=== PATIENT | male | born 1995 | race Caucasian/White ===

== ENCOUNTER → 2016-03-21 | Outpatient (REF) | payer OTHER ==
[2016-03-21 17:09] LABS: ALBUMIN 3.9 GM/DL (3.2-5.2); ALBUMIN/GLOBULIN RATIO 1.22 (1.00-1.93); ALKALINE PHOSPHATASE 91 U/L (45-117); ALT/SGPT 60 U/L (12-78); ANION GAP 11 MEQ/L (8-16); AST/SGOT 24 U/L (15-37); BILIRUBIN,TOTAL 0.6 MG/DL (0.2-1.0); BLOOD UREA NITROGEN 10 MG/DL (7-18); CARBON DIOXIDE LEVEL 24 MEQ/L (21-32); CHLORIDE LEVEL 106 MEQ/L (98-107); CHOLESTEROL LEVEL 140 MG/DL (<200); CREATININE FOR GFR 1.09 MG/DL (0.70-1.30); GLOMERULAR FILTRATION RATE > 60.0 (>60); GLUCOSE, FASTING 107 MG/DL (70-105); MAGNESIUM LEVEL 2.1 MG/DL (1.8-2.4); POTASSIUM SERUM 4.1 MEQ/L (3.5-5.1); SODIUM LEVEL 141 MEQ/L (136-145); TOTAL PROTEIN 7.1 GM/DL (6.4-8.2); TRIGLYCERIDES LEVEL 108 MG/DL (<150)
== END ==
LOC: M SFHCSACK 08:42
PROVIDERS: ATTEND Physician Assistant
DX: E66.01 Morbid (severe) obesity due to excess calories (principal); Z00.00 Encounter for general adult medical examination without abnormal findings; F41.1 Generalized anxiety disorder

== ENCOUNTER 2018-05-30 04:26 | Emergency (ER) | payer MEDICAID, OTHER, SELFPAY ==
[~2018-05-30] VITALS: Ht 182.9 cm; Wt 171.7 kg
[2018-05-30 04:31] VITALS: BP 155/82
== END 2018-05-30 04:45 | disposition left against medical advice (07) ==
LOC: M ED 04:26
DX: F14.280 Cocaine dependence with cocaine-induced anxiety disorder (principal); T40.5X4A Poisoning by cocaine, undetermined, initial encounter; Y92.9 Unspecified place or not applicable; Y99.8 Other external cause status

== ENCOUNTER 2018-05-30 05:31 | Emergency (ER) | payer MEDICAID, OTHER, SELFPAY ==
[~2018-05-30] VITALS: Ht 188 cm; Wt 172.3 kg
[2018-05-30] MEDS ORDERED: LORazepam 2 MG/ML VIAL (J2060) IV STA (06:12)
[2018-05-30] MEDS ORDERED: NS 1,000 ML IV ONE ×2 (06:15)
[2018-05-30 06:17] LABS: HEMATOCRIT 45.4 % (42.0-52.0); MEAN CORPUSCULAR HEMOGLOBIN 29.5 pg (27.0-33.0); MEAN CORPUSCULAR VOLUME 89.4 fl (80.0-96.0); PLATELET COUNT, AUTOMATED 418 10^3/uL (150-450); RED BLOOD COUNT 5.08 10^6/uL (4.30-6.10); WHITE BLOOD COUNT 22.1 10^3/uL (4.0-10.0)
[2018-05-30 06:31] LABS: MB/CK RELATIVE INDEX 0.8 (< OR =4); TROPONIN I 0.03 NG/ML (< 0.10)
[2018-05-30 06:38] LABS: ALBUMIN 4.6 GM/DL (3.2-5.2); ALT/SGPT 36 U/L (12-78); BILIRUBIN,DIRECT 0.1 MG/DL (0.0-0.2); BILIRUBIN,TOTAL 0.4 MG/DL (0.2-1.0); BLOOD UREA NITROGEN 15 MG/DL (7-18); CALCIUM LEVEL 8.8 MG/DL (8.5-10.1); CARBON DIOXIDE LEVEL 19 MEQ/L (21-32); CHLORIDE LEVEL 105 MEQ/L (98-107); CREATININE FOR GFR 2.01 MG/DL (0.70-1.30); ETHYL ALCOHOL (ETHANOL) 0.003 % (0.000-0.010); GLOMERULAR FILTRATION RATE 43.3 (>60); GLUCOSE, FASTING 247 MG/DL (70-100); POTASSIUM SERUM 3.2 MEQ/L (3.5-5.1); SALICYLATE LEVEL < 1.7 MG/DL (5.0-30.0); SODIUM LEVEL 138 MEQ/L (136-145); TOTAL PROTEIN 7.8 GM/DL (6.4-8.2)
[2018-05-30 06:39] LABS: ACETAMINOPHEN LEVEL < 2.0 UG/ML (10.0-30.0)
[2018-05-30 07:05] LABS: AMPHETAMINES LEVEL URINE NEGATIVE (NEGATIVE); BARBITURATES URINE NEGATIVE (NEGATIVE); BENZODIAZEPINES URINE NEGATIVE (NEGATIVE); CANNABINOIDS URINE POSITIVE (NEGATIVE); COCAINE METABOLITE URINE POSITIVE (NEGATIVE); METHADONE URINE NEGATIVE (NEGATIVE); OPIATES URINE NEGATIVE (NEGATIVE); PHENCYCLIDINE URINE NEGATIVE (NEGATIVE)
[2018-05-30 07:16] VITALS: BP 175/81
--- NOTE | 2018-05-30 07:45 | REP ---
Portable chest, 06:23 a.m., single AP semi upright view: Comparison is 01/19/2016. The lung piedra are clear. The cardiac size is normal. The miladys, mediastinum, and skeletal structures are unremarkable. Impression: Negative portable chest. There is no interval change. Electronically Signed by Deon Cherry MD 05/30/2018 07:37 A
--- NOTE | 2018-05-30 21:53 | ECGEPIP ---
Stationary ECG Study 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
== END 2018-05-30 08:13 | disposition left against medical advice (07) ==
LOC: M ED 05:31
DX: F14.10 Cocaine abuse, uncomplicated (principal)
CPT/HCPCS: 36415; 71045; 80048; 80076; 80307; 82550; 82553; 84443; 85027; 93005; 96361; 96374; 99285; G0480; J2060

== ENCOUNTER 2018-05-31 03:42 | Emergency (ER) | payer OTHER, SELFPAY ==
[~2018-05-31] VITALS: Ht 188 cm; Wt 173.0 kg
[2018-05-31 03:42] VITALS: BP 161/83
== END 2018-05-31 04:16 | disposition left against medical advice (07) ==
LOC: M ED 03:42
DX: Z53.21 Procedure and treatment not carried out due to patient leaving prior to being seen by health care provider (principal)

== ENCOUNTER 2018-05-31 08:57 | Inpatient (IN) | payer MEDICAID, OTHER, SELFPAY ==
[~2018-05-31] VITALS: Ht 190.5 cm; Wt 165.2 kg
[2018-05-31] VITALS (12 sets, daily range): BP systolic 142–162; BP diastolic 75–98
--- NOTE | 2018-05-31 09:53 | REP ---
Chest x-ray: Two views. History: Altered mental status. . Comparison study: May 30, 2018. . Findings: The lungs are well inflated and free of infiltrate. The pleural angles are sharp. The heart size is normal. Pulmonary vasculature is not increased. No significant bony abnormality is seen. Impression: Negative chest x-ray. Electronically Signed by Antione Pollock MD 05/31/2018 09:45 A
[2018-05-31 10:05] LABS: HEMATOCRIT 43.2 % (42.0-52.0); HEMOGLOBIN 14.2 g/dl (13.5-17.5); MEAN CORPUSCULAR HGB CONC 32.9 g/dl (32.0-36.5); MEAN CORPUSCULAR VOLUME 88.3 fl (80.0-96.0); PLATELET COUNT, AUTOMATED 305 10^3/uL (150-450); RED BLOOD COUNT 4.89 10^6/uL (4.30-6.10); WHITE BLOOD COUNT 12.7 10^3/uL (4.0-10.0)
[2018-05-31 10:26] LABS: INFLUENZA A AMPLIFICATION NEGATIVE (NEGATIVE); INFLUENZA B AMPLIFICATION NEGATIVE (NEGATIVE)
[2018-05-31 10:48] LABS: ACETAMINOPHEN LEVEL < 2.0 UG/ML (10.0-30.0); ALBUMIN 4.8 GM/DL (3.2-5.2); ALT/SGPT 45 U/L (12-78); BILIRUBIN,DIRECT 0.2 MG/DL (0.0-0.2); BILIRUBIN,TOTAL 0.8 MG/DL (0.2-1.0); BLOOD UREA NITROGEN 14 MG/DL (7-18); CARBON DIOXIDE LEVEL 23 MEQ/L (21-32); CHLORIDE LEVEL 106 MEQ/L (98-107); CREATININE FOR GFR 1.37 MG/DL (0.70-1.30); ETHYL ALCOHOL (ETHANOL) < 0.003 % (0.000-0.010); GLOMERULAR FILTRATION RATE > 60.0 (>60); GLUCOSE, FASTING 100 MG/DL (70-100); POTASSIUM SERUM 3.7 MEQ/L (3.5-5.1); SALICYLATE LEVEL < 1.7 MG/DL (5.0-30.0); SODIUM LEVEL 142 MEQ/L (136-145)
[2018-05-31 11:21] LABS: AMPHETAMINES LEVEL URINE NEGATIVE (NEGATIVE); BARBITURATES URINE NEGATIVE (NEGATIVE); BENZODIAZEPINES URINE POSITIVE (NEGATIVE); CANNABINOIDS URINE POSITIVE (NEGATIVE); COCAINE METABOLITE URINE POSITIVE (NEGATIVE); METHADONE URINE NEGATIVE (NEGATIVE); OPIATES URINE NEGATIVE (NEGATIVE); PHENCYCLIDINE URINE NEGATIVE (NEGATIVE)
[2018-05-31] MEDS ORDERED: MOM 30ML SUSPENSION UDC PO PRN (13:30)
[2018-05-31] MEDS ORDERED: MAALOX 30 ML SUSP *UDC PO PRN (13:30)
[2018-05-31] MEDS ORDERED: ACETAMINOPHEN TAB 650MG DOSE (2X325MG) PO PRN (13:30)
[2018-05-31] MEDS ORDERED: traZODone 50 MG TAB PO PRN (13:30)
[2018-05-31] MEDS ORDERED: LORazepam 2 MG/ML VIAL (J2060) IM STA (16:46)
[2018-05-31] MEDS ORDERED: chlorproMAZINE INJ 50MG/2ML AMP (J3230) IM STA (16:46)
[2018-05-31] MEDS ORDERED: diphenhydrAMINE INJ 50MG/ML VIAL (J1200) IM STA (16:46)
--- NOTE | 2018-05-31 17:12 | MHIR ---
General Date: May 31, 2018 Time Initiated: 17:07 Restraint Documentation Order/Evaluation FACE TO FACE:yes PHYSICIAN ASSESSMENT: pulled fired alarm, psychotic, paranoid, agitated, aggressive, refusing to move passed pt unit barrier door, refusing medications REASON FOR RESTRAINT: Patient poses imminent danger of harming self or others: pulled fired alarm, psychotic, paranoid, agitated, aggressive, refusing to move passed pt unit barrier door, refusing medications DE-ESCALATION INTERVENTIONS ATTEMPTED BEFORE USE OF RESTRAINTS: redirection, staff support, prn meds offered [MECHANICAL AND/OR CHEMICAL] RESTRAINTS USED: mechanical (fought staff during restraints being applied) and chemical (thorazine 100mg im, ativan 2mg im, benadryl 100mg im) LENGTH OF TIME ORDERED IN RESTRAINTS: until pt no longer a danger to himself or others WHEN TO DISCONTINUE RESTRAINTS: When the patient is no longer a threat to themselves or others. Post evaluation of restraint due in 24 hours. ANAIS SALMERON DO May 31, 2018 5:12 pm
[2018-05-31] MEDS: THIAMINE 100 MG TAB PO SCH (21:00)
[2018-06-01 06:37] VITALS: BP 158/88
[2018-06-01] MEDS: OLANZapine ORAL DISINTEGRATING TAB 5MG PO PRN (06:40)
[2018-06-01 06:48] VITALS: BP 158/88
[2018-06-01] MEDS: LORazepam 2 MG TAB PO PRN ×2 (06:55→14:20)
--- NOTE | 2018-06-01 09:10 | HPE ---
DATE OF ADMISSION: 05/31/2018 Please refer to the psychiatric history and evaluation for further details on this admission. This examination and history is intended for medical issues which may need treatment, followup or consultation on this 23-year-old male. ALLERGIES: No known drug allergies. He has environmental allergies. PRIMARY CARE PROVIDER: He states currently none. SOCIAL HISTORY: He is single. ETOH - he states he drinks daily, though his urine toxicology was negative for alcohol. He says he smokes occasionally. Recreational drug use - his urine was positive for benzodiazepines, cocaine and marijuana. PAST MEDICAL HISTORY: He is unsure, answers are mixed at times. He states he has asthma, but he does not take anything for it, but sometimes he does if it is the season. Currently he says he is taking nothing. PAST SURGICAL HISTORY: He states negative. HOME MEDICATIONS: He states none. FAMILY HISTORY: He is unsure of. LABORATORY STUDIES: White count up slightly at 2.7. Hemoglobin 14.2. Hematocrit 43.2. Platelets 305. BUN 14 and creatinine 1.37. AST 57. ALT 45. TSH 2.33 . Urine was positive for benzodiazepines, cocaine, cannabis. Influenza A negative. Chest x-ray negative. REVIEW OF SYSTEMS: No complaint of headache. No blurred or double vision. No fever. No chills. No tinnitus. No hoarseness. No difficulty swallowing. No lightheadedness. No vertigo. Cardiovascular: No complaints of chest pain, shortness of breath, palpitations, or edema. Respiratory: No cough. No sputum production. No hemoptysis. No orthopnea. No wheeze. GI: No complaints of nausea, vomiting or diarrhea. No hematochezia. No melena. No complaints of abdominal pain. : No hematuria, dysuria or frequency. Musculoskeletal: He is favoring his right arm. He has to use his left hand to move his right arm. He cannot spontaneously move the arm above the shoulder. He says he has just noted this the last couple of days. No joint redness or swelling. Endocrine: No polyuria, polydipsia or polyphagia. Hematologic: No history of anemia. Neurologic: No history of seizures that he knows of. Psychologic: See psychiatric history and physical exam. PHYSICAL EXAMINATION: 23-year-old cooperative male in no acute distress. Height 75 inches. Blood pressure since arrival to the floor and in the ER has been elevated anywhere from 136/97 to 150/98. Pulse 100. Respirations 18. Temperature 98.1. Oxygen saturation 99% on room air. The patient is alert and oriented to person and place. Pupils equal and reactive to light. Extraocular movements intact. Cornea and sclera clear. Conjunctivae normal. No facial asymmetry. Pharynx, tongue and gums pink and moist. Tongue is midline. Neck is supple, without lymphadenopathy. No thyromegaly. No goiter. Carotids 2+, without bruit. Chest clear to auscultation, without wheeze or retraction. Heart is regular. Without murmur or gallop. Abdomen benign. Bowel sounds positive. Genitourinary ()/Rectal: Not done. Extremities show no cyanosis, clubbing or edema. Unable to lift right arm above. He has to use his left hand to grab his right arm and raise the right arm. Hand grasps are equal. Peripheral pulses equal and palpable bilaterally. Skin is warm and dry. IMPRESSION AND PLAN: 1. Psychiatric. Plan per psychiatry. 2. Occasional smoking. nicotine patch is available 3. Inability to move right arm. Sensation is equal. Right shoulder x-ray has been ordered. Will recommend orthopedic consult. 4. Leukocytosis. Will repeat CBC in a.m. MTDD
[2018-06-01] MEDS: THIAMINE 100 MG TAB PO SCH ×2 (09:19→21:17)
[2018-06-01] MEDS: MULTIVITAMINS/MINERALS THERAP 1 TAB PO SCH (09:19)
[2018-06-01] MEDS: FOLIC ACID 1 MG TAB PO SCH (09:19)
--- NOTE | 2018-06-01 10:53 | MHPR ---
General Date: May 31, 2018 Time: 21:00 Post-Restraint Evaluation THE OUTCOME OF THE RESTRAINT: good EFFECTIVENESS OF THE RESTRAINT: Mechanical and/or chemical: positive, pt called down and no longer agitated/aggressive. ANY EVIDENCE THAT THE PATIENT WAS AFFECTED EMOTIONALLY: no ANY NEED FOR COUNSELING/ASSISTANCE: no CHANGES IN TREATMENT PLAN: continue current plan RECOMMENDATIONS FOR FUTURE INCIDENTS: continue current plan ANAIS SALMERON DO Jun 01, 2018 10:53 am
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
[2018-06-01] MEDS ORDERED: PALIPERIDONE 3 MG ER TAB (INVEGA) PO ONE (12:00)
[2018-06-01] MEDS ORDERED: BACITRACIN OINT 30GM TOP SCH (12:30)
[2018-06-01 14:14] VITALS: BP 141/91
[2018-06-01 18:28] VITALS: BP 140/82
[2018-06-01] MEDS: BACITRACIN OINT 30GM TOP SCH (18:49)
[2018-06-01] MEDS ORDERED: PALIPERIDONE 3 MG ER TAB (INVEGA) PO SCH (21:00)
[2018-06-02] MEDS: BACITRACIN OINT 30GM TOP SCH ×2 (00:20→09:42)
[2018-06-02 07:10] VITALS: BP 152/80
[2018-06-02] MEDS: MULTIVITAMINS/MINERALS THERAP 1 TAB PO SCH (09:41)
[2018-06-02] MEDS: THIAMINE 100 MG TAB PO SCH ×2 (09:41→20:24)
[2018-06-02] MEDS: PALIPERIDONE 3 MG ER TAB (INVEGA) PO SCH ×2 (09:41→20:24)
[2018-06-02] MEDS: FOLIC ACID 1 MG TAB PO SCH (09:41)
[2018-06-02] MEDS ORDERED: BENZTROPINE 1 MG TAB PO PRN (12:00)
[2018-06-02] MEDS: BENZTROPINE 1 MG TAB PO SCH ×2 (13:45→20:23)
--- NOTE | 2018-06-02 13:48 | MHIPNPDOC ---
[facility] Progress Note Progress Note DATE OF SERVICE: 06/02/18 HISTORY: See HPI. Interval history: Patient continues to be mildly disorganized, but is less paranoid than previous days. Understand he is safe on the unit and denies others want to harm him or are against him. He continues to have delusions and displays magical thinking discussing how he can influence the world through using "metaphysical spheres of influence". States he has no HI or thoughts of harming others. He also denies SI. He remains somewhat concrete and has trouble with abstract reasoning and associations. He endorses poor recollection of what was happening before he came into the hospital, but states with living with mother in town until this February then reports living with a close friend who he uses drugs with "only once in a while". States he was admitted to [place] in [phone] for being "crazy". VITAL SIGNS: See below. NEW TEST RESULTS: see below, ordered hba1c, lipid panel for tomorrow AM, repeat CMP, CBC pending CURRENT MEDICATIONS: See below. MENTAL STATUS EXAMINATION: Patient is a 23-year old male, who is in no acute distress, alert, oriented, poor hygiene, normal eye-contact, cooperative in hospital clothing. Speech: Is normal rate, rhythm, volume. Language skills are poor. Thought processes including: tangential, mildly disorganized, improved from prior days. Thought content: delusions related to metaphysical universe, magical thinking. Abstract reasoning, and computation: concrete. Description of associations: poor. Description of abnormal or psychotic thoughts: see above, feels safer than previous days and agreeable to treatment. Denies AVH, SI, HI. Judgment: poor. Insight: poor. Orientation: x4. Recent and remote memory: poor. Attention span and concentration: poor, says he is not thinking straight. Language: urdu. Fund of knowledge: Unable to assess. Mood: "alright". Affect: mildly disorganized, less paranoid, does not appear to be responding to internal stimuli. DIAGNOSES: 1.Schizophrenia, paranoid subtype 2. Cocaine/cannabis/benzodiazepines use disorder ASSESSMENT: Was removed from 1: as he consents to safety and has not displayed aggressive behavior while on the unit. Less paranoid compared to Saturday when he was coded for pulling fire alarm. Was counselled regarding cannabis use in context of psychotic disorder, but remains mildly disorganized and tangential with poor insight. For tomorrow AM: Ordered repeat CMP since AST elevated in 50's, Cr was elevated at 1.37, encouraged PO intake. Ordered repeat CBC since mild leukocytosis on admission, denies F. Increased paliperidone from 3 mg PO BID to 3 mg QAM and 6 mg QPM. Reported "nerve pain in L arm" so was started on cogentin 1 mg PO BID for possible EPS, will monitor if symptoms improve. MANAGEMENT PLAN: See above. TIME SPENT: 20 minutes. Vital Signs Vital Signs Date Time Temp Pulse Resp B/P (MAP) Pulse Ox O2 Delivery O2 Flow Rate FiO2 06/02/18 07:10 97.8 70 18 152/80 (104) 05/31/18 14:04 99 Room Air Current Medications Current Medications Acetaminophen (Tylenol Tab) 650 mg Q6HP PRN PO HEADACHE or DISCOMFORT; Start 05/31/18 at 13:30 Al Hydrox/Mg Hydrox/Simethicone (Mylanta) 30 ml Q4HP PRN PO HEARTBURN/INDIGESTION; Start 05/31/18 at 13:30 Bacitracin (Bacitracin Oint) Apply to sores on feet DAILY TOP Last administered on 06/02/18at 09:42; Start 06/01/18 at 09:00 Bacitracin (Bacitracin Oint) Apply to sores on feet DAILYPRN TOP ; Start 06/01/18 at 12:30; Stop 06/01/18 at 12:30; Status DC Chlorpromazine HCl (Thorazine) 100 mg STAT STAT IM Last administered on 05/31/18at 17:06; Start 05/31/18 at 16:46; Stop 05/31/18 at 16:50; Status DC Diphenhydramine HCl (Benadryl) 50 mg STAT STAT IM Last administered on 05/31/18at 17:00; Start 05/31/18 at 16:46; Stop 05/31/18 at 16:50; Status DC Folic Acid (Folic Acid) 1 mg DAILY PO Last administered on 06/02/18at 09:41; Start 06/01/18 at 09:00 Home Med (Med Rec Complete!) ASDIRECTED XX ; Start 05/31/18 at 13:45; Stop 05/31/18 at 13:52; Status DC Lorazepam (Ativan) 2 mg ASDIRECTED PRN PO SEE PROTOCOL Last administered on 06/01/18 14:20; Start 05/31/18 at 20:15 Lorazepam (Ativan) 2 mg STAT STAT IM Last administered on 05/31/18 17:00; Start 05/31/18 at 16:46; Stop 05/31/18 at 16:50; Status DC Magnesium Hydroxide (Milk Of Magnesia) 30 ml DAILYPRN PRN PO CONSTIPATION; Start 05/31/18 at 13:30 Multivitamins (Theragram-M) 1 tab DAILY PO Last administered on 06/02/18 09:41; Start 06/01/18 at 09:00 Olanzapine (ZyPREXA ZYDIS) 10 mg Q6HP PRN PO ANXIETY/AGITATION Last administered on 06/01/18 06:40; Start 05/31/18 at 13:45 Paliperidone (Invega) 3 mg QAM PO Last administered on 06/02/18 09:41; Start 06/02/18 at 09:00 Paliperidone (Invega) 3 mg QHS PO Last administered on 06/01/18 21:17; Start 06/01/18 at 21:00 Thiamine HCl (Thiamine HCl) 100 mg BID PO Last administered on 06/02/18 09:41; Start 05/31/18 at 21:00; Stop 06/03/18 at 09:01 Trazodone HCl (Desyrel) 50 mg QHSP PRN PO INSOMNIA Last administered on 06/01/18 21:17; Start 05/31/18 at 13:30 Allergies Coded Allergies: No Known Allergies (Verified , 05/31/18) KATELYN MATTA PGY-1 Jun 02, 2018 11:55
[2018-06-02 18:00] VITALS: BP 134/92
[2018-06-02 22:21] VITALS: BP 134/92
[2018-06-03 06:50] VITALS: BP 127/69
[2018-06-03 06:56] VITALS: BP 127/69
[2018-06-03 07:24] LABS: HEMATOCRIT 43.5 % (42.0-52.0); HEMOGLOBIN 14.3 g/dl (13.5-17.5); MEAN CORPUSCULAR HEMOGLOBIN 29.1 pg (27.0-33.0); MEAN CORPUSCULAR HGB CONC 32.9 g/dl (32.0-36.5); MEAN CORPUSCULAR VOLUME 88.4 fl (80.0-96.0); PLATELET COUNT, AUTOMATED 286 10^3/uL (150-450); RED BLOOD COUNT 4.92 10^6/uL (4.30-6.10); WHITE BLOOD COUNT 8.4 10^3/uL (4.0-10.0)
[2018-06-03 07:52] LABS: HEMOGLOBIN A1c 5.2 %
[2018-06-03 08:03] LABS: ALBUMIN 3.8 GM/DL (3.2-5.2); ALT/SGPT 37 U/L (12-78); BILIRUBIN,TOTAL 0.8 MG/DL (0.2-1.0); BLOOD UREA NITROGEN 9 MG/DL (7-18); CALCIUM LEVEL 8.9 MG/DL (8.5-10.1); CARBON DIOXIDE LEVEL 28 MEQ/L (21-32); CHLORIDE LEVEL 109 MEQ/L (98-107); CHOLESTEROL LEVEL 128 MG/DL (<200); CHOLESTEROL RISK RATIO 3.282 (<5); CREATININE FOR GFR 1.14 MG/DL (0.70-1.30); GLOMERULAR FILTRATION RATE > 60.0 (>60); GLUCOSE, FASTING 92 MG/DL (70-100); HDL CHOLESTEROL 39 MG/DL (>40); LDL CHOLESTEROL 74 MG/DL (<100); NON-HDL-C 89 MG/DL; POTASSIUM SERUM 3.9 MEQ/L (3.5-5.1); SODIUM LEVEL 142 MEQ/L (136-145); TOTAL PROTEIN 6.7 GM/DL (6.4-8.2); TRIGLYCERIDES LEVEL 74 MG/DL (<150)
[2018-06-03] MEDS: BENZTROPINE 1 MG TAB PO SCH ×2 (09:46→21:23)
[2018-06-03] MEDS: FOLIC ACID 1 MG TAB PO SCH (09:46)
[2018-06-03] MEDS: MULTIVITAMINS/MINERALS THERAP 1 TAB PO SCH (09:46)
[2018-06-03] MEDS: THIAMINE 100 MG TAB PO SCH (09:46)
[2018-06-03] MEDS: PALIPERIDONE 3 MG ER TAB (INVEGA) PO SCH ×2 (09:46→21:24)
[2018-06-03] MEDS: BACITRACIN OINT 30GM TOP SCH (09:46)
--- NOTE | 2018-06-03 12:04 | MHIPNPDOC ---
[facility] Progress Note Progress Note DATE OF SERVICE: 06/03/18 HISTORY: See HPI. Interval history: Patient says he is feeling better today. He is no longer standing outside his room paranoid. He appeared more comfortable and organized during interview. States he is not currently having AVH/SI/HI. Says his mood is improving and he is less anxious. No longer interested in metaphysical purposes of being. Agreeable to receiving paliperidone injection tomorrow possibly, but does endorse being unable to raise his R arm, still has sensation in hand, no coldness and little to no pain. He agrees to get xray re-ordered since he was disorganized when last ordered. Says he will try to start attending groups. VITAL SIGNS: See below. NEW TEST RESULTS: see below, hba1c 5.2%, lipid panel WNL apart from low HDL at 39 mg/dl. CURRENT MEDICATIONS: See below. MENTAL STATUS EXAMINATION: Patient is a 23-year old male, who is in no acute distress, alert, oriented, poor hygiene, normal eye-contact, cooperative in hospital clothing. Speech: Is normal rate, rhythm, volume. Language skills are poor. Thought processes including: tangential, mildly disorganized, improved from prior days. Thought content: delusions related to metaphysical universe, magical thinking. Abstract reasoning, and computation: improving Description of associations: imp roving Description of abnormal or psychotic thoughts: see above, feels safer than previous days and agreeable to treatment. Denies AVH, SI, HI. Judgment: poor. Insight: poor. Orientation: x4. Recent and remote memory: poor. Attention span and concentration: poor, says he is not thinking straight. Language: yemeni. Fund of knowledge: Unable to assess. Mood: "good". Affect: less disorganized, mild anxiety. DIAGNOSES: 1. Schizophrenia, paranoid subtype 2. Cocaine/cannabis/benzodiazepines use disorder ASSESSMENT: Today he no longer displays magical thinking and is more organized, denies AVH, cosme. Agrees to re-ordered R shoulder xray for weakness R arm. Will consider orthopedics consult. Agrees to continue medications including paliperid one 3 mg QAM, 6 mg QHS, with plan for Im injection. Labs are unremarkable and apart from his R arm, he is relatively calm and comfortable. Denies SI/HI/AVH/cosme, agreeable to continued to stay for stabilization and safety. Counselled regarding substance use, including cocaine and particularly cannabis which can worsen psychosis and pose serious health risk, as well as risks from benzodiazepine withdrawal, including psychosis and possible risk of /withdrawal seizures. MANAGEMENT PLAN: See above. TIME SPENT: 25 minutes. Vital Signs Vital Signs Date Time Temp Pulse Resp B/P (MAP) Pulse Ox O2 Delivery O2 Flow Rate FiO2 06/03/18 06:56 101 127/69 06/03/18 06:50 97.6 14 06/02/18 18:00 99 05/31/18 14:04 Room Air Laboratory Data 24H Labs Laboratory Tests 2 06/03/18 07:00: Nucleated Red Blood Cells % (auto) 0.0, Anion Gap 5L, Glomerular Filtration Rate > 60.0, Estimated Mean Plasma Glucose 103, Hemoglobin A1c 5.2, Blood Urea Nitrogen 9, Creatinine 1.14, Sodium Level 142, Potassium Level 3.9, Chloride Level 109H, Carbon Dioxide Level 28, Calcium Level 8.9, Aspartate Amino Transf (AST/SGOT) 28, Alanine Aminotransferase (ALT/SGPT) 37, Alkaline Phosphatase 64, Total Bilirubin 0.8, Triglycerides Level 74, LDL Cholesterol 74, Total Protein 6.7, Albumin 3.8#, Albumin/Globulin Ratio 1.31, Total Cholesterol 128, Non-HDL Cholesterol (LDL + VLDL) 89, Total HDL Cholesterol 39L, Cholesterol/HDL Ratio 3.282 CBC/BMP Laboratory Tests 06/03/18 07:00 Red Blood Count 4.92, Mean Corpuscular Volume 88.4, Mean Corpuscular Hemoglobin 29.1, Mean Corpuscular Hemoglobin Concent 32.9, Red Cell Distribution Width 12.9, Calcium Level 8.9, Aspartate Amino Transf (AST/SGOT) 28, Alanine Aminotransferase (ALT/SGPT) 37, Alkaline Phosphatase 64, Total Bilirubin 0.8, Triglycerides Level 74, LDL Cholesterol 74, Total Protein 6.7, Albumin 3.8 # Current Medications Current Medications Acetaminophen (Tylenol Tab) 650 mg Q6HP PRN PO HEADACHE or DISCOMFORT; Start 05/31/18 at 13:30 Al Hydrox/Mg Hydrox/Simethicone (Mylanta) 30 ml Q4HP PRN PO HEARTBURN/INDIGESTION; Start 05/31/18 at 13:30 Bacitracin (Bacitracin Oint) Apply to sores on feet DAILY TOP Last administered on 06/03/18at 09:46; Start 06/01/18 at 09:00 Bacitracin (Bacitracin Oint) Apply to sores on feet DAILYPRN TOP ; Start 06/01/18 at 12:30; Stop 06/01/18 at 12:30; Status DC Benztropine Mesylate (Cogentin) 1 mg BID PO Last administered on 06/03/18at 09:46; Start 06/02/18 at 13:45 Benztropine Mesylate (Cogentin) 1 mg Q2HP PRN PO INCREASED AGITATION; Start 06/02/18 at 12:00; Status Cancel Chlorpromazine HCl (Thorazine) 100 mg STAT STAT IM Last administered on 05/31/18at 17:06; Start 05/31/18 at 16:46; Stop 05/31/18 at 16:50; Status DC Diphenhydramine HCl (Benadryl) 50 mg STAT STAT IM Last administered on 05/31/18at 17:00; Start 05/31/18 at 16:46; Stop 05/31/18 at 16:50; Status DC Folic Acid (Folic Acid) 1 mg DAILY PO Last administered on 06/03/18at 09:46; Start 06/01/18 at 09:00 Home Med (Med Rec Complete!) ASDIRECTED XX ; Start 05/31/18 at 13:45; Stop 05/31/18 at 13:52; Status DC Lorazepam (Ativan) 2 mg ASDIRECTED PRN PO SEE PROTOCOL Last administered on 06/01/18at 14:20; Start 05/31/18 at 20:15 Lorazepam (Ativan) 2 mg STAT STAT IM Last administered on 05/31/18at 17:00; Start 05/31/18 at 16:46; Stop 05/31/18 at 16:50; Status DC Magnesium Hydroxide (Milk Of Magnesia) 30 ml DAILYPRN PRN PO CONSTIPATION; Start 05/31/18 at 13:30 Multivitamins (Theragram-M) 1 tab DAILY PO Last administered on 06/03/18at 09:46; Start 06/01/18 at 09:00 Olanzapine (ZyPREXA ZYDIS) 10 mg Q6HP PRN PO ANXIETY/AGITATION Last admini stered on 06/01/18 06:40; Start 05/31/18 at 13:45 Paliperidone (Invega) 3 mg QAM PO Last administered on 06/03/18 09:46; Start 06/02/18 at 09:00 Paliperidone (Invega) 3 mg QHS PO Last administered on 06/01/18 21:17; Start 06/01/18 at 21:00; Stop 06/02/18 at 12:03; Status DC Paliperidone (Invega) 6 mg QHS PO Last administered on 06/02/18at 20:24; Start 06/02/18 at 21:00 Thiamine HCl (Thiamine HCl) 100 mg BID PO Last administered on 06/03/18 09:46; Start 05/31/18 at 21:00; Stop 06/03/18 at 09:01; Status DC Trazodone HCl (Desyrel) 50 mg QHSP PRN PO INSOMNIA Last administered on 06/01/18 21:17; Start 05/31/18 at 13:30 Allergies Coded Allergies: No Known Allergies (Verified , 05/31/18) KATELYN MATTA PGY-1 Jun 03, 2018 12:04
--- NOTE | 2018-06-03 14:39 | REP ---
REASON: Shoulder weakness. PRIORS: None. SHOULDER: COMPARISON: No priors. FINDINGS: Three views of the right shoulder were performed. The acromioclavicular and glenohumeral relationships are within normal limits. There is no acute fracture or destructive osseous lesions. Electronically Signed by Duncan Spencer DO 06/03/2018 03:53 P
[2018-06-03 18:32] VITALS: BP 140/81
[2018-06-04 06:59] VITALS: BP 133/65
[2018-06-04 07:00] VITALS: BP 133/65
[2018-06-04] MEDS: FOLIC ACID 1 MG TAB PO SCH (08:26)
[2018-06-04] MEDS: MULTIVITAMINS/MINERALS THERAP 1 TAB PO SCH (08:26)
[2018-06-04] MEDS: PALIPERIDONE 3 MG ER TAB (INVEGA) PO SCH ×2 (08:26→20:18)
[2018-06-04] MEDS: BENZTROPINE 1 MG TAB PO SCH ×2 (08:26→20:18)
[2018-06-04] MEDS: BACITRACIN OINT 30GM TOP SCH (08:27)
[2018-06-04] MEDS ORDERED: PALIPERIDONE PALMITATE 234 MG/1.5 ML INJ (INVEGA SUSTENNA)(J2426) IM ONE (11:00)
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
[2018-06-04 18:00] VITALS: BP 128/78
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
[2018-06-05 07:09] VITALS: BP 146/68
[2018-06-05] MEDS: BENZTROPINE 1 MG TAB PO SCH ×2 (08:13→21:15)
[2018-06-05] MEDS: FOLIC ACID 1 MG TAB PO SCH (08:13)
[2018-06-05] MEDS: MULTIVITAMINS/MINERALS THERAP 1 TAB PO SCH (08:13)
[2018-06-05] MEDS: BACITRACIN OINT 30GM TOP SCH ×2 (08:14→21:16)
--- NOTE | 2018-06-05 08:16 | REP ---
CT Head without contrast HISTORY: Brachial plexus injury COMPARISON: None There is no intraparenchymal hemorrhage, acute infarct, mass or midline shift. The ventricular system is normal in appearance. There is no extra cerebral collection. There is no fracture. The visualized sinuses are clear. IMPRESSION: There is no intracranial lesion. Electronically Signed by Mario Evans MD 06/05/2018 08:07 A
--- NOTE | 2018-06-05 08:27 | REP ---
CT cervical spine without contrast HISTORY: Possible brachial plexus injury COMPARISON: None There is no acute fracture or subluxation. There is no disc bulge or herniation. The spinal canal and neural foramina are patent. The intervertebral discs and vertebral bodies are normal in height. IMPRESSION: There is no acute fracture or subluxation. Electronically Signed by Mario Evans MD 06/05/2018 08:18 A
--- NOTE | 2018-06-05 15:46 | ECGEPIP ---
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 Electronically Signed On 06-05-2018 15:46:40 EDT by Gato Head
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
[2018-06-05 18:09] VITALS: BP 120/80
[2018-06-05] MEDS ORDERED: ALPRAZolam 0.5 MG TAB PO ONE (19:30)
[2018-06-05] MEDS: PALIPERIDONE 3 MG ER TAB (INVEGA) PO SCH (21:15)
[2018-06-06 07:00] VITALS: BP 141/75
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
--- NOTE | 2018-06-06 09:06 | REP ---
MR CERVICAL SPINE WITHOUT CONTRAST: HISTORY: Right arm weakness. There is no disc bulge or herniation. The spinal canal and neural foramina are patent. The spinal cord is normal in signal intensity. Addie signal intensity is present in the cervical vertebral bodies. There is slight loss of the normal lordotic curve. IMPRESSION: There is no disc bulge or herniation. Electronically Signed by Mario Evans MD 06/06/2018 09:09 A
[2018-06-06] MEDS: BENZTROPINE 1 MG TAB PO SCH ×2 (09:34→20:49)
[2018-06-06] MEDS: FOLIC ACID 1 MG TAB PO SCH (09:34)
[2018-06-06] MEDS: MULTIVITAMINS/MINERALS THERAP 1 TAB PO SCH (09:34)
[2018-06-06] MEDS: BACITRACIN OINT 30GM TOP SCH ×2 (09:35→20:50)
--- NOTE | 2018-06-06 12:52 | MHIPNPDOC ---
[facility] Progress Note Progress Note DATE OF SERVICE: 06/06/18 MENTAL STATUS EXAMINATION: Patient is a 23-year old male, who is in no acute distress, alert, oriented, good hygiene, normal eye-contact, cooperative in hospital clothing. Speech: Is normal rate, rhythm, volume. Language skills are fair Thought processes including: linear, logical Thought content: I didn't elicit today any metaphysical/magical delusions Abstract reasoning, and computation: fair. He is able to subtract 7's from a hundred Description of associations: normal Description of abnormal or psychotic thoughts: Denies AVH, SI, HI. Judgment: improving Insight: fair Orientation: x4. Recent and remote memory: improving but he has memory gaps of events that happe chuy during his childhood Attention span and concentration: improved Language: Upper Sorbian. Fund of knowledge: borderline Mood: "I can think clearly now, it wa never like this before". Affect: euthymic, less anxious, full range, smiles/laughs. DIAGNOSES: 1. Schizophrenia, paranoid subtype 2. Cocaine/cannabis/benzodiazepines use disorder ASSESSMENT: Patient couldn't have his MRI performed last night because he felt extremely uncomfortable with his arm and shoulder squeezed and he experienced numbness in his arm and his hand, therefore the test was cancelled but apparently the Cervical spine MRI could be performed and it is normal. He say he is beginning to have some sensation on his right hand but there's no major change. Dr. Lopez saw him yesterday and he recommended the MRI because previous records were retrieved and it was noticed that the patient has no metal implants in his body. He also recommended an EMG that would have to b performed as outpatient. Patient's mental status has greatly improved. I couldn't elicit any paranoia or bizarre delusions. His mood and affect have improved. Possible discharge on Saturday. [facility] referral has been done. MANAGEMENT PLAN: See above. TIME SPENT: 20 minutes. Vital Signs Vital Signs Date Time Temp Pulse Resp B/P (MAP) Pulse Ox O2 Delivery O2 Flow Rate FiO2 06/06/18 07:00 98.1 62 16 141/75 (97) 06/05/18 08:21 Room Air 06/04/18 18:00 99 Current Medications Current Medications Acetaminophen (Tylenol Tab) 650 mg Q6HP PRN PO HEADACHE or DISCOMFORT; Start 05/31/18 at 13:30 Al Hydrox/Mg Hydrox/Simethicone (Mylanta) 30 ml Q4HP PRN PO HEARTBURN/INDIGESTION; Start 05/31/18 at 13:30 Bacitracin (Bacitracin Oint) Apply to sores on feet BID TOP Last administered on 06/06/18at 09:35; Start 06/05/18 at 21:00 Bacitracin (Bacitracin Oint) Apply to sores on feet DAILY TOP Last administered on 06/05/18at 08:14; Start 06/01/18 at 09:00; Stop 06/05/18 at 09:48; Status DC Bacitracin (Bacitracin Oint) Apply to sores on feet DAILYPRN TOP ; Start 06/01/18 at 12:30; Stop 06/01/18 at 12:30; Status DC Benztropine Mesylate (Cogentin) 1 mg BID PO Last administered on 06/06/18at 09:34; Start 06/02/18 at 13:45 Benztropine Mesylate (Cogentin) 1 mg Q2HP PRN PO INCREASED AGITATION; Start 06/02/18 at 12:00; Status Cancel Chlorpromazine HCl (Thorazine) 100 mg STAT STAT IM Last administered on 05/31/18at 17:06; Start 05/31/18 at 16:46; Stop 05/31/18 at 16:50; Status DC Diphenhydramine HCl (Benadryl) 50 mg STAT STAT IM Last administered on 05/31/18at 17:00; Start 05/31/18 at 16:46; Stop 05/31/18 at 16:50; Status DC Folic Acid (Folic Acid) 1 mg DAILY PO Last administered on 06/06/18at 09:34; Start 06/01/18 at 09:00 Home Med (Med Rec Complete!) ASDIRECTED XX ; Start 05/31/18 at 13:45; Stop 05/31/18 at 13:52; Status DC Lorazepam (Ativan) 2 mg ASDIRECTED PRN PO SEE PROTOCOL Last administered on 06/01/18at 14:20; Start 05/31/18 at 20:15 Lorazepam (Ativan) 2 mg STAT STAT IM Last administered on 05/31/18at 17:00; Start 05/31/18 at 16:46; Stop 05/31/18 at 16:50; Status DC Magnesium Hydroxide (Milk Of Magnesia) 30 ml DAILYPRN PRN PO CONSTIPATION; Start 05/31/18 at 13:30 Multivitamins (Theragram-M) 1 tab DAILY PO Last administered on 06/06/18 09:34; Start 06/01/18 at 09:00 Olanzapine (ZyPREXA ZYDIS) 10 mg Q6HP PRN PO ANXIETY/AGITATION Last administered on 06/01/18at 06:40; Start 05/31/18 at 13:45 Paliperidone (Invega) 3 mg QAM PO Last administered on 06/04/18at 08:26; Start 06/02/18 at 09:00; Stop 06/04/18 at 09:56; Status DC Paliperidone (Invega) 3 mg QHS PO Last administered on 06/01/18at 21:17; Start 06/01/18 at 21:00; Stop 06/02/18 at 12:03; Status DC Paliperidone (Invega) 6 mg QHS PO Last administered on 06/05/18at 21:15; Start 06/02/18 at 21:00 Thiamine HCl (Thiamine HCl) 100 mg BID PO Last administered on 06/03/18at 09:46; Start 05/31/18 at 21:00; Stop 06/03/18 at 09:01; Status DC Trazodone HCl (Desyrel) 50 mg QHSP PRN PO INSOMNIA Last administered on 06/01/18 21:17; Start 05/31/18 at 13:30 Allergies Coded Allergies: No Known Allergies (Verified , 05/31/18) LAY JEROME MD Jun 06, 2018 12:47
[2018-06-06 17:24] VITALS: BP 146/74
[2018-06-06 18:08] VITALS: BP 133/77
[2018-06-06] MEDS: PALIPERIDONE 3 MG ER TAB (INVEGA) PO SCH (20:49)
[2018-06-07 07:13] VITALS: BP 105/65
[2018-06-07] MEDS: MULTIVITAMINS/MINERALS THERAP 1 TAB PO SCH (08:13)
[2018-06-07] MEDS: BENZTROPINE 1 MG TAB PO SCH ×2 (08:13→20:19)
[2018-06-07] MEDS: BACITRACIN OINT 30GM TOP SCH ×2 (08:13→20:19)
[2018-06-07] MEDS: FOLIC ACID 1 MG TAB PO SCH (08:13)
[2018-06-07 18:00] VITALS: BP 123/69
[2018-06-07] MEDS: PALIPERIDONE 3 MG ER TAB (INVEGA) PO SCH (20:19)
[2018-06-08 06:36] VITALS: BP 132/63
[2018-06-08] MEDS: MULTIVITAMINS/MINERALS THERAP 1 TAB PO SCH (09:10)
[2018-06-08] MEDS: FOLIC ACID 1 MG TAB PO SCH (09:10)
[2018-06-08] MEDS: BENZTROPINE 1 MG TAB PO SCH ×2 (09:10→20:33)
[2018-06-08] MEDS: BACITRACIN OINT 30GM TOP SCH ×2 (09:10→20:33)
[2018-06-08 18:00] VITALS: BP 135/79
[2018-06-08] MEDS: OLANZapine ORAL DISINTEGRATING TAB 5MG PO PRN (19:36)
[2018-06-08] MEDS: PALIPERIDONE 3 MG ER TAB (INVEGA) PO SCH (20:33)
[2018-06-09 06:38] VITALS: BP 138/73
[2018-06-09] MEDS: FOLIC ACID 1 MG TAB PO SCH (08:09)
[2018-06-09] MEDS: BENZTROPINE 1 MG TAB PO SCH (08:09)
[2018-06-09] MEDS: MULTIVITAMINS/MINERALS THERAP 1 TAB PO SCH (08:09)
[2018-06-09] MEDS: BACITRACIN OINT 30GM TOP SCH (08:10)
[2018-06-09] MEDS ORDERED: OLANZapine ORAL DISINTEGRATING TAB 5MG PO SCH (09:00)
[2018-06-09] MEDS ORDERED: PALIPERIDONE PALMITATE 156 MG/1ML INJ(INVEGA SUSTENNA)(J2426) IM ONE (10:15)
[2018-06-09] MEDS ORDERED: TRAZO50TA PO (11:10)
[2018-06-09] MEDS ORDERED: ZYPR5TAB2 PO (11:10)
[2018-06-09] MEDS ORDERED: BENZ-52 PO (11:10)
[2018-06-09] MEDS ORDERED: BACI50OI TOP (11:10)
[2018-06-09] MEDS ORDERED: VITMTA PO (11:10)
[2018-06-09] MEDS ORDERED: FOLI1TAB11 PO (11:10)
[2018-06-09] MEDS ORDERED: INVE234I IM ×2 (11:12→11:16)
[2018-06-09] MEDS ORDERED: LORazepam 2 MG TAB PO PRN (11:15)
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
== END 2018-06-09 11:45 | disposition home or self-care (01) | DRG 750 ==
LOC: M ED 08:57 → M ED INP 13:25 → M PSY 14:20
PROVIDERS: ADMIT Psychiatry & Neurology Psychiatry; ATTEND Psychiatry & Neurology Psychiatry
DX: F20.0 Paranoid schizophrenia (principal); F14.90 Cocaine use, unspecified, uncomplicated; F12.90 Cannabis use, unspecified, uncomplicated; F15.90 Other stimulant use, unspecified, uncomplicated; Z91.19 Patient's noncompliance with other medical treatment and regimen; Z79.899 Other long term (current) drug therapy; R20.0 Anesthesia of skin; G54.0 Brachial plexus disorders

== ENCOUNTER → 2018-06-27 | Outpatient (CLI) | payer OTHER, MEDICAID ==
[~2018-06-27] MED LIST: BACI50OI TOP; BENZ-52 PO; FOLI1TAB11 PO; INVE234I IM; TRAZO50TA PO; VITMTA PO; ZYPR5TAB2 PO
== END ==
LOC: M OUTALCOH 07:53
PROVIDERS: ATTEND Psychiatry & Neurology Psychiatry
DX: F12.20 Cannabis dependence, uncomplicated (principal)

== ENCOUNTER → 2018-08-15 | Outpatient (CLI) | payer MEDICAID ==
[~2018-08-15] MED LIST changes: +TRAZ1TAB10 PO; -TRAZO50TA PO
--- NOTE | 2018-08-15 14:56 | REP ---
MRI BRACHIAL PLEXUS WITHOUT AND WITH IV CONTRAST: HISTORY: Right brachial plexus symptoms. Weakness. Anesthesia of the skin. COMPARISON: MRI cervical spine June 05, 2018. CONTRAST ENHANCEMENT DOSE: 20 mL of intravenous ProHance. TECHNIQUE: Axial coronal and sagittal imaging planes are utilized. T1- and T2-weighted sequences are included with and without fat saturation. MRI FINDINGS: There is no evidence of brachial plexus mass or impingement. Subclavian artery and vein are uncompressed and brachial plexus elements course adjacent to the vessels without deviation or displacement. T2-weighted scans show no evidence to suggest perineural edema or nerve root avulsion. The visualized cervicothoracic spinal cord is unremarkable. The right thyroid lobe is unremarkable. No cervical mass or adenopathy is seen. No supraclavicular mass or adenopathy is observed. There is however a soft tissue structure in the middle mediastinum on the right posterior and lateral to the trachea and esophagus just below the thoracic inlet. This is incompletely included in the imaging field of view but could be a mediastinal adenopathy or a prevertebral soft tissue lesion. The area in question measures 1.8 cm in AP dimension x 2.0 cm right to left x 3.9 cm craniocaudal although it is incompletely included in the imaging field of view. Consider contrast enhanced chest CT for more complete visualization of the mediastinum. No abnormal contrast enhancement is appreciated. IMPRESSION: No evidence of brachial plexus lesion. Question middle mediastinal mass or adenopathy just below the thoracic inlet on the right lateral to the upper esophagus. Consider CT study of the chest with IV contrast for further evaluation. Electronically Signed by Antione Pollock MD 08/15/2018 04:24 P
== END ==
LOC: M PLARAD 11:04
PROVIDERS: ATTEND Psychiatry & Neurology Neurology
DX: G54.0 Brachial plexus disorders (principal)

== ENCOUNTER → 2018-09-26 | Outpatient (CLI) | payer MEDICAID, SELFPAY | LOC: M OUTALCOH 07:42 | PROVIDERS: ATTEND Psychiatry & Neurology Psychiatry | DX: F12.20 Cannabis dependence, uncomplicated (principal) ==

== ENCOUNTER 2018-10-15 15:58 | Outpatient (RCR) | payer SELFPAY | END 2018-10-18 | LOC: M OUTALCOH 15:58 | PROVIDERS: ATTEND Psychiatry & Neurology Psychiatry | DX: F12.20 Cannabis dependence, uncomplicated (principal); Z72.0 Tobacco use ==

== ENCOUNTER 2018-11-13 10:00 | Outpatient (RCR) | payer MEDICAID, SELFPAY | END 2018-11-17 | LOC: M OUTALCOH 10:00 | PROVIDERS: ATTEND Psychiatry & Neurology Psychiatry | DX: F12.20 Cannabis dependence, uncomplicated (principal); Z72.0 Tobacco use ==

== ENCOUNTER 2019-05-02 21:02 | Emergency (ER) | payer MEDICAID ==
[~2019-05-02] VITALS: Ht 198.1 cm; Wt 179.6 kg
[2019-05-02 22:02] LABS: INFLUENZA A AMPLIFICATION NEGATIVE (NEGATIVE); INFLUENZA B AMPLIFICATION NEGATIVE (NEGATIVE)
[2019-05-02] MEDS ORDERED: BENZ200C70 PO (23:45)
[2019-05-02] MEDS ORDERED: VENTAER INH (23:45)
[2019-05-03 00:07] VITALS: BP 138/88
--- NOTE | 2019-05-03 14:25 | REP ---
REASON: Cough, dyspnea, fever. TWO-VIEW CHEST: COMPARISON: No priors. FINDINGS: The superior mediastinal structures are midline. The cardiac silhouette is unremarkable in size, shape, and position. The diaphragmatic surfaces of the lungs are regular, and the costophrenic angles are clear. The pulmonary piedra are clear. The imaged osseous structures are intact. IMPRESSION: There is no acute cardiopulmonary disease. Unreviewed
== END 2019-05-03 00:09 | disposition home or self-care (01) ==
LOC: M ED 21:02
DX: J06.9 Acute upper respiratory infection, unspecified (principal); R05 Cough; F17.290 Nicotine dependence, other tobacco product, uncomplicated; F12.20 Cannabis dependence, uncomplicated

== ENCOUNTER 2019-06-24 08:02 | Emergency (ER) | payer OTHER, MEDICAID ==
[~2019-06-24] VITALS: Ht 198.1 cm; Wt 179.4 kg
[~2019-06-24 08:02] MED LIST changes: +BENZ200C70 PO; +VENTAER INH
[2019-06-24 08:03] VITALS: BP 163/94
[2019-06-24] MEDS ORDERED: LIDOCAINE W/EPINEPHRINE 1% 20ML VIAL SC ONE (08:45)
== END 2019-06-24 08:55 | disposition left against medical advice (07) ==
LOC: M ED 08:02
DX: L02.415 Cutaneous abscess of right lower limb (principal); Z53.21 Procedure and treatment not carried out due to patient leaving prior to being seen by health care provider

== ENCOUNTER 2019-08-24 10:45 | Inpatient (IN) | payer MEDICAID, OTHER ==
[~2019-08-24] VITALS: Ht 195.6 cm; Wt 172.6 kg
[2019-08-24 11:42] LABS: HEMATOCRIT 40.4 % (42.0-52.0); MEAN CORPUSCULAR HEMOGLOBIN 29.3 pg (27.0-33.0); MEAN CORPUSCULAR HGB CONC 32.2 g/dl (32.0-36.5); MEAN CORPUSCULAR VOLUME 91.2 fl (80.0-96.0); PLATELET COUNT, AUTOMATED 293 10^3/uL (150-450); RED BLOOD COUNT 4.43 10^6/uL (4.30-6.10)
[2019-08-24 12:39] LABS: ALT/SGPT 35 U/L (12-78); BILIRUBIN,DIRECT 0.2 MG/DL (0.0-0.2); BILIRUBIN,TOTAL 0.6 MG/DL (0.2-1.0); BLOOD UREA NITROGEN 14 MG/DL (7-18); CARBON DIOXIDE LEVEL 28 MEQ/L (21-32); CHLORIDE LEVEL 106 MEQ/L (98-107); CREATININE FOR GFR 1.08 MG/DL (0.70-1.30); ETHYL ALCOHOL (ETHANOL) < 0.003 % (0.000-0.010); GLOMERULAR FILTRATION RATE > 60.0 (>60); GLUCOSE, FASTING 86 MG/DL (70-100); POTASSIUM SERUM 3.6 MEQ/L (3.5-5.1); SALICYLATE LEVEL < 1.7 MG/DL (5.0-30.0); SODIUM LEVEL 138 MEQ/L (136-145); TOTAL PROTEIN 7.6 GM/DL (6.4-8.2)
[2019-08-24 12:41] LABS: ACETAMINOPHEN LEVEL < 2.0 UG/ML (10.0-30.0)
[2019-08-24 13:47] LABS: AMPHETAMINES LEVEL URINE POSITIVE (NEGATIVE); BARBITURATES URINE NEGATIVE (NEGATIVE); BENZODIAZEPINES URINE NEGATIVE (NEGATIVE); CANNABINOIDS URINE POSITIVE (NEGATIVE); COCAINE METABOLITE URINE NEGATIVE (NEGATIVE); METHADONE URINE NEGATIVE (NEGATIVE); OPIATES URINE NEGATIVE (NEGATIVE); PHENCYCLIDINE URINE NEGATIVE (NEGATIVE)
[2019-08-24] MEDS ORDERED: VITACAP8 PO (14:27)
[2019-08-24] MEDS ORDERED: VITAD1000T PO (14:30)
[2019-08-24] MEDS ORDERED: MOM 30ML SUSPENSION UDC PO PRN (16:45)
[2019-08-24] MEDS ORDERED: ACETAMINOPHEN TAB 650MG DOSE (2X325MG) PO PRN (16:45)
[2019-08-24] MEDS ORDERED: MAALOX 30 ML SUSP *UDC PO PRN (16:45)
[2019-08-24] MEDS ORDERED: OLANZapine 5 MG TAB PO SCH (21:00)
[2019-08-25] MEDS: traZODone 50 MG TAB PO PRN (00:06)
[2019-08-25 00:36] VITALS: BP 137/90
[2019-08-25 07:06] VITALS: BP 122/86
[2019-08-25] MEDS: OLANZapine 5 MG TAB PO SCH ×2 (11:02→20:50)
[2019-08-25] MEDS: NEOSPORIN TOP OINT 15GM TOP SCH ×2 (13:35→20:50)
[2019-08-25 17:33] VITALS: BP 133/89
--- NOTE | 2019-08-25 18:47 | HPEPDOC ---
General Date of Admission Aug 24, 2019 at 16:35 Date of Service: Aug 25, 2019 Attending Physician: NYDIA PORTILLO MD Chief Complaint The patient is a 24-year-old male admitted with a reason for visit of Unspecified Psychotic Disorder. Source: Patient, RN/MD Exam Limitations: No limitations History of Present Illness 24 yo M with a history of schizophrenia, PSUD who presented in eric psychosis and is admitted to the [facility], with medicine consulted for H&P. On my evaluation, he has no physical complaints and is in florrid psychosis. Home Medications Scheduled Cholecalciferol (Vitamin D3) (Vitamin D3) 1,000 Unit Tablet, 1,000 UNITS PO DAILY, (Reported) TAKES IN WINTER FOR VITAMIN D DEFICIENCY. Vitamin B Complex (Vitamin B Complex) 1 Each Capsule, 1 CAP PO DAILY, (Reported) Allergies Coded Allergies: [place] (Verified Allergy, Intermediate, 05/02/19) Mouth gets itchy Past Medical History Medical History Schizophrenia depression anxiety Surgical History none Family History Significant Family History: No pertinent family hx Social History Alcohol: occationally Drugs: marijuana, other (amphetamines) Recent Travel/Sick Contacts: Denies: Recent travel, Recent sick contacts Psychosocial History: Anxiety, Decreased mood, Schizophrenia A-FIB/CHADSVASC A-FIB History Current/History of A-Fib/PAF?: No Current PO Anticoag Therapy: No Age/Risk Factor Scoring CHADSVASC: CHADSVASC Response (Comments) Value Age Risk Factor Age < 65 years old 0 Gender Risk Factor Male 0 Hx of CHF No 0 Hx of HTN No 0 Hx of Stroke/TIA/or VTE No 0 Hx of Diabetes No 0 Hx of Vascular Disease No 0 Total 0 Treatment Treatment ordered: NONE Reason Anticoagulant not given: Not indicated/[id number] Review of Systems Constitutional: Denies: Chills, Fever, Night Sweats Eyes: Denies: Pain, Vision change ENT: Denies: Head Aches, Ear Pain, Dysphagia, Sinus Congestion, Post Nasal Drip, Sore Throat, Epistaxis, Other Symptoms Skin: Denies: Rash, Lesions, Breakdown Pulmonary: Denies: Dyspnea, Cough Cardiovascular: Denies: Chest Pain, Palpitations, Orthopnea, Paroxysmal Noc. Dyspnea, Lt Headedness Gastrointestinal: Denies: Nausea, Vomiting, Abdominal Pain, Diarrhea Genitourinary: Denies: Dysuria, Frequency, Incontinence, Retention Hematologic: Denies: Bruising, Bleeding Excessively, Petecchia, Purpura, E nlarged Lymph Nodes, Other Hematologic Endocrine: Denies: Polydipsia, Polyphagia, Polyuria, Heat Intolerance, Cold Intolerance, Other Endocrine Sx Musculoskeletal: Denies: Neck Pain, Back Pain, Joint Pain, Muscle Pain, Spasms Neurological: Denies: Weakness, Numbness, Change in speech, Confusion Psych: Reports: Anxiety, Depression Physical Examination General Exam: Positive: Alert, Cooperative, No Acute Distress Eye Exam: Positive: PERRLA, Conjunctiva & lids normal, EOMI; Negative: Sclera icteric ENT Exam: Positive: Atraumatic, Mucous membr. moist/pink, Pharynx Normal Neck Exam: Positive: Supple, Other (thick); Negative: JVD, thyromegaly Chest Exam: Positive: Clear to auscultation, Normal air movement Heart Exam: Positive: Rate Normal, Regular Rhythm, Normal S1, Normal S2; Negative: Murmurs, Rubs Abdomen Exam: Positive: Normal bowel sounds, Soft, Other (obese); Negative: Tenderness, Hepatospenomegaly Extremity Exam: Positive: Normal pulses; Negative: Clubbing, Cyanosis, Edema Skin Exam: Positive: Nl turgor and temperature; Negative: Breakdown, Lesion Neuro Exam: Positive: Normal Gait, Normal Speech, Cranial Nerves 3-12 NL, Reflexes 2+ Psych Exam: Negative: Oriented x 3 (oriented to self ) Vital Signs Vital Signs Date Time Temp Pulse Resp B/P (MAP) Pulse Ox O2 Delivery O2 Flow Rate FiO2 08/25/19 17:33 98.3 90 16 133/89 (104) 08/25/19 07:06 95 Room Air Assessment/Plan 24 yo man with an extensive psychiatric history and PSUD who is admitted to the [facility] with eric psychosis in the setting of recent amphetamine and marijuana use. IMPRESSION AND PLAN: 1. Psychiatric symptoms. Plan per psychiatry. 2. Morbid obesity: complicates care. Will need to discuss treatment strategies and interventions with PCP as an outpatient. Internal medicine will sign off at this time. Plan / VTE VTE Prophylaxis Ordered?: No VTE Exclusion Mechanical Proph: Low Risk for VTE VTE Exclusion Pharmacological: At Low Risk for VTE NYDIA PORTILLO MD Aug 25, 2019 18:47
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
[2019-08-25] MEDS: OLANZapine ORAL DISINTEGRATING TAB 5MG PO PRN (20:50)
[2019-08-26 07:03] VITALS: BP 129/74
[2019-08-26] MEDS: MULTIVITAMINS/MINERALS THERAP 1 TAB PO SCH (08:28)
[2019-08-26] MEDS: OLANZapine 5 MG TAB PO SCH ×2 (08:28→21:20)
[2019-08-26] MEDS: NEOSPORIN TOP OINT 15GM TOP SCH ×2 (08:28→21:19)
--- NOTE | 2019-08-26 09:39 | MHIPNPDOC ---
[facility] Progress Note Progress Note DATE OF SERVICE: 08/26/19 HPI: Harpal is seen today for concerns regarding his bipolar disorder. He denies any auditory hallucinations. He visual hallucinations, even though he might not be able to see things all the time. He reports he feels or senses some things that are there. MEDICATIONS: He reports that the medications are doing well. MEDICAL HISTORY: He has a history of having waking dreams. Objective Behavior: Pleasant. Engaged. Patient is somewhat distorted and mildly grandiose. Mood: Euthymic. Elated. Appropriately reactive. Thought Form: Thought process is somewhat tangential. Assessment F31.62 Bipolar disorder, current episode manic, moderate Plan Continue current medications and observe as patient improves (zyprexa 5mg bid). Estimated length of stay will be another several days. Metabolic labs to be drawn tomorrow Vital Signs Vital Signs Date Time Temp Pulse Resp B/P (MAP) Pulse Ox O2 Delivery O2 Flow Rate FiO2 08/26/19 07:03 98.8 87 12 129/74 (92) Room Air 08/25/19 07:06 95 Current Medications Current Medications Medications (Trade) Dose Ordered Sig/Elinor Route PRN Reason Start Time Stop Time Status Last Admin Dose Admin Acetaminophen (Tylenol Tab) 650 mg Q6HP PRN PO HEADACHE or DISCOMFORT 08/24/19 16:45 Al Hydrox/Mg Hydrox/Simethicone (Mylanta) 30 ml Q4HP PRN PO HEARTBURN/INDIGESTION 08/24/19 16:45 Home Med (Med Rec Complete!) ASDIRECTED XX 08/24/19 14:30 08/24/19 14:31 DC Magnesium Hydroxide (Milk Of Magnesia) 30 ml DAILYPRN PRN PO CONSTIPATION 08/24/19 16:45 Multivitamins (Theragram-M) 1 tab DAILY PO 08/26/19 09:00 08/26/19 08:28 Neomycin/ Polymyxin/ Bacitracin (Neosporin) APPLY TO AFFECTED AREA... BID TOP 08/25/19 09:00 08/26/19 08:28 Olanzapine (ZyPREXA ZYDIS) 5 mg Q4HP PRN PO ANXIETY/AGITATION 08/24/19 16:45 08/25/19 20:50 Olanzapine (ZyPREXA) 5 mg BID PO 08/25/19 11:00 08/26/19 08:28 Olanzapine (ZyPREXA) 5 mg QHS PO 08/24/19 21:00 08/25/19 10:47 DC 08/25/19 01:27 Trazodone HCl (Desyrel) 50 mg QHSP PRN PO INSOMNIA 08/24/19 16:45 08/25/19 00:06 Allergies Coded Allergies: [place] (Verified Allergy, Intermediate, 05/02/19) Mouth gets itchy SHAYNA DE JESUS DO Aug 26, 2019 09:39
[2019-08-26 16:20] VITALS: BP 125/72
[2019-08-26] MEDS: OLANZapine ORAL DISINTEGRATING TAB 5MG PO PRN (16:58)
[2019-08-27 06:45] VITALS: BP 132/80
[2019-08-27 07:25] LABS: HEMOGLOBIN A1c 5.5 %
[2019-08-27 07:32] LABS: CHOLESTEROL RISK RATIO 4.032 (<5)
[2019-08-27] MEDS: MULTIVITAMINS/MINERALS THERAP 1 TAB PO SCH (08:28)
[2019-08-27] MEDS: NEOSPORIN TOP OINT 15GM TOP SCH ×2 (08:28→20:01)
[2019-08-27] MEDS: OLANZapine 5 MG TAB PO SCH ×2 (08:28→20:00)
--- NOTE | 2019-08-27 09:53 | MHIPNPDOC ---
[facility] Progress Note Progress Note DATE OF SERVICE: 08/27/19 HPI: Tre is today for for follow up and only talks about his cyst. Harpal denies having fever, and he notes that the cyst is not painful. He finds that he can get up during the day. He denies having any suicidal or homicidal thoughts. MEDICATIONS: He notes that hes doing well on the Zyprexa, that hes sleeping and having dreams. Objective Cognition: Pleasantly psychotic. Tangential poor judgement and insight. Hygiene fair. Speech pressured. Assessment F31.9 Bipolar disorder, unspecified Plan Talk about un-group restricting Kelley as he improves to determine if he has improved, however, the milieu is very acute Continue Zyprexa 5 mg with potential increase tomorrow if patient doesnt make significant improvements. Vital Signs Vital Signs Date Time Temp Pulse Resp B/P (MAP) Pulse Ox O2 Delivery O2 Flow Rate FiO2 08/27/19 06:45 98.0 79 18 132/80 (97) 08/26/19 07:03 Room Air 08/25/19 07:06 95 Laboratory Data 24H Labs Laboratory Tests 2 08/27/19 06:31: Estimated Mean Plasma Glucose 111H, Hemoglobin A1c 5.5, Triglycerides Level 85, Total Cholesterol 125, LDL Cholesterol 77, Non-HDL Cholesterol (LDL + VLDL) 94, Total HDL Cholesterol 31L, Cholesterol/HDL Ratio 4.032 Current Medications Current Medications Medications (Trade) Dose Ordered Sig/Elinor Route PRN Reason Start Time Stop Time Status Last Admin Dose Admin Acetaminophen (Tylenol Tab) 650 mg Q6HP PRN PO HEADACHE or DISCOMFORT 08/24/19 16:45 Al Hydrox/Mg Hydrox/Simethicone (Mylanta) 30 ml Q4HP PRN PO HEARTBURN/INDIGESTION 08/24/19 16:45 Home Med (Med Rec Complete!) ASDIRECTED XX 08/24/19 14:30 08/24/19 14:31 DC Magnesium Hydroxide (Milk Of Magnesia) 30 ml DAILYPRN PRN PO CONSTIPATION 08/24/19 16:45 Multivitamins (Theragram-M) 1 tab DAILY PO 08/26/19 09:00 08/27/19 08:28 Neomycin/ Polymyxin/ Bacitracin (Neosporin) APPLY TO AFFECTED AREA... BID TOP 08/25/19 09:00 08/27/19 08:28 Olanzapine (ZyPREXA ZYDIS) 5 mg Q4HP PRN PO ANXIETY/AGITATION 08/24/19 16:45 08/26/19 16:58 Olanzapine (ZyPREXA) 5 mg BID PO 08/25/19 11:00 08/27/19 08:28 Olanzapine (ZyPREXA) 5 mg QHS PO 08/24/19 21:00 08/25/19 10:47 DC 08/25/19 01:27 Trazodone HCl (Desyrel) 50 mg QHSP PRN PO INSOMNIA 08/24/19 16:45 08/25/19 00:06 Allergies Coded Allergies: [place] (Verified Allergy, Intermediate, 05/02/19) Mouth gets itchy SHAYNA DE JESUS DO Aug 27, 2019 09:53
[2019-08-27] MEDS: NICOTINE 21MG/24HR 1 EA TRANSDERMAL TD SCH (11:07)
--- NOTE | 2019-08-27 14:16 | IPNPDOC ---
Text Note Date of Service The patient was seen on 08/27/19. NOTE Subjective: Patient seen and examined in examination room. Complains of cyst on left lower buttock area. States he frequently gets these and they spontaneously resolve. Denies any other medical complaints. Objective: General: NAD HEENT: NC/AT, EOMI Lungs: CTA B/L Heart: +S1S2, RRR Abd: soft, NT, obese, +BS Ext: 1cm x 1cm lesion on lower right buttock area A/P: 24 yo male with small lesion on right lower buttock area #lesion - continue to monitor - check labs in am - will consider imaging if worsens - possible excision #psych - as per primary team Dispo: Will continue to follow patient and clinical progress. VS,Fishbone, I+O VS, Fishbone, I+O Vital Signs Date Time Temp Pulse Resp B/P (MAP) Pulse Ox O2 Delivery O2 Flow Rate FiO2 08/27/19 06:45 98.0 79 18 132/80 (97) 08/26/19 07:03 Room Air 08/25/19 07:06 95 BRIAN BRADSHAW MD Aug 27, 2019 14:16
[2019-08-27] MEDS: OLANZapine ORAL DISINTEGRATING TAB 5MG PO PRN (15:19)
[2019-08-27 16:16] VITALS: BP 116/56
[2019-08-28 07:23] VITALS: BP 130/60
[2019-08-28] MEDS: OLANZapine 5 MG TAB PO SCH ×2 (08:23→20:09)
[2019-08-28] MEDS: MULTIVITAMINS/MINERALS THERAP 1 TAB PO SCH (08:23)
[2019-08-28] MEDS: NEOSPORIN TOP OINT 15GM TOP SCH ×2 (08:23→20:13)
[2019-08-28] MEDS: NICOTINE 21MG/24HR 1 EA TRANSDERMAL TD SCH (08:24)
[2019-08-28 10:06] LABS: HEMATOCRIT 43.1 % (42.0-52.0); MEAN CORPUSCULAR HEMOGLOBIN 29.4 pg (27.0-33.0); MEAN CORPUSCULAR HGB CONC 32.5 g/dl (32.0-36.5); MEAN CORPUSCULAR VOLUME 90.4 fl (80.0-96.0); PLATELET COUNT, AUTOMATED 283 10^3/uL (150-450); RED BLOOD COUNT 4.77 10^6/uL (4.30-6.10); WHITE BLOOD COUNT 5.9 10^3/uL (4.0-10.0)
[2019-08-28] MEDS: OLANZapine ORAL DISINTEGRATING TAB 5MG PO PRN (13:16)
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
--- NOTE | 2019-08-28 13:56 | IPNPDOC ---
Text Note Date of Service The patient was seen on 08/28/19. NOTE Subjective: Patient seen and examined in examination room. States his cyst is feeling better. Feels it may have burst. Objective: General: NAD HEENT: NC/AT, EOMI Lungs: CTA B/L Heart: +S1S2, RRR Abd: soft, NT, obese, +BS Ext: 1cm x 1cm lesion on lower right buttock area, some clear liquid drainage A/P: 24 yo male with small lesion on right lower buttock area #lesion - continue to monitor - check labs in am - will consider imaging if worsens - possible excision #psych - as per primary team Dispo: Will continue to follow patient. VS,Fishbone, I+O VS, Fishbone, I+O Laboratory Tests 08/28/19 09:42 Vital Signs Date Time Temp Pulse Resp B/P (MAP) Pulse Ox O2 Delivery O2 Flow Rate FiO2 08/28/19 07:23 96.8 71 16 130/60 (83) 98 Room Air BRIAN BRADSHAW MD Aug 28, 2019 13:56
[2019-08-28 16:46] VITALS: BP 140/72
[2019-08-29 06:19] VITALS: BP 126/61
[2019-08-29] MEDS: MULTIVITAMINS/MINERALS THERAP 1 TAB PO SCH (09:23)
[2019-08-29] MEDS: NICOTINE 21MG/24HR 1 EA TRANSDERMAL TD SCH (09:23)
[2019-08-29] MEDS: OLANZapine 5 MG TAB PO SCH (09:23)
[2019-08-29] MEDS: NEOSPORIN TOP OINT 15GM TOP SCH ×2 (09:23→20:25)
--- NOTE | 2019-08-29 11:16 | MHIPNPDOC ---
[facility] Progress Note Progress Note DATE OF SERVICE: 08/29/19 HPI: Harpal presents today for a follow-up visit. Harpal mentions having vivid lucid dreams and has been sleeping more often, but denies suicidal thoughts and hallucinations. MEDICATIONS: He reports Zyprexa is treating him well. Objective Appearance: Well groomed. Well nourished. Behavior: Pleasant. Engaged. Cooperative with good eye contact. Affect: Full range. Appropriate to context. Mood: Euthymic. Appropriately reactive. Generally good. Speech: Normal volume. Normal rate. Motor: No gross motor abnormalities. Cognition: Alert, Attentive, and Oriented to person, place, time. Memory: No formal testing. No gross abnormalities of short or terminal gauger memory noted during interview. Thought Form: Linear and goal directed. Thought Content: No thoughts of self harm. No evidence of aggressive or homicidal ideation. No evidence of suicidal ideation. No evidence of delusions. Perception: No perceptual abnormalities noted. Judgement: intact as evidenced by decision making in the recent past. Insight: good insight into symptoms and treatment options. Assessment F31.74 Bipolar disorder, in full remission, most recent episode manic Plan Increase Zyprexa to 10 mg BID to ensure psychotic symptoms have been completely treated. Plan for discharge on Saturday if continues to improve. Vital Signs Vital Signs Date Time Temp Pulse Resp B/P (MAP) Pulse Ox O2 Delivery O2 Flow Rate FiO2 08/29/19 06:19 98.2 68 12 126/61 (82) 08/28/19 07:23 98 Room Air Current Medications Current Medications Medications (Trade) Dose Ordered Sig/Elinor Route PRN Reason Start Time Stop Time Status Last Admin Dose Admin Acetaminophen (Tylenol Tab) 650 mg Q6HP PRN PO HEADACHE or DISCOMFORT 08/24/19 16:45 Al Hydrox/Mg Hydrox/Simethicone (Mylanta) 30 ml Q4HP PRN PO HEARTBURN/INDIGESTION 08/24/19 16:45 Home Med (Med Rec Complete!) ASDIRECTED XX 08/24/19 14:30 08/24/19 14:31 DC Magnesium Hydroxide (Milk Of Magnesia) 30 ml DAILYPRN PRN PO CONSTIPATION 08/24/19 16:45 Multivitamins (Theragram-M) 1 tab DAILY PO 08/26/19 09:00 08/29/19 09:23 Neomycin/ Polymyxin/ Bacitracin (Neosporin) APPLY TO AFFECTED AREA... BID TOP 08/25/19 09:00 08/29/19 09:23 Nicotine (Nicoderm Cq 21mg) 1 patch DAILY TD 08/27/19 09:00 08/29/19 09:23 Olanzapine (ZyPREXA ZYDIS) 5 mg Q4HP PRN PO ANXIETY/AGITATION 08/24/19 16:45 08/28/19 13:16 Olanzapine (ZyPREXA) 5 mg BID PO 08/25/19 11:00 08/29/19 09:23 Olanzapine (ZyPREXA) 5 mg QHS PO 08/24/19 21:00 08/25/19 10:47 DC 08/25/19 01:27 Trazodone HCl (Desyrel) 50 mg QHSP PRN PO INSOMNIA 08/24/19 16:45 08/25/19 00:06 Allergies Coded Allergies: [place] (Verified Allergy, Intermediate, 05/02/19) Mouth gets itchy SHAYNA DE JESUS DO Aug 29, 2019 11:16
[2019-08-29] MEDS: OLANZapine ORAL DISINTEGRATING TAB 5MG PO PRN (14:14)
[2019-08-29 16:36] VITALS: BP 145/81
[2019-08-29] MEDS: OLANZapine 10 MG TAB PO SCH (20:24)
[2019-08-30 06:31] VITALS: BP 132/78
[2019-08-30] MEDS: NICOTINE 21MG/24HR 1 EA TRANSDERMAL TD SCH (08:06)
[2019-08-30] MEDS: NEOSPORIN TOP OINT 15GM TOP SCH ×2 (08:07→20:09)
[2019-08-30] MEDS: MULTIVITAMINS/MINERALS THERAP 1 TAB PO SCH (08:07)
[2019-08-30] MEDS: OLANZapine 10 MG TAB PO SCH (08:07)
[2019-08-30 16:39] VITALS: BP 135/68
[2019-08-30] MEDS: OLANZapine 5 MG TAB PO SCH (20:09)
[2019-08-30] MEDS: traZODone 50 MG TAB PO PRN (20:09)
[2019-08-30] MEDS: OLANZapine ORAL DISINTEGRATING TAB 5MG PO PRN (21:52)
[2019-08-31 06:58] VITALS: BP 130/73
[2019-08-31] MEDS: NICOTINE 21MG/24HR 1 EA TRANSDERMAL TD SCH (08:08)
[2019-08-31] MEDS: MULTIVITAMINS/MINERALS THERAP 1 TAB PO SCH (08:08)
[2019-08-31] MEDS: OLANZapine 5 MG TAB PO SCH (08:08)
[2019-08-31] MEDS: NEOSPORIN TOP OINT 15GM TOP SCH (08:10)
--- NOTE | 2019-08-31 09:29 | MHDSPDOC ---
[facility] Discharge Summary Discharge Summary DATE OF ADMISSION: Aug 24, 2019 at 16:35 DATE OF DISCHARGE:Aug 31, 2019 at 11:00 DISCHARGE DIAGNOSES: Bipolar disorder, most recent episode manic REASON FOR ADMISSION: 24-year-old man presents for psychosis related to bipolar disorder CONSULTANTS INVOLVED:[ None (basic hospitalist screening)] TREATMENT AND PROGRESS ON THE UNIT : Medication changes: initially start on Zyprexa 5 mg increase to 5 mg BID with positive effects, Zyprexa was used however, it was not able to be prescribed as dissolvable tablets as an outpatient his insurance would cover it. Attempted a higher dose of Zyprexa 10 mg but left patient over sedated thus reduce back to 5 mg, with positive effects and his mood becoming more level and stable. His psychosis resolved well Behavior on unit: became more amenable in more engaged on the unit as his Zyprexa to cold Treatment attendance: attended more as she improved Notable issues on presentation: none State on discharge: [improved] DISCHARGE ASSESSMENT: The patient a 24 year old man, with likely bipolar disorder, presented to [facility], where they treated with appropriate antipsychotic mood stabilizing agents and resolve well. Legal status considerations: The patient at the time of discharge did not meet criteria for involuntary admission/extension due to having a [normal] mental status exam, [fair] insight into the situation, They are engaged in the discharge process, as well as being friendly and amenable in behavioral control and havent been engaging in any observed concerning behavior or ideation recently. They decline voluntary extension/admission at this time and must be discharged in good bia, as Im unable to make a case for holding the patient against their will. They may have historical risk factors of admissions and other interactions with psychiatry however, those are not modifiable from a clinical perspective. The patient will need to be discharged in good bia. MENTAL STATUS EXAMINATION ON DISCHARGE: [General: Well dressed with good hygiene Speech: Spontaneous and fluid Thought processes: Linear and logical Thought content: Future orientated Abstract reasoning, and computation: Intact Description of associations: Intact Description of abnormal or psychotic thoughts:Denies any suicidal or homicidal ideation. Denies any auditory or visual hallucinations. Does not appear to be responding to internal stimuli. Does not appear to be endorsing any bizarre or paranoid ideation. Judgment: fair Insight: fair Orientation: Alert and orientated 3 Recent and remote memory: Intact Attention span and concentration: Intact Fund of knowledge: Adequate Mood: "okay" Affect: Euthymic with a full range] PLAN/FOLLOWUP ARRANGEMENTS: Follow up appointments made (PCP and MH in 5 days of D/C date) and safety plan completed. Safety Planning aspects completed prior to discharge [Medication supplies limited to 7 days with 4 refills to prevent accumulation to OD] [RN reviewed crisis hotline information and other aspects to empower patient to access care in interim before next appointment.] The amount of time spent in the coordination of care for this patient was approximately 30 minutes. Vital Signs/I&Os Vital Signs Date Time Temp Pulse Resp B/P (MAP) Pulse Ox O2 Delivery O2 Flow Rate FiO2 08/31/19 06:58 98.7 84 14 130/73 (92) Room Air 08/28/19 07:23 98 Medications Scheduled Cholecalciferol (Vitamin D3) (Vitamin D3) 1,000 Unit Tablet, 1,000 UNITS PO DAILY, (Reported) TAKES IN WINTER FOR VITAMIN D DEFICIENCY. Nicotine (Nicotine Patch) 21 Mg Patch.td24, 1 PATCH TD DAILY for tobacco for 30 Days, #30 Olanzapine (Olanzapine) 5 Mg Tablet, 5 MG PO BID for mood for 7 Days, #14 Vitamin B Complex (Vitamin B Complex) 1 Each Capsule, 1 CAP PO DAILY, (Reported) Allergies Coded Allergies: [place] (Verified Allergy, Intermediate, 05/02/19) Mouth gets itchy SHAYNA DE JESUS DO Aug 31, 2019 09:29
[2019-08-31] MEDS ORDERED: OLAN5TAB PO (09:31)
[2019-08-31] MEDS ORDERED: NICO21PAT TD (09:31)
== END 2019-08-31 11:00 | disposition home or self-care (01) | DRG 753 ==
LOC: M ED 10:45 → M ED INP 16:35 → M PSY 22:45
PROVIDERS: ADMIT Psychiatry & Neurology Addiction Medicine; ATTEND Psychiatry & Neurology Addiction Medicine
DX: F31.2 Bipolar disorder, current episode manic severe with psychotic features (principal); E66.01 Morbid (severe) obesity due to excess calories; Z91.010 Allergy to peanuts; Z79.899 Other long term (current) drug therapy; L98.9 Disorder of the skin and subcutaneous tissue, unspecified

== ENCOUNTER → 2019-09-29 | Emergency (ER) | payer MEDICAID ==
[~2019-09-29] MED LIST changes: +BENZ0.5T23; +D31000TA2; +D31000TA2 PO; +NICO21PAT TD; +NICO2GUM PO; +NICO2GUM47 PO; +NICOINH; +OLAN10TA2 PO; +OLAN5TAB PO; +OLAN5ZYD; +OMEP-218 PO; +TRAZ-252 PO; +VITACAP8 PO
== END | disposition left against medical advice (07) ==
LOC: M ED 13:11
DX: Z53.21 Procedure and treatment not carried out due to patient leaving prior to being seen by health care provider (principal)

== ENCOUNTER 2019-10-28 16:35 | Inpatient (IN) | payer MEDICAID ==
[~2019-10-28] VITALS: Ht 195.6 cm; Wt 164.2 kg
[~2019-10-28 16:35] MED LIST changes: -BENZ0.5T23; -D31000TA2; -NICO2GUM PO; -NICO2GUM47 PO; -NICOINH; -OLAN10TA2 PO; -OLAN5ZYD; -OMEP-218 PO; -TRAZ-252 PO
[2019-10-28 17:43] LABS: HEMATOCRIT 44.1 % (42.0-52.0); HEMOGLOBIN 14.1 g/dl (13.5-17.5); MEAN CORPUSCULAR VOLUME 90.6 fl (80.0-96.0); PLATELET COUNT, AUTOMATED 283 10^3/uL (150-450); RED BLOOD COUNT 4.87 10^6/uL (4.30-6.10)
[2019-10-28 18:04] LABS: AMPHETAMINES LEVEL URINE NEGATIVE (NEGATIVE); BARBITURATES URINE NEGATIVE (NEGATIVE); BENZODIAZEPINES URINE NEGATIVE (NEGATIVE); CANNABINOIDS URINE POSITIVE (NEGATIVE); COCAINE METABOLITE URINE NEGATIVE (NEGATIVE); METHADONE URINE NEGATIVE (NEGATIVE); OPIATES URINE NEGATIVE (NEGATIVE); PHENCYCLIDINE URINE NEGATIVE (NEGATIVE)
[2019-10-28 18:33] LABS: ACETAMINOPHEN LEVEL < 2.0 UG/ML (10.0-30.0); ALBUMIN 3.2 GM/DL (3.2-5.2); ALT/SGPT 353 U/L (12-78); BILIRUBIN,DIRECT 0.3 MG/DL (0.0-0.2); BILIRUBIN,TOTAL 0.5 MG/DL (0.2-1.0); BLOOD UREA NITROGEN 7 MG/DL (7-18); CALCIUM LEVEL 8.2 MG/DL (8.5-10.1); CARBON DIOXIDE LEVEL 27 MEQ/L (21-32); CHLORIDE LEVEL 110 MEQ/L (98-107); CREATININE FOR GFR 1.03 MG/DL (0.70-1.30); ETHYL ALCOHOL (ETHANOL) < 0.003 % (0.000-0.010); GLOMERULAR FILTRATION RATE > 60.0 (>60); GLUCOSE, FASTING 85 MG/DL (70-100); POTASSIUM SERUM 3.6 MEQ/L (3.5-5.1); SALICYLATE LEVEL < 1.7 MG/DL (5.0-30.0); SODIUM LEVEL 142 MEQ/L (136-145); THYROID STIMULATING HORMONE 0.962 uIU/ML (0.358-3.740); TOTAL PROTEIN 6.3 GM/DL (6.4-8.2)
[2019-10-28] MEDS ORDERED: OLAN10TA2 PO (21:36)
[2019-10-28] MEDS: OLANZapine ORAL DISINTEGRATING TAB 5MG PO ONE ×2 (22:30→22:53)
[2019-10-28] MEDS ORDERED: MAALOX 30 ML SUSP *UDC PO PRN (22:30)
[2019-10-28] MEDS ORDERED: ACETAMINOPHEN TAB 650MG DOSE (2X325MG) PO PRN (22:30)
[2019-10-28] MEDS ORDERED: MOM 30ML SUSPENSION UDC PO PRN (22:30)
[2019-10-29 03:03] VITALS: BP 150/70
[2019-10-29] MEDS ORDERED: INFLUENZA QUADRIVALENT PF VACCINE 0.5ML SYRINGE IM ONE (06:00)
[2019-10-29 06:35] VITALS: BP 120/57
[2019-10-29] MEDS: OMEPRAZOLE 20 MG CAP PO SCH (08:39)
[2019-10-29] MEDS ORDERED: OLANZapine ORAL DISINTEGRATING TAB 5MG PO ONE (10:15)
[2019-10-29] MEDS: NICOTINE POLACRILEX 2 MG GUM PO PRN ×3 (10:23→20:26)
--- NOTE | 2019-10-29 13:52 | HPEPDOC ---
General Date of Admission Oct 28, 2019 at 22:12 Date of Service: Oct 29, 2019 Chief Complaint The patient is a 24-year-old male admitted with a reason for visit of Unspecified Psychotic Disorder. Source: Patient History of Present Illness 24 year old male with PMH of schizophrenia, anxiety, depression was admitted to [facility] for unspecified psychosis. He was behaving bizziarely for a month, wandering about harassing people . He has expressed Suicidal and Homicidal ideas to mom , grand mom and uncle. Yesterday he was behaving very abnormally threatening family members so police was called and he was brought to the hospital. I am seeing the patient for medical History and physical. At present he denied any complaints. Home Medications Scheduled PRN Olanzapine (Olanzapine) 10 Mg Tablet, 5 MG PO BID PRN for ANXIETY/AGITATION, (Reported) Allergies Coded Allergies: Catherine (Verified Allergy, Intermediate, 05/02/19) Mouth gets itchy Past Medical History Medical History Schizophrenia depression anxiety HX VITAMIN B12 DEFICIENCY (POOR DIETARY INTAKE) ALLERGIC RHINITIS In CHILDHOOD CHILDHOOD ASTHMA MORBID OBESITY GERD Surgical History ADNOIDS REMOVAL TUBES IN EARS BILATERAL TRANS-SCROTAL ORCHIDOPEXY X2 A 2010 Family History FATHER: ALIVE, GENETIC DISORDER (ALSTROM SYNDROME), KIDNEY STONES MOTHER: ALIVE, FIBROMYALGIA DIABETES PATERNAL AND MATERNAL GRANDMOTHER. Social History * Smoker: non-smoker Alcohol: occationally Drugs: marijuana, other (amphetamines) A-FIB/CHADSVASC A-FIB History Current/History of A-Fib/PAF?: No Review of Systems Constitutional: Denies: Chills, Fever, Night Sweats Eyes: Denies: Pain, Vision change ENT: Denies: Head Aches, Ear Pain, Dysphagia Skin: Denies: Rash, Lesions, Breakdown Pulmonary: Denies: Dyspnea, Cough Cardiovascular: Denies: Chest Pain, Palpitations, Orthopnea, Paroxysmal Noc. Dyspnea, Lt Headedness Gastrointestinal: Denies: Nausea, Vomiting, Abdominal Pain, Diarrhea Genitourinary: Denies: Dysuria, Frequency, Incontinence, Retention Musculoskeletal: Denies: Neck Pain, Back Pain, Joint Pain, Muscle Pain, Spasms Neurological: Denies: Weakness, Numbness, Change in speech, Confusion Physical Examination General Exam: Positive: Alert, Cooperative, No Acute Distress Eye Exam: Positive: PERRLA, Conjunctiva & lids normal, EOMI; Negative: Sclera icteric ENT Exam: Positive: Atraumatic, Mucous membr. moist/pink, Pharynx Normal Neck Exam: Positive: Supple; Negative: JVD, thyromegaly Chest Exam: Positive: Clear to auscultation, Normal air movement Heart Exam: Positive: Rate Normal, Regular Rhythm, Normal S1, Normal S2; Negative: Murmurs, Rubs Abdomen Exam: Positive: Normal bowel sounds, Soft; Negative: Tenderness, Hepatospenomegaly Extremity Exam: Positive: Normal pulses; Negative: Clubbing, Cyanosis, Edema Vital Signs Vital Signs Date Time Temp Pulse Resp B/P (MAP) Pulse Ox O2 Delivery O2 Flow Rate FiO2 10/29/19 06:35 98.1 75 14 120/57 (78) 96 Room Air Laboratory Data Labs 24H Laboratory Tests 2 10/28/19 17:27: Nucleated Red Blood Cells % (auto) 0.0, Anion Gap 5L, Glomerular Filtration Rate > 60.0, Calcium Level 8.2L, Total Bilirubin 0.5, Direct Bilirubin 0.3H, A spartate Amino Transf (AST/SGOT) 315H, Alanine Aminotransferase (ALT/SGPT) 353H, Alkaline Phosphatase 72, Total Protein 6.3L, Albumin 3.2, Albumin/Globulin Ratio 1.0, Thyroid Stimulating Hormone (TSH) 0.962, Salicylates Level < 1.7L, Urine Opiates Screen NEGATIVE, Urine Methadone Screen NEGATIVE, Acetaminophen Level < 2.0L, Urine Barbiturates Screen NEGATIVE, Urine Phencyclidine Screen NEGATIVE, U rine Amphetamines Screen NEGATIVE, Urine Benzodiazepines Screen NEGATIVE, Urine Cocaine Metabolite Screen NEGATIVE, Urine Cannabinoids Screen POSITIVEH, Ethyl Alcohol Level < 0.003 CBC/BMP Laboratory Tests 10/28/19 17:27 Assessment/Plan 24 year old male with PMH of schizophrenia, anxiety, depression was admitted to [facility] for unspecified psychosis. He was behaving bizziarely for a month, wandering about harassing people . He has expressed Suicidal and Homicidal ideas to mom , grand mom and uncle. Yesterday he was behaving very abnormally threatening family members so police was called and he was brought to the hospital. I am seeing the patient for medical History and physical. At present he denied any complaints. Psychosis As per psychiatry No active medical problems will sign off. Plan / VTE VTE Prophylaxis Ordered?: No KIRA PAUL MD Oct 29, 2019 13:00
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
[2019-10-29 16:19] VITALS: BP 146/88
[2019-10-29] MEDS: OLANZapine 5 MG TAB PO SCH (20:26)
[2019-10-30 06:49] VITALS: BP 102/72
--- NOTE | 2019-10-30 08:28 | MHIPNPDOC ---
[facility] Progress Note Progress Note DATE OF SERVICE: 10/30/19 HISTORY:Day 2 of admission, patient was a 9.41 to [facility] Patient is a Obese 24 -year-old Single, Unemployed, Undomiciled , male, who was brought in on a .41 after his mother initiated a transport to the Emergency Department due to his threats of suicidality and homicidality. Patient reports that this is his 4th admission to psychiatry with PMH of schizophrenia, bipolar, anxiety, depress ion, on this occasion he was admitted to [facility] for unspecified psychosis. He has been behaving bizarrely harassing people for approximately one month, HIs mother reports that he had Suicidal and Homicidal threats to mother , his grandmother and uncle. VITAL SIGNS: See below. NEW TEST RESULTS: . CURRENT MEDICATIONS: See below. MENTAL STATUS EXAMINATION: Patient is a -year old male, who is . Speech: Is . Language skills are . Thought processes including: . Thought content: . Abstract reasoning, and computation: . Description of associations: . Description of abnormal or psychotic thoughts: . Judgment: . Insight: [very limited, good, fair. poor]. Orientation: . Recent and remote memory: . Attention span and concentration: . Language: . Fund of knowledge: . Mood: . Affect: . DIAGNOSES: 1. Bipolar I Disorder per history 2. Stimulant Use Disorder 3. Stimulant Induced Psychosis ASSESSMENT: MANAGEMENT PLAN: Continue patient on medications, restrict to unit, TIME SPENT: minutes. Vital Signs Vital Signs Date Time Temp Pulse Resp B/P (MAP) Pulse Ox O2 Delivery O2 Flow Rate FiO2 10/30/19 06:49 97.2 72 14 102/72 (82) 99 Room Air Current Medications Current Medications Medications (Trade) Dose Ordered Sig/Elinor Route PRN Reason Start Time Stop Time Status Last Admin Dose Admin Acetaminophen (Tylenol Tab) 650 mg Q6HP PRN PO HEADACHE or DISCOMFORT 10/28/19 22:30 Al Hydrox/Mg Hydrox/Simethicone (Mylanta) 30 ml Q4HP PRN PO HEARTBURN/INDIGESTION 10/28/19 22:30 Home Med (Med Rec Complete!) ASDIRECTED XX 10/28/19 21:45 10/28/19 21:38 DC Magnesium Hydroxide (Milk Of Magnesia) 30 ml DAILYPRN PRN PO CONSTIPATION 10/28/19 22:30 Nicotine (Nicorette) 2 mg Q4HP PRN PO NICOTINE WITHDRAWAL 10/29/19 10:30 10/29/19 20:26 Olanzapine (ZyPREXA) 5 mg BID PO 10/29/19 21:00 10/29/19 20:26 Omeprazole (PriLOSEC) 40 mg DAILY PO 10/29/19 09:00 Trazodone HCl (Desyrel) 50 mg QHSP PRN PO INSOMNIA 10/28/19 22:30 Allergies Coded Allergies: [place] (Verified Allergy, Intermediate, 05/02/19) Mouth gets itchy DOMENICA MUÑOZ NP Oct 30, 2019 08:28 LAY JEROME MD Oct 31, 2019 13:31
[2019-10-30] MEDS: OMEPRAZOLE 20 MG CAP PO SCH (08:55)
[2019-10-30] MEDS: OLANZapine 5 MG TAB PO SCH ×3 (08:55→20:44)
[2019-10-30] MEDS: NICOTINE POLACRILEX 2 MG GUM PO PRN ×3 (08:56→19:23)
--- NOTE | 2019-10-30 14:04 | MHIPNPDOC ---
[facility] Progress Note Progress Note DATE OF SERVICE: 10/30/19 HISTORY: This is day of patient's admission. Patient is a Obese 24 -year-old Single, Unemployed, Undomiciled , male, who was brought in on a 9.41 after his mother initiated a transport to the Emergency Department due to his threats of suicidality and homicidality. Patient reports that this is his 4th admission to psychiatry with PMH of schizophrenia, bipolar, anxiety, depression, on this occasion he was admitted to [facility] for unspecified psychosis. He has been behaving bizarrely harassing people for approximately one month, His mother reports that he had Suicidal and Homicidal threats to mother , his grandmother and uncle. VITAL SIGNS: See below. NEW TEST RESULTS: . CURRENT MEDICATIONS: See below. MENTAL STATUS EXAMINATION: Patient is a 24-year old Single, Unemployed, Domiciled male, who is observed with no suicidal or homicidal ideation, planning or intent. He denies depression and anxiety and not observed with any symptoms of such. Calm and cooperative in the interview, he is dressed appropriately (hospital scrubs) hygiene and grooming is good, eye contact is good. No psychomotor agitation or retardation noted. Speech: Is normal rate, tone and volume Language skills are good Thought processes including: linear and goal oriented Thought content: denies depression, anxiety, agitation, hallucinations, paranoid, cosme auditory/visual hallucinations. Abstract reasoning, and computation: fair. Description of associations: none noted/patient denies. Description of abnormal or psychotic thoughts: none noted/patient denies. Judgment: fair Insight: fair Orientation: alert and oriented Recent and remote memory: intact Attention span and concentration: good Language: good Fund of knowledge: average Mood: reports euthymic "good" Affect: reactive DIAGNOSES: 1. Bipolar I Disorder per history 2. Stimulant Use Disorder 3. Stimulant Induced Psychosis ASSESSMENT: Patient is calm and cooperative in the interview. Mildly grandiose, mildly religiously preoccupied but no symptoms that are strongly relating to Bipolar exacerbation. MANAGEMENT PLAN: Continue medications as ordered, continue all therapeutic modalities. TIME SPENT: 20 minutes. Vital Signs Vital Signs Date Time Temp Pulse Resp B/P (MAP) Pulse Ox O2 Delivery O2 Flow Rate FiO2 10/30/19 06:49 97.2 72 14 102/72 (82) 99 Room Air Current Medications Current Medications Medications (Trade) Dose Ordered Sig/Elinor Route PRN Reason Start Time Stop Time Status Last Admin Dose Admin Acetaminophen (Tylenol Tab) 650 mg Q6HP PRN PO HEADACHE or DISCOMFORT 10/28/19 22:30 Al Hydrox/Mg Hydrox/Simethicone (Mylanta) 30 ml Q4HP PRN PO HEARTBURN/INDIGESTION 10/28/19 22:30 Home Med (Med Rec Complete!) ASDIRECTED XX 10/28/19 21:45 10/28/19 21:38 DC Magnesium Hydroxide (Milk Of Magnesia) 30 ml DAILYPRN PRN PO CONSTIPATION 10/28/19 22:30 Nicotine (Nicorette) 2 mg Q4HP PRN PO NICOTINE WITHDRAWAL 10/29/19 10:30 10/30/19 13:07 Olanzapine (ZyPREXA) 5 mg BID PO 10/29/19 21:00 10/29/19 20:26 Omeprazole (PriLOSEC) 40 mg DAILY PO 10/29/19 09:00 Trazodone HCl (Desyrel) 50 mg QHSP PRN PO INSOMNIA 10/28/19 22:30 Allergies Coded Allergies: [place] (Verified Allergy, Intermediate, 05/02/19) Mouth gets itchy DOMENICA MUÑOZ [employer] Oct 30, 2019 14:04
[2019-10-30 18:04] VITALS: BP 138/78
[2019-10-30] MEDS: traZODone 50 MG TAB PO PRN (20:44)
[2019-10-31 06:43] VITALS: BP 107/52
[2019-10-31] MEDS: OMEPRAZOLE 20 MG CAP PO SCH (08:51)
[2019-10-31] MEDS: OLANZapine 5 MG TAB PO SCH (08:51)
[2019-10-31] MEDS: NICOTINE POLACRILEX 2 MG GUM PO PRN ×3 (08:53→20:22)
--- NOTE | 2019-10-31 15:50 | MHIPNPDOC ---
[facility] Progress Note Progress Note DATE OF SERVICE: 10/31/19 HISTORY: This is day of patient's admission. Patient is a Obese 24 -year-old Single, Unemployed, Undomiciled , male, who was brought in on a 9.41 after his mother initiated a transport to the Emergency Department due to his threats of suicidality and homicidality. Patient reports that this is his 4th admission to psychiatry with PMH of schizophrenia, bipolar, anxiety, depression, on this occasion he was admitted to [facility] for unspecified psychosis. He has been behaving bizarrely harassing people for approximately one month, His mother reports that he had Suicidal and Homicidal threats to mother , his grandmother and uncle. VITAL SIGNS: See below. NEW TEST RESULTS: See below CURRENT MEDICATIONS: See below. MENTAL STATUS EXAMINATION: 24 year old male with h/o Bipolar disorder. He is dressed in hospital clthes, he is pleasant and cooperative, has good eye contact but has bizarre delusions and labile mood and affect Speech: Is normal rate, tone and volume Language skills are good Thought processes including: circumstantial Thought content: denies depression, anxiety, agitation, hallucinations, paranoid, cosme auditory/visual hallucinations. Abstract reasoning, and computation: fair. Description of associations: none noted/patient denies. Description of abnormal or psychotic thoughts: Patient denies paranoid thoughts, denies bizarre thoughts, denies SI/HI but he says recently he was playing connect 4 and all of a sudden the "cross became a real cross and it was not only me in the room, there was someone else and we both saw it." "I feel that a lot of people are against me" Judgment: poor Insight: poor Orientation: alert and oriented Recent and remote memory: intact Attention span and concentration: good Language: good Fund of knowledge: average Mood: reports euthymic "good" Affect: reactive DIAGNOSES: 1. Bipolar I Disorder per history 2. Stimulant Use Disorder 3. Stimulant Induced Psychosis ASSESSMENT: He feels that Zyprexa gives "electricity to the air, is almost like the name that starts with a Zzzzzz, like bzzzz". he is psychotic, he is tearful at time,s he is pleasant and cooperative. I have encouraged him to take his medications, I told hi Zyprexa is good for him. He continues to talk about Cosmic energy. MANAGEMENT PLAN: Continue medications as ordered, continue all therapeutic modalities. Vital Signs Vital Signs Date Time Temp Pulse Resp B/P (MAP) Pulse Ox O2 Delivery O2 Flow Rate FiO2 10/31/19 06:43 98.1 64 18 107/52 (70) 100 Room Air Current Medications Current Medications Medications (Trade) Dose Ordered Sig/Elinor Route PRN Reason Start Time Stop Time Status Last Admin Dose Admin Acetaminophen (Tylenol Tab) 650 mg Q6HP PRN PO HEADACHE or DISCOMFORT 10/28/19 22:30 Al Hydrox/Mg Hydrox/Simethicone (Mylanta) 30 ml Q4HP PRN PO HEARTBURN/INDIGESTION 10/28/19 22:30 Home Med (Med Rec Complete!) ASDIRECTED XX 10/28/19 21:45 10/28/19 21:38 DC Magnesium Hydroxide (Milk Of Magnesia) 30 ml DAILYPRN PRN PO CONSTIPATION 10/28/19 22:30 Nicotine (Nicorette) 2 mg Q4HP PRN PO NICOTINE WITHDRAWAL 10/29/19 10:30 10/31/19 13:26 Olanzapine (ZyPREXA) 5 mg BID PO 10/29/19 21:00 10/30/19 20:44 Omeprazole (PriLOSEC) 40 mg DAILY PO 10/29/19 09:00 Trazodone HCl (Desyrel) 50 mg QHSP PRN PO INSOMNIA 10/28/19 22:30 10/30/19 20:44 Allergies Coded Allergies: [place] (Verified Allergy, Intermediate, 05/02/19) Mouth gets itchy LAY JEROME MD Oct 31, 2019 13:42
[2019-10-31 18:00] VITALS: BP 157/75
[2019-10-31] MEDS: traZODone 50 MG TAB PO PRN (20:21)
[2019-10-31] MEDS: OLANZapine 10 MG TAB PO SCH (20:21)
[2019-11-01 06:23] VITALS: BP 161/79
[2019-11-01] MEDS: OMEPRAZOLE 20 MG CAP PO SCH (09:00)
[2019-11-01] MEDS: NICOTINE POLACRILEX 2 MG GUM PO PRN ×3 (09:05→18:13)
--- NOTE | 2019-11-01 15:15 | MHIPNPDOC ---
[facility] Progress Note Progress Note DATE OF SERVICE: 11/01/19 HISTORY: This is day of patient's admission. Patient is a Obese 24 -year-old Single, Unemployed, Undomiciled , male, who was brought in on a 9.41 after his mother initiated a transport to the Emergency Department due to his threats of suicidality and homicidality. Patient reports that this is his 4th admission to psychiatry with PMH of schizophrenia, bipolar, anxiety, depression, on this occasion he was admitted to [facility] for unspecified psychosis. He has been behaving bizarrely harassing people for approximately one month, His mother reports that he had Suicidal and Homicidal threats to mother , his grandmother and uncle. VITAL SIGNS: See below. NEW TEST RESULTS: See below CURRENT MEDICATIONS: See below. MENTAL STATUS EXAMINATION: 24 year old male with h/o Bipolar disorder. He is dressed in hospital clothes, he is pleasant and cooperative, has good eye contact but has bizarre delusions and labile mood and affect Speech: Is normal rate, tone and volume Language skills are good Thought processes including: circumstantial Thought content: He denies being depressed or anxious, he says he is not hyper sensitive ( but he cries very easily), he denies SI/HI but he has bizarre and grandiose delusions Description of abnormal or psychotic thoughts: bizarre thoughts, grandiose thoughts "I can fix the world from my room, just using my mind because I have a very powerful mind". Denies TAV hallucinations Judgment: poor Insight: poor Orientation: alert and oriented Recent and remote memory: intact Attention span and concentration: good Language: good Fund of knowledge: average Mood: labile Affect: congruent with mood, labile DIAGNOSES: 1. Bipolar I Disorder per history 2. Stimulant Use Disorder 3. Stimulant Induced Psychosis ASSESSMENT: The patient took his Zyprexa 10 mgs PO last night. He is still delusional and he is very sensitive, he becomes tearful very easily. He is pleasant and cooperative, very polite, not aggressive. MANAGEMENT PLAN: Continue medications as ordered, continue all therapeutic modalities. Vital Signs Vital Signs Date Time Temp Pulse Resp B/P (MAP) Pulse Ox O2 Delivery O2 Flow Rate FiO2 11/01/19 06:23 98.7 75 16 161/79 (106) 95 Room Air Current Medications Current Medications Medications (Trade) Dose Ordered Sig/Elinor Route PRN Reason Start Time Stop Time Status Last Admin Dose Admin Acetaminophen (Tylenol Tab) 650 mg Q6HP PRN PO HEADACHE or DISCOMFORT 10/28/19 22:30 Al Hydrox/Mg Hydrox/Simethicone (Mylanta) 30 ml Q4HP PRN PO HEARTBURN/INDIGESTION 10/28/19 22:30 Home Med (Med Rec Complete!) ASDIRECTED XX 10/28/19 21:45 10/28/19 21:38 DC Magnesium Hydroxide (Milk Of Magnesia) 30 ml DAILYPRN PRN PO CONSTIPATION 10/28/19 22:30 Nicotine (Nicorette) 2 mg Q4HP PRN PO NICOTINE WITHDRAWAL 10/29/19 10:30 11/01/19 14:39 Olanzapine (ZyPREXA) 5 mg BID PO 10/29/19 21:00 10/31/19 13:41 DC 10/30/19 20:44 Olanzapine (ZyPREXA) 10 mg QHS PO 10/31/19 21:00 10/31/19 20:21 Omeprazole (PriLOSEC) 40 mg DAILY PO 10/29/19 09:00 Trazodone HCl (Desyrel) 50 mg QHSP PRN PO INSOMNIA 10/28/19 22:30 10/31/19 20:21 Allergies Coded Allergies: [place] (Verified Allergy, Intermediate, 05/02/19) Mouth gets itchy LAY JEROME MD Nov 01, 2019 15:15
[2019-11-01 18:00] VITALS: BP 135/66
[2019-11-01] MEDS: traZODone 50 MG TAB PO PRN (20:33)
[2019-11-01] MEDS: OLANZapine 10 MG TAB PO SCH (20:33)
[2019-11-02 06:01] VITALS: BP 126/58
[2019-11-02] MEDS: OMEPRAZOLE 20 MG CAP PO SCH (08:39)
[2019-11-02] MEDS: NICOTINE POLACRILEX 2 MG GUM PO PRN ×2 (08:40→18:53)
--- NOTE | 2019-11-02 11:21 | MHIPNPDOC ---
[facility] Progress Note Progress Note DATE OF SERVICE: 11/02/19 HISTORY: This is day 5 of patient's admission. Patient is a Obese 24 -year-old Single, Unemployed, Domiciled , male, (lives with his mother) who was brought in on a 9.41 after his mother initiated a transport to the Emergency Department due to his threats of suicidality and homicidality. Patient reports that this is his 4th admission to psychiatry with PMH of schizophrenia, bipolar, anxiety, depression, on this occasion he was admitted to [facility] for unspecified psychosis. He has been behaving bizarrely harassing people for approximately one month. His mother reports that he had Suicidal and Homicidal threats to mother , his grandmother and uncle. VITAL SIGNS: See below. NEW TEST RESULTS: . CURRENT MEDICATIONS: See below. MENTAL STATUS EXAMINATION: Patient is a 24-year old Single, Unemployed, Domiciled male, who is observed with no suicidal or homicidal ideation, planning or intent. He denies depression and anxiety a Calm and cooperative in the interview, he is dressed appropriately (hospital scrubs) hygiene and grooming is good, eye contact is good. No psychomotor agitation or retardation noted. Speech: Is mildly slow rate, tone and volume is mildly low Language skills are good Thought processes including: linear and goal oriented Thought content: denies depression, anxiety, agitation, hallucinations, paranoid, cosme auditory/visual hallucinations. Abstract reasoning, and computation: fair. Description of associations: Mildly delusional Description of abnormal or psychotic thoughts: none noted/patient denies. Judgment: fair Insight: fair Orientation: alert and oriented Recent and remote memory: intact Attention span and concentration: good Language: good Fund of knowledge: average Mood: reports euthymic "good" Affect: constricted DIAGNOSES: 1. Bipolar I Disorder per history 2. Stimulant Use Disorder 3. Stimulant Induced Psychosis ASSESSMENT: Patient reports that Zyprexa makes him feel "nothing." Patient is subdued, he appears to be mildly persecutory stating that people want him to be different. I encouraged the patient to take his medications while he is at home, he states "I have the right to choose whether I take medications or not, I am not depressed, I am not suicidal and I am not crazy." Patient is alert and oriented in the interview, he is calm and cooperative and does appear to be sincere about his mood and does appear to be very mildly delusional but not a harm to himself or others. MANAGEMENT PLAN: Continue medications as prescribed. He will be discharged tomorrow, pending his mother is agreeable to his return and that she feels he is safe. TIME SPENT: 20 minutes. Vital Signs Vital Signs Date Time Temp Pulse Resp B/P (MAP) Pulse Ox O2 Delivery O2 Flow Rate FiO2 11/02/19 06:01 96.7 58 14 126/58 (80) 98 Room Air Current Medications Current Medications Medications (Trade) Dose Ordered Sig/Elinor Route PRN Reason Start Time Stop Time Status Last Admin Dose Admin Acetaminophen (Tylenol Tab) 650 mg Q6HP PRN PO HEADACHE or DISCOMFORT 10/28/19 22:30 Al Hydrox/Mg Hydrox/Simethicone (Mylanta) 30 ml Q4HP PRN PO HEARTBURN/INDIGESTION 10/28/19 22:30 Home Med (Med Rec Complete!) ASDIRECTED XX 10/28/19 21:45 10/28/19 21:38 DC Magnesium Hydroxide (Milk Of Magnesia) 30 ml DAILYPRN PRN PO CONSTIPATION 10/28/19 22:30 Nicotine (Nicorette) 2 mg Q4HP PRN PO NICOTINE WITHDRAWAL 10/29/19 10:30 11/02/19 11:06 DC 11/02/19 08:40 Nicotine (Nicorette) 4 mg Q2HP PRN PO NICOTINE WITHDRAWAL 11/02/19 11:15 Olanzapine (ZyPREXA) 5 mg BID PO 10/29/19 21:00 10/31/19 13:41 DC 10/30/19 20:44 Olanzapine (ZyPREXA) 10 mg QHS PO 10/31/19 21:00 11/01/19 20:33 Omeprazole (PriLOSEC) 40 mg DAILY PO 10/29/19 09:00 Trazodone HCl (Desyrel) 50 mg QHSP PRN PO INSOMNIA 10/28/19 22:30 11/01/19 20:33 Allergies Coded Allergies: [place] (Verified Allergy, Intermediate, 05/02/19) Mouth gets itchy DOMENICA MUÑOZ INTERACTIVE MEDIA DESIGNER Nov 02, 2019 11:21
[2019-11-02] MEDS: OLANZapine 10 MG TAB PO SCH (20:40)
[2019-11-02] MEDS: traZODone 50 MG TAB PO PRN (20:40)
[2019-11-03 06:28] VITALS: BP 98/68
[2019-11-03] MEDS: OMEPRAZOLE 20 MG CAP PO SCH (09:00)
[2019-11-03] MEDS: NICOTINE POLACRILEX 2 MG GUM PO PRN (10:01)
[2019-11-03] MEDS ORDERED: OLAN10TA2 PO (12:39)
[2019-11-03] MEDS ORDERED: OMEP-218 PO (12:39)
[2019-11-03] MEDS ORDERED: TRAZ-252 PO (12:39)
[2019-11-03] MEDS ORDERED: NICO2GUM PO (12:39)
--- NOTE | 2019-11-03 12:56 | MHDSPDOC ---
[facility] Discharge Summary Discharge Summary DATE OF ADMISSION: Oct 28, 2019 at 22:12 DATE OF DISCHARGE: November 03, 2019 at 1244 DISCHARGE DIAGNOSES: 1. Bipolar I Disorder per history 2. Stimulant Use Disorder 3. Stimulant Induced Psychosis REASON FOR ADMISSION: This is day 6 of patient's admission. Patient is a Obese 24 -year-old Single, Unemployed, Domiciled , male, (lives with his mother) who was brought in on a 9.41 after his mother initiated a transport to the Emergency Department due to his threats of suicidality and homicidality. Patient reports that this is his 4th admission to psychiatry with PMH of schizophrenia, bipolar, anxiety, depression, on this occasion he was admitted to [facility] for unspecified psychosis. He has been behaving bizarrely harassing people for approximately one month. His mother reports that he had Suicidal and Homicidal threats to mother , his grandmother and uncle. CONSULTANTS INVOLVED: see medical H + P by Dr. Hanny Pearl TREATMENT AND PROGRESS ON THE UNIT : Patient was afforded the following treatment modalities 1) Individual therapy, 2) Group therapy, 3) Medication Management 4) Milieu Therapy 5) Safe Environment HOSPITAL COURSE: Patient was restarted on his medications. He was compliant in the milieu, he was social with peers and deported on initial psychiatric admission that he had no depression, anxiety, suicidal/homicidal ideation. Patient was cooperative and was reporting that his mother lied about his needing to be here. Much of his hospitalization pointed to mild paranoia towards his mother. He appeared to be minimizing his need for hospitalization. He stated that he was not suicidal or homicidal to himself or his mother. DISCHARGE ASSESSMENT: Patient reports that Zyprexa makes him feel "manic." I encouraged the patient to take his medications when he returns to home, he states "I have the right to choose whether I take medications or not, I am not depressed, I am not suicidal and I am not crazy." We discussed the insurance company wanting him to consider a long-acting injectable. He states that he has no desire to take an IM injection. He reports that when he was on Invega Sustenna that he was very sedated and drowsy,. "I was a Zombie and I don't want to feel like that again." He was very irritable and stated "I am going to cancel my insurance, they can't dictate how I live my life." Patient is alert and oriented in the interview, he reports that he is not a harm to himself or others. He is not observed with acute paranoia, cosme, depression, anxiety, agitation or delusions. MENTAL STATUS EXAMINATION: Patient is a 24-year old Single, Unemployed, Domiciled male, who is observed with no suicidal or homicidal ideation, planning or intent. He denies depression and anxiety a Calm and cooperative in the interview, he is dressed appropriately (hospital scrubs) hygiene and grooming is good, eye contact is good. No psychomotor agitation or retardation noted. Speech: Is mildly slow rate, tone and volume is mildly low Language skills are good Thought processes including: linear and goal oriented Thought content: denies depression, anxiety, agitation, hallucinations, paranoid, cosme auditory/visual hallucinations. Abstract reasoning, and computation: fair. Description of associations: none noted/patient denies Description of abnormal or psychotic thoughts: none noted/patient denies. Judgment: fair Insight: fair Orientation: alert and oriented Recent and remote memory: intact Attention span and concentration: good Language: good Fund of knowledge: average Mood: reports euthymic "good" Affect: constricted MEDICATIONS ON DISCHARGE: See Medication Reconciliation PLAN/FOLLOWUP ARRANGEMENTS: Follow up with [facility], please see discharge planners notes. Mother was called, she is not agreeable to allowing him to return. Patient is agreeable to going to [facility] for emergency housing. The amount of time spent in the coordination of care for this patient was approximately 35 minutes. Vital Signs/I&Os Vital Signs Date Time Temp Pulse Resp B/P (MAP) Pulse Ox O2 Delivery O2 Flow Rate FiO2 11/03/19 06:28 98.5 71 18 98/68 (78) 11/02/19 06:01 98 Room Air Medications Scheduled Olanzapine (Olanzapine) 10 Mg Tablet, 10 MG PO DAILY for antipsychotic, #7 Omeprazole (Omeprazole) 20 Mg Capsule.dr, 40 MG PO DAILY for acid reflux, #7 Scheduled PRN Nicotine Polacrilex (Nicotine Gum) 2 Mg Gum, 4 MG PO Q2HP PRN for NICOTINE WITHDRAWAL, #84 Trazodone HCl (Trazodone HCl) 50 Mg Tablet, 50 MG PO QHSP PRN for INSOMNIA, #7 Allergies Coded Allergies: [place] (Verified Allergy, Intermediate, 05/02/19) Mouth gets itchy DOMENICA MUÑOZ NP Nov 03, 2019 12:56
== END 2019-11-03 14:30 | disposition home or self-care (01) | DRG 753 ==
LOC: M ED 16:35 → M ED INP 22:12 → M PSY 10-29 03:07
PROVIDERS: ADMIT Psychiatry & Neurology Psychiatry; ATTEND Psychiatry & Neurology Psychiatry
DX: F31.9 Bipolar disorder, unspecified (principal); E66.01 Morbid (severe) obesity due to excess calories; E53.8 Deficiency of other specified B group vitamins; K21.9 Gastro-esophageal reflux disease without esophagitis; F15.159 Other stimulant abuse with stimulant-induced psychotic disorder, unspecified; Z91.018 Allergy to other foods

== ENCOUNTER 2019-11-25 15:15 | Emergency (ER) | payer MEDICAID, OTHER ==
[~2019-11-25 15:15] MED LIST changes: +NICO2GUM PO; +OLAN10TA2 PO; +OMEP-218 PO; +TRAZ-252 PO
[2019-11-25 16:13] LABS: HEMATOCRIT 45.5 % (42.0-52.0); HEMOGLOBIN 14.7 g/dl (13.5-17.5); MEAN CORPUSCULAR HEMOGLOBIN 28.4 pg (27.0-33.0); MEAN CORPUSCULAR HGB CONC 32.3 g/dl (32.0-36.5); PLATELET COUNT, AUTOMATED 271 10^3/uL (150-450); RED BLOOD COUNT 5.17 10^6/uL (4.30-6.10); WHITE BLOOD COUNT 8.5 10^3/uL (4.0-10.0)
[2019-11-25 16:51] LABS: ACETAMINOPHEN LEVEL < 2.0 UG/ML (10.0-30.0); ALBUMIN 4.1 GM/DL (3.2-5.2); ALT/SGPT 179 U/L (12-78); BILIRUBIN,DIRECT 0.3 MG/DL (0.0-0.2); BILIRUBIN,TOTAL 0.6 MG/DL (0.2-1.0); BLOOD UREA NITROGEN 12 MG/DL (7-18); CALCIUM LEVEL 9.4 MG/DL (8.5-10.1); CARBON DIOXIDE LEVEL 28 MEQ/L (21-32); CHLORIDE LEVEL 104 MEQ/L (98-107); CREATININE FOR GFR 1.08 MG/DL (0.70-1.30); ETHYL ALCOHOL (ETHANOL) < 0.003 % (0.000-0.010); GLOMERULAR FILTRATION RATE > 60.0 (>60); GLUCOSE, FASTING 88 MG/DL (70-100); POTASSIUM SERUM 3.4 MEQ/L (3.5-5.1); SALICYLATE LEVEL < 1.7 MG/DL (5.0-30.0); SODIUM LEVEL 139 MEQ/L (136-145)
[2019-11-25 18:08] LABS: AMPHETAMINES LEVEL URINE POSITIVE (NEGATIVE); BARBITURATES URINE NEGATIVE (NEGATIVE); BENZODIAZEPINES URINE NEGATIVE (NEGATIVE); CANNABINOIDS URINE POSITIVE (NEGATIVE); COCAINE METABOLITE URINE NEGATIVE (NEGATIVE); METHADONE URINE NEGATIVE (NEGATIVE); OPIATES URINE NEGATIVE (NEGATIVE); PHENCYCLIDINE URINE NEGATIVE (NEGATIVE)
[2019-11-25] MEDS ORDERED: NICO2GUM47 PO (21:04)
[2019-11-25] MEDS ORDERED: OLANZapine ORAL DISINTEGRATING TAB 5MG PO ONE (22:00)
--- NOTE | 2019-11-26 00:11 | ECGEPIP ---
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
[2019-11-26 00:47] VITALS: BP 138/79
== END 2019-11-26 00:58 ==
LOC: M ED 15:15
DX: F20.9 Schizophrenia, unspecified (principal); F15.159 Other stimulant abuse with stimulant-induced psychotic disorder, unspecified; F31.9 Bipolar disorder, unspecified; F41.9 Anxiety disorder, unspecified; Z20.828 Contact with and (suspected) exposure to other viral communicable diseases; Z79.899 Other long term (current) drug therapy
CPT/HCPCS: 36415; 80048; 80076; 80307; 84443; 85027; 93005; 99285; G0480; U0002

== ENCOUNTER 2019-12-09 20:22 | Emergency (ER) | payer OTHER ==
[~2019-12-09] VITALS: Ht 188 cm; Wt 159.8 kg
[~2019-12-09 20:22] MED LIST changes: +NICO2GUM47 PO
[2019-12-09] MEDS ORDERED: OLAN5ZYD (20:41)
[2019-12-09] MEDS ORDERED: D31000TA2 (20:41)
[2019-12-09] MEDS ORDERED: NICOINH (20:41)
[2019-12-09] MEDS ORDERED: BENZ0.5T23 (20:41)
[2019-12-09 21:48] VITALS: BP 149/72
== END 2019-12-09 23:01 | disposition left against medical advice (07) ==
LOC: M ED 20:22
DX: S90.821A Blister (nonthermal), right foot, initial encounter (principal); S90.822A Blister (nonthermal), left foot, initial encounter; X50.1XXA Overexertion from prolonged static or awkward postures, initial encounter; Y92.9 Unspecified place or not applicable; Y93.01 Activity, walking, marching and hiking; Y99.9 Unspecified external cause status; Z53.9 Procedure and treatment not carried out, unspecified reason

== ENCOUNTER 2019-12-12 18:48 | Emergency (ER) | payer OTHER ==
[~2019-12-12 18:48] MED LIST changes: +BENZ0.5T23; +D31000TA2; +NICOINH; +OLAN5ZYD
[2019-12-12 19:51] LABS: HEMATOCRIT 44.6 % (42.0-52.0); HEMOGLOBIN 14.6 g/dl (13.5-17.5); MEAN CORPUSCULAR HEMOGLOBIN 28.6 pg (27.0-33.0); MEAN CORPUSCULAR HGB CONC 32.7 g/dl (32.0-36.5); MEAN CORPUSCULAR VOLUME 87.3 fl (80.0-96.0); PLATELET COUNT, AUTOMATED 241 10^3/uL (150-450); RED BLOOD COUNT 5.11 10^6/uL (4.30-6.10); WHITE BLOOD COUNT 5.2 10^3/uL (4.0-10.0)
[2019-12-12 20:11] LABS: AMPHETAMINES LEVEL URINE NEGATIVE (NEGATIVE); BARBITURATES URINE NEGATIVE (NEGATIVE); BENZODIAZEPINES URINE NEGATIVE (NEGATIVE); CANNABINOIDS URINE POSITIVE (NEGATIVE); COCAINE METABOLITE URINE NEGATIVE (NEGATIVE); METHADONE URINE NEGATIVE (NEGATIVE); OPIATES URINE NEGATIVE (NEGATIVE); PHENCYCLIDINE URINE NEGATIVE (NEGATIVE)
[2019-12-12 20:23] LABS: ACETAMINOPHEN LEVEL < 2.0 UG/ML (10.0-30.0); ALBUMIN 3.2 GM/DL (3.2-5.2); ALT/SGPT 69 U/L (12-78); BILIRUBIN,DIRECT 0.2 MG/DL (0.0-0.2); BILIRUBIN,TOTAL 0.5 MG/DL (0.2-1.0); BLOOD UREA NITROGEN 10 MG/DL (7-18); CALCIUM LEVEL 8.3 MG/DL (8.5-10.1); CARBON DIOXIDE LEVEL 29 MEQ/L (21-32); CHLORIDE LEVEL 107 MEQ/L (98-107); CREATININE FOR GFR 0.91 MG/DL (0.70-1.30); ETHYL ALCOHOL (ETHANOL) < 0.003 % (0.000-0.010); GLOMERULAR FILTRATION RATE > 60.0 (>60); GLUCOSE, FASTING 83 MG/DL (70-100); POTASSIUM SERUM 3.6 MEQ/L (3.5-5.1); SALICYLATE LEVEL < 1.7 MG/DL (5.0-30.0); SODIUM LEVEL 141 MEQ/L (136-145); TOTAL PROTEIN 6.6 GM/DL (6.4-8.2)
[2019-12-12 21:39] VITALS: BP 136/75
== END 2019-12-12 21:42 | disposition home or self-care (01) ==
LOC: M ED 18:48
DX: F43.0 Acute stress reaction (principal); R45.851 Suicidal ideations; F20.9 Schizophrenia, unspecified; F31.9 Bipolar disorder, unspecified; F41.9 Anxiety disorder, unspecified; M54.5 Low back pain; K21.9 Gastro-esophageal reflux disease without esophagitis; Z91.010 Allergy to peanuts; Z79.899 Other long term (current) drug therapy
CPT/HCPCS: 36415; 80048; 80076; 80307; 84443; 85027; 99284; G0480

== ENCOUNTER → 2019-12-18 | Outpatient (CLI) | payer MEDICAID | LOC: M OUTALCOH 07:57 | PROVIDERS: ATTEND Psychiatry & Neurology Addiction Medicine | DX: F12.10 Cannabis abuse, uncomplicated (principal); F15.10 Other stimulant abuse, uncomplicated ==

== ENCOUNTER 2019-12-31 00:54 | Emergency (ER) | payer MEDICAID ==
[~2019-12-31] VITALS: Ht 193 cm; Wt 151.8 kg
[2019-12-31 00:59] VITALS: BP 169/89
== END 2019-12-31 01:58 | disposition left against medical advice (07) ==
LOC: M ED 00:54
DX: Z53.21 Procedure and treatment not carried out due to patient leaving prior to being seen by health care provider (principal)

== ENCOUNTER 2020-01-15 03:43 | Emergency (ER) | payer MEDICAID, OTHER ==
[~2020-01-15] VITALS: Ht 193 cm; Wt 154.6 kg
[~2020-01-15 03:43] MED LIST changes: -BENZ0.5T23; +BENZ0.5T23 PO; -D31000TA2; -NICOINH; +NICOINH INH; -OLAN5ZYD; +OLAN5ZYD PO
[2020-01-15] MEDS ORDERED: OLANZapine ORAL DISINTEGRATING TAB 5MG PO ONE (05:00)
[2020-01-15 05:28] LABS: HEMATOCRIT 41.8 % (42.0-52.0); HEMOGLOBIN 13.3 g/dl (13.5-17.5); MEAN CORPUSCULAR HEMOGLOBIN 27.9 pg (27.0-33.0); MEAN CORPUSCULAR HGB CONC 31.8 g/dl (32.0-36.5); MEAN CORPUSCULAR VOLUME 87.6 fl (80.0-96.0); PLATELET COUNT, AUTOMATED 274 10^3/uL (150-450); RED BLOOD COUNT 4.77 10^6/uL (4.30-6.10); WHITE BLOOD COUNT 6.2 10^3/uL (4.0-10.0)
--- NOTE | 2020-01-15 06:47 | ECGEPIP ---
[facility] - ED Test Date: 2020-01-15 Pat Name: ANKUSH MCGEE Department: Room: - Gender: Male Manager Call: aria : 1995 Requested By: Adrian Van Order Number: [id number] Reading MD: Ld Malone Measurements Intervals [place] Rate: 73 P: 42 VA: 154 QRS: 40 QRSD: 90 T: 51 QT: 384 QTc: 426 Interpretive Statements SINUS RHYTHM NONSPECIFIC ST T WAVE CHANGES CW 11/25/[address] T WAVE CHANGES Electronically Signed on 01-15-2020 6:46:57 EST by Ld Malone
[2020-01-15 06:54] LABS: ACETAMINOPHEN LEVEL < 2.0 UG/ML (10.0-30.0); ALBUMIN 3.8 GM/DL (3.2-5.2); ALT/SGPT 32 U/L (12-78); BILIRUBIN,DIRECT 0.2 MG/DL (0.0-0.2); BILIRUBIN,TOTAL 0.5 MG/DL (0.2-1.0); BLOOD UREA NITROGEN 13 MG/DL (7-18); CALCIUM LEVEL 8.9 MG/DL (8.5-10.1); CARBON DIOXIDE LEVEL 28 MEQ/L (21-32); CHLORIDE LEVEL 106 MEQ/L (98-107); CREATININE FOR GFR 1.06 MG/DL (0.70-1.30); ETHYL ALCOHOL (ETHANOL) < 0.003 % (0.000-0.010); GLOMERULAR FILTRATION RATE > 60.0 (>60); GLUCOSE, FASTING 84 MG/DL (70-100); POTASSIUM SERUM 4.2 MEQ/L (3.5-5.1); SALICYLATE LEVEL < 1.7 MG/DL (5.0-30.0); SODIUM LEVEL 139 MEQ/L (136-145); TOTAL PROTEIN 7.1 GM/DL (6.4-8.2)
[2020-01-15 06:55] LABS: AMPHETAMINES LEVEL URINE POSITIVE (NEGATIVE); BARBITURATES URINE NEGATIVE (NEGATIVE); BENZODIAZEPINES URINE NEGATIVE (NEGATIVE); CANNABINOIDS URINE POSITIVE (NEGATIVE); COCAINE METABOLITE URINE NEGATIVE (NEGATIVE); METHADONE URINE NEGATIVE (NEGATIVE); OPIATES URINE NEGATIVE (NEGATIVE); PHENCYCLIDINE URINE NEGATIVE (NEGATIVE)
[2020-01-15] MEDS ORDERED: BENZTROPINE 0.5 MG TAB PO SCH (09:00)
[2020-01-15] MEDS ORDERED: VITAMIN D 1,000 INTERNATIONAL UNITS TABLET PO SCH (09:00)
[2020-01-15] MEDS ORDERED: OLANZapine ORAL DISINTEGRATING TAB 5MG PO SCH (21:00)
[2020-01-15 23:46] VITALS: BP 138/60
== END 2020-01-15 23:54 ==
LOC: M ED 03:43
DX: F29 Unspecified psychosis not due to a substance or known physiological condition (principal); F15.10 Other stimulant abuse, uncomplicated; F31.9 Bipolar disorder, unspecified; F20.9 Schizophrenia, unspecified; F41.9 Anxiety disorder, unspecified; Z20.828 Contact with and (suspected) exposure to other viral communicable diseases; Z79.899 Other long term (current) drug therapy
CPT/HCPCS: 36415; 80048; 80076; 80307; 84443; 85027; 93005; 99284; G0480; U0002

== ENCOUNTER 2020-02-09 14:17 | Emergency (ER) | payer OTHER ==
[~2020-02-09] VITALS: Ht 195.6 cm; Wt 151.8 kg
[~2020-02-09 14:17] MED LIST changes: +QUET5TAB PO
--- NOTE | 2020-02-09 15:39 | REP ---
INDICATION: SOB COMPARISON: 05/02/2019 TECHNIQUE: Portable AP view of the chest FINDINGS: The mediastinum and cardiac silhouette are stable and within normal limits for portable technique. The lung piedra are clear without acute consolidation, effusion, or pneumothorax. Skeletal structures are intact. IMPRESSION: No acute cardiopulmonary process appreciated. <Electronically signed by Gama Glover > 02/09/20 1534
[2020-02-09 16:03] LABS: INFLUENZA A AMPLIFICATION NEGATIVE (NEGATIVE); INFLUENZA B AMPLIFICATION NEGATIVE (NEGATIVE)
[2020-02-09 16:18] VITALS: BP 113/77
== END 2020-02-09 16:22 | disposition home or self-care (01) ==
LOC: M ED 14:17
DX: J06.9 Acute upper respiratory infection, unspecified (principal); B34.9 Viral infection, unspecified; K21.9 Gastro-esophageal reflux disease without esophagitis; F31.9 Bipolar disorder, unspecified; F17.200 Nicotine dependence, unspecified, uncomplicated
CPT/HCPCS: 71045; 87631; 99283; U0003

== ENCOUNTER 2020-02-13 15:11 | Emergency (ER) | payer OTHER ==
[~2020-02-13] VITALS: Ht 195.6 cm; Wt 151.2 kg
[2020-02-13] MEDS ORDERED: ceFAZolin SOD 1 GM in D5W MINI-BAG PLUS 50 ML IV ONE (15:45)
--- NOTE | 2020-02-13 16:06 | REP ---
INDICATION: trauma COMPARISON: None. TECHNIQUE: AP, lateral, bilateral oblique views left hand. FINDINGS: Soft tissue injury/laceration along the dorsal aspect of the hand overlying the metacarpal bones. The osseous structures appear grossly intact and without evidence for acute fracture or dislocation. IMPRESSION: Soft tissue injury and laceration. No evidence of acute fracture or dislocation. <Electronically signed by Gama Glover > 02/13/20 [id number]
[2020-02-13] MEDS ORDERED: LIDOCAINE W/EPINEPHRINE 1% 20ML VIAL SC ONE (17:30)
[2020-02-13] MEDS ORDERED: AUGM875T28 PO (18:35)
[2020-02-13 19:02] VITALS: BP 146/80
--- NOTE | 2020-02-14 11:03 | CR ---
CONSULTATION DATE: 02/13/2020 CONSULTING SERVICE: Orthopedic surgery. CONSULTING PHYSICIAN: Severiano Watson M.D. HISTORY OF PRESENT ILLNESS: This is a 24-year-old male who sustained a left dorsal hand laceration after dropping glass onto his left hand. The patient presented to the [facility] Emergency Department for further evaluation and treatment regarding his left hand dorsal laceration. This appeared to involve the small finger, ring finger, and middle finger overlying the metacarpals, consistent with a zone 6 dorsal extensor tendon injury. The patient was evaluated by the orthopedic surgeon drafter (cad) electronic. PAST MEDICAL HISTORY: 1. Bipolar manic personality disorder. 2. Stimulant drug use history. PAST SURGICAL HISTORY: The patient denies. MEDICATION ALLERGIES: The patient denies. CURRENT MEDICATIONS: Psychiatric medications; please see ER medication reconciliation report. REVIEW OF SYSTEMS: A 14-point review of systems is negative unless is otherwise described in the HPI above. PHYSICAL EXAMINATION: The patient had an approximately 3 inch laceration on the dorsal aspect of his left hand overlying the fifth, fourth, and third metacarpals consistent with a zone 6 dorsal extensor tendon injury. The patient did have intact capillary profusion to the small, ring, and middle fingers. The patient had intact flexion of the small, ring, middle, index, and thumb about the distal, middle, and proximal interphalangeal joints. He was not able to extend his small, ring, and index finger at the metacarpal phalangeal joint, the proximal interphalangeal joint, or the distal interphalangeal joint secondary to extensor tendon involvement in zone 6. He had intact radial and ulnar pulse of the left upper extremity. IMAGING: The patient's left hand radiographs demonstrate no osseous abnormalities. IMPRESSION: This is a 24-year-old male with a zone 6 extensor tendon injury involving the small finger, ring finger, and index finger. PLAN: Orthopedic surgery recommended that the ER physician copiously irrigate the aforementioned injury with 6 liters of normal saline and reapproximate the skin edges loosely using nylon suture, splint the patient in a comfortable position, and transfer to a hand specialist in the regional vicinity. This could occur either acutely, but would also be appropriate for follow-up in the next two to three days, for further evaluation and treatment per the hand specialist recommendations. Given the patient's intact neurovascular status and complicated extensor tendon injury, it would be appropriate for a hand surgical garment fitter.
== END 2020-02-13 19:06 | disposition home or self-care (01) ==
LOC: EDBD 15:11 → M ED 15:11
DX: S61.412A Laceration without foreign body of left hand, initial encounter (principal); S66.222A Laceration of extensor muscle, fascia and tendon of left thumb at wrist and hand level, initial encounter; W25.XXXA Contact with sharp glass, initial encounter; F31.9 Bipolar disorder, unspecified; F15.10 Other stimulant abuse, uncomplicated; Y92.9 Unspecified place or not applicable; Y93.9 Activity, unspecified; Y99.9 Unspecified external cause status
CPT/HCPCS: 12005; 73130; 96365; 99284; J0690

== ENCOUNTER 2020-02-16 07:34 | Inpatient (IN) | payer OTHER ==
[~2020-02-16] VITALS: Ht 182.9 cm; Wt 104.5 kg
[~2020-02-16 07:34] MED LIST changes: +AUGM875T28 PO
[2020-02-16] MEDS ORDERED: VANCOMYCIN HCL 2,000 MG in D5W 500 ML IV ONE (08:15)
[2020-02-16 08:23] LABS: BASO % 0.3 % (0.0-1.0); EOS # 0.2 10^3/uL (0.0-0.5); EOS % 3.7 % (0.0-3.0); HEMATOCRIT 43.4 % (42.0-52.0); HEMOGLOBIN 13.8 g/dl (13.5-17.5); LYMPH # 2.7 10^3/uL (1.5-5.0); LYMPH % 42.1 % (24.0-44.0); MEAN CORPUSCULAR HEMOGLOBIN 27.8 pg (27.0-33.0); MEAN CORPUSCULAR HGB CONC 31.8 g/dl (32.0-36.5); MEAN CORPUSCULAR VOLUME 87.3 fl (80.0-96.0); MONO # 0.5 10^3/uL (0.0-0.8); NEUTROPHILS % 45.7 % (36.0-66.0); PLATELET COUNT, AUTOMATED 249 10^3/uL (150-450); RED BLOOD COUNT 4.97 10^6/uL (4.30-6.10); WHITE BLOOD COUNT 6.5 10^3/uL (4.0-10.0)
[2020-02-16] MEDS ORDERED: VANCOMYCIN HCL 1,000 MG, VIAL MATE ADAPTER 1 EACH in D5W 250 ML IV ONE ×6 (08:30)
[2020-02-16 08:56] LABS: BLOOD UREA NITROGEN 16 MG/DL (7-18); CALCIUM LEVEL 8.5 MG/DL (8.5-10.1); CARBON DIOXIDE LEVEL 25 MEQ/L (21-32); CHLORIDE LEVEL 107 MEQ/L (98-107); CREATININE FOR GFR 0.96 MG/DL (0.70-1.30); ETHYL ALCOHOL (ETHANOL) < 0.003 % (0.000-0.010); GLOMERULAR FILTRATION RATE > 60.0 (>60); GLUCOSE, FASTING 92 MG/DL (70-100); POTASSIUM SERUM 3.8 MEQ/L (3.5-5.1); SODIUM LEVEL 141 MEQ/L (136-145)
--- NOTE | 2020-02-16 09:55 | REP ---
INDICATION: Left hand laceration, redness/swelling COMPARISON: None. TECHNIQUE: AP, lateral, bilateral oblique views left hand. FINDINGS: Lateral view best demonstrates area of soft tissue swelling and induration dorsally overlying the metacarpal region. No underlying subcutaneous emphysema or foreign body. The osseous structures appear intact and without evidence for acute fracture. No dislocation. IMPRESSION: Soft tissue injury noted dorsally over the metacarpal region. No acute fracture or dislocation. <Electronically signed by Gama Glover > 02/16/20 0958
[2020-02-16] MEDS ORDERED: AMOX875T2 PO (10:35)
[2020-02-16 12:38] LABS: AMPHETAMINES LEVEL URINE POSITIVE (NEGATIVE); BARBITURATES URINE NEGATIVE (NEGATIVE); BENZODIAZEPINES URINE NEGATIVE (NEGATIVE); CANNABINOIDS URINE POSITIVE (NEGATIVE); COCAINE METABOLITE URINE NEGATIVE (NEGATIVE); METHADONE URINE NEGATIVE (NEGATIVE); OPIATES URINE NEGATIVE (NEGATIVE); PHENCYCLIDINE URINE NEGATIVE (NEGATIVE)
--- NOTE | 2020-02-16 14:56 | HPEPDOC ---
[facility] Medical History & Physical Date of Admission Feb 16, 2020 Date of Service: Feb 16, 2020 History and Physical CHIEF COMPLAINT: Hand laceration HISTORY OF PRESENT ILLNESS: This is a 24-year-old male who sustained a left dorsal hand laceration after dropping glass onto his left hand. The patient presented to the [facility] Emergency Department on 02/13/20 for further evaluation and treatment regarding his left hand dorsal laceration. This appeared to involve the small finger, ring finger, and middle finger overlying the metacarpals, consistent with a zone 6 dorsal extensor tendon injury. The patient was evaluated by the orthopedic surgeon field operations manager. He was treated in the ED, with recommendations for outpatient follow up with hand surgery. He returns today with worsening hand pain and difficulty with extension. He denies any other medical complaints. Orthopedics was consulted while the patient was in the ED and have agreed to manage his hand injury. As such, patient is being admitted for further treatment by orthopedics. ALLERGIES: Please see below. REVIEW OF SYSTEMS: Negative except as per HPI HOME MEDICATIONS: Please see below. PHYSICAL EXAMINATION: VITAL SIGNS: See below General; NAD, lying comfortably in bed HEENT: NC/AT, EOMI Lungs: CTA B/L Heart: +S1S2, RRR Abd: soft, NT, ND, +BS Ext: no edema LABORATORY DATA: See below. MICROBIOLOGY: Please see below. ASSESSMENT/PLAN: 24 yo male for worsening hand pain and difficulty with range of motion secondary to hand injury. #hand injury - discussed with ortho - have agreed for admission and further treatment - consultation pending - IV abx - cultures pending - MRSA screen #DVT prophylaxis - not indicated Vital Signs Vital Signs Date Time Temp Pulse Resp B/P (MAP) Pulse Ox O2 Delivery O2 Flow Rate FiO2 02/16/20 12:20 98.2 95 18 124/72 (89) 99 Room Air Laboratory Data Labs 24H Laboratory Tests 2 02/16/20 08:15: Immature Granulocyte % (Auto) 0.2, Neutrophils (%) (Auto) 45.7, Lymphocytes (%) (Auto) 42.1, Monocytes (%) (Auto) 8.0H, Eosinophils (%) (Auto) 3.7H, Basophils (%) (Auto) 0.3, Neutrophils # (Auto) 3.0, Lymphocytes # (Auto) 2.7, Monocytes # (Auto) 0.5, Eosinophils # (Auto) 0.2, Basophils # (Auto) 0.0, Nucleated Red Blood Cells % (auto) 0.0, Anion Gap 9, Glomerular Filtration Rate > 60.0, Calcium Level 8.5, Ethyl Alcohol Level < 0.003, Coronavirus (COVID-19)(PCR) NEGATIVE 02/16/20 12:03: Urine Opiates Screen NEGATIVE, Urine Methadone Screen NEGATIVE, Urine Barbiturates Screen NEGATIVE, Urine Phencyclidine Screen NEGATIVE, Urine Amphetamines Screen POSITIVEH, Urine Benzodiazepines Screen NEGATIVE, Urine Cocaine Metabolite Screen NEGATIVE, Urine Cannabinoids Screen POSITIVEH CBC/BMP Laboratory Tests 02/16/20 08:15 Microbiology Microbiology 02/16/20 Blood Culture, Received Pending 02/16/20 Blood Culture, Received Pending Home Medications Scheduled Amoxicillin/Potassium Clav (Amox-Clav 875-125 mg Tablet) 1 Each Tablet, 1 TAB PO BID FILLED 02/14/20 FOR 7 DAYS Scheduled PRN Quetiapine Fumarate (Quetiapine Fumarate) 50 Mg Tablet, 50 MG PO DAILY PRN for ANXIETY Allergies Coded Allergies: No Known Allergies (Verified Allergy, Unknown, 02/09/20) A-FIB/CHADSVASC A-FIB History Current/History of A-Fib/PAF?: No BRIAN BRADSHAW MD Feb 16, 2020 14:56
--- NOTE | 2020-02-16 16:23 | CR ---
CONSULTATION DATE: 02/16/2020 REASON FOR CONSULTATION: Left hand injury. CHIEF COMPLAINT: This is a left hand injury that reportedly occurred on February 12. HISTORY OF PRESENT ILLNESS: This is a 24-year-old gentleman who is a very poor historian due to psychiatric issues who presented to the Emergency Room on the and apparently Dr. Watson had been consulted and evaluated the patient and recommended washing out the hand and loosely approximating it and then prompt evaluation with a hand surgeon. The patient was given a prescription for Augmentin but he is unable to tell me whether he has been taking it. He presented today due to some increased redness. He still cannot extend his fingers. We attempted to transfer him to see a hand surgeon, but there were no facilities available today. He will be admitted to the Hospitalist for IV antibiotics and eventual evaluation, possibly by Dr. Grant at [facility]. PAST MEDICAL HISTORY: His past medical history is unknown other than psychiatric history. FAMILY HISTORY: Otherwise unknown. ALLERGIES: He reports no known allergies and there are none listed. MEDICATIONS: 1. Augmentin. 2. Quetiapine Fumarate. PHYSICAL EXAMINATION: GENERAL APPEARANCE: He is alert but disoriented. He is uncooperative with the physical exam. EXTREMITIES: His left hand has a transverse laceration over the metacarpals that is over the third, fourth and fifth metacarpals. He currently is unable to actively extend his fingers. He does report grossly intact sensation throughout his fingers, but again, a very limited exam. There is no obvious ischemia noted. No significant red streaking up the arm. There is localized redness around the wound. IMAGING DATA: Previous x-rays were reportedly negative. IMPRESSION: Several day old dorsal hand laceration with likely extensor tendon lacerations involving third, fourth and fifth fingers. RECOMMENDATIONS: 1. Again we recommended that he be transferred to a facility where there would be a hand surgeon available to manage this but there are none available. Apparently the E.R. provider spoke with Dr. Grant, who suggested that the patient be admitted for IV antibiotics and then transferred to hand surgeons when this cleared up. 2. At this point the patient had taken the splint off a couple of days ago. I do not think he is going to be cooperative with leaving a splint on and I think we are going to need to assess his skin and redness in response to antibiotics, so I do not think re-splinting him is worthwhile. PLAN: 1. IV antibiotics that will cover MRSA and this can be determined by the Hospitalists. 2. He can then be transferred to [facility], possibly Dr. Grant, hopefully within a couple of days for further management. The patient seemed to have limited comprehension when I tried to explain this to him.
[2020-02-16 17:00] VITALS: BP 108/74
[2020-02-16] MEDS: VANCOMYCIN HCL 1,000 MG, VIAL MATE ADAPTER 1 EACH in D5W 250 ML IV SCH ×2 (17:11→23:55)
[2020-02-16 22:00] VITALS: BP 105/69
[2020-02-17 02:00] VITALS: BP 110/72
[2020-02-17 06:00] VITALS: BP 115/72
[2020-02-17 06:15] LABS: HEMATOCRIT 42.1 % (42.0-52.0); HEMOGLOBIN 13.6 g/dl (13.5-17.5); MEAN CORPUSCULAR HEMOGLOBIN 28.7 pg (27.0-33.0); MEAN CORPUSCULAR HGB CONC 32.3 g/dl (32.0-36.5); MEAN CORPUSCULAR VOLUME 88.8 fl (80.0-96.0); PLATELET COUNT, AUTOMATED 232 10^3/uL (150-450); RED BLOOD COUNT 4.74 10^6/uL (4.30-6.10); WHITE BLOOD COUNT 6.1 10^3/uL (4.0-10.0)
[2020-02-17 06:40] LABS: BLOOD UREA NITROGEN 11 MG/DL (7-18); CALCIUM LEVEL 8.3 MG/DL (8.5-10.1); CARBON DIOXIDE LEVEL 30 MEQ/L (21-32); CHLORIDE LEVEL 107 MEQ/L (98-107); CREATININE FOR GFR 1.03 MG/DL (0.70-1.30); GLOMERULAR FILTRATION RATE > 60.0 (>60); GLUCOSE, FASTING 88 MG/DL (70-100); POTASSIUM SERUM 4.6 MEQ/L (3.5-5.1); SODIUM LEVEL 142 MEQ/L (136-145)
[2020-02-17] MEDS ORDERED: QUEtiapine FUMARATE 50 MG TAB PO PRN (07:00)
[2020-02-17] MEDS: VANCOMYCIN HCL 1,000 MG, VIAL MATE ADAPTER 1 EACH in D5W 250 ML IV SCH ×3 (08:02→23:28)
--- NOTE | 2020-02-17 11:21 | IPNPDOC ---
Text Note Date of Service The patient was seen on 02/17/20. NOTE Subjective: Patient seen and examined at bedside. No acute overnight events reported. Patient has no new medical complaints this morning. Objective: VITAL SIGNS: See below General; NAD, lying comfortably in bed HEENT: NC/AT, EOMI Lungs: CTA B/L Heart: +S1S2, RRR Abd: soft, NT, ND, +BS Ext: no edema, laceration on dorsal aspect of left hand, sutures in place; patient not co-operative with further examination ASSESSMENT/PLAN: 24 yo male for worsening hand pain and difficulty with range of motion secondary to hand injury from window falling on hand as per patient. #hand injury - management as per orthopedics - IV abx - vancomycin - cultures pending - MRSA screen positive #DVT prophylaxis - not indicated VS,Fishbone, I+O VS, Fishbone, I+O Laboratory Tests 02/17/20 05:43 Vital Signs Date Time Temp Pulse Resp B/P (MAP) Pulse Ox O2 Delivery O2 Flow Rate FiO2 02/17/20 06:00 98.1 72 18 115/72 (86) 99 Room Air I&O- Last 24 Hours up to 6 AM 02/17/20 06:00 Intake Total 2020 ml Balance 2020 ml BRIAN BRADSHAW MD Feb 17, 2020 11:21
[2020-02-17 14:00] VITALS: BP 115/70
[2020-02-17 22:00] VITALS: BP 116/70
[2020-02-18 06:00] VITALS: BP 107/65
--- NOTE | 2020-02-18 08:07 | IPN ---
PROGRESS NOTE DATE: 02/18/2020 SUBJECTIVE: Harpal was admitted for observed management of a left hand laceration after failing outpatient therapy. He is on IV vancomycin. Apparently MRSA positive. Cultures are pending. He says he is moving the hand better than yesterday. He has been afebrile. OBJECTIVE: Afebrile 97.2. Vital signs stable. Left hand is dressed. Lungs clear. Heart regular rhythm. Abdomen soft and nontender. LABORATORY DATA: None ordered for today. ASSESSMENT: Infected left hand laceration. PLAN: Continue antibiotics pending cultures. Ordered labs for tomorrow.
[2020-02-18] MEDS: VANCOMYCIN HCL 1,000 MG, VIAL MATE ADAPTER 1 EACH in D5W 250 ML IV SCH ×2 (08:16→16:51)
[2020-02-18] MEDS: PERCOCET 5MG/325MG TAB PO PRN ×2 (11:48→17:53)
[2020-02-18 14:00] VITALS: BP 125/66
[2020-02-18 22:00] VITALS: BP 124/66
[2020-02-19] MEDS: VANCOMYCIN HCL 1,000 MG, VIAL MATE ADAPTER 1 EACH in D5W 250 ML IV SCH ×2 (00:39→09:21)
[2020-02-19] MEDS: PERCOCET 5MG/325MG TAB PO PRN ×3 (01:35→13:44)
[2020-02-19] MEDS ORDERED: PERC5TAB12 PO ×2 (05:43→05:47)
[2020-02-19 06:00] VITALS: BP 126/67
--- NOTE | 2020-02-19 08:33 | DSES ---
DISCHARGE SUMMARY DATE OF ADMISSION: 02/16/2020 DATE OF DISCHARGE: / / BRIEF HISTORY: Harpal was admitted with a left hand laceration. It grew out Methicillin-resistant staph aureus (MRSA) from wound culture. I spoke to Danuta Araiza from orthopedic service today. She indicates that the wound looks like it is healing well and he will see PCP as an outpatient. Patient has an appointment with a hand surgeon in [place] on February 21 that was set up previously. PHYSICAL EXAMINATION: Afebrile, vital signs stable. Left hand is dressed. Lungs clear. Abdomen soft, nontender. No labs back yet. DISPOSITION: The patient is discharged home improved in stable condition. Follow up with PCP in a week. Orthopedics has discharged the patient on Augmentin 875 twice a day and Seroquel 50 mg daily p.r.n. for anxiety as well as Percocet as needed for pain. They have already made arrangements for the hand surgeon.
[2020-02-19 08:51] LABS: HEMATOCRIT 42.5 % (42.0-52.0); HEMOGLOBIN 13.4 g/dl (13.5-17.5); MEAN CORPUSCULAR HEMOGLOBIN 28.6 pg (27.0-33.0); MEAN CORPUSCULAR HGB CONC 31.5 g/dl (32.0-36.5); MEAN CORPUSCULAR VOLUME 90.6 fl (80.0-96.0); PLATELET COUNT, AUTOMATED 256 10^3/uL (150-450); RED BLOOD COUNT 4.69 10^6/uL (4.30-6.10); WHITE BLOOD COUNT 5.8 10^3/uL (4.0-10.0)
[2020-02-19 09:04] LABS: BLOOD UREA NITROGEN 10 MG/DL (7-18); CALCIUM LEVEL 8.2 MG/DL (8.5-10.1); CARBON DIOXIDE LEVEL 30 MEQ/L (21-32); CHLORIDE LEVEL 108 MEQ/L (98-107); CREATININE FOR GFR 1.01 MG/DL (0.70-1.30); GLOMERULAR FILTRATION RATE > 60.0 (>60); GLUCOSE, FASTING 94 MG/DL (70-100); POTASSIUM SERUM 4.2 MEQ/L (3.5-5.1); SODIUM LEVEL 140 MEQ/L (136-145); VANCOMYCIN LEVEL TROUGH 11.6 UG/ML (10.0-20.0)
== END 2020-02-19 14:00 | disposition home or self-care (01) | DRG 351 ==
LOC: M ED 07:34 → EDBD 07:34 → EEVIPCON 13:55 → M ED INP 13:55 → M MS5PR 16:55
PROVIDERS: ADMIT Internal Medicine; ATTEND Family Medicine
DX: S66.822A Laceration of other specified muscles, fascia and tendons at wrist and hand level, left hand, initial encounter (principal); B95.62 Methicillin resistant Staphylococcus aureus infection as the cause of diseases classified elsewhere; X58.XXXA Exposure to other specified factors, initial encounter; Y92.009 Unspecified place in unspecified non-institutional (private) residence as the place of occurrence of the external cause

== ENCOUNTER 2020-02-22 15:50 | Emergency (ER) | payer OTHER ==
[~2020-02-22] VITALS: Ht 195.6 cm; Wt 154.1 kg
[~2020-02-22 15:50] MED LIST changes: +AMOX875T2 PO; +PERC5TAB12 PO
--- NOTE | 2020-02-22 16:47 | REP ---
INDICATION: recent inj with glass, increased pain COMPARISON: 02/16/2020 TECHNIQUE: AP, lateral, bilateral oblique views left hand. FINDINGS: Evaluation is limited by overlying bandage material. No obvious acute fracture or dislocation. IMPRESSION: Limited examination. No obvious fracture or dislocation. <Electronically signed by Gama Glover > 02/22/20 [id number]
[2020-02-22] MEDS ORDERED: PERCOCET 5MG/325MG TAB PO ONE (19:00)
[2020-02-22 19:35] VITALS: BP 129/67
== END 2020-02-22 19:36 | disposition home or self-care (01) ==
LOC: M ED 15:50
DX: M79.642 Pain in left hand (principal); S66.822D Laceration of other specified muscles, fascia and tendons at wrist and hand level, left hand, subsequent encounter; X58.XXXD Exposure to other specified factors, subsequent encounter; Y92.009 Unspecified place in unspecified non-institutional (private) residence as the place of occurrence of the external cause; Y93.9 Activity, unspecified; Y99.9 Unspecified external cause status

== ENCOUNTER 2020-02-25 07:53 | Emergency (ER) | payer OTHER ==
[~2020-02-25] VITALS: Ht 195.6 cm; Wt 153.0 kg
[2020-02-25 07:53] VITALS: BP 136/80
== END 2020-02-25 10:05 | disposition left against medical advice (07) ==
LOC: M ED 07:53
DX: M79.642 Pain in left hand (principal); Z53.20 Procedure and treatment not carried out because of patient's decision for unspecified reasons; F41.9 Anxiety disorder, unspecified; F32.9 Major depressive disorder, single episode, unspecified; F20.9 Schizophrenia, unspecified; F17.200 Nicotine dependence, unspecified, uncomplicated; Z79.2 Long term (current) use of antibiotics; Z79.899 Other long term (current) drug therapy

== ENCOUNTER 2020-02-26 12:51 | Inpatient (IN) | payer MEDICAID, OTHER ==
[~2020-02-26] VITALS: Ht 195.6 cm; Wt 153.2 kg
[2020-02-26 13:39] LABS: HEMATOCRIT 44.3 % (42.0-52.0); MEAN CORPUSCULAR HEMOGLOBIN 28.3 pg (27.0-33.0); MEAN CORPUSCULAR HGB CONC 31.6 g/dl (32.0-36.5); MEAN CORPUSCULAR VOLUME 89.7 fl (80.0-96.0); PLATELET COUNT, AUTOMATED 274 10^3/uL (150-450); RED BLOOD COUNT 4.94 10^6/uL (4.30-6.10)
[2020-02-26 14:15] LABS: ACETAMINOPHEN LEVEL < 2.0 UG/ML (10.0-30.0); ALT/SGPT 36 U/L (12-78); BILIRUBIN,DIRECT 0.1 MG/DL (0.0-0.2); BILIRUBIN,TOTAL 0.3 MG/DL (0.2-1.0); BLOOD UREA NITROGEN 9 MG/DL (7-18); CALCIUM LEVEL 9.1 MG/DL (8.5-10.1); CARBON DIOXIDE LEVEL 30 MEQ/L (21-32); CHLORIDE LEVEL 109 MEQ/L (98-107); CREATININE FOR GFR 1.12 MG/DL (0.70-1.30); ETHYL ALCOHOL (ETHANOL) < 0.003 % (0.000-0.010); GLOMERULAR FILTRATION RATE > 60.0 (>60); GLUCOSE, FASTING 102 MG/DL (70-100); POTASSIUM SERUM 4.3 MEQ/L (3.5-5.1); SALICYLATE LEVEL < 1.7 MG/DL (5.0-30.0); SODIUM LEVEL 142 MEQ/L (136-145); THYROID STIMULATING HORMONE 0.809 uIU/ML (0.358-3.740); TOTAL PROTEIN 7.3 GM/DL (6.4-8.2)
[2020-02-26 15:10] LABS: AMPHETAMINES LEVEL URINE NEGATIVE (NEGATIVE); BARBITURATES URINE NEGATIVE (NEGATIVE); BENZODIAZEPINES URINE NEGATIVE (NEGATIVE); CANNABINOIDS URINE POSITIVE (NEGATIVE); COCAINE METABOLITE URINE NEGATIVE (NEGATIVE); METHADONE URINE NEGATIVE (NEGATIVE); OPIATES URINE NEGATIVE (NEGATIVE); PHENCYCLIDINE URINE NEGATIVE (NEGATIVE)
[2020-02-26] MEDS ORDERED: ACETAMINOPHEN 325 MG TAB PO ONE (21:15)
[2020-02-27] MEDS ORDERED: MOM 30ML SUSPENSION UDC PO PRN (01:30)
[2020-02-27] MEDS ORDERED: MAALOX 30 ML SUSP *UDC PO PRN (01:30)
[2020-02-27 05:56] VITALS: BP 145/90
[2020-02-27] MEDS: ACETAMINOPHEN TAB 650MG DOSE (2X325MG) PO PRN ×3 (07:36→21:18)
[2020-02-27] MEDS: NICOTINE 21MG/24HR 1 EA TRANSDERMAL TD PRN (12:37)
[2020-02-27] MEDS: OLANZapine ORAL DISINTEGRATING TAB 5MG PO PRN (13:27)
--- NOTE | 2020-02-27 15:08 | HPEPDOC ---
[facility] Medical History & Physical Date of Admission Feb 27, 2020 Date of Service: Feb 27, 2020 History and Physical CHIEF COMPLAINT: Routine medical exam HISTORY OF PRESENT ILLNESS: 24-year-old male with history of anxiety, depression, schizophrenia, recent intentional laceration on the left dorsal hand treated for cellulitis with him and as needed admitted to the inpatient mental health due to unspecified psychosis complains of discomfort in the tongue after attempted battery acid ingestion. He says, "I didn't swallow and spat it out because it burnt my t ongue." Patient denies any odynophagia, chest pain, left hand has stitches but without any purulent drainage, fever or chills. . No other complaints PAST MEDICAL HISTORY: Anxiety, depression, schizophrenia, psychosis, left hand cellulitis secondary to intentional laceration , attempted ingestion of battery acid, B12 deficiency, allergic rhinitis, childhood asthma, morbid PAST SURGICAL HISTORY: Sutures to the left hand, adenoidectomy as his ears as a child, bilateral scrotal orchidopexy 2010 SOCIAL HISTORY: Nonsmoker, Occasional alcohol use Occasional marijuana FAMILY HISTORY: Father with kidney stone alstrom's syndrome mother fibromyalgia, diabetes, paternal and maternal grandmother ALLERGIES: Please see below. REVIEW OF SYSTEMS: 12 point review of system negative aside from positive findings in HPI HOME MEDICATIONS: Please see below. PHYSICAL EXAMINATION: VITAL SIGNS: see below GENERAL APPEARANCE: No distress, disheveled, obese HEENT: Neck no vesicular or bullous lesions on the tongue CARDIOVASCULAR: Regular rate and rhythm, S1, S2 LUNGS: Clear to auscultation wheezing or rales ABDOMEN: Obese, soft, nontender, nondistended EXTREMITIES: Left hand laceration with stitches. No induration, or purulent drainage LABORATORY DATA: See below. ASSESSMENT: 24-year-old male with history of anxiety, depression, schizophrenia, recent intentional laceration on the left dorsal hand treated for cellulitis with him and as needed admitted to the inpatient mental health due to unspecified psychosis complains of discomfort in the tongue after attempted battery acid ingestion. He says, "I didn't swallow and spat it out because it burnt my tongue." Patient denies any odynophagia, chest pain, left hand has stitches but without any purulent drainage, fever or chills. . No other complaints Left hand laceration -status post stitches - treatment for cellulitis -completed antibiotics -Stitches may be removed Tongue pain -secondary to attempted battery acid ingestion. -cold water mouth rinses. psychosis/anxiety/depression/schizophrenia -per psychiatry. Hospitalist will sign off. Please reconsult for acute medical issues Vital Signs Vital Signs Date Time Temp Pulse Resp B/P (MAP) Pulse Ox O2 Delivery O2 Flow Rate FiO2 02/27/20 05:56 97.0 74 18 145/90 (108) 99 Room Air Laboratory Data Microbiology Microbiology 02/27/20 Respiratory Virus Panel (PCR) (LIZZETTE) - Final, Complete Home Medications No Active Prescriptions or Reported Meds Allergies Coded Allergies: No Known Allergies (Verified Allergy, Unknown, 02/09/20) A-FIB/CHADSVASC A-FIB History Current/History of A-Fib/PAF?: No Current PO Anticoag Therapy: No Age/Risk Factor Scoring CHADSVASC: CHADSVASC Response (Comments) Value Age Risk Factor Age < 65 years old 0 Gender Risk Factor Male 0 Hx of CHF No 0 Hx of HTN No 0 Hx of Stroke/TIA/or VTE No 0 Hx of Diabetes No 0 Hx of Vascular Disease No 0 Total 0 ETHAN ROWE MD Feb 27, 2020 15:08
[2020-02-27 16:26] VITALS: BP 134/76
[2020-02-27 19:11] LABS: BASO % 0.3 % (0.0-1.0); EOS # 0.2 10^3/uL (0.0-0.5); EOS % 3.3 % (0.0-3.0); HEMATOCRIT 39.8 % (42.0-52.0); HEMOGLOBIN 12.5 g/dl (13.5-17.5); LYMPH # 2.8 10^3/uL (1.5-5.0); LYMPH % 41.7 % (24.0-44.0); MEAN CORPUSCULAR HGB CONC 31.4 g/dl (32.0-36.5); MEAN CORPUSCULAR VOLUME 89.2 fl (80.0-96.0); MONO # 0.5 10^3/uL (0.0-0.8); MONO % 7.4 % (0.0-5.0); NEUTROPHILS # 3.2 10^3/uL (1.5-8.5); NEUTROPHILS % 47.2 % (36.0-66.0); PLATELET COUNT, AUTOMATED 251 10^3/uL (150-450); RED BLOOD COUNT 4.46 10^6/uL (4.30-6.10); WHITE BLOOD COUNT 6.7 10^3/uL (4.0-10.0)
[2020-02-27 19:39] LABS: ERYTHROCYTE SEDIMENTATION RATE 7 mm/hr (0-15)
[2020-02-27] MEDS: CEPHALEXIN 500 MG CAP PO SCH (20:46)
[2020-02-28] MEDS: CEPHALEXIN 500 MG CAP PO SCH ×5 (00:19→23:08)
[2020-02-28] MEDS: ACETAMINOPHEN TAB 650MG DOSE (2X325MG) PO PRN ×2 (04:59→11:42)
[2020-02-28 06:25] VITALS: BP 133/93
--- NOTE | 2020-02-28 10:54 | MHHPE ---
[facility] HISTORY AND PHYSICAL DATE OF ADMISSION: 02/26/2020 DATE OF EVALUATION: 02/27/2020 HISTORY OF PRESENT ILLNESS: This is one of multiple hospitalizations for this 24-year-old man who was brought to the hospital by the police. He had called 911 and complained that he had consumed battery acid from a glass and that his face was burning. When the police arrived there they could not verify this information and the Emergency Room could not find any evidence that the patient had drank any battery acid. Of note is that the patient was seen on 02/26/2020. Initially he had come to the Emergency Room complaining of pain in his hand. He had been seen twice before in the Emergency Room after he presented with a significant laceration on his hand. It was not clear if he had punched a window or accidentally cut him self, and then he had presented on 02/22/2020 after he had tried to remove some sutures and he had an infection in his hand so when he first presented on 02/26/2020 he was already exhibiting bizarre behavior but he had an appointment with the hand specialist the day after so they did not want to admit him and he left AMA. He then presented again later on 02/26/2020 after he called the police after he had consumed battery acid. The patient's mother called the Emergency Room stating that the patient had been increasingly psychotic and had been threatening to kill her and the family and that he has been using crack recently. When I saw the patient today he was a bit agitated and basically insisting that someone had put battery acid in his sanju and that that was the only reason that he was here. He was denying that he had been using any drugs. PAST PSYCHIATRIC HISTORY: This patient has a history of multiple psychiatric admissions for schizo-affective disorder versus bipolar disorder. He has had multiple admissions and he is chronically noncompliant with treatment. In addition to that, he has significant substance abuse history. The rest of his history is obtained from the records as the patient is not really cooperative. It looks like his last hospitalization was 10/28/2019 and he actually was admitted with bizarre behavior where he was harassing people and he suicidal or homicidal thoughts towards family members. He was discharged on 11/03/2019 with a diagnosis of bipolar disorder type 1, stimulant use disorder and stimulant-induced psychosis. He was discharged on Zyprexa 10 mg daily and trazodone 50 mg. The patient was treated at [facility] and I did see Dr. Garcia's note from 07/10/2018. He gave the patient a diagnosis of schizo-affective disorder bipolar type, rule out schizophrenia and cocaine use disorder and cannabis use disorder. At that time he was on Invega Sustenna 234 mg IM. He was on Cogentin 1 mg daily and trazodone 50 mg once daily at bedtime as needed insomnia. Dr. Garcia felt his symptoms are an underlying psychiatric condition and not just due to the substance abuse. According to Dr. Garcia's records he has had problems since he was [age] years old with at least one psychiatric admission at [facility] when he was 14. He has no history of actual suicidal attempts. FAMILY HISTORY: According to Dr. Garcia's note, the mother indicated the patient had a history of bipolar disorder with psychosis on the father's side of the family and that her mother has trouble with depression. SUBSTANCE ABUSE HISTORY: He has a history of using cannabis on and off and mom says more recently he has been using cocaine again. MEDICAL HISTORY: He denies having any medical problems. REVIEW OF SYSTEMS: Vital signs: Blood pressure 100/60, Pulse 80, Respirations 18 Appearance: There appears to be no apparent distress in this patient right now. Neuromuscular system: There are no involuntary movements noted and his gait is normal. All other systems are reviewed and found to be negative. MENTAL STATUS EXAM: This patient is alert and oriented times three. He is guarded. He is agitated. There is no formal thought disorder noted. He responds sometimes with questions. He has an angry mood. Affect is labile. He has paranoid delusions. He denies suicidal or homicidal ideation but the patient's mother reported the patient had been making threats towards herself and other family members. Concentration is poor. Memory is grossly intact. Insight and judgment is poor. PHYSICAL EXAMINATION: She is alert and oriented times three. Pleasant and cooperative, verbally spontaneous. Eye contact is good. Mood is good. Affect full range and appropriate. She is not psychotic, suicidal, or homicidal. Concentration and memory are good. Insight and judgment good. DIAGNOSES: 1. Schizo-affective disorder, bipolar type. 2. Stimulant use disorder (cocaine). 3. Cannabis use disorder. TREATMENT PLAN: At this point the patient is acutely psychotic, has no insight and his judgment is poor. I will restart the Zyprexa 10 mg daily but I do not know how cooperative he is going to be with that. We will continue to monitor him for psychotic symptoms and homicidal thoughts towards others and for what appears to be mood instability. MTDD
[2020-02-28 16:05] VITALS: BP 142/74
[2020-02-28 16:06] VITALS: BP 143/83
[2020-02-28] MEDS: OLANZapine ORAL DISINTEGRATING TAB 5MG PO PRN (16:38)
[2020-02-28] MEDS: traZODone 50 MG TAB PO PRN (23:08)
[2020-02-29 06:52] VITALS: BP 130/73
[2020-02-29] MEDS: CEPHALEXIN 500 MG CAP PO SCH ×3 (07:27→18:22)
[2020-02-29] MEDS: ACETAMINOPHEN TAB 650MG DOSE (2X325MG) PO PRN ×2 (08:35→18:22)
[2020-02-29] MEDS: NICOTINE 21MG/24HR 1 EA TRANSDERMAL TD PRN (12:07)
[2020-02-29 17:47] VITALS: BP 138/90
--- NOTE | 2020-02-29 19:33 | MHIPNPDOC ---
[facility] Progress Note Progress Note DATE OF SERVICE: 02/29/20 HISTORY: As per ED reports: "Patient arrived via [facility], accompanied by [employer] (which also arrested patient under 9.41). Patient reportedly dialed 911 and expressed belief that he had ingested "battery acid". Per [employer] (Officer Chad), patient alleged that he'd drank what he believed to be a glass of battery acid. He changed his account of the events leading up to the 911 call a number of times, eventually claiming to have [place] the glass [place] the [place] the apartment building where he resides). Patient's mother was advised by police of his transport here. She phoned this junior underwriter, reporting the following: Patient has been in steady decline over the last few weeks. He has become increasingly psychotic, with bizarre delusional thoughts, paranoia & even threats to kill her & other family members. Further intensifying these sx. Last evening he spent approximately 4 hours standing outdoors in front of his aunt's home, in the cold & without proper attire. Mother expressed grievous safety concerns for both the patient, and those around him". VITAL SIGNS: See below. NEW TEST RESULTS: See below CURRENT MEDICATIONS: See below. MENTAL STATUS EXAMINATION: Patient is a 24 year old male, who is alert, cooperative, disheveled. Speech: Spontaneous and fluent. Normal in r/t/v. Language skills are intact. Thought processes including: linear and coherent Thought content: positive for paranoid thoughts, he says that people have been giving him harmful things ( food or drinks). Abstract reasoning, and computation: fair. Description of associations: intact. Description of abnormal or psychotic thoughts: he denies thought delusions, but he appears paranoid. He denies SI/HI. He denies TAV hallucinations, he is not responding to internal stimuli Judgment: poor. Insight: poor. Orientation: x 3 Recent and remote memory: good. Attention span and concentration: fair. Language: adequate. Fund of knowledge: average. Mood: labile. Affect: congruent with mood. DIAGNOSES: 1. Schizo-affective disorder, bipolar type. 2. Stimulant use disorder (cocaine). 3. Cannabis use disorder. ASSESSMENT: The patient tells me that several people are trying to hurt him. He says that he is a poor young man so, he ets and drinks what other people offer him and recently he picked up a drink from the curb and he thought it was sanju but it was battery acid. He says he just tasted it, he didn't swallow it and it burnt his tongue. He tells me people hate him because he is a good [place]. MANAGEMENT PLAN: Will continue with current treatment plan TIME SPENT: 20 minutes. Vital Signs Vital Signs Date Time Temp Pulse Resp B/P (MAP) Pulse Ox O2 Delivery O2 Flow Rate FiO2 02/29/20 17:47 98.6 91 14 138/90 (106) 100 Room Air Current Medications Current Medications Medications (Trade) Dose Ordered Sig/Elinor Route PRN Reason Start Time Stop Time Status Last Admin Dose Admin Acetaminophen (Tylenol Tab) 650 mg Q6HP PRN PO HEADACHE or DISCOMFORT 02/27/20 01:30 02/29/20 08:35 Al Hydrox/Mg Hydrox/Simethicone (Mylanta) 30 ml Q4HP PRN PO HEARTBURN/INDIGESTION 02/27/20 01:30 Cephalexin Monohydrate (Keflex) 500 mg Q6H PO 02/27/20 18:00 03/05/20 12:01 02/29/20 12:07 Home Med (Med Rec Complete!) ASDIRECTED XX 02/26/20 17:30 02/26/20 17:27 DC Magnesium Hydroxide (Milk Of Magnesia) 30 ml DAILYPRN PRN PO CONSTIPATION 02/27/20 01:30 Nicotine (Nicoderm Cq 21mg) 1 patch DAILY PRN TD Nicotine Withdrawl 02/27/20 01:30 02/29/20 12:07 Olanzapine (ZyPREXA ZYDIS) 10 mg Q4HP PRN PO AGITATION/ANXIETY 02/27/20 01:30 02/28/20 16:38 Trazodone HCl (Desyrel) 50 mg QHSP PRN PO INSOMNIA 02/27/20 01:30 02/28/20 23:08 Allergies Coded Allergies: No Known Allergies (Verified Allergy, Unknown, 02/09/20) LAY JEROME MD Feb 29, 2020 18:10
[2020-02-29] MEDS: OLANZapine ORAL DISINTEGRATING TAB 5MG PO PRN (20:32)
[2020-03-01] MEDS: CEPHALEXIN 500 MG CAP PO SCH ×4 (00:04→17:19)
[2020-03-01 06:26] VITALS: BP 119/69
[2020-03-01] MEDS: ACETAMINOPHEN TAB 650MG DOSE (2X325MG) PO PRN ×2 (08:15→20:10)
[2020-03-01] MEDS: NICOTINE 21MG/24HR 1 EA TRANSDERMAL TD PRN (08:16)
[2020-03-01] MEDS: OLANZapine ORAL DISINTEGRATING TAB 5MG PO PRN ×2 (12:00→20:09)
[2020-03-01 17:00] VITALS: BP 139/79
--- NOTE | 2020-03-01 19:00 | MHIPNPDOC ---
[facility] Progress Note Progress Note DATE OF SERVICE: 03/01/20 HISTORY: As per ED reports: "Patient arrived via [facility], accompanied by [employer] (which also arrested patient under 9.41). Patient reportedly dialed 911 and expressed belief that he had ingested "battery acid". Per [employer] (Officer Chad), patient alleged that he'd drank what he believed to be a glass of battery acid. He changed his account of the events leading up to the 911 call a number of times, eventually claiming to have thrown the glass [place] the [place] the apartment building where he resides). Patient's mother was advised by police of his transport here. She phoned this field underwriter, reporting the following: Patient has been in steady decline over the last few weeks. He has become increasingly psychotic, with bizarre delusional thoughts, paranoia & even threats to kill her & other family members. Further intensifying these sx. Last evening he spent approximately 4 hours standing outdoors in front of his aunt's home, in the cold & without proper attire. Mother expressed grievous safety concerns for both the patient, and those around him". VITAL SIGNS: See below. NEW TEST RESULTS: See below CURRENT MEDICATIONS: See below. MENTAL STATUS EXAMINATION: Patient is a 24 year old male, who is alert, cooperative, disheveled. Speech: Spontaneous, fluent, loud. Fowl language Language skills are intact Thought processes including: circumstantial, disorganized Thought content: positive for paranoid delusions, he thinks people are trying to harm him, trying to kill him. Denies SI/HI. Description of associations: fair Description of abnormal or psychotic thoughts: He denies TAV hallucinations, he was not responding to internal stimuli. Judgment: poor. Insight: poor. Orientation: x 3 Recent and remote memory: good. Attention span and concentration: fair. Language: adequate. Fund of knowledge: average. Mood: labile, irritable. Affect: congruent with mood. DIAGNOSES: 1. Schizo-affective disorder, bipolar type. 2. Stimulant use disorder (cocaine). 3. Cannabis use disorder. ASSESSMENT: The patient is very angry today. He is very paranoid, he says he called his mother and she didn't respond. He says he will apoorva the hospital, he says people want to poison him, he says that he only wants to leave the Unit. Will start him on Invega 3 mgs PO QHS MANAGEMENT PLAN: Will continue with current treatment plan TIME SPENT: 20 minutes. Vital Signs Vital Signs Date Time Temp Pulse Resp B/P (MAP) Pulse Ox O2 Delivery O2 Flow Rate FiO2 03/01/20 06:26 97.4 69 14 119/69 (86) 99 Room Air Current Medications Current Medications Medications (Trade) Dose Ordered Sig/Elinor Route PRN Reason Start Time Stop Time Status Last Admin Dose Admin Acetaminophen (Tylenol Tab) 650 mg Q6HP PRN PO HEADACHE or DISCOMFORT 02/27/20 01:30 03/01/20 08:15 Al Hydrox/Mg Hydrox/Simethicone (Mylanta) 30 ml Q4HP PRN PO HEARTBURN/INDIGESTION 02/27/20 01:30 Cephalexin Monohydrate (Keflex) 500 mg Q6H PO 02/27/20 18:00 03/05/20 12:01 03/01/20 17:19 Home Med (Med Rec Complete!) ASDIRECTED XX 02/26/20 17:30 02/26/20 17:27 DC Magnesium Hydroxide (Milk Of Magnesia) 30 ml DAILYPRN PRN PO CONSTIPATION 02/27/20 01:30 Nicotine (Nicoderm Cq 21mg) 1 patch DAILY PRN TD Nicotine Withdrawl 02/27/20 01:30 03/01/20 08:16 Olanzapine (ZyPREXA ZYDIS) 10 mg Q4HP PRN PO AGITATION/ANXIETY 02/27/20 01:30 03/01/20 12:00 Trazodone HCl (Desyrel) 50 mg QHSP PRN PO INSOMNIA 02/27/20 01:30 02/28/20 23:08 Allergies Coded Allergies: No Known Allergies (Verified Allergy, Unknown, 02/09/20) LAY JEROME MD Mar 01, 2020 17:53
[2020-03-01] MEDS: PALIPERIDONE 3 MG ER TAB (INVEGA) PO SCH (21:00)
[2020-03-02] MEDS: CEPHALEXIN 500 MG CAP PO SCH ×5 (01:09→23:00)
[2020-03-02 06:28] VITALS: BP 135/86
[2020-03-02] MEDS: ACETAMINOPHEN TAB 650MG DOSE (2X325MG) PO PRN ×3 (08:04→23:00)
[2020-03-02] MEDS: NICOTINE 21MG/24HR 1 EA TRANSDERMAL TD PRN (12:28)
--- NOTE | 2020-03-02 13:14 | MHIPN ---
[facility] PROGRESS NOTE DATE: 02/28/2020 HISTORY OF PRESENT ILLNESS: The patient today tells me that he is feeling "better." He tells me that he is feeling more "clear headed" and he tells me that he slept good. I think that he is still being pretty guarded and does not seem to have much insight about what happened prior to his admission and he does still think that he consumed battery acid. MENTAL STATUS EXAM: This patient was alert and oriented times 3, pleasant and cooperative. He is more verbally spontaneous today, but again he is guarded. There is no formal thought disorder noted. He says he is feeling better. His affect is constricted, but appropriate. He remains psychotic. He is not suicidal or homicidal. Concentration is fair. Memory intact. Insight and judgment is poor. DIAGNOSES: 1. Schizoaffective disorder bipolar type. 2. Stimulant use disorder (cocaine). 3. Cannabis use disorder. TREATMENT PLAN: At this point we will continue to titrate his medications as indicated.
--- NOTE | 2020-03-02 16:28 | MHIPNPDOC ---
[facility] Progress Note Progress Note DATE OF SERVICE: 03/02/20 HISTORY: As per ED reports: "Patient arrived via [facility], accompanied by [employer] (which also arrested patient under 9.41). Patient reportedly dialed 911 and expressed belief that he had ingested "battery acid". Per [employer] (Officer Chad), patient alleged that he'd drank what he believed to be a glass of battery acid. He changed his account of the events leading up to the 911 call a number of times, eventually claiming to have [place] the glass [place] the [place] the apartment building where he resides). Patient's mother was advised by police of his transport here. She phoned this card writer hand, reporting the following: Patient has been in steady decline over the last few weeks. He has become increasingly psychotic, with bizarre delusional thoughts, paranoia & even threats to kill her & other family members. Further intensifying these sx. Last evening he spent approximately 4 hours standing outdoors in front of his aunt's home, in the cold & without proper attire. Mother expressed grievous safety concerns for both the patient, and those around him". VITAL SIGNS: See below. NEW TEST RESULTS: See below CURRENT MEDICATIONS: See below. MENTAL STATUS EXAMINATION: Patient is a 24 year old male, who is alert, cooperative, disheveled, he has a laceration next to his mouth Speech: Spontaneous, fluent, normal in r/t/v. Language skills are intact Thought processes including: more organized. Thought content: Denies SI/HI. He seems a little bit less paranoid today. Description of associations: fair Description of abnormal or psychotic thoughts: He denies TAV hallucinations, he was not responding to internal stimuli. Judgment: improving Insight: improving Orientation: x 3 Recent and remote memory: good. Attention span and concentration: fair. Language: adequate. Fund of knowledge: average. Mood: euthymic . Affect: congruent with mood. DIAGNOSES: 1. Schizo-affective disorder, bipolar type. 2. Stimulant use disorder (cocaine). 3. Cannabis use disorder. ASSESSMENT: will continue on the same medications. He seems to be responding to it. MANAGEMENT PLAN: Will continue with current treatment plan TIME SPENT: 20 minutes. Vital Signs Vital Signs Date Time Temp Pulse Resp B/P (MAP) Pulse Ox O2 Delivery O2 Flow Rate FiO2 03/02/20 06:28 98.6 78 16 135/86 (102) 98 Room Air Current Medications Current Medications Medications (Trade) Dose Ordered Sig/Elinor Route PRN Reason Start Time Stop Time Status Last Admin Dose Admin Acetaminophen (Tylenol Tab) 650 mg Q6HP PRN PO HEADACHE or DISCOMFORT 02/27/20 01:30 03/02/20 08:04 Al Hydrox/Mg Hydrox/Simethicone (Mylanta) 30 ml Q4HP PRN PO HEARTBURN/INDIGESTION 02/27/20 01:30 Cephalexin Monohydrate (Keflex) 500 mg Q6H PO 02/27/20 18:00 03/05/20 12:01 03/02/20 12:28 Home Med (Med Rec Complete!) ASDIRECTED XX 02/26/20 17:30 02/26/20 17:27 DC Magnesium Hydroxide (Milk Of Magnesia) 30 ml DAILYPRN PRN PO CONSTIPATION 02/27/20 01:30 Nicotine (Nicoderm Cq 21mg) 1 patch DAILY PRN TD Nicotine Withdrawl 02/27/20 01:30 03/02/20 12:28 Olanzapine (ZyPREXA ZYDIS) 10 mg Q4HP PRN PO AGITATION/ANXIETY 02/27/20 01:30 03/01/20 20:09 Paliperidone (Invega) 3 mg QHS PO 03/01/20 21:00 Trazodone HCl (Desyrel) 50 mg QHSP PRN PO INSOMNIA 02/27/20 01:30 02/28/20 23:08 Allergies Coded Allergies: No Known Allergies (Verified Allergy, Unknown, 02/09/20) LAY JEROME MD Mar 02, 2020 16:28
[2020-03-02 17:55] VITALS: BP 128/86
[2020-03-02] MEDS: traZODone 50 MG TAB PO PRN (20:45)
[2020-03-02] MEDS: PALIPERIDONE 3 MG ER TAB (INVEGA) PO SCH (20:46)
[2020-03-03] MEDS: CEPHALEXIN 500 MG CAP PO SCH ×3 (05:48→17:06)
[2020-03-03] MEDS: ACETAMINOPHEN TAB 650MG DOSE (2X325MG) PO PRN ×3 (08:22→20:29)
[2020-03-03] MEDS: NICOTINE 21MG/24HR 1 EA TRANSDERMAL TD PRN (13:02)
--- NOTE | 2020-03-03 16:13 | IPNPDOC ---
Text Note Date of Service The patient was seen on 03/03/20. NOTE Subjective: Patient is 24-year-old male with PMHx of Anxiety / Depression, Schizophrenia and a recent laceration (that he reports is from an accidental window break). Patient was admitted to the inpatient mental health unit for unspecified psychos is under the care of psychiatry. Hospitalist service was called initially for medical screening evaluation on 02/26. I was called to evaluate the patient again for left hand pain. Patient was seen and examined at the bedside. Patient denies any significant drainage, redness or warmth around his left hand incision site. His sutures have been removed. Patient did report some drainage yesterday, however, does not appear to have any evidence of changes morning. Patient appears to have sensation intact of his left hand with capillary refill noted. Objective: Vitals (See below) General: Lying in bed, appears comfortable, AAOx3 HEENT: NC, AT CVS: RRR, +S1S2 Lungs: Fair air entry b/l, no appreciable wheezing, rhonchi or rales Abdomen: Soft, nondistended and nontender Extremities: - Edema, - Calf tenderness; left hand with healed incision on the dorsal surface status post sutures; no significant induration, warmth or redness noted. No drainage was elicited Assessment and plan: Left hand pain - likely 2/2 inflammation; less likely 2/2 infectious etiology - Patient reports that he's been expressing hand pain since he has arrived - Physical does not reveal any significant evidence of cellulitis; no appreciable fluid collection - Wound culture 02/26: MRSA - Patient is currently on Cephalexin - Will check CBC, CMP, CRP - Will adjust antibiotics to Bactrim for MRSA coverage (once BMP results) - Will place nursing order for warm / cold compresses - c/w Tylenol PRN Female regulatory scientist was present throughout the duration of this history and physical examination Thank you for this consultation. Hospital service will now sign off. Please reconsult as needed VS,Fishbone, I+O VS, Fishbone, I+O Vital Signs Date Time Temp Pulse Resp B/P (MAP) Pulse Ox O2 Delivery O2 Flow Rate FiO2 03/02/20 17:55 97.9 110 18 128/86 (100) 100 03/02/20 06:28 Room Air SAMI HERCULES MD Mar 03, 2020 16:12
[2020-03-03] MEDS: OLANZapine ORAL DISINTEGRATING TAB 5MG PO PRN (17:06)
--- NOTE | 2020-03-03 17:39 | MHIPNPDOC ---
[facility] Progress Note Progress Note DATE OF SERVICE: 03/03/20 HISTORY: As per ED reports: "Patient arrived via [facility], accompanied by [employer] (which also arrested patient under 9.41). Patient reportedly dialed 911 and expressed belief that he had ingested "battery acid". Per [employer] (Officer Chad), patient alleged that he'd drank what he believed to be a glass of battery acid. He changed his account of the events leading up to the 911 call a number of times, eventually claiming to have [place] the glass [place] the [place] the apartment building where he resides). Patient's mother was advised by police of his transport here. She phoned this bond underwriter, reporting the following: Patient has been in steady decline over the last few weeks. He has become increasingly psychotic, with bizarre delusional thoughts, paranoia & even threats to kill her & other family members. Further intensifying these sx. Last evening he spent approximately 4 hours standing outdoors in front of his aunt's home, in the cold & without proper attire. Mother expressed grievous safety concerns for both the patient, and those around him". Interval Story: He says that h feels better. he says he has been taking zyprexa and when he takes it, he feels better. he admits that he has been using way too many drugs during the last year and he says that his psychosis was secondary to this problem although he doesn't deny having a mental illness. He says he has not wanted to take medications because he took psychiatric medications, he says, SSRI's, since he was a young boy and they made him gain weight. He says he has been anxious or irritable at times because other patients are getting on his nerves but he has been able to keep in control of his emtions except for yesterday when he yelled at a patient because she kept talking very loud when he was trying to talk to his mother over the phone. He says that if he gets discharged he will go to his apartment. he lives by himself but his moher comes visit him during the week. He says he wants to leave that building because there's a lot of people who use drugs in there. VITAL SIGNS: See below. NEW TEST RESULTS: See below CURRENT MEDICATIONS: See below. MENTAL STATUS EXAMINATION: Patient is a 24 year old male, who is alert, cooperative, disheveled, he has a laceration next to his mouth Speech: Spontaneous, fluent, normal in r/t/v. Language skills are intact Thought processes including: organized, coherent Thought content: Denies SI/HI. Denies thought delusions Description of associations: intact Description of abnormal or psychotic thoughts: He denies TAV hallucinations, he was not responding to internal stimuli. Judgment: improving Insight: improving Orientation: x 3 Recent and remote memory: good. Attention span and concentration: fair. Language: adequate. Fund of knowledge: average. Mood: euthymic . Affect: congruent with mood. DIAGNOSES: 1. Schizo-affective disorder, bipolar type. 2. Stimulant use disorder (cocaine). 3. Cannabis use disorder. ASSESSMENT: he could be discharged home tomorrow if he continues to be stable. I will discharge him home with a script for Zyprexa, not PRN but scheduled, because he says he likes it and it makes him feel good. MANAGEMENT PLAN: Will continue with current treatment plan TIME SPENT: 20 minutes. Vital Signs Vital Signs Date Time Temp Pulse Resp B/P (MAP) Pulse Ox O2 Delivery O2 Flow Rate FiO2 03/02/20 17:55 97.9 110 18 128/86 (100) 100 03/02/20 06:28 Room Air Current Medications Current Medications Medications (Trade) Dose Ordered Sig/Elinor Route PRN Reason Start Time Stop Time Status Last Admin Dose Admin Acetaminophen (Tylenol Tab) 650 mg Q6HP PRN PO HEADACHE or DISCOMFORT 02/27/20 01:30 03/03/20 14:29 Al Hydrox/Mg Hydrox/Simethicone (Mylanta) 30 ml Q4HP PRN PO HEARTBURN/INDIGESTION 02/27/20 01:30 Cephalexin Monohydrate (Keflex) 500 mg Q6H PO 02/27/20 18:00 03/05/20 12:01 03/03/20 12:03 Home Med (Med Rec Complete!) ASDIRECTED XX 02/26/20 17:30 02/26/20 17:27 DC Magnesium Hydroxide (Milk Of Magnesia) 30 ml DAILYPRN PRN PO CONSTIPATION 02/27/20 01:30 Nicotine (Nicoderm Cq 21mg) 1 patch DAILY PRN TD Nicotine Withdrawl 02/27/20 01:30 03/03/20 13:02 Olanzapine (ZyPREXA ZYDIS) 10 mg Q4HP PRN PO AGITATION/ANXIETY 02/27/20 01:30 03/01/20 20:09 Paliperidone (Invega) 3 mg QHS PO 03/01/20 21:00 Trazodone HCl (Desyrel) 50 mg QHSP PRN PO INSOMNIA 02/27/20 01:30 03/02/20 20:45 Allergies Coded Allergies: No Known Allergies (Verified Allergy, Unknown, 02/09/20) LAY JEROME MD Mar 03, 2020 16:07
[2020-03-03 18:00] VITALS: BP 140/96
[2020-03-03 19:27] LABS: BASO % 0.4 % (0.0-1.0); EOS # 0.3 10^3/uL (0.0-0.5); EOS % 5.2 % (0.0-3.0); HEMOGLOBIN 13.7 g/dl (13.5-17.5); LYMPH # 1.9 10^3/uL (1.5-5.0); MEAN CORPUSCULAR HGB CONC 31.9 g/dl (32.0-36.5); MEAN CORPUSCULAR VOLUME 91.1 fl (80.0-96.0); MONO # 0.4 10^3/uL (0.0-0.8); MONO % 7.1 % (0.0-5.0); NEUTROPHILS % 53.3 % (36.0-66.0); PLATELET COUNT, AUTOMATED 241 10^3/uL (150-450); RED BLOOD COUNT 4.72 10^6/uL (4.30-6.10); WHITE BLOOD COUNT 5.5 10^3/uL (4.0-10.0)
[2020-03-03 19:57] LABS: BLOOD UREA NITROGEN 15 MG/DL (7-18); C REACTIVE PROTEIN QUANTITATIV 0.51 MG/DL (0.00-0.30); CALCIUM LEVEL 8.7 MG/DL (8.5-10.1); CARBON DIOXIDE LEVEL 32 MEQ/L (21-32); CHLORIDE LEVEL 106 MEQ/L (98-107); CREATININE FOR GFR 1.16 MG/DL (0.70-1.30); GLOMERULAR FILTRATION RATE > 60.0 (>60); GLUCOSE, FASTING 93 MG/DL (70-100); POTASSIUM SERUM 4.2 MEQ/L (3.5-5.1); SODIUM LEVEL 141 MEQ/L (136-145)
[2020-03-03] MEDS: PALIPERIDONE 3 MG ER TAB (INVEGA) PO SCH (20:30)
[2020-03-03] MEDS: traZODone 50 MG TAB PO PRN (21:25)
[2020-03-03] MEDS: BACTRIM 160MG/800MG DS TAB PO SCH (23:06)
[2020-03-04 06:14] VITALS: BP 134/88
[2020-03-04] MEDS: BACTRIM 160MG/800MG DS TAB PO SCH (08:09)
[2020-03-04] MEDS: ACETAMINOPHEN TAB 650MG DOSE (2X325MG) PO PRN ×2 (08:10→14:15)
[2020-03-04] MEDS: NICOTINE 21MG/24HR 1 EA TRANSDERMAL TD PRN (08:10)
[2020-03-04] MEDS: OLANZapine ORAL DISINTEGRATING TAB 5MG PO PRN (11:40)
[2020-03-04] MEDS ORDERED: ZYPR10TA PO (15:45)
[2020-03-04] MEDS ORDERED: NICO21PAT TD (15:45)
[2020-03-04] MEDS ORDERED: TRAZ-252 PO (15:45)
[2020-03-04] MEDS ORDERED: SULF1TAB93 PO (15:47)
--- NOTE | 2020-03-04 19:57 | MHDSPDOC ---
[facility] Discharge Summary Discharge Summary DATE OF ADMISSION: Feb 26, 2020 at 12:52 DATE OF DISCHARGE: 03/04/2020 DISCHARGE DIAGNOSES: 1. Schizo-affective disorder, bipolar type. 2. Stimulant use disorder (cocaine). 3. Cannabis use disorder. REASON FOR ADMISSION: As per ED report: "Patient arrived via [facility], accompanied by [employer] (which also arrested patient under 9.41). Patient reportedly dialed 911 and expressed belief that he had ingested "battery acid". Per [employer] (Officer Chad), patient alleged that he'd drank what he believed to be a glass of battery acid. He changed his account of the events leading up to the 911 call a number of times, eventually claiming to have thrown the glass [place] the [place] the apartment building where he resides). Patient's mother was advised by police of his transport here. She phoned this mortgage underwriter, reporting the following: Patient has been in steady decline over the last few weeks. He has become increasingly psychotic, with bizarre delusional thoughts, paranoia & even threats to kill her & other family members. Further intensifying these sx. Last evening he spent approximately 4 hours standing outdoors in front of his aunt's home, in the cold & without proper attire.Mother expressed grievous safety concerns for both the patient, and those around him." CONSULTANTS INVOLVED: Dr. Gilmer Torres TREATMENT AND PROGRESS ON THE UNIT : the patient presented with bizarre delusions where he was saying that in his neighborhood someone left a drink for him on the curb and he thought it was sanju. He said that instead he had drank battery acid ( when he was evaluated at the ED they couldn't find any evidence that he would have drank battery acid). As this mortgage underwriter asked him if he had felt any pain as he ingested it, he said that he never drank it, he just tried it and it had burnt his tongue. Then he said that some of that acid had caused a lac eration on the right side of his face, next to his mouth and chin. He said he wanted to leave that neighborhood because "there were mean people in my neighborhood that want to kill me.... I don't know why..." As he started feeling better he said that he also had responsibility in all what had happened because he had been abusing substances that he gets from some of his neighbors and friends. He thought he had not been suing drugs and or liquor for one year but then he realized he was positive for marijuana by the time of his admission. He was reluctant to take medications because, he said that since a very young age he had taken SSRI's and that these medication had cause him gain weight. Finally he accepted taking Zyprexa that had been prescribed to him since his admission but he took it only when he wanted it, usually once a day. He says he had liked the way this medication was making him feel and that he would be taking it upon discharge. He was not suicidal and not homicidal but his mood was labile at the beginning with periods of expansive mood followed by irritable mood. Since y , his mood showed improvement, he has been stable and his thoughts have been negative for SI/HI/thought delusions. He has been coherent, goal directed, optimistic. HOSPITAL COURSE: As above DISCHARGE ASSESSMENT: The patient was not in danger to self or others at the time of his discharge, he was future orientated, he had plans for the future, was motivated to go to [facility] for his substance abuse problem and for his psychiatric problem too. MENTAL STATUS EXAMINATION ON DISCHARGE: Patient is a 24 year old male, who is alert, cooperative, disheveled, he has a laceration next to his mouth Speech: Spontaneous, fluent, normal in r/t/v. Language skills are intact Thought processes including: organized, coherent Thought content: Denies SI/HI. Denies thought delusions Description of associations: intact Description of abnormal or psychotic thoughts: He denies TAV hallucinations, he was not responding to internal stimuli. Judgment: improving Insight: improving Orientation: x 3 Recent and remote memory: good. Attention span and concentration: fair. Language: adequate. Fund of knowledge: average. Mood: euthymic . Affect: congruent with mood. DIAGNOSES: 1. Schizo-affective disorder, bipolar type. 2. Stimulant use disorder (cocaine). 3. Cannabis use disorder. MEDICATIONS ON DISCHARGE: Scheduled Olanzapine (Zyprexa) 10 Mg Tablet, 10 MG PO DAILY for psychosis for 7 Days, #7 Sulfamethoxazole/Trimethoprim (Sulfamethoxazole-Tmp Ds Tablet) 1 Each Tablet, 1 TAB PO BID for soft tissue infection, #14 Scheduled PRN Nicotine (Nicotine Patch) 21 Mg Patch.td24, 1 PATCH TD DAILY PRN for Nicotine Withdrawl , #7 Trazodone HCl (Trazodone HCl) 50 Mg Tablet, 50 MG PO QHSP PRN for INSOMNIA, #7 PLAN/FOLLOWUP ARRANGEMENTS: Follow Up Care Education Label * Mental Health Appt 1 * [facility] * Established With This Provider Yes * Therapist GERBER * Date Mar 09, 2020 * Time 10:30 * Address of Clinic or Practice [address] [facility] * Follow Up Care Education Label * Mental Health Appt 2 * [facility] * Established With This Provider Yes * Therapist TAD * Date Mar 30, 2020 * Time 11:00 * Address of Clinic or Practice [address] [facility] * Follow Up Care Education Label * Medical * Medical Follow Up [facility] * Established With This Provider No NEW PATIENT * Therapist KALEIGH * Date Mar 18, 2020 * Time 15:40 * Address of Clinic or Practice [address] [facility] * * Additional information WILL CONTACT PATIENT IF THEY CAN ARRANGE A SOONER APPOINTMENT. The amount of time spent in the coordination of care for this patient was approximately minutes. Vital Signs/I&Os Vital Signs Date Time Temp Pulse Resp B/P (MAP) Pulse Ox O2 Delivery O2 Flow Rate FiO2 03/04/20 06:14 97.5 69 18 134/88 (103) 99 03/02/20 06:28 Room Air Laboratory Data Labs 24H Laboratory Tests 2 03/03/20 18:50: Immature Granulocyte % (Auto) 0.0, Neutrophils (%) (Auto) 53.3, Lymphocytes (%) (Auto) 34.0, Monocytes (%) (Auto) 7.1H, Eosinophils (%) (Auto) 5.2H, Basophils (%) (Auto) 0.4, Neutrophils # (Auto) 3.0, Lymphocytes # (Auto) 1.9, Monocytes # (Auto) 0.4, Eosinophils # (Auto) 0.3, Basophils # (Auto) 0.0, Nucleated Red Blood Cells % (auto) 0.0, Anion Gap 3L, Glomerular Filtration Rate > 60.0, Calcium Level 8.7, C-Reactive Protein, Quantitative 0.51H CBC/BMP Laboratory Tests 03/03/20 18:50 Microbiology Microbiology 02/27/20 Gram Stain - Final, Complete 02/27/20 Wound Culture - Final, Complete Staph.aureus Methicillin Resis 02/27/20 Respiratory Virus Panel (PCR) (LIZZETTE) - Final, Complete Medications Scheduled Olanzapine (Zyprexa) 10 Mg Tablet, 10 MG PO DAILY for psychosis for 7 Days, #7 Sulfamethoxazole/Trimethoprim (Sulfamethoxazole-Tmp Ds Tablet) 1 Each Tablet, 1 TAB PO BID for soft tissue infection, #14 Scheduled PRN Nicotine (Nicotine Patch) 21 Mg Patch.td24, 1 PATCH TD DAILY PRN for Nicotine Withdrawl , #7 Trazodone HCl (Trazodone HCl) 50 Mg Tablet, 50 MG PO QHSP PRN for INSOMNIA, #7 Allergies Coded Allergies: No Known Allergies (Verified Allergy, Unknown, 02/09/20) LAY JEROME MD Mar 04, 2020 15:36
== END 2020-03-04 17:00 | disposition home or self-care (01) | DRG 750 ==
LOC: EDBD 12:51 → EDSEX 12:51 → M ED 12:51 → M ED INP 12:52 → M PSY 02-27 05:53
PROVIDERS: ADMIT Psychiatry & Neurology Psychiatry; ATTEND Psychiatry & Neurology Psychiatry
DX: F25.0 Schizoaffective disorder, bipolar type (principal); F12.90 Cannabis use, unspecified, uncomplicated; F15.90 Other stimulant use, unspecified, uncomplicated; F14.90 Cocaine use, unspecified, uncomplicated

== ENCOUNTER 2020-03-11 15:17 | Emergency (ER) | payer MEDICAID, OTHER ==
[~2020-03-11] VITALS: Ht 195.6 cm; Wt 153.5 kg
[~2020-03-11 15:17] MED LIST changes: +QUET50TA3 PO; -QUET5TAB PO; +SULF1TAB93 PO; +ZYPR10TA PO
[2020-03-11] MEDS ORDERED: OLAN10TA2 (15:27)
[2020-03-11] MEDS ORDERED: TRAM50TA2 PO (16:44)
[2020-03-11] MEDS ORDERED: traMADol 50 MG TAB PO ONE (16:45)
[2020-03-11 16:58] VITALS: BP 132/95
== END 2020-03-11 16:58 | disposition home or self-care (01) ==
LOC: M ED 15:17
DX: M79.602 Pain in left arm (principal)

== ENCOUNTER 2020-03-17 16:19 | Emergency (ER) | payer OTHER ==
[~2020-03-17] VITALS: Ht 195.6 cm; Wt 155.0 kg
[~2020-03-17 16:19] MED LIST changes: +OLAN10TA2; -QUET50TA3 PO; +QUET5TAB PO; +TRAM50TA2 PO
[2020-03-17 16:21] VITALS: BP 137/82
--- OUTSIDE RECORDS SUMMARY | 2020-03-17 16:35 | CCD ---
Author Organization Unknown Address [address] [place] [address] Phone [phone] Care Team Providers Care Social Problems Specialist Name Role Phone Stefanie Wilson Unavailable Unavailable Allergies None recorded. Medications Name Status Start Date Stop Date albuterol sulfate HFA 90 mcg/actuation a erosol inhaler INHALE TWO PUFFS BY MOUTH EVERY 4 6 HOURS FOR WHEEZING Active Not available amoxicillin 875 mg-potassium clavulanate 125 mg tablet TAKE ONE TABLET BY MOUTH TWICE A DAY Active No t available benzonatate 200 mg capsule TAKE ONE TABLET BY MOUTH THREE TIMES A DAY NEEDED FOR COUGH MAXIMUM DAILY DOSE 3 Active Not available benztropine 0.5 mg tablet TAKE ONE TABLET BY MOUTH EVERY DAY Active Not available cephalexin 500 mg capsule TAKE ONE CAPSULE BY MOUTH THREE TIMES A DAY FOR 10 DAYS Active Not available cholecalciferol (vitamin D3) 25 mcg (1,0 00 unit) tablet TAKE ONE TABLET BY MOUTH EVERY DAY Active Not available doxycycline monohydrate 100 mg capsule TAKE ONE CAPSULE BY MOUTH TWICE A DAY FOR 10 DAYS Active Not available mupirocin 2 % topical ointment APPLY THREE TIMES A DAY FOR 7 DAYS Active Not available nicotine (polacrilex) 2 mg gum CHEW 1 PIECE EVERY 2 HOURS NEEDED FOR NICOTINE WITHDRAWAL Active Not available nicotine 21 mg/24 hr daily transdermal patch Active Not available Nicotrol 10 mg inhalation cartridge INHALE 1 PUFF EVERY HOUR NEEDED FOR SMOKING CESSATION MAXIMUM DAILY DOSE 12 Active Not available olanzapine 10 mg tablet TAKE ONE TABLET BY MOUTH EVERY DAY Active Not available olanzapine 5 mg disintegrating tablet DISSOLVE ONE TABLET UNDER THE TONGUE EVERY EVENING Active Not available omeprazole 40 mg capsule,delayed release TAKE ONE CAPSULE BY MOUTH EVERY DAY Active Not available oxycodone-acetaminophen 5 mg-325 mg tabl et TAKE ONE TO TWO TABLETS BY MOUTH EVERY 4 HOURS NEEDED FOR PAIN MAXIMUM DAILY DOSE 8 Active Not available quetiapine 50 mg tablet TAKE ONE TABLET BY MOUTH EVERY DAY NEEDED FOR ANXIETY FOR UP TO 30 DOSES Active Not available sulfamethoxazole 800 mg-trimethoprim 160 mg tablet TAKE ONE TABLET BY MOUTH TWICE A DAY Active No t available trazodone 50 mg tablet TAKE ONE TABLET BY MOUTH AT BEDTIME NEEDED FOR INSOMNIA Active Not available vitamin d3 25 mcg (1000 ut) tabs Active Not available Problems None recorded. Procedures None recorded. Results Lab Results Date Name Specimen Result Interpretation Description Value Range Status Address 02/09/2020 SARS CoV 2 RNA, QL, Nasopharynx NASOPHARYNX No observation recorded. [facility]: [address] [facility] Past Encounters 03/10/2020 Severe Recurrent Major Depression with Psychotic Features Cheyenne Yang, [facility]: [address] [place] [id number], Ph. Social History None recorded. Vaccine List None recorded. Plan of Care Reminders Provider Appointments None recorded. Lab None recorded. Referral None recorded. Procedures None recorded. Surgeries None recorded. Imaging None recorded. Vitals None recorded.
--- OUTSIDE RECORDS SUMMARY | 2020-03-17 16:35 | CCD ---
Author Author [facility] Organization [facility] Address Unknown Phone Unavailable Care Team Providers Care Portfolio Specialist Name Role Phone KULWINDER PRAJAPATI Unavailable Unavailable LAROCK, Rebecca DOUGLAS COMPLIANCE AND CONTROL ANALYST Unavailable Unavailable LAROCK, Rebecca DOUGLAS COMPLIANCE AND CONTROL ANALYST Unavailable Unavailable LAROCK, Rebecca DOUGLAS COMPLIANCE AND CONTROL ANALYST Unavailable Unavailable LAROCK, Rebecca DOUGLAS COMPLIANCE AND CONTROL ANALYST Unavailable Unavailable LAROCK, Rebecca DOUGLAS COMPLIANCE AND CONTROL ANALYST Unavailable Unavailable LAROCK, Rebecca DOUGLAS COMPLIANCE AND CONTROL ANALYST Unavailable Unavailable LAROCK, Rebecca DOUGLAS COMPLIANCE AND CONTROL ANALYST Unavailable Unavailable LAROCK, Rebecca DOUGLAS COMPLIANCE AND CONTROL ANALYST Unavailable Unavailable LAROCK, Rebecca DOUGLAS COMPLIANCE AND CONTROL ANALYST Unavailable Unavailable LAROCK, Rebecca DOUGLAS COMPLIANCE AND CONTROL ANALYST Unavailable Unavailable LAROCK, Rebecca DOUGLAS COMPLIANCE AND CONTROL ANALYST Unavailable Unavailable LAROCK, Rebecca DOUGLAS COMPLIANCE AND CONTROL ANALYST Unavailable Unavailable LAROCK, Rebecca DOUGLAS COMPLIANCE AND CONTROL ANALYST Unavailable Unavailable LAROCK, Rebecca DOUGLAS COMPLIANCE AND CONTROL ANALYST Unavailable Unavailable LAROCK, Rebecca DOUGLAS COMPLIANCE AND CONTROL ANALYST Unavailable Unavailable LAROCK, Rebecca DOUGLAS COMPLIANCE AND CONTROL ANALYST Unavailable Unavailable LAROCK, Rebecca DOUGLAS COMPLIANCE AND CONTROL ANALYST Unavailable Unavailable LAROCK, Rebecca DOUGLAS COMPLIANCE AND CONTROL ANALYST Unavailable Unavailable LAROCK, Rebecca DOUGLAS COMPLIANCE AND CONTROL ANALYST Unavailable Unavailable LAROCK, Rebecca DOUGLAS COMPLIANCE AND CONTROL ANALYST Unavailable Unavailable LAROCK, Rebecca DOUGLAS COMPLIANCE AND CONTROL ANALYST Unavailable Unavailable TREJO, R ADRIANE COMPLIANCE AND CONTROL ANALYST Unavailable Unavailable TREJO, R ADRIANE COMPLIANCE AND CONTROL ANALYST Unavailable Unavailable TREJO, R ADRIANE COMPLIANCE AND CONTROL ANALYST Unavailable Unavailable TREJO, R ADRIANE COMPLIANCE AND CONTROL ANALYST Unavailable Unavailable TREJO, R ADRIANE COMPLIANCE AND CONTROL ANALYST Unavailable Unavailable TREJO, R ADRIANE COMPLIANCE AND CONTROL ANALYST Unavailable Unavailable TREJO, R ADRIANE COMPLIANCE AND CONTROL ANALYST Unavailable Unavailable TREJO, R ADRIANE COMPLIANCE AND CONTROL ANALYST Unavailable Unavailable TREJO, R ADRIANE COMPLIANCE AND CONTROL ANALYST Unavailable Unavailable TREJO, R ADRIANE COMPLIANCE AND CONTROL ANALYST Unavailable Unavailable TREJO, R ADRIANE COMPLIANCE AND CONTROL ANALYST Unavailable Unavailable TREJO, R ADRIANE COMPLIANCE AND CONTROL ANALYST Unavailable Unavailable TREJO, R ADRIANE COMPLIANCE AND CONTROL ANALYST Unavailable Unavailable TREJO, R ADRIANE COMPLIANCE AND CONTROL ANALYST Unavailable Unavailable TREJO, R ADRIANE COMPLIANCE AND CONTROL ANALYST Unavailable Unavailable TREJO, R ADRIANE COMPLIANCE AND CONTROL ANALYST Unavailable Unavailable TREJO, R ADRIANE COMPLIANCE AND CONTROL ANALYST Unavailable Unavailable TREJO, R ADRIANE COMPLIANCE AND CONTROL ANALYST Unavailable Unavailable TREJO, R ADRIANE COMPLIANCE AND CONTROL ANALYST Unavailable Unavailable TREJO, R ADRIANE COMPLIANCE AND CONTROL ANALYST Unavailable Unavailable TREJO, R ADRIANE COMPLIANCE AND CONTROL ANALYST Unavailable Unavailable TREJO, R ADRIANE COMPLIANCE AND CONTROL ANALYST Unavailable Unavailable TREJO, R ADRIANE COMPLIANCE AND CONTROL ANALYST Unavailable Unavailable TREJO, R ADRIANE COMPLIANCE AND CONTROL ANALYST Unavailable Unavailable TREJO, R ADRIANE COMPLIANCE AND CONTROL ANALYST Unavailable Unavailable TREJO, R ADRIANE COMPLIANCE AND CONTROL ANALYST Unavailable Unavailable TREJO, R ADRIANE COMPLIANCE AND CONTROL ANALYST Unavailable Unavailable TREJO, R ADRIANE COMPLIANCE AND CONTROL ANALYST Unavailable Unavailable TREJO, R ADRIANE COMPLIANCE AND CONTROL ANALYST Unavailable Unavailable TREJO, R ADRIANE COMPLIANCE AND CONTROL ANALYST Unavailable Unavailable TREJO, R ADRIANE COMPLIANCE AND CONTROL ANALYST Unavailable Unavailable TREJO, R ADRIANE COMPLIANCE AND CONTROL ANALYST Unavailable Unavailable TREJO, R ADRIANE COMPLIANCE AND CONTROL ANALYST Unavailable Unavailable TREJO, R ADRIANE COMPLIANCE AND CONTROL ANALYST Unavailable Unavailable TREJO, R ADRIANE COMPLIANCE AND CONTROL ANALYST Unavailable Unavailable TREJO, R ADRIANE COMPLIANCE AND CONTROL ANALYST Unavailable Unavailable TREJO, R ADRIANE COMPLIANCE AND CONTROL ANALYST Unavailable Unavailable TREJO, R ADRIANE COMPLIANCE AND CONTROL ANALYST Unavailable Unavailable TREJO, R ADRIANE COMPLIANCE AND CONTROL ANALYST Unavailable Unavailable TREJO, R ADRIANE COMPLIANCE AND CONTROL ANALYST Unavailable Unavailable TREJO, R ADRIANE COMPLIANCE AND CONTROL ANALYST Unavailable Unavailable Cierra Pagan Unavailable Cheyenne Yang Unavailable [phone] SYSTEM, NOT IN PROVIDER Unavailable Unavailable SYSTEM IN, NOT IN PROVIDER Unavailable Unavailable ELIZABETH WRIGHT MD Unavailable Unavailable ELIZABETH WRIGHT MD Unavailable Unavailable ELIZABETH WRIGHT MD Unavailable Unavailable ELIZABETH WRIGHT MD Unavailable Unavailable ELIZABETH WRIGHT MD Unavailable Unavailable ELIZABETH WRIGHT MD Unavailable Unavailable ELIZABETH WRIGHT MD Unavailable Unavailable ELIZABTEH WRIGHT MD Unavailable Unavailable NITACora MD Unavailable Unavailable NITACora MD Unavailable Unavailable NITACora MD Unavailable Unavailable NITACora MD Unavailable Unavailable NITACora MD Unavailable Unavailable NITACora MD Unavailable Unavailable NITACora MD Unavailable Unavailable NITACora MD Unavailable Unavailable NITACora MD Unavailable Unavailable NITACora FARFAN MD Unavailable Unavailable NITACora MD Unavailable Unavailable NITACora MD Unavailable Unavailable NITACora MD Unavailable Unavailable NITACora MD Unavailable Unavailable NITACora MD Unavailable Unavailable NITA S JUAN MIGUEL FERNANDEZ Unavailable Unavailable NITACora MD Unavailable Unavailable NITACora MD Unavailable Unavailable NITA S JUAN MIGUEL FERNANDEZ Unavailable Unavailable Shen Osullivan COMPLIANCE AND CONTROL ANALYST Unavailable Unavailable Rebecca TREVIZO MD Unavailable Unavailable Rebecca TREVIZO MD Unavailable Unavailable Rebecca TREVIZO MD Unavailable Unavailable Rebecca TREVIZO MD Unavailable Unavailable Rebecca TREVIZO MD Unavailable Unavailable Rebecca TREVIZO MD Unavailable Unavailable Rebecca TREVIZO MD Unavailable Unavailable Rebecca TREVIZO MD Unavailable Unavailable Rebecca TREVIZO MD Unavailable Unavailable Rebecca TREVIZO MD Unavailable Unavailable Rebecca TREVIZO MD Unavailable Unavailable Rebecca TREVIZO MD Unavailable Unavailable Rebecca TREVIZO MD Unavailable Unavailable Rebecca TREVIZO MD Unavailable Unavailable Rebecca TREVIZO MD Unavailable Unavailable Rebecca TREVIZO MD Unavailable Unavailable Rebecca TREVIZO MD Unavailable Unavailable Rebecca TREVIZO MD Unavailable Unavailable Rebecca TREVIZO MD Unavailable Unavailable Rebecca TREVIZO MD Unavailable Unavailable Rebecca TREVIZO MD Unavailable Unavailable Rebecca TREVIZO MD Unavailable Unavailable Rebecca TREVIZO MD Unavailable Unavailable Rebecca TREVIZO MD Unavailable Unavailable Rebecca TREVIZO MD Unavailable Unavailable Rebecca TREVIZO MD Unavailable Unavailable Rebecca TREVIZO MD Unavailable Unavailable Rebecca TREVIZO MD Unavailable Unavailable Rebecca TREVIZO MD Unavailable Unavailable Rebecca TREVIZO MD Unavailable Unavailable Rebecca TREVIZO MD Unavailable Unavailable Rebecca TREVIZO MD Unavailable Unavailable Rebecca TREVIZO MD Unavailable Unavailable Rebecca TREVIZO MD Unavailable Unavailable Rebecca TREVIZO MD Unavailable Unavailable Rebecca TREVIZO MD Unavailable Unavailable Rebecca TREVIZO MD Unavailable Unavailable Rebecca TREVIZO MD Unavailable Unavailable Rbeecca TREVIZO MD Unavailable Unavailable Rebecca TREVIZO MD Unavailable Unavailable Rebecca TREVIZO MD Unavailable Unavailable Rebecca TREVIZO MD Unavailable Unavailable Rebecca TREVIZO MD Unavailable Unavailable Rebecca TREVIZO MD Unavailable Unavailable Rebecca TREVIZO MD Unavailable Unavailable Rebecca TREVIZO MD Unavailable Unavailable Rebecca TREVIZO MD Unavailable Unavailable Rebecca TREVIZO MD Unavailable Unavailable Rebecca TREVIZO MD Unavailable Unavailable Rebecca TREVIZO MD Unavailable Unavailable Rebecca TREVIZO MD Unavailable Unavailable Rebecca TREVIZO MD Unavailable Unavailable Rebecca TREVIZO MD Unavailable Unavailable Rebecca TREVIZO MD Unavailable Unavailable Rebecca TREVIZO MD Unavailable Unavailable Rebecca TREVIZO MD Unavailable Unavailable Rebecca TREVIZO MD Unavailable Unavailable Rebecca TERVIZO MD Unavailable Unavailable Rebecca TREVIZO MD Unavailable Unavailable Rebecca TREVIZO MD Unavailable Unavailable Rebecca TREVIZO MD Unavailable Unavailable Rebecca TREVIZO MD Unavailable Unavailable Rebecca TREVIZO MD Unavailable Unavailable Rebecca TREVIZO MD Unavailable Unavailable Rebecca TREVIZO MD Unavailable Unavailable Rebecca TREVIZO MD Unavailable Unavailable Rebecca TREVIZO MD Unavailable Unavailable Rebecca TREVIZO MD Unavailable Unavailable Rebecca TREVIZO MD Unavailable Unavailable Rebecca TREVIZO MD Unavailable Unavailable Rebecca TREVIZO MD Unavailable Unavailable Rebecca TREVIZO MD Unavailable Unavailable Re-disclosure Warning The records that you are about to access may contain information from federally-assisted alcohol or drug abuse programs. If such information is present, then the following federally mandated warning applies: This information has been disclosed to you from records protected by federal confidentiality rules (42 CFR part 2). The federal rules prohibit you from making any further disclosure of this information unless further disclosure is expressly permitted by the written consent of the person to whom it pertains or as otherwise permitted by 42 CFR part 2. A general authorization for the release of medical or other information is NOT sufficient for this purpose. The Federal rules restrict any use of the information to criminally investigate or prosecute any alcohol or drug abuse patient.The records that you are about to access may contain highly sensitive health information, the redisclosure of which is protected by Article 27-F of the [facility] Public Health law. If you continue you may have access to information: Regarding HIV / AIDS; Provided by facilities licensed or operated by the [facility] Office of Mental Health; or Provided by the [facility] Office for People With Developmental Disabilities. If such information is present, then the following [facility] mandated warning applies: This information has been disclosed to you from confidential records which are protected by state law. State law prohibits you from making any further disclosure of this information without the specific written consent of the person to whom it pertains, or as otherwise permitted by law. Any unauthorized further disclosure in violation of state law may result in a fine or prison sentence or both. A general authorization for the release of medical or other information is NOT sufficient authorization for further disc losure. Allergies and Adverse Reactions Type Description Substance Reaction Status Data Source(s ) Drug Class NO KNOWN ALLERGIES NO KNOWN ALLERGIES [facility] enviromental enviromental enviromental sneezing , itchy watety eyes Active eCW1 ([facility]) lactose lactose lactose stomach aches Active eCW1 ([facility]) Allergy to substance Allergy to substance Allergy to substance [place]IL[place] ([facility]) Family History Family Member Name Family Member Gender Family Member Status Date o f Status Description Data Source(s) Unknown Unknown Problem MEDENT ([facility]) Encounters Encounter Providers Location Date Indications Data Source(s ) Extended Individual Psychotherapy - 45 min Attender: Vicki Pagan [facility] 03/14/2020 12:00:00 PM EST - 03/14/2020 12:00:00 PM EST [facility] ([facility]) Attender: Cierra Pagan 03/14/2020 12:00:00 AM EST [facility] ([facility]) Cheyenne Yang, [facility]: [address] [place] [phone], Ph. Attender: Cheyenne Yang [place] - [facility] Medical 03/10/2020 12:00:00 AM EST [place] ([facility]) Extended Individual Psychotherapy - 45 min Attender: Vicki Pagan [facility] 03/09/2020 10:30:00 AM EST - 03/09/2020 10:30:00 AM EST [facility] ([facility]) Attender: Cierra Pagan 03/09/2020 12:00:00 AM EST [facility] ([facility]) Outpatient Attender: ADRIANE TREJO NP 02/26/2020 12:00:0 0 AM [facility] [id number]"Psychotherapy Attender: Cierra Pagan [facility] 02/22/2020 03:00:00 AM EST - 02/22/2020 03:00:00 AM EST [facility] ([facility]) Attender: Cierra Pagan 02/22/2020 12:00:00 AM EST [facility] ([facility]) Outpatient Attender: SAMIR TREVIZO MD 02/22/2020 12:00:00 A M [facility] Outpatient Referrer: PROVIDER SYSTEM IN [address] [place] [address] 02/16/2020 1 1:53:00 AM EST left hand lac with cellulitis and lymphangitis with extensor tendon injury [facility] left hand lac with cellulitis and lympha ngitis with extensor tendon injury Psychiatric Diagnostic Evaluation with Medical Service s Attender: Ed Osullivan NP [facility] 02/16/2020 02:00:00 AM EST - 02/16/2020 02:00:00 AM EST [facility] ([facility]) Attender: Ed Osullivan NP 02/16/2020 12:00:00 AM EST [facility] ([facility]) [id number]"Psychotherapy Attender: Cierra Pagan [facility] 02/08/2020 02:00:00 AM EST - 02/08/2020 02:00:00 AM EST [facility] ([facility]) Attender: Cierra Pagan 02/08/2020 12:00:00 AM EST [facility] ([facility]) Psychiatric Diagnostic Evaluation (Non-Medical) Attender: Afia Pagan [facility] 02/05/2020 09:00:00 AM EST - 02/05/2020 09:00:00 AM EST [facility] ([facility]) Attender: Cierra Pagan 02/05/2020 12:00:00 AM EST [facility] ([facility]) Psychiatric Diagnostic Evaluation (Non-Medical) Attender: Afia Pagan [facility] 02/01/2020 01:00:00 AM EST - 02/01/2020 01:00:00 AM EST [facility] ([facility]) Attender: Cierra Pagan 02/01/2020 12:00:00 AM EST [facility] ([facility]) Psychiatric Diagnostic Evaluation (Non-Medical) Attender: Afia Pagan [facility] 01/25/2020 01:00:00 AM EST - 01/25/2020 01:00:00 AM EST [facility] ([facility]) Attender: Cierra Pagan 01/25/2020 12:00:00 AM EST [facility] ([facility]) Outpatient Referrer: [id number] 01/15/2020 08:3 0:00 AM EST unspecified psychosis [facility] unspecified psychosis Inpatient Attender: ELIZABETH Mata nder: JUAN MIGUEL MOYA MDAdmitter: JUAN MIGUEL MOYA MDReferrer: JUAN MIGUEL MOYA MD [id number] 11/26/2019 12:00:00 AM EDT - 12/02/2019 10:14:00 AM EDT psychosis [facility] psychosis Patient discharged. Outpatient Attender: KULWINDER [facility] 07/28/2019 07:58:12 PM EDT [facility] [place] [address] [facility] [place] [address] 06/01/2019 12:00:00 AM EDT eCW1 ([facility]) Outpatient Referrer: STELLA GREEN NP 05/27/2019 06:25:00 AM EDT [facility] [address] [facility] [place] [address] 05/04/2019 12:00:00 AM EDT eCW1 ([facility]) Medications Medication Brand Name Start Date Product Form Dose Route Admi nistrative Instructions Pharmacy Instructions Status Indications Reaction Description Data Source(s) 10 mg 03/05/2020 12:00:00 AM EST tablet 7 TAKE ONE TABLET BY MOUTH EVERY DAY TAKE ONE TABLET BY MOUTH EVERY DAY SOLD: 03/05/2020 [facility] Nicotine 4 MG/ACTUAT Inhalant Solution N icotine 10 MG Inhalation Inhaler (NICOTROL) Nicotine 10 MG Inhalation Inhaler (NICOTROL) 0 12:00:00 AM EDT 1 {puff} Inhalation active Inha le 1 puff into the lungs every hour as needed for Smoking cessation (Craving; MDD 12) [facility] benztropine mesylate 0.5 MG Oral Tablet Benztropine Mesylate 0.5 MG Oral Tablet (COGENTIN) Benztropine Mesylate 0.5 MG Oral Tablet (COGENTIN) 12:00:00 AM EDT 0.5 mg Oral active Take 1 t ablet by mouth daily [facility] Melatonin 5 MG Oral Tablet Melatonin 5 MG Oral Tablet 2019 12:00:00 AM EDT 5 mg Oral active Take 1 tablet by mouth nightly [facility] Cholecalciferol 1000 UNT Oral Tablet Vit forbes D3 25 MCG (1000 UT) Oral Tablet (CHOLECALCIFEROL) Vitamin D3 25 MCG (1000 UT) Oral Tablet (CHOLECALCIFER OL) 12/02/2019 12:00:00 AM EDT 1000 U Oral active Take 1 tablet by mouth daily [facility] olanzapine 5 MG Disintegrating Oral Tabl et OLANZapine 5 MG Oral Tablet Disintegrating (ZYPREXA) OLANZapine 5 MG Oral Tablet Disintegrating (ZYPREXA) 12/02/2019 12:00:00 AM EDT 5 mg Oral active Take 1 tablet by mouth nightly [facility] Cholecalciferol 1000 UNT Oral Tablet vit forbes D3 (CHOLECALCIFEROL) tablet 1,000 Units vitamin D3 (CHOLECALCIFEROL) tablet 1,000 Units 2019 12:15:00 PM EDT 1000 U Oral active 1,000 Un its, Oral, Daily Standard, First dose on Sat12/01/19 at 1215, For 30 days
25 mcg vitamin D3 = 1,000 international units vitamin D3.
[facility] Medication administered onsite Melatonin 5 MG Oral Tablet melatonin tablet 5 mg melatonin t ablet 5 mg 11/30/2019 10:00:00 PM EDT 5 mg Oral active 5 mg, Oral, Nightly, First dose on 11/30/19 at 2200, For 30 days [facility] Medication administered onsite benztropine mesylate 1 MG Oral Tablet benztropine (COG ENTIN) tablet 0.5 mg benztropine (COGENTIN) tablet 0.5 mg 11/29/2019 08:00:00 PM EDT 0.5 m g Oral active 0.5 mg, Oral, Da jenni Standard, First dose on 11/29/19 at 2000, For 30 days [facility] Medication administered onsite olanzapine 5 MG Disintegrating Oral Tabl et OLANZapine zydis (ZYPREXA) disintegrating tablet 5 mg OLANZapine zydis (ZYPREXA) disintegratin g tablet 5 mg 11/26/2019 10:00:00 PM EDT 5 mg Oral active 5 mg, Oral, Nightly, First dose on Jeannie 11/26/19 at 2200, For 30 days [facility] Medication administered onsite olanzapine 5 MG Disintegrating Oral Tabl et OLANZapine zydis (ZYPREXA) disintegrating tablet 5 mg OLANZapine zydis (ZYPREXA) disintegratin g tablet 5 mg 11/26/2019 02:45:37 PM EDT 5 mg Oral active 5 mg, Oral, Every 6 hours PRN, agitation, psychosis, Starting Jeannie 11/26/19 at 1445, For 30 days [facility] Medication administered onsite Acetaminophen 325 MG Oral Tablet acetaminophen (TYLENO L) tablet 650 mg acetaminophen (TYLENOL) tablet 650 mg 11/26/2019 02:45:21 AM EDT 65 0 mg Oral active 650 mg, Oral, E very 4 hours PRN, Mild Pain (Pain Scale Score 1- 3), Headaches, Moderate Pain (Pain Scale Score 4-6), Severe Pain (Pain Scale Score 7-10), MDD 4, Starting Jeannie 11/26/19 at 0245, For 30 days
Max [id number] per 24-hour period
[facility] Medication administered onsite Ondansetron 4 MG Disintegrating Oral Tab let ondansetron (ZOFRAN-ODT) disintegrating tablet 4 mg ondansetron (ZOFRAN-ODT) disintegrating tablet 4 mg 11/26/2019 02:45:21 AM EDT 4 mg Oral active 4 mg, Oral, Every 6 hours PRN, Nausea, Starting [facility] 11/26/19 at 0245, For 30 days
Dissolve on tongue.
[facility] Medication administered onsite Hydroxyzine Hydrochloride 50 MG Oral Tablet hydrOXYzin e (ATARAX) tablet 50 mg hydrOXYzine (ATARAX) tablet 50 mg 11/26/2019 02:45:21 AM EDT 50 mg Oral active 50 mg, Oral, Every 6 hours PRN, Anxiety, Sleep, Starting [facility] 11/26/19 at 0245, For 30 days [facility] Medication administered onsite Nicotine 4 MG/ACTUAT Inhalant Solution nicotine (NICOT ROL) inhaler 1 puff nicotine (NICOTROL) inhaler 1 puff 11/26/2019 02:45:21 AM EDT 1 {puff} Inhalation active 1 puff, Inhala tion, Every 1 hour PRN, Smoking cessation, Craving; MDD 12, Starting [facility] 11/26/19 at 0245, For 30 days
Max [id number] per 24-hour period
[facility] Medication administered onsite Magnesium Hydroxide 80 MG/ML Oral Suspen brian magnesium hydroxide (MILK OF MAGNESIA) 400 MG/5ML suspension 30 mL magnesium hydroxide (MILK OF MAGNESIA) 4 00 MG/5ML suspension 30 mL 11/26/2019 02:45:21 AM EDT 30 mL Oral active 30 mL, Oral, Daily PRN, Constipation, Starting [facility] 11/26/19 at 0245, For 30 days
Shake well before usingIf serum creatinine > 2 notify provider before administering
[facility] Medication administered onsite Trazodone Hydrochloride 100 MG Oral Tablet trazodone ( DESYREL) tablet 100 mg trazodone (DESYREL) tablet 100 mg 11/26/2019 02:45:21 AM EDT 100 mg Oral active 100 mg, Oral, Nightl y PRN, Sleep, Starting [facility] 11/26/19 at 0245, For 30 days [facility] Medication administered onsite Aluminum Hydroxide 40 MG/ML / Magnesium Hydroxide 40 MG/ML / Simethicone 4 MG/ML Oral Suspension Alum & Mag Hydroxide-Simeth (MAALOX PLUS) 200-200-20 MG/5ML suspension 30 mL Alum & Mag Hydroxide-Simeth (MAALOX PLUS ) 200-200-20 MG/5ML suspension 30 mL 11/26/2019 02:45:21 AM EDT 30 mL Oral a ctive 30 mL, Oral, Every 4 hours PRN, Heartburn, Indigestion, MDD 4, Starting [facility] 11/26/19 at 0245, For 30 days
Max [id number] per 24-hour period
[facility] Medication administered onsite Sulfamethoxazole 800 MG / Trimethoprim 1 60 MG Oral Tablet [Bactrim] Bactrim DS 800-160 MG Bactrim DS 800-160 MG 06/01/2019 12:00:00 AM EDT active 1 tablet eCW1 ([facility]) Insurance Providers Payer name Policy type / Coverage type Policy ID Covered democrat ID Covered democrat's relationship to santoyo Policy [place] Plan Information HC COMMUNITY PLAN MCDO [id number] SP [id number] [facility] [id number] SP [id number] [facility](MCAID) O [id number] S [id number] [facility] I [id number] Self [id number] [facility] I [id number] Self [id number] [facility] [id number] SP [id number] [place] [id number] SP [id number] Medicaid Dental P UNAVAILABLE S UN AVAILABLE MEDICAID [id number] SP [id number] UNHC COMMUNITY PLAN MCDO [id number] SP [id number] MEDICAID M [id number] MEDICAID [id number] SP [id number] SELF PAY ONLY [id number] SP [id number] MEDICAID [id number] SP [id number] [employer] [facility] [id number] SP [id number] MEDICAID [id number] SP [id number] ANSI-Medicaid [id number] ANSI-Not a Secondary Insurance [id number] [employer] [id number] MD2 [id number] SELF PAY ONLY [id number] SP [id number] MEDICAID [id number] SP [id number] [employer] INSURANCE [id number] SP [id number] [employer] [id number] [id number] [place] PPO 302/307 [id number] [employer] [id number] [place] 302/307 [id number] [facility] [id number] SP [id number] [place] PPO 302/307 [id number] SF2 [id number] [place] 302/307 [id number] SF2 [id number] [employer] [id number] SELF PAY [id number] [employer] [id number] [place] [id number] FA [id number] [employer] PPO O [id number] P [id number] BCBS/[place] Medigap Part B Family Dependent [place] Commercial Family Dependent BCBS [place] PPO 302/307 [id number] MO2 [id number] Problems, Conditions, and Diagnoses Code Display Name Description Problem Type Effective Dates Data Source(s) Z72.0 Tobacco use Tobacco Use Disorder, Mild Condition 0 03/14/2020 12:00:00 AM EST [facility] ([facility]) 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) F29 Unspecified psychosis not du e to a substance or known physiological condition Unspecified Schizophrenia Spectrum and Other Psychotic Disorder Condition 03/09/2020 12:00:00 AM EST [facility] (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 stimulant dependence, uncomplicate d Stimulant Use Disorder, Moderate: Other or unspecified stimulant Condition 03/09/2020 12:00:00 AM EST [facility] ([facility]) F43.9 Reaction to severe stress, unspecified U nspecified Trauma- and Stressor- Related Disorder Condition 03/09/2020 12:00:00 AM EST [facility] ([facility]) left hand lac with cellulitis and lympha ngitis with extensor tendon injury left hand lac with cellulitis and lymphangitis with extensor tendon injury Diagnosis 02/16/2020 11:53:00 AM [facility] unspecified psychosis unspecified psychosis Diagnosis 01/15/2020 08:30:00 AM [facility] depression depression Diagnosis 01/15/2020 08:30:00 AM ES [facility] psychosis psychosis Diagnosis 11/26/2019 02:30:00 AM ED [facility] Surgeries/Procedures Procedure Description Date Indications Data Source(s) Extended Individual Psychotherapy - 45 min 03/14/2020 12:00:00 AM EST - 03/14/2020 12:00:00 AM EST [facility] ([facility]) Extended Individual Psychotherapy - 45 min 12:00:00 AM EST [facility] ([facility]) Extended Individual Psychotherapy - 45 min 03/09/2020 12:00:00 AM EST - 03/09/2020 12:00:00 AM EST [facility] ([facility]) Extended Individual Psychotherapy - 45 min 12:00:00 AM EST [facility] ([facility]) [id number]"Psychotherapy 1 12:00:00 AM EST - 02/22/2020 12:00:00 AM EST [facility] ([facility]) [id number]"Psychotherapy 02/22/2020 12:00:00 AM EST [facility] ([facility]) Psychiatric Diagnostic Evaluation with Medical Services 02/16/2020 12:00:00 AM EST - 02/16/2020 12:00:00 AM EST [facility] ([facility]) Psychiatric Diagnostic Evaluation with Medical Services 02/16/2020 12:00:00 AM EST [facility] ([facility]) [id number]"Psychotherapy 0 12:00:00 AM EST - 02/08/2020 12:00:00 AM EST [facility] ([facility]) [id number]"Psychotherapy 02/08/2020 12:00:00 AM EST [facility] ([facility]) Psychiatric Diagnostic Evaluation (Non-Medical) 02/05/2020 12:00:00 AM EST - 02/05/2020 12:00:00 AM EST [facility] ([facility]) Psychiatric Diagnostic Evaluation (Non-Medical) 2019 12:00:00 AM EST [facility] ([facility]) Psychiatric Diagnostic Evaluation (Non-Medical) 02/01/2020 12:00:00 AM EST - 02/01/2020 12:00:00 AM EST [facility] ([facility]) Psychiatric Diagnostic Evaluation (Non-Medical) 2019 12:00:00 AM EST [facility] ([facility]) Psychiatric Diagnostic Evaluation (Non-Medical) 01/25/2020 12:00:00 AM EST - 01/25/2020 12:00:00 AM EST [facility] ([facility]) Psychiatric Diagnostic Evaluation (Non-Medical) 2019 12:00:00 AM EST [facility] ([facility]) 25 HYDROXY INCLUDES FRACTIONS IF PERFORMED VITAMIN D 25 HYDROXY , TOTAL Routine 12/01/2019 12:15 PM EDT 12/01/2019 12:15:00 PM EDT [facility] COMPREHENSIVE METABOLIC PANEL COMPREHENSIVE METABOLIC PANEL Rou nestor 12/01/2019 12:15 PM EDT 12/01/2019 12:15:00 PM EDT [facility] Results ID Date Data Source [id number] 02/27/2020 01:26:00 AM EST [facility] Name Value Range Interpretation Code Description Data Anahi rce(s) Supporting Document(s) SARS-CoV-2 (COVID 19) NEGATIVE - SARS-CoV-2 (COVID19) [facility] This lab was ordered by [facility] a nd reported by [facility]. ID Date Data Source [id number] 02/17/2020 08:34:37 AM EST [facility] Name Value Range Interpretation Code Description Data Anahi rce(s) Supporting Document(s) Progress Note [facility] RABIDk7wVbWACvLy04/GCEweWKQul3SsGPhjNWt4BXmxQQEyT1OlOPZ4jK8hBAX2XBsQDdJcCbUfImZv m [file] v3MIJdZHilTXO4SmYbDQPzLTKqEQ0fNQIYFj2+YBrnaRQbzUyjVGUHEagvBeSBMxTvTI1OKBp= ID Date Data Source [id number] 02/16/2020 05:12:55 PM EST [facility] Name Value Range Interpretation Code Description Data Anahi rce(s) Supporting Document(s) Progress Note [facility] LOHAIf4xLzUBKqYo97/OSKnjPAQfi7MgKNnvZVw2GIraCAIfZ9XpHJL9eX0sZFG8MDuFTgHtDwHkPuH5 lbm [file] AgICAgICAgICAgICAgICAgICAgICAgICAgICAgICAgICAgICAgICAgICAgICAgICAgICAgICAgICAgIC VqALFpILWaYJDmJWTxFH6RCOEnGXHsUZZcBJEwOCVw ICAgICAgICAgICAgICAgICAgICAgICAgICAgICAgICAgICAgICAgICAgICAgICAgICAgICAgICAgICAg KNEbOIHrJGAlAKEeOWTzUJMyXZMgNXWtXI0TDEIiOONvLHWlSQMuIETyMNGaZQKcGJEdQPFqMMSkIORj ICAgICAgICAgICAgICAgICAgICAgICAgICAgICAgIC YnAYDsKSCrKCEeJYIlUPOxPLEnFSOcBDNcAVOmDVBvQDVfGX0DJBIgVXKuGIRhCIAkDVKkSPOpOZUjGK AgICAgICAgICAgICAgICAgICAgICAgICAgICAgICAgICAgICAgICAgICAgICAgICAgICAgICAgICAgIC HxXNWsLBLoWLIfUFOtQOFfCG4EAJSvAAXiZBRhWCEt ICAgICAgICAgICAgICAgICAgICAgICAgICAgICAgICAgICAgICAgICAgICAgICAgICAgICAgICAgICAg FCFnOJHqUEBqXFXcVUHfOZXsWXHmUANdLOEhSV0IAWOpEOIiSCKkEGLqLLZlSUKzYEEpWKAaIRHyMVMg ICAgICAgICAgICAgICAgICAgICAgICAgICAgICAgIC SoIXGqUVCaEPVsGGBcXROmFKBcFXQfSYFxKIPlANPlQVKoQADzRN9YIVAhBPQqEJWzIIElKXDlYGBzOQ AgICAgICAgICAgICAgICAgICAgICAgICAgICAgICAgICAgICAgICAgICAgICAgICAgICAgICAgICAgIC EuHUIiEZMkTMBxJKBiFFEdPOAqOO9XEINqSPUxVXEw ICAgICAgICAgICAgICAgICAgICAgICAgICAgICAgICAgICAgICAgICAgICAgICAgICAgICAgICAgICAg ZFYaCCRsFSLkOEDhIBFaRFUdVXWvDEZjMMMwWAQxFA9OFMWiVSBeZIGyKIChWYWgMCMaSYLmTMVhYIKs ICAgICAgICAgICAgICAgICAgICAgICAgICAgICAgIC EtNTRwIQNhQUAkCAUuKULnVHUsGMPxQZOiWFZsHHPtLEBnEXGkCCQaDQ3YUUTxGBZhIZCwBVXiEHBpRX AgICAgICAgICAgICAgICAgICAgICAgICAgICAgICAgICAgICAgICAgICAgICAgICAgICAgICAgICAgIC LvHBTfANZiWZOoSRQvQYNeOVKtWMOcGT8GOQ16jOUl t7D6TZVdTH0liow/Pn9TGUupcwIhaDAqCH7BIrNdEE5yrk7DRyXeTL1zxh4QHCoRWvHmP2A5ySBvFGAl CNQXTcGbX25rATgkKm37GFerETDwOgVjEUd4Xl7TDlSsI6ruKWAkPbP1LGBvRlNlWFqfYX9Me6HitGLi DQo+Ze0SOD5tr0PuVLovFAZqIF1zav0YYBnFKvNfA5 TdfaV5RSB6KVYyHc5EOIVfBXNynYVoUJVuCQVXOtUeY9LatG67WTYGHm0+BKbaffKcCqoJMrF0NOJmu1 AfOUr4NI0TRRJaKMv2cUMpFZQzJ4Nhz3TgIw88GPNfSgnvOmPuQAGDDPZuvtXsO3XrNLLFMmZwpFQtGa 0pIJ8vRJDzEDM7YpDgGNAFED6YXUErDBYblYQxPLLd LTAHJC0UDOaaTOS3VYTsosAjnOOqIWrpCW4QPRBokaOmOELdYGZSRNr+Pc0SAE3ep9KsJTyjZtTeYC2d dz2BSNnEReNaR1K9kPZsM9O1BXpiRm0SWAFrMPRvGFQuXARYZJooLZ3SMC5xkzG1MU4AbVBlCULdXNLi tLTtFVj5W61iuSDsRSktXW7FDHB+Daniel+Yo4JNMZsAC LeUAVrNvCkPTWQOjSmS5EzN9XKw4QlB9IsQP66xTsrdsTyUAysRM0WWB6aRVFnXVYGOH4ZbBEaeB1lcc QgPRXmDSOIJtTkK38zlQWsDWUuXBMeBOFhSl4FMFFjD7IerpVqlWwaogExUZHaDGBDKC7AXBdgwlNhfI LwbOmoTY29vFpwSL7JNc7UNkWfVS5hfq4LiIHfWy2I ZOXyOd3LGRYtMYJwWYVwPQF0WTRoXiNdXOfrJMXuLFAkABM3YIKyLJAmRN4DLlJqRZEbQDS7EpfwKHOk AZEgxt2VDRFyNNGeBnD8KCZeNJWhRUPwFLuzHNKqPOOuGKW4FDFtUKFgHY6XZyOdQIJpJZQ7PmveINSd ZVWezt3HRVDgPTYnFGc2YrOeUPDbUBPrESmwBERsNR HnSMMwKHViRAYoRN9QCiAcBIJxGTSiDnneKPDvONUvsc9KRJIeEQPsYsMlZFOzURPlVHWrEOrfEAGxHK K3CqN8URTfDBXwSW6UClGeEOIhIRV4LzlhFLDiJIHrfy2PZRXlMIWbAWN8SNToUYUnPTEyVGhgBTYcGF T7IZU1QAGbFLMrTS0JWhTnPLEgFXI9CCxqNTZnOJBa aw1NAEGuAJLaChJ4QPAuVMKmKHQeUImlRJDgDNV4TnQ2YMZtKOKdGX7ZSgKnNOlqBHDXPyp1ADgmD6m3 MUIaGo5HW9Tkt1VdWVFzPTPSGEpxDM1hpfChZUZcPt4RA3aYMsxaPnG6EpYvHwRkUSd7WRY7RmBdPtYj FXNcDnEzSZMuSV7uTSNuOJdmKUPsFVG7IMOvZkTtNx ZsDsB2SJYlNeE0ZhM2TuXlKA7BSj4KJhM5PZJ8pYPmOg0NUje9Wi2FYMWKJ4QTMd== ID Date Data Source [id number] 02/16/2020 08:15:00 AM EST [facility] Name Value Range Interpretation Code Description Data Anahi rce(s) Supporting Document(s) SARS coronavirus 2 RNA [Presence] in Res piratory specimen by TAISHA with probe detection [facility] This lab was ordered by [facility] a nd reported by [facility]. ID Date Data Source [id number] 02/09/2020 02:50:00 PM EST [facility] ([facility]) Name Value Range Interpretation Code Description Data Anahi rce(s) Supporting Document(s) ID Date Data Source [id number] 02/09/2020 02:50:00 PM EST [facility] Name Value Range Interpretation Code Description Data Anahi rce(s) Supporting Document(s) SARS coronavirus 2 RNA [facility] This lab was ordered by [facility] and reported by [facility]. ID Date Data Source [id number] 01/15/2020 08:46:00 AM EST [facility] Name Value Range Interpretation Code Description Data Anahi rce(s) Supporting Document(s) Progress Note [facility] QJIWPa9mEsVFXmXb23/LXNjpTRPcm7HaMWwjKTs4ITddZBFrT8WqKDH7gD2gBAK0CXoBOaJaLgRcIAY7 [facility] [file] [id number] ID Date Data Source [id number] 12/02/2019 04:44:07 PM EDT [facility] Name Value Range Interpretation Code Description Data Anahi rce(s) Supporting Document(s) Discharge Summary [facility] FWUMZq1wCaAUIxMx20/YOJixZXUmz7FpEKlmEMr1RYvdQTXmB6VcWFB7rP8jNIR5PMqRBoHvJtAkXXP3 lbm [file] ev[employer] sales+ISDlcJFeSLPdVzqPpgFx3hJ1rjALioL78RI3rJ8UydTSQ7+qD4on3HwCS+03cb0l8lGnJ6gVFAxN [file] AgICAgICAgICAgICAgICAgICAgICAgICAgICAgICAgICAgICAgICAgICAgICAgICAgICAgICAgICAgIC AgICAgICAgICANCiAgICAgICAgICAgICAgICAgICAg ICAgICAgICAgICAgICAgICAgICAgICAgICAgICAgICAgICAgICAgICAgICAgICAgICAgICAgICAgICAg ICAgICAgICAgICAgICAgICAgICANCiAgICAgICAgICAgICAgICAgICAgICAgICAgICAgICAgICAgICAg ICAgICAgICAgICAgICAgICAgICAgICAgICAgICAgIC AgICAgICAgICAgICAgICAgICAgICAgICAgICAgICANCiAgICAgICAgICAgICAgICAgICAgICAgICAgIC AgICAgICAgICAgICAgICAgICAgICAgICAgICAgICAgICAgICAgICAgICAgICAgICAgICAgICAgICAgIC AgICAgICAgICAgICANCiAgICAgICAgICAgICAgICAg ICAgICAgICAgICAgICAgICAgICAgICAgICAgICAgICAgICAgICAgICAgICAgICAgICAgICAgICAgICAg ICAgICAgICAgICAgICAgICAgICAgICANCiAgICAgICAgICAgICAgICAgICAgICAgICAgICAgICAgICAg ICAgICAgICAgICAgICAgICAgICAgICAgICAgICAgIC AgICAgICAgICAgICAgICAgICAgICAgICAgICAgICAgICANCiAgICAgICAgICAgICAgICAgICAgICAgIC AgICAgICAgICAgICAgICAgICAgICAgICAgICAgICAgICAgICAgICAgICAgICAgICAgICAgICAgICAgIC AgICAgICAgICAgICAgICANCiAgICAgICAgICAgICAg ICAgICAgICAgICAgICAgICAgICAgICAgICAgICAgICAgICAgICAgICAgICAgICAgICAgICAgICAgICAg ICAgICAgICAgICAgICAgICAgICAgICAgICANCiAgICAgICAgICAgICAgICAgICAgICAgICAgICAgICAg ICAgICAgICAgICAgICAgICAgICAgICAgICAgICAgIC AgICAgICAgICAgICAgICAgICAgICAgICAgICAgICAgICAgICANCiAgICAgICAgICAgICAgICAgICAgIC AgICAgICAgICAgICAgICAgICAgICAgICAgICAgICAgICAgICAgICAgICAgICAgICAgICAgICAgICAgIC AgICAgICAgICAgICAgICAgICANCjw/lFSnL8nrwKHf gtY8X3vmHw1RGy7OBD8rv0XjMHMiIWyozpVbOohMBzQqJVYhAxiHImf0ZLstJK5SmQIlU9TnM2ZhVJsu NN1BKWCcRENqfRNgXVHsLPEsFhN6CMXhUAzdVN1IlFSlURzeQFQmYXGzAnSuQBOhHUZqDVLrHCGqRMVC JSStJNYgQvBcYELhMKMzDHpuOQRTBUZ6RNHmCmNyJD XuFVVnNfYzRJOVUE3WKfCjZ4KioP69NCJgSLu+Pc0THA6rp9HjHMk1DTJmLF2qio0RUZdSHhVfS9Ylug F1EQM5JAZbZt7XHJBhRJCsaGK1JHWjXDMORqIiQ7AtpR00XXOZDx3+ZJrykxUlWdeRDgX3ADWqs2CaHC w6PC3XBKWsIWi0hLIwFLjeV0vmvpfiIPK1xS9uohfl YsxbACTqhEwbHIehGA5sOQ5HDRH6KKQtLoU9GlOhRwMaULz9DgMkSE4rVZscJV5UAFW6EUqoPNCyGXEj Q3yOAmCcGHSpAtAseNwrFB8XOuUjS1PxsjXcwHG7KPTrWHGPEj7+STjczfEhYfwBPaD8HFPda0NkMYs2 OM4FRPCwHJplQA8LXIRsxY8cVYbwWK1IDoN2ChIgKB OLWoIbK42koGDgCSu5O6YsXvLeUEDoOtaqRLCpGYinBzGgFOHqWbJtPKddIN7+ID4+OMdoAO3WMBsqch UqVBVzCs0VSXCeMFHdLB9xMFPaWBWuD2M4lCesWKMWQgJdY4rzyiuvRJ4kHGKkT785zYbwboEaUSJ3OB NsGj0PXTTqGKY9VDOgnKHiBXDsEDQPDUugNP4JfYJh FCR2dL6xRBzfSUJiUVWrM2iZUxCarBetFI88pUbmetKtpBGpORb+Ml1KSR7wc8BbRHi4anIxVGemTYM4 BEmwBROzBGTkOSDkHFG2KHM4QFRGNuAwTVWpDMMjDVjeDVWeNRQubn7QIJVdTTK9XwO9VOFpURYpIONz BJfaWHGgFQV1ChR5DHLvUXCcBJ0LLsOvGVArKJJpOA gqOWTvTTIhar1ZYUVdWHVnXDmhYKYgTRMvYUKgXZxiNNGzMNO6VGR9KYAhCHTjOB3NWpSfAOQvJVhdSx VcGMQeNQQdfa0QDJJiJNRqKTB2RMXrJQRlOVLiRQhbCQUfWQZcCoYiPJSdYJQmPS4ZKoNdUHEaPIB7JU MtZKIbODDegv4HVUQfYBTlFLq4WdPdSJZvEDCxXLld IPMdTZF8GELoATTgTQIqHN4ZVwFrTYWqQPg6GIHtWCQpVISvie3FBDBjWWKnQLF0BzUpMCTeRYCpSDbs VGTxDRFaVHQeDDEtEGZwZP2QTfAoRYYkYaNrZXFzAQUgRQKrox8GUYJsMNGjAlj6HXBiTJJtDDCcBFga BZJtHDY1FMp1AWZcRIQrGP6UEtRoDXVjVyD6USotYZ FcKHEvku5CZHJsIKEvVMh0BYNdJSUnFWNsWFtjEYFwSNZ2QEA4UBVkFPAlRY4QKoQeLLHiTjArTdVbJU LkPZLhkv9LFXVjJNTkNjmtNCQfETXyACSkNHmyNZSgDRR7OFCvANExTIMkOV5ZApGyWLBkDosoYALzNE AvWDPltt0UCOZsPXUbZPR0NOFhTXPzBSJdAIngJMPx KNQ4VPkrFKHcDEIeFJ4KQkQfLSAxVxx3LyLnPAPyZUJcst7SOLMoJAEcXBDfIjDfWYOfNKWnGKmsPKXc LCP8RCJsPXMyORMyYQ0KDiBwWKHnFDJlBIPpSYCuUMGnea2VFAEhOKY4JCFbFmDcBUJfDUYyIOwaGYQr QOAxRuFqFYZiLRQqYN9NQbMnRRIkBDH0CgOrANCxPR Npsn6XCVHfHRF7NtUnDmAkMJOfOYEaZOsiHOSpJAKpTCDqEGTfSJAyBX2LXlJiYUAzVOGyWJxkLPEuNP Pata7CEXZmKNL3JlIuGjGvWMQnQONpTRauJAMvYDC9EukhHIUqTNBvOT4CJrNwXHSrQTL0XdZyUGWgMG Bfiv2GPASbFYC9XBi4YmBlEJVeNANbZXdwLYBpYKH7 RqTvBTGaIHPgIS0PSnJtBNJySXi5RpTkVALqEYTbrb7YTXUySQM8VHS0FJDoLOObEPKfOXtoHGEsSTZa Ijm6VELfMXAbDT3YSrSrJNZgDaL4PhppFUIgBXVodn8NGJVfXQM1TMi4HLVeZXSpODEvITgyOSTfAHMu LRzaFFMaYJVzXC1AQkHxPYXwOlPvRxnxPTKiSKZbej 9UMXEsSNX9TfK0UUOwURSxHAFfBTntTBEaOFNtZwA5OBPnLIMwDU5SQxVhNCHyYbF7KJJsCMVdKLEbkf 7SLZHnBBV1QnynJmStXWHmGOWnHZccXPPeONA4AVG7PFXaIXYoAY6MZsVjFPBdYmY8NKilRXZoVQImmw 3JUDKpBAO3FBC5VQWlEAZnBDLxBYq9qaMvoWBcIAu3 GW7AU7HahvNhRSaFGe4Kd719XQS6VLZeKs2OI7odGp6kQMFjNSWJWy4LRVo0FNdbIrfnGGK4BbVoTME5 JUPtFGpyJFM0KlI4YeHaYAO+OWdjG7WfKiTzFWirTKDxZXtnAmK1O4RpNZriAONfPfW5VB3iWVMMLo5+ RIisxHUikCfpASJOPqG0BOauKJnyODKXJu8Z ID Date Data Source [id number] 12/01/2019 03:38:28 PM EDT [facility] Name Value Range Interpretation Code Description Data Anahi rce(s) Supporting Document(s) Calcidiol [Mass/volume] in Serum or Plasma 29 ng/mL >30 L [facility] ID Date Data Source [id number] 12/01/2019 01:12:54 PM [facility] Name Value Range Interpretation Code Description Data Anahi rce(s) Supporting Document(s) Albumin [Mass/volume] in Serum or Plasma by Bromocresol green (BCG) dye binding method 4.0 g/dL 3.5-5.2 [facility] Bil[facility].total [Mass/volume] in Serum or Plasma 0.3 mg/dL <1.2 [facility] Calcium [Mass/volume] in Serum or Plasma 9.2 mg/dL 8.6-10.0 [facility] Chloride [Moles/volume] in Serum or Plasma 103 mmol/L 98-107 [facility] Creatinine [Mass/volume] in Serum or Plasma 0.82 mg/dL 0.70-1.20 [facility] Glucose [Mass/volume] in Serum or Plasma 97 mg/dL 70-140 [facility] Alkaline phosphatase [Enzymatic activity/volume] in Serum or Plasma 81 U/L 40-129 [facility] Potassium [Moles/volume] in Serum or Plasma 4.1 mmol/L 3.4-5.1 [facility] Protein [Mass/volume] in Serum or Plasma 6.9 g/dL 6.4-8.3 [facility] Sodium [Moles/volume] in Serum or Plasma 139 mmol/L 136-145 [facility] Aspartate aminotransferase [Enzymatic activity/volume] in Serum or Plasma 37 U/L <40 [facility] Urea nitrogen [Mass/volume] in Serum or Plasma 9 mg/dL 6-20 [facility] Osmolality of Serum or Plasma by calculation 287 mosm/kg 275-300 [facility] Creatinine/Urea nitrogen [Mass Ratio] in Serum or Plasma 11 [facility] Bicarbonate [Moles/volume] in Serum 25 mmol/L 22-29 [facility] Alanine aminotransferase [Enzymatic activity/volume] in Seru m or Plasma 55 U/L <41 H [facility] Anion gap 3 in Serum or Plasma 11 mmol/L 8-15 [facility] Glomerular filtration rate/1.73 sq M pre dicted among non-blacks [Volume Rate/Area] in Serum or Plasma by Creatinine-based formula (MDRD) >6 0 [facility] Glomerular filtration rate/1.73 sq M pre dicted among blacks [Volume Rate/Area] in Serum or Plasma by Creatinine-based formula (MDRD) >60 [facility] ID Date Data Source [id number] 11/27/2019 02:51:57 PM EDT [facility] Name Value Range Interpretation Code Description Data Anahi rce(s) Supporting Document(s) History and Physical [facility] RQCQCl2tFbFCBjOp60/TDOxhANFvh0RvDUopDIk6OIiwKPZnW2AfCXG7yN7qTUU1JHxSHzJoYyBkWOS7 lbm [file] +QFyukWiEjkifwhXai0TfmvKv1AcluYNsEi/OM/+COMPLIANCE AND CONTROL ANALYST [file] ICAgICAgICAgICAgICAgICAgICAgICAgICAgICAgIC AgICAgICAgICAgICAgICAgICAgICAgICAgICAgICAgICAgICAgICAgICAgICAgICAgICAgICAgICAgIC NvNCEtNS6RFOMhVXZfXQSpHMUzWAWpQLYbDZVmSBUvPSIsYNNhHNMeYUDfNHAiHXCqFLOfKIRkZMTfPP AgICAgICAgICAgICAgICAgICAgICAgICAgICAgICAg MZIeLHUrSWLsJFBpBBIrEF1FKJHbDGBdNMMjEBOcGCRrNLYgJLIuTYGyKTAqSSLcACLcRQObXCOiPYWw JUKhMVFwPQNbUNEjSAIaHYCdHGKtYCQrFNKoBTOdPKQwJFYeBAUpTOYxGXHaXHYcWVJtPRLwMWPgGP6M ICAgICAgICAgICAgICAgICAgICAgICAgICAgICAgIC AgICAgICAgICAgICAgICAgICAgICAgICAgICAgICAgICAgICAgICAgICAgICAgICAgICAgICAgICAgIC JmXGEuMRIkCO7LKHJdLGZxNXTfQFXbAYVtFTTsQAJxLKCgVRJnFJRgDCPmOQWtONCwXPCpAOGiAEKjCW AgICAgICAgICAgICAgICAgICAgICAgICAgICAgICAg QEKuKOAhVDPwLYXvXJByWEOcCR4ZMCJtADUnNCOlVHBeAORqKSXuEAEvHKMpCJUaTMSkUMPbGRKlSHCo ICAgICAgICAgICAgICAgICAgICAgICAgICAgICAgICAgICAgICAgICAgICAgICAgICAgICAgICAgICAg RY6REOOaUHKzGPKvUDErASMeCYWdIPGrRVTdJJQcHP AgICAgICAgICAgICAgICAgICAgICAgICAgICAgICAgICAgICAgICAgICAgICAgICAgICAgICAgICAgIC NhBFJgTETkPBMdAN8HUZZtLTMwMFGqDVQcKDFzBROcTNJeCYSdWYItUVRyKZWpKHNaBRBfDXEcQKPtSN AgICAgICAgICAgICAgICAgICAgICAgICAgICAgICAg AWZqQIDmFWJtSTPoHBSgEQDaOCLhEX9KQIOyQOAcXXAzKDXoWSLrCFLqQWOaMYPdCPSvPMChGQUiZZDn ICAgICAgICAgICAgICAgICAgICAgICAgICAgICAgICAgICAgICAgICAgICAgICAgICAgICAgICAgICAg AVAmRT1YBJ50sBJkx4I5QMQxGI5bovu/Aq0VJKwdik RttESuFC4DYaZoCC6usd9DVcQdHC7uml3OXLeHBzEuR0E2hJMfEZQtDEDELmGjQ24lRBimQv85XKejBW IxVxSaLNi2Iv1DFbZfO3emEPXxDwZ9DSPjEeO8SDUzOaO0COHsOyCfAMGvQZKjZWFbDFTNLYA4YDPnEc NoXnFcRBSvYIvqDKNEJDUgTMJcPeSaNJluSS5Lj1Ui fLA4GMt+Nu4PWF0qd8HsBWz7EdVvVN9iuv1SGVtWOpTwR2GzasV2HBCzDJJxBv9ZZMOxDETxxMP1LlHt ORSZOgQzB6VkdF52ETTDRx7+MBdfwdSmLelVHbCxMAAkw7CoUJw4NQ6YXSEgIAz9xUFcLWGVEAJ3DU82 e4bneZNZpPXnBYNOHTEmeZOqTK11LqMkEuPlZBJ8Cj YsTE3sIMolOC5OSUT5EPlcARGgNREcC5uMToOrDXXyIuNcxWboXV1CPzFmH5MutrNgoTG0RsUqFXPSUl 4+ONcyhhFmVoqSUcL3QMOlb3AaAFg9YW1UEDTuQEzyMR1WXMXhiG2tECftVR8KNpC9IBKfYJGYRvWsR3 8bjLKdYKi6C0BtOgWxIPSeJnxxDJFcCYqhBvLjEAMw WyBdDQogID4+ID4+NOmmPK1PMWurlfKxCZPwLy8RHMYoHGZyEI2wUXAtRWXsW5R5rNluINDFGdAeR3sn sktmSG9hQKOgL794xHgqifHyOJOfUVRnBa3UVJIsECG9OBHkuWKlVYLoZOHAURguIA4IiZZuGYZ6kQ5o TPbqJDYbZMQwO9aXOfCqpEtyIW49gTjbvmDajLAcAN o+Zk2PNY7cq6UaXEd3qsPfTKawPDY8MZqqHJPgKFAeZLUuTEJ7HIL4SYRBTiOqFTDlTOOaZPmpSCPmVB Eiqr3OZWDnVPD9Okh4EpGjJEKqQGBfYVfoDOMhGUF7ZLZ4GPLgAVJmXR9MFsSoDCUjLJRuZRnoBXXbIH Nydj1MUXTjMXIxZZM4BFPvXPVrCTCiVMtbZRTgKTY2 STqtOEJvVBXzKJ5RTyPfJFSnIPiyJaOaFQFvMPLywz5DEKKnQGVyFcUmBHHpZIMmILXjPCecHLGwEMUq LxA7MMPuBULwOM9XCjCxKVGkVLP5PIoiIOHgZXPjva9POAViSYDxFkMqCWKgOUAzJGNsYEmlNABwZIVl EXP9QADtMPDgKS0ENnJuSDGmSRu6XGIfJPBqLWFumn 0NQEUnSURtOkq2DNCfQENiBUOpTTymLUEhODGxBCU4EHDiESEjYQ0QKcNuABGaDgI4EKYtWPCpNXJlrf 3SKGEzOUReFADlLyBoCJJhRMLvUMsaZDCjGUT1TdEtCDMsQODfDM8QIpAgDKDeSnzcBOIeKEPfGLIdyk 3TFJVpYPWqYAWfVvNvFMCeWPNsKCajALSlRWOcDgV6 NOZpFBYtTX6GVpFsJHLoLrN3VeHyAKBlIPMboe3KHKYvTPAwOsN2PODsCJXsHFOzKJpjHDEkRMDhGGd5 HPRcSFHaNW4UDqOyXONcGvV8CrPxVUJeAXTogg1ISNGtJMUoPRihXREzTTUxIGRqVAcpVBBySEL2DGBi CYXdBWOiAA9MHpGsSZYsHkSqORjzTGLfRBGurq7SID KxRZK3SlC0LAEuZZDzUTLwPZfyHNZxGMI6PCRhVUIkQALfNC0YCqYkQXIaOPvoGbBaTOKbVMCamz1QEZ ErSUO3QgV9MDEvIDWsOOHhBGgoBQDbZCC8BMK8QFCbUFNoON2FSfOtMVRrNRgzCRTzXVGkXBCkox9PSC CtJTK9NVJzBQXrVVMgVFSmEMxuGFSlIQT6JdQ2PAVt KTSbPF4JIlOgTFIpRWr7GLylSETjXWChwv0CFSDnORW0GYd7OrMgTAVxQOEeFUutYDTaIUPvGQS5VKSv DRPxYS1CSnAqYPEkHDE7KCTgTCTvFEIfok5AYIPzAXG9ZMVjKlEzZRPsDJQmEVziNUPvMZO3AVZwQFCe BAViNS1EWoDtALRrNEJ6CqSjKRMvAJRpsp5VMDGjKO P3BTomEvMpGXIkQLExWJjoOWUiOVM2AZA6ISMnZOCxJH2IDpCeBRXqIINeQbolJSBcKGJzsl3GVTDyZE C0AjSbYuTrHEPfRSXkIUnmWPMeEKU4FuT8ZSJcIMSfCN0KEqWrOBGnGZb1CPReDVUfXFDkyv4YKPOqQL G7CcxdDVIkQGFgPPTbSUufLJKbDXT9GvC7NRJpYNAu XX2TBhHtZWCmPYp7XGccNAFbICCqkq4LXHLdZKQ3IRa3KUMiXTBaBAHdUSleUUBxMMK5NKX8YUXsROPf ZS7PEnOaVRruNUIECea4FNplV0z0OFV9TW7AR1Joo9MjEROeKUTYOEeySX0ugwRsZLAyHf2KT4gLVvou ErH1FlZ1PUWlKPkpPFNsYlkjMUFlUXDbWSV0IgGoEj 9aAQOeBRY8JTj2NtYhUZGaLKV1ZBZrH3TlEEDeAsjbPVS7FgRjSL4LNf6PIkW3HWA7gZLlPd8EXxKgWF kFZsSyZV8FPCn= ID Date Data Source [id number] 11/26/2019 04:32:50 PM EDT [facility] Name Value Range Interpretation Code Description Data Anahi rce(s) Supporting Document(s) History and Physical [facility] WYXEIb8gTpXXYaNw41/GFSihZBKkz2GsZTqfDPh7MGmeWZErZ2EpYXB6fM2oQFZ6IXxTPyAbVaJsLSM0 lbm CsWwzATpMiBGMaWzxRIySlUShvYfbhjPDpUK2BgWY1OGByW71aRMRoRSLlA1XoCILwZpY+Pn3HWMAohK AbWZ8JDceA9Lufd8o40OzD/UkOH3rOcZepLZpXrmDplpeRtnYY5HWEfo+zorHqLhfc9Rg296RXki17+R bZlPtsPyQHknfHe/YtVAzk3f/woQG4twYz/P/iVz8Q bHTLvv+OLadJsZi2/BVNAguEox2/ZDU1Qeh/PyuSpLSrRemyzzDUWggMfFhOxqT0yKSeh/0jG/zFuA6y zPoGHrPpFpeaXPfoDIDcoSIeN0SpWnJuyTP6Hzb2XS5unSkJywms4RCqysNQtLNQqAmvlFSz9RjL0K0X Sy9wKTXCARdOyMDnXPgtZN06xIIESbrp6kjobvr7fj J6w+eFCXEIgHaFlNnGyNEn1x8Kh8qf2eaKvkTivZyF7ZHZgyqhxajcDPZ4N4rzXa5cUQh65Rk6FRTPyB yqOqBjcNFrcuHH5xCaD8x+TVR4vTL8LsyzzDdaq4L5d1oF4RELIWx5SazOyzx39Sq1D7lsoQfNx5fya4 dNogZ6hFmeML0lr3Mx03hgpI9FnLUDK/zAtg4RwoAc 8+EXKt7j64pnxW0l7fcEN3tlBdaIMoBNINh9bW8rbUJ1YDYi+TA5ua6/3xpz1KhDNzdlqSVcJTA0pZ0V a1s3T6lh6BJwn8IkEkq++N0ipuqe9hSsEpjxPJLbno4Xu6x2lQgIOVRvGtxx8Cqgy4yf8qe90/g23DJ/ vtwQXIIcug4yAORRcqEVRVSlsOGAQuJfLMJr4NeROp [file] AgICAgICAgICAgICAgICAgICAgICAgICAgICAgICAg ICAgICAgICAgICAgICAgICAgICAgICAgICAgICANCiAgICAgICAgICAgICAgICAgICAgICAgICAgICAg ICAgICAgICAgICAgICAgICAgICAgICAgICAgICAgICAgICAgICAgICAgICAgICAgICAgICAgICAgICAg ICAgICAgICAgICANCiAgICAgICAgICAgICAgICAgIC AgICAgICAgICAgICAgICAgICAgICAgICAgICAgICAgICAgICAgICAgICAgICAgICAgICAgICAgICAgIC AgICAgICAgICAgICAgICAgICAgICANCiAgICAgICAgICAgICAgICAgICAgICAgICAgICAgICAgICAgIC AgICAgICAgICAgICAgICAgICAgICAgICAgICAgICAg ICAgICAgICAgICAgICAgICAgICAgICAgICAgICAgICANCiAgICAgICAgICAgICAgICAgICAgICAgICAg ICAgICAgICAgICAgICAgICAgICAgICAgICAgICAgICAgICAgICAgICAgICAgICAgICAgICAgICAgICAg ICAgICAgICAgICAgICANCiAgICAgICAgICAgICAgIC AgICAgICAgICAgICAgICAgICAgICAgICAgICAgICAgICAgICAgICAgICAgICAgICAgICAgICAgICAgIC AgICAgICAgICAgICAgICAgICAgICAgICANCiAgICAgICAgICAgICAgICAgICAgICAgICAgICAgICAgIC AgICAgICAgICAgICAgICAgICAgICAgICAgICAgICAg ICAgICAgICAgICAgICAgICAgICAgICAgICAgICAgICAgICANCiAgICAgICAgICAgICAgICAgICAgICAg ICAgICAgICAgICAgICAgICAgICAgICAgICAgICAgICAgICAgICAgICAgICAgICAgICAgICAgICAgICAg ICAgICAgICAgICAgICAgICANCiAgICAgICAgICAgIC AgICAgICAgICAgICAgICAgICAgICAgICAgICAgICAgICAgICAgICAgICAgICAgICAgICAgICAgICAgIC AgICAgICAgICAgICAgICAgICAgICAgICAgICANCiAgICAgICAgICAgICAgICAgICAgICAgICAgICAgIC AgICAgICAgICAgICAgICAgICAgICAgICAgICAgICAg ICAgICAgICAgICAgICAgICAgICAgICAgICAgICAgICAgICAgICANCjw/uJImE8oycTKituI9H2gqBa2O Ef1CMU6of3ZoWYNeCActmtTcJuyVLoBpCGIhNksEQme8YXyvOC4LlCAhM4LtY6UrOQuqGE6BRYFbTRJh mWOsFTPnBIKfNqU7NHLzMPklCI8WfSRqLFlyIETiFM KcGhGhUSQjYCUlYOBnVCGtHFEXSS8POiHiK5DawQ77HPCUBb6+IWqjagSxWweYTbFkBLRgb7OhQPw0VR 7RZJUtRqgox6EwHvNyWXFWFDcmHM3HXKS0UVQkWLFjRw5UPUJxY176jaRnGY9ZCn8WMxVbGV1dxk3BEh NqVVMnHunFFee3QIvpNH4QgLAvNSqXYaHbKfduPLNh fSZKPLDfTMCnyKinQMNvFSJcLFBuNJ8jZEKfQNNxAqF0ODNFUD1RXCYsDUVmwVFeFIYhOZPGPE7SOKtw WSM1AWGtmkYwhRSvCKciZW4TKKTalgLgIlNeJHWJORp+Mn8PSZ4gc8OpLVgvDwMoCT2vgt4OAVfOMdPj B7E3hNRsM5S0TAnjFz3JCJAhGWCoKmoiRHMYZJhaXH 5MJV7yfbP1VT8XiXPcYLUuOCIudSPrNYc7T17ctEAdOXriJU1YITF+Daniel+Av4PHABhXMOiYRCoNvGcCR IUHkChE1HrM0BGi8TtP1FuMC35qDgtvmUsSWqgPB5XJN8cIPZfEEDTIM0SfLMnwP6rooFcFVDbWVMBRj BgJ53udAZlINPbGPThWSAkEd0JVNFjA8FtmgCoyYrj nnIdNHXkFIKOWH6JTDtoazAtqTHziImuPC18dSysAZ2HHi8TUmXfJN6ugn6SqOUgSb5LTDQuYL0YRDBh TDWjVVNcHYG8WDZiLeNiOOquVTVjWKDeMJR9MNMuIXExQY8HFhQrQZVdFvdkPrGwWWIsNBNnrh2SWEAa PPAqULc2OfFzVUPuREMqPFatSKAhTTFbANA2NESjWO AfLH2FJhVdJEYuHBJ4SGvwFTUlQKUlvw4JEBZmLGOrWqysRnJsHKFkPIDtLPylUIZhMKC1HbX0LQPbUS CoWG8ONoJqJFHtQUL9SAJdGEBnRGXjxh0LEERxGVUlSKnxXDFuINXmIGXeEZtlBLGuHAX3SHP5UPKiMQ GpQG8VGlPgMMEyFOLcFGXrOCFtGYEtbo9BBMKvITUt KGM9SHOeLAVySVIqFYifNORsRRTtBfL6YGUhMNYnVL1GNfQsZHYsEOZ3IAObMQGwRFQrxw3KBGToIDZt MJP2NUTnVQArIZChZBlnJHFkUCXfObD4MINoRPNrPW1VXyFiOJKzOOM1GVnoGOVqNIHwwa6EHOUiMAMi TlT4ViKgQEBeYFNgLIzwOBZrGXM6BKI2XSEzCYZyEY 6LEkDdPQIbVDNoFTOsVSGgTSIhtm6DUOJpYCSfHKQ8FpQaENFbIBLxRBgfJQEjQSY0JoczXWMvUOPhSU 4XHsErCDBtAwNoKPAhGEElWVZscz0FLZUaIFRsEmN0CGDeWOFwPXQeOUuwZCTySUQ0CIR5SENuVPRiJZ 8LHmRpYJEdRqS0WWErCHXlPUEech5MNAPfILFcPmCc PgOmQJNaIHJdUZujZRUaKBS7JMAsLTJvNDTtPB5HIuHqDJUlMelhFWPyRLMbRFUumg3SYJRdWHQtRHNu GsSsAOJsJFIzXIypRYJcOCO9JIhyJYXxSKTbQO9EDmKzSGNxHae7UeTqPSWmCGPtxq0BHNMdVLMeDZFm EWIlNUCnVMRcSCq5poHdoWUhKGi8XD2UV1AqhhYhIu RJTp7Wi617HQZyUZRzQx3TX0orAg3iRSEjZZQLHs2ZNPd0AWjnNlTfRiY4NWU9YWBpKNApWWJ3FKLiLX E2TMR7VVE+QXzlBcI2Q3W5NlCbWDZ7TzRnNDYdNtU5HqItKMCxJGPzXq4hJNMSJg0+DQpzdGFydHhyZW MAIoDbVqG2NLnsWOOZWb6N Procedure Social History Code Duration Value Status Description Data Source(s ) Smoking 03/14/2020 12:00:00 AM EST Unknown if ever smoked comp leted Unknown if ever smoked [facility] Smoking 03/09/2020 12:00:00 AM EST Unknown if ever smoked comp leted Unknown if ever smoked [facility]) Smoking 02/22/2020 12:00:00 AM EST Unknown if ever smoked comp leted Unknown if ever smoked [facility] ([facility]) Smoking 02/16/2020 12:00:00 AM EST Unknown if ever smoked comp leted Unknown if ever smoked [facility] ([facility]) Smoking 02/08/2020 12:00:00 AM EST Unknown if ever smoked comp leted Unknown if ever smoked [facility] ([facility]) Smoking 02/05/2020 12:00:00 AM EST Unknown if ever smoked comp leted Unknown if ever smoked [facility] ([facility]) Smoking 02/01/2020 12:00:00 AM EST Unknown if ever smoked comp leted Unknown if ever smoked [facility] ([facility]) Smoking 01/25/2020 12:00:00 AM EST Unknown if ever smoked comp leted Unknown if ever smoked [facility] ([facility]) Alcohol intake 11/26/2019 12:00:00 AM EDT Ex-drinker (finding) comp leted Ex- drinker (finding) [facility] Smoking 11/26/2019 12:00:00 AM EDT Current every day smoker co mpleted Current every day smoker [facility] Vital Signs ID Date Data Source UNK Name Value Range Interpretation Code Description Data Source(s) Diastolic blood pressure 84 mm[Hg] 84 mm[Hg] eCW1 ([facility]) Systolic blood pressure 140 mm[Hg] 140 mm[Hg] e CW1 ([facility]) Body temperature 98.2 [degF] 98.2 [degF] eCW1 ( [facility]) Respiratory rate 18 /min 18 /min eCW1 ([facility]) Heart rate 92 /min 92 /min eCW[facility] Body mass index (BMI) [Ratio] 48.80 kg/m2 48.80 kg/m2 eCW1 ([facility]) Body height 73.5 [in_us] 73.5 [in_us] eCW1 ([facility]) Body weight Measured 375 [lb_av] 375 [lb_av] eC W1 ([facility]) ID Date Data Source [id number] 02/23/2020 01:40:46 PM [facility] Name Value Range Interpretation Code Description Data Source(s) TRANSFER FROM [facility] ID Date Data Source [id number] 01/15/2020 08:46:00 AM [facility] Name Value Range Interpretation Code Description Data Source(s) TRANSFER FROM [facility] ID Date Data Source [id number] 12/02/2019 04:44:07 PM [facility] Name Value Range Interpretation Code Description Data Source(s) TRANSFER FROM [facility] Patient Treatment Plan of Care Planned Activity Planned Date Details Description Data Source (s) Cholecalciferol 1000 UNT Oral Tablet 12/02/2019 12:00:00 AM [facility] Melatonin 5 MG Oral Tablet 12/02/2019 12:00:00 AM [facility] benztropine mesylate 0.5 MG Oral Tablet 12/02/2019 12:00:00 AM [facility] olanzapine 5 MG Disintegrating Oral Tablet 12/02/2019 12:00:00 AM [facility] Nicotine 4 MG/ACTUAT Inhalant Solution 12/02/2019 12:00:00 AM [facility] olanzapine 5 MG Disintegrating Oral Tablet 11/26/2019 02:45:37 PM [facility] Magnesium Hydroxide 80 MG/ML Oral Suspension 11/26/2019 02:45:21 AM [facility] Aluminum Hydroxide 40 MG/ML / Magnesium Hydroxide 40 MG/ML / Simethicone 4 MG/ML Oral Suspension 11/26/2019 02:45:21 AM [facility] Hydroxyzine Hydrochloride 50 MG Oral Tablet 11/26/2019 02:45:21 AM [facility] Ondansetron 4 MG Disintegrating Oral Tablet 11/26/2019 02:45:21 AM [facility] Acetaminophen 325 MG Oral Tablet 11/26/2019 02:45:21 AM [facility] Sulfamethoxazole 800 MG / Trimethoprim 160 MG Oral Tab let [Bactrim] 06/01/2019 12:00:00 AM EDT eCW1 ([facility])
--- OUTSIDE RECORDS SUMMARY | 2020-03-17 16:35 | CCD ---
Author Author Harpal Pagan Organization Unknown Address [address] [address] Phone Care Team Providers Care Meter/Relay Craftsman Name Role Phone Cierra Pagan PCP Allergies, Adverse Reactions, Alerts No Data in Section Problem List Concept Problem Description Status Start Date Created Date Resolv ed Date Snomed Code F29 Unspecified Schizophrenia Spectrum and Other Psychotic Disorder Active 03/15/2020 F43.9 Unspecified Trauma- and Stressor-Related Disorder Active 03/15/2020 F15.20 Stimulant Use Disorder, Moderate: Other or unspe cified stimulant Active 03/15/2020 Z72.0 Tobacco Use Disorder, Mild Active 03/15/2020 Medications No Data in Section Social History Social History Element Description Concept Effective Date Smoking Status Unknown if ever smoked [id number] Immunizations No Data in Section Vital Signs No Data in Section Procedures Date Concept Id Description Targeted Site Concept Targeted Site Concept Type 03/14/2020 40164 Extended Individual Psychotherapy - 45 min CPT Patient has no history of implantable de vices Encounters Encounter Start Date End Date Encounter Type Description Diagnosis Di agnosis Desc Location Author First Name Author Last Name Npid Taxonomy Cod e Taxonomy Desc Phone Number Location Addr1 Location Addr2 Location [facility] Location [facility] [id number] 03/14/2020 03/14/2020 40173 Extended Individual Psych otherapy - 45 min F29 Unspecified Schizophrenia Spectrum and Other Psychotic Disorder [facility] Cierra [id number] Social Wo rker [phone] [address] [phone] Plan of Treatment No Data in Section Lab Results No Data in Section Instructions No Data in Section Insurance Providers Insurance Id Policy Effective Date Policy Thru Date Company N sienna [id number] 2020 [employer] M[facility] [employer]
--- OUTSIDE RECORDS SUMMARY | 2020-03-17 16:35 | CCD ---
Author Author Harpal Pagan Organization Unknown Address [address] [address] Phone Care Team Providers Care Tiller Man Name Role Phone Cierra Pagan PCP Allergies, Adverse Reactions, Alerts No Data in Section Problem List Concept Problem Description Status Start Date Created Date Resolv ed Date Snomed Code F43.9 Unspecified Trauma- and Stressor-Related Disorder Active 03/09/2020 F15.20 Stimulant Use Disorder, Moderate: Other or unspe cified stimulant Active 03/09/2020 Z72.0 Tobacco Use Disorder, Mild Active 03/09/2020 F29 Unspecified Schizophrenia Spectrum and Other Psychotic Disorder Active 03/09/2020 Medications No Data in Section Social History Social History Element Description Concept Effective Date Smoking Status Unknown if ever smoked [id number] Immunizations No Data in Section Vital Signs No Data in Section Procedures Date Concept Id Description Targeted Site Concept Targeted Site Concept Type 03/09/2020 45022 Extended Individual Psychotherapy - 45 min CPT Patient has no history of implantable de vices Encounters Encounter Start Date End Date Encounter Type Description Diagnosis Di agnosis Desc Location Author First Name Author Last Name Npid Taxonomy Cod e Taxonomy Desc Phone Number Location Addr1 Location Addr2 Location [facility] Location [facility] [id number] 03/09/2020 03/09/2020 82156 Extended Individual Psych otherapy - 45 min F43.9 Reaction to severe stress, unspecified [facility] Ej Moony [id number] [employer] 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
--- OUTSIDE RECORDS SUMMARY | 2020-03-17 16:35 | CCD | Summary of Care ---
Author Author [facility] Organization [facility] Address Unknown Phone Unavailable Care Team Providers Care Supervisor Cytology Name Role Phone Pcp, No PCP Unavailable Encounter Details Care Team Description Date Type Department 02/16/2020 [facility] TRANSFER CE NTER Encounter [address] [place] [address] Allergies No Known Allergiesdocumented as of this encounter (statuses as of 03/02/2020) Medications End Date Status Medication Sig Dispensed Refills Start Date 11/30/2020 Active Benztropine Mesylate 0.5 Take 1 tablet 30 tablet 0 MG Oral Tablet (COGENTIN) by mouth 0 daily Active Melatonin 5 MG Oral Take 1 tablet 30 tablet 0 11/18 Tablet by mouth 0 nightly 11/30/2020 Active Vitamin D3 25 MCG (1000 Take 1 tablet 30 tablet 0 UT) Oral Tablet by mouth 0 (CHOLECALCIFEROL) daily documented as of this encounter (statuses as of 03/02/2020) Active Problems Problem Noted Date Depression with suicidal ideation 11/25/2019 documented as of this encounter (statuses as of 03/02/2020) Social History Date Tobacco Use Types Packs/Day Years Used Current Every Day Smoker Drinks/Week oz/Week Comments Alcohol Use Not Currently Social Isolation Answer Date Recorded In a typical week, how many times do you talk on More than three times a week 11/26/2019 the phone with family, friends, or neig hbors? How often do you get together with friends or More than th ree times a week 11/26/2019 relatives? How often do you attend religious or sikhism Never 11/26/2019 services? Do you belong to any clubs or organizations such No 11/26/2019 as religious groups, unions, fraternal or athletic groups, or school groups? How often do you attend meetings of the clubs or Never 11/26/2019 organizations you belong to? Are you now , , , , Never m arried 11/26/2019 never or living with a partner? Physical Activity Answer Date Recorded On average, how many days per week do you engage 7 days 11/26/2019 in moderate to strenuous exercise (like walking fast, running, jogging, dancing, swimmi ng, biking, or other activities that cause a light or heavy sweat)? On average, how many minutes do you engage in Not as ked exercise at this level? Stress Answer Date Recorded Do you feel stress - tense, restless, nervous, or Not at a ll 11/26/2019 anxious, or unable to sleep at night be cause your mind is troubled all the time - these d ays? Education Answer Date Recorded What is the highest level of school you have Some college, no degree 11/26/2019 completed or the highest degree you hav e received? Financial Resource Strain Answer Date Recorde d How hard is it for you to pay for the very basics Somewhat hard 11/26/2019 like food, housing, medical care, and h eating? Food Insecurity Answer Date Recorded Within the past 12 months, you worried that your Sometimes true 11/26/2019 food would run out before you got money to buy more. Within the past 12 months, the food you bought Sometimes t rue 11/26/2019 just didn't last and you didn't have mo bud to get more. Transportation Needs Answer Date Recorded In the past 12 months, has lack of transportation No 11/26/2019 kept you from medical appointments or f rom getting medications? In the past 12 months, has lack of transportation No 11/26/2019 kept you from meetings, work, or gettin g things needed for daily living? Sex Assigned at Date Recorded Not on file Date Recorded COVID-19 Exposure Response 02/16/2020 11:07 AM EST In the last month, have you been in contact with No / Unsure someone who was confirmed or suspected to have Coronavirus / COVID-19? documented as of this encounter Last Filed Vital Signs Not on filedocumented in this encounter Progress Notes * Kellie Mauricio RN - 02/17/2020 8:34 AM EST I was asked to ascertain bed availability for this patient and have determined t hat no appropriate bed for this individual patient is available at either campus . This includes hallway beds or other accommodations that we would customarily m [place] for this individual patient's needs. * Timoteo Holden, RN - 02/16/2020 5:12 PM EST I was asked to ascertain bed availability for this patient and have determined t hat no appropriate bed for this individual patient is available at either campus . This includes hallway beds or other accommodations that we would customarily m [place] for this individual patient's needs. documented in this encounter Plan of Treatment Health Maintenance Due Date Last Done Comments MMR Vaccines (1 of - 1994 Standard series) Varicella Vaccines (1 of 1994 2 - 2-dose childhood series) Pneumococcal Vaccine: 1999 Pediatrics (0 to 5 Years) and At-Risk Patients (6 to 64 Years) (1 of 1 - PPSV23) DTaP,Tdap,and Td Vaccines 2000 (1 - Tdap) HIV Screening 2006 Influenza Vaccine 11/19/2019 Pneumococcal Vaccine: 65+ 2058 Years (1 of 1 - PPSV23) HIB Vaccines Aged Out No longer eligible based on patient's age to complete this topic Hepatitis A Vaccines Aged Out No longer eligibl e based on patient's age to complete this topic Hepatitis B Vaccines Aged Out No longer eligibl e based on patient's age to complete this topic IPV Vaccines Aged Out No longer eligible based on patient's age to complete this topic documented as of this encounter Results Not on filedocumented in this encounter
--- OUTSIDE RECORDS SUMMARY | 2020-03-17 17:31 | CCD ---
Author Author [facility] Organization [facility] Address Unknown Phone Unavailable Care Team Providers Care Per Diem Rn Name Role Phone KULWINDER PRAJAPATI Unavailable Unavailable LAROCK, Rebecca DOUGLAS MENU PLANNER Unavailable Unavailable LAROCK, Rebecca DOUGLAS MENU PLANNER Unavailable Unavailable LAROCK, Rebecca DOUGLAS MENU PLANNER Unavailable Unavailable LAROCK, Rebecca DOUGLAS MENU PLANNER Unavailable Unavailable LAROCK, Rebecca DOUGLAS MENU PLANNER Unavailable Unavailable LAROCK, Rebecca DOUGLAS MENU PLANNER Unavailable Unavailable LAROCK, Rebecca DOUGLAS MENU PLANNER Unavailable Unavailable LAROCK, Rebecca DOUGLAS MENU PLANNER Unavailable Unavailable LAROCK, Rebecca DOUGLAS MENU PLANNER Unavailable Unavailable LAROCK, Rebecca DOUGLAS MENU PLANNER Unavailable Unavailable LAROCK, Rebecca DOUGLAS MENU PLANNER Unavailable Unavailable LAROCK, Rebecca DOUGLAS MENU PLANNER Unavailable Unavailable LAROCK, Rebecca DOUGLAS MENU PLANNER Unavailable Unavailable LAROCK, Rebecca DOUGLAS MENU PLANNER Unavailable Unavailable LAROCK, Rebecca DOUGLAS MENU PLANNER Unavailable Unavailable LAROCK, Rebecca DOUGLAS MENU PLANNER Unavailable Unavailable LAROCK, Rebecca DOUGLAS MENU PLANNER Unavailable Unavailable LAROCK, Rebecca DOUGLAS MENU PLANNER Unavailable Unavailable LAROCK, Rebecca DOUGLAS MENU PLANNER Unavailable Unavailable LAROCK, Rebecca DOUGLAS MENU PLANNER Unavailable Unavailable LAROCK, Rebecca DOUGLAS MENU PLANNER Unavailable Unavailable TREJO, R ADRIANE MENU PLANNER Unavailable Unavailable TREJO, R ADRIANE MENU PLANNER Unavailable Unavailable TREJO, R ADRIANE MENU PLANNER Unavailable Unavailable TREJO, R ADRIANE MENU PLANNER Unavailable Unavailable TREJO, R ADRIANE MENU PLANNER Unavailable Unavailable TREJO, R ADRIANE MENU PLANNER Unavailable Unavailable TREJO, R ADRIANE MENU PLANNER Unavailable Unavailable TREJO, R ADRIANE MENU PLANNER Unavailable Unavailable TREJO, R ADRIANE MENU PLANNER Unavailable Unavailable TREJO, R ADRIANE MENU PLANNER Unavailable Unavailable TREJO, R ADRIANE MENU PLANNER Unavailable Unavailable TREJO, R ADRIANE MENU PLANNER Unavailable Unavailable TREJO, R ADRIANE MENU PLANNER Unavailable Unavailable TREJO, R ADRIANE MENU PLANNER Unavailable Unavailable TREJO, R ADRIANE MENU PLANNER Unavailable Unavailable TREJO, R ADRIANE MENU PLANNER Unavailable Unavailable TREJO, R ADRIANE MENU PLANNER Unavailable Unavailable TREJO, R ADRIANE MENU PLANNER Unavailable Unavailable TREJO, R ADRIANE MENU PLANNER Unavailable Unavailable TREJO, R ADRIANE MENU PLANNER Unavailable Unavailable TREJO, R ADRIANE MENU PLANNER Unavailable Unavailable TREJO, R ADRIANE MENU PLANNER Unavailable Unavailable TREJO, R ADRIANE MENU PLANNER Unavailable Unavailable TREJO, R ADRIANE MENU PLANNER Unavailable Unavailable TREJO, R ADRIANE MENU PLANNER Unavailable Unavailable TREJO, R ADRIANE MENU PLANNER Unavailable Unavailable TREJO, R ADRIANE MENU PLANNER Unavailable Unavailable TREJO, R ADRIANE MENU PLANNER Unavailable Unavailable TREJO, R ADRIANE MENU PLANNER Unavailable Unavailable TREJO, R ADRIANE MENU PLANNER Unavailable Unavailable TREJO, R ADRIANE MENU PLANNER Unavailable Unavailable TREJO, R ADRIANE MENU PLANNER Unavailable Unavailable TREJO, R ADRIANE MENU PLANNER Unavailable Unavailable TREJO, R ADRIANE MENU PLANNER Unavailable Unavailable TREJO, R ADRIANE MENU PLANNER Unavailable Unavailable TREJO, R ADRIANE MENU PLANNER Unavailable Unavailable TREJO, R ADRIANE MENU PLANNER Unavailable Unavailable TREJO, R ADRIANE MENU PLANNER Unavailable Unavailable TREJO, R ADRIANE MENU PLANNER Unavailable Unavailable TREJO, R ADRIANE MENU PLANNER Unavailable Unavailable TREJO, R ADRIANE MENU PLANNER Unavailable Unavailable Cierra Pagan Unavailable Cheyenne Yang Unavailable [phone] SYSTEM, NOT IN PROVIDER Unavailable Unavailable SYSTEM IN, NOT IN PROVIDER Unavailable Unavailable ELIZABETH WRIGHT MD Unavailable Unavailable ELIZABETH WRIGHT MD Unavailable Unavailable ELIZABETH WRIGHT MD Unavailable Unavailable ELIZABETH WRIGHT MD Unavailable Unavailable ELIZABETH WRIGHT MD Unavailable Unavailable ELIZABETH WRIGHT MD Unavailable Unavailable ELIZABETH WRIGHT MD Unavailable Unavailable ELIZABETH WRIGHT MD Unavailable Unavailable NITACora MD Unavailable [...] NITA S JUAN MIGUEL FERNANDEZ Unavailable Unavailable NTIACora MD Unavailable Unavailable NITACora MD Unavailable Unavailable NITA S JUAN MIGUEL FERNANDEZ Unavailable Unavailable Shen Osullivan MENU PLANNER Unavailable Unavailable Rebecca TREVIZO MD Unavailable Unavailable [...] Unavailable Unavailable Rebecca TREVIZO MD Unavailable Unavailable Rebecac TREVIZO MD Unavailable Unavailable Rebecca TREVIZO MD [...] is protected by Article 27-F of the [facility] Public Health law. If you continue you may have access to information: Regarding HIV / AIDS; Provided by facilities licensed or operated by the [facility] Office of Mental Health; or Provided by the [facility] Office for People With Developmental Disabilities. If such information is present, then the following [facility] mandated warning applies: This information has [...] law may result in a fine or detention sentence or both. A general authorization for the release of medical or other information is NOT sufficient authorization for further disc losure. Allergies and Adverse Reactions Type Description Substance Reaction Status Data Source(s ) Drug Class NO KNOWN ALLERGIES NO KNOWN ALLERGIES [facility] enviromental enviromental enviromental sneezing , itchy watety eyes Active eCW1 ([facility]) lactose lactose lactose stomach aches [facility] Allergy to substance Allergy to substance Allergy to substance [place] ([facility]) Family History Family Member Name Family Member Gender Family Member Status Date o f Status Description Data Source(s) Unknown Unknown Problem [facility] ([facility], [facility]) Encounters Encounter Providers Location Date Indications Data Source(s ) Extended Individual Psychotherapy - 45 min Attender: Vicki Pagan [facility] 03/14/2020 12:00:00 PM EST - 03/14/2020 12:00:00 PM EST [facility] ([facility]) Attender: Cierra Pagan 03/14/2020 12:00:00 AM EST [facility] ([facility]) Cheyenne Yang, [facility]-R: [address] [place] [id number], Ph. Attender: Cheyenne Yang [place] - [facility] Medical 03/10/2020 12:00:00 AM EST [place] ([facility]) Extended Individual Psychotherapy - 45 min Attender: Vicki Pagan [facility] 03/09/2020 10:30:00 AM EST - 03/09/2020 10:30:00 AM EST [facility] ([facility]) Attender: Cierra Pagan 03/09/2020 12:00:00 AM EST [facility] ([facility]) Outpatient Attender: ADRIANE TREJO NP 02/26/2020 12:00:0 0 AM [facility] [id number]"Psychotherapy Attender: Cierra Pagan [facility] 02/22/2020 03:00:00 AM EST - 02/22/2020 03:00:00 AM EST [facility] ([facility]) Attender: Cierra Pagan 02/22/2020 12:00:00 AM EST [facility] ([facility]) Outpatient Attender: SAMIR TREVIZO MD 02/22/2020 12:00:00 A M [facility] Outpatient Referrer: PROVIDER SYSTEM IN [address] [place] [address] 02/16/2020 1 1:53:00 AM EST left hand lac with cellulitis and lymphangitis with extensor tendon injury [facility] left hand lac with cellulitis and lympha ngitis with extensor tendon injury Psychiatric Diagnostic Evaluation with Medical Service s Attender: Ed Osullivan NP [facility] 02/16/2020 02:00:00 AM EST - 02/16/2020 02:00:00 AM EST [facility] ([facility]) Attender: Ed Osullivan NP 02/16/2020 12:00:00 AM EST [facility] ([facility]) [id number]"Psychotherapy Attender: Cierra Pagan [facility] 02/08/2020 02:00:00 AM EST - 02/08/2020 02:00:00 AM EST [facility] ([facility]) Attender: Cierra Pagan 02/08/2020 12:00:00 AM EST [facility] ([facility]) Psychiatric Diagnostic Evaluation (Non-Medical) Attender: Afia Pagan [facility] 02/05/2020 09:00:00 AM EST - 02/05/2020 09:00:00 AM EST [facility] ([facility]) Attender: Cierra Pagan 02/05/2020 12:00:00 AM EST [facility] ([facility]) Psychiatric Diagnostic Evaluation (Non-Medical) Attender: Afia Pagan [facility] 02/01/2020 01:00:00 AM EST - 02/01/2020 01:00:00 AM EST [facility] ([facility]) Attender: Cierra Pagan 02/01/2020 12:00:00 AM EST [facility] ([facility]) Psychiatric Diagnostic Evaluation (Non-Medical) Attender: Afia Pagan [facility] 01/25/2020 01:00:00 AM EST - 01/25/2020 01:00:00 AM EST [facility] ([facility]) Attender: Cierra Pagan 01/25/2020 12:00:00 AM EST [facility] ([facility]) Outpatient Referrer: [id number] 01/15/2020 08:3 0:00 AM EST unspecified psychosis [facility] unspecified psychosis Inpatient Attender: ELIZABETH Mata nder: JUAN MIGUEL MOYA MDAdmitter: JUAN MIGUEL MOYA MDReferrer: JUAN MIGUEL MOYA MD [id number] 11/26/2019 12:00:00 AM EDT - 12/02/2019 10:14:00 AM EDT psychosis [facility] psychosis Patient discharged. Outpatient Attender: KULWINDER [facility] 07/28/2019 07:58:[address] [facility] [place] [address] [facility] [address] 06/01/2019 12:00:00 AM EDT eCW1 ([facility]) Outpatient Referrer: STELLA GREEN NP 05/27/2019 06:25:00 AM EDT [facility] [place] [address] [facility] [address] 05/04/2019 12:00:00 AM EDT eCW1 ([facility]) Medications Medication Brand Name Start Date Product [...] 11/26/19 at 0245, For 30 days
Max [id number] per 24-hour period
[facility] Medication administered onsite Ondansetron 4 MG Disintegrating Oral Tab let ondansetron (ZOFRAN-ODT) disintegrating tablet 4 mg ondansetron (ZOFRAN-ODT) disintegrating tablet 4 mg 11/26/2019 02:45:21 AM EDT 4 mg Oral active 4 mg, Oral, Every 6 hours PRN, Nausea, Starting [facility] 11/26/19 at 0245, For 30 days
Dissolve on tongue.
[facility] Medication administered onsite Hydroxyzine Hydrochloride 50 MG Oral Tablet hydrOXYzin e (ATARAX) tablet 50 mg hydrOXYzine (ATARAX) tablet 50 mg 11/26/2019 02:45:21 AM EDT 50 mg Oral active 50 mg, Oral, Every 6 hours PRN, Anxiety, Sleep, Starting [facility] 11/26/19 at 0245, For 30 days [facility] Medication administered onsite Nicotine 4 MG/ACTUAT Inhalant Solution nicotine (NICOT ROL) inhaler 1 puff nicotine (NICOTROL) inhaler 1 puff 11/26/2019 02:45:21 AM EDT 1 {puff} Inhalation active 1 puff, Inhala tion, Every 1 hour PRN, Smoking cessation, Craving; MDD 12, Starting [facility] 11/26/19 at 0245, For 30 days
Max [id number] per 24-hour period
[facility] Medication administered onsite Magnesium Hydroxide 80 MG/ML Oral Suspen brian magnesium hydroxide (MILK OF MAGNESIA) 400 MG/5ML suspension 30 mL magnesium hydroxide (MILK OF MAGNESIA) 4 00 MG/5ML suspension 30 mL 11/26/2019 02:45:21 AM EDT 30 mL Oral active 30 mL, Oral, Daily PRN, Constipation, Starting [facility] 11/26/19 at 0245, For 30 days
Shake well before usingIf serum creatinine > 2 notify provider before administering
[facility] Medication administered onsite Trazodone Hydrochloride 100 MG Oral Tablet trazodone ( DESYREL) tablet 100 mg trazodone (DESYREL) tablet 100 mg 11/26/2019 02:45:21 AM EDT 100 mg Oral active 100 mg, Oral, Nightl y PRN, Sleep, Starting [facility] 11/26/19 at 0245, For 30 [...] hours PRN, Heartburn, Indigestion, MDD 4, Starting [facility] 11/26/19 at 0245, For 30 days
Max [id number] per 24-hour period
[facility] Medication administered onsite Sulfamethoxazole 800 MG / Trimethoprim 1 60 MG Oral Tablet [Bactrim] Bactrim DS 800-160 MG Bactrim DS 800-160 MG 06/01/2019 12:00:00 AM EDT active 1 tablet eCW1 ([facility]) Insurance Providers Payer name Policy type / Coverage type Policy ID Covered democrat ID Covered democrat's relationship to santoyo Policy Santoyo Plan Information HC COMMUNITY PLAN MCDO [id number] SP [id number] [facility] SIMON [id number] SP [id number] [facility](MCAID) O [id number] S [id number] [facility] I [id number] Self [id number] [facility] I [id number] Self [id number] [facility] [id number] SP [id number] [place] [id number] SP [id number] Medicaid Dental P UNAVAILABLE S UN AVAILABLE MEDICAID [id number] SP [id number] UNHC COMMUNITY PLAN MCDO [id number] SP [id number] MEDICAID M [id number] S [id number] MEDICAID [id number] SP [id number] SELF PAY ONLY [id number] SP [id number] MEDICAID [id number] SP [id number] [employer] [id number] SP [id number] MEDICAID [id number] SP [id number] ANSI-Medicaid [id number] ANSI-Not a Secondary Insurance [id number] [id number] MD2 [id number] SELF PAY ONLY [id number] SP [id number] MEDICAID [id number] SP [id number] PENDING GOVT INSURANCE [id number] SP [id number] [employer] [id number] MD2 [id number] [place] PPO 302/307 [id number] [employer] [id number] 2 [id number] [place]/307 [id number] [facility] [id number] SP [id number] [place] PPO 302/307 [id number] SF2 [id number] [place] P[place] 302/307 [id number] [id number] [employer] [id number] 2 [id number] SELF PAY [id number] [employer] [id number] [place] [id number] FA [id number] [employer] PPO O [id number] P [id number] BCBS/[employer] Medigap Part B Family Dependent [place] Commercial Family Dependent BCBS [place] PPO 302/307 [id number] Problems, Conditions, and Diagnoses Code Display Name Description Problem Type Effective Dates Data Source(s) Z72.0 Tobacco use Tobacco Use Disorder, Mild Condition 0 03/14/2020 12:00:00 AM EST [facility] ([facility]) 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 stimulant dependence, uncomplicate d Stimulant Use Disorder, Moderate: Other or unspecified stimulant Condition 03/14/2020 12:00:00 AM EST [facility] ([facility]) F43.9 Reaction to severe stress, unspecified U nspecified Trauma- and Stressor- Related Disorder Condition 03/14/2020 12:00:00 AM EST [facility] ([facility]) F29 Unspecified psychosis not du e to a substance or known physiological condition Unspecified Schizophrenia Spectrum and Other Psychotic Disorder Condition 03/14/2020 12:00:00 AM EST [facility] ([facility]) F29 Unspecified psychosis not du e to a substance or known physiological condition Unspecified Schizophrenia Spectrum and Other Psychotic Disorder Condition 03/09/2020 12:00:00 AM EST [facility] ([facility]) Z72.0 Tobacco use Tobacco Use Disorder, Mild Condition 0 03/09/2020 12:00:00 AM EST [facility] ([facility]) 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 stimulant dependence, uncomplicate d Stimulant Use Disorder, Moderate: Other or unspecified stimulant Condition 03/09/2020 12:00:00 AM EST [facility] ([facility]) F43.9 Reaction to severe stress, unspecified U nspecified Trauma- and Stressor- Related Disorder Condition 03/09/2020 12:00:00 AM EST [facility] ([facility]) left hand lac with cellulitis and lympha ngitis with extensor tendon injury left hand lac with cellulitis and lymphangitis with extensor tendon injury Diagnosis 02/16/2020 11:53:00 AM [facility] unspecified psychosis unspecified psychosis Diagnosis 01/15/2020 08:30:00 AM [facility] depression depression Diagnosis 01/15/2020 08:30:00 AM ES [facility] psychosis psychosis Diagnosis 11/26/2019 02:30:00 AM ED [facility] Surgeries/Procedures Procedure Description Date Indications Data Source(s) Extended Individual Psychotherapy - 45 min 03/14/2020 12:00:00 AM EST - 03/14/2020 12:00:00 AM EST [facility] ([facility]) Extended Individual Psychotherapy - 45 min 12:00:00 AM EST [facility] ([facility]) Extended Individual Psychotherapy - 45 min 03/09/2020 12:00:00 AM EST - 03/09/2020 12:00:00 AM EST [facility] ([facility]) Extended Individual Psychotherapy - 45 min 12:00:00 AM EST [facility] ([facility]) [id number]"Psychotherapy 1 12:00:00 AM EST - 02/22/2020 12:00:00 AM EST [facility] ([facility]) [id number]"Psychotherapy 02/22/2020 12:00:00 AM EST [facility] ([facility]) Psychiatric Diagnostic Evaluation with Medical Services 02/16/2020 12:00:00 AM EST - 02/16/2020 12:00:00 AM EST [facility] ([facility]) Psychiatric Diagnostic Evaluation with Medical Services 02/16/2020 12:00:00 AM EST [facility] ([facility]) [id number]"Psychotherapy 0 12:00:00 AM EST - 02/08/2020 12:00:00 AM EST [facility] ([facility]) [id number]"Psychotherapy 02/08/2020 12:00:00 AM EST [facility] ([facility]) Psychiatric Diagnostic Evaluation (Non-Medical) 02/05/2020 12:00:00 AM EST - 02/05/2020 12:00:00 AM EST [facility] ([facility]) Psychiatric Diagnostic Evaluation (Non-Medical) 2019 12:00:00 AM EST [facility] ([facility]) Psychiatric Diagnostic Evaluation (Non-Medical) 02/01/2020 12:00:00 AM EST - 02/01/2020 12:00:00 AM EST [facility] ([facility]) Psychiatric Diagnostic Evaluation (Non-Medical) 2019 12:00:00 AM EST [facility] ([facility]) Psychiatric Diagnostic Evaluation (Non-Medical) 01/25/2020 12:00:00 AM EST - 01/25/2020 12:00:00 AM EST [facility] ([facility]) Psychiatric Diagnostic Evaluation (Non-Medical) 2019 12:00:00 AM EST [facility] ([facility]) 25 HYDROXY INCLUDES FRACTIONS IF PERFORMED VITAMIN D 25 HYDROXY , TOTAL Routine 12/01/2019 12:15 PM EDT 12/01/2019 12:15:00 PM EDT [facility] COMPREHENSIVE METABOLIC PANEL COMPREHENSIVE METABOLIC PANEL Rou nestor 12/01/2019 12:15 PM EDT 12/01/2019 12:15:00 PM EDT [facility] Results ID Date Data Source [id number] 02/27/2020 01:26:00 AM EST [facility] Name Value Range Interpretation Code Description Data Anahi rce(s) Supporting Document(s) SARS-CoV-2 (COVID 19) NEGATIVE - SARS-CoV-2 (COVID19) [facility] This lab was ordered by [facility] a nd reported by [facility]. ID Date Data Source [id number] 02/17/2020 08:34:37 AM EST [facility] Name Value Range Interpretation Code Description Data Anahi rce(s) Supporting Document(s) Progress Note [facility] BDGYHh2hFyYTEqVd16/RYCylPVQxy4RzRZabMEf9WAjuXANrG8ScFKL6kI1hSYD5KSwYDgXlUuFsRqEv m [file] u6OJKtWPrlFHS1ExQrMOJxLDMwLB0nIDVIDf2+SSuufPOpnLtiSYNSQhknXaTFNwIhPM3SNMr= ID Date Data Source [id number] 02/16/2020 05:12:55 PM EST [facility] Name Value Range Interpretation Code Description Data Anahi rce(s) Supporting Document(s) Progress Note [facility] LGABCc0wZdZWAeKa71/BJKkvLJPwz5DuZQciZDo1WOohIXUuG3KgSMC1kN1iUGZ7ESmEQnPtLcUcMoM5 lbm [file] AgICAgICAgICAgICAgICAgICAgICAgICAgICAgICAgICAgICAgICAgICAgICAgICAgICAgICAgICAgIC GnRQQqZEIoALLhYSAgLU0ZCGQsEQWdWDAzEJXdGYIp ICAgICAgICAgICAgICAgICAgICAgICAgICAgICAgICAgICAgICAgICAgICAgICAgICAgICAgICAgICAg LNGiXBHdOZBpHQLhLDSePXJbABOmJOCzZQ7MQSRjNRMuQBYwQMGyGWPoMQQlDYYpYIVbEJFnUNAaSSUj ICAgICAgICAgICAgICAgICAgICAgICAgICAgICAgIC YeKYYyIMRhVJSfYBVpXBYgRUKwEESoLFWrCZAkOVPkGMVuOC1OIPUkUPSqGBCcDMSrXZXiQZMcAJYsRP AgICAgICAgICAgICAgICAgICAgICAgICAgICAgICAgICAgICAgICAgICAgICAgICAgICAgICAgICAgIC CcRHFqSKZvLIHwALHkZDDhSM0SJIEzURMbLFGsWPPm ICAgICAgICAgICAgICAgICAgICAgICAgICAgICAgICAgICAgICAgICAgICAgICAgICAgICAgICAgICAg OXKpYCTfJKHrGCXvKUOsNUHjUKEuBJXoOLCkYF1NHKCwYNPpPWXzYXKlZIToGFQpBRIsRGQkLNHuCDWr ICAgICAgICAgICAgICAgICAgICAgICAgICAgICAgIC NeIDIgLCTjKEPhINMuFBMwDWZmJFDuMZEdFLOhKCBuLMIjIBCvUW6XCCZhLCGqPQLjQZVzRJPhFQIoIY AgICAgICAgICAgICAgICAgICAgICAgICAgICAgICAgICAgICAgICAgICAgICAgICAgICAgICAgICAgIC GaCCBqKILyESEvAJMfNVUuNROiMU5ASNBbWVXxRPJl ICAgICAgICAgICAgICAgICAgICAgICAgICAgICAgICAgICAgICAgICAgICAgICAgICAgICAgICAgICAg CJLpYJLjVHKpAOHqUXItHVBsANBsSQGtEBAoVQCbKZ7VYCMzQTSoUBTwYTZwXKKjSQUeQGIuFQMmTJEy ICAgICAgICAgICAgICAgICAgICAgICAgICAgICAgIC PsZKOlEBHjFWGqLALwVMIuPVBlACEaKXPvHHZzELAmUEUoKNXhPTOhYB1TCAJoUPEcZKBpNGZjZNBrIA AgICAgICAgICAgICAgICAgICAgICAgICAgICAgICAgICAgICAgICAgICAgICAgICAgICAgICAgICAgIC YjXZUkYWDwEPVwHBSlMVSsUGRyANQsVQ2OMW09nOHq b5M3SUJtRY5tskm/Ao8YLFvtdxOkhNFjBJ8LXiFkBX8bqm2UOwYgCM4pka5JMIkCLmUwZ8A3mLDiHYFo SNQAWbGcN31kNQqmBm80DAtuFUCoUpIxXUn1Bk1RMaNuC7ntLBGlTfE7SGStFhKlDAiiNA1Ws2LxpFIk DQo+Kc7IGI6kd0OvMMpvVGKwBA8qdw6CBMnIYoZrM3 BfsfF9WMR7AUHdCh6PYPLvWRLhjVBaFIJhYQDFReEpE3AkmN05EDVWWa9+FFhdloJpIzcFTyX4FQNxo0 IgSPi2OM4EFYXxBDg4vVNjWHXgU7Woe0IzZh38PAWmWzyvNvSuQIIGGGXjhtPkW0MhYFXSPvKkhTQnZg 4dNN1aEHGfGMS4OgXrHACWFG3ZJOUnJOBvyGPdWCUc IIPBNV8FDEsoRBH3HSAxpwOylSZqRBoiXC9KNCIsgxQaKGTxGCXKJQt+Jc7RQI3tl8KqJCtlOtJzXU8e rg2RNEzYLcFqA0U8xPHoV0X5ZTavIw7CWSPiMDRvBNWgGSIXTWgmNR6PSI1xjwA2SE6QaOBcZDMuWUWd xRMgOCd1O98rdRYvJOuiVX6IBGW+Daniel+Xo2UUXPqYU AiLDVmYwYwUEADHwPdX1RgP0TXb6MzN9XfSC49wNevghJqTOzbVH2LXR1lUINgKZNHOU9WzKNvuR2vjw BpGQKvMCLCZbTpQ52pnEFcGUSxOQZaXNRdBf6FQPLgF6GfvcHsdYkzjcRcKWHwHGQAQJ9GJYvpfwFvyY UllDtbBQ08kLlxZO6ITe7RDoWkGU1edg2WhOQgDv1G GINnVs9KBFWeJEPmVZBiAMO3VBHbWmScFJsrGWWeLUDpVPH4BOJsRCOuKG2NJhYlDMLzYZZ6FdzbSXZy MPKnsn1JEHOnPGQcQzD9NTYpRXFhSSFsKJzyBCYuYCJpJMJ6AEEfHOEoAJ0KVtGmTVJmNOM6FpsrXUWh IYTmeh9MLUYuRXXkLNj0OmNdIWZqJIIhVUdeXWXaIA NzSJVtSUWbHIWoGB4KEtDtCHQmXEXoEwvoOWUcFXLbys1HPSJrSKCaKwZrTOGkSCLxXABgJDqlFHHqIA K7RvD3FDPwVACuAF6LCxStBMRaNLM1HlmqZEYiCKIgys4BVIZdPMJgMFP3DKXfTJKoTFEoUIfqMNBqKH Z0BUF4ERQwRFDkXO5LLlEpAQBrAQV1DPmaPUAzURLx bc6VAFMzXOVfElG0JHBfNQAsGDUwSEtaYDBzKXS4RgR0PGVwJMPhNF0UIyPxSKutWQSFWwx9UCfnZ2r2 KRMbHh2BP3Try6McSDWuJRYLKBivBU5gqfRxODReQp5BF4tBEderKqH3OvEuZwOdIRv9HFM2QnCuVwOn NUUtEjLiYPYtSX6rZJCmCEflSFWgUNX9DLCeLbRpUk WkJtW2ULDqKyB5QeS7LrHaFW4OQz9FLzL0DBA7sSAlBs6VXpk5Bt3AITDGM8ECRw== ID Date Data Source [id number] 02/16/2020 08:15:00 AM EST [facility] Name Value Range Interpretation Code Description Data Anahi rce(s) Supporting Document(s) SARS coronavirus 2 RNA [Presence] in Res piratory specimen by TAISHA with probe detection [facility] This lab was ordered by [facility] a nd reported by [facility]. ID Date Data Source [id number] 02/09/2020 02:50:00 PM EST [place] ([facility]) Name Value Range Interpretation Code Description Data Anahi rce(s) Supporting Document(s) ID Date Data Source [id number] 02/09/2020 02:50:00 PM EST [facility] Name Value Range Interpretation Code Description Data Anahi rce(s) Supporting Document(s) SARS coronavirus 2 RNA [facility] This lab was ordered by [facility] and reported by [facility]. ID Date Data Source [id number] 01/15/2020 08:46:00 AM EST [facility] Name Value Range Interpretation Code Description Data Anahi rce(s) Supporting Document(s) Progress Note [facility] [id number] [facility] [file] [id number] ID Date Data Source [id number] 12/02/2019 04:44:07 PM EDT [facility] Name Value Range Interpretation Code Description Data Anahi rce(s) Supporting Document(s) Discharge Summary [facility] BGWCGd0rUrIZXpTq00/NSRkwEAIxu7HxKPjdGNx8RLufTMMtC4RmPVI9iW8iPNZ4BXkYOmAdGwLvWPB3 lbm [file] 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 culture teacher+QZAryUXqCXPsIvaXzcBd4oW0cuVHxdL84FN6oP2UfsZUE0+aH6pv3WyAE+47tx7y2vTpB2mXZMzX [file] AgICAgICAgICAgICAgICAgICAgICAgICAgICAgICAgICAgICAgICAgICAgICAgICAgICAgICAgICAgIC AgICAgICAgICANCiAgICAgICAgICAgICAgICAgICAg ICAgICAgICAgICAgICAgICAgICAgICAgICAgICAgICAgICAgICAgICAgICAgICAgICAgICAgICAgICAg ICAgICAgICAgICAgICAgICAgICANCiAgICAgICAgICAgICAgICAgICAgICAgICAgICAgICAgICAgICAg ICAgICAgICAgICAgICAgICAgICAgICAgICAgICAgIC AgICAgICAgICAgICAgICAgICAgICAgICAgICAgICANCiAgICAgICAgICAgICAgICAgICAgICAgICAgIC AgICAgICAgICAgICAgICAgICAgICAgICAgICAgICAgICAgICAgICAgICAgICAgICAgICAgICAgICAgIC AgICAgICAgICAgICANCiAgICAgICAgICAgICAgICAg ICAgICAgICAgICAgICAgICAgICAgICAgICAgICAgICAgICAgICAgICAgICAgICAgICAgICAgICAgICAg ICAgICAgICAgICAgICAgICAgICAgICANCiAgICAgICAgICAgICAgICAgICAgICAgICAgICAgICAgICAg ICAgICAgICAgICAgICAgICAgICAgICAgICAgICAgIC AgICAgICAgICAgICAgICAgICAgICAgICAgICAgICAgICANCiAgICAgICAgICAgICAgICAgICAgICAgIC AgICAgICAgICAgICAgICAgICAgICAgICAgICAgICAgICAgICAgICAgICAgICAgICAgICAgICAgICAgIC AgICAgICAgICAgICAgICANCiAgICAgICAgICAgICAg ICAgICAgICAgICAgICAgICAgICAgICAgICAgICAgICAgICAgICAgICAgICAgICAgICAgICAgICAgICAg ICAgICAgICAgICAgICAgICAgICAgICAgICANCiAgICAgICAgICAgICAgICAgICAgICAgICAgICAgICAg ICAgICAgICAgICAgICAgICAgICAgICAgICAgICAgIC AgICAgICAgICAgICAgICAgICAgICAgICAgICAgICAgICAgICANCiAgICAgICAgICAgICAgICAgICAgIC AgICAgICAgICAgICAgICAgICAgICAgICAgICAgICAgICAgICAgICAgICAgICAgICAgICAgICAgICAgIC AgICAgICAgICAgICAgICAgICANCjw/aQIuO5exsJHv nkS7D4cbBg6AQb6YBH3ia6KlOWPpNAtczvWvWrsNDiPiMIKxYrwXAbt2GNhzHU0UpAZeX2KmI3TnSJss BG3EIASoHJSjpYQrOZZcBCRoNbN2FLEnEVkpPU8CkQSbZWmvNCInCAShHeFrVKPrBEYmKSFtYOVhIVZC CKWxQHPrXnSyIQPfHNRlWIrqKBLMPGK6BYUtFsQiBU HxDBMmLyEyNFBFMC3EIcBzH8JjwK99ODGcTCe+Sf7NYU8cg7NmLTu1KAWbAL8gpo9RVRwNWiOpR4Npev P4CUE0SZRzLg8JFAHbFCLxnCI3YSYyKQCAZdStN0HgdJ09YPQQAw1+BMuqrdOjEjyJNvH4DFAxp5LpXW j2BH3UVYTqCQd0tKKaWKqqY9clondaEVQ6pO2pcrxi OebxJRPhdXzxFOiwAX2oMG0EPWB6CFTbCxJ4SdOrPsGoFRg2KkBuAZ2nSZgmBW5KUGL3IAplQDAgSOKw R2iVTjQsXUBtQdZfaHowAO3IFkVnU5DikhDmkZQ5HCJtDIKTEh8+CQqcehUwMzsKOvQ3SCUak3VdVUl3 HW5ARMWeMGbrSS9DXFUwsM5wZLhlLQ1VUkU2EyBpBF ALQoKvH73mwAFyBBc9H4HuHwNgHKEcMfpiHLPhGCizFxQmNJTtNcPcEQhaKB5+ID4+WIsyMX9ECZvmxl IzIMDhBh2AJVEsOBNwGE1gTPDwQYEyN2B8xVzpFJNYJqBpX1eqxagsZT0eCEKuL515pArivxJfVJB4TI QtSi6FTUFaIIR8JAKxpPFeOHRvYXWHQRdsRV9IcMJy MSC6bX9cDZmeRUDcXDEaG1mYLrPurBamRR45zXvusuIpjSNbTJv+Av0MJU5ms8ZtJCl7uxYrKGgtSOY3 SDerMOAtHSMzPHDnVIJ2DGO3ETYFDtEiWKXdEPRvTHkoGKCiPNOexf3EIJQrOEO2NwN3EKHhTOOsKQMu JXysQKOzZHS8WtY8DZQkUPZtWU5LFiNxKPMkCFQrET jcFVLjUJDzrd5WLRGuHBVaBXyzYBDkBTBnALDgHEuyWOFqYJE5KDF5IYUvTIKcDC0HJdKrJZAuDOzeMp PrFOSzXTRatf5TLNRlGFOnUSG5JUUjCEWpXTQuHMwvCNPzBXWtJuZfKQVrETWdNU2CIaSgLCEdBTR7PQ FzUZMuKLHxda2EZSBrPDWdZYr1TkYeLIRuEHTaPZfz MCSmXHN5IBYpIFDhXOZqYZ9ZCfBdYEYbBBx5JIPqHRWvJRYqao7OJAHmLYDqQQF5TwAqEFSeMWDgHHiz RWSuLHBcQFOmDPLtWLEaDJ7FUfTkMCUrTuJcOCLsGJYbGZNtpq0YUWOhYSIiKxf0VBWuZHBfEUDuHZww GQQnFSV3DJb5NHLxWVCpWW7WKgDxBAYrMuB4GKxvRV CiYIQofn2WWTFdUABwWCg8FKQfCPSjHMQdFMirGSLvIJO3ZOB0LQMvVPLfRM3CToIeIYYnOqFpIjLvPL XjYCLnit8ODODzCFUuShltJMXoSHBmRNJlXPfrFEGaYVF9OVEePPOhBQAmPH0SQbWrAAJmTdapCKCrDH EjTRNsms1PQXKiOOXlNEX4GYJbUTOsLRDrSBmbFCPv RYG4HGrwALZcKWXdJR3PTpFeNZLbUcw7DjJnPXMoEVTxax5OSNRyZRQsTYQmQyJlGHBdLADmJRtpMPQh ZXV9VYNiDQGoWXBxUJ5FZoKnSNXzPRIbQOEdPSWxVQLkox7MVGUyUCP1MTHwAmOcRZRtNYGcFNggEQEa GUQzFtDcWPLsUEAeVM0LUwLfKWFeVHJ3UtWiPXLuLJ Gcmu1WZDZqNYG6MyHnXjTfAACrVLWqRFqyAVBtVVMrUACmHASgGSNkQJ0FWnQnZUBtFYWvEKvwTQJnYK Tzlp9OZCLhSFX4ZwBoAuDyMNVnYGXhNLapHVUtLME1BagfEYYxYNTcSH3BFoLqDRUdGUE2YiUfJESeRR Tpnk1MPXOiJWR6DAo2LqAuMPDqQYFbCKhuAJXyQEF7 UeLcYMHlRTCvXP3KUxCjZRXeUEm7QgZePUIlJVNvxm7DFWCoLDZ0WJQ3DYRyPAMrCHArTVwnPINjGEXe Tfh6KYBqOQAtLG8NEgVbTGTnYrS4RkabDECrQRUjpu9RXJSzJME6KJu7AUHzYJScQDJjEIwtOFHeZKYg TXawKLMdVNZeEM0YWuQiCIQuNpYcHoycOGVcUJTmao 9SCJPgBKZ6LjO5LIAeYYZmMVVmQBwpXKXaFKGmNsZ9TGAkWVNuCR4XXoZfJRUlYeN1OIOtRBVrVXZlpk 5NRLRuSXE9XntbKoMwWFJySNSlBEsbFOEvLOR9IXF8HICiOUYqUQ0XQgQiWMYoHwV3EOssTGEdNPQfrv 3XELLhSZK3EMV2DYShUBFbJEGsCYf3gxTesMIqJYm4 LM3XE5CpyuSlRJcTMh6Ij108PTZ4VIHvYv5YP4lbBb0fKFTaDUUPRo4WRYd9WCmfGrffIFF4WeMwXSC7 LWHmJRucLSG4EfZ6CvSvAJP+OLclK5UiTmRlBYokOMScSMahHvE3B8UiUDbwNFXwDkC1UU1lJAXAOi6+ GSkcsMBwmTdpFRAOGnH2LXuyNOwxSCPDZs0X ID Date Data Source [id number] 12/01/2019 03:38:28 PM EDT [facility] Name Value Range Interpretation Code Description Data Anahi rce(s) Supporting Document(s) Calcidiol [Mass/volume] in Serum or Plasma 29 ng/mL >30 L [facility] ID Date Data Source [id number] 12/01/2019 01:12:54 PM [facility] Name Value Range Interpretation Code Description Data Anahi rce(s) Supporting Document(s) Albumin [Mass/volume] in Serum or Plasma by Bromocresol green (BCG) dye binding method 4.0 g/[facility] Bil[facility].total [Mass/volume] in Serum or Plasma [...] >60 [facility] ID Date Data Source [id number] 11/27/2019 02:51:57 PM EDT [facility] Name Value Range Interpretation Code Description Data Anahi rce(s) Supporting Document(s) History and Physical [facility] QJUMUy0nHmQAUvUf06/LULxuFOCaz3OjVMwlXYp7QKbhPTGwW1ItPSN1dC0rMQA5WFeWYrYdArBqQWY3 lbm [file] +TGdwsPiIeudyziHyd4QfsxKl1SuuhYXkWo/OM/+MENU PLANNER [file] ICAgICAgICAgICAgICAgICAgICAgICAgICAgICAgIC AgICAgICAgICAgICAgICAgICAgICAgICAgICAgICAgICAgICAgICAgICAgICAgICAgICAgICAgICAgIC TbMEXwRD8IMEJlLURcIJOpNNYmKZEzMSApTZWdLKKlYHYwOTPhDZMbZHPsTMInYHIrIUUaXKUgNRFaQU AgICAgICAgICAgICAgICAgICAgICAgICAgICAgICAg GNKfASZwGDUcGSMxCCCjUF6FXQDgOUVvMZRxJBGaCVOmRBVuZIPkWASdUJLxSTNyPIBrJLOhRTNdBAHt EGKiGLQeYDMwOVXdTQWoGSUxIHImZYOeGTBdOZRpWHSiGTFrYMZcLQObHGIhDVCcLWCsEPNiAQBhAH8V ICAgICAgICAgICAgICAgICAgICAgICAgICAgICAgIC AgICAgICAgICAgICAgICAgICAgICAgICAgICAgICAgICAgICAgICAgICAgICAgICAgICAgICAgICAgIC QfLLCeFYFyMK3LTYZzXNHgAANfVZJxJUXfYLYrZYBkBFHdVJEnNFWiHFNoBGMmNYRuZSNpXIHmFXOoXN AgICAgICAgICAgICAgICAgICAgICAgICAgICAgICAg IKQlSNLeCENkLVXxAAZnWZVbJK7ENXNgZPWdEIVaYESsNBCcSKGuCSOnCYRxFCBsNFTeGXBnSLPxBPTa ICAgICAgICAgICAgICAgICAgICAgICAgICAgICAgICAgICAgICAgICAgICAgICAgICAgICAgICAgICAg KU0WNIFeSCKmXAMaORWrVNOtCXErLTMmTZXrHMTvOT AgICAgICAgICAgICAgICAgICAgICAgICAgICAgICAgICAgICAgICAgICAgICAgICAgICAgICAgICAgIC GyRPAcKTVbIDSoAC2RKPXuDPOqZHCiVUUxQZIzHJDmMMLwJPRvJSPzWZSmMMBxIRNnMSUuMGToAYYzPJ AgICAgICAgICAgICAgICAgICAgICAgICAgICAgICAg XGZsRNVsWCMsPBPfJRMmUWQkQYHhQW1EVYVeCOGdRPPjTDNrGBNfXUGqXGMfKJTkPWFmEETxLAUhCMCc ICAgICAgICAgICAgICAgICAgICAgICAgICAgICAgICAgICAgICAgICAgICAgICAgICAgICAgICAgICAg FWXqJH2SGU67hJEwk5F0IYGoMM6rhgp/Mr0LVTtwmf SclXZhKA3SGsPwKI5gyg0AReEtVX0twy6YKJiVMgRnR9A3uXZjENMfTXQLGaTjY01dWPskIw25SVydFE FbClWjJEk4Kn9DHdCyO9ttRJWvIgQ3WFHvZmX8YZBrXbX9LUGjBpIkXLCwBQYgPPFqCFKATJI7MUDgLr WbTfQrFJChCHrjNJZLTXDhOANxUfJaPNaqMK5Of4Pw kYJ9KLk+Ex1IOB7lz4YzREh7BfGnBM9uxf9DCEuYHiQjQ1NcpuV9JLThCIVqAu4QKWAnYFAhdJK4AgIe FZPOFqIuP4AiyZ58PNEHVo7+GVgfkvFnTrdBBwFaGLVzy0ZiKMt4LT0VIYAxLRo8wCBoZUHKXXN7YF56 z8sbyPBZoWVsHLLCKFFzbEAlOJ85NaPpDdPkJCV2Ow TyUU4cSHrhUB2QWNE5QAsoAEKeGDUwF6nNTqHoNKYmJwOaoYffLO3ZMwXtJ3BftxQqjLD6DbTnVXHFMf 4+BYfgdtAqNwdXKvV3ZZBob0EzEYe6LD4HWFMbSZbpQN9MABRsxV4iLYeeRC8FBmJ6DLDkXFTSQtTtC4 8jaKAnDVx4K4PcDvDxBBZmLqgvGGFtLUvbSyCtETFc WyBdDQogID4+ID4+RZheAM9MKCcoqvNzGAAbQc4RBNZiHBHsYQ7zMHLfJBUsK3R4rZblYOOKNiSpC0fj uknkSX3eZINlX468dTbzatIkTZHvVLQjMj3SKCGqYSH7PKRxrMIeUXOyASVTYWiqWL4UjZJdRCL5eP1j VUdgKEBdEKDmA0pCZsPlwUydJJ15pWqlneObyXNrII o+Hk0QPK4tj5KzXKu8tzTyYIwkRCT0LVsdIZSkVOXlVIPgFWV3TSQ7OOIQSkGwAOKgFTYnEHipEDJmTV Ihsq1LGLOrARM5Dxc5BqPpKTFsDBVzZJrwCGTwWOV6DWC9JVVhSWSuZS5AWaXxGOIgTSYaPIjzXWKfIP Ikna5BCQDlYGOeQYK4YTZuVJIiWIElVNxrPPGaBHZ9 PNkoWNQbXKPkSW2AZwDnQMPrPPwrSvXuAQAeNZOncw3MCGQfEHIsOjNvSDBsUGEqYAViGRvpDFWxPAQu UhO9TPYtXFMmJB8OGpZrEEEwBCQ4LWozOMRrSNOodr4MSATyECUgQtAtWISoSZOkZNZmNUdbWEGbFMKk GKL8HVDfIBOwRU9KJvDbWICrDFt6MTYkRLLmNVQkaj 3JUURfQBEoWyu7BBNuVDVyQIObWYtzJJQjUWLwJOI9KLBwVCJmKF4DCgFkDGJvIiE9EGTjHLGpAQYizo 5MXYGxAEMgKKOuCjCvQAOxPCGwURhqWOTsCZD3KwVlEWJkYKVuTG4AGbXdIWQcMwewYAKiBTIjAEEehy 1SLJYqEDXyDOSxBvGjVXWdAHVwKKiaNYJmBOIrMaK1 RGVfBCYnAW5CMpKfFVFaOwD1QhHeANWcTWVown3LGQIeHIChOfH3ZDPbMBDeZEZvYPanVBXgPLUdOUs6 TBKbLBTtCH0JNlZmRRRoCpY8JaJpXCUzOMZegr8LVCEpMQTvTVhaSNBfBXMyPFHjAFurSXAmIDY2VHWm LIGdFSMsGK0QCiShMUThKdBbOWuvUUSlZNSdmy5KYR YrBTO5MnG1TSSnFLWyGRXgLSyfNBOxIHW3ANFoLJJiGFOaUR0PDrPcKXHlGMslDqLtKQBpNRTqqg9VCA WvNNQ3SbS9IMWbTITuUNTtXGhqHNLkNVA4RPV7DWMwBHJuSM2IAnBxCNVuURiiLPBdGRCpOJNbjf7NWY LwAXX3SXWyBNSgGJVrSXEjHElaUEWpBBN2LqG0IFEk IQRcDW5GWdBsMQRcNUh9OXjxWCSxCRWgjj1ICVUaPIU5JIa1OsXnDHXrWHUkFNivJFXdAWGlDCM2ZAMl FZPvVP9ZRhDiXBCwNWT1UETvWUIlGWXdij9ZEMSoUNO6HJZcXeVrJRTzMTKmOIcjXYBvWCQ6DTUlYRZz DMZvEP3GKxHsTMJpNUJ0AdMeWNXdAJMwcu8NSAQqYO L9VVzqUhSbFHJyHSDrQFffKSAbMOS6NTR7YPCpHHQmNF7MJyMjSHTjVACzTbfiJJHwSLExwe3GWKSrGO D2ViLrGpXnNVXuDSYsJFghRYMkPUP9ClO1AFOfDFNxWJ0VZdYnOAAqGVu9IZGhWFKpAGEuqz0GNJZjTT E1EkodOUWwBDCtTBEiZVrsVBTtRUO8JoI8GMNfNDHs JR0VYtGsQRIrGJu6NTetIQIoLRIhnk4QAZZkSNU7WSk0OLRdJYKjRXRlPUvzDQOtSQY2NQF1CPTgTDPp WC9REeVvXPgvDBIPRlc5KFkyB4c3HTC1NR8YN0Nrg4EbTHCcSDXZYEhmUD3lkoOfJTTxTi5DP6hCLncf UwB5JvR2EWCxMVwqVJBsJznbDUYlISCdLEI7XtQdNn 7aBPYqXYF7DKb2AkNsAEVxPRI5YKTjD5VdEYXvJlwvCJJ9YqKvBJ0JRl3KCpH9SFE0lFZsWu5CSeQwRZ aFMaHrGT7ZHHb= ID Date Data Source [id number] 11/26/2019 04:32:50 PM EDT [facility] Name Value Range Interpretation Code Description Data Anahi rce(s) Supporting Document(s) History and Physical [facility] HCELLy8pUgVSPpGc00/ZLXlqRPWvz1JkSPqoOTi8IQfpYEDyN7HgGJG1nA6mKOC7RTmRUbUlAyLpIKS8 lbm FdWtwOMlGiAXTiDrkMBfJaFGhsRjxlqUNoUJ6TzYV6TGQtI32vTGOdGCMwA1DtOZAnZgD+Rk8RHJOlzH OjWO7FMvwP4Dkif4k69FsK/YwIU7yDrBkzOMnUhaDstwrGgrIE8JGLhe+fpkHnVmnq0Mp513EJtf38+R bZlPtsPyQHknfHe/TnTZio7q/clYZ7fwFr/P/iVz8Q bHTLvv+OLadJsZi2/BVNAguEox2/WHF8Zcs/TxpUfIQoPofvdlTAAktNfBwCvpM7vIQif/0jG/zFuA6y lYzHKpMyAaleWZvlGZVunPQzB5QvAuBepKV4Lfa7VC0onTcFkbaj0AUoqoMVnYQXnCuqrOUh9OyK6J3N Bf3cWOIPGGfRgDVhJNzkFE74fUFTHzxa1xwdmlo5ob J6w+xRLOHRyDoHeGxAiRHa4u2Qn6hz9qvEkhYklXwN7MPLddlmczqmDZV5X5rzDv4dWRh15Ah0TDNGbK stVwMwxHYntpWY0dTeJ4t+IMA0uQO8MdxajIkom0J9n8kC9VRSNKs5XpbRvyi18Ni3J7wtwAzGx6fzr7 hOlsO2fCdqFD5er9Cg16lvfH8PeTCKR/zAxa8OzzYa 8+MSVt1u84wsrK9u8awHZ9olAjvUEaQVYOa7sE0qsOZ1BBOl+TA5ua6/2boq1OpJBpdqpPDkVSD0rS2D c7v1Q0op7GZvu8GwFme++X1lempp5yHuJuwiCHUawe8Jo7c1nZjQASWvIdwy3Jlxs8wc9xg55/g23DJ/ mpqTSDLgwo4rLKCGvsDHSORdbSRJCxAeBBRp3EhTUp [file] AgICAgICAgICAgICAgICAgICAgICAgICAgICAgICAg ICAgICAgICAgICAgICAgICAgICAgICAgICAgICANCiAgICAgICAgICAgICAgICAgICAgICAgICAgICAg ICAgICAgICAgICAgICAgICAgICAgICAgICAgICAgICAgICAgICAgICAgICAgICAgICAgICAgICAgICAg ICAgICAgICAgICANCiAgICAgICAgICAgICAgICAgIC AgICAgICAgICAgICAgICAgICAgICAgICAgICAgICAgICAgICAgICAgICAgICAgICAgICAgICAgICAgIC AgICAgICAgICAgICAgICAgICAgICANCiAgICAgICAgICAgICAgICAgICAgICAgICAgICAgICAgICAgIC AgICAgICAgICAgICAgICAgICAgICAgICAgICAgICAg ICAgICAgICAgICAgICAgICAgICAgICAgICAgICAgICANCiAgICAgICAgICAgICAgICAgICAgICAgICAg ICAgICAgICAgICAgICAgICAgICAgICAgICAgICAgICAgICAgICAgICAgICAgICAgICAgICAgICAgICAg ICAgICAgICAgICAgICANCiAgICAgICAgICAgICAgIC AgICAgICAgICAgICAgICAgICAgICAgICAgICAgICAgICAgICAgICAgICAgICAgICAgICAgICAgICAgIC AgICAgICAgICAgICAgICAgICAgICAgICANCiAgICAgICAgICAgICAgICAgICAgICAgICAgICAgICAgIC AgICAgICAgICAgICAgICAgICAgICAgICAgICAgICAg ICAgICAgICAgICAgICAgICAgICAgICAgICAgICAgICAgICANCiAgICAgICAgICAgICAgICAgICAgICAg ICAgICAgICAgICAgICAgICAgICAgICAgICAgICAgICAgICAgICAgICAgICAgICAgICAgICAgICAgICAg ICAgICAgICAgICAgICAgICANCiAgICAgICAgICAgIC AgICAgICAgICAgICAgICAgICAgICAgICAgICAgICAgICAgICAgICAgICAgICAgICAgICAgICAgICAgIC AgICAgICAgICAgICAgICAgICAgICAgICAgICANCiAgICAgICAgICAgICAgICAgICAgICAgICAgICAgIC AgICAgICAgICAgICAgICAgICAgICAgICAgICAgICAg ICAgICAgICAgICAgICAgICAgICAgICAgICAgICAgICAgICAgICANCjw/uRGqJ3ntkLFindG1P4ohUs2B Su2HIF0ht1CjKUBvDXvwkrTlUfhPMfFeVJBsKngTCem2PKpvMF2QzLXzP6MtP6ImUGrwNF4VXBJeRYRq wLDvJGPiZCMsMrH5ZHUwRCmpTI4LaUZpXAxjJLUoMH AlDcAkFJFtXEMlUOSuNRBaOFAFFY6NZcUpA1XvjB37MQKGYa3+UMbirhBcUqcUZnRmJRNpj9CvJNm0VA 4HZPVnUlitz4VxJrAuWCVVTYfhUF3CTXC7XGTxQQBcXg8AOQUqM831eeMtSI4DOd4OIdKyDY0zvc7IMs RgWUBjYfnKQty7KLljPX8CqLFmUHwNNyGrRyojJSBy eUMMEYSbZQVdhZfbSQIaJFXxJGKuKP7mAVTjISRyUfX6ORVPJU1WCHUmADJeaHLhZFHzNGTCLF5TBTru OLQ1MOJojwSqdEBqUUjiDI6FOSVbzyIyVoHpPJRBLQv+Sh4VJQ7to7NePZvsYcThGI9vbh8PSLnNQjEm R8L4tOXqG5I1GJxlHc2JBLFiKSKzHnrmYLICXUkoCP 2STL0pegV4OH1JwWHsJOJrJNLzuGWcXHu5F35kjIGcZSsyEV3YKIW+Daniel+Kx7IUCTxHFJfRHKmUbHtXY NXEcOeB3WhR0WIg8DyG1VaUG58aIlebyMrRQsyIM5LUM1jRFKpRBRWUW9FwBCfqK1bmiVsUFQmZPLWIn MwI63vmQFjGSBoJESmMZViYs7OOCXjI3DahrFccGht pzAjPUAhKAYGQT9ZBAbsyvTlvZBrfMxoBT95cHksYG5PJk0DDkYlSE6zvu7FzMWbUm3DEYExFX9AHYHw QUJmAJYwBPS8UESdAnAyIXvsZOHkXJGgLZD8NNHmJSFjGB1MMsWdYTWrKwhqIkQhVGOkCMFooa1AMXEs GZFnCTs1UmPvIBHoKBViDYdgCNPwJAXjDXF7FFHpZE YtPT9XZaGbOTEiQCP6PJznYNCxCDFgqd7NJHQgPKRqAvhzElAyGKCbZQXvHGwtDHYsNWA3BeL6WTYhJZ GcKW3LXuXgXQUtAOG2FUPlVEItJAFrjh9EQUUcQDMsLNjvJYVjHZVqFSIuZJpxCWHlJZT3FSV2ZRLlAX RpLA7BYjHmUURaXFXiHGDrWPAjKNSlft1JMYGlUWKl ZOB9NYXeKFZkOWSrTEjwZKKdKBVkUvR8CHVsAADyVF3ZRdKaWGRzYEN9OKLvDYZuJFDdik7AXGSlYQYq UYF5IFLkYARpHLSqJVhuOMVbUFKiKvU2QUEqYJYoMZ0TVlQbBXJlTLI8HSkuAAGcMBIpay7KYXEmVYTq XvE1JzXuZDDbXBNpKLhwEPGfWUU7QLN7FCAzZLMnTC 4HJeBpPJOsHOItWUDpXMYwVYBsck5QLXEzMEMpVGW6PuIpYUWrTFIzQXxlDLYyGIT4HeerPSAeEGNoIV 7XDdSzGMTtQoVoTNMqXTQdRBRste5EDVXsFDYzByC4YQOhEEVfOWGzXLaeZRTgIYP2DJJ9CGHoDEVjZK 2XYzEyNSBsNmU5CRMxVZFuSFOfsm9CVEJxFNZiRoPu NwKxTQSaZTFcFQyoUHPtQOQ7YOBrVXQqEATnDD8ONdUeREHvHdhrZYXiBROnHVDbge8YIZJePFKtZAVp OnHxHKPsKYGwPWhpAGRgFZT3GWxfCUJcEXDxEJ2LOoGgCWCfSri8FaFkXONjGJVlos9JFAMqPAXfJYQl AFGtPHFlHEZyPKk8coGdaMJmOQa5DR8TB6CratYlPs WKEt5Lg097HLOtOGSsSl0WZ6grGm4xFQBdBMIEVk9CSAc0TNhoDaMlCbH7KRC8DWZpRHKfUJE8RCZgDI S4ASA4UPH+ADorCiQ0S5N5IsLhILO6GzUdOKXnSvT6JaSwBPJyUMPkHo5eEWBMFe4+DQpzdGFydHhyZW SCTvKmAcM3AOnrXRPZEx9A Procedure Social History Code Duration Value Status Description Data Source(s ) Smoking 03/14/2020 12:00:00 AM EST Unknown if ever smoked comp leted Unknown if ever smoked [facility] Smoking 03/09/2020 12:00:00 AM EST Unknown if ever smoked comp leted Unknown if ever smoked [facility] Smoking 02/22/2020 12:00:00 AM EST Unknown if ever smoked comp leted Unknown if ever smoked [facility] ([facility]) Smoking 02/16/2020 12:00:00 AM EST Unknown if ever smoked comp leted Unknown if ever smoked [facility] ([facility]) Smoking 02/08/2020 12:00:00 AM EST Unknown if ever smoked comp leted Unknown if ever smoked [facility] ([facility]) Smoking 02/05/2020 12:00:00 AM EST Unknown if ever smoked comp leted Unknown if ever smoked [facility] ([facility]) Smoking 02/01/2020 12:00:00 AM EST Unknown if ever smoked comp leted Unknown if ever smoked [facility] ([facility]) Smoking 01/25/2020 12:00:00 AM EST Unknown if ever smoked comp leted Unknown if ever smoked [facility] ([facility]) Alcohol intake 11/26/2019 12:00:00 AM EDT Ex-drinker (finding) comp leted Ex- drinker (finding) [facility] Smoking 11/26/2019 12:00:00 AM EDT Current every day smoker co mpleted Current every day smoker [facility] Vital Signs ID Date Data Source UNK Name Value Range Interpretation Code Description Data Source(s) Diastolic blood pressure 84 mm[Hg] 84 mm[Hg] eCW1 ([facility]) Systolic blood pressure 140 mm[Hg] 140 mm[Hg] e CW1 ([facility]) Body temperature 98.2 [degF] 98.2 [degF] eCW1 ( [facility]) Respiratory rate 18 /min 18 /min eCW1 ([facility]) Heart rate 92 /min 92 /min eCW1 ([facility]) Body mass index (BMI) [Ratio] 48.80 kg/m2 48.80 kg/m2 eCW1 ([facility]) Body height 73.5 [in_us] 73.5 [in_us] eCW1 ([facility]) Body weight Measured 375 [lb_av] 375 [lb_av] eC W1 ([facility]) ID Date Data Source [id number] 02/23/2020 01:40:46 PM [facility] Name Value Range Interpretation Code Description Data Source(s) TRANSFER FROM [facility] ID Date Data Source [id number] 01/15/2020 08:46:00 AM [facility] Name Value Range Interpretation Code Description Data Source(s) TRANSFER FROM [facility] ID Date Data Source [id number] 12/02/2019 04:44:07 PM [facility] Name Value Range Interpretation Code Description Data Source(s) TRANSFER FROM [facility] Patient Treatment Plan of Care Planned Activity Planned Date Details Description Data Source (s) Cholecalciferol 1000 UNT Oral Tablet 12/02/2019 12:00:00 AM [facility] Melatonin 5 MG Oral Tablet 12/02/2019 12:00:00 AM [facility] benztropine mesylate 0.5 MG Oral Tablet 12/02/2019 12:00:00 AM [facility] olanzapine 5 MG Disintegrating Oral Tablet 12/02/2019 12:00:00 AM [facility] Nicotine 4 MG/ACTUAT Inhalant Solution 12/02/2019 12:00:00 AM [facility] olanzapine 5 MG Disintegrating Oral Tablet 11/26/2019 02:45:37 PM [facility] Magnesium Hydroxide 80 MG/ML Oral Suspension 11/26/2019 02:45:21 AM [facility] Aluminum Hydroxide 40 MG/ML / Magnesium Hydroxide 40 MG/ML / Simethicone 4 MG/ML Oral Suspension 11/26/2019 02:45:21 AM [facility] Hydroxyzine Hydrochloride 50 MG Oral Tablet 11/26/2019 02:45:21 AM [facility] Ondansetron 4 MG Disintegrating Oral Tablet 11/26/2019 02:45:21 AM [facility] Acetaminophen 325 MG Oral Tablet 11/26/2019 02:45:21 AM [facility] Sulfamethoxazole 800 MG / Trimethoprim 160 MG Oral Tab let [Bactrim] 06/01/2019 12:00:00 AM EDT eCW1 ([facility])
== END 2020-03-17 17:24 | disposition left against medical advice (07) ==
LOC: M ED 16:19
DX: Z53.21 Procedure and treatment not carried out due to patient leaving prior to being seen by health care provider (principal)

== ENCOUNTER 2020-03-19 09:23 | Emergency (ER) | payer OTHER ==
[~2020-03-19] VITALS: Ht 198.1 cm; Wt 154.8 kg
[2020-03-19 09:24] VITALS: BP 135/85
--- OUTSIDE RECORDS SUMMARY | 2020-03-19 09:31 | CCD ---
Author Author [facility] Organization [facility] Address Unknown Phone Unavailable Care Team Providers Care Greens Picker Name Role Phone KULWINDER PRAJAPATI Unavailable Unavailable LAROCK, Rebecca DOUGLAS STUDENT FINAN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 Unavailable Unavailable LAROCK, Rebecca DOUGLAS STUDENT FINAN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 Unavailable Unavailable LAROCK, Rebecca DOUGLAS STUDENT FINAN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 Unavailable Unavailable LAROCK, Rebecca DOUGLAS STUDENT FINAN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 Unavailable Unavailable LAROCK, Rebecca DOUGLAS STUDENT FINAN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 Unavailable Unavailable LAROCK, Rebecca DOUGLAS STUDENT FINAN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 Unavailable Unavailable LAROCK, Rebecca DOUGLAS STUDENT FINAN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 Unavailable Unavailable LAROCK, Rebecca DOUGLAS STUDENT FINAN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 Unavailable Unavailable LAROCK, Rebecca DOUGLAS STUDENT FINAN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 Unavailable Unavailable LAROCK, Rebecca DOUGLAS STUDENT FINAN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 Unavailable Unavailable LAROCK, Rebecca DOUGLAS STUDENT FINAN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 Unavailable Unavailable LAROCK, Rebecca DOUGLAS STUDENT FINAN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 Unavailable Unavailable LAROCK, Rebecca DOUGLAS STUDENT FINAN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 Unavailable Unavailable LAROCK, Rebecca DOUGLAS STUDENT FINAN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 Unavailable Unavailable LAROCK, Rebecca DOUGLAS STUDENT FINAN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 Unavailable Unavailable LAROCK, Rebecca DOUGLAS STUDENT FINAN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 Unavailable Unavailable LAROCK, Rebecca DOUGLAS STUDENT FINAN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 Unavailable Unavailable LAROCK, Rebecca DOUGLAS STUDENT FINAN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 Unavailable Unavailable LAROCK, Rebecca DOUGLAS STUDENT FINAN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 Unavailable Unavailable LAROCK, Rebecca DOUGLAS STUDENT FINAN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 Unavailable Unavailable LAROCK, Rebecca DOUGLAS STUDENT FINAN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 Unavailable Unavailable TREJO, R ADRIANE STUDENT FINAN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 Unavailable Unavailable TREJO, R ADRIANE STUDENT FINAN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 Unavailable Unavailable TREJO, R ADRIANE STUDENT FINAN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 Unavailable Unavailable TREJO, R ADRIANE STUDENT FINAN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 Unavailable Unavailable TREJO, R ADRIANE STUDENT FINAN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 Unavailable Unavailable TREJO, R ADRIANE STUDENT FINAN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 Unavailable Unavailable TREJO, R ADRIANE STUDENT FINAN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 Unavailable Unavailable TREJO, R ADRIANE STUDENT FINAN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 Unavailable Unavailable TREJO, R ADRIANE STUDENT FINAN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 Unavailable Unavailable TREJO, R ADRIANE STUDENT FINAN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 Unavailable Unavailable TREJO, R ADRIANE STUDENT FINAN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 Unavailable Unavailable TREJO, R ADRIANE STUDENT FINAN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 Unavailable Unavailable TREJO, R ADRIANE STUDENT FINAN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 Unavailable Unavailable TREJO, R ADRIANE STUDENT FINAN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 Unavailable Unavailable TREJO, R ADRIANE STUDENT FINAN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 Unavailable Unavailable TREJO, R ADRIANE STUDENT FINAN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 Unavailable Unavailable TREJO, R ADRIANE STUDENT FINAN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 Unavailable Unavailable TREJO, R ADRIANE STUDENT FINAN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 Unavailable Unavailable TREJO, R ADRIANE STUDENT FINAN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 Unavailable Unavailable TREJO, R ADRIANE STUDENT FINAN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 Unavailable Unavailable TREJO, R ADRIANE STUDENT FINAN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 Unavailable Unavailable TREJO, R ADRIANE STUDENT FINAN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 Unavailable Unavailable TREJO, R ADRIANE STUDENT FINAN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 Unavailable Unavailable TREJO, R ADRIANE STUDENT FINAN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 Unavailable Unavailable TREJO, R ADRIANE STUDENT FINAN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 Unavailable Unavailable TREJO, R ADRIANE STUDENT FINAN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 Unavailable Unavailable TREJO, R ADRIANE STUDENT FINAN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 Unavailable Unavailable TREJO, R ADRIANE STUDENT FINAN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 Unavailable Unavailable TREJO, R ADRIANE STUDENT FINAN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 Unavailable Unavailable TREJO, R ADRIANE STUDENT FINAN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 Unavailable Unavailable TREJO, R ADRIANE STUDENT FINAN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 Unavailable Unavailable TREJO, R ADRIANE STUDENT FINAN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 Unavailable Unavailable TREJO, R ADRIANE STUDENT FINAN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 Unavailable Unavailable TREJO, R ADRIANE STUDENT FINAN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 Unavailable Unavailable TREJO, R ADRIANE STUDENT FINAN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 Unavailable Unavailable TREJO, R ADRIANE STUDENT FINAN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 Unavailable Unavailable TREJO, R ADRIANE STUDENT FINAN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 Unavailable Unavailable TREJO, R ADRIANE STUDENT FINAN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 Unavailable Unavailable TREJO, R ADRIANE STUDENT FINAN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 Unavailable Unavailable TREJO, R ADRIANE STUDENT FINAN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 Unavailable Unavailable TREJO, R ADRIANE STUDENT FINAN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 Unavailable Unavailable Cierra Pagan Unavailable Cheyenne Yang Unavailable [phone] SYSTEM, NOT IN PROVIDER Unavailable Unavailable SYSTEM [...] JUAN MIGUEL FERNANDEZ Unavailable Unavailable Shen Osullivan STUDENT FINAN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 Unavailable Unavailable Rebecca TREVIZO MD Unavailable Unavailable [...] is protected by Article 27-F of the [facility] Public Health law. If you continue you may have access to information: Regarding HIV / AIDS; Provided by facilities licensed or operated by the [facility] Office of Mental Health; or Provided by the [facility] Office for People With Developmental Disabilities. If such information is present, then the following [facility] mandated warning applies: This information has been [...] law may result in a fine or penitentiary sentence or both. A general authorization for the release of medical or other information is NOT sufficient authorization for further disc losure. Allergies and Adverse Reactions Type Description Substance Reaction Status Data Source(s ) Drug Class NO KNOWN ALLERGIES NO KNOWN ALLERGIES [facility] enviromental enviromental enviromental sneezing , itchy watety eyes Active eCW1 ([facility]) lactose lactose lactose stomach aches Active eCW1 ([facility]) Allergy to substance Allergy to substance Allergy to substance [place] ([facility]) Family History Family Member Name Family Member Gender Family Member Status Date o f Status Description Data Source(s) Unknown Unknown Problem MEDENT ([facility], [facility]) Encounters Encounter Providers Location Date Indications Data Source(s ) Extended Individual Psychotherapy - 45 min Attender: Vicki Pagan [facility] 03/14/2020 12:00:00 PM EST - 03/14/2020 12:00:00 PM EST [facility] ([facility]) Attender: Cierra Pagan 03/14/2020 12:00:00 AM EST [facility] ([facility]) Cheyenne Yang, [facility]: [address] [place] [phone], Ph. Attender: Cheyenne Yang DC - [facility] 03/10/2020 12:00:00 AM EST [place]IL[place] ([facility]) Extended Individual Psychotherapy - 45 min Attender: Vicki Pagan [facility] 03/09/2020 10:30:00 AM EST - 03/09/2020 10:30:00 AM EST [facility] ([facility]) Attender: Cierra Pagan 03/09/2020 12:00:00 AM EST [facility] ([facility]) Outpatient Attender: ADRIANE TREJO NP 02/26/2020 12:00:0 0 AM [facility] [id number]"Psychotherapy Attender: Cierra Pagan [facility] 02/22/2020 03:00:00 AM EST - 02/22/2020 03:00:00 AM EST [facility] ([facility]) Attender: Cierra Pagan 02/22/2020 12:00:00 AM EST [facility] ([facility]) Outpatient Attender: SAMIR TREVIZO MD 02/22/2020 12:00:00 A M [facility] Outpatient Referrer: PROVIDER SYSTEM IN [address] [place] [address] 02/16/2020 1 1:53:00 AM EST left hand lac with cellulitis and lymphangitis with extensor tendon injury [facility] left hand lac with cellulitis and lympha ngitis with extensor tendon injury Psychiatric Diagnostic Evaluation with Medical Service s Attender: Ed Osullivan NP [facility] 02/16/2020 02:00:00 AM EST - 02/16/2020 02:00:00 AM EST [facility] ([facility]) Attender: Ed Osullivan NP 02/16/2020 12:00:00 AM EST [facility] ([facility]) [id number]"Psychotherapy Attender: iCerra Pagan [facility] 02/08/2020 02:00:00 AM EST - 02/08/2020 02:00:00 AM EST [facility] ([facility]) Attender: Cierra Pagan 02/08/2020 12:00:00 AM EST [facility] ([facility]) Psychiatric Diagnostic Evaluation (Non-Medical) Attender: Afia Pagan [facility] 02/05/2020 09:00:00 AM EST - 02/05/2020 09:00:00 AM EST [facility] ([facility]) Attender: Cierra Pagan 02/05/2020 12:00:00 AM EST [facility] ([facility]) Psychiatric Diagnostic Evaluation (Non-Medical) Attender: Afia Pagan [facility] 02/01/2020 01:00:00 AM EST - 02/01/2020 01:00:00 AM EST [facility] ([facility]) Attender: Cierra Pagan 02/01/2020 12:00:00 AM EST [facility] ([facility]) Psychiatric Diagnostic Evaluation (Non-Medical) Attender: Afia Pagan [facility] 01/25/2020 01:00:00 AM EST - 01/25/2020 01:00:00 AM EST [facility] ([facility]) Attender: Cierra Pagan 01/25/2020 12:00:00 AM EST [facility] ([facility]) Outpatient Referrer: [id number] 01/15/2020 08:3 0:00 AM EST unspecified psychosis [facility] unspecified psychosis Inpatient Attender: ELIZABETH Mata nder: JUAN MIGUEL MOYA MDAdmitter: JUAN MIGUEL MOYA MDReferrer: JUAN MIGUEL MOYA MD [id number] 11/26/2019 12:00:00 AM EDT - 12/02/2019 10:14:00 AM EDT psychosis [facility] psychosis Patient discharged. Outpatient Attender: KULWINDER [facility] 07/28/2019 07:58:12 PM EDT [facility] [address] [facility] [address] 06/01/2019 12:00:00 AM EDT eCW1 ([facility]) Outpatient Referrer: STELLA GREEN NP 05/27/2019 06:25:00 AM EDT [facility] [address] [facility] [address] 05/04/2019 12:00:00 AM EDT eCW1 ([facility]) Medications Medication Brand Name Start Date Product [...] needed for Smoking cessation (Craving; MDD 12) [facility] benztropine mesylate 0.5 MG Oral Tablet Benztropine Mesylate 0.5 MG Oral Tablet (COGENTIN) Benztropine Mesylate 0.5 MG Oral Tablet (COGENTIN) 12:00:00 AM EDT 0.5 mg Oral active Take 1 t ablet by mouth daily [facility] Melatonin 5 MG Oral Tablet Melatonin 5 MG Oral Tablet 2019 12:00:00 AM EDT 5 mg Oral active Take 1 tablet by mouth nightly [facility] Cholecalciferol 1000 UNT Oral Tablet Vit forbes D3 25 MCG (1000 UT) Oral Tablet (CHOLECALCIFEROL) Vitamin D3 25 MCG (1000 UT) Oral Tablet (CHOLECALCIFER OL) 12/02/2019 12:00:00 AM EDT 1000 U Oral active Take 1 tablet by mouth daily [facility] olanzapine 5 MG Disintegrating Oral Tabl et OLANZapine 5 MG Oral Tablet Disintegrating (ZYPREXA) OLANZapine 5 MG Oral Tablet Disintegrating (ZYPREXA) 12/02/2019 12:00:00 AM EDT 5 mg Oral active Take 1 tablet by mouth nightly [facility] Cholecalciferol 1000 UNT Oral Tablet vit forbes D3 (CHOLECALCIFEROL) tablet 1,000 Units vitamin D3 (CHOLECALCIFEROL) tablet 1,000 Units 2019 12:15:00 PM EDT 1000 U Oral active 1,000 Un its, Oral, Daily Standard, First dose on Sat12/01/19 at 1215, For 30 days
25 mcg vitamin D3 = 1,000 international units vitamin D3.
[facility] Medication administered onsite Melatonin 5 MG Oral Tablet melatonin tablet 5 mg melatonin t ablet 5 mg 11/30/2019 10:00:00 PM EDT 5 mg Oral active 5 mg, Oral, Nightly, First dose on 11/30/19 at 2200, For 30 days [facility] Medication administered onsite benztropine mesylate 1 MG Oral Tablet benztropine (COG ENTIN) tablet 0.5 mg benztropine (COGENTIN) tablet 0.5 mg 11/29/2019 08:00:00 PM EDT 0.5 m g Oral active 0.5 mg, Oral, Da jenni Standard, First dose on 11/29/19 at 2000, For 30 days [facility] Medication administered onsite olanzapine 5 MG Disintegrating Oral Tabl et OLANZapine zydis (ZYPREXA) disintegrating tablet 5 mg OLANZapine zydis (ZYPREXA) disintegratin g tablet 5 mg 11/26/2019 10:00:00 PM EDT 5 mg Oral active 5 mg, Oral, Nightly, First dose on Jeannie 11/26/19 at 2200, For 30 days [facility] Medication administered onsite olanzapine 5 MG Disintegrating Oral Tabl et OLANZapine zydis (ZYPREXA) disintegrating tablet 5 mg OLANZapine zydis (ZYPREXA) disintegratin g tablet 5 mg 11/26/2019 02:45:37 PM EDT 5 mg Oral active 5 mg, Oral, Every 6 hours PRN, agitation, psychosis, Starting [facility] 11/26/19 at 1445, For 30 days [facility] Medication administered onsite Acetaminophen 325 MG [...] 11/26/19 at 0245, For 30 days
Max [id number] per 24-hour period
[facility] Medication administered onsite Ondansetron 4 MG Disintegrating Oral Tab let ondansetron (ZOFRAN-ODT) disintegrating tablet 4 mg ondansetron (ZOFRAN-ODT) disintegrating tablet 4 mg 11/26/2019 02:45:21 AM EDT 4 mg Oral active 4 mg, Oral, Every 6 hours PRN, Nausea, Starting [facility] 11/26/19 at 0245, For 30 days
Dissolve on tongue.
[facility] Medication administered onsite Hydroxyzine Hydrochloride 50 MG Oral Tablet hydrOXYzin e (ATARAX) tablet 50 mg hydrOXYzine (ATARAX) tablet 50 mg 11/26/2019 02:45:21 AM EDT 50 mg Oral active 50 mg, Oral, Every 6 hours PRN, Anxiety, Sleep, Starting [facility] 11/26/19 at 0245, For 30 days [facility] Medication administered onsite Nicotine 4 MG/ACTUAT Inhalant Solution nicotine (NICOT ROL) inhaler 1 puff nicotine (NICOTROL) inhaler 1 puff 11/26/2019 02:45:21 AM EDT 1 {puff} Inhalation active 1 puff, Inhala tion, Every 1 hour PRN, Smoking cessation, Craving; MDD 12, Starting [facility] 11/26/19 at 0245, For 30 days
Max [id number] per 24-hour period
[facility] Medication administered onsite Magnesium Hydroxide 80 MG/ML Oral Suspen brian magnesium hydroxide (MILK OF MAGNESIA) 400 MG/5ML suspension 30 mL magnesium hydroxide (MILK OF MAGNESIA) 4 00 MG/5ML suspension 30 mL 11/26/2019 02:45:21 AM EDT 30 mL Oral active 30 mL, Oral, Daily PRN, Constipation, Starting [facility] 11/26/19 at 0245, For 30 days
Shake well before usingIf serum creatinine > 2 notify provider before administering
[facility] Medication administered onsite Trazodone Hydrochloride 100 MG Oral Tablet trazodone ( DESYREL) tablet 100 mg trazodone (DESYREL) tablet 100 mg 11/26/2019 02:45:21 AM EDT 100 mg Oral active 100 mg, Oral, Nightl y PRN, Sleep, Starting [facility] 11/26/19 at 0245, For 30 days [facility] Medication administered onsite Aluminum Hydroxide 40 MG/ML / Magnesium Hydroxide 40 MG/ML / Simethicone 4 MG/ML Oral Suspension Alum & Mag Hydroxide-Simeth (MAALOX PLUS) 200-200-20 MG/5ML suspension 30 mL Alum & Mag Hydroxide-Simeth (MAALOX PLUS ) 200-200-20 MG/5ML suspension 30 mL 11/26/2019 02:45:21 AM EDT 30 mL Oral a ctive 30 mL, Oral, Every 4 hours PRN, Heartburn, Indigestion, MDD 4, Starting [facility] 11/26/19 at 0245, For 30 days
Max [id number] per 24-hour period
[facility] Medication administered onsite Sulfamethoxazole 800 MG / Trimethoprim 1 60 MG Oral Tablet [Bactrim] Bactrim DS 800-160 MG Bactrim DS 800-160 MG 06/01/2019 12:00:00 AM EDT active 1 tablet eCW1 ([facility]) Insurance Providers Payer name Policy type / Coverage type Policy ID Covered alliance party ID Covered alliance party's relationship to santoyo Policy Sant[employer] Plan Information HC COMMUNITY PLAN MCDO [id number] SP [id number] [facility] SIMON [id number] SP [id number] [facility](MCAID) O [id number] S [id number] [facility] I [id number] Self [id number] [facility] I [id number] Self [id number] [facility] [id number] SP [id number] [place] [id number] SP [id number] Medicaid Dental P UNAVAILABLE S UN AVAILABLE MEDICAID [id number] SP [id number] UNHC COMMUNITY PLAN MCDO [id number] SP [id number] MEDICAID M [id number] S [id number] MEDICAID [id number] SP [id number] SELF PAY ONLY [id number] SP [id number] MEDICAID [id number] SP [id number] [employer] [id number] SP [id number] MEDICAID [id number] SP [id number] ANSI-Medicaid [id number] ANSI-Not a Secondary Insurance [id number] [employer] [id number] MD2 [id number] SELF PAY ONLY [id number] SP [id number] MEDICAID [id number] SP [id number] PENDING [employer] INSURANCE [id number] SP [id number] [employer] [id number] MD2 [id number] [place] P[place] 302/307 [id number] [employer] [id number] [place] P[place] 302/307 [id number] [facility] [id number] SP [id number] [place] P[place] 302/307 [id number] SF2 [id number] [place] 302/307 [id number] [id number] [employer] [id number] SELF PAY [id number] [employer] [id number] [place] 305/805 [id number] FA [id number] [employer] PPO O [id number] P [id number] BCBS/[place] Medigap Part B Family Dependent [place] Commercial Family Dependent BCBS [place] PPO 302/307 [id number] Problems, Conditions, and Diagnoses Code Display Name Description Problem Type Effective Dates Data Source(s) Z72.0 Tobacco use Tobacco Use Disorder, Mild Condition 0 03/14/2020 12:00:00 AM EST [facility] ([facility]) 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 stimulant dependence, uncomplicate d Stimulant Use Disorder, Moderate: Other or unspecified stimulant Condition 03/14/2020 12:00:00 AM EST [facility] ([facility]) F43.9 Reaction to severe stress, unspecified U nspecified Trauma- and Stressor- Related Disorder Condition 03/14/2020 12:00:00 AM EST [facility] ([facility]) F29 Unspecified psychosis not du e to a substance or known physiological condition Unspecified Schizophrenia Spectrum and Other Psychotic Disorder Condition 03/14/2020 12:00:00 AM EST [facility] ([facility]) F29 Unspecified psychosis not du e to a substance or known physiological condition Unspecified Schizophrenia Spectrum and Other Psychotic Disorder Condition 03/09/2020 12:00:00 AM EST [facility] ([facility]) Z72.0 Tobacco use Tobacco Use Disorder, Mild Condition 0 03/09/2020 12:00:00 AM EST [facility] ([facility]) 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 stimulant dependence, uncomplicate d Stimulant Use Disorder, Moderate: Other or unspecified stimulant Condition 03/09/2020 12:00:00 AM EST [facility] ([facility]) F43.9 Reaction to severe stress, unspecified U nspecified Trauma- and Stressor- Related Disorder Condition 03/09/2020 12:00:00 AM EST [facility] ([facility]) left hand lac with cellulitis and lympha ngitis with extensor tendon injury left hand lac with cellulitis and lymphangitis with extensor tendon injury Diagnosis 02/16/2020 11:53:00 AM [facility] unspecified psychosis unspecified psychosis Diagnosis 01/15/2020 08:30:00 AM [facility] depression depression Diagnosis 01/15/2020 08:30:00 AM ES [facility] psychosis psychosis Diagnosis 11/26/2019 02:30:00 AM ED [facility] Surgeries/Procedures Procedure Description Date Indications Data Source(s) Extended Individual Psychotherapy - 45 min 03/14/2020 12:00:00 AM EST - 03/14/2020 12:00:00 AM EST [facility] ([facility]) Extended Individual Psychotherapy - 45 min 12:00:00 AM EST [facility] ([facility]) Extended Individual Psychotherapy - 45 min 03/09/2020 12:00:00 AM EST - 03/09/2020 12:00:00 AM EST [facility] ([facility]) Extended Individual Psychotherapy - 45 min 12:00:00 AM EST [facility] ([facility]) [id number]"Psychotherapy 1 12:00:00 AM EST - 02/22/2020 12:00:00 AM EST [facility] ([facility]) [id number]"Psychotherapy 02/22/2020 12:00:00 AM EST [facility] ([facility]) Psychiatric Diagnostic Evaluation with Medical Services 02/16/2020 12:00:00 AM EST - 02/16/2020 12:00:00 AM EST [facility] ([facility]) Psychiatric Diagnostic Evaluation with Medical Services 02/16/2020 12:00:00 AM EST [facility] ([facility]) [id number]"Psychotherapy 0 12:00:00 AM EST - 02/08/2020 12:00:00 AM EST [facility] ([facility]) [id number]"Psychotherapy 02/08/2020 12:00:00 AM EST [facility] ([facility]) Psychiatric Diagnostic Evaluation (Non-Medical) 02/05/2020 12:00:00 AM EST - 02/05/2020 12:00:00 AM EST [facility] ([facility]) Psychiatric Diagnostic Evaluation (Non-Medical) 2019 12:00:00 AM EST [facility] ([facility]) Psychiatric Diagnostic Evaluation (Non-Medical) 02/01/2020 12:00:00 AM EST - 02/01/2020 12:00:00 AM EST [facility] ([facility]) Psychiatric Diagnostic Evaluation (Non-Medical) 2019 12:00:00 AM EST [facility] ([facility]) Psychiatric Diagnostic Evaluation (Non-Medical) 01/25/2020 12:00:00 AM EST - 01/25/2020 12:00:00 AM EST [facility] ([facility]) Psychiatric Diagnostic Evaluation (Non-Medical) 2019 12:00:00 AM EST [facility] ([facility]) 25 HYDROXY INCLUDES FRACTIONS IF PERFORMED VITAMIN D 25 HYDROXY , TOTAL Routine 12/01/2019 12:15 PM EDT 12/01/2019 12:15:00 PM EDT [facility] COMPREHENSIVE METABOLIC PANEL COMPREHENSIVE METABOLIC PANEL Rou nestor 12/01/2019 12:15 PM EDT 12/01/2019 12:15:00 PM EDT [facility] Results ID Date Data Source [id number] 02/27/2020 01:26:00 AM EST [facility] Name Value Range Interpretation Code Description Data Anahi rce(s) Supporting Document(s) SARS-CoV-2 (COVID 19) NEGATIVE - SARS-CoV-2 (COVID19) [facility] This lab was ordered by [facility] a nd reported by [facility]. ID Date Data Source [id number] 02/17/2020 08:34:37 AM EST [facility] Name Value Range Interpretation Code Description Data Anahi rce(s) Supporting Document(s) Progress Note [facility] REBPPt9lImZMRgFn13/OUVjpLNNbw4AiJYvuGBj6MRncSLDpH9XtOMW6cP8sIZB9BKzJYdArIgXzLaUg m [file] w5MMAoMCloWFN9EtByJSLhWGAsCK9eNJQEEf5+DGqnqNTyzVemTHMLYxziUsTDTkQcWC9AZRt= ID Date Data Source [id number] 02/16/2020 05:12:[address] [facility] Name Value Range Interpretation Code Description Data Anahi rce(s) Supporting Document(s) Progress Note [facility] QSZJUq0rAhLKJeQl16/SLOnwWAZeg5YzGEmuRKl6GYnuSNTyR3RyBXI3rL6aSAP6YRhUReHmOyGgWbC9 lbm [file] AgICAgICAgICAgICAgICAgICAgICAgICAgICAgICAgICAgICAgICAgICAgICAgICAgICAgICAgICAgIC SpVYCdCUIgHMFbLBHfCR7WCFSlUKVvYJVgEIIaYDEb ICAgICAgICAgICAgICAgICAgICAgICAgICAgICAgICAgICAgICAgICAgICAgICAgICAgICAgICAgICAg FUKkBGKpKBBjOMNzAGHfLMXzOEMrFNRtVS6KOPXrSMGdTNTcYCAoFZTyOKMmLPBwMXJuAIAoWVZmJJHh ICAgICAgICAgICAgICAgICAgICAgICAgICAgICAgIC XiJKKjRUWzCTLjXLFgSKEwRFXaBODlAQBeCLSlLZDvETHuFT1PRYDeMSWzSCUdSPCwTCPnNOEjLZOiAP AgICAgICAgICAgICAgICAgICAgICAgICAgICAgICAgICAgICAgICAgICAgICAgICAgICAgICAgICAgIC VnTPDrGHXvHTBmQTDpKBGvIY8MVLYdQVKpKHLqHEJw ICAgICAgICAgICAgICAgICAgICAgICAgICAgICAgICAgICAgICAgICAgICAgICAgICAgICAgICAgICAg OWNvNIRqMMTzULNeNGRoSNZbXNFmUZUxLXQmZC9FXNVbXBTnORVjXNHlYOZxGGEgUNObPQDlGCYxVKKp ICAgICAgICAgICAgICAgICAgICAgICAgICAgICAgIC CgSKPkDSVpOIFkDCNsYXXlXOAxRBOvXNDuWLBdVTHqZBIvSVXlAE2ZKJEgFLFgQWIyDVCpIGBaONPsVE AgICAgICAgICAgICAgICAgICAgICAgICAgICAgICAgICAgICAgICAgICAgICAgICAgICAgICAgICAgIC OlMJXvYBThQUMdRWAgDZHyIPZuYY2FJSTrVKKkIHNt ICAgICAgICAgICAgICAgICAgICAgICAgICAgICAgICAgICAgICAgICAgICAgICAgICAgICAgICAgICAg HGIsRAIrBZViDFOqLWTtFWYkQRRjNQDkKTXiLAWiPQ3LNFUuKTPbUNKdOXJzFKFkQJYtGLDwMOLyXAXf ICAgICAgICAgICAgICAgICAgICAgICAgICAgICAgIC VmCKHkKFAoIJKcHRUkMBUbQFChMMLeJAKhEJVtTXPoKPCtABLzRNNoNX3IHHYwEDDoPSGkPFEcPSKuGM AgICAgICAgICAgICAgICAgICAgICAgICAgICAgICAgICAgICAgICAgICAgICAgICAgICAgICAgICAgIC LoKJPuFFUxVEXgVJFhUMFmQSAjCOLhIH7EUB42gBEu i3R8MRNyRU2ltpq/Xo3NYSmbnqQrzMAaQK5BXuObWY0nvc6WPlDjLZ4odz7FUVtNDyWfO1A2jFDfMAGr XJEUIhMqK48nGYcuVj01UAfpSOLlIoCmCQm0Ak5UMwRjF5dgUUEdDoR6VIAtJpFxGDbuUN5Vx9LszKSg DQo+Fy8OQI4ve5CeCPujRJKqJB4vnx3VJJzUJpJeI1 VtbdU5JNI8LNRdVc8HQTZeSRDmtAEgVDEhMZQRYvFnK2EmyV08OQOKGs2+XUjefaLrMykTXdF7QIOyj0 UbYQk9IP7BQMCbQVw2uCSiILFeR2Iki0PcZc06LWWrRsglTiTxAXYXLTTnfzGlG9UeKXKRVjDovXTqMr 9hAD4uQRFtYQK9XeBrEPOSJA8ISSXdUQHayVEmDGCn OCGLJA5WDVfaEAF1CMSourIkkCKiPAzhZR9FKSFgozHsVZTtPCESVYo+Fo4DMK6wa8XvAVmiLaBpEX7h zk5RZKmZCtLjF0U4gXIwR1N3TMwaRg5PSXEbBDCjKJPrAFMDBZxyJQ4XWM8igvS3TI6PvAMlJANzUNRi eECzRBr9B63iqHKcNXazMW5LJEG+Daniel+Ok2DGRUuGM DiLQTaSdChNQFQHxEoT3XjJ8DDq0VzA1TsMB17oZbkxfSlEMtgES3FIL7dMNYrWQLMDA3CzCMjfY9eub KaEOJaSDOQBnDuK38tzRFvOALjNJCbAIGrJn4KJPOtH9FnqaVqkNglvcIdEICbORGMAL0XKTxyemYgpW RktRvtOD45tQzhBK3DDn1XLuLdYA0awg7BcLEmFw7N TEZyCt0HMDRcRJMaEXZdTDU4SJNzFjBkJCuqCYOiDCYsOXC0EJOjFIRxLD7PQmLgAKTaRUT5HbpuHSTl NDCwex0VUZCcWINqWsJ2WZXtVJPsFFEyRTdwYCChWKMbNAV8TMEoKNEaEF4KBaFlIEAlYAC0NtbxVAPo GVMpxt7UNRAhYVPhQQq9RgXnVKEgYZZyINnwWBRxAS ZnOLQyXUPmQGVdED4JKjBwZGUhSOOkWbdcHSAtJTNinh6UGNPtDSOeMbYjSHSsZZXhPCYjWYkuYODdIX I3EyS2LINrENYzYG2BPhBsRZFgXIP4OwkvCSTxHIPopz9HYIVxDBIuOVX6ZUMpLBQwAWEtFNnzVIOaHI N5BHH0TRJuSDTpTN3JEsMaICTfEIE4WPajUTDtAUWw tz6JSICjVOIyOjV9HAZcDQHsRYLtRZwdQQOhGPO4RiJ4RTXjKDLqWX5MSvPhFUyfEDRSHaq9EDgjV5i0 ZLFiHl5YL2Mgc5QyWXUsFRVSISdmGN0evaVxUKAiXy8WN0vTQytjRcV4YjXySdXmTSx5VRP8WxAnImYm UBCuEsXqXPBdLM1zTDEgTTktZQOgRIV0KZZoUqQqWq MnIxW2ELKvRlF0IwA4NcZlYL6NUc1FBzZ5XKX6tTBqYr7QXbb7Py0ETAJVX8FYJp== ID Date Data Source [id number] 02/16/2020 08:15:00 AM EST [facility] Name Value Range Interpretation Code Description Data Anahi rce(s) Supporting Document(s) SARS coronavirus 2 RNA [Presence] in Res piratory specimen by TAISHA with probe detection [facility] This lab was ordered by [facility] a nd reported by [facility]. ID Date Data Source [id number] 02/09/2020 02:50:00 PM EST [facility] ([facility]) Name Value Range Interpretation Code Description Data Anahi rce(s) Supporting Document(s) ID Date Data Source [id number] 02/09/2020 02:50:00 PM EST [facility] Name Value Range Interpretation Code Description Data Anahi rce(s) Supporting Document(s) SARS coronavirus 2 RNA [facility] This lab was ordered by [facility] and reported by [facility]. ID Date Data Source [id number] 01/15/2020 08:46:00 AM EST [facility] Name Value Range Interpretation Code Description Data Anahi rce(s) Supporting Document(s) Progress Note [facility] RTNMIs0dPvCKRsDb15/DHThwSIIaz6LfARjhELr8YWqfSAIpO4FmION6yH2fGYP2CRxIDyEsIzUvPNW6 [facility] [file] y3DRv9CIgdJRAUBt9L ID Date Data Source [id number] 12/02/2019 04:44:[address] [facility] Name Value Range Interpretation Code Description Data Anahi rce(s) Supporting Document(s) Discharge Summary [facility] FGNEUv8iFtSIMnWt22/ETPyeKTHch5GqTLnxHDc6GEfcZKLlU4BfFZZ7pR8zUOW7RHuMSyPvJlIpJMD1 lbm [file] public [facility]itarian+XDHxuWDgMUVlByhMfwAv2mJ8axVWzaT51RB1rU8FzfKOT5+vA5gl9VeKH+46xd9d8bNhZ9fZFYiY [file] AgICAgICAgICAgICAgICAgICAgICAgICAgICAgICAgICAgICAgICAgICAgICAgICAgICAgICAgICAgIC AgICAgICAgICANCiAgICAgICAgICAgICAgICAgICAg ICAgICAgICAgICAgICAgICAgICAgICAgICAgICAgICAgICAgICAgICAgICAgICAgICAgICAgICAgICAg ICAgICAgICAgICAgICAgICAgICANCiAgICAgICAgICAgICAgICAgICAgICAgICAgICAgICAgICAgICAg ICAgICAgICAgICAgICAgICAgICAgICAgICAgICAgIC AgICAgICAgICAgICAgICAgICAgICAgICAgICAgICANCiAgICAgICAgICAgICAgICAgICAgICAgICAgIC AgICAgICAgICAgICAgICAgICAgICAgICAgICAgICAgICAgICAgICAgICAgICAgICAgICAgICAgICAgIC AgICAgICAgICAgICANCiAgICAgICAgICAgICAgICAg ICAgICAgICAgICAgICAgICAgICAgICAgICAgICAgICAgICAgICAgICAgICAgICAgICAgICAgICAgICAg ICAgICAgICAgICAgICAgICAgICAgICANCiAgICAgICAgICAgICAgICAgICAgICAgICAgICAgICAgICAg ICAgICAgICAgICAgICAgICAgICAgICAgICAgICAgIC AgICAgICAgICAgICAgICAgICAgICAgICAgICAgICAgICANCiAgICAgICAgICAgICAgICAgICAgICAgIC AgICAgICAgICAgICAgICAgICAgICAgICAgICAgICAgICAgICAgICAgICAgICAgICAgICAgICAgICAgIC AgICAgICAgICAgICAgICANCiAgICAgICAgICAgICAg ICAgICAgICAgICAgICAgICAgICAgICAgICAgICAgICAgICAgICAgICAgICAgICAgICAgICAgICAgICAg ICAgICAgICAgICAgICAgICAgICAgICAgICANCiAgICAgICAgICAgICAgICAgICAgICAgICAgICAgICAg ICAgICAgICAgICAgICAgICAgICAgICAgICAgICAgIC AgICAgICAgICAgICAgICAgICAgICAgICAgICAgICAgICAgICANCiAgICAgICAgICAgICAgICAgICAgIC AgICAgICAgICAgICAgICAgICAgICAgICAgICAgICAgICAgICAgICAgICAgICAgICAgICAgICAgICAgIC AgICAgICAgICAgICAgICAgICANCjw/dLJzD2htfASp ubG4R5rhLc5BBc6DUM2ma0DkUTGyRVhficFjGjfGJtWqGXUqKatGLpj5LZkqXG1MqDSkY3AgZ7FgTYeq FT1HESKcOJLvcNNwRSAzHUYzZuM5TCHnWKayEZ2SlRItVEobCMOaHGZlMoSqWBXsZEIoLZCjFKZlRVMG MAWcGKViEmEsUHCcLKHhUNpxWTGPNRO3XXWrLxPcIR ClFYLnRpBvSTHAZQ5EVzRkR8EvjC55QUJoQHy+Dh8TDU7we6QhMRd4QLPwAT5zpn6VNBjQQoWgF5Bfwk M9YYG4IRAbDn4IZGWlXQBjxJC0ZWXdHUPLNgZaH5WdxL29NNEYBj6+JEtpfcFlNdlMIdO6TOGep3QkJO m6FS4CXSXeBGf1wYXiHVnxO4stwkjbRCK5cZ9tcqhz UjvvNTDkkHhlKXdjMW2nNQ2ENGC8ZNOwVaK2QdSgYqIvELc7DhNeUT5nUYbjGV7PLNX3GKakGQBoUOYs Q6gJWjNzPUSnNbKpwPgyMT7TNvRwE3FjdwKvjWX5GPJpJWPYDy9+MOyyjsWbFpqGGjZ3NNYog8YbJUu5 RL1JUSMnHXiuGU7XVMKasM5oTQexCW5KUiG0PvQnEZ YCLmRfH71sqREeBEl1O7NfJnCkQZYwPohuLXOhZOebIqFtMNUwFjDzCXbkOU1+ID4+FFznZV7NASvgmf FpHUSvWp6KNZQnIEYzER4mPLDcADGmJ2T3eHzaMIIWTzBuB4bqfitzXN3xZQOdS402lBirenIoNUX1VF SvIg3YDKLwANL3VVOvfETnYVJpJYQIOTdkQG8AiIYm SYM0uF9lBGbtASLjRATzA2sKNnCjlTcdGU59iZhcymFdtRKhJWb+Hb7KQO7mw2OvJYe0oxEuBRdyRSC9 NMloHUYhNYSsVXYeGYV7RVM1DARYWsMiINWpOZTfWWrbWNZsTMTwui7VKIDtLMJ7YwH3SOMbUOMfRXZx AYlfLNYyADB9AnB3WPNsKLZvEY2QLqFeLPVyKQJuZW cwXVOcOQAyvu1GZATlYZZoLBwzMDQmBURlSUZzPQjbPOLaNUX2NYM9NZGjCFSyVW5HAwTfQTWmCLncFf LjHNDfPHWrqe4TWPLyNMHvACE9DLExJBUdFNWrPIqtSGRhNRCdNbJjUOOjDIXwJF8KAzGtRFLdXQM7YS EeQZSdNICqhp6LAGSiONRjDXa1VeMqSLFeZVDhSQig LGYiIZT4WOXyZXIsRDQaLV2EDmPkPWRhUZb9DGVvUWBnHLIknx2XYIRyQLIhIMR8ZyJnWXIsZFXaRKpa JZEpZAAtPNHhYXWnHXCkJV5QZnZpXYDbHeZsKFRhONTzCIAkju6WNHFfVASeSul8JWWqPEXiLKAaMJuf CAYiBEQ2GRc6IRBfWEDfZZ4ZStSnIFKdJjG0TEwrNM QjCSSgxq1BEVKtBXOpVKm0GDUgYSZfHOKuBHlwZFUqVEN2OXL8XHFkRYVcCE0STgUtVSLbByIcLpQbHY FcMIHbcm2QKXUkVEOtDsulBJTsSDWtTDBnCSiyOIJyGAX7PKXqLDLgVCAtMJ2VSdGgWXKbYwigNKWvVD NyANSlbx7QCAWlTLKzBNP1LSPjVGYlDPBiGVjaPSMl WTZ0BEuqOOYaUIUuOY2IYoPfQGEdXgc1SgXmGGMyEEXshw8VJFRhNFRtRFYcIsOsDYNuXWVaVWtoWVQs STX2INIgHIXhFCXgFF2LNkGnNQNyILVdQEIeGISjEQOyfb9HNEPxVST0MQLmQlPsYMUkOCWzSDjyQTYz TQCcXmEkGRFgJXTxRO8QRhLkYNAqTWX9ZqHjXKCkML Cucj0TDJPeZHU1EhTwBxWlHPTqTCLzZTtiTIJdJHVmBMLqFJXjTPZeVO8PPsSjZDNhECMsWItlTGIyWT Zegu7KNHNrYDJ4EaYdLgSgVYNzJVIrYLejMLQyKHM7KjcgCRRlTMIqEU6RAiGnVFTkJOY4EcUpOIZjLV Qrfn1LFJYaPDJ9CBo1JdGqSDMsKLIiHUaxTJSpNZL9 WlBaSFYnKAAgAT7ZJnMyHXFiNCk4AkOrNYCbTVPbcn1ZMZGmKZE7ZBA8RGDwYCLlJPTyVOquTJGoFVJm Xnv0EGKjXXSpMB8EJkZnDIPgCqY9ZpkwRCVyTIYllj3QNICpDOZ5FAo8HUIvZNXnZKKqSUukNCVyTELi CRdnYUMgSSIiMD2DUrMwHFPgKpRjNnnfIMPlGGAvpj 3MRMFvJMY3HoS5YUEcBWIkNEGiOOxpUPKvPWKtPhS6ASLhFLMlZL8OYpZtNNAcDyE6HDGhZDQiRZBxft 8SWHXoSCX1KqvsQoKcIGYaOVLcINmqVYIpUNB1JFM4CNZxJNQnON5ABxZmBEEdXqT4BZfgEUIwULUttm 1RQRUqWGF8CBL1LXMtRFRmGHVlZDi9okTdgAGnIRw5 NQ9TT9IycvQqXSsVTi3Fe157OOH6HLBsWz9NV0yjXo7gJAOhPBMAZt3OJLs5SMovWwyxSQZ5WrQqYKY9 QEIeHBybDBS3PgJ1GcNiRQN+GDjtE3LqPdNbYReeZCLxZDgnKyN4L3ChQVrfOGLwGiF3HL0nBTAFYp9+ XWvvdWNypBfoAFTQAeF8DWjiWKhmAUJBYj4J ID Date Data Source [id number] 12/01/2019 03:38:28 PM EDT [facility] Name Value Range Interpretation Code Description Data Anahi rce(s) Supporting Document(s) Calcidiol [Mass/volume] in Serum or Plasma 29 ng/mL >30 L [facility] ID Date Data Source [id number] 12/01/2019 01:12:54 PM [facility] Name Value Range Interpretation Code Description Data Anahi rce(s) Supporting Document(s) Albumin [Mass/volume] in Serum or Plasma by Bromocresol green (BCG) dye binding method 4.0 g/dL 3[facility]5-5[facility] Bil[facility].total [Mass/volume] in Serum or Plasma 0.3 mg/dL <1.2 [facility] Calcium [Mass/volume] in Serum or Plasma 9.2 mg/dL 8.6-10.0 [facility] Chloride [Moles/volume] in Serum or Plasma 103 mmol/L 98-107 [facility] Creatinine [Mass/volume] in Serum or Plasma 0.82 mg/dL 0.70-1.20 [facility] Glucose [Mass/volume] in Serum or Plasma 97 mg/dL 70-140 [facility] Alkaline phosphatase [Enzymatic activity/volume] in Serum or Plasma 81 U/L 40-129 [facility] Potassium [Moles/volume] in Serum or Plasma 4.1 mmol/L 3.4-5.1 [facility] Protein [Mass/volume] in Serum or Plasma 6.9 g/dL 6.4-8.3 [facility] Sodium [Moles/volume] in Serum or Plasma 139 mmol/L 136-145 [facility] Aspartate aminotransferase [Enzymatic activity/volume] in Serum or Plasma 37 U/L <40 [facility] Urea nitrogen [Mass/volume] in Serum or Plasma 9 mg/dL 6-20 [facility] Osmolality of Serum or Plasma by calculation 287 mosm/kg 275-300 [facility] Creatinine/Urea nitrogen [Mass Ratio] in Serum or Plasma 11 [facility] Bicarbonate [Moles/volume] in Serum 25 mmol/L 22-29 [facility] Alanine aminotransferase [Enzymatic activity/volume] in Seru m or Plasma 55 U/L <41 H [facility] Anion gap 3 in Serum or Plasma 11 mmol/L 8-15 [facility] Glomerular filtration rate/1.73 sq M pre dicted among non-blacks [Volume Rate/Area] in Serum or Plasma by Creatinine-based formula (MDRD) >6 0 [facility] Glomerular filtration rate/1.73 sq M pre dicted among blacks [Volume Rate/Area] in Serum or Plasma by Creatinine-based formula (MDRD) >60 [facility] ID Date Data Source [id number] 11/27/2019 02:51:57 PM EDT [facility] Name Value Range Interpretation Code Description Data Anahi rce(s) Supporting Document(s) History and Physical [facility] PCCUNg6nBdWTSnRq34/PVUmdTOLql7TzPKrxMWh0FIywSCIaP2MjHDG1cD4jFHO0WLsPTgIuJsGuIBY1 lbm [file] +GMekqJmUvkseljCfi0UypjZh2AfsnSZhVv/OM/+STUDENT [employer]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 [file] ICAgICAgICAgICAgICAgICAgICAgICAgICAgICAgIC AgICAgICAgICAgICAgICAgICAgICAgICAgICAgICAgICAgICAgICAgICAgICAgICAgICAgICAgICAgIC AxKPVsVQ0NZFHnKZLeBRViKQGzQOOtFDAbHWYfERXsCJPsBVPoNXZrEBSvSSJcDMYeBEOqYHWtUPFkUH AgICAgICAgICAgICAgICAgICAgICAgICAgICAgICAg SOGuZVTqGMHeFELvKKHrPH6INIBxNGYgPHEvIOKnMTJmGUZvGQPcROOgNOErAGMsWRQqKHBhMFPmXTPh OKGwUIAcTNYdEVCnHQDfBFZsLPEqUFReKFQsROGqJSLnIWSqUBSlOIEgDDCrUYWhAYTmFNYnKCSvTL7M ICAgICAgICAgICAgICAgICAgICAgICAgICAgICAgIC AgICAgICAgICAgICAgICAgICAgICAgICAgICAgICAgICAgICAgICAgICAgICAgICAgICAgICAgICAgIC PvHXHtTJGsQZ9HASKlJIYbYDGkEHDqHEQtUUNjEVVoGAZvAJWlVNFtQAAcVFYkIPTyVUCbIXCtGBSzOT AgICAgICAgICAgICAgICAgICAgICAgICAgICAgICAg XWRyJRXoUAHcQMKsNJThACQjXZ2OZJZpLCAuEAAtIIVxQMNrPOHgZBVmRUKkMJPjNOMmXPDbVTSuJPBs ICAgICAgICAgICAgICAgICAgICAgICAgICAgICAgICAgICAgICAgICAgICAgICAgICAgICAgICAgICAg WA0RXHOeRNUdKZUbOZXgGQTwERYeXVYeZDReKDOzZL AgICAgICAgICAgICAgICAgICAgICAgICAgICAgICAgICAgICAgICAgICAgICAgICAgICAgICAgICAgIC LxNPEeXHOaYTNcVF0LWUNuMRRmMHCnWGRyDXRyCXJxZPCySZYcLNHdYAZbCOHsLDWlHLMlBLJgXPNcAF AgICAgICAgICAgICAgICAgICAgICAgICAgICAgICAg LLGjGRCdRONrIAOxYYPnJHQcNJEaOO1EDWYyTPDfRCXvGVZqAXZxJRAeIBOiUVFkMDHfLGNbGLWnEVZm ICAgICAgICAgICAgICAgICAgICAgICAgICAgICAgICAgICAgICAgICAgICAgICAgICAgICAgICAgICAg PNHzOJ7KCU29zANqk6G9EGDzHP5bfmr/Sl1FXUeebk NzcJXfOO5LDpEnHS6egj7QQcRaIW5gtc2MAUjBHjOwR1O4cWRfPFUeGTQXCgSnR66pZPrgOu75OTuvGJ FcAzNpBEx9Wf4XQmNoE5bfAQRfZiL8HATfZzJ5BZFaMnD7IOQaTwSuWCXvHVQrBWMvODRROBC6WLYpKo GbCfCqAYZcKVblCLOACMAlEOJzAqEzNBveFJ4Ll7Hv bGM8NVd+Mi7KAP1mp9RxQMh4AySeVT9djj7XDSwQZcLlA7HnleH6QXRnIUQyZl1AHEPcDSGsgFU6UyIw PKUDYzZpP5UwbA01CGOLTt4+SKedztSvTqxFDkCzCSSxs6HeLRu0RE8IWZLmSIu8cUTmJTQQONO5DU87 k3edsWJNeEOeHUTGTNMygIHgSY79GgIfStObKOC5Vj XqDU2rXEabKS3ZZWC2XWjyJOZyHNGaK4wNEyHiTZRhFhEaaXylEH3VMnHoC8QgisByaQM7YzHjVIDABw 4+VTzcmnJcSdnIYeL4NTYui2ZlULh2OU7POZBrHAyzUD2MPRQxpE9dAKvxTO5HYvO3NWMlENSTKfFdP5 1ygJCpTTc4T3CwWiSuJQFmDimpVXXcMYmsZyDgJDJl WyBdDQogID4+ID4+CKuaYE9JNNzavgTgWCOtYg3NIOEkGHAjNX1qCTHzRSIbB1S4aYfbRXUBEcJyR6xk mkdoWW1eYHBlT044yAayrtPuQRSxXKYdRg7KIINsBBI2COGzlLErHBRcLPXKLRhmTD1TwHKoXAG5cY7x KZfnVWPbJNCjU5fRKgIysOzzRD13dCjosxHqaLDbHM o+Zj9NHU7qr3HoBSh8ybVmFVdoURI3TCroDEJlHYBzUTKbBDR4EDF7EZRPGpIbSSZkJHXePCnrTJSeZL Kjbo7WUGCgTRJ1Zbh5BkSlGLPtBIGoFZjcSAJnNXX1UPW3FOLvVYGxAM2XIbAlFCFqQLVvVMkjHAJpTC Ynpd0MRCZlVUIbVKR5QMNnHPSvWUVcIJawWEYzRNR0 SSziWYAcSLNlGB3QKdKaUBDfAZlmAhOzLFQhBFRsak7YQTXqAWJqQpVwENYwZSKjXHPaZHhwIGFtUPBq FoO9JLZyRYAxLK1QWvTqRUBvUNP6UAcaVLVcJLVzfy0JOORnRPPyTuFxHXFgGWWiNJWaDOmrKJJqQAVm DRG8PVOzQJNxBC6TTfQjOFLsGCm3NMKqAVBfZXIkum 1KOUXmEMWlVup3QPWmBVDmLEMuROeeZOFtZGWnOND4GSHtJDLfHA9KLlMkPRNjWsV2TNWiKYWoDOLznr 7LGIHeZUUjKMBcGjWfQDMtVPJqZXzqXZEeDAW5YoFrMILtPLYkQL7VRsSzPDWwJwbpQITiDHUkCFLbkh 9BNWAtEVYpSBSzFfJhPCInIWKsOKfdRTOrHPOaZhE0 UEPvHRCsGB0OKsChFVAnVeG4XgKbRVDhPFWbdh1SIZXoUOUxRwS5GGBpTPMtOFFhFJrxDFAqVPXzYSb8 UCNjAAHsAG4BPvMtVTCiKzH5VxNwWYGiKEVuks0LBVHhJZUqTPmxBJRqTXHrHVVdOOkuWNNvAEH9WELj HLWuYSBuRO6GHcXwEKUlVbFqLRttQLTtUGXgua6DXM AhZLK9VmX5ISPbCDHmXLZwSLqoOYWsWJN5OQBcFTDvZEZiHO9RQwTsYOWkJOrfCkNjHIBzBBXrym8GWX BuRGF4WvM0BFIfYIXfTNUdBQopUEJbGCK5WGE7RMLiMDYnPR3CXsAjBMApJTczBKNmUPGdHYVvhi1NRK WmGWH4AANtGEJfAAAxSKEjXDiyDHLeELG1GwL2BCIc BUYsML9BJxPqKEVkNRl0FGwjGYKbNAZleo0QIFIwWPO4PEs4ZaVqIOPqIEYoRCmqQLNpTWSzJEN7ZBMd MSRjVD3LAoPqGOImNFG0PZUhWKUdMZBfdt9LTNBuNAQ2INWxCbZyNIJxTDDiPRmnVDIbITA9FLDrKEWe CBTnPB4LRuCqWUMhKSH9IxQlDJXaGWTtzu8GZRKhNB W5QKdkRdVfOLEnJHIiSAryVJTqSUI3GBT4ZZIrAAZcYM5FGsLdAGKoCPJrYiygGECiMDOxyx9YMXXnYF S8ShLjQzIvYIVeDFFpGPthNIDvJBP5NiB1XLJjEVPwEO5JQiWkKGXuBLv0KSRiWVSmXAKzak2SEHCpAC K7KcpzUGUrSZUdGRKmJDbmNGKmCGL4EyG9EPMyJNHq TG7WFmXmLXAnEOi7TQeqTQYxUJOhcl8NVVZxGBR8QQa0EJNxZLGbKNZqXOcyVTVlKTX4USM4GQGmPZSa SB6XFdEmEUmoZCLOBwj0EOxvF0b4LUZ4NF9ZW3Ytk7AoABHvLXQPHZeqIK2ehlZgJWHbTq4BE6rRYbgt DqR7DrX9JNGzYFhqCBNdHpasPJTlBHUaQYD4NjYjYn 9oHPHkYDA3AIy2MrNnQMJtUYF3OFNeL8ZgLZXmZpwcOZD4LjIbPI1XGs5YDaS8UOC9iDMcSn0REkSjVS tFVkXiGL1WVLf= ID Date Data Source [id number] 11/26/2019 04:32:50 PM EDT [facility] Name Value Range Interpretation Code Description Data Anahi rce(s) Supporting Document(s) History and Physical [facility] XYAKTm9dKoEYItXy82/IYLbpQILww0PnMLjkLYw5BUbiCLMkX8FtAOY0vG4bXRM2KMxEAvJdVrSbBNW8 lbm JePeeNLaCdYMXrTmnNGzWgQPksXtxblYSdZQ0RxTP6BHNcT00mLDZnZFKaO4SkOWAmQsK+Cp6DROGbdO YzJJ7BDikU2Swrw1w03HbA/MqLH2nGcNtmYBeIjtItvtkBjqDM1TLAzv+qxcChFpct3Xn242OQur75+R bZlPtsPyQHknfHe/DnQMgl4a/lkBG2laCv/P/iVz8Q bHTLvv+OLadJsZi2/BVNAguEox2/NRZ8Fsj/NyqHdRUyTedcnrDAKqbNqFdCirA6yLDds/0jG/zFuA6y rMyBEzJzUpnlHLrcHEHfsAUvD2KbJcCpcZQ0Bsh5UB4eeRmKpmrc2NRkhtTTvONFsAqgwKSs2OpX4Q4O Vd8yCVXIACyFmJMpNOydBL57qGEQRuhm0fpgute2bj J6w+dWVKNNhByFcCrJtWTq8x3Hn3hq4kiEcaKnbCyB0KDRycjoophkBGB0C1dmFv7nPPc40Bm7HXZKcI raLtWznHWwxbBT7wEwK7a+UPU2lLK7BhelgUaau9R5u6sR3IHMPKv1BkfVfrk95Ww3G4zyvYrNk7fgl8 wHjjX6fInlRX6jn8Mj83xopW6DpYRKS/hZts2IqhNh 8+GCKn3f34pxfZ4r2dtGW2vaQhoPFtUQXKg5oH0ufBZ5HNLh+TA5ua6/1moq5AkFHxiomBWfVZD5xW3U n4i5Z0bb9QWgb2GiNbq++A1lhsei7aPvMaplOJUcvx0Cg6b5tEiMRIAjHkqy1Cnbi1xh8xu52/g23DJ/ chmTSNEhae8tRZWIrzASFKBmeQKPInVbGYUm9RvLCi [file] AgICAgICAgICAgICAgICAgICAgICAgICAgICAgICAg ICAgICAgICAgICAgICAgICAgICAgICAgICAgICANCiAgICAgICAgICAgICAgICAgICAgICAgICAgICAg ICAgICAgICAgICAgICAgICAgICAgICAgICAgICAgICAgICAgICAgICAgICAgICAgICAgICAgICAgICAg ICAgICAgICAgICANCiAgICAgICAgICAgICAgICAgIC AgICAgICAgICAgICAgICAgICAgICAgICAgICAgICAgICAgICAgICAgICAgICAgICAgICAgICAgICAgIC AgICAgICAgICAgICAgICAgICAgICANCiAgICAgICAgICAgICAgICAgICAgICAgICAgICAgICAgICAgIC AgICAgICAgICAgICAgICAgICAgICAgICAgICAgICAg ICAgICAgICAgICAgICAgICAgICAgICAgICAgICAgICANCiAgICAgICAgICAgICAgICAgICAgICAgICAg ICAgICAgICAgICAgICAgICAgICAgICAgICAgICAgICAgICAgICAgICAgICAgICAgICAgICAgICAgICAg ICAgICAgICAgICAgICANCiAgICAgICAgICAgICAgIC AgICAgICAgICAgICAgICAgICAgICAgICAgICAgICAgICAgICAgICAgICAgICAgICAgICAgICAgICAgIC AgICAgICAgICAgICAgICAgICAgICAgICANCiAgICAgICAgICAgICAgICAgICAgICAgICAgICAgICAgIC AgICAgICAgICAgICAgICAgICAgICAgICAgICAgICAg ICAgICAgICAgICAgICAgICAgICAgICAgICAgICAgICAgICANCiAgICAgICAgICAgICAgICAgICAgICAg ICAgICAgICAgICAgICAgICAgICAgICAgICAgICAgICAgICAgICAgICAgICAgICAgICAgICAgICAgICAg ICAgICAgICAgICAgICAgICANCiAgICAgICAgICAgIC AgICAgICAgICAgICAgICAgICAgICAgICAgICAgICAgICAgICAgICAgICAgICAgICAgICAgICAgICAgIC AgICAgICAgICAgICAgICAgICAgICAgICAgICANCiAgICAgICAgICAgICAgICAgICAgICAgICAgICAgIC AgICAgICAgICAgICAgICAgICAgICAgICAgICAgICAg ICAgICAgICAgICAgICAgICAgICAgICAgICAgICAgICAgICAgICANCjw/qSJdW2mdtDEzqgX7B2riQs3D Zs4ZZH5sa7TaIUBsBPfsxuRoGwyJZnObGSNdYffPUmq6ZWuuLU6YdNCuD0CxT9RmHYgiUB3ZMUZgHJGm oFToKZKjOQRvUlK6QJArPRnpAG1DaWVzDTboXGYrDP FiNuDpXDGgTGTdGYDrARIyTMFYKH4IXfHtA5CmbY98EFSNWz7+JCywznPbMcxIRsXrWQTky3EkSRu1DK 9VDWPvAnfof5GpSbGqKVBIYDqaTO1UCAL3QJVhYRSgLz0IPPJiF187piDbLO2NSn4FLwXfPB4nzh9KEl GrXISyMypIVtt3TPtvZC9UcQInEIgSNgDyKuwnIQNc vGBNTXCqISMnpZmmSFDwJIIqBWWcLS9cYIDvPOKzSlB7CIWHJL4BNNRiDMBpfYTfGSSxHIHCAA4PIMpv JEO3TCTbboAszUPiMOfmVP5AEVDaizWiEyEeCVTKHPl+Yb8CIK5se0LjOQzrFyTlST7uje0NPJwFEdQw L2B8qIZrI7P5EIpcZn2WHIVzUZLgJpinFJDUGLbvYM 2SLU6lseP7QI6DhVEjFPFvZEKsqFEdKZj2B38rdNUpDHdoPU0WAIE+Daniel+Iw3XLCNwPZSzAODwIdAbLI KPUzFdZ8AgG0FIb2TrU3PmKT88sMqpaiHoWCoaWC8INY7uKKQnVBYXZF0WtOUkmP5zgrJwOYMzAEFTSr ZcH39rpWFaHCCwPLFtAUAsNa7JHWOfU1VckyYazQtq faEpCUWlALCLFL9PUXidclWroTFopJtzVB66gVeqJX3OYg5ARsKiCQ3xea7CvWRvMo8NJHDvFP6QYBCi AJNyQJOfZXI7CNKkKbWcYRppDDOzGJPjMPY4RBKfGCCnKR3NBgSrUUBrZuadDqZwZSNqQRFucy4ZYVLi EIIqURf3SiEhWNSbGZPfYSueZJGnKGUnLAW4ELViTZ GbUE4FDwWlRSGzGFV7WGyoVECaLAEdlj8EZREnKOTpYeowYqFgFVSaJUUhPDrfNBFrAQN5WbX9IAHaNC QaQV3GPzXwPVUaGHB7VNFqKPYaQUZgnk6RCJZuQYTrLKexJXErYJNhENDfGOniIJNjCQA8YRT6CZMlVD TuOI2XBpNcOUQfLDLzYKVnYWXpZWYkom0CONSzLVWc XDQ5ZIIoYBKgOUUnRNjmORHwWDYxKtC6APNxIQRvFC5WKyYhHWZvDKZ4EFOeFGHnRSDzhs3UUGYfDWEk VLZ4KVNlKCBxTRTtFDiwLSYyESYaUzS2HKPbCDJpWC4UXnOiQIZtLDV7OYrnVVDbNFJhhe8WFMErNKMv QsQ6BnMaNXFoLOMeLYwjGQNgVWE4PNR6KULnVEQsEZ 1BTiUvJDXsGPJwMSQnDSJfVVEqdc2JFECfUZTrJQH9TsHeWSBcIEGmRCjmDIOxQOS5FykuBWBuAWRjFZ 0DDiVpPVVvFgFkOYMgIWVlKQRugf5OJXMoCJLaLnZ1MXKjEWJlCUZfKEezRDDxRPE1NAY1MQTuONBoXH 6IWnSiBKOsSfA5LZLfOXKgBLHcdb2QHQYrQOWlXqSh PnDhTQXwLUMoLGuxOEOdZVP9IWEaXGFnNBXiLP3YBbIpDGKaAjxnJBHzGCIpREJerw4NWLGzPYCdZCQe GsFfNBIrIWIkDWvxZDXwBLJ0PNljJMJjLMPlEB7FWcXgKDHqVpa0VhZbTCRrWZKmri9MYYHaDYHlAOOl GHZvNWAnTXSxUPa3wnZekHHiRIv5GA9SE4ElriIhUe YIVv2Jy207AGHvGSWjDy4GB0dqUu3kXOVvUPDBIp5ZWCa8LXwrYlVvYxI4NJU2ROFlRLYwGUY5YNIaCF L1CJZ3ECD+UPbmJxE2K8G8JlXqDWV1HwBzCDDpMuL9RwBjWZWtSXPmLx0mNMHZYd4+DQpzdGFydHhyZW GJOmNhKaJ8GNtbDHKJBa0F Procedure Social History Code Duration Value Status Description Data Source(s ) Smoking 03/14/2020 12:00:00 AM EST Unknown if ever smoked comp leted Unknown if ever smoked [facility] Smoking 03/09/2020 12:00:00 AM EST Unknown if ever smoked comp leted Unknown if ever smoked [facility] Smoking 02/22/2020 12:00:00 AM EST Unknown if ever smoked comp leted Unknown if ever smoked [facility]) Smoking 02/16/2020 12:00:00 AM EST Unknown if ever smoked comp leted Unknown if ever smoked [facility] ([facility]) Smoking 02/08/2020 12:00:00 AM EST Unknown if ever smoked comp leted Unknown if ever smoked [facility] ([facility]) Smoking 02/05/2020 12:00:00 AM EST Unknown if ever smoked comp leted Unknown if ever smoked [facility] ([facility]) Smoking 02/01/2020 12:00:00 AM EST Unknown if ever smoked comp leted Unknown if ever smoked [facility] Smoking 01/25/2020 12:00:00 AM EST Unknown if ever smoked comp leted Unknown if ever smoked [facility] ([facility]) Alcohol intake 11/26/2019 12:00:00 AM EDT Ex-drinker (finding) comp leted Ex- drinker (finding) [facility] Smoking 11/26/2019 12:00:00 AM EDT Current every day smoker co mpleted Current every day smoker [facility] Vital Signs ID Date Data Source UNK Name Value Range Interpretation Code Description Data Source(s) Diastolic blood pressure 84 mm[Hg] 84 mm[Hg] eCW1 ([facility]) Systolic blood pressure 140 mm[Hg] 140 mm[Hg] e CW1 ([facility]) Body temperature 98.2 [degF] 98.2 [degF] eCW1 ( [facility]) Respiratory rate 18 /min 18 /min eCW1 ([facility]) Heart rate 92 /min 92 /min eCW1 ([facility]) Body mass index (BMI) [Ratio] 48.80 kg/m2 48.80 kg/m2 eCW1 ([facility]) Body height 73.5 [in_us] 73.5 [in_us] eCW1 ([facility]) Body weight Measured 375 [lb_av] 375 [lb_av] eC W1 ([facility]) ID Date Data Source [id number] 02/23/2020 01:40:46 PM [facility] Name Value Range Interpretation Code Description Data Source(s) TRANSFER FROM [facility] ID Date Data Source [id number] 01/15/2020 08:46:00 AM [facility] Name Value Range Interpretation Code Description Data Source(s) TRANSFER FROM [facility] ID Date Data Source [id number] 12/02/2019 04:44:07 PM [facility] Name Value Range Interpretation Code Description Data Source(s) TRANSFER FROM [facility] Patient Treatment Plan of Care Planned Activity Planned Date Details Description Data Source (s) Cholecalciferol 1000 UNT Oral Tablet 12/02/2019 12:00:00 AM [facility] Melatonin 5 MG Oral Tablet 12/02/2019 12:00:00 AM [facility] benztropine mesylate 0.5 MG Oral Tablet 12/02/2019 12:00:00 AM [facility] olanzapine 5 MG Disintegrating Oral Tablet 12/02/2019 12:00:00 AM [facility] Nicotine 4 MG/ACTUAT Inhalant Solution 12/02/2019 12:00:00 AM [facility] olanzapine 5 MG Disintegrating Oral Tablet 11/26/2019 02:45:37 PM [facility] Magnesium Hydroxide 80 MG/ML Oral Suspension 11/26/2019 02:45:21 AM [facility] Aluminum Hydroxide 40 MG/ML / Magnesium Hydroxide 40 MG/ML / Simethicone 4 MG/ML Oral Suspension 11/26/2019 02:45:21 AM [facility] Hydroxyzine Hydrochloride 50 MG Oral Tablet 11/26/2019 02:45:21 AM [facility] Ondansetron 4 MG Disintegrating Oral Tablet 11/26/2019 02:45:21 AM [facility] Acetaminophen 325 MG Oral Tablet 11/26/2019 02:45:21 AM [facility] Sulfamethoxazole 800 MG / Trimethoprim 160 MG Oral Tab let [Bactrim] 06/01/2019 12:00:00 AM EDT eCW1 ([facility])
[2020-03-19] MEDS ORDERED: TRAM50TA2 (09:33)
[2020-03-19 10:15] LABS: BASO % 0.6 % (0.0-1.0); EOS # 0.3 10^3/uL (0.0-0.5); HEMOGLOBIN 13.8 g/dl (13.5-17.5); LYMPH # 2.3 10^3/uL (1.5-5.0); LYMPH % 47.2 % (24.0-44.0); MEAN CORPUSCULAR HEMOGLOBIN 28.5 pg (27.0-33.0); MEAN CORPUSCULAR HGB CONC 32.9 g/dl (32.0-36.5); MEAN CORPUSCULAR VOLUME 86.6 fl (80.0-96.0); MONO # 0.3 10^3/uL (0.0-0.8); MONO % 6.6 % (0.0-5.0); NEUTROPHILS # 1.9 10^3/uL (1.5-8.5); NEUTROPHILS % 39.4 % (36.0-66.0); PLATELET COUNT, AUTOMATED 246 10^3/uL (150-450); RED BLOOD COUNT 4.85 10^6/uL (4.30-6.10); WHITE BLOOD COUNT 4.8 10^3/uL (4.0-10.0)
--- NOTE | 2020-03-19 10:15 | REP ---
INDICATION: severe pain. COMPARISON: Comparison radiographs February 22, 2020, February 16, 2020, and February 13, 2020.. TECHNIQUE: Four views of the left hand are presented. FINDINGS: Four views of the left hand demonstrate soft tissue swelling and irregularity over the dorsal and ulnar aspect of the 4th and 5th metacarpals. Are 2 or 3 tiny flecks of calcific density in these soft tissues which could be tiny flecks of foreign material. No soft tissue gas is seen. No fracture or bony erosive changes seen. IMPRESSION: Soft tissue swelling and irregularity at the original laceration site. There are 2 or 3 tiny flecks of calcific material projecting in these soft tissues overlying the 4th and 5th metacarpals.. <Electronically signed by Santana Pollock > 03/19/20 1011
--- OUTSIDE RECORDS SUMMARY | 2020-03-19 10:15 | CCD ---
Author Author [facility] Organization [facility] Address Unknown Phone Unavailable Care Team Providers Care Gill Tender Name Role Phone ALO KULWINDER Unavailable Unavailable LAROCK, Rebecca DOUGLAS CIGAR HEAD STRINGER Unavailable Unavailable LAROCK, Rebecca DOUGLAS CIGAR HEAD STRINGER Unavailable Unavailable LAROCK, Rebecca DOUGLAS CIGAR HEAD STRINGER Unavailable Unavailable LAROCK, Rebecca DOUGLAS CIGAR HEAD STRINGER Unavailable Unavailable LAROCK, Rebecca DOUGLAS CIGAR HEAD STRINGER Unavailable Unavailable LAROCK, J STELLA CIGAR HEAD STRINGER Unavailable Unavailable LAROCK, J STELLA CIGAR HEAD STRINGER Unavailable Unavailable LAROCK, Rebecca DOUGLAS CIGAR HEAD STRINGER Unavailable Unavailable LAROCK, J STELLA CIGAR HEAD STRINGER Unavailable Unavailable LAROCK, J STELLA CIGAR HEAD STRINGER Unavailable Unavailable LAROCK, J STELLA CIGAR HEAD STRINGER Unavailable Unavailable LAROCK, J STELLA CIGAR HEAD STRINGER Unavailable Unavailable LAROCK, J STELLA CIGAR HEAD STRINGER Unavailable Unavailable LAROCK, Rebecca DOUGLAS CIGAR HEAD STRINGER Unavailable Unavailable LAROCK, Rebecca DOUGLAS CIGAR HEAD STRINGER Unavailable Unavailable LAROCK, Rebecca DOUGLAS CIGAR HEAD STRINGER Unavailable Unavailable LAROCK, Rebecca DOUGLAS CIGAR HEAD STRINGER Unavailable Unavailable LAROCK, Rebecca DOUGLAS CIGAR HEAD STRINGER Unavailable Unavailable LAROCK, Rebecca DOUGLAS CIGAR HEAD STRINGER Unavailable Unavailable LAROCK, Rebecca DOUGLAS CIGAR HEAD STRINGER Unavailable Unavailable LAROCK, Rebecca DOUGLAS CIGAR HEAD STRINGER Unavailable Unavailable TREJO, R ADRIANE CIGAR HEAD STRINGER Unavailable Unavailable TREJO, R ADRIANE CIGAR HEAD STRINGER Unavailable Unavailable TREJO, R ADRIANE CIGAR HEAD STRINGER Unavailable Unavailable TREJO, R ADRIANE CIGAR HEAD STRINGER Unavailable Unavailable TREJO, R ADRIANE CIGAR HEAD STRINGER Unavailable Unavailable TREJO, R ADRIANE CIGAR HEAD STRINGER Unavailable Unavailable TREJO, R ADRIANE CIGAR HEAD STRINGER Unavailable Unavailable TREJO, R ADRIANE CIGAR HEAD STRINGER Unavailable Unavailable TREJO, R ADRIANE CIGAR HEAD STRINGER Unavailable Unavailable TREJO, R ADRIANE CIGAR HEAD STRINGER Unavailable Unavailable TREJO, R ADRIANE CIGAR HEAD STRINGER Unavailable Unavailable TREJO, R ADRIANE CIGAR HEAD STRINGER Unavailable Unavailable TREJO, R ADRIANE CIGAR HEAD STRINGER Unavailable Unavailable TREJO, R ADRIANE CIGAR HEAD STRINGER Unavailable Unavailable TREJO, R ADRIANE CIGAR HEAD STRINGER Unavailable Unavailable TREJO, R ADRIANE CIGAR HEAD STRINGER Unavailable Unavailable TREJO, R ADRIANE CIGAR HEAD STRINGER Unavailable Unavailable TREJO, R ADRIANE CIGAR HEAD STRINGER Unavailable Unavailable TREJO, R ADRIANE CIGAR HEAD STRINGER Unavailable Unavailable TREJO, R ADRIANE CIGAR HEAD STRINGER Unavailable Unavailable TREJO, R ADRIANE CIGAR HEAD STRINGER Unavailable Unavailable TREJO, R ADRIANE CIGAR HEAD STRINGER Unavailable Unavailable TREJO, R ADRIANE CIGAR HEAD STRINGER Unavailable Unavailable TREJO, R ADRIANE CIGAR HEAD STRINGER Unavailable Unavailable TREJO, R ADRIANE CIGAR HEAD STRINGER Unavailable Unavailable TREJO, R ADRIANE CIGAR HEAD STRINGER Unavailable Unavailable TREJO, R ADRIANE CIGAR HEAD STRINGER Unavailable Unavailable TREJO, R ADRIANE CIGAR HEAD STRINGER Unavailable Unavailable TREJO, R ADRIANE CIGAR HEAD STRINGER Unavailable Unavailable TREJO, R ADRIANE CIGAR HEAD STRINGER Unavailable Unavailable TREJO, R ADRIANE CIGAR HEAD STRINGER Unavailable Unavailable TREJO, R ADRIANE CIGAR HEAD STRINGER Unavailable Unavailable TREJO, R ADRIANE CIGAR HEAD STRINGER Unavailable Unavailable TREJO, R ADRIANE CIGAR HEAD STRINGER Unavailable Unavailable TREJO, R ADRIANE CIGAR HEAD STRINGER Unavailable Unavailable TREJO, R ADRIANE CIGAR HEAD STRINGER Unavailable Unavailable TREJO, R ADRIANE CIGAR HEAD STRINGER Unavailable Unavailable TREJO, R ADRIANE CIGAR HEAD STRINGER Unavailable Unavailable TREJO, R ADRIANE CIGAR HEAD STRINGER Unavailable Unavailable TREJO, R ADRIANE CIGAR HEAD STRINGER Unavailable Unavailable TREJO, R ADRIANE CIGAR HEAD STRINGER Unavailable Unavailable Cierra Pagan Unavailable Cheyenne Yang Unavailable [phone] SYSTEM, NOT IN PROVIDER Unavailable Unavailable SYSTEM [...] MD Unavailable Unavailable NITACora MD Unavailable Unavailable NITA, Cora BULLARD MD Unavailable Unavailable NITACora MD Unavailable Unavailable NITACora MD Unavailable Unavailable NITACora MD Unavailable Unavailable NITA, Cora BULLARD MD Unavailable Unavailable NITA, Cora BULLARD MD Unavailable Unavailable NITACora MD Unavailable Unavailable NITACora MD Unavailable Unavailable NITACora MD Unavailable Unavailable NITACora MD Unavailable Unavailable NITA S JUAN MIGUEL FERNANDEZ Unavailable Unavailable NITA, Cora BULLARD MD Unavailable Unavailable NITA S JUAN MIGUEL FERNANDEZ Unavailable Unavailable NITA S JUAN MIGUEL FERNANDEZ Unavailable Unavailable NITA S JUAN MIGUEL FERNANDEZ Unavailable Unavailable NITA S JUAN MIGUEL FERNANDEZ Unavailable Unavailable Shen Osullivan CIGAR HEAD STRINGER Unavailable Unavailable Rebecca TREVIZO MD Unavailable Unavailable [...] Unavailable Rebecca TREVIZO MD Unavailable Unavailable Rebecca TREVZIO MD Unavailable Unavailable Re-disclosure Warning The records [...] protected by Article 27-F of the [facility] Public Health law. If you continue you may have access to information: Regarding HIV / AIDS; Provided by facilities licensed or operated by the [facility] Office of Mental Health; or Provided by the [facility] Office for People With Developmental Disabilities. If such information is present, then the following [facility] mandated warning applies: This information has [...] law may result in a fine or residential sentence or both. A general authorization for the release of medical or other information is NOT sufficient authorization for further disc losure. Allergies and Adverse Reactions Type Description Substance Reaction Status Data Source(s ) Drug Class NO KNOWN ALLERGIES NO KNOWN ALLERGIES [facility] enviromental enviromental enviromental sneezing , itchy watety eyes Active eCW1 ([facility]) lactose lactose lactose stomach aches Active eCW1 ([facility] access hospital) Allergy to substance Allergy to substance Allergy to substance [place] ([facility]) Family History Family Member Name Family Member Gender Family Member Status Date o f Status Description Data Source(s) Unknown Unknown Problem MEDENT ([facility] Encounters Encounter Providers Location Date Indications Data Source(s ) Extended Individual Psychotherapy - 45 min Attender: Vicki Pagan [facility] 03/14/2020 12:00:00 PM EST - 03/14/2020 12:00:00 PM EST [facility] ([facility]) Attender: Cierra Pagan 03/14/2020 12:00:00 AM EST [facility] ([facility]) Cheyenne Yang, [facility]: [address] [place] [phone], Ph. Attender: Cheyenne Yang [place] - [facility] Medical 03/10/2020 12:00:00 AM EST [place] ([facility]) Extended Individual Psychotherapy - 45 min Attender: Vicki Pagan [facility] 03/09/2020 10:30:00 AM EST - 03/09/2020 10:30:00 AM EST [facility] ([facility]) Attender: Cierra Pagan 03/09/2020 12:00:00 AM EST [facility] ([facility]) Outpatient Attender: ADRIANE TREJO NP 02/26/2020 12:00:0 0 AM [facility] [id number]"Psych[facility] 03:00:00 AM EST - 02/22/2020 03:00:00 AM EST [facility] ([facility]) Attender: Cierra Pagan 02/22/2020 12:00:00 AM EST [facility] ([facility]) Outpatient Attender: SAMIR TREVIZO MD 02/22/2020 12:00:00 A M [facility] Outpatient Referrer: PROVIDER SYSTEM IN [address] [place] [address] 02/16/2020 1 1:53:00 AM EST left hand lac with cellulitis and lymphangitis with extensor tendon injury [facility] left hand lac with cellulitis and lympha ngitis with extensor tendon injury Psychiatric Diagnostic Evaluation with Medical Service s Attender: Ed Osullivan NP [facility] 02/16/2020 02:00:00 AM EST - 02/16/2020 02:00:00 AM EST [facility] ([facility]) Attender: Ed Osullivan NP 02/16/2020 12:00:00 AM EST [facility] ([facility]) [id number]"Psychotherapy Attender: Cierra Pagan [facility] 02/08/2020 02:00:00 AM EST - 02/08/2020 02:00:00 AM EST [facility] ([facility]) Attender: Cierra Pagan 02/08/2020 12:00:00 AM EST [facility] ([facility]) Psychiatric Diagnostic Evaluation (Non-Medical) Attender: Afia Pagan [facility] 02/05/2020 09:00:00 AM EST - 02/05/2020 09:00:00 AM EST [facility] ([facility]) Attender: Cierra Pagan 02/05/2020 12:00:00 AM EST [facility] ([facility]) Psychiatric Diagnostic Evaluation (Non-Medical) Attender: Afia Pagan [facility] 02/01/2020 01:00:00 AM EST - 02/01/2020 01:00:00 AM EST [facility] ([facility]) Attender: Cierra Pagan 02/01/2020 12:00:00 AM EST [facility] ([facility]) Psychiatric Diagnostic Evaluation (Non-Medical) Attender: Afia Pagan [facility] 01/25/2020 01:00:00 AM EST - 01/25/2020 01:00:00 AM EST [facility] ([facility]) Attender: Cierra Pagan 01/25/2020 12:00:00 AM EST [facility] ([facility]) Outpatient Referrer: PROVIDER SYSTEM [id number] 01/15/2020 08:3 0:00 AM EST unspecified psychosis [facility] unspecified psychosis Inpatient Attender: ELIZABETH WRIGHT MDAttjohanna nder: JUAN MIGUEL MOYA MDAdmitter: JUAN MIGUEL MOYA MDReferrer: JUAN MIGUEL MOYA MD [id number] 11/26/2019 12:00:00 AM EDT - 12/02/2019 10:14:[address] [facility] psychosis Patient discharged. Outpatient Attender: KULWINDER [facility] 07/28/2019 07:58:12 PM EDT [facility] [address] [facility] [address] 06/01/2019 12:00:00 AM EDT eCW1 ([facility]) Outpatient Referrer: STELLA GREEN NP 05/27/2019 06:25:00 AM EDT [facility] [place] [address] [facility] [facility] [address] 05/04/2019 12:00:00 AM EDT eCW1 ([facility]) Medications Medication Brand Name Start Date Product [...] needed for Smoking cessation (Craving; MDD 12) [facility] benztropine mesylate 0.5 MG Oral Tablet Benztropine Mesylate 0.5 MG Oral Tablet (COGENTIN) Benztropine Mesylate 0.5 MG Oral Tablet (COGENTIN) 12:00:00 AM EDT 0.5 mg Oral active Take 1 t ablet by mouth daily [facility] Melatonin 5 MG Oral Tablet Melatonin 5 MG Oral Tablet 2019 12:00:00 AM EDT 5 mg Oral active Take 1 tablet by mouth nightly [facility] Cholecalciferol 1000 UNT Oral Tablet Vit forbes D3 25 MCG (1000 UT) Oral Tablet (CHOLECALCIFEROL) Vitamin D3 25 MCG (1000 UT) Oral Tablet (CHOLECALCIFER OL) 12/02/2019 12:00:00 AM EDT 1000 U Oral active Take 1 tablet by mouth daily [facility] olanzapine 5 MG Disintegrating Oral Tabl et OLANZapine 5 MG Oral Tablet Disintegrating (ZYPREXA) OLANZapine 5 MG Oral Tablet Disintegrating (ZYPREXA) 12/02/2019 12:00:00 AM EDT 5 mg Oral active Take 1 tablet by mouth nightly [facility] Cholecalciferol 1000 UNT Oral Tablet vit forbes D3 (CHOLECALCIFEROL) tablet 1,000 Units vitamin D3 (CHOLECALCIFEROL) tablet 1,000 Units 2019 12:15:00 PM EDT 1000 U Oral active 1,000 Un its, Oral, Daily Standard, First dose on Sat12/01/19 at 1215, For 30 days
25 mcg vitamin D3 = 1,000 international units vitamin D3.
[facility] Medication administered onsite Melatonin 5 MG Oral Tablet melatonin tablet 5 mg melatonin t ablet 5 mg 11/30/2019 10:00:00 PM EDT 5 mg Oral active 5 mg, Oral, Nightly, First dose on 11/30/19 at 2200, For [address] [facility] Medication administered onsite benztropine mesylate 1 MG Oral Tablet benztropine (COG ENTIN) tablet 0.5 mg benztropine (COGENTIN) tablet 0.5 mg 11/29/2019 08:00:00 PM EDT 0.5 m g Oral active 0.5 mg, Oral, Da jenni Standard, First dose on 11/29/19 at 2000, For [address] [facility] Medication administered onsite olanzapine 5 MG Disintegrating Oral Tabl et OLANZapine zydis (ZYPREXA) disintegrating tablet 5 mg OLANZapine zydis (ZYPREXA) disintegratin g tablet 5 mg 11/26/2019 10:00:00 PM EDT 5 mg Oral active 5 mg, Oral, Nightly, First dose on Jeannie 11/26/19 at 2200, For [address] [facility] Medication administered onsite olanzapine 5 MG Disintegrating Oral Tabl et OLANZapine zydis (ZYPREXA) disintegrating tablet 5 mg OLANZapine zydis (ZYPREXA) disintegratin g tablet 5 mg 11/26/2019 02:45:37 PM EDT 5 mg Oral active 5 mg, Oral, Every 6 hours PRN, agitation, psychosis, Starting [facility] 11/26/19 at 1445, For [address] [facility] Medication administered onsite Acetaminophen 325 MG Oral Tablet acetaminophen (TYLENO L) tablet 650 mg acetaminophen (TYLENOL) tablet 650 mg 11/26/2019 02:45:21 AM EDT 65 0 mg Oral active 650 mg, Oral, E very 4 hours PRN, Mild Pain (Pain Scale Score 1- 3), Headaches, Moderate Pain (Pain Scale Score 4-6), Severe Pain (Pain Scale Score 7-10), MDD 4, Starting [facility] 11/26/19 at 0245, For 30 days
Max [id number] per 24-hour period
[facility] Medication administered onsite Ondansetron 4 MG Disintegrating Oral Tab let ondansetron (ZOFRAN-ODT) disintegrating tablet 4 mg ondansetron (ZOFRAN-ODT) disintegrating tablet 4 mg 11/26/2019 02:45:21 AM EDT 4 mg Oral active 4 mg, Oral, Every 6 hours PRN, Nausea, Starting [facility] 11/26/19 at 0245, For 30 days
Dissolve on tongue.
[facility] Medication administered onsite Hydroxyzine Hydrochloride 50 MG Oral Tablet hydrOXYzin e (ATARAX) tablet 50 mg hydrOXYzine (ATARAX) tablet 50 mg 11/26/2019 02:45:21 AM EDT 50 mg Oral active 50 mg, Oral, Every 6 hours PRN, Anxiety, Sleep, Starting [facility] 11/26/19 at 0245, For [address] [facility] Medication administered onsite Nicotine 4 MG/ACTUAT Inhalant Solution nicotine (NICOT ROL) inhaler 1 puff nicotine (NICOTROL) inhaler 1 puff 11/26/2019 02:45:21 AM EDT 1 {puff} Inhalation active 1 puff, Inhala tion, Every 1 hour PRN, Smoking cessation, Craving; MDD 12, Starting [facility] 11/26/19 at 0245, For 30 days
Max [id number] per 24-hour period
[facility] Medication administered onsite Magnesium Hydroxide 80 MG/ML Oral Suspen brian magnesium hydroxide (MILK OF MAGNESIA) 400 MG/5ML suspension 30 mL magnesium hydroxide (MILK OF MAGNESIA) 4 00 MG/5ML suspension 30 mL 11/26/2019 02:45:21 AM EDT 30 mL Oral active 30 mL, Oral, Daily PRN, Constipation, Starting [facility] 11/26/19 at 0245, For 30 days
Shake well before usingIf serum creatinine > 2 notify provider before administering
[facility] Medication administered onsite Trazodone Hydrochloride 100 MG Oral Tablet trazodone ( DESYREL) tablet 100 mg trazodone (DESYREL) tablet 100 mg 11/26/2019 02:45:21 AM EDT 100 mg Oral active 100 mg, Oral, Nightl y PRN, Sleep, Starting [facility] 11/26/19 at 0245, For [address] [facility] Medication administered onsite Aluminum Hydroxide 40 MG/ML / Magnesium Hydroxide 40 MG/ML / Simethicone 4 MG/ML Oral Suspension Alum & Mag Hydroxide-Simeth (MAALOX PLUS) 200-200-20 MG/5ML suspension 30 mL Alum & Mag Hydroxide-Simeth (MAALOX PLUS ) 200-200-20 MG/5ML suspension 30 mL 11/26/2019 02:45:21 AM EDT 30 mL Oral a ctive 30 mL, Oral, Every 4 hours PRN, Heartburn, Indigestion, MDD 4, Starting [facility] 11/26/19 at 0245, For 30 days
Max [id number] per 24-hour period
[facility] Medication administered onsite Sulfamethoxazole 800 MG / Trimethoprim 1 60 MG Oral Tablet [Bactrim] Bactrim DS 800-160 MG Bactrim DS 800-160 MG 06/01/2019 12:00:00 AM EDT active 1 tablet eCW1 ([facility]) Insurance Providers Payer name Policy type / Coverage type Policy ID Covered constitution party ID Covered constitution party's relationship to santoyo Policy Santoyo Plan Information [employer]AN MCDO [id number] SP [id number] [facility] SIMON [id number] SP [id number] [facility](MCAID) O [id number] S [id number] [facility] I [id number] Self [id number] [facility] I [id number] Self [id number] [facility] [id number] SP [id number] [place]ED[place] [id number] SP [id number] Medicaid Dental P UNAVAILABLE S UN AVAILABLE MEDICAID [id number] SP [id number] UNHC COMMUNITY PLAN MCDO [id number] SP [id number] MEDICAID M [id number] MEDICAID [id number] SP [id number] SELF PAY ONLY [id number] SP [id number] MEDICAID [id number] SP [id number] [employer] INSURANCE [id number] SP [id number] MEDICAID [id number] SP [id number] ANSI-Medicaid [id number] ANSI-Not a Secondary Insurance [id number] [employer] [id number] MD2 [id number] SELF PAY ONLY [id number] SP [id number] MEDICAID [id number] SP [id number] PENDING [employer] INSURANCE [id number] SP [id number] [employer] [id number] MD2 [id number] [place]/307 [id number] [id number] [employer] [id number] [place]/307 [id number] [facility] [id number] SP [id number] [place] P[place] 302/307 [id number] SF2 [id number] [place] 302/307 [id number] SF2 [id number] [employer] [id number] SELF PAY [id number] SM2 [id number] [id number] [place] [id number] FA [id number] [employer] PPO O [id number] P [id number] BCBS/[employer] Medigap Part B Family Dependent [place] Commercial Family Dependent BCBS [place] PPO 302/307 [id number] [id number] Problems, Conditions, and Diagnoses Code Display Name Description Problem Type Effective Dates Data Source(s) Z72.0 Tobacco use Tobacco Use Disorder, Mild Condition 0 03/14/2020 12:00:00 AM EST [facility] ([facility]) 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 stimulant dependence, uncomplicate d Stimulant Use Disorder, Moderate: Other or unspecified stimulant Condition 03/14/2020 12:00:00 AM EST [facility] ([facility]) F43.9 Reaction to severe stress, unspecified U nspecified Trauma- and Stressor- Related Disorder Condition 03/14/2020 12:00:00 AM EST [facility] ([facility]) F29 Unspecified psychosis not du e to a substance or known physiological condition Unspecified Schizophrenia Spectrum and Other Psychotic Disorder Condition 03/14/2020 12:00:00 AM EST [facility] ([facility]) F29 Unspecified psychosis not du e to a substance or known physiological condition Unspecified Schizophrenia Spectrum and Other Psychotic Disorder Condition 03/09/2020 12:00:00 AM EST [facility] ([facility]) Z72.0 Tobacco use Tobacco Use Disorder, Mild Condition 0 03/09/2020 12:00:00 AM EST [facility] ([facility]) 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 stimulant dependence, uncomplicate d Stimulant Use Disorder, Moderate: Other or unspecified stimulant Condition 03/09/2020 12:00:00 AM EST [facility] ([facility]) F43.9 Reaction to severe stress, unspecified U nspecified Trauma- and Stressor- Related Disorder Condition 03/09/2020 12:00:00 AM EST [facility] ([facility]) left hand lac with cellulitis and lympha ngitis with extensor tendon injury left hand lac with cellulitis and lymphangitis with extensor tendon injury Diagnosis 02/16/2020 11:53:00 AM [facility] unspecified psychosis unspecified psychosis Diagnosis 01/15/2020 08:30:00 AM [facility] depression depression Diagnosis 01/15/2020 08:30:00 AM ES [facility] psychosis psychosis Diagnosis 11/26/2019 02:30:00 AM ED [facility] Surgeries/Procedures Procedure Description Date Indications Data Source(s) Extended Individual Psychotherapy - 45 min 03/14/2020 12:00:00 AM EST - 03/14/2020 12:00:00 AM EST [facility] ([facility]) Extended Individual Psychotherapy - 45 min 12:00:00 AM EST [facility] ([facility]) Extended Individual Psychotherapy - 45 min 03/09/2020 12:00:00 AM EST - 03/09/2020 12:00:00 AM EST [facility] ([facility]) Extended Individual Psychotherapy - 45 min 12:00:00 AM EST [facility] ([facility]) [id number]"Psychotherapy 1 12:00:00 AM EST - 02/22/2020 12:00:00 AM EST [facility] ([facility]) [id number]"Psychotherapy 02/22/2020 12:00:00 AM EST [facility] ([facility]) Psychiatric Diagnostic Evaluation with Medical Services 02/16/2020 12:00:00 AM EST - 02/16/2020 12:00:00 AM EST [facility] ([facility]) Psychiatric Diagnostic Evaluation with Medical Services 02/16/2020 12:00:00 AM EST [facility] ([facility]) [id number]"Psychotherapy 0 12:00:00 AM EST - 02/08/2020 12:00:00 AM EST [facility] ([facility]) [id number]"Psychotherapy 02/08/2020 12:00:00 AM EST [facility] ([facility]) Psychiatric Diagnostic Evaluation (Non-Medical) 02/05/2020 12:00:00 AM EST - 02/05/2020 12:00:00 AM EST [facility] ([facility]) Psychiatric Diagnostic Evaluation (Non-Medical) 2019 12:00:00 AM EST [facility] ([facility]) Psychiatric Diagnostic Evaluation (Non-Medical) 02/01/2020 12:00:00 AM EST - 02/01/2020 12:00:00 AM EST [facility] ([facility]) Psychiatric Diagnostic Evaluation (Non-Medical) 2019 12:00:00 AM EST [facility] ([facility]) Psychiatric Diagnostic Evaluation (Non-Medical) 01/25/2020 12:00:00 AM EST - 01/25/2020 12:00:00 AM EST [facility] ([facility]) Psychiatric Diagnostic Evaluation (Non-Medical) 2019 12:00:00 AM EST [facility] ([facility]) 25 HYDROXY INCLUDES FRACTIONS IF PERFORMED VITAMIN D 25 HYDROXY , TOTAL Routine 12/01/2019 12:15 PM EDT 12/01/2019 12:15:[address] [facility] COMPREHENSIVE METABOLIC PANEL COMPREHENSIVE METABOLIC PANEL Rou nestor 12/01/2019 12:15 PM EDT 12/01/2019 12:15:00 PM EDT [facility] Results ID Date Data Source [id number] 02/27/2020 01:26:00 AM EST [facility] Name Value Range Interpretation Code Description Data Anahi rce(s) Supporting Document(s) SARS-CoV-2 (COVID 19) NEGATIVE - SARS-CoV-2 (COVID19) [facility] This lab was ordered by [facility] a nd reported by [facility]. ID Date Data Source [id number] 02/17/2020 08:34:37 AM EST [facility] Name Value Range Interpretation Code Description Data Anahi rce(s) Supporting Document(s) Progress Note [facility] [id number]U4FRmYXrYiHpXhNeJh lbm [file] [id number]+UQicaGKfrFblQNZNZiavEmMRXbCuNH4FIQl= ID Date Data Source [id number] 02/16/2020 05:12:55 PM EST [facility] Name Value Range Interpretation Code Description Data Anahi rce(s) Supporting Document(s) Progress Note [facility] [id number]/BAIljFRCdw4MnTIrsZSa0HXsyKOKhS8LmXOB0kP4hBYE6OLjIEiWlCtKqLlH1 lbm [file] AgICAgICAgICAgICAgICAgICAgICAgICAgICAgICAgICAgICAgICAgICAgICAgICAgICAgICAgICAgIC YeADNcVQBcXKMkKOVxSE4EKBRqQEWzSREiIQHbSBSf ICAgICAgICAgICAgICAgICAgICAgICAgICAgICAgICAgICAgICAgICAgICAgICAgICAgICAgICAgICAg YFKuEGJeGKYgZNXbWBMgGVIlJJWrJYOpNR4RLZYwTZOjVXLqKMVjWKAiPCCnGSEtMRRqRUCzGRBkRAMt ICAgICAgICAgICAgICAgICAgICAgICAgICAgICAgIC YdJFQzATVuQNPrUHAaEZWgWJMnINNoHXGaRIOtGDVdQDIgEW0NZMPiGIEvHGNiMWPcLONhSZVwROPlMT AgICAgICAgICAgICAgICAgICAgICAgICAgICAgICAgICAgICAgICAgICAgICAgICAgICAgICAgICAgIC HlPUJwIVBjFBYpHLApNKSqUP7TJKYrPMLkWMIxEETd ICAgICAgICAgICAgICAgICAgICAgICAgICAgICAgICAgICAgICAgICAgICAgICAgICAgICAgICAgICAg GRIlLDSfCSMsUQEgHHCxSMGzVSOgLZDpCBQfSV0XYDGqOEYdJUFbQDHoNRVxZEHxEERlPPGzUEKzNUPb ICAgICAgICAgICAgICAgICAgICAgICAgICAgICAgIC IvGORdNUDpPLCpUEFoQJStERDsJEBiZBMtDOIkMPNoGNNmKUJoZI2HBEUgMTQsBOOqVBSrTKRmHZHrRO AgICAgICAgICAgICAgICAgICAgICAgICAgICAgICAgICAgICAgICAgICAgICAgICAgICAgICAgICAgIC KdYZDaFIHsQLYqXXBxKOMeCYTpXJ3HPUZnMEUcBABl ICAgICAgICAgICAgICAgICAgICAgICAgICAgICAgICAgICAgICAgICAgICAgICAgICAgICAgICAgICAg XEEfKBZvBLVuOFAhZXWjBSCwXSKpQHJcGEIoSVZzHG3EUVGlQMRnCUVfYZKuWZXzKMNvZAXlIQGwQUYq ICAgICAgICAgICAgICAgICAgICAgICAgICAgICAgIC LxMGHeBDZlEFCtRVDjMYFyHOWcNVTiXFDzJTAhAMObCGKhOIYcUSZlBQ5BJHKoRLHoPLUlBLEzDMEnAF AgICAgICAgICAgICAgICAgICAgICAgICAgICAgICAgICAgICAgICAgICAgICAgICAgICAgICAgICAgIC CrZINhDUBfOEYcBDRxOVFrCTGhKAGiQN1NWF68zZSs g7M1JMCmTS6svmu/Zn5NWInnlvZbvYDoLH1VHwCrYT7irp8JAyAdJD7ulw6EZGyAUdMtC7Z7nYGkTMRc QRCFImOiX36bQXawVa40OLbtVEAlYfEvXNd0Dp5LGhUlW2bbGJFfFiM9BUAgGxHwHFodHF6Pb0NqpSUc DQo+Le0ZBY9qj7PsOAbgFBKkTU1vqg1BTOvXBsAkK6 YmzzX3FFL5HBXiAx5DYQKkHHKfjTVpCPMmKBGWZrBhF7GwhG01KUELGq9+YAubfdKbVxsULuI0RLLip9 IlWYm9GK1EHDIsHQa9eLEvMSGwQ9Kzy7ApMl97GWXcXhidYcEaOWQRRTWxafHkC4RhAZJWHcTwiBGdGu 8tCE4vIWHmDNV7IyGkLCNTTR6AMXYgBIEdgRFoCUWu BFKREI5NUWxlWDD0WWRjhtGreUUdMBtmXE7BXOXxwwDhAKCsHQZLUKn+Zt4YPA0le9YaMSwtCcUkPC8h vt3TZQoILlWnC3Z9uCKuW1K6FCfhCs3ZFRLoZCLvLVZaBVZSXZzpJU8MBL8pczF4HU8IqDVaXGXhJVWv lHIdIYs5G64niNSyMSixRS7PRPP+Daniel+Je2EEZXgPU HhJDBcRwBaETMLAkMtW8VuA4IVy1WjH2QhWA18bHuzklGtBSdvSG0LCA8mBOYmMSOJGD4MbFQodD7qrm IfSDCiIWBBZuUtM20xsRAbOBKxXNMbBZJlSp4GXYIcW0MjkdNpeCybgmMnJZHtSNIURT2VCAvevbNuzN GldXvkRH62cJcrTY4VKl1GNoXaLY1aef9KoZCtPh2Y YBMoVg5AHJQwWPQpLVFzFSC8OQXpWaPjJFktVJViNXEwIND4EPWsPVTcGA8WFpEaFIRrKDH5IcfkUAWo MMLffo8NPSBgBBMkHaP9ZPCrIKFsGMMjTLubCTAnOYSlXKO9MVDpLPOgTC7CNvRsXNVpWNI7UrnnIAYg DXIemb2OSFUlQTDpOFc8GjMxTEHqHCAcBCccZUKpNC IjUTVtXUMqANHdIT5YIhTtGXTeRPYeJlpaCJPwJXFfwt3FYYKkJTMmFzFtDRDcEFPbLCLaRMwpYQBhMO P3UlQ3WTVaHNMpWE4DMmNsIXClGGH2HektTRNpLBFkyy4PLVXcCWSsLVV6LCQiVFEhFOAwJOpaKBGaUF V5BGD8WQBvFLWrWG0ECbDpSFXkOXC8VNfyOYGeVUGj de4NPWYtCDFxRyY8EBCyHWQdSTJzIVrcLRGhMXO5JzP1SPXaGCFsXV7LAbWdVQgrXYQQJdx6BFiqJ3t6 VRDvQu5HA2Ebo0KfXFGdEAYARTtuDG9boiYfJIDxJo9XU7mJEhwhUtL1OxUwWrNdJNy1DAX8WtNjVwGl LCNtHiKrTZPeQW0rLCMxBPbnMBRgEHG4WCXcMiUhKi AzDwU6PJRhQwO8CvC6AjYkRR6DQu1KYtZ1EAN8mCMiKz3JPur2Sa9NDPLBV5NBOk== ID Date Data Source [id number] 02/16/2020 08:15:00 AM EST [facility] Name Value Range Interpretation Code Description Data Anahi rce(s) Supporting Document(s) SARS coronavirus 2 RNA [Presence] in Res piratory specimen by TAISHA with probe detection [facility] This lab was ordered by [facility] a nd reported by [facility]. ID Date Data Source [id number] 02/09/2020 02:50:00 PM EST [facility] ([facility]) Name Value Range Interpretation Code Description Data Anahi rce(s) Supporting Document(s) ID Date Data Source [id number] 02/09/2020 02:50:00 PM EST [facility] Name Value Range Interpretation Code Description Data Anahi rce(s) Supporting Document(s) SARS coronavirus 2 RNA [facility] This lab was ordered by [facility] and reported by [facility]. ID Date Data Source [id number] 01/15/2020 08:46:00 AM EST [facility] Name Value Range Interpretation Code Description Data Anahi rce(s) Supporting Document(s) Progress Note [facility] KKTSVo1eMeZMMcSq10/KTDwqZBItx6HnMLtdQQw1FNsnRJZsC3TnVZM8lI0kGQR8NXwOHxRaTaWsWRL9 [facility] [file] b8GRi9FTcqKSMXAn4Y ID Date Data Source [id number] 12/02/2019 04:44:07 PM EDT [facility] Name Value Range Interpretation Code Description Data Anahi rce(s) Supporting Document(s) Discharge Summary [facility] EIHZTs9tKbADCjMz79/KYTndTYTkv1WpCYunCEl5QBkjYKQxO1JnEIV8iI2hRPW6YPeJZnKbWwTmJPM2 lbm [file] 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+ZIRasUYyPVWwFyfRjnHm6aQ1bnOBpvB66OX0sK0KzcUXI7+vU7dy0OkAA+82lq9y5tNwR6bIQRtO [file] AgICAgICAgICAgICAgICAgICAgICAgICAgICAgICAgICAgICAgICAgICAgICAgICAgICAgICAgICAgIC AgICAgICAgICANCiAgICAgICAgICAgICAgICAgICAg ICAgICAgICAgICAgICAgICAgICAgICAgICAgICAgICAgICAgICAgICAgICAgICAgICAgICAgICAgICAg ICAgICAgICAgICAgICAgICAgICANCiAgICAgICAgICAgICAgICAgICAgICAgICAgICAgICAgICAgICAg ICAgICAgICAgICAgICAgICAgICAgICAgICAgICAgIC AgICAgICAgICAgICAgICAgICAgICAgICAgICAgICANCiAgICAgICAgICAgICAgICAgICAgICAgICAgIC AgICAgICAgICAgICAgICAgICAgICAgICAgICAgICAgICAgICAgICAgICAgICAgICAgICAgICAgICAgIC AgICAgICAgICAgICANCiAgICAgICAgICAgICAgICAg ICAgICAgICAgICAgICAgICAgICAgICAgICAgICAgICAgICAgICAgICAgICAgICAgICAgICAgICAgICAg ICAgICAgICAgICAgICAgICAgICAgICANCiAgICAgICAgICAgICAgICAgICAgICAgICAgICAgICAgICAg ICAgICAgICAgICAgICAgICAgICAgICAgICAgICAgIC AgICAgICAgICAgICAgICAgICAgICAgICAgICAgICAgICANCiAgICAgICAgICAgICAgICAgICAgICAgIC AgICAgICAgICAgICAgICAgICAgICAgICAgICAgICAgICAgICAgICAgICAgICAgICAgICAgICAgICAgIC AgICAgICAgICAgICAgICANCiAgICAgICAgICAgICAg ICAgICAgICAgICAgICAgICAgICAgICAgICAgICAgICAgICAgICAgICAgICAgICAgICAgICAgICAgICAg ICAgICAgICAgICAgICAgICAgICAgICAgICANCiAgICAgICAgICAgICAgICAgICAgICAgICAgICAgICAg ICAgICAgICAgICAgICAgICAgICAgICAgICAgICAgIC AgICAgICAgICAgICAgICAgICAgICAgICAgICAgICAgICAgICANCiAgICAgICAgICAgICAgICAgICAgIC AgICAgICAgICAgICAgICAgICAgICAgICAgICAgICAgICAgICAgICAgICAgICAgICAgICAgICAgICAgIC AgICAgICAgICAgICAgICAgICANCjw/iOQhB5tvuCGe umJ2C0ltJw5OIj5AGO8rw9JqQJGeIPyufaTbWyxMDiErOAVlAryEWmp6BDawRR0CnZHiD6MqY1FqVJvr CC7EDAXsQJQltERrJWTuBBHtKdN0WQGiMBjfZP4FqSKdDRqxDNOzPEXiWgWdXZArRCMzYTOdEPPoGFUR VIPbNTJcCdGsMTUcEOVxCBpcREJMLXO0BLHyKsTwAD LkCPAiOyVsEWSJYB5ZOqYwQ8OtcE27AGLeYVr+Ak9ENV7yi7LcNUi3IXIoCZ9vwc6DTXsFVeWxS8Paro A1GMP4OJRoUx8EHVPvXEIygSU0ZITeFKILRkCvN8GumR01XILTJp0+OGghynYlEakOByD9TVWwx0HgLZ n6WJ6ILXTqKXs0nSMuBNcuS7doknssDIV0mY9uzyqi GofuYXSuuRjvDOqdWZ4iNQ0MHWA3SQMzMdK2PgCmBtIkBIo9HyYgZV8wULxyUX8YOAY5RVjaLUVgNXOb B3xUZqDnJSUeOvTjhEreVZ1NXxPdH8HgluUlmJP3TMHtBDIRNt9+ROmltxWwUxzLAoV5OBFfk7ObHXq9 GA0HYLQfPDtnIH8QALCxdY3aPQfwRC3ODcM3RoQkQP XLScVrE71quTFdUOd6H1BgXlFuJEZmLlbsWTUvXXhvQoKfIKHeMqDuBUhzMR3+ID4+DSenFM2KLBslzs ZuVRTsWe0VIFPaDFLlMZ0lOAKbFYLyO1V6wQnkTJLUYgKgU3laqqboUR4kPOTmW134iQriuuRaRXT0QV QxSv2EZJAqBEB7ZRDejJPyFPJoMRXJRFnyDS8FbVTg HAO2xK6jGHmcTJGeGATzE7yOJlWufKfvZD71zLviscGpiRLqFFk+Bz9RCX4mw9WrPAn6oeXoFTyzJPH6 DKecORFiNQVdXIZpYVO6VTN9NPJVIkIvHEQoKVAvMSbqKJRuDXDliy4VNPAxTXO0XiL3MFIcOGIjRGLw NVvgNJRjWRE7XnI9EAHkVLHcLD3KUsLfANCgDDLhDY bpSCQeYRWypn1CKIXkKTUnYOxaACClDVQxQMBnIIqiFJZmHUY6QUT2RNArMNJpEC0ZRzKeIZZbZApqBw XkZERcYXOfmi3THTQdORXpUNW9WKEjSGKkAXRbECloYYUvJVEoCnKfEEHdYQPuAV5EJrUkYTCuNMO8VO MbMSRoCKEwuh8KBASpXGGcGZs6WaSrXMVoCXXkIOwu RJLvITH1FIFqNWAsNYWxTY6ASlRaHLCoKAf1TPAnJAJfIWFubq5AMBEfCVOxWQK8IlMeHNVzFDKzZUwa CRDrGIJqATXsSNVtEABmME2TWzInPGQjUoUyDCKdUWKrNLJydn5CPIXjDFKxFvo1BBSxZHMtHUYnIYdr RRUtVJY2BLx2NTBzKPXiGE4UQwIgPXYwQwM6OTfeZJ RpVIOojw5WTHTzYLQoJEi5LACiTWLlDXOlDXclMIUqFWX3CGM0VOEhAERmOG3UPnIyQTUsEpSgIhZgDT RkFOGacy5OEDOtBJHkWzqxDNObEIExKLQzQQhjYCEjDXV2GCUkPIYaPGWwUZ7WAsDuBAPuMgyhVXMpSS HsAKIafz5NQVGiAXKnWDN4ZMNeYZYnDFFbYBncUEPy ZLD2FWelJGXoMGTqRC1EPiWmSGQiAkf8CsNqXXRlWECmhy7NWEBzRCSqNSWcSmNxOOZzFNTyVXjrNLTe IHF4LCLoYRGcYJStIF6JGuFsOJAxLWUhATOaQEAkLIRrjs2VUMBnEIP9OKNfIvUrGKMaJUGtEDtpNCOu QHClGyFkKAKtNTAvQD0RJaFcMMXkMPJ4NhVwILOoMF Kofj6GBULxEWW4DpEmPbEvZWLuNPAzMKjmSSTpGCCyDVLqMYBiNYYrZO4NLnFcWYLpWOGfNFptNKTzXN Icze1IIXJdVYM8BeDmNyZzFLExFZYzPSojPFQwING7UgqgLTPsUVVbLK9NGxIxKJSvOYA7ErKdNTNnSG Shuy1ENIVvNVG6HWx4AjLhPNZhDLRuOKemYNMoBAP4 EuWoPVZrAJJrKN8JCkAwUUZmJBw8EuIhVXYzOODtkn4NOTNnYRX7GAE5LFGoNMGbRROdYRlpSZOkMACx Xeb3WASqIZEaZX9YNoYkMQAsHeG3JokiQPQdZRYrtn6JIIYxTDX5LZd5HUIlGBWaHPIbMEujEBDsEJCn YItoOWCtNYGyTE6HCvPfLXPyCvRvTeasSIShMRPdpj 4PLLFzRYP2WgA4XQOqYUCbLZAtMGwrVGCrBAJcJrQ7VIYoTLXcOZ2FGzCxWWElUcX6ZHWcQVNhHMLyxu 5DWIWiVOJ5JxnvEwRkDSUrEKQrVUceKVRrMDT7XAT9RBPiSIDtSR1SDoIpNHBrVyB1JWfgZXZnSDFqqo 2LWFZnFYQ8RRH5EAOdBGHxKBDaZEh1xlVynLIkHQc8 PQ6ZV4UnknQwTGfFSy8Ci289TKF0PPTzVs9FY9lzYb3bTYPzJRQXBb2TURv6IIalPkjcTFG4VqBtULS5 JMCePVemJRC5RkJ1QkKuNVT+WTzqK7GeXjQoWOgbZGSqKHkkOiE5R7VlVHomYEFiUxC2TB9aCOZBSs5+ UGjtvTXwiLfcSRXLGqA4AGzcNTsyVMWFAq1S ID Date Data Source [id number] 12/01/2019 03:38:28 PM EDT [facility] Name Value Range Interpretation Code Description Data Anahi rce(s) Supporting Document(s) Calcidiol [Mass/volume] in Serum or Plasma 29 ng/mL >[address] [facility] ID Date Data Source [id number] 12/01/2019 01:12:54 PM [facility] Name Value Range Interpretation Code Description Data Anahi rce(s) Supporting Document(s) Albumin [Mass/volume] in Serum or Plasma by Bromocresol green (BCG) dye binding method 4.0 g/[facility] Bil[facility].total [Mass/volume] in Serum or Plasma 0.3 mg/dL <1.2 [facility] Calcium [Mass/volume] in Serum or Plasma 9.2 mg/dL 8.6-10.0 [facility] Chloride [Moles/volume] in Serum or Plasma 103 mmol/L 98-107 [facility] Creatinine [Mass/volume] in Serum or Plasma 0.82 mg/dL 0.70-1.20 [facility] Glucose [Mass/volume] in Serum or Plasma 97 mg/dL 70-140 [facility] Alkaline phosphatase [Enzymatic activity/volume] in Serum or Plasma 81 U/L 40-129 [facility] Potassium [Moles/volume] in Serum or Plasma 4.1 mmol/L 3.4-5.1 [facility] Protein [Mass/volume] in Serum or Plasma 6.9 g/dL 6.4-8.3 [facility] Sodium [Moles/volume] in Serum or Plasma 139 mmol/L 136-145 [facility] Aspartate aminotransferase [Enzymatic activity/volume] in Serum or Plasma 37 U/L <40 [facility] Urea nitrogen [Mass/volume] in Serum or Plasma 9 mg/dL 6-20 [facility] Osmolality of Serum or Plasma by calculation 287 mosm/kg 275-300 [facility] Creatinine/Urea nitrogen [Mass Ratio] in Serum or Plasma 11 [facility] Bicarbonate [Moles/volume] in Serum 25 mmol/L 22-29 [facility] Alanine aminotransferase [Enzymatic activity/volume] in Seru m or Plasma 55 U/L <[address] [facility] Anion gap 3 in Serum or Plasma 11 mmol/L 8-15 [facility] Glomerular filtration rate/1.73 sq M pre dicted among non-blacks [Volume Rate/Area] in Serum or Plasma by Creatinine-based formula (MDRD) >[address] [facility] Glomerular filtration rate/1.73 sq M pre dicted among blacks [Volume Rate/Area] in Serum or Plasma by Creatinine-based formula (MDRD) >60 [facility] ID Date Data Source [id number] 11/27/2019 02:51:57 PM EDT [facility] Name Value Range Interpretation Code Description Data Anahi rce(s) Supporting Document(s) History and Physical [facility] ZFTMSh5rUhSQNuKx63/LENbjCVEnp8WzERkjJNp5YExpPJUjT8YrIOR1tS2zQJY8QRuJXqZkXnFmVXA9 lbm [file] +WLqnmFcQrpqmygQef5LhqiIk8AornRBfYj/OM/+CIGAR HEAD STRINGER [file] ICAgICAgICAgICAgICAgICAgICAgICAgICAgICAgIC AgICAgICAgICAgICAgICAgICAgICAgICAgICAgICAgICAgICAgICAgICAgICAgICAgICAgICAgICAgIC NvQKAkQE7VYJUlSSJrTJYfIAQpIPKyEBScKANlETKhYRWaEHThMBHvMRWtLSSzONTnCIDsSOKaZRYtFT AgICAgICAgICAgICAgICAgICAgICAgICAgICAgICAg IQTzPUWrUSNbPFUcNSZiNL3YYRGcEQRgIJXbZRMcPOPpZCMlYIYwSLVnWZJdDGIyKNYcZKGsHVRbTZEy WRDpXNOmNXVjRPIdNNLfVVIeMBEjOIJoQCOrKZZxWZKxSOJaMXJrHSAkMQDxXQNkMSWtINLfZUXkLR0F ICAgICAgICAgICAgICAgICAgICAgICAgICAgICAgIC AgICAgICAgICAgICAgICAgICAgICAgICAgICAgICAgICAgICAgICAgICAgICAgICAgICAgICAgICAgIC ReYROrKUKcWR6OIYOoUQFwCNIfLAFfASFlUGKyBXInXPKzJDSaBPArDOHmUFElQPBtDPPlMSBrTZUaBC AgICAgICAgICAgICAgICAgICAgICAgICAgICAgICAg BNDdMCWoQMMwANAuFDBjNXZyIK5KNZKlPBYgPQFwVIPtEEVqTWErFDChZNVqPUGuZYInTQEnHFLiNSBo ICAgICAgICAgICAgICAgICAgICAgICAgICAgICAgICAgICAgICAgICAgICAgICAgICAgICAgICAgICAg DF5MUHAnYCGiRWLzJKBcGFZnZCRpYWWhIFAdGGIxVL AgICAgICAgICAgICAgICAgICAgICAgICAgICAgICAgICAgICAgICAgICAgICAgICAgICAgICAgICAgIC NdPDXbQGIdMYKuEN1IEKWoMHZqCOKsBDEqRKTmASQnJYFlVTYlGBVtZOHoHFPsCJUqAIMpYBGzCJUlKO AgICAgICAgICAgICAgICAgICAgICAgICAgICAgICAg FSRuQUVmEVGcVMKeVXKbTQOmVXNuTB6FHAGpHEJuGVGqVCItIMOeBNSaXRLiMIIeFVEpNKLcKKPzOJTc ICAgICAgICAgICAgICAgICAgICAgICAgICAgICAgICAgICAgICAgICAgICAgICAgICAgICAgICAgICAg RLDvIG7RZR65mPQdk1W4STAjNH5yoxc/Nb3HOQrybh SumNJcNL4IVuDnMG9mgo9XHyZsVS5tzz6GQAdHTyNmV4B8xZSeFKDnJQELWpPgU53uOWmeLv13LTobDD VmZzVcYAg0Hb0YNgNmJ2oqUMTrThH2PNArKjE6CFBgAoD0JDCnVmWmDHErNHWmVECdMXISXQF3EWHbKx MoHsMkWJDcCVzpDSMQHIRtLTWoPkVkUWnaYT8Yw0Ev eRU8BGp+Tm4QLQ5wt0QcTPl7EiGwDW9two3SHAdAKnXlI1ZljuD7EOKfBDWsBm9CIPBmSQIouGW4AqNw UWYVDnHyE2AdbZ83ARUYMt5+LPlhseWgQznJTmLpSKRub4SwVQx6EF8VLBWgOYm8mQWpWPOYYIM2QS69 z0ngaKIOaLQtYSTQRYZtyRUoSS57WsMuImJpASS6Vy NmUQ6xBCiiRS5TPLO2RVfnZQHvPBBxX9xIYnIgLHPuItMjuAudUB7QJnWaK1VntiBsaAE9UxFrQMJECg 4+ZQnqgvSnIblEUvM6DJUlt6UsHOk3DZ3JXPUzASojEY1EHOEsvT4dTAjhDT0IHrW6LANeKGDNNkGpQ4 3hnVRfYIv3B9EaMdCeKRKjYnseIZFmSZkjQiYeTRMd WyBdDQogID4+ID4+LQduZW6IIXzcqfPpYBCyWw8WKYDxPCYpPG9pYZKkEKPaZ6G4iFoaVAAFAwJcC7zt hgcxGS2vLJQpS874vCrpryHyMEVfQJZrPg9ILLWzPLP6TPWdnKMrXIEdZOOXXAjfJM0PySCxGOJ0gF2g LNwqNEWcHDSrE5kXMyOscNbeZR44iCwfptTigYVaAO o+Zn8OYR1ea7ZoPPo9lzBvCTfzAWR0WWkfXWClDZXaTCRqNQG1NIN8AEHDEjWnZCRyETJyIHksTFJzBW Ykle1MVONaIPQ1Van1MzViVSMnDZQhEZbeMXRtFWP7IGB0IZIoBDZeIN1REpWjSQAdLCGgKWkpAFYxJY Sqre7PEAGvUZAvMQF7TJWaSYHaMSBnWUpyJERrHQW0 LMfiBPQjFULgVS5DPmZcVTMeZMmxSlVxWMTkAZXkoe6PJVWgZYMtQqOfBKJrPGHpZGPoHTqkFETdVLBb BoI6XWVvSNPiWR4GSrBhUXLkXHM6XIjoOFBhLNUyoe4ROMXfSABnUdSxOTPsZVEvWEFtSYfzBJLgOATs PYK6PRKiPMSiOF3AIsEiJLJvTPo6FOMiKNGaCWXwxv 9QBZGsPGMkZue2XDLsRQSkGTXwAIbuSCLpFPIwZIO3OZVsZDIuJU3ODiAdXFYpMdY1KUYmJWNnWBZujn 4GOSKoMLLtQORbKtHlGQMsEHDoRNpuLHCoXNL8WdIlILDoGMSuEW4THmWjFWTdJxloPMUmQBUlZUMmso 3NYLCfRHKjVOLyXsKsZETkJLAsTUtlQJRnTZYkCmF6 TQMjTLIkUX9NGvEkLQHsFkP6QzGrQQNaNPOqfo4EEIKxYYHhTnO4NUZpVMFoYQWcYSekDLTnGIFbMUa7 ENQnJOJgEI4NYmQzSQNgMoW9VjXoYPNaNWByhl1EHOYcBJWkQFhsZKVsPUFiLWCrFKgoXUBxEFC6XKOo MTWiPALyOP0CQrFqATNuCyIcMDfmAYLxWZOhmx7AEM SgYQM9SnY4PRCqBIDwIHJhTBidHFVwKXL3UUHuTVNkRTYxFM2RAvJoGFFtEPjmVzInDPUmKQQyel4FCR FoUGB5KtS9MSHxOUKuUJOnJIdfBNUeLWY8PAZ5WGOdKCCmDE1VEiPgWJVtWLamUEDyYUVqUCPxwr9QXE OcIRD7SJLnCGBtCBLzVKVgTKeqIIFqWTF7JdG2QLJk UBCnDC4MXvLwEWLxYAv8CBsvBBFhVAKdfp7TGFZtQCM8EUk8BxQmXMTzZUMmTWzjUYEfMHJrVKE4VNNm EDLgPQ9YSiTuVLHgWIS9NLFwTTPeXRAxqh4UXAPyXDZ9NLQtDsHdPJTyGSXcIWfsHBEkWFL0MQAcLYRu TBLdKM8YLnAzOZSlBGK8MyElDQBtZFQacd2LOSAlLU A3NIduRnWpBSWxNQUhCQgeYLSpUHB6ZTC2OXKmIXHdGZ1XUwRpKBQaKFEnTkauASRmMETtzw6JIRJcTQ Y5KmCqCyXjLGEdPKWnNEkwAKHpAAA1QfS2AHZuCMZeFU7BJcZpQXVrYBh7ZLWmKAOgLPFsuj8AOMHpSU N5UjizOPMjDVZjKRLiWNyfUWQiJXV9UpQ0QEKvTCUg TW3JQgGfWWAwLKd6NVhyGHAeNTIuxk4MEHRfLRH2CTl7XATpQKLeRIZrIHdnBEAoJHC5JAB6HCDcKCLn GI4IVwDpLAayYGABOql7RCuvS4w2JLX4RW1QR2Raq7LcNNYgIFKPJYeoLH1hhiClNUPlQj6ZA8tTTogh SjP5OmL1CLSmHYroKUTvCmilPRHsDFRlIBA1QtHjGo 9wDQHhFLU5SNu3HfWbTKSqQAK9UPJkN0VsPXVpSsitSLF5YhZdLB8IYb9PQzY2DHW7aICrFu2BAsHmWC jVTgSyOX7QPSt= ID Date Data Source [id number] 11/26/2019 04:32:50 PM EDT [facility] Name Value Range Interpretation Code Description Data Anahi rce(s) Supporting Document(s) History and Physical [facility] LNKGZs9xHbZSFoDj55/CCMjyVFAil9IzBRwmKHp3VRfpMBBoH4TbXVN9dL4hVQU5YZwPKvZvCpInXGR6 lbm IpQsgVQeYdQJRpKxyQBiUwANxuZvsirDSvUB2XsNP0AWJxZ96pSCUyFOWqJ8OyHJPcPhZ+Cq4LDTKuhM OeUJ8SBttJ2Jqka5o22ZhB/BtUW0sSxTfhUUhUxdDwptyCzdUZ5TFEwf+qktBsRpya2Hy040LQmf93+R bZlPtsPyQHknfHe/IzLIbh2p/nmWW6tjOj/P/iVz8Q bHTLvv+OLadJsZi2/BVNAguEox2/CLD0Hoc/OzkBuVIgNvxzpjQVLrgFpEvKyrU3jELgv/0jG/zFuA6y bGsUQfXxImycHLtsUASrjHXzP9FmRlIvdVR9Ygy8BX2skZiLkyex3EBwtpHVwFHVtGnukAUs2VdL2S4T Op8vJQHXFObXtQBfSCmyQT51kVJMYgkx3iszfsv9mt J6w+oBQOFErNeMjGvJoQLl7e8Xf4fg4upPjjLctCzW5BXAtwbzfmmsUUQ1X3sgWq9oVXu12Yp8WHKGwB wcQjClgLAuzmSA5bIqE5d+VNV6gPN0OncouTqnu3W4i8vX4ZNOFQs3DtnDyuw25Py0N2axpUxFq4tqc9 fJroE3fBxzNK5cq9Hb48nwwU5KeIAYU/eQul6KrcPo 8+KPWq7r14sieW2u3fhBP1gzYetIZtCCLVh5jT5byZH5EZVb+TA5ua6/1ktd1OkZColqzGQmAFW7oV9Y r0e7M3th9FEty0WgBgz++N7wupav4kXgVuwkNYBryv9Dh5g1fZuETXDlOgeb3Pzwg8se3jb61/g23DJ/ bpgGTKAwmx9pWJIQomZRHYCqhXMNGwPfUBZi0VrGCf [file] AgICAgICAgICAgICAgICAgICAgICAgICAgICAgICAg ICAgICAgICAgICAgICAgICAgICAgICAgICAgICANCiAgICAgICAgICAgICAgICAgICAgICAgICAgICAg ICAgICAgICAgICAgICAgICAgICAgICAgICAgICAgICAgICAgICAgICAgICAgICAgICAgICAgICAgICAg ICAgICAgICAgICANCiAgICAgICAgICAgICAgICAgIC AgICAgICAgICAgICAgICAgICAgICAgICAgICAgICAgICAgICAgICAgICAgICAgICAgICAgICAgICAgIC AgICAgICAgICAgICAgICAgICAgICANCiAgICAgICAgICAgICAgICAgICAgICAgICAgICAgICAgICAgIC AgICAgICAgICAgICAgICAgICAgICAgICAgICAgICAg ICAgICAgICAgICAgICAgICAgICAgICAgICAgICAgICANCiAgICAgICAgICAgICAgICAgICAgICAgICAg ICAgICAgICAgICAgICAgICAgICAgICAgICAgICAgICAgICAgICAgICAgICAgICAgICAgICAgICAgICAg ICAgICAgICAgICAgICANCiAgICAgICAgICAgICAgIC AgICAgICAgICAgICAgICAgICAgICAgICAgICAgICAgICAgICAgICAgICAgICAgICAgICAgICAgICAgIC AgICAgICAgICAgICAgICAgICAgICAgICANCiAgICAgICAgICAgICAgICAgICAgICAgICAgICAgICAgIC AgICAgICAgICAgICAgICAgICAgICAgICAgICAgICAg ICAgICAgICAgICAgICAgICAgICAgICAgICAgICAgICAgICANCiAgICAgICAgICAgICAgICAgICAgICAg ICAgICAgICAgICAgICAgICAgICAgICAgICAgICAgICAgICAgICAgICAgICAgICAgICAgICAgICAgICAg ICAgICAgICAgICAgICAgICANCiAgICAgICAgICAgIC AgICAgICAgICAgICAgICAgICAgICAgICAgICAgICAgICAgICAgICAgICAgICAgICAgICAgICAgICAgIC AgICAgICAgICAgICAgICAgICAgICAgICAgICANCiAgICAgICAgICAgICAgICAgICAgICAgICAgICAgIC AgICAgICAgICAgICAgICAgICAgICAgICAgICAgICAg ICAgICAgICAgICAgICAgICAgICAgICAgICAgICAgICAgICAgICANCjw/hUMbO3khjTQhjdG3B9ljEe3L Mw7MKQ0ul0WsSILlSIbsjgEhSoqDNwKpJCQwYpcMJyc4RSptYH5NpPLoX2QgK4TwIDepEU5UMVPhQACy jAXxDYVeMVIfInD9ZAObCNanSK3HtZSaJMggQVKkOK WpDpUlRKClMDClPUMzVAXyLXYEER1NAcYjB7HqzS35VJGAHi1+GAmsutEsAmcRSfXlTXYar2VgSRy9KQ 7KTMNcBmmzn9AoOpSaZRPAQLmhHV5RWAF2XIMwCGFdMx8LOOBiG764afCoTL9SSp9LPeFvHB4pye6VTu KrKURyEfrGSbw5LNpgDQ2FzZTjRHdBGmMySvvlKPXq aDAQFNEaMJHweQtoGKJhIZNeNWNnLK9jLNUcMYLtLbH7GPJHYW7ZKGLzTAClqKQpKMWhTBEBDG5DQGcj DUQ5JFJpcuDrcUTnDZzgUE7KTLKfxaVtUbRqGTOCVFt+Hj8KTM6zz9YjKSpyLwHwLL6ezz7PFHhDPeEw X7H3wSEfN7S5GUgwDg1FGDIyVIFxRnweYSAXXEeiBV 7LFQ8xpfU3OD5VcWCdRSCuKXCbxTKnGWg3A18tiIFzVJifHL4KHVH+Daniel+Ob0YKGSrOHFjLMDeVdDvSK TEAbZfP0LmB5EUw1KtR7ObDB01cBkbaoTaGFrgUZ4JYN2mSOXgCPVZLT0NjXNjcN9ariRyXGQmLHJFNr JbX32snQNkMTWdKDOlTYEtGt3CLUDoM1CcwrUvbYha lrWqJQThVFXTRS5UBGgumcTuxCAvtKuoFA20lQnrHM6DTx0WZkItKF4rce7UwKQlAo7FFMHdNT3ZUIGb OOBwEWYwKOZ5TYEcFvZdMOquMRReWCCsZQM6XSNqBATkNU7WXkEcTULpNnwkXnZtYVHoJWJred5ZJPAa LICcKLo1JdPsYGMfBODeOWpySQEiIGEqFRA6OVAnLH EgDU7KGhNaTZZiZXC2AVkuVWTsQCDkdr5LIYWwBUOkSfpiFmMaGJKrKNJdRRjmTIFxWOS3GqW6PNDuQD PeBB6ADtVsNXNvFGQ3DBIvUCDeJLJylk4CYOTfKFAiOYdaFOOjADIrXFJoZRmnFWEwRBN7IMD9ZKOaIQ FgGO6CPrWdMNBvVJTiJDJyEIEyKYWqwk5BJCHcCYZq GHP4CWPyMPOcCZUtEHbzPRYpNVNwMsS9ZZDyDDQfDG9PNoGxKXZsUBM3WNOwJAYtBRWnra1SDCQxFUBi YYF9BJRpSTRcKWRuXAdmHXNiAKVwJwA6JALaEILkND7LYyVbUEIlJQZ8OFxiYADoHUKjhx4TBVKnVOFy FzZ0EuYtVFSdTHWbPHstNPNzDRS2BQW1TNUtFUGxDR 5ASpNsVZLrTVFfDBOmDGYzTEEqpg4VUFRkLERyCXB6GfCiFOMpWIEgLGwsKXCyDCV9FwebPZAtOQKkMY 8ANfAuICNmVxEuBFSvMBCcZBTobe2SGOUhTOIaSzK3NKJfIOAwJLTxUMolHKCuDXL4UNY4BTTdHRXkZN 0IZsSxSSSxQdO8AHNkFDFbKRXnvc7AJQLcFDZbTqBt ThDfZPEdIACxHJwbBAUcLMX4RMFhWLVhDGGnGV4XKzQtQNPkUtklDDPzSZRtELCqyn1BVPZhBAOiPYTd XuCiRGXoEFJyRDnnYWCiHQP4UDnzJLItUXCtLY2MPlUsQPJfOzj8ZmHtDDSxLPEwaj3MTIGpGZLwHTRp UJBwNMQqRNGmNFh1zeHsiVHwNOa3ZI0YQ8CxfrReYv ZQBz1Wf584XYPqUDIiYg6DM7muHx4jGDSaYMNVEb0WJBf2UUkpYlPdOxK6RIX5VLExPFShPKJ3FAWvSO T2CEG2XEA+GEreBgV6G4J1IaCmAOJ9BfLrMTIhTeK4KzEeHSAuEKYuTo9eOGADUn7+DQpzdGFydHhyZW MFMoEcEuK8UWzhJINNJa2J Procedure Social History Code Duration Value Status Description Data Source(s ) Smoking 03/14/2020 12:00:00 AM EST Unknown if ever smoked comp leted Unknown if ever smoked [facility] ([facility]) Smoking 03/09/2020 12:00:00 AM EST Unknown if ever smoked comp leted Unknown if ever smoked [facility] ([facility]) Smoking 02/22/2020 12:00:00 AM EST Unknown if ever smoked comp leted Unknown if ever smoked [facility] ([facility]) Smoking 02/16/2020 12:00:00 AM EST Unknown if ever smoked comp leted Unknown if ever smoked [facility] ([facility]) Smoking 02/08/2020 12:00:00 AM EST Unknown if ever smoked comp leted Unknown if ever smoked [facility] ([facility]) Smoking 02/05/2020 12:00:00 AM EST Unknown if ever smoked comp leted Unknown if ever smoked [facility] ([facility]) Smoking 02/01/2020 12:00:00 AM EST Unknown if ever smoked comp leted Unknown if ever smoked [facility] ([facility]) Smoking 01/25/2020 12:00:00 AM EST Unknown if ever smoked comp leted Unknown if ever smoked [facility] ([facility]) Alcohol intake 11/26/2019 12:00:00 AM EDT Ex-drinker (finding) comp leted Ex- drinker (finding) [facility] Smoking 11/26/2019 12:00:00 AM EDT Current every day smoker co mpleted Current every day smoker [facility] Vital Signs ID Date Data Source UNK Name Value Range Interpretation Code Description Data Source(s) Diastolic blood pressure 84 mm[Hg] 84 mm[Hg] eCW1 ([facility]) Systolic blood pressure 140 mm[Hg] 140 mm[Hg] e CW1 ([facility]) Body temperature 98.2 [degF] 98.2 [degF] eCW1 ( [facility]) Respiratory rate 18 /min 18 /min eCW1 ([facility]) Heart rate 92 /min 92 /min eCW1 ([facility]) Body mass index (BMI) [Ratio] 48.80 kg/m2 48.80 kg/m2 eCW1 ([facility]) Body height 73.5 [in_us] 73.5 [in_us] eCW1 ([facility]ly [facility]) Body weight Measured 375 [lb_av] 375 [lb_av] eC W1 ([facility]ly [facility]) ID Date Data Source [id number] 02/23/2020 01:40:[address] [facility] Name Value Range Interpretation Code Description Data Source(s) TRANSFER FROM [facility] ID Date Data Source [id number] 01/15/2020 08:46:[address] [facility] Name Value Range Interpretation Code Description Data Source(s) TRANSFER FROM [facility] ID Date Data Source [id number] 12/02/2019 04:44:07 PM [facility] Name Value Range Interpretation Code Description Data Source(s) TRANSFER FROM [facility] Patient Treatment Plan of Care Planned Activity Planned Date Details Description Data Source (s) Cholecalciferol 1000 UNT Oral Tablet 12/02/2019 12:00:[address] [facility] Melatonin 5 MG Oral Tablet 12/02/2019 12:00:[address] [facility] benztropine mesylate 0.5 MG Oral Tablet 12/02/2019 12:00:[address] [facility] olanzapine 5 MG Disintegrating Oral Tablet 12/02/2019 12:00:00 AM [facility] Nicotine 4 MG/ACTUAT Inhalant Solution 12/02/2019 12:00:[address] [facility] olanzapine 5 MG Disintegrating Oral Tablet 11/26/2019 02:45:37 PM [facility] Magnesium Hydroxide 80 MG/ML Oral Suspension 11/26/2019 02:45:[address] [facility] Aluminum Hydroxide 40 MG/ML / Magnesium Hydroxide 40 MG/ML / Simethicone 4 MG/ML Oral Suspension 11/26/2019 02:45:21 AM [facility] Hydroxyzine Hydrochloride 50 MG Oral Tablet 11/26/2019 02:45:[address] [facility] Ondansetron 4 MG Disintegrating Oral Tablet 11/26/2019 02:45:[address] [facility] Acetaminophen 325 MG Oral Tablet 11/26/2019 02:45:[address] [facility] Sulfamethoxazole 800 MG / Trimethoprim 160 MG Oral Tab let [Bactrim] 06/01/2019 12:00:00 AM EDT eCW1 ([facility])
[2020-03-19 10:38] LABS: ERYTHROCYTE SEDIMENTATION RATE 8 mm/hr (0-15)
[2020-03-19 11:02] LABS: ACETAMINOPHEN LEVEL < 2.0 UG/ML (10.0-30.0); ALBUMIN 3.5 GM/DL (3.2-5.2); ALT/SGPT 54 U/L (12-78); BILIRUBIN,DIRECT 0.1 MG/DL (0.0-0.2); BILIRUBIN,TOTAL 0.2 MG/DL (0.2-1.0); BLOOD UREA NITROGEN 11 MG/DL (7-18); C REACTIVE PROTEIN QUANTITATIV 1.35 MG/DL (0.00-0.30); CALCIUM LEVEL 8.5 MG/DL (8.5-10.1); CARBON DIOXIDE LEVEL 22 MEQ/L (21-32); CHLORIDE LEVEL 107 MEQ/L (98-107); CREATININE FOR GFR 1.07 MG/DL (0.70-1.30); ETHYL ALCOHOL (ETHANOL) < 0.003 % (0.000-0.010); GLOMERULAR FILTRATION RATE > 60.0 (>60); GLUCOSE, FASTING 101 MG/DL (70-100); POTASSIUM SERUM 4.1 MEQ/L (3.5-5.1); SALICYLATE LEVEL < 1.7 MG/DL (5.0-30.0); SODIUM LEVEL 141 MEQ/L (136-145); TOTAL PROTEIN 7.1 GM/DL (6.4-8.2)
[2020-03-19 11:40] LABS: AMPHETAMINES LEVEL URINE NEGATIVE (NEGATIVE); BARBITURATES URINE NEGATIVE (NEGATIVE); BENZODIAZEPINES URINE NEGATIVE (NEGATIVE); CANNABINOIDS URINE POSITIVE (NEGATIVE); COCAINE METABOLITE URINE NEGATIVE (NEGATIVE); METHADONE URINE NEGATIVE (NEGATIVE); OPIATES URINE NEGATIVE (NEGATIVE); PHENCYCLIDINE URINE NEGATIVE (NEGATIVE)
== END 2020-03-19 13:35 | disposition home or self-care (01) ==
LOC: M ED 09:23
DX: M79.9 Soft tissue disorder, unspecified (principal); F19.10 Other psychoactive substance abuse, uncomplicated; F33.9 Major depressive disorder, recurrent, unspecified; F41.9 Anxiety disorder, unspecified; F20.9 Schizophrenia, unspecified; Z79.899 Other long term (current) drug therapy
CPT/HCPCS: 36415; 73130; 80048; 80076; 80307; 81001; 84443; 85025; 85652; 86140; 99283; G0480

== ENCOUNTER → 2020-04-22 | Outpatient (CLI) | payer OTHER ==
[~2020-04-22] MED LIST changes: +QUET50TA3 PO; -QUET5TAB PO; +TRAM50TA2
[2020-04-22 12:18] LABS: ALBUMIN 3.9 GM/DL (3.2-5.2); ALT/SGPT 146 U/L (12-78); BILIRUBIN,TOTAL 0.4 MG/DL (0.2-1.0); BLOOD UREA NITROGEN 19 MG/DL (7-18); CALCIUM LEVEL 8.9 MG/DL (8.5-10.1); CARBON DIOXIDE LEVEL 31 MEQ/L (21-32); CHLORIDE LEVEL 105 MEQ/L (98-107); CHOLESTEROL LEVEL 165 MG/DL (<200); CHOLESTEROL RISK RATIO 4.024 (<5); CREATININE FOR GFR 0.96 MG/DL (0.70-1.30); GLOMERULAR FILTRATION RATE > 60.0 (>60); GLUCOSE, FASTING 79 MG/DL (70-100); HDL CHOLESTEROL 41 MG/DL (>40); LDL CHOLESTEROL 112 MG/DL (<100); NON-HDL-C 124 MG/DL; POTASSIUM SERUM 4.5 MEQ/L (3.5-5.1); SODIUM LEVEL 141 MEQ/L (136-145); TOTAL PROTEIN 7.3 GM/DL (6.4-8.2); TRIGLYCERIDES LEVEL 60 MG/DL (<150)
[2020-04-22 12:53] LABS: HIV 1&2 SCREEN CENTAUR NEGATIVE (NEGATIVE)
[2020-04-22 13:12] LABS: HEPATITIS C VIRUS ABY INDEX > 11.0 INDEX (<0.8)
[2020-04-22 13:20] LABS: APPEARANCE, URINE HAZY (CLEAR); BACTERIA, URINE AUTO 1+ (NEGATIVE); BILIRUBIN, URINE AUTO NEGATIVE (NEGATIVE); BLOOD, URINE BLOOD NEGATIVE (NEGATIVE); COLOR, URINE YELLOW (YELLOW); GLUCOSE, URINE (UA) AUTO NEGATIVE (NEGATIVE); KETONE, URINE AUTO NEGATIVE (NEGATIVE); LEUKOCYTE ESTERASE, URINE AUTO NEGATIVE (NEGATIVE); MUCUS, URINE SMALL (NEGATIVE); NITRITE, URINE AUTO NEGATIVE (NEGATIVE); PROTEIN, URINE AUTO NEGATIVE (NEGATIVE); RBC, URINE AUTO 0 /HPF (0-3); SPECIFIC GRAVITY URINE AUTO 1.026 (1.002-1.035); SQUAMOUS EPITHELIAL CELL UR AU 1 /HPF (0-6); UROBILINOGEN, URINE AUTO 0.2 mg/dL (0.0-2.0); WBC, URINE AUTO 2 /HPF (0-3)
[2020-04-22 13:48] LABS: HEMOGLOBIN A1c 5.2 %
== END ==
LOC: M PLALAB 08:24
DX: F19.11 Other psychoactive substance abuse, in remission (principal); Z68.42 Body mass index [BMI] 45.0-49.9, adult; F25.0 Schizoaffective disorder, bipolar type; R03.0 Elevated blood-pressure reading, without diagnosis of hypertension

== ENCOUNTER → 2020-05-05 | Outpatient (REF) | payer OTHER ==
[2020-05-05 12:36] LABS: BASO % 0.5 % (0.0-1.0); EOS # 0.5 10^3/uL (0.0-0.5); EOS % 8.6 % (0.0-3.0); HEMATOCRIT 45.2 % (42.0-52.0); LYMPH # 2.2 10^3/uL (1.5-5.0); LYMPH % 36.9 % (24.0-44.0); MEAN CORPUSCULAR HEMOGLOBIN 29.6 pg (27.0-33.0); MEAN CORPUSCULAR HGB CONC 33.2 g/dl (32.0-36.5); MEAN CORPUSCULAR VOLUME 89.2 fl (80.0-96.0); MONO # 0.5 10^3/uL (0.0-0.8); MONO % 8.3 % (2.0-8.0); NEUTROPHILS # 2.7 10^3/uL (1.5-8.5); NEUTROPHILS % 45.4 % (36.0-66.0); PLATELET COUNT, AUTOMATED 251 10^3/uL (150-450); RED BLOOD COUNT 5.07 10^6/uL (4.30-6.10); WHITE BLOOD COUNT 5.9 10^3/uL (4.0-10.0)
[2020-05-05 13:30] LABS: HEPATITIS B SURFACE ANTIBODY POSITIVE (POSITIVE); HEPATITIS B SURFACE ANTIGEN NEGATIVE (NEGATIVE)
== END ==
LOC: M SFHCPLAZ 10:14
PROVIDERS: ATTEND Student in an Organized Health Care Education/Training Program
DX: B18.2 Chronic viral hepatitis C (principal)

== ENCOUNTER → 2020-06-20 | Outpatient (CLI) | payer OTHER, MEDICAID ==
[~2020-06-20] MED LIST changes: +BACTDSTA PO; -SULF1TAB93 PO
[2020-06-20 15:39] LABS: BASO % 0.4 % (0.0-1.0); EOS # 0.2 10^3/uL (0.0-0.5); EOS % 3.2 % (0.0-3.0); HEMOGLOBIN 14.5 g/dl (13.5-17.5); LYMPH # 2.3 10^3/uL (1.5-5.0); LYMPH % 32.5 % (24.0-44.0); MEAN CORPUSCULAR HEMOGLOBIN 28.2 pg (27.0-33.0); MEAN CORPUSCULAR HGB CONC 32.2 g/dl (32.0-36.5); MEAN CORPUSCULAR VOLUME 87.5 fl (80.0-96.0); MONO # 0.5 10^3/uL (0.0-0.8); MONO % 6.8 % (2.0-8.0); NEUTROPHILS # 4.1 10^3/uL (1.5-8.5); NEUTROPHILS % 56.8 % (36.0-66.0); PLATELET COUNT, AUTOMATED 275 10^3/uL (150-450); RED BLOOD COUNT 5.14 10^6/uL (4.30-6.10); WHITE BLOOD COUNT 7.2 10^3/uL (4.0-10.0)
[2020-06-20 16:20] LABS: HEPATITIS B SURFACE ANTIBODY POSITIVE (POSITIVE); HEPATITIS B SURFACE ANTIGEN NEGATIVE (NEGATIVE)
[2020-06-24 16:09] LABS: HEPATITIS A IgG TOTAL Negative (Negative); HEPATITIS B CORE ANTIBODY IGG Negative (Negative); HEPATITIS C QUANTITATION <15 IU/mL (.)
== END ==
LOC: M PLALAB 13:00
PROVIDERS: ATTEND Student in an Organized Health Care Education/Training Program
DX: B18.2 Chronic viral hepatitis C (principal)

== ENCOUNTER → 2020-09-20 | Outpatient (REF) | payer OTHER, MEDICAID ==
[~2020-09-20] MED LIST changes: +BACT800T5 PO; -OLAN10TA2; -OLAN10TA2 PO; +OLAN1TAB16 PO; +OLAN1TAB20; +OLAN1TAB20 PO; -OLAN5TAB PO; +OMEP-173 PO; -OMEP-218 PO; -QUET50TA3 PO; +QUET50TA4 PO; +ZIPR60CA11
[2020-09-20 19:24] LABS: AMORPHOUS SEDIMENT SMALL (NEGATIVE); APPEARANCE, URINE TURBID (CLEAR); BACTERIA, URINE AUTO 2+ (NEGATIVE); BILIRUBIN, URINE AUTO NEGATIVE (NEGATIVE); BLOOD, URINE BLOOD NEGATIVE (NEGATIVE); COLOR, URINE YELLOW (YELLOW); GLUCOSE, URINE (UA) AUTO NEGATIVE (NEGATIVE); KETONE, URINE AUTO NEGATIVE (NEGATIVE); LEUKOCYTE ESTERASE, URINE AUTO 1+ (NEGATIVE); MUCUS, URINE SMALL (NEGATIVE); NITRITE, URINE AUTO POSITIVE (NEGATIVE); PROTEIN, URINE AUTO NEGATIVE (NEGATIVE); RBC, URINE AUTO 1 /HPF (0-3); SQUAMOUS EPITHELIAL CELL UR AU 3 /HPF (0-6); UROBILINOGEN, URINE AUTO 0.2 mg/dL (0.0-2.0); WBC, URINE AUTO 5 /HPF (0-3)
[2020-09-20 22:39] LABS: GC DNA AMPLIFICATION NEGATIVE (NEGATIVE)
== END ==
LOC: M SFHCPLAZ 17:37
PROVIDERS: ATTEND Student in an Organized Health Care Education/Training Program
DX: R39.89 Other symptoms and signs involving the genitourinary system (principal)

== ENCOUNTER 2020-12-21 12:23 | Emergency (ER) | payer OTHER, MEDICAID ==
[~2020-12-21] VITALS: Ht 193 cm; Wt 195.4 kg
[~2020-12-21 12:23] MED LIST changes: -BACT800T5 PO; -OMEP-173 PO; +OMEP-218 PO; -ZIPR60CA11
--- OUTSIDE RECORDS SUMMARY | 2020-12-21 12:30 | CCD ---
Author Author [facility] Organization [facility] Address Unknown Phone Unavailable Care Team Providers Care Biofuels Production Technician Name Role Phone Benoit Danielle Unavailable PROBLEMS Type Condition ICD9-CM Code [id number] Code Onset Dates Condition S tatus W/U Status Risk SNOMED Code Notes Problem Morbid obesity E66.01 Active confirmed 57601 6002 Problem Depression F32.9 Active confirmed 02359045 Problem Vitamin D deficiency E55.9 Active confirmed 97879865 Problem Generalized anxiety disorder F41.1 Active confirme d 65059956 Problem Lipoprotein deficiency E78.6 Active confirmed 751157340 Problem Psychophysiological insomnia F51.04 Active confirme d 982121370 Problem Schizophrenia, unspecified type F20.9 Active confi rmed 98621678 Problem Uncomplicated asthma, unspecified asthma severity J45.909 Active confirmed 498052356 Problem History of drug abuse F19.11 Active confirmed 122113327 Problem BMI 45.0-49.9, adult Z68.42 Active confirmed 552112332 Problem Schizoaffective disorder, bipolar type F25.0 A ctive confirmed 85979758 Problem Sleep apnea in adult G47.30 Active confirmed 26797140 Problem Schizophrenia, paranoid type F20.0 Active confirme d 55573664 Problem Acute hepatitis C virus infection without hepatic coma B17.10 Active confirmed 991977923 Problem Drug abuse F19.10 Active confirmed 92210467 Problem History of intravenous drug abuse F19.11 Active confirmed 08046375491517419 Problem History of MRSA infection Z86.14 Active confirmed 161654915 Problem Chronic hepatitis C without hepatic coma B18.2 Active confirmed 008114753 Problem Obesity, morbid, BMI 50 or higher E66.01 Active confirmed 290070350 ALLERGIES Allergen (clinical drug ingredient) Drug/Non Drug Allergy do cumented on EMR Reaction Allergy Type Onset Date Status enviromental sneezing , itchy watety eyes Non Drug Allergy Active Lactose lactose stomach aches Non Drug Allergy Activ e ENCOUNTERS from 1993 to 2020-10-17 Encounter Location Date Provider Diagnosis [facility] [place] Resident [address] [phone] [place] [address] 10 Jun, 2020 Benoit Danielle Schizoaffective diso rder, bipolar type F25.0 ; Acute hepatitis C virus infection without hepatic coma B17.10 ; Elevated blood pressure reading without diagnosis of hypertension R03.0 ; Refused pneumococcal vaccination Z28.21 and Obesity, morbid, BMI 50 or higher E66.01 IMMUNIZATIONS Vaccine Route Administration Date Status Hepatitis A Adult 1.0mL Havrix IM Intramuscular May 13, 2020 Administered Influenza 6mo & up Fluzone Unknown Jan 22, 2017 Other s Influenza 6mo & up Fluzone Unknown Dec 21, 2015 Refus ed Hepatitis B Adult 1.0mL Engerix-B IM Intramuscular Sep 20, 2020 Administered SOCIAL HISTORY Tobacco Use: Social History Observation Description Date Details (start date - stop date) Current Smoker Sex Assigned At : Social History Observation Description Sex Assigned At Unknown Education: Question Answer Notes Level of Education: Not Finished College Audit Question Answer Notes Total Score: 0 Interpretation: Alcohol Education Language: Question Answer Notes Languages spoken: Albanian Druze: Question Answer Notes Druze 01 Agnostic Sexual Hx: Question Answer Notes Had sex in the last 12 months (vaginal, oral, or anal)? Yes Have you ever had an STD? No Prevention Strategies discussed: Other with Women only Use protection? No Drug and Alcohol Question Answer Notes Total Score: 9 Interpretation: Substantial level Alcohol Screening: Question Answer Notes Did you have a drink containing alcohol in the past year? No Did you have a drink containing alcohol in the past year? Ye s Points 0 Points 1 Interpretation Negative Interpretation Negative How many drinks did you have on a typica l day when you were drinking in the past year? 1 or 2 (0 points) How often did you have a drink containing alcohol in t he past year? Monthly or less (1 point) BMI Care Goal Follow-Up Question Answer Notes Above Normal BMI Follow-Up Dietary management educatio n, guidance, and counseling Tobacco Use: Question Answer Notes Are you a: current smoker Patient counseled on the dangers of tobacco use and urged to quit: 04/21/2020 How many cigarettes a day do you smoke? 6-10 Are you interested in quitting? Not ready to quit Counseled the patient on smoking effects, education provided 04/21/2020 REASON FOR REFERRAL No Information VITAL SIGNS Weight 400.8 lbs June, Height 6'6 in June, BMI 54.35 kg/m2 June, Heart Rate 97 /min June, Respiratory Rate 18 /min June, Temperature 99.2 degrees Fahrenheit June, Oximetry 98 June, Blood pressure systolic 124 mm Hg June, Blood pressure diastolic 78 mm Hg June, MEDICATIONS Medication SIG (Take, Route, Frequency, Duration) Notes Start Da te End Date Status OLANZapine 10 MG 1 tablet Orally Once a day for 30 day(s) Not-Taking Geodon 20 MG 1 capsule with food Orally Twice a day for 30 day(s) Active PROCEDURES No Information RESULTS No Results REASON FOR VISIT follow up MEDICAL (GENERAL) HISTORY Type Description Date Medical History situational disturbances Medical History low Vitamin D, Vitamin B12 Medical History GERD- since childhood Medical History ASTHMA - was using Advair and albuterol Medical History DEPRESSION-(tx at age 10 for 2 yrs with cymbalta and abilify) Medical History Allergic rhintis- used flonase in past Medical History Patient goes to and recei ves counselling- Has anxiety disorder (stress induced) Medical History Vitamin D deficiency Medical History Hx Vitamin B12 deficiency (poor dietary intake) Medical History Allergic rhinitis Medical History Asthma Medical History Morbid obesity Medical History Anxiety Surgical History ADNOIDS REMOVAL Surgical History TUBES IN EARS Surgical History bilateral trans-scrotal orchidopexy x2 a 2011 Hospitalization History substance abuse 04/2020 Hospitalization History [facility] 01/2020 Hospitalization History [facility] 02/2020 Goals Section No Information Health Concerns No Information MEDICAL EQUIPMENT No Information MENTAL STATUS No Information FUNCTIONAL STATUS No Information ASSESSMENTS Encounter Date Diagnosis Assessment Notes Treatment Notes Treatm ent Clinical Notes June, Schizoaffective disorder, bipolar type (ICD-10 - F25.0) Patient has been doing very well in the 2 and half months since established with la. His mood remains well controlled and this is with the transition from olanzapine to Geodon. He has had no episodes of cosme and has abstained from intravenous drug use. He now has a stable living arrangement through transitional life services. We will see how the switch from olanzapine to Geodon does in terms of decreasing his appetite/weight gain. Thus far, he has tolerated Geodon without any side effects. Currently following with community clinic nurse practitioner who is working to get patient consistent outpatient appointments with a psychiatrist. Had a productive initial counseling session with Wayne Veliz of [facility] last month. June, Acute hepatitis C virus infe ction without hepatic coma (ICD-10 - B17.10) Based on downtrending HCV RNA PCR, it appears patient's hep C is spontaneously resolving. At this point, referral to infectious disease for 12 weeks of Epclusa treatment is not indicated. We will check again at a later follow-up to assess for sustained clearance. Continues to have no fibrosis and no to minimal necroinflammation on repeat fibrosure testing. Vaccinated against HPV prior to establishing with la. Received first of 2 HAV vaccines at last appointment (next will be due at the end of October 2020). June, Elevated blood pressure read ing without diagnosis of hypertension (ICD-10 - R03.0) Today michael the third appointment I have had with patient, and for the third consecutive time his pressures were elevated (elevated BP Per ACC/AHA guidelines). Today he was 124/78. Previously provided patient with Dash booklet. We counseled the patient again on weight loss and discussed ways he can try to improve diet and incorporate exercise into his daily routine. Lifestyle modification will remain our focus as a relates to improving his pressures. Hopefully the transition off of olanzapine to Geodon will improve his weight gain. June, Refused pneumococcal vaccination (ICD-10 - Z28.2 1) Refused Pneumovax 23 vaccination today. He has a positive smoking history in the form of marijuana (1 to 2 times per week) and cigarettes (1 to 2 cigarettes/week). He also vapes daily. June, Obesity, morbid, BMI 50 or higher (ICD-10 - E66. 01) As previously discussed, hopefully appetite will decrease somewhat now that he is off of olanzapine and taking Geodon. We had an extensive conversation about how this is his most important lifestyle modification to focus on. Previously received healthful dietary practices paperwork and we again mentioned ways to improve diet. We spent a considerable amount of time today talking about the risks associated with being this obese, as well as ways to incorporate activity/exercise into his daily routine. Patient understands everything that we collaboratively discussed, and feels now that his mood has been stabilized for the past few months, he is finally at a place to begin focusing on weight loss. Patient was offered a lot of encouragement today and congratulated on how far he has come as a relates to his schizoaffective disorder. Of note, previous A1c was obtained and patient is not diabetic nor prediabetic. We will continue to monitor his weight and assess on follow-up. PLAN OF TREATMENT Treatment Notes Assessment Notes Clinical Notes Schizoaffective disorder, bipolar type P lawrence has been doing very well in the 2 and half months since established with la. His mood remains well controlled and this is with the transition from olanzapine to Geodon. He has had no episod es of cosme and has abstained from intravenous drug use. He now has a stable living arrangement through transitional life services. We will see how the switch from olanzapine to Geodon does in terms of decreasing his appetite/weight gain. Thus far, he has tolerated Geodon without any side effects.Currently following with community clinic nurse practitioner who is working to get patient consistent outpatient appointments with a psychiatrist.Had a productive initial counseling session with Wayne Veliz of [facility] last month. Acute hepatitis C virus infection without hepatic coma Based on downtrending HCV RNA PCR, it appears patient's hep C is spontaneously resolving. At this point, referral to infectious disease for 12 weeks of Epclusa treatment is not indicated. We will check again at a later follow-up to assess for sustained clearance.Continues to have no fibrosis and no to minimal necroinflammation on repeat fibrosure testing.Vaccinated against HPV prior to establishing with la. Received first of 2 HAV vaccines at last appointment (next will be due at the end of October 2020). Elevated blood pressure reading without diagnosis of hyperte nsion Today michael the third appointment I have had with patient, and for the third consecutive time his pressures were elevated (elevated BP Per ACC/AHA guidelines). Today he was 124/78. Previously provided patient with Dash booklet. We counseled the patient again on weight loss and discussed ways he can try to improve diet and incorporate exercise into his daily routine. Lifestyle modification will remain our focus as a relates to improving his pressures. Hopefully the transition off of olanzapine to Geodon will improve his weight gain. Refused pneumococcal vaccination Refused Pneumovax 23 vaccination today.He has a positive smoking history in the form of marijuana (1 to 2 times per week) and cigarettes (1 to 2 cigarettes/week). He also vapes daily. Obesity, morbid, BMI 50 or higher As pre viously discussed, hopefully appetite will decrease somewhat now that he is off of olanzapine and taking Geodon. We had an extensive conversation about how this is his most important lifestyle mo dification to focus on. Previously received healthful dietary practices paperwork and we again mentioned ways to improve diet. We spent a considerable amount of time today talking about the risks associated with being this obese, as well as ways to incorporate activity/exercise into his daily routine. Patient understands everything that we collaboratively discussed, and feels now that his mood has been stabilized for the past few months, he is finally at a place to begin focusing on weight loss. Patient was offered a lot of encouragement today and congratulated on how far he has come as a relates to his schizoaffective disorder. Of note, previous A1c was obtained and patient is not diabetic nor prediabetic. We will continue to monitor his weight and assess on follow-up. Next Appt Details 3 Months Reason:weight, BH/Geodone, Hep C f/u Follow Up:3 Monthsweight, BH/Geodone, Hep C f/u Insurance Providers Payer Name Payer Address Payer Phone Insured Name Patient Relati onship to Insured Coverage Start Date Coverage End Date [facility] [employer] [facility] [address] [facility] [phone] ANKUSH MCGEE self
--- OUTSIDE RECORDS SUMMARY | 2020-12-21 12:30 | CCD ---
Author Author Harpal Vasquez Organization [facility] Address Unknown Phone Unavailable Care Team Providers Care Hand Bunch Maker Name Role Phone Smita Vasquez PCP Unavailable Allergies, Adverse Reactions, Alerts Allergy Substance Code C odeSystem Reaction Severity Critic ality Status Start Date Moderate Medications Medication Medication Code Medication CodeSystem Start Date Stop Date Route Dose Status Fill Instructions RxNorm Problems Problem Name Code CodeSy stem Alternate Code Alternate CodeSystem Start Date End Date Status Narrative Depressive episode, unspecified 67563026 SNOMED-CT 2019-11-13 Active Depressive episode, unspecified 50874329 SNOMED-CT 2019-11-13 Active Depressive episode, unspecified 04388277 SNOMED-CT 2019-11-13 Active Tobacco use 905905368 S NOMED-CT 2019-11-13 Active Tobacco use 754197659 S NOMED-CT 2019-11-13 Active Schizophrenia, unspecified 35107414 SNOMED- CT 2019-10-09 Active Tobacco use 542169088 S NOMED-CT 2019-11-13 Active Schizophrenia, unspecified 89680391 SNOMED- CT 2019-10-09 Active Tobacco use 660419359 S NOMED-CT 2019-11-13 Active Depressive episode, unspecified 65790057 SNOMED-CT 2019-11-13 Active Schizophrenia, unspecified 53603128 SNOMED- CT 2019-10-09 Active Schizophrenia, unspecified 51567365 SNOMED- CT 2019-10-09 Active Relevant diagnostic tests/laboratory data Narrative No Information Procedures Procedure Name Code Code System Target Site Date of Procedure Status Service Delivery Location Device Cod e Device Name Device [facility] Psychiatric Diagnostic Evaluation without medical serv ices [id number] SNOMED-CT () 2019-11-[address], [id number] SNOMED-CT () 2020-06-18 completed [facility] [address] [place] [address], [id number] SNOMED-CT () 2020-07-19 completed [facility] [address] [place] [address], [id number] SNOMED-CT () 2020-08-18 completed [facility] [address] [place] [address], [id number] SNOMED-CT () 2020-09-18 completed [facility] [address] [place] [address], [id number] SNOMED-CT () 2020-10-19 completed [facility] [address] [place] [address], [id number] SNOMED-CT () 2020-06-18 completed [facility] [address] [place] [address], [id number] SNOMED-CT () 2020-07-19 completed [facility] [address] [place] [address], [id number] SNOMED-CT () 2020-08-18 completed [facility] [address] [place] [address], [id number] SNOMED-CT () 2020-09-18 completed [facility] [address] [place] [address], [id number] SNOMED-CT () 2020-10-19 completed [facility] [address] [place] [address], [id number] SNOMED-CT () 2020-06-02 completed [facility] [address] [place] [address], [id number] [phone] Encounters/Encounter Diagnoses Encounter Name Encounter Code Diagnosis Code Diagnosis Name Diagnosis CodeSystem Date of Diagnosis Service Delivery L ocation non-billable 00156 53722 006 Schizophrenia, unspecified SNOMED-CT 2020-10-19 [facility] , , , Vital Signs No Information Social History Element Description Description Start Date End Date Code CodeSystem AdditionalInfo SexAssignedAtBirth Male 1995 M AdministrativeGender Hospital Discharge Instructions * Reason For Referral Medical Equipment * FDA Assessments * Goals Section Goals Planned DateTime DLS - I will clean my apartment. 09-07-11 MMT - I will call in and obtain my own refills. 2020-06-29 SM - I will use coping skills. 2020 SAS - I will stay clean and sober. 2020-06-29
--- OUTSIDE RECORDS SUMMARY | 2020-12-21 12:30 | CCD ---
Author Author Harpal Vasquez Organization [facility] Address Unknown Phone Unavailable Care Team Providers Care Synchronous Motor Assembler Name Role Phone Smita Vasquez PCP Unavailable Allergies, Adverse Reactions, Alerts Allergy Substance Code C odeSystem Reaction Severity Critic ality Status Start Date Moderate Medications Medication Medication Code Medication CodeSystem Start Date Stop Date Route Dose Status Fill Instructions RxNorm Problems Problem Name Code CodeSy stem Alternate Code Alternate CodeSystem Start Date End Date Status Narrative Tobacco use 998202092 S NOMED-CT 2019-11-13 Active Depressive episode, unspecified 56515781 SNOMED-CT 2019-11-13 Active Schizophrenia, unspecified 66636419 SNOMED- CT 2019-10-09 Active Schizophrenia, unspecified 97699916 SNOMED- CT 2019-10-09 Active Tobacco use 905788980 S NOMED-CT 2019-11-13 Active Depressive episode, unspecified 49878077 SNOMED-CT 2019-11-13 Active Tobacco use 407106951 S NOMED-CT 2019-11-13 Active Depressive episode, unspecified 37067167 SNOMED-CT 2019-11-13 Active Schizophrenia, unspecified 21626819 SNOMED- CT 2019-10-09 Active Depressive episode, unspecified 39594229 SNOMED-CT 2019-11-13 Active Schizophrenia, unspecified 42202115 SNOMED- CT 2019-10-09 Active Tobacco use 236404469 S NOMED-CT 2019-11-13 Active Relevant diagnostic tests/laboratory data Narrative No Information Procedures Procedure Name Code Code System Target Site Date of Procedure Status Service Delivery Location Device Cod e Device Name Device [facility] Psychiatric Diagnostic Evaluation without medical serv ices [id number] SNOMED-CT () 2019-11-[address], [id number] SNOMED-CT () 2020-06-18 completed [facility] [address] [place] [address], [id number] SNOMED-CT () 2020-07-19 completed [facility] [address] [place], [place], [id number] SNOMED-CT () 2020-08-18 completed [facility] [address] [place], [place], [id number] SNOMED-CT () 2020-09-18 completed [facility] [address] [place], [place], [id number] SNOMED-CT () 2020-10-19 completed [facility] [address] [place], [place], [id number] SNOMED-CT () 2020-11-18 completed [facility] [address] [place], [place], [id number] SNOMED-CT () 2020-12-19 completed [facility] [address] [place], [place], [id number] SNOMED-CT () 2020-06-18 completed [facility] [address] [place], [place], [id number] SNOMED-CT () 2020-07-19 completed [facility] [address] [place], [place], [id number] SNOMED-CT () 2020-08-18 completed [facility] [address] [place], [place], [id number] SNOMED-CT () 2020-09-18 completed [facility] [address] [place], [place], [id number] SNOMED-CT () 2020-10-19 completed [facility] [address] [place] [address], [id number] SNOMED-CT () 2020-11-18 completed [facility] [address] [place], [place], [id number] SNOMED-CT () 2020-12-19 completed [facility] [address] [place], [place], [id number] SNOMED-CT () 2020-06-02 completed [facility] [address] [place], [place], [id number] [id number] Encounters/Encounter Diagnoses Encounter Name Encounter Code Diagnosis Code Diagnosis Name Diagnosis CodeSystem Date of Diagnosis Service Delivery L ocation non-billable 16465 [id number] 006 Schizophrenia, unspecified SNOMED-CT 2020-12-20 [facility] , , , Vital [...] I will stay clean and sober. 2020-06-29 SD - I will find employment in the community. 2020-11-25 HS - I will be more healthy. 2020-02 0-08 CI - I will use my community resources. 2020-11-25 AT - I will be more assertive. 11-25
--- OUTSIDE RECORDS SUMMARY | 2020-12-21 12:30 | CCD ---
Author Author Harpal Vasquez Organization [facility] Address Unknown Phone Unavailable Care Team Providers Care Shot Polisher Name Role Phone Smita Vasquez PCP Unavailable Allergies, Adverse Reactions, Alerts Allergy Substance Code C odeSystem Reaction Severity Critic ality Status Start Date Moderate Medications Medication Medication Code Medication CodeSystem Start Date Stop Date Route Dose Status Fill Instructions RxNorm Problems Problem Name Code CodeSy stem Alternate Code Alternate CodeSystem Start Date End Date Status Narrative Schizophrenia, unspecified 10114637 SNOMED- CT 2019-10-09 Active Tobacco use 775565448 S NOMED-CT 2019-11-13 Active Depressive episode, unspecified 12149154 SNOMED-CT 2019-11-13 Active Tobacco use 392085782 S NOMED-CT 2019-11-13 Active Depressive episode, unspecified 12281562 SNOMED-CT 2019-11-13 Active Schizophrenia, unspecified 59798782 SNOMED- CT 2019-10-09 Active Tobacco use 292029221 S NOMED-CT 2019-11-13 Active Schizophrenia, unspecified 55504948 SNOMED- CT 2019-10-09 Active Depressive episode, unspecified 09719067 SNOMED-CT 2019-11-13 Active Depressive episode, unspecified 50367706 SNOMED-CT 2019-11-13 Active Schizophrenia, unspecified 47689035 SNOMED- CT 2019-10-09 Active Tobacco use 116575974 S NOMED-CT 2019-11-13 Active Relevant diagnostic tests/laboratory data Narrative No Information Procedures Procedure Name Code Code System Target Site Date of Procedure Status Service Delivery Location Device Cod e Device Name Device [facility] Psychiatric Diagnostic Evaluation without medical serv ices [id number] SNOMED-CT () 2019-11-[address], [id number] SNOMED-CT () 2020-06-18 completed [facility] [address] [place] [address], [id number] SNOMED-CT () 2020-07-19 completed [facility] [address] [place] [address], [id number] SNOMED-CT () 2020-08-18 completed [facility] [address] [place] [address], [id number] SNOMED-CT () 2020-09-18 completed [facility] [address] [place] [address], [id number] SNOMED-CT () 2020-10-19 completed [facility] [address] [place] [address], [id number] SNOMED-CT () 2020-11-18 completed [facility] [address] [place] [address], [id number] SNOMED-CT () 2020-06-18 completed [facility] [address] [place] [address], [id number] SNOMED-CT () 2020-07-19 completed [facility] [address] [place] [address], [id number] SNOMED-CT () 2020-08-18 completed [facility] [address] [place] [address], [id number] SNOMED-CT () 2020-09-18 completed [facility] [address] [place] [address], [id number] SNOMED-CT () 2020-10-19 completed [facility] [address] [place] [address], [id number] SNOMED-CT () 2020-11-18 completed [facility] [address] [place] [address], [id number] SNOMED-CT () 2020-06-02 completed [facility] [address] [place], [place], [id number] [phone] Encounters/Encounter Diagnoses Encounter Name Encounter Code Diagnosis Code Diagnosis Name Diagnosis CodeSystem Date of Diagnosis Service Delivery L ocation non-billable 69822 01369 006 Schizophrenia, unspecified SNOMED-CT 2020-11-18 [facility] , , , Vital [...]
--- OUTSIDE RECORDS SUMMARY | 2020-12-21 12:30 | CCD ---
Author Author [facility] Organization [facility] Address Unknown Phone Unavailable Care Team Providers Care Fusion Juncture Grinder Name Role Phone Benoit Danielle Unavailable PROBLEMS Type Condition ICD9-CM Code OLX11-NM Code Onset Dates Condition S tatus W/U Status Risk SNOMED Code Notes Problem Morbid obesity E66.01 Active confirmed 68240 6002 Problem Depression F32.9 Active confirmed 17311309 Problem Vitamin D deficiency E55.9 Active confirmed 96412267 Problem Generalized anxiety disorder F41.1 Active confirme d 52602122 Problem Lipoprotein deficiency E78.6 Active confirmed 789520144 Problem Psychophysiological insomnia F51.04 Active confirme d 471338788 Problem Schizophrenia, unspecified type F20.9 Active confi rmed 79111405 Problem Uncomplicated asthma, unspecified asthma severity J45.909 Active confirmed 632483440 Problem History of drug abuse F19.11 Active confirmed 264174383 Problem BMI 45.0-49.9, adult Z68.42 Active confirmed 610062485 Problem Schizoaffective disorder, bipolar type F25.0 A ctive confirmed 83771793 Problem Sleep apnea in adult G47.30 Active confirmed 20246037 Problem Schizophrenia, paranoid type F20.0 Active confirme d 38056682 Problem Acute hepatitis C virus infection without hepatic coma B17.10 Active confirmed 313184345 Problem Drug abuse F19.10 Active confirmed 23852336 Problem History of intravenous drug abuse F19.11 Active confirmed 50070691579894006 Problem History of MRSA infection Z86.14 Active confirmed 650281595 Problem Chronic hepatitis C without hepatic coma B18.2 Active confirmed 397138781 Problem Obesity, morbid, BMI 50 or higher E66.01 Active confirmed 637981567 ALLERGIES Allergen (clinical drug ingredient) Drug/Non Drug Allergy do cumented on EMR Reaction Allergy Type Onset Date Status enviromental sneezing , itchy watety eyes Non Drug Allergy Active Lactose lactose stomach aches Non Drug Allergy Activ e ENCOUNTERS from 1993 to 2020-11-02 Encounter Location Date Provider Diagnosis [facility] Resident [phone] [place] [address] 26 Apr, 2020 Benoit Danielle Chronic hepatitis C without hepatic coma B18.2 ; Encounter for vaccination Z23 ; Preventative health care Z00.00 ; Schizoaffective disorder, bipolar type F25.0 ; History of intravenous drug abuse F19.11 ; Elevated blood pressure reading without diagnosis of hypertension R03.0 ; Refused pneumococcal vaccination Z28.21 and Tobacco abuse Z72.0 IMMUNIZATIONS Vaccine Route Administration Date Status Hepatitis [...] Education Language: Question Answer Notes Languages spoken: Hebrew Sikh: Question Answer Notes Sikh 01 Agnostic Sexual Hx: Question Answer Notes [...] FOR REFERRAL No Information VITAL SIGNS Weight 385 lbs Apr, Height 6'6 in Apr, BMI 52.21 kg/m2 Apr, Heart Rate 98 /min Apr, Respiratory Rate 18 /min Apr, Temperature 97.2 degrees Fahrenheit Apr, Oximetry 97 Apr, Blood pressure systolic 126 mm Hg Apr, Blood pressure diastolic 78 mm Hg Apr, MEDICATIONS Medication SIG (Take, Route, Frequency, Duration) Notes Start Da te End Date Status OLANZapine 10 MG 1 tablet Orally Once a day for 30 day(s) Not-Taking Geodon 20 MG 1 capsule with food Orally Twice a day for 30 day(s) Active PROCEDURES from 1993 to 2020-11-02 Procedure Date Ordered Result Body Site Imm: Havrix Adult 1.0mL IM Hepatitis A 2020-05-13 N/A RESULTS No Results REASON FOR VISIT 3 WEEK FOLLOW UP Lab & Psych/protective services social worker f/u MEDICAL (GENERAL) HISTORY Type Description Date Medical [...] Surgical History bilateral trans-scrotal orchidopexy x2 a 2010 Hospitalization History substance abuse 04/2020 Hospitalization History jainism 01/2020 Hospitalization History jainism 02/2020 Goals Section No Information Health Concerns No Information MEDICAL EQUIPMENT No Information MENTAL STATUS No Information FUNCTIONAL STATUS No Information ASSESSMENTS Encounter Date Diagnosis Assessment Notes Treatment Notes Treatm ent Clinical Notes Apr, Chronic hepatitis C without hepatic coma (ICD-10 - B18.2) Please see above in the HPI for results of recent blood work after initial HCV Ab index was greater than 11. Due to the fact that his HCV RNA amount was 70 and was insufficient to obtain genotyping, there is a potential that patient may have spontaneous resolution of his hep C. We will see the patient back in 1/2 months to repeat and monitor things. Should he not have full spontaneous resolution 6 months from initial positive result, will refer to infectious disease (Dr. Meng) who could initiate treatment with all genotype Epclusa medication (12 weeks). As shown in HPI, HCV fibrosure showed no fibrosis with no to minimal macro inflammation. Of note, ALT (146) and AST (76) were both elevated. We will continue to trend these as well. Liver enzyme elevation likely tied to HCV infection, possible prior drug use (has not used in 5 weeks) and/or other etiology. Due to patient's habitus, right upper quadrant ultrasound may be warranted upon follow-up to assess for steatosis. Apr, Encounter for vaccination (ICD-10 - Z23) Based on recent lab work, patient had a positive HPV surface antibody indicating has been vaccinated for HPV; therefore H AV vaccination was given today. Patient will require second dose beginning in 6 months time (around late October 2020). Patient tolerated vaccine administration today without any issues. Apr, [facility] care (ICD-10 - Z00.00) Blood work indicates previously being vaccinated with HBV vaccine. Received first HAV vaccine today. Follow-up dose will be due in 6 months time. Stop bang sleep apnea screen 3 weeks ago was high risk (3 positives; gender, neck circumference and elevated blood pressure). Will address this further on follow-up in the form of likely nocturnal pulse oximetry. Apr, Schizoaffective disorder, bipolar type (ICD-10 - F25.0) Patient has extensive psychiatric history with multiple previous hospitalizations as detailed in HPI from [facility] appointment earlier this month. He did also report multiple different episodes of cosme in the past. He is not currently manic. Since his last hospitalization in [facility] in February 2020, patient has been taking daily 10 mg olanzapine (Zyprexa). These have been ordered in 7 days. Scripts all from Dr. Rivas. Both the patient and his father report he is tolerating the medication well and it has been helping his mood and temperament significantly. Patient still does not have a consistent outpatient psychiatrist whom he follows with. Since Dr. Riavs saw and evaluated him on most recent hospitalization, and has been prescribing his olanzapine on a weekly basis. Patient still not heard back from the outpatient referral we sent for him to establish with Dr. Rivas. Prior TSH was WNL. Patient was interested at establish care appointment earlier this month to be seen by counselor. He has an appointment in 2 weeks with [facility] (Wayne Veliz). As discussed in HPI, there is a concern as patient has gained over 30 pounds in the last 3 weeks. Olanzapine is known to have a common side effect of weight gain. Patient does report an increase in his appetite, but also he now has a stable living situation and consistent access to food on regular basis of this is factoring in. This is something we will continue to monitor on follow-up Apr, History of intravenous drug abuse (ICD-10 - F19. 11) Due to patient's extensive illicit drug history, including significant IV drug use, both HIV and hepatitis C screens were ordered earlier this month that establish care appointment; HCV was positive and HIV was negative. Patient has not used any IV drugs in the past 5 weeks. He owes this to improved mood and temperament on olanzapine and stable living situation. He has an advocate for [facility] (Zia Hoang; [phone]). Apr, Elevated blood pressure read ing without diagnosis of hypertension (ICD-10 - R03.0) Patient had elevated pressure for second time in his many appointments. Pressures were 126/78 today and 128/80 three weeks ago. Per the ACC/AHA guidelines, this qualifies as an elevated blood pressure. Per review of outpatient record, recent emergency department EKG studies have been relatively unremarkable (consistently sinus rhythm with some nonspecific ST-T wave changes). UA and electrolytes were unremarkable. We discussed with patient the correlation between blood pressure and weight and that the fact he has gained 30+ pounds over the past 3 weeks certainly not helping things. At this point, lifestyle modifications will be our focus. A Dash booklet was provided to the patient. We will continue to monitor his weight and see how things play out with psychiatry. Consideration may be given to switching his atypical antipsychotic should he continue to gain weight on the olanzapine. Will see patient back in 1.5 months time for blood pressure recheck. Apr, Refused pneumococcal vaccination (ICD-10 - Z28.2 1) Refused Pneumovax 23 vaccination again today. He has a positive smoking history in the form of marijuana and cigarettes. Apr, Tobacco abuse (ICD-10 - Z72.0) Patient currently smokes about 1/4-1/2 a pack per day of cigarettes. Due to all of his other psychosocial issues, he is precontemplative at this time in terms of smoking cessation. He wants to get his mood and life stabilized before thinking about cessation. He did refuse Pneumovax 23 vaccination today. PLAN OF TREATMENT Treatment Notes Assessment Notes Clinical Notes Chronic hepatitis C without hepatic coma Please see above in the HPI for results of recent blood work after initial HCV Ab index was greater than 11.Due to the fact that his HCV RNA amount was 70 and was insufficient to obtain genotyping, there is a potential that patient may have spontaneous resolution of his hep C. We will see the patient back in 1/2 months to repeat and monitor things. Should he not have full spontaneous resolution 6 months from initial positive result, will refer to infectious disease (Dr. Meng) who could initiate treatment with all genotype Epclusa medication (12 weeks).As shown in HPI, HCV fibrosure showed no fibrosis with no to minimal macro inflammation. Of note, ALT (146) and AST (76) were both elevated. We will continue to trend these as well. Liver enzyme elevation likely tied to HCV infection, possible prior drug use (has not used in 5 weeks) and/or other etiology. Due to patient's habitus, right upper quadrant ultrasound may be warranted upon follow-up to assess for steatosis. Encounter for vaccination Based on recen t lab work, patient had a positive HPV surface antibody indicating has been vaccinated for HPV; therefore H AV vaccination was given today. Patient will require second dose beginning in 6 months time (around late October 2020). Patient tolerated vaccine administration today without any issues. Preventative health care Blood work marc cates previously being vaccinated with HBV vaccine.Received first HAV vaccine today. Follow-up dose will be due in 6 months time.Stop bang sleep apnea screen 3 weeks ago was high risk (3 positives; gender, neck circumference and elevated blood pressure). Will address this further on follow-up in the form of likely nocturnal pulse oximetry. Schizoaffective disorder, bipolar type P atient has extensive psychiatric history with multiple previous hospitalizations as detailed in HPI from [facility] appointment earlier this month. He did also report multiple different episodes of cosme in the past. He is not currently manic.Since his last hospitalization in [facility] in February 2020, patient has been taking daily 10 mg olanzapine (Zyprexa). These have been ordered in 7 days. Scripts all from Dr. Rivas. Both the patient and his father report he is tolerating the medication well and it has been helping his mood and temperament significantly.Patient still does not have a consistent outpatient psychiatrist whom he follows with. Since Dr. Rivas saw and evaluated him on most recent hospitalization, and has been prescribing his olanzapine on a weekly basis. Patient still not heard back from the outpatient referral we sent for him to establish with Dr. Rivas.Prior TSH was WNL.Patient was interested at [facility] appointment earlier this month to be seen by counselor. He has an appointment in 2 weeks with [facility] (Wayne Veliz).As discussed in HPI, there is a concern as patient has gained over 30 pounds in the last 3 weeks. Olanzapine is known to have a common side effect of weight gain. Patient does report an increase in his appetite, but also he now has a stable living situation and consistent access to food on regular basis of this is factoring in. This is something we will continue to monitor on follow-up History of intravenous drug abuse Due to patient's extensive illicit drug history, including significant IV drug use, both HIV and hepatitis C screens were ordered earlier this month that [facility] appointment; HCV was positive and HIV was negative.Patient has not used any IV drugs in the past 5 weeks. He owes this to improved mood and temperament on olanzapine and stable living situation.He has an advocate for [facility] (Zia Hoang; [phone]). Elevated blood pressure reading without diagnosis of hyperte nsion Patient had elevated pressure for second time in his many appointments. Pressures were 126/78 today and 128/80 three weeks ago. Per the ACC/AHA guidelines, this qualifies as an elevated blood pressure. Per review of outpatient record, recent emergency department EKG studies have been relatively unremarkable (consistently sinus rhythm with some nonspecific ST-T wave changes).UA and electrolytes were u nremarkable.We discussed with patient the correlation between blood pressure and weight and that the fact he has gained 30+ pounds over the past 3 weeks certainly not helping things. At this point, lifestyle modifications will be our focus. A Dash booklet was provided to the patient. We will continue to monitor his weight and see how things play out with psychiatry. Consideration may be given to switching his atypical antipsychotic should he continue to gain weight on the olanzapine.Will see patient back in 1.5 months time for blood pressure recheck. Refused pneumococcal vaccination Refused Pneumovax 23 vaccination again today.He has a positive smoking history in the form of marijuana and cigarettes. Tobacco abuse Patient currently sm okes about 1/4-1/2 a pack per day of cigarettes. Due to all of his other psychosocial issues, he is precontemplative at this time in terms of smoking cessation. He wants to get his mood and life stabilized before thinking about cessation. He did refuse Pneumovax 23 vaccination today. Next Appt Details 6 Weeks (Sat, June 27) Reason:Hep C post- 6MO blood work results Follow Up:6 Weeks (June 27)Hep C post-6MO blood work results Insurance Providers Payer Name Payer Address Payer Phone Insured Name Patient Relati onship to Insured Coverage Start Date Coverage End Date [facility] COMM[facility] [address] [facility] [id number] ANKUSH MCGEE self
--- OUTSIDE RECORDS SUMMARY | 2020-12-21 12:30 | CCD ---
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909 Active confirmed 596741538 Problem BMI 45.0-49.9, adult Z68.42 Active confirmed 161654405 Problem Schizoaffective disorder, bipolar type F25.0 A ctive confirmed 79742970 Problem History of intravenous drug abuse F19.11 Active confirmed 62623906995378464 Problem History of MRSA infection Z86.14 Active confirmed 663749131 ALLERGIES Allergen (clinical drug ingredient) Drug/Non Drug Allergy do cumented on EMR Reaction Allergy Type Onset Date Status enviromental sneezing , itchy watety eyes Non Drug Allergy Active Lactose lactose stomach aches Non Drug Allergy Activ e ENCOUNTERS from 1993 to 2020-09-23 Encounter Location Date Provider Diagnosis [facility] [phone] [place] [address] Sep, Benoit Lolis IMMUNIZATIONS Vaccine Route Administration Date Status Hepatitis [...] Education Language: Question Answer Notes Languages spoken: Lithuanian Sabianist: Question Answer Notes Sabianist 01 Agnostic Sexual Hx: Question Answer Notes [...] REASON FOR REFERRAL No Information VITAL SIGNS No information MEDICATIONS Medication SIG (Take, Route, Frequency, Duration) Notes Start Da te End Date Status OLANZapine 10 MG 1 tablet Orally Once a day for 30 day(s) Not-Taking Geodon 20 MG 1 capsule with food Orally Twice a day for 30 day(s) Active PROCEDURES No Information RESULTS No Results REASON FOR VISIT blood work results MEDICAL (GENERAL) HISTORY Type Description Date Medical [...] Hospitalization History substance abuse 04/2020 Hospitalization History anabaptism 01/2020 Hospitalization History anabaptism 02/2020 Goals Section No Information Health Concerns No Information MEDICAL EQUIPMENT No Information MENTAL STATUS No Information FUNCTIONAL STATUS No Information ASSESSMENTS No Information PLAN OF TREATMENT No Information Insurance Providers Payer Name Payer Address Payer Phone Insured Name Patient Relati onship to Insured Coverage Start Date Coverage End Date [facility] [address] [facility] [id number] ANKUSH MCGEE self
[2020-12-21] MEDS ORDERED: ZIPR60CA11 (12:31)
--- OUTSIDE RECORDS SUMMARY | 2020-12-21 12:31 | CCD ---
Author Author [facility] Organization [facility] Address Unknown Phone Unavailable Care Team Providers Care Biostatistics Manager Name Role Phone SYSTEM IN, NOT IN PROVIDER Unavailable Unavailable Osullivan, R Ed WOOD PATTERNMAKER APPRENTICE Unavailable Unavailable Osullivan, R Ed WOOD PATTERNMAKER APPRENTICE Unavailable Unavailable Osullivan, R Ed WOOD PATTERNMAKER APPRENTICE Unavailable Unavailable Mollison, Disha Blcak MD Unavailable Unavailable Mollison, Disha Black MD Unavailable Unavailable Mollison, Disha Black MD Unavailable Unavailable Mollison, Disha Black MD Unavailable Unavailable Mollison, Disha Black MD Unavailable Unavailable Mollison, Disha Black MD Unavailable Unavailable Mollison, Disha Black MD Unavailable Unavailable Mollison, Disha Black MD Unavailable Unavailable Mollison, Disha Black MD Unavailable Unavailable Mollison, Disha Black MD Unavailable Unavailable Mollison, Disha Black MD Unavailable Unavailable Mollison, Disha Black MD Unavailable Unavailable Mollison, Disha Black MD Unavailable Unavailable Mollison, Disha Black MD Unavailable Unavailable Mollison, Disha Black MD Unavailable Unavailable Mollison, Disha Black MD Unavailable Unavailable Mollison, Disha Black MD Unavailable Unavailable Mollison, Disha Black MD Unavailable Unavailable Mollison, Disha Black MD Unavailable Unavailable Mollison, Disha Black MD Unavailable Unavailable Mollison, Disha Black MD Unavailable Unavailable Mollison, Disha Black MD Unavailable Unavailable Mollison, Disha Black MD Unavailable Unavailable Mollison, Disha Black MD Unavailable Unavailable Mollison, Disha Black MD Unavailable Unavailable Mollison, Disha Black MD Unavailable Unavailable Mollison, Disha Black MD Unavailable Unavailable Mollison, Disha Black MD Unavailable Unavailable Mollison, Disha Black MD Unavailable Unavailable Mollison, Disha Black MD Unavailable Unavailable Cierra Pagan Unavailable TREJO, R ADRIANE WOOD PATTERNMAKER APPRENTICE Unavailable Unavailable TREJO, R ADRIANE WOOD PATTERNMAKER APPRENTICE Unavailable Unavailable TREJO, R ADRIANE WOOD PATTERNMAKER APPRENTICE Unavailable Unavailable TREJO, R ADRIANE WOOD PATTERNMAKER APPRENTICE Unavailable Unavailable TREJO, R ADRIANE WOOD PATTERNMAKER APPRENTICE Unavailable Unavailable TREJO, R ADRIANE WOOD PATTERNMAKER APPRENTICE Unavailable Unavailable TREJO, R ADRIANE WOOD PATTERNMAKER APPRENTICE Unavailable Unavailable TREJO, R ADRIANE WOOD PATTERNMAKER APPRENTICE Unavailable Unavailable TREJO, R ADRIANE WOOD PATTERNMAKER APPRENTICE Unavailable Unavailable TREJO, R ADRIANE WOOD PATTERNMAKER APPRENTICE Unavailable Unavailable TREJO, R ADRIANE WOOD PATTERNMAKER APPRENTICE Unavailable Unavailable TREJO, R ADRIANE WOOD PATTERNMAKER APPRENTICE Unavailable Unavailable TREJO, R ADRIANE WOOD PATTERNMAKER APPRENTICE Unavailable Unavailable TREJO, R ADRIANE WOOD PATTERNMAKER APPRENTICE Unavailable Unavailable TREJO, R ADRIANE WOOD PATTERNMAKER APPRENTICE Unavailable Unavailable TREJO, R ADRIANE WOOD PATTERNMAKER APPRENTICE Unavailable Unavailable TREJO, R ADRIANE WOOD PATTERNMAKER APPRENTICE Unavailable Unavailable TREJO, R ADRIANE WOOD PATTERNMAKER APPRENTICE Unavailable Unavailable TREJO, R ADRIANE WOOD PATTERNMAKER APPRENTICE Unavailable Unavailable TREJO, R ADRIANE WOOD PATTERNMAKER APPRENTICE Unavailable Unavailable TREJO, R ADRIANE WOOD PATTERNMAKER APPRENTICE Unavailable Unavailable TREJO, R ADRIANE WOOD PATTERNMAKER APPRENTICE Unavailable Unavailable TREJO, R ADRIANE WOOD PATTERNMAKER APPRENTICE Unavailable Unavailable TREJO, R ADRIANE WOOD PATTERNMAKER APPRENTICE Unavailable Unavailable TREJO, R ADRIANE WOOD PATTERNMAKER APPRENTICE Unavailable Unavailable TREJO, R ADRIANE WOOD PATTERNMAKER APPRENTICE Unavailable Unavailable TREJO, R ADRIANE WOOD PATTERNMAKER APPRENTICE Unavailable Unavailable TREJO, R ADRIANE WOOD PATTERNMAKER APPRENTICE Unavailable Unavailable TREJO, R ADRIANE WOOD PATTERNMAKER APPRENTICE Unavailable Unavailable TREJO, R ADRIANE WOOD PATTERNMAKER APPRENTICE Unavailable Unavailable TREJO, R ADRIANE WOOD PATTERNMAKER APPRENTICE Unavailable Unavailable TREJO, R ADRIANE WOOD PATTERNMAKER APPRENTICE Unavailable Unavailable TREJO, R ADRIANE WOOD PATTERNMAKER APPRENTICE Unavailable Unavailable TREJO, R ADRIANE WOOD PATTERNMAKER APPRENTICE Unavailable Unavailable TREJO, R ADRIANE WOOD PATTERNMAKER APPRENTICE Unavailable Unavailable TREJO, R ADRIANE WOOD PATTERNMAKER APPRENTICE Unavailable Unavailable TREJO, R ADRIANE WOOD PATTERNMAKER APPRENTICE Unavailable Unavailable TREJO, R ADRIANE WOOD PATTERNMAKER APPRENTICE Unavailable Unavailable TREJO, R ADRIANE WOOD PATTERNMAKER APPRENTICE Unavailable Unavailable TREJO, R ADRIANE WOOD PATTERNMAKER APPRENTICE Unavailable Unavailable TREJO, R ADRIANE WOOD PATTERNMAKER APPRENTICE Unavailable Unavailable TREJO, R ADRIANE WOOD PATTERNMAKER APPRENTICE Unavailable Unavailable TREJO, R ADRIANE WOOD PATTERNMAKER APPRENTICE Unavailable Unavailable TREJO, R ADRIANE WOOD PATTERNMAKER APPRENTICE Unavailable Unavailable Khadijah Amaya Unavailable NITA, Cora BULLARD MD Unavailable Unavailable [...] Unavailable NITA, Cora BULLARD MD Unavailable Unavailable Rebecca TREVIZO MD Unavailable [...] Unavailable Unavailable Rebecca TREVIZO MD Unavailable Unavailable Rebceca TREVIZO MD Unavailable Unavailable Rebecca TREVIZO MD Unavailable Unavailable Rebecca TREVIZO MD Unavailable Unavailable Rebecca TRVEIZO MD Unavailable Unavailable Rebecca TREVIZO MD Unavailable [...] Unavailable Unavailable Rebecca TREVIZO MD Unavailable Unavailable NON-STAFF, PHYSICIAN Unavailable Unavailable Fish, B Georgi FERNANDEZ Unavailable Unavailable Fish, Ronaldo Laureano MD Unavailable Unavailable Fish, Ronaldo Laureano MD Unavailable Unavailable Fish, B Georgi FERNANDEZ Unavailable Unavailable Fish, B Georgi FERNANDEZ Unavailable Unavailable Fish, B Georgi FERNANDEZ Unavailable Unavailable Fish, B Georgi FERNANDEZ Unavailable Unavailable Fish, B Georgi FERNANDEZ Unavailable Unavailable Fish, B Georgi FERNANDEZ Unavailable Unavailable Fish, B Georgi FERNANDEZ Unavailable Unavailable Fish, B Georgi FERNANDEZ Unavailable Unavailable Fish, B Georgi FERNANDEZ Unavailable Unavailable Fish, B Georgi FERNANDEZ Unavailable Unavailable Fish, B Georgi FERNANDEZ Unavailable Unavailable Fish, B Georgi FERNANDEZ Unavailable Unavailable Fish, B Georgi FERNANDEZ Unavailable Unavailable Fish, B Georgi FERNANDEZ Unavailable Unavailable Fish, B Georgi FERNANDEZ Unavailable Unavailable Fish, B Georgi FERNANDEZ Unavailable Unavailable Fish, B Georgi FERNANDEZ Unavailable Unavailable Fish, B Georgi FERNANDEZ Unavailable Unavailable Fish, B Georgi FERNANDEZ Unavailable Unavailable Fish, B Georgi FERNANDEZ Unavailable Unavailable Fish, B Georgi FERNANDEZ Unavailable Unavailable Fish, B Georgi FERNANDEZ Unavailable Unavailable Fish, B Georgi FERNANDEZ Unavailable Unavailable Fish, B Georgi FERNANDEZ Unavailable Unavailable Fish, B Georgi FERNANDEZ Unavailable Unavailable Fish, B Georgi FERNANDEZ Unavailable Unavailable Fish, B Georgi FERNANDEZ Unavailable Unavailable Fish, B Georgi FERNANDEZ Unavailable Unavailable Fish, B Georgi FERNANDEZ Unavailable Unavailable Fish, B Georgi FERNANDEZ Unavailable Unavailable Fish, B Georgi FERNANDEZ Unavailable Unavailable Fish, B Georgi FERNANDEZ Unavailable Unavailable Fish, B Georgi FERNANDEZ Unavailable Unavailable Fish, B Georgi FERNANDEZ Unavailable Unavailable Fish, B Georgi FERNANDEZ Unavailable Unavailable Fish, B Georgi FERNANDEZ Unavailable Unavailable Fish, B Georgi FERNANDEZ Unavailable Unavailable Fish, B Georgi FERNANDEZ Unavailable Unavailable Fish, B Georgi FERNANDEZ Unavailable Unavailable Fish, B Georgi FERNANDEZ Unavailable Unavailable Fish, B Georgi FERNANDEZ Unavailable Unavailable Fish, B Georgi FERNANDEZ Unavailable Unavailable Fish, B Georgi FERNANDEZ Unavailable Unavailable Fish, B Georgi FERNANDEZ Unavailable Unavailable Fish, B Georgi FERNANDEZ Unavailable Unavailable Fish, B Georgi FERNANDEZ Unavailable Unavailable Fish, B Georgi FERNANDEZ Unavailable Unavailable Fish, B Georgi FERNANDEZ Unavailable Unavailable Fish, B Georgi FERNANDEZ Unavailable Unavailable Fish, B Georgi FERNANDEZ Unavailable Unavailable Fish, B Georgi FERNANDEZ Unavailable Unavailable Fish, B Georgi FERNANDEZ Unavailable Unavailable Fish, B Georgi FERNANDEZ Unavailable Unavailable Sterlingelias Cheyenne Unavailable [phone] ELIZABETH WRIGHT MD Unavailable Unavailable ELIZABETH WRIGHT MD Unavailable Unavailable ELIZABETH WRIGHT MD Unavailable Unavailable ELIZABETH WRIGHT MD Unavailable Unavailable ELIZABETH WRIGHT MD Unavailable Unavailable ELIZABETH WRIGHT MD Unavailable Unavailable ELIZABETH WRIGHT MD Unavailable Unavailable ELIZABETH WRIGHT MD Unavailable Unavailable Silverio SANABRIA MD Unavailable Unavailable Silverio SANABRIA MD Unavailable Unavailable Silverio SANABRIA MD Unavailable Unavailable Silverio SANABRIA MD Unavailable Unavailable Silverio SANABRIA MD Unavailable Unavailable Silverio SANABRIA MD Unavailable Unavailable Silverio SANABRIA MD Unavailable Unavailable Silverio SANABRIA MD Unavailable Unavailable Silverio SANABRIA MD Unavailable Unavailable Silverio SANABRIA MD Unavailable Unavailable Silverio SANABRIA MD Unavailable Unavailable Silverio SANABRIA MD Unavailable Unavailable Silverio SANABRIA MD Unavailable Unavailable Silverio SANABRIA MD Unavailable Unavailable Silverio SANABRIA MD Unavailable Unavailable Silverio SANABRIA MD Unavailable Unavailable Silverio SANABRIA MD Unavailable Unavailable Silverio SANABRIA MD Unavailable Unavailable Silverio SANABRIA MD Unavailable Unavailable Silverio SANABRIA MD Unavailable Unavailable Silverio SANABRIA MD Unavailable Unavailable Silverio SANABRIA MD Unavailable Unavailable Silverio SANABRIA MD Unavailable Unavailable Silverio SANABRIA MD Unavailable Unavailable MCKEON, G EDWARD RPA Unavailable Unavailable MCKEON, G EDWARD RPA Unavailable Unavailable MCKEON, G EDWARD RPA Unavailable Unavailable MCKEON, G EDWARD RPA Unavailable Unavailable MCKEON, G EDWARD RPA Unavailable Unavailable MCKEON, G EDWARD RPA Unavailable Unavailable MCKEON, G EDWARD RPA Unavailable Unavailable MCKEON, G EDWARD RPA Unavailable Unavailable MCKEON, G EDWARD RPA Unavailable Unavailable MCKEON, G EDWARD RPA Unavailable Unavailable MCKEON, G EDWARD RPA Unavailable Unavailable MCKEON, G EDWARD RPA Unavailable Unavailable MCKEON, G EDWARD RPA Unavailable Unavailable MCKEON, G EDWARD RPA Unavailable Unavailable MCKEON, G EDWARD RPA Unavailable Unavailable MCKEON, G EDWARD RPA Unavailable Unavailable MCKEON, G EDWARD RPA Unavailable Unavailable MCKEON, G EDWARD RPA Unavailable Unavailable MCKEON, G EDWARD RPA Unavailable Unavailable MCKEON, G EDWARD RPA Unavailable Unavailable MCKEON, G EDWARD RPA Unavailable Unavailable MCKEON, G EDWARD RPA Unavailable Unavailable MCKEON, G EDWARD RPA Unavailable Unavailable MCKEON, G EDWARD RPA Unavailable Unavailable MCKEON, G EDWARD RPA Unavailable Unavailable MCKEON, G EDWARD RPA Unavailable Unavailable MCKEON, G EDWARD RPA Unavailable Unavailable MCKEON, G EDWARD RPA Unavailable Unavailable MCKEON, G EDWARD RPA Unavailable Unavailable MCKEON, G EDWARD RPA Unavailable Unavailable MCKEON, G EDWARD RPA Unavailable Unavailable MCKEON, G EDWARD RPA Unavailable Unavailable MCKEON, G EDWARD RPA Unavailable Unavailable MCKEON, G EDWARD RPA Unavailable Unavailable MCKEON, G EDWARD RPA Unavailable Unavailable MCKEON, G EDWARD RPA Unavailable Unavailable MCKEON, G EDWARD RPA Unavailable Unavailable Kermit Blood Unavailable [phone] Kermit Blood Unavailable [phone] Feliciano Bloodon Unavailable [phone] Larryhaw, Kermit Unavailable [phone] Robertshaw, Kermit Unavailable [phone] Robertshaw, Kermit Unavailable [phone] SYSTEM, NOT IN PROVIDER Unavailable Unavailable Earl Hwang Unavailable Unavailable Silverio EMERY MD Unavailable Unavailable Silverio EMERY MD Unavailable Unavailable Silverio EMERY MD Unavailable Unavailable Silverio EMERY MD Unavailable Unavailable Silverio EMERY MD Unavailable Unavailable Silverio EMERY MD Unavailable Unavailable Silverio EMERY MD Unavailable Unavailable Silverio EMERY MD Unavailable Unavailable Silverio EMERY MD Unavailable Unavailable Silverio EMERY MD Unavailable Unavailable Silverio EMERY MD Unavailable Unavailable Re-disclosure Warning The records [...] is protected by Article 27-F of the [facility] Public Health law. If you continue you may have access to information: Regarding HIV / AIDS; Provided by facilities licensed or operated by the [facility] Office of Mental Health; or Provided by the [facility] Office for People With Developmental Disabilities. If such information is present, then the following [facility] mandated warning applies: This information has [...] law may result in a fine or assisted sentence or both. A general authorization for the release of medical or other information is NOT sufficient authorization for further disc losure. Allergies and Adverse Reactions Type Description Substance Reaction Status Data Source(s ) Propensity to adverse reactions NO KNOWN ALLERGIES NO KNOWN ALLERGIES [facility] No Known Drug Allergies No Known Drug Allergies [facility] Allergy to substance Allergy to substance Allergy to substance [place] ([facility]) Family History Family Member Name Family Member Gender Family Member Status Date o f Status Description Data Source(s) Unknown Unknown Problem [facility] ([facility]) Encounters Encounter Providers Location Date Indications Data Source(s ) [facility] 12/20/2020 12:00:00 AM EDT [facility] ([facility]) [facility]billable [facility] 11/18/2020 12:00:00 AM EDT [facility] ([facility]) [facility]billable [facility] 10/19/2020 12:00:00 AM EDT [facility] ([facility]) [place] [address] [facility] [address] 09/22/2020 12:00:00 AM EDT eC1 ([facility]) [facility]-billable [facility] 09/19/2020 12:00:00 AM EDT [facility] ([facility]) Brief Individual Psychotherapy - 30 min Attender: Cierra mosley [facility] 09/01/2020 01:45:00 AM EDT - 09/01/2020 01:45:00 AM EDT [facility] ([facility]) Attender: Cierra Pagan 09/01/2020 12:00:00 AM EDT [facility] ([facility]) [facility]billable [facility] 08/19/2020 12:00:00 AM EDT [facility] ([facility]) Outpatient Attender: Ed Osullivan NP [facility] 08/09/2020 01:00:00 AM EDT - 08/09/2020 01:00:00 AM EDT [facility] ([facility]) Attender: Ed Osullivan NP 08/09/2020 12:00:00 AM EDT [facility] ([facility]) Outpatient Attender: Ed Osullivan NP [facility] 08/03/2020 01:30:00 AM EDT - 08/03/2020 01:30:00 AM EDT [facility] ([facility]) Attender: Ed Osullivan NP 08/03/2020 12:00:00 AM EDT [facility] ([facility]) Unknown [address] [facility] [address] 08/02/2020 12:00:00 AM EDT eCW1 ([facility]) Brief Individual Psychotherapy - 30 min Attender: Cierra mosley [facility] 07/28/2020 02:30:00 AM EDT - 07/28/2020 02:30:00 AM EDT [facility] ([facility]) Attender: Cierra Pagan 07/28/2020 12:00:00 AM EDT [facility] ([facility]) Outpatient Attender: KRISTA MCKEON RPA 07/19 01:19:27 PM EDT - 07/19/2020 02:02:46 PM EDT [facility] ([facility] ) [facility] 07/19/2020 12:00:00 AM EDT [facility] ([facility]) Outpatient Attender: Ed Osullivan NP [facility] 07/01/2020 03:00:00 AM EDT - 07/01/2020 03:00:00 AM EDT [facility] ([facility]) Attender: Ed Osullivan NP 07/01/2020 12:00:00 AM EDT [facility] ([facility]) Brief Individual Psychotherapy - 30 min Attender: Cierra mosley [facility] 06/30/2020 02:30:00 AM EDT - 06/30/2020 02:30:00 AM EDT [facility] ([facility]) Attender: Cierra Pagan 06/30/2020 12:00:00 AM EDT [facility] ([facility]) Outpatient [address] [facility] [place] [address] 06/27/2020 12:00:00 AM EDT eCW1 ([facility]) Extended Individual Psychotherapy - 45 min Attender: Vicki Pagan [facility] 06/16/2020 10:45:00 AM EDT - 06/16/2020 10:45:00 AM EDT [facility] ([facility]) Attender: Cierra Pagan 06/16/2020 12:00:00 AM EDT [facility] ([facility]) Outpatient Attender: Kermit Blood 06/13 07:19:06 PM EDT - 06/13/2020 07:33:35 PM EDT [facility] ([facility] ) Outpatient Att[facility]: [facility] 06/10/2020 09:30:00 AM EDT - 06/10/2020 09:30:00 AM EDT [facility] ([facility]) Attender: Ed Osullivan NP 06/10/2020 12:00:00 AM EDT [facility] ([facility]) Telemed Diagnostic Eval Attender: Ed Osullivan NP [facility] 06/03/2020 02:00:00 AM EDT - 06/03/2020 02:00:00 AM EDT [facility] ([facility]) Attender: Ed Osullivan NP 06/03/2020 12:00:00 AM EDT [facility] ([facility]) (BHVHLTH) [facility] Scheduled Visit [address] [place] [address] 05/24/2020 12:00:00 AM EDT eCW1 ([facility]) Outpatient [address] [facility], [facility] [address] 05/13/2020 12:00:00 AM EDT eCW1 ([facility]) Unknown [address] [facility] [address] 05/11/2020 12:00:00 AM EDT eCW1 ([facility]) Brief Individual Psychotherapy - 30 min Attender: Khadijah garcia [facility] 05/09/2020 10:30:00 AM EDT - 05/09/2020 10:30:00 AM EDT [facility] ([facility]) Attender: Khadijah Amaya 05/09/2020 12:00:00 A M EDT [facility] ([facility]) Outpatient Attender: HANG SANABRIA MD 05/06 12:09:17 PM EDT - 05/06/2020 12:51:55 PM EDT [facility] ([facility] ) [place] [address] [facility] [address] 05/04/2020 12:00:00 AM EDT eCW1 ([facility]) Outpatient [address] [facility] [address] 04/21/2020 12:00:00 AM EST eCW1 ([facility]) Emergency ES1-ES1 04/20/2020 01:49:00 PM EST - 021 06:09:00 PM EST [facility] Patient discharged. Unlisted evaluation and management service Performer: Hong salinas 04/19/2020 03:11:00 PM EST - 04/20/2020 05:20:00 PM EST [facility] ([facility]) Unlisted evaluation and management service 04/12/2020 05:43:00 PM EST - 04/19/2020 03:07:00 PM EST [facility] ([facility]) Emergency Attender: СЕРГЕЙ EMERY MDConsultant: DIONNE CAREY NON-STAFF 04/11/2020 12:11:00 AM EST - 04/11/2020 02:42:00 AM EST [facility] Patient discharged. Extended Individual Psychotherapy - 45 min Attender: Vicki Pagan [facility] 03/31/2020 10:30:00 AM EST - 03/31/2020 10:30:00 AM EST [facility] ([facility]) Attender: Cierra Pagan 03/31/2020 12:00:00 AM EST [facility] ([facility]) Telemed Diagnostic Eval Attender: Ed Osullivan NP [facility] 03/30/2020 11:00:00 AM EST - 03/30/2020 11:00:00 AM EST [facility] ([facility]) Outpatient Attender: ADRIANE TREJO NPReferrer: Georgi ma MD [id number] 03/30/2020 12:00:00 AM EST Pain in left hand [facility] Pain in left hand Outpatient Referrer: ADRIANE TREJO WOOD PATTERNMAKER APPRENTICE 03/30/2020 1 2:00:00 AM EST Pain in left hand [facility] Pain in left hand Outpatient Referrer: ADRIANE TREJO WOOD PATTERNMAKER APPRENTICE 03/30/2020 1 2:00:00 AM EST Pain in left hand [facility] Pain in left hand Attender: Ed Osullivan NP 03/30/2020 12:00:00 AM EST [facility] ([facility]) Outpatient Attender: Wayne Malhotra/Louis/Franco/Re indl 03/24/2020 08:45:00 AM EST [facility] ([facility] Extended Individual Psychotherapy - 45 min Attender: Vicki Pagan [facility] 03/14/2020 12:00:00 PM EST - 03/14/2020 12:00:00 PM EST [facility] ([facility]) Attender: Cierra Pagan 03/14/2020 12:00:00 AM EST [facility] ([facility]) Cheyenne Yang, [facility]: [address] [place] [id number], Ph. Attender: Cheyenne Yang [facility] 03/10/2020 12:00:00 AM EST [place] ([facility]) Extended Individual Psychotherapy - 45 min Attender: Vicik Pagan [facility] 03/09/2020 10:30:00 AM EST - 03/09/2020 10:30:00 AM EST [facility] ([facility]) Attender: Cierra Pagan 03/09/2020 12:00:00 AM EST [facility] ([facility]) Outpatient Attender: ADRIANE TREJO NP 02/26/2020 12:00:0 0 AM EST [facility] [id number]"Psychotherapy [facility] 02/22/[facility] 03:00:00 AM EST - 02/22/2020 03:00:00 AM EST [facility] ([facility]) Attender: Cierra Pagan 02/22/2020 12:00:00 AM EST [facility] ([facility]) Outpatient Attender: TYRONE TREVIZO MD 02/22/2020 12:00:00 A M EST [facility] Outpatient Referrer: PROVIDER SYSTEM IN [address] [place] [address] 02/16/2020 1 1:53:00 AM EST left hand lac with cellulitis and lymphangitis with extensor tendon injury [facility] left hand lac with cellulitis and lympha ngitis with extensor tendon injury Psychiatric Diagnostic Evaluation with Medical Service s Attender: Ed Osullivan NP [facility] 02/16/2020 02:00:00 AM EST - 02/16/2020 02:00:00 AM EST [facility] ([facility]) Attender: Ed Osullivan NP 02/16/2020 12:00:00 AM EST [facility] ([facility]) [id number]"Psychotherapy Attender: Cierra Pagan [facility] 02/08/2020 02:00:00 AM EST - 02/08/2020 02:00:00 AM EST [facility] ([facility]) Attender: Cierra Pagan 02/08/2020 12:00:00 AM EST [facility] ([facility]) Psychiatric Diagnostic Evaluation (Non-Medical) Attender: Afia Pagan [facility] 02/05/2020 09:00:00 AM EST - 02/05/2020 09:00:00 AM EST [facility] ([facility]) Attender: Cierra Pagan 02/05/2020 12:00:00 AM EST [facility] ([facility]) Psychiatric Diagnostic Evaluation (Non-Medical) Attender: Afia Pagan [facility] 02/01/2020 01:00:00 AM EST - 02/01/2020 01:00:00 AM EST [facility] ([facility]) Attender: Cierra Pagan 02/01/2020 12:00:00 AM EST [facility] ([facility]) Psychiatric Diagnostic Evaluation (Non-Medical) Attender: Afia Pagan [facility] 01/25/2020 01:00:00 AM EST - 01/25/2020 01:00:00 AM EST [facility] ([facility]) Attender: Cierra Pagan 01/25/2020 12:00:00 AM EST [facility] ([facility]) Outpatient Referrer: PROVIDER SYSTEM [id number] 01/15/2020 08:3 0:00 AM EST unspecified psychosis [facility] unspecified psychosis Inpatient Attender: ELIZABETH Mata nder: JUAN MIGUEL MOYA MDAdmitter: JUAN MIGUEL MOYA MDReferrer: JUAN MIGUEL MOYA MD [id number] 11/26/2019 12:00:00 AM EDT - 12/02/2019 10:14:00 AM EDT psychosis [facility] psychosis Patient discharged. Functional Status Immunizations Vaccine Date Status Description Data Source(s) COVID-19 VACCINE Moderna 11/03/2020 12:00:00 AM EDT completed [facility] Vaccine Series Complete: NOThis Data was Submitted to [facility] Via [employer]. As of October 1998, a 2-dose hepatitis B schedule for adolescents (11-15 year olds) was FDA approved for Merck's Recombivax HB adult formulation. Use code 43 for the 2-dose. This code should be used for any use of standard adult formulation of hepatitis B vaccine. 09/20/2020 12:37:00 PM EDT completed eCW1 ([facility]) As of October 1998, a 2-dose hepatitis B schedule for adolescents (11-15 year olds) was FDA approved for Merck's Recombivax HB adult formulation. Use code 43 for the 2-dose. This code should be used for any use of standard adult formulation of hepatitis B vaccine. 09/20/2020 12:37:00 PM EDT completed eCW1 ([facility]) As of October 1998, a 2-dose hepatitis B schedule for adolescents (11-15 year olds) was FDA approved for Merck's Recombivax HB adult formulation. Use code 43 for the 2-dose. This code should be used for any use of standard adult formulation of hepatitis B vaccine. 09/20/2020 12:37:00 PM EDT completed eCW1 ([facility]) Hep A, adult 05/13/2020 08:45:00 AM EDT completed e CW1 ([facility]) Hep A, adult 05/13/2020 08:45:00 AM EDT completed e CW1 ([facility]) Hep A, adult 05/13/2020 08:45:00 AM EDT completed e CW1 ([facility]) Hep A, adult 05/13/2020 08:45:00 AM EDT completed e CW1 ([facility]) Hep A, adult 05/13/2020 08:45:00 AM EDT completed e CW1 ([facility]) Medications Medication Brand Name Start Date Product Form Dose Route Admi nistrative Instructions Pharmacy Instructions Status Indications Reaction Description Data Source(s) ziprasidone 60 MG Oral Capsule ziprasidone HCl 08/24/2020 12:00:00 AM EDT 60 mg completed <td ID="Me dicationRxNorm_1">593413</td><td ID="MedicationMedication_1">ziprasidone HCl</td><td ID="MedicationRoute_1"></td><td ID="MedicationRouteConcept_1"></td><td ID="MedicationStartDate_1">08/24/2020</td><td ID="MedicationStopDate_1"></td><td ID="MedicationDosageFrequency_1"></td><td ID="MedicationDuration_1">30</td><td ID="MedicationFormulaStrength_1">60 mg</td><td ID="MedicationDosageForm_1">capsule</td><td ID="MedicationDosageFormCode_1"></td><td ID="MedicationDosageDescription_1"></td><td ID="MedicationMedicationId_1">[id number]</td><td ID="MedicationAccount_1">[id number]</td><td ID="MedicationNpid_1">[id number]</td><td ID="MedicationAuthorFirstName_1">Ed</td><td ID="MedicationAuthorLastName_1">Osullivan</td><td ID="MedicationTaxonomyCode_1">[id number]</td><td ID="MedicationTaxonomyDesc_1">Nurse Practitioner</td><td ID="MedicationPhoneNumber_1">[phone]</td> [facility] ([facility]) 4 mg 08/02/2020 12:00:00 AM EDT tablets,dose pack 21 TAKE BY MOUTH DIRECTED TAKE BY MOUTH DIRECTED SOLD: 08/02/2020 [facility] 0.12 % 08/02/2020 12:00:00 AM EDT mouthwash 473 RINSE MOUTH WITH 15MLS (1 CAPFUL) FOR 30 SECONDS IN THE MORNING AND IN THE EVENING AFTER TOOTHBRUSHING. SPIT OUT AFTER RINSING. DO NOT SWALLOW. RINSE MOUTH WITH 15MLS (1 CAPFUL) FOR 30 SECONDS IN THE MORNING AND IN THE EVENING AFTER TOOTHBRUSHING. SPIT OUT AFTER RINSING. DO NOT SWALLOW. SOLD: 08/02/2020 [facility] 600 mg 08/02/2020 12:00:00 AM EDT tablet 20 TAKE ONE TABLET BY MOUTH EVERY 6 HOURS NEEDED TAKE ONE TABLET BY MOUTH EVERY 6 HOURS NEEDED SOLD: 08/02/2020 [facility] ziprasidone 60 MG Oral Capsule ziprasidone HCl 06/10/2020 12:00:00 AM EDT 60 mg by mouth completed <td ID="Me dicationRxNorm_1">178055</td><td ID="MedicationMedication_1">ziprasidone HCl</td><td ID="MedicationRoute_1">by mouth</td><td ID="MedicationRouteConcept_1">F16592</td><td ID="MedicationStartDate_1">06/10/2020</td><td ID="MedicationStopDate_1">08/09/2020</td><td ID="MedicationDosageFrequency_1">twice a day</td><td ID="MedicationDuration_1">30</td><td ID="MedicationFormulaStrength_1">60 mg</td><td ID="MedicationDosageForm_1">capsule</td><td ID="MedicationDosageFormCode_1"></td><td ID="MedicationDosageDescription_1">with meals</td><td ID="MedicationMedicationId_1">[id number]</td><td ID="MedicationAccount_1">[id number]</td><td ID="MedicationNpid_1">[id number]</td><td ID="MedicationAuthorFirstName_1">Ed</td><td ID="MedicationAuthorLastName_1">Osullivna</td><td ID="MedicationTaxonomyCode_1">[id number]</td><td ID="MedicationTaxonomyDesc_1">Nurse Practitioner</td><td ID="MedicationPhoneNumber_1">[phone]</td> [facility] ([facility]) ziprasidone 40 MG Oral Capsule ziprasidone HCl 06/10/2020 12:00:00 AM EDT 40 mg by mouth completed <td ID="Me dicationRxNorm_3">802610</td><td ID="MedicationMedication_3">ziprasidone HCl</td><td ID="MedicationRoute_3">by mouth</td><td ID="MedicationRouteConcept_3">K21149</td><td ID="MedicationStartDate_3">06/10/2020</td><td ID="MedicationStopDate_3">08/09/2020</td><td ID="MedicationDosageFrequency_3">twice a day</td><td ID="MedicationDuration_3">30</td><td ID="MedicationFormulaStrength_3">40 mg</td><td ID="MedicationDosageForm_3">capsule</td><td ID="MedicationDosageFormCode_3"></td><td ID="MedicationDosageDescription_3">with meals</td><td ID="MedicationMedicationId_3">[id number]</td><td ID="MedicationAccount_3">[id number]</td><td ID="MedicationNpid_3">[id number]</td><td ID="MedicationAuthorFirstName_3">Ed</td><td ID="MedicationAuthorLastName_3">Osullivan</td><td ID="MedicationTaxonomyCode_3">[id number]</td><td ID="MedicationTaxonomyDesc_3">Nurse Practitioner</td><td ID="MedicationPhoneNumber_3">[phone]</td> [facility] ([facility]) Trazodone Hydrochloride 100 MG Oral Tablet trazodone 06/10 12:00:00 AM EDT 100 mg completed <td ID="Medica tionRxNorm_2">760719</td><td ID="MedicationMedication_2">trazodone</td><td ID="MedicationRoute_2"></td><td ID="MedicationRouteConcept_2"></td><td ID="MedicationStartDate_2">06/10/2020</td><td ID="MedicationStopDate_2">07/10/2020</td><td ID="MedicationDosageFrequency_2"></td><td ID="MedicationDuration_2">30</td><td ID="MedicationFormulaStrength_2">100 mg</td><td ID="MedicationDosageForm_2">tablet</td><td ID="MedicationDosageFormCode_2"></td><td ID="MedicationDosageDescription_2"></td><td ID="MedicationMedicationId_2">[id number]</td><td ID="MedicationAccount_2">[id number]</td><td ID="MedicationNpid_2">[id number]</td><td ID="MedicationAuthorFirstName_2">Ed</td><td ID="MedicationAuthorLastName_2">Osullivan</td><td ID="MedicationTaxonomyCode_2">[id number]</td><td ID="MedicationTaxonomyDesc_2">Nurse Practitioner</td><td ID="MedicationPhoneNumber_2">[phone]</td> [facility] ([facility]) olanzapine 5 MG Oral Tablet olanzapine 05/12/2020 12:00:00 AM EDT 5 mg by mouth completed <td ID="Medica tionRxNorm_1">139733</td><td ID="MedicationMedication_1">olanzapine</td><td ID="MedicationRoute_1">by mouth</td><td ID="MedicationRouteConcept_1">Z23962</td><td ID="MedicationStartDate_1">05/12/2020</td><td ID="MedicationStopDate_1"></td><td ID="MedicationDosageFrequency_1">once a day</td><td ID="MedicationDuration_1">30</td><td ID="MedicationFormulaStrength_1">5 mg</td><td ID="MedicationDosageForm_1">tablet</td><td ID="MedicationDosageFormCode_1"></td><td ID="MedicationDosageDescription_1"></td><td ID="MedicationMedicationId_1">[id number]</td><td ID="MedicationAccount_1">[id number]</td><td ID="MedicationNpid_1">[id number]</td><td ID="MedicationAuthorFirstName_1">Ed</td><td ID="MedicationAuthorLastName_1">Osullivan</td><td ID="MedicationTaxonomyCode_1">[id number]</td><td ID="MedicationTaxonomyDesc_1">Nurse Practitioner</td><td ID="MedicationPhoneNumber_1">[phone]</td> [facility] ([facility]) olanzapine 10 MG Oral Tablet OLANZAPINE 05/09/2020 12:00:00 AM EDT tab let 30 TAKE ONE TABLET BY MOUTH EVERY DAY TAKE ONE TABLET BY MOUTH EVERY DAY SOLD: 05/09/2020 [facility] 10 mg 03/05/2020 12:00:00 AM EST tablet 7 TAKE ONE TABLET BY MOUTH EVERY DAY TAKE ONE TABLET BY MOUTH EVERY DAY SOLD: 03/05/2020 [facility] Nicotine 4 MG/ACTUAT Inhalant Solution N icotine 10 MG Inhalation Inhaler (NICOTROL) Nicotine 10 MG Inhalation Inhaler (NICOTROL) 0 12:00:00 AM EDT 1 {puff} Inhalation active Inha le 1 puff into the lungs every hour as needed for Smoking cessation (Craving; MDD 12) [facility] benztropine mesylate 0.5 MG Oral Tablet Benztropine Mesylate 0.5 MG Oral Tablet (COGENTIN) Benztropine Mesylate 0.5 MG Oral Tablet (COGENTIN) 12:00:00 AM EDT 0.5 mg Oral active Take 1 t ablet by mouth daily [facility] Melatonin 5 MG Oral Tablet Melatonin 5 MG Oral Tablet 2019 12:00:00 AM EDT 5 mg Oral active Take 1 tablet by mouth nightly [facility] olanzapine 5 MG Disintegrating Oral Tabl et OLANZapine 5 MG Oral Tablet Disintegrating (ZYPREXA) OLANZapine 5 MG Oral Tablet Disintegrating (ZYPREXA) 12/02/2019 12:00:00 AM EDT 5 mg Oral active Take 1 tablet by mouth nightly [facility] Cholecalciferol 1000 UNT Oral Tablet Vit forbes D3 25 MCG (1000 UT) Oral Tablet (CHOLECALCIFEROL) Vitamin D3 25 MCG (1000 UT) Oral Tablet (CHOLECALCIFER OL) 12/02/2019 12:00:00 AM EDT 1000 U Oral active Take 1 tablet by mouth daily [facility] Cholecalciferol 1000 UNT Oral Tablet vit forbes D3 (CHOLECALCIFEROL) tablet 1,000 Units vitamin D3 (CHOLECALCIFEROL) tablet 1,000 Units 2019 12:15:00 PM EDT 1000 U Oral active 1,000 Un its, Oral, Daily Standard, First dose on Sat12/01/19 at 1215, For 30 days
25 mcg vitamin D3 = 1,000 international units vitamin D3.
[facility] Medication administered onsite Melatonin 5 MG Oral Tablet melatonin tablet 5 mg melatonin t ablet 5 mg 11/30/2019 10:00:00 PM EDT 5 mg Oral active 5 mg, Oral, Nightly, First dose on 11/30/19 at 2200, For 30 days [facility] Medication administered onsite benztropine mesylate 1 MG Oral Tablet benztropine (COG ENTIN) tablet 0.5 mg benztropine (COGENTIN) tablet 0.5 mg 11/29/2019 08:00:00 PM EDT 0.5 m g Oral active 0.5 mg, Oral, Da jenni Standard, First dose on 11/29/19 at 2000, For 30 days [facility] Medication administered onsite olanzapine 5 MG Disintegrating Oral Tabl et OLANZapine zydis (ZYPREXA) disintegrating tablet 5 mg OLANZapine zydis (ZYPREXA) disintegratin g tablet 5 mg 11/26/2019 10:00:00 PM EDT 5 mg Oral active 5 mg, Oral, Nightly, First dose on Jeannie 11/26/19 at 2200, For 30 days [facility] Medication administered onsite olanzapine 5 MG Disintegrating Oral Tabl et OLANZapine zydis (ZYPREXA) disintegrating tablet 5 mg OLANZapine zydis (ZYPREXA) disintegratin g tablet 5 mg 11/26/2019 02:45:37 PM EDT 5 mg Oral active 5 mg, Oral, Every 6 hours PRN, agitation, psychosis, Starting [facility] 10/8/20 at 1445, For 30 days [facility] Medication administered onsite Trazodone Hydrochloride 100 MG Oral Tablet trazodone ( DESYREL) tablet 100 mg trazodone (DESYREL) tablet 100 mg 11/26/2019 02:45:21 AM EDT 100 mg Oral active 100 mg, Oral, Nightl y PRN, Sleep, Starting [facility] 11/26/19 at 0245, For 30 days [facility] Medication administered onsite Nicotine 4 MG/ACTUAT Inhalant Solution nicotine (NICOT ROL) inhaler 1 puff nicotine (NICOTROL) inhaler 1 puff 11/26/2019 02:45:21 AM EDT 1 {puff} Inhalation active 1 puff, Inhala tion, Every 1 hour PRN, Smoking cessation, Craving; MDD 12, Starting [facility] 11/26/19 at 0245, For 30 days
Max of 12 doses per 24-hour period
[facility] Medication administered onsite Acetaminophen 325 MG Oral Tablet acetaminophen (TYLENO L) tablet 650 mg acetaminophen (TYLENOL) tablet 650 mg 11/26/2019 02:45:21 AM EDT 65 0 mg Oral active 650 mg, Oral, E very 4 hours PRN, Mild Pain (Pain Scale Score 1- 3), Headaches, Moderate Pain (Pain Scale Score 4-6), Severe Pain (Pain Scale Score 7-10), MDD 4, Starting [facility] 11/26/19 at 0245, For 30 days
Max of 4 doses per 24-hour period
[facility] Medication administered onsite Hydroxyzine Hydrochloride 50 MG Oral Tablet hydrOXYzin e (ATARAX) tablet 50 mg hydrOXYzine (ATARAX) tablet 50 mg 11/26/2019 02:45:21 AM EDT 50 mg Oral active 50 mg, Oral, Every 6 hours PRN, Anxiety, Sleep, Starting [facility] 11/26/19 at 0245, For 30 days [facility] Medication administered onsite Ondansetron 4 MG Disintegrating Oral Tab let ondansetron (ZOFRAN-ODT) disintegrating tablet 4 mg ondansetron (ZOFRAN-ODT) disintegrating tablet 4 mg 11/26/2019 02:45:21 AM EDT 4 mg Oral active 4 mg, Oral, Every 6 hours PRN, Nausea, Starting [facility] 11/26/19 at 0245, For 30 days
Dissolve on tongue.
[facility] Medication administered onsite Magnesium Hydroxide 80 MG/ML Oral Suspen brian magnesium hydroxide (MILK OF MAGNESIA) 400 MG/5ML suspension 30 mL magnesium hydroxide (MILK OF MAGNESIA) 4 00 MG/5ML suspension 30 mL 11/26/2019 02:45:21 AM EDT 30 mL Oral active 30 mL, Oral, Daily PRN, Constipation, Starting [facility] 11/26/19 at 0245, For 30 days
Shake well before using If serum creatinine > 2 notify provider before administering
[facility] Medication administered onsite Aluminum Hydroxide 40 MG/ML / Magnesium Hydroxide 40 MG/ML / Simethicone 4 MG/ML Oral Suspension Alum & Mag Hydroxide-Simeth (MAALOX PLUS) 200-200-20 MG/5ML suspension 30 mL Alum & Mag Hydroxide-Simeth (MAALOX PLUS ) 200-200-20 MG/5ML suspension 30 mL 11/26/2019 02:45:21 AM EDT 30 mL Oral a ctive 30 mL, Oral, Every 4 hours PRN, Heartburn, Indigestion, MDD 4, Starting [facility] 11/26/19 at 0245, For 30 days
Max of 4 doses per 24-hour period
[facility] Medication administered onsite Insurance Providers Payer name Policy type / Coverage type Policy ID Covered republican ID Covered republican's relationship to santoyo Policy Santoyo Plan Information [facility] [id number] [facility] [id number] [place] [id number] [place]/[id number] [place]/307 [id number] MEDICAID [id number] SP [id number] MEDICAID [id number] SP [id number] [facility] I [id number] Self [id number] [facility] I [id number] Self [id number] [facility] [employer] [id number] Self [id number] [facility] MEDICAID [id number] [place] [id number] [facility] [employer]. [id number] Self [id number] [place] 302/307 [id number] [employer] [id number] SP [id number] [place] P[place] 302/307 [id number] [employer] [id number] [id number] [employer]END[employer]URANCE [id number] SP [id number] MEDICAID [id number] SP [id number] SELF PAY ONLY [id number] SP [id number] [employer] [id number] [id number] ANSI-Not a Secondary Insurance [id number] ANSI-Medicaid [id number] GROUP HE[employer] INSURANCE [id number] SP [id number] MEDICAID [id number] SP [id number] SELF PAY ONLY [id number] SP [id number] MEDICAID M [id number] S [id number] UNHC COMMUNITY PLAN MCDHMO [id number] SP [id number] MEDICAID [id number] SP [id number] Medicaid Dental P UNAVAILABLE S UN AVAILABLE EMEDNY [id number] SP [id number] [facility] [id number] SP [id number] [facility] [id number] SP [id number] UNHC COMMUNITY PLAN MCDHMO [id number] SP [id number] [facility]) O [id number] S [id number] [facility] [id number] SP [id number] UNHC COMMUNITY PLAN XIX [id number] 18 [id number] UNHC COMMUNITY PLAN MCDHMO [id number] SP [id number] [place] P[place] 302/307 [id number] [employer] [id number] Family Dependent BCBS/Excellus Medigap Part B [id number] Family Dependent [employer] PPO O [id number] P [id number] [employer] [id number] SELF PAY [id number] [employer] [id number] Problems, Conditions, and Diagnoses Code Display Name Description Problem Type Effective Dates Data Source(s) [id number] Unspecified injury of left wrist, hand a nd finger(s), initial encounter Unspecified injury of left wrist, hand and finger(s), initial encounter Diagnosis 04/11/2020 12:11:[address] [facility] [id number] Sprain of metacarpophalangea l joint of left middle finger, initial encounter Sprain of metacarpophalangeal joint of l eft middle finger, initial encounter Diagnosis 04/11/2020 12:11:[address] [facility] [id number] Sprain of metacarpophalangea l joint of left ring finger, initial encounter Sprain of metacarpophalangeal joint of l eft ring finger, initial encounter Diagnosis 04/11/2020 12:11:[address] [facility] E78398 Nicotine dependence, cigarettes, uncompl icated Nicotine dependence, cigarettes, uncomplicated Diagnosis 04/11/2020 12:11:00 AM [facility] [id number] Sprain of metacarpophalangea l joint of left little finger, initial encounter Sprain of metacarpophalangeal joint of l eft little finger, initial encounter Diagnosis 04/11/2020 12:11:[address] [facility] [id number] Fall on same level from slip ping, tripping and stumbling without subsequent striking against object, initial encounter Fall on same level from slipping, tripping and stumbling without subsequent striking against object, initial encounter Diagnosis 04/11/2020 12:11:[address] [facility] E18951 Unspecified street and highw ay as the place of occurrence of the external cause Unspecified street and highway as the pl toña of occurrence of the external cause Diagnosis 04/11/2020 12:11:[address] [facility] M79.642 Pain in left hand Pain in left hand Diagnosis 03/30 02:02:41 PM [facility] S61.412A Laceration without foreign body of left hand, initial encounter Laceration without foreign body of left hand, initial encounter Diagnosis 03/30/2020 02:02:41 PM [facility] S66.922A Laceration of unspecified mu scle, fascia and tendon at wrist and hand level, left hand, initial encounter Laceration of unspecified muscle, fascia and tendon at wrist and hand level, left hand, initial encounter Diagnosis 03/30/2020 02:02:41 PM [facility] left hand lac with cellulitis and lympha ngitis with extensor tendon injury left hand lac with cellulitis and lymphangitis with extensor tendon injury Diagnosis 02/16/2020 11:53:00 AM [facility] depression depression Diagnosis 01/15/2020 08:30:00 AM [facility] unspecified psychosis unspecified psychosis Diagnosis 01/15/2020 08:30:00 AM [facility] psychosis psychosis Diagnosis 11/26/2019 02:30:00 AM [facility] E66.01 [id number] Obesity, morbid, BMI 50 or higher Problem 10/09/2020 12:00:00 AM EDT eCW1 ([facility]) G47.30 [id number] Sleep apnea in adult Problem 09/27/2020 12:0 0:00 AM EDT eCW1 ([facility]) B17.10 [id number] Acute hepatitis C virus infection without hepatic coma Problem 09/20/2020 12:00:00 AM EDT eCW1 ([facility]) F12.10 Cannabis abuse, uncomplicated Cannabis Use Disorder, M ild Condition 09/01/2020 12:00:00 AM EDT [facility] ([facility]) Z72.0 Tobacco use Tobacco Use Disorder, Mild Condition 0 09/01/2020 12:00:00 AM EDT [facility] ([facility]) 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 stimulant dependence, uncomplicate d Stimulant Use Disorder, Severe: Other or unspecified stimulant Condition 09/01/2020 12:00:00 AM EDT [facility] ([facility]) F43.9 Reaction to severe stress, unspecified U nspecified Trauma- and Stressor- Related Disorder Condition 09/01/2020 12:00:00 AM EDT [facility] ([facility]) F29 Unspecified psychosis not du e to a substance or known physiological condition Unspecified Schizophrenia Spectrum and Other Psychotic Disorder Condition 09/01/2020 12:00:00 AM EDT [facility] ([facility]) B18.2 [id number] Chronic hepatitis C without hepatic coma Problem 05/03/2020 12:00:00 AM EDT eCW1 ([facility]) Z86.14 [id number] History of MRSA infection Problem 04/21/2020 12:00:00 AM EST eCW1 ([facility]) F19.11 [id number] History of intravenous drug abuse Pr oblem 04/21/2020 12:00:00 AM EST eCW1 ([facility]) F25.0 [id number] Schizoaffective disorder, bipolar type Pr oblem 04/21/2020 12:00:00 AM EST eCW1 ([facility]) Z68.42 [id number] BMI 45.0-49.9, adult Problem 04/21/2020 12:0 0:00 AM EST eCW1 ([facility]) F43.9 Reaction to severe stress, unspecified U nspecified Trauma- and Stressor- Related Disorder Condition 03/09/2020 12:00:00 AM EST [facility] ([facility]) 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 stimulant dependence, uncomplicate d Stimulant Use Disorder, Moderate: Other or unspecified stimulant Condition 03/09/2020 12:00:00 AM EST [facility] ([facility]) Z72.0 Tobacco use Tobacco Use Disorder, Mild Condition 0 03/09/2020 12:00:00 AM EST [facility] ([facility]) F29 Unspecified psychosis not du e to a substance or known physiological condition Unspecified Schizophrenia Spectrum and Other Psychotic Disorder Condition 03/09/2020 12:00:00 AM EST [facility] ([facility]) [id number] Tobacco use Tobacco use Condition 11/13/2019 12:00:00 AM EDT [facility] ([facility]) 03530232 Depressive episode, unspecified Depressive episo de, unspecified Condition 11/13/2019 12:00:00 AM EDT [facility] ([facility]) 72035650 Depressive episode, unspecified Depressive episo de, unspecified Condition 11/13/2019 12:00:00 AM EDT [facility] ([facility]) 117760048 Tobacco use Tobacco use Condition 11/13/2019 12:00:00 AM EDT [facility] ([facility]) 27508597 Depressive episode, unspecified Depressive episo de, unspecified Condition 11/13/2019 12:00:00 AM EDT [facility] ([facility]) 480015517 Tobacco use Tobacco use Condition 11/13/2019 12:00:00 AM EDT [facility] ([facility]) 69599664 Depressive episode, unspecified Depressive episo de, unspecified Condition 11/13/2019 12:00:00 AM EDT [facility] ([facility]) 692562020 Tobacco use Tobacco use Condition 11/13/2019 12:00:00 AM EDT [facility] ([facility]) 039727631 Tobacco use Tobacco use Condition 11/13/2019 12:00:00 AM EDT [facility] ([facility]) 09524440 Depressive episode, unspecified Depressive episo de, unspecified Condition 11/13/2019 12:00:00 AM EDT [facility] ([facility]) 10086236 Depressive episode, unspecified Depressive episo de, unspecified Condition 11/13/2019 12:00:00 AM EDT [facility] ([facility]) 352953923 Tobacco use Tobacco use Condition 11/13/2019 12:00:00 AM EDT [facility] ([facility]) 54944049 Depressive episode, unspecified Depressive episo de, unspecified Condition 11/13/2019 12:00:00 AM EDT [facility] ([facility]) 149252846 Tobacco use Tobacco use Condition 11/13/2019 12:00:00 AM EDT [facility] ([facility]) 25743306 Depressive episode, unspecified Depressive episo de, unspecified Condition 11/13/2019 12:00:00 AM EDT [facility] ([facility]) 742956289 Tobacco use Tobacco use Condition 11/13/2019 12:00:00 AM EDT [facility] ([facility] [facility] [id number] Depressive episode, unspecified Depressive episo de, unspecified Condition 11/13/2019 12:00:00 AM EDT [facility] ([facility]) [id number] Tobacco use Tobacco use Condition 11/13/2019 12:00:00 AM EDT [facility] ([facility]) [id number] Tobacco use Tobacco use Condition 11/13/2019 12:00:00 AM EDT [facility] ([facility]) [id number] Tobacco use Tobacco use Condition 11/13/2019 12:00:00 AM EDT [facility] ([facility]) [id number] Tobacco use Tobacco use Condition 11/13/2019 12:00:00 AM EDT [facility] ([facility]) [id number] Depressive episode, unspecified Depressive episo de, unspecified Condition 11/13/2019 12:00:00 AM EDT [facility] ([facility]) [id number] Depressive episode, unspecified Depressive episo de, unspecified Condition 11/13/2019 12:00:00 AM EDT [facility] ([facility]) [id number] Depressive episode, unspecified Depressive episo de, unspecified Condition 11/13/2019 12:00:00 AM EDT [facility] ([facility]) [id number] Depressive episode, unspecified Depressive episo de, unspecified Condition 11/13/2019 12:00:00 AM EDT [facility] ([facility]) [id number] Tobacco use Tobacco use Condition 11/13/2019 12:00:00 AM EDT [facility] ([facility]) [id number] Depressive episode, unspecified Depressive episo de, unspecified Condition 11/13/2019 12:00:00 AM EDT [facility] ([facility]) [id number] Tobacco use Tobacco use Condition 11/13/2019 12:00:00 AM EDT [facility] ([facility]) [id number] Tobacco use Tobacco use Condition 11/13/2019 12:00:00 AM EDT [facility] ([facility]) [id number] Tobacco use Tobacco use Condition 11/13/2019 12:00:00 AM EDT [facility] ([facility]) [id number] Depressive episode, unspecified Depressive episo de, unspecified Condition 11/13/2019 12:00:00 AM EDT [facility] ([facility]) [id number] Depressive episode, unspecified Depressive episo de, unspecified Condition 11/13/2019 12:00:00 AM EDT [facility] ([facility]) [id number] Depressive episode, unspecified Depressive episo de, unspecified Condition 11/13/2019 12:00:00 AM EDT [facility] ([facility]) [id number] Tobacco use Tobacco use Condition 11/13/2019 12:00:00 AM EDT [facility] ([facility]) [id number] Depressive episode, unspecified Depressive episo de, unspecified Condition 11/13/2019 12:00:00 AM EDT [facility] ([facility]) [id number] Tobacco use Tobacco use Condition 11/13/2019 12:00:00 AM EDT [facility] ([facility]) [id number] Tobacco use Tobacco use Condition 11/13/2019 12:00:00 AM EDT [facility] ([facility]) [id number] Tobacco use Tobacco use Condition 11/13/2019 12:00:00 AM EDT [facility] ([facility]) [id number] Depressive episode, unspecified Depressive episo de, unspecified Condition 11/13/2019 12:00:00 AM EDT [facility] ([facility]) [id number] Depressive episode, unspecified Depressive episo de, unspecified Condition 11/13/2019 12:00:00 AM EDT [facility] ([facility]) [id number] Depressive episode, unspecified Depressive episo de, unspecified Condition 11/13/2019 12:00:00 AM EDT [facility] ([facility]) [id number] Tobacco use Tobacco use Condition 11/13/2019 12:00:00 AM EDT [facility] ([facility]) [id number] Depressive episode, unspecified Depressive episo de, unspecified Condition 11/13/2019 12:00:00 AM EDT [facility] ([facility]) [id number] Tobacco use Tobacco use Condition 11/13/2019 12:00:00 AM EDT [facility] ([facility]) [id number] Depressive episode, unspecified Depressive episo de, unspecified Condition 11/13/2019 12:00:00 AM EDT [facility] [id number] Tobacco use Tobacco use Condition 11/13/2019 12:00:00 AM EDT [facility] ([facility]) [id number] Depressive episode, unspecified Depressive episo de, unspecified Condition 11/13/2019 12:00:00 AM EDT [facility] ([facility]) [id number] Tobacco use Tobacco use Condition 11/13/2019 12:00:00 AM EDT [facility] ([facility]) Surgeries/Procedures Procedure Description Date Indications Data Source(s) Brief Individual Psychotherapy - 30 min 09/01/2020 12:00:00 AM EDT - 09/01/2020 12:00:00 AM EDT [facility] ([facility]) Brief Individual Psychotherapy - 30 min 09/01/2020 12: 00:00 AM EDT [facility] ([facility]) [facility] Telemed E/M Lvl 3--Est pt 08/09/2020 12:00:00 AM EDT - 08/09/2020 12:00:00 AM EDT [facility] ([facility]) Telemed A/O 30" 08/09/2020 12:00:00 AM EDT [facility] ([facility]) [facility] Telemed E/M Lvl 3--Est pt 08/09/2020 12:00:00 AM E DT [facility] ([facility]) [facility] Telemed E/M Lvl 3--Est pt 08/03/2020 12:00:00 AM EDT - 08/03/2020 12:00:00 AM EDT [facility] ([facility]) [facility] Telemed E/M Lvl 3--Est pt 08/03/2020 12:00:00 AM E DT [facility] ([facility]) Brief Individual Psychotherapy - 30 min 07/28/2020 12:00:00 AM EDT - 07/28/2020 12:00:00 AM EDT [facility] ([facility]) Brief Individual Psychotherapy - 30 min 07/28/2020 12: 00:00 AM EDT [facility] ([facility]) [facility] Telemed E/M Lvl 3--Est pt 07/01/2020 12:00:00 AM EDT - 07/01/2020 12:00:00 AM EDT [facility] ([facility]) Telemed A/O 30" 07/01/2020 12:00:00 AM EDT [facility] ([facility]) [facility] Tele[facility] E/M Lvl 3--Est pt 07/01/2020 12:00:00 AM E DT [facility] ([facility]) Brief Individual Psychotherapy - 30 min 06/30/2020 12:00:00 AM EDT - 06/30/2020 12:00:00 AM EDT [facility] ([facility]) Brief Individual Psychotherapy - 30 min 06/30/2020 12: 00:00 AM EDT [facility] ([facility]) Extended Individual Psychotherapy - 45 min 06/16/2020 12:00:00 AM EDT - 06/16/2020 12:00:00 AM EDT [facility] ([facility]) Extended Individual Psychotherapy - 45 min 12:00:00 AM EDT [facility] ([facility]) [facility] Tele[facility] E/M Lvl 3--Est pt 06/10/2020 12:00:00 AM EDT - 06/10/2020 12:00:00 AM EDT [facility] ([facility]) Telemed A/O 30" 06/10/2020 12:00:00 AM EDT [facility] ([facility]) [facility] Telemed E/M Lvl 3--Est pt 06/10/2020 12:00:00 AM E DT [facility] ([facility]) Telemed Diagnostic Eval 06/03/2020 12:00 :00 AM EDT - 06/03/2020 12:00:00 AM EDT [facility] ([facility]) Telemed Diagnostic Eval 06/03/2020 12:00:00 AM EDT [facility] ([facility]) HEPATITIS A VACCINE ADULT FOR INTRAMUSCULAR USE 2020 12:00:00 AM EDT [facility] ([facility]) Brief Individual Psychotherapy - 30 min 05/09/2020 12:00:00 AM EDT - 05/09/2020 12:00:00 AM EDT [facility] ([facility]) Brief Individual Psychotherapy - 30 min 05/09/2020 12: 00:00 AM EDT [facility] ([facility]) Extended Individual Psychotherapy - 45 min 12:00:00 AM EST [facility] ([facility]) Extended Individual Psychotherapy - 45 min 03/31/2020 12:00:00 AM EST - 03/31/2020 12:00:00 AM EST [facility] ([facility]) Telemed Diagnostic Eval 03/30/2020 12:00:00 AM EST [facility] ([facility]) Telemed Diagnostic Eval 03/30/2020 12:00 :00 AM EST - 03/30/2020 12:00:00 AM EST [facility] ([facility]) Extended Individual Psychotherapy - 45 min 12:00:00 AM EST [facility] ([facility]) Extended Individual Psychotherapy - 45 min 03/14/2020 12:00:00 AM EST - 03/14/2020 12:00:00 AM EST [facility] ([facility]) Extended Individual Psychotherapy - 45 min 12:00:00 AM EST [facility] ([facility]) Extended Individual Psychotherapy - 45 min 03/09/2020 12:00:00 AM EST - 03/09/2020 12:00:00 AM EST [facility] ([facility]) [id number]"Psychotherapy 02/22/2020 12:00:00 AM EST [facility] ([facility]) [id number]"Psychotherapy 12:00:00 AM EST - 02/22/2020 12:00:00 AM EST [facility] ([facility]) Psychiatric Diagnostic Evaluation with Medical Services 02/16/2020 12:00:00 AM EST [facility] ([facility]) Psychiatric Diagnostic Evaluation with Medical Services 02/16/2020 12:00:00 AM EST - 02/16/2020 12:00:00 AM EST [facility] ([facility]) [id number]"Psychotherapy 02/08/2020 12:00:00 AM EST [facility] ([facility]) [id number]"Psychotherapy 0 12:00:00 AM EST - 02/08/2020 12:00:00 AM EST [facility] ([facility]) Psychiatric Diagnostic Evaluation (Non-Medical) 2019 12:00:00 AM EST [facility] ([facility]) Psychiatric Diagnostic Evaluation (Non-Medical) 02/05/2020 12:00:00 AM EST - 02/05/2020 12:00:00 AM EST [facility] ([facility]) Psychiatric Diagnostic Evaluation (Non-Medical) 2019 12:00:00 AM EST [facility] ([facility]) Psychiatric Diagnostic Evaluation (Non-Medical) 02/01/2020 12:00:00 AM EST - 02/01/2020 12:00:00 AM EST [facility] ([facility]) Psychiatric Diagnostic Evaluation (Non-Medical) 2019 12:00:00 AM EST [facility] ([facility]) Psychiatric Diagnostic Evaluation (Non-Medical) 01/25/2020 12:00:00 AM EST - 01/25/2020 12:00:00 AM EST [facility] ([facility]) COMPREHENSIVE METABOLIC PANEL <td>COMPREHENSIVE METABO LIC PANEL</td><td>Routine</td><td>12/01/2019 12:15 PM EDT</td><td></td><td> </td> 12/01/2019 12:15:00 PM [facility] 25 HYDROXY INCLUDES FRACTIONS IF PERFORMED <td>VITAMIN D 25 HYDROXY, TOTAL</td><td>Routine</td><td>12/01/2019 12:15 PM EDT</td><td></td><td> </td> 12/01/2019 12:15:00 PM [facility] Diagnostic psychiatric interview (procedure) 0 12:00:00 AM EDT [facility]) Diagnostic psychiatric interview (procedure) 0 12:00:00 AM EDT [facility]) Diagnostic psychiatric interview (procedure) 0 12:00:00 AM EDT [facility]) Diagnostic psychiatric interview (procedure) 0 12:00:00 AM EDT [facility]) Diagnostic psychiatric interview (procedure) 0 12:00:00 AM EDT [facility]) Diagnostic psychiatric interview (procedure) 0 12:00:00 AM EDT [facility]) Results ID Date Data Source [id number] 05/11/2020 12:33:00 AM EDT [facility] Name Value Range Interpretation Code Description Data Anahi rce(s) Supporting Document(s) COVID-19 RT-PCR NASAL SWAB Not Detected Not Detected [facility] A not detected (negative) test result fo r this test means that SARS-CoV-2 RNA was not present in the specimen above the limit ofdetection. Laboratory test results should always be considered in thecontext of clinical observations and epidemiological data in making afinal diagnosis and patient management decisions. Results will bereported to government agencies as required.This test has received Emergency Use Authorization (EUA). We will continue to follow federal and state requirements for COVID-19 reporting. This test has been authorized only for the detection of RNAfrom SARS-CoV-2 virus and diagnosis of SARS-CoV-2 virus infection, notfor any other viruses or pathogens. This test is only authorized for the duration of the declaration that circumstances exist justifying the authorization of the emergency use of in vitro diagnostic tests for detection of SARS-CoV-2 virus and/or diagnosis of SARS-CoV-2 virusinfection under section 564(b)(1) of the Act, 21 U.S.C. section 360bbb-3(b)(1), unless the authorization is terminated or revoked sooner. We will continue to follow federal and state requirements for both notification of results and any confirmatory testing that is required by another agency. This test was developed and its performance characteristics determined by [employer] and verified at [facility]. It has not been cleared or approved by the U.S. Food and Drug Administration for diagnostic use. This test has been authorized by FDA under an EUA for use by authorized laboratories. Results should be used in conjunction with clinical findings, and should not form the sole basis for a diagnosis or treatment decision. Methods: SARS-CoV-2 Multiplex RT-PCR Assay ID Date Data Source [id number] 05/06/2020 12:30:00 PM EDT [facility] Name Value Range Interpretation Code Description Data Anahi rce(s) Supporting Document(s) SARS-CoV-2 (COVID-19) N gene [Presence] in Respiratory specimen by TAISHA with probe detection NEGATIVE [facility] This lab was ordered by [facility] and reported by [facility]. ID Date Data Source [id number] 05/06/2020 12:00:00 AM EDT [facility] Name Value Range Interpretation Code Description Data Anahi rce(s) Supporting Document(s) Carestart Rapid COVID Antigen Test Negative [facility] This lab was reported by [facility]. ID Date Data Source [id number] 04/19/2020 05:00:00 AM EST [facility] ([facility]) Name Value Range Interpretation Code Description Data Anahi rce(s) Supporting Document(s) UREA NITROGEN (BUN) 19.0 mg/dL [facility] ([facility]) Creatinine [Interpretation] in Urine 0.95 mg/dL [facility] ([facility]) Glucose [Mass/volume] in Urine collected for unspecified duratio n 109.0 mg/dL [facility] ([facility]) Sodium [Moles/volume] in Serum, Plasma or Blood 139.0 mmol/L [facility] ([facility]) eGFR MITZI 127.0 mL/min/1.73m2 [facility] ([facility]) eGFR NON-AFR. ENGLISH 109.0 mL/min/1.73m2 [facility] ([facility]) BUN/CREATININE RATIO NOT APPLICABLE [facility] ([facility]) Potassium [Mass/volume] in Blood 4.3 mmol/L [facility] Carbon dioxide [VFr/PPres] in Gas delivery system 22.0 mmol/L [facility] ([facility]) Chloride [Moles/volume] in Serum, Plasma or Blood 106.0 mmol/L [facility] PROTEIN, TOTAL 7.0 g/dL [facility] ([facility]) Calcium [Moles/volume] in Urine collected for unspecified durati on 9.2 mg/dL [facility] ([facility]) Microalbumin [Mass/time] in Urine collected for unspecified dura tion 4.2 g/dL [facility] ([facility]) Globulin [Mass/time] in 24 hour Urine 2.8 g/dL (calc) [facility] ([facility]) ALBUMIN/GLOBULIN RATIO 1.5 (calc) [facility] ([facility]) BILIRUBIN, TOTAL 0.3 mg/dL [facility] ([facility]) Alkaline phosphatase [Enzymatic activity/volume] in Se rum, Plasma or Blood 86.0 U/L [facility] ([facility]) AST 34.0 U/L [facility] ) Color of Peritoneal dialysis fluid YELLOW [facility] ([facility]) ALT 47.0 U/L [facility]) Appearance of Abdomen TURBID [facility] ([facility]) Specific gravity of Pericardial fluid by Refractometry 1.027 [facility] ([facility]) pH of Lower respiratory specimen 6.0 [facility] ([facility]) Glucose [Mass/volume] in Urine collected for unspecified duration N EGATIVE [facility] ([facility]) Ketones [Presence] in Blood by Tablet NEGATIVE [facility] ([facility]) OCCULT BLOOD NEGATIVE [facility]) Protein [Mass/volume] in Lower respiratory specimen NEGATIVE [facility] ([facility]) Bilirubin [Presence] in Peritoneal fluid NEGATIVE [facility] ([facility]) Leukocyte esterase [Presence] in Body fluid by Automated test st rip NEGATIVE [facility] ([facility]) WBC NONE SEEN [facility] ([facility] ) Nitrite [Presence] in Urine by Test strip NEGATIVE [facility] ([facility]) RENAL EPITHELIAL CELLS DNR [facility] ([facility]) TRANSITIONAL EPITHELIAL CELLS DNR [facility] ([facility]) RBC NONE SEEN [facility] ([facility] ) SQUAMOUS EPITHELIAL CELLS 0-5 [facility] ([facility]) Calcium oxalate crystals [Presence] in Urine sediment by Light m icroscopy DNR [facility] ([facility]) Bacteria [Presence] in Prostatic fluid by Light microscopy NONE SEEN [facility] ([facility]) Triple phosphate crystals [Presence] in Urine sediment by Li ght microscopy DNR [facility] ([facility]) URIC ACID CRYSTALS DNR [facility]) HYALINE CAST NONE SEEN [facility]) Amorphous sediment [Presence] in Urine sediment by Light microscopy D NR [facility] ([facility]) Crystals [#/area] in Body fluid by Light microscopy DNR [facility] ([facility]) GRANULAR CAST DNR [facility] ([facility]) Casts [#/area] in Urine sediment by Automated count DNR [facility] ([facility]) Yeast [#/area] in Urine by Automated count DNR [facility] ([facility]) Structure of plantar digital artery (body structure) 5.5 Thousand/uL [facility] ([facility]) COMMENTS DNR [facility] ) Nurse Note DNR [facility]) Hemoglobin [Mass/volume] in Mixed venous blood by Oximetry 15.2 g/dL [facility] ([facility]) MCV 86.2 fL [facility]) Hematocrit [Pure volume fraction] of Blood by Automated count 43.7 % [facility] ([facility]) RED BLOOD CELL COUNT 5.07 Million/uL [facility] ([facility]) MCHC 34.8 g/dL [facility]) RDW 13.6 % [facility]) MCH 30.0 pg [facility]) ABSOLUTE BAND NEUTROPHILS DNR [facility] ([facility]) MPV 10.8 fL [facility]) ABSOLUTE NEUTROPHILS 2701.0 cells/uL [facility] ([facility]) PLATELET COUNT 269.0 Thousand/uL [facility] ([facility]) ABSOLUTE MYELOCYTES DNR [facility] ( [facility]) ABSOLUTE METAMYELOCYTES DNR [facility] ([facility]) ABSOLUTE PROMYELOCYTES DNR [facility] ([facility]) ABSOLUTE MONOCYTES 325.0 cells/uL [facility] ([facility]) ABSOLUTE LYMPHOCYTES 2074.0 cells/uL [facility] ([facility]) ABSOLUTE BASOPHILS 28.0 cells/uL [facility] ([facility]) ABSOLUTE EOSINOPHILS 374.0 cells/uL [facility] ([facility]) Neutrophils [#] in Body fluid by Manual count 49.1 % [facility] ([facility]) ABSOLUTE NUCLEATED RBC DNR [facility] ([facility]) ABSOLUTE BLASTS DNR [facility]) Promyelocytes [#] in Body fluid by Manual count DNR [facility] ([facility]) Myelocytes [#] in Body fluid by Manual count DNR [facility] ([facility]) BAND NEUTROPHILS DNR [facility]) Metamyelocytes [#] in Body fluid by Manual count DNR [facility] ([facility]) Monocytes [#/volume] in Cord blood 5.9 % [facility] ([facility]) Lymphocytes [#] in Body fluid by Manual count 37.7 % [facility] ([facility]) REACTIVE LYMPHOCYTES DNR [facility] ([facility]) Eosinophils [#] in Body fluid by Manual count 6.8 % [facility] ([facility]) Basophils [#] in Body fluid by Manual count 0.5 % [facility] ([facility]) Blasts [#] in Body fluid by Manual count DNR [facility] ([facility]) NUCLEATED RBC DNR [facility] ([facility]) INDEX 41.0 [facility]) HEPATITIS C ANTIBODY REACTIVE [facility] ([facility]) COMMENT(S) DNR [facility]) RPR (DX) W/REFL TITER AND CONFIRMATORY TESTING NON-REACTIVE [facility] ([facility]) HCV RNA, QUANTITATIVE REAL TIME [facility] ([facility]) HCV RNA, QUANTITATIVE REAL TI [facility] ([facility]) Enhanced PDF Report [id number] [facility] ([facility]) Comment [Interpretation] Left eye Narrative Ophthalmometer [facility] ([facility]) HCV RNA, QUANTITATIVE REAL TI 2.67 Log IU/mL [facility] ([facility]) HCV RNA, QUANTITATIVE REAL TIME 470.0 IU/mL [facility] ([facility]) ID Date Data Source [id number] 04/27/2020 11:47:00 AM EST [facility] Received: 04/20/2020 at 05:42:00 QPT : [facility], [address], [address] [place] [address], [phone], Alek Echavarria MD Received: 04/20/2020 at 05:42:00 QPT : [facility], [address], [address] [place] [address], [phone], Alek Echavarria MD Received: 04/20/2020 at 05:42:00 QPT : [facility], [address], [address] [place] [address], [phone] MD Received: 04/20/2020 at 05:42:00 QPT : [facility], [address], [address] [place] [address], [phone] MD Received: 04/20/2020 at 05:42:00 QPT : [facility], [address], [address] [place] [address], [phone] MD Received: 04/20/2020 at 05:42:00 QPT : [facility], [address], [address] [place], [phone], Alek Echavarria MD Name Value Range Interpretation Code Description Data Anahi rce(s) Supporting Document(s) Glucose [Mass/volume] in Serum or Plasma 109 mg/dL 65-99 Above high normal [facility] Fasting reference intervalFor someone without known diabetes, a glucose valuebetween 100 and 125 mg/dL is consistent withprediabetes and should be confirmed with afollow-up test. Urea nitrogen [Mass/volume] in Serum or Plasma 19 mg/dL 7 -25 Normal (applies to non-numeric results) [facility] Creatinine [Mass/volume] in Serum or Plasma 0.95 mg/dL 0.60 -1.35 Normal (applies to non-numeric results) [facility] Glomerular filtration rate/1.73 sq M.pre dicted [Volume Rate/Area] in Serum, Plasma or Blood by Creatinine-based formula (MDRD) 109 mL/min/1.73m2 > OR = 60 Normal (applies to non-numeric results) [facility] Glomerular filtration rate/1.73 sq M pre dicted among blacks [Volume Rate/Area] in Serum or Plasma by Creatinine-based formula (MDRD) 127 mL/min/1.73m2 > OR = 60 Normal (applies to non-numeric results) [facility] Urea nitrogen/Creatinine [Mass Ratio] in Serum or Plasma NOT APPLICABLE (calc) 6-22 [facility] Sodium [Moles/volume] in Serum or Plasma 139 mmol/L 135-146 Normal (applies to non-numeric results) [facility] Potassium [Moles/volume] in Serum or Plasma 4.3 mmol/L 3.5- 5.3 Normal (applies to non-numeric results) [facility] Chloride [Moles/volume] in Serum or Plasma 106 mmol/L 98-11 0 Normal (applies to non-numeric results) [facility] Carbon dioxide, total [Moles/volume] in Serum or Plasma 22 mmol/ L 20-32 Normal (applies to non-numeric results) [facility] Calcium [Mass/volume] in Serum or Plasma 9.2 mg/dL 8.6-10. 3 Normal (applies to non-numeric results) [facility] Protein [Mass/volume] in Serum or Plasma 7.0 g/dL 6.1-8.1 Normal (applies to non-numeric results) [facility] Albumin [Mass/volume] in Serum or Plasma 4.2 g/dL 3.6-5.1 Normal (applies to non-numeric results) [facility] Globulin [Mass/volume] in Serum by calculation 2.8 g/dL (calc) 1 .9-3.7 Normal (applies to non-numeric results) [facility] Albumin/Globulin [Mass Ratio] in Serum or Plasma 1.5 (calc) 1.0-2.5 Normal (applies to non-numeric results) [facility] Bilirubin.total [Mass/volume] in Serum or Plasma 0.3 mg/dL 0.2-1.2 Normal (applies to non-numeric results) [facility] Alkaline phosphatase [Enzymatic activity/volume] in Serum or Plasma 86 U/L 36-130 Normal (applies to non-numeric results) [facility] Aspartate aminotransferase [Enzymatic activity/volume] in Serum or Plasma 34 U/L 10-40 Normal (applies to non-numeric results) [facility] Alanine aminotransferase [Enzymatic activity/volume] in Seru m or Plasma 47 U/L 9-46 Above high normal [facility] ID Date Data Source [id number] 04/27/2020 11:47:00 AM EST [facility] Received: 04/20/2020 at 05:42:00 QPT : [facility], [address], [address] [place] [address], [phone], Alek Echavarria MD Received: 04/20/2020 at 05:42:00 QPT : [facility], [address], [address] [place] [address], [phone] MD Received: 04/20/2020 at 05:42:00 QPT : [facility], [address], [address] [place] [address], [phone] MD Received: 04/20/2020 at 05:42:00 QPT : [facility], [address], [address] [place] [address], [phone] MD Received: 04/20/2020 at 05:42:00 QPT : [facility], [address], [address] [place], [phone], Alek Echavarria MD Received: 04/20/2020 at 05:42:00 QPT : [facility], [address], [address] [place], [phone], Alek Echavarria MD Name Value Range Interpretation Code Description Data Anahi rce(s) Supporting Document(s) Color of Urine YELLOW YELLOW Normal (applies to non-numeric r esults) [facility] Appearance of Urine TURBID CLEAR Abnormal (applies to non-nu meric results) [facility] Specific gravity of Urine by Test strip 1.027 1.001-1. 035 Normal (applies to non-numeric results) [facility] pH of Urine by Test strip 6.0 5.0-8.0 Normal (applies to non-numeric results) [facility] Glucose [Presence] in Urine by Test strip NEGATIVE NEGATI VE Normal (applies to non-numeric results) [facility] Bilirubin.total [Presence] in Urine by Test strip NEGATIVE NEGATIVE Normal (applies to non-numeric results) [facility] Ketones [Presence] in Urine by Test strip NEGATIVE NEGATI VE Normal (applies to non-numeric results) [facility] Hemoglobin [Presence] in Urine by Test strip NEGATIVE NEG ATIVE Normal (applies to non-numeric results) [facility] Protein [Presence] in Urine by Test strip NEGATIVE NEGATI VE Normal (applies to non-numeric results) [facility] Nitrite [Presence] in Urine by Test strip NEGATIVE NEGATI VE Normal (applies to non-numeric results) [facility] Leukocyte esterase [Presence] in Urine by Test strip NEGATIVE NEGATIVE Normal (applies to non-numeric results) [facility] Leukocytes [#/area] in Urine sediment by Microscopy hi gh power field NONE SEEN /HPF < OR = 5 Normal (applies to non-numeric results) [facility] Erythrocytes [#/area] in Urine sediment by Microscopy high power field NONE SEEN /HPF < OR = 2 Normal (applies to non-numeric results) [facility] Epithelial cells.squamous [#/area] in Ur ine sediment by Microscopy high power field 0-5 /HPF < OR = 5 [facility] Bacteria [#/area] in Urine sediment by Microscopy high power field NONE SEEN /HPF NONE SEEN Normal (applies to non-numeric results) [facility] Hyaline casts [#/area] in Urine sediment by Microscopy low power field NONE SEEN /LPF NONE SEEN Normal (applies to non-numeric results) [facility] ID Date Data Source [id number] 04/27/2020 11:47:00 AM EST [facility] Received: 04/20/2020 at 05:42:00 QPT : [facility], [address], [address] [place], [phone], Alek Echavarria MD Received: 04/20/2020 at 05:42:00 QPT : [facility], [address], [address] [place], [phone], Alek Echavarria MD Received: 04/20/2020 at 05:42:00 QPT : [facility], [address], [address] [place] [address], [phone], Alek Echavarria MD Received: 04/20/2020 at 05:42:00 QPT : [facility], [address], [address] [place], [phone], Alek Echavarria MD Received: 04/20/2020 at 05:42:00 QPT : [facility], [address], [address] [place], [phone] MD Received: 04/20/2020 at 05:42:00 QPT : [facility], [address], [address] [place] [address], [phone], Alek Echavarria MD Name Value Range Interpretation Code Description Data Anahi rce(s) Supporting Document(s) Leukocytes [#/volume] in Blood by Automated count 5.5 Thousand/u L 3.8-10.8 Normal (applies to non-numeric results) [facility] Erythrocytes [#/volume] in Blood by Automated count 5.07 Million /uL 4.20-5.80 Normal (applies to non-numeric results) [facility] Hemoglobin [Mass/volume] in Blood 15.2 g/dL 13.2-17.1 Normal (applies to non- numeric results) [facility] Hematocrit [Volume Fraction] of Blood by Automated count 43.7 % 38.5-50.0 Normal (applies to non-numeric results) [facility] Erythrocyte mean corpuscular volume [Entitic volume] by Auto mated count 86.2 fL 80.0-100.0 Normal (applies to non-numeric results) [facility] Erythrocyte mean corpuscular hemoglobin [Entitic mass] by Automated count 30.0 pg 27.0-33.0 Normal (applies to non-numeric results) [facility] Erythrocyte mean corpuscular hemoglobin concentration [Mass/volume] by Automated count 34.8 g/dL 32.0-36.0 Normal (applies to non-numeric results) [facility] Erythrocyte distribution width [Ratio] by Automated count 13.6 % 11.0-15.0 Normal (applies to non-numeric results) [facility] Platelets [#/volume] in Blood by Automated count 269 Thousand/uL 140-400 Normal (applies to non-numeric results) [facility] Platelet mean volume [Entitic volume] in Blood by Matt-Amish 10. 8 fL 7.5-12.5 Normal (applies to non-numeric results) [facility] Neutrophils [#/volume] in Blood by Automated count 2701 cells/uL 2394-8949 Normal (applies to non-numeric results) [facility] Lymphocytes [#/volume] in Blood by Automated count 2074 cells/uL 850-3900 Normal (applies to non-numeric results) [facility] Monocytes [#/volume] in Blood by Automated count 325 cells/uL 200-950 Normal (applies to non-numeric results) [facility] Eosinophils [#/volume] in Blood by Automated count 374 cells/uL 15-500 Normal (applies to non-numeric results) [facility] Basophils [#/volume] in Blood by Automated count 28 cells/uL 0-200 Normal (applies to non-numeric results) [facility] Neutrophils/100 leukocytes in Blood by Automated count 49.1 % 38-80 Normal (applies to non-numeric results) [facility] Lymphocytes/100 leukocytes in Blood by Automated count 37.7 % 15-49 Normal (applies to non-numeric results) [facility] Monocytes/100 leukocytes in Blood by Automated count 5.9 % 0-13 Normal (applies to non-numeric results) [facility] Eosinophils/100 leukocytes in Blood by Automated count 6.8 % 0-8 Normal (applies to non-numeric results) [facility] Basophils/100 leukocytes in Blood by Automated count 0.5 % 0-2 Normal (applies to non-numeric results) [facility] ID Date Data Source [id number] 04/27/2020 11:47:00 AM EST [facility] Received: 04/20/2020 at 05:42:00 QPT : [facility], [address], [address] [place], [phone], Alek Echavarria MD Received: 04/20/2020 at 05:42:00 QPT : [facility], [address], [address] [place] [address], [phone], Alek Echavarria MD Received: 04/20/2020 at 05:42:00 QPT : [facility], [address], [address] [place] [address], [phone], Alek Echavarria MD Received: 04/20/2020 at 05:42:00 QPT : [facility], [address], [address] [place] [address], [phone] MD Received: 04/20/2020 at 05:42:00 QPT : [facility], [address], [address] [place] [address], [phone] MD Received: 04/20/2020 at 05:42:00 QPT : [facility], [address], [address] [place] [address], [phone], Alek Echavarria MD Name Value Range Interpretation Code Description Data Anahi rce(s) Supporting Document(s) Hepatitis C virus Ab [Presence] in Serum or Plasma by Immuno assay REACTIVE NON-REACTIVE Abnormal (applies to non-numeric results) [facility] Hepatitis C virus Ab Signal/Cutoff in Serum or Plasma by Imm unoassay 41.00 <1.00 Above high normal [facility] Based on this result, the sample will be testedfor HCV RNA by a Nucleic Acid Amplification Test (NAAT)to determine if the patient has a current activeinfection. ID Date Data Source [id number] 04/27/2020 11:47:00 AM EST [facility] Received: 04/20/2020 at 05:42:00 QPT : [facility], [address], [address] [place], [phone] MD Received: 04/20/2020 at 05:42:00 QPT : [facility], [address], [address] [place], [phone] MD Received: 04/20/2020 at 05:42:00 QPT : [facility], [address], [address] [place], [phone] MD Received: 04/20/2020 at 05:42:00 QPT : [facility], [address], [address] [place], [phone] MD Received: 04/20/2020 at 05:42:00 QPT : [facility], [address], [address] [place], [phone] MD Received: 04/20/2020 at 05:42:00 QPT : [facility], [address], [address] [place], [phone] MD Name Value Range Interpretation Code Description Data Anahi rce(s) Supporting Document(s) Hepatitis C virus RNA [Units/volume] (vi ral load) in Serum or Plasma by Probe and target amplification method 470 IU/mL NOT DETECTED Above high normal [facility] Hepatitis C virus RNA [log units/volume] (viral load) in Serum or Plasma by Probe and target amplification method 2.67 Log IU/mL NOT DETECTED Ab ove high normal [facility] HCV RNA was detected. This result provid es laboratoryevidence of a current active HCV infection. COMMENT [facility] This test was performed using Real-Time Polymerase ChainReaction.Reportable Range: 15 IU/mL to 100,000,000 IU/mL(1.18 Log IU/mL to 8.00 Log IU/mL).The analytical performance characteristics of thisassay have been determined by [employer] (previously [employer]).The modifications have not been cleared or approved bythe FDA. This assay has been validated pursuant to theCLIA regulations and is used for clinical purposes.For more information on this test, go to:http://education.[employer]/faq/OHC01n8(This link is being provided for informational/educational purposes only.)This assay is intended for use as an aid in thediagnosis of HCV infection and the management ofHCV infected patients undergoing anti-viral therapy. ID Date Data Source [id number] 04/27/2020 11:47:00 AM EST [facility] Received: 04/20/2020 at 05:42:00 QPT : [facility], [address], [address] [place] [address], [phone], Alek Echavarria MD Received: 04/20/2020 at 05:42:00 QPT : [facility], [address], [address] [place] [address], [phone] MD Received: 04/20/2020 at 05:42:00 QPT : [facility], [address], [address] [place] [address], [phone] MD Received: 04/20/2020 at 05:42:00 QPT : [facility], [address], [address] [place] [address], [phone] MD Received: 04/20/2020 at 05:42:00 QPT : [facility], [address], [address] [place] [address], [phone] MD Received: 04/20/2020 at 05:42:00 QPT : [facility], [address], [address] [place] [address], [phone] MD Name Value Range Interpretation Code Description Data Anahi rce(s) Supporting Document(s) Reagin Ab [Presence] in Serum by RPR NON-REACTIVE NON-REACTIV E Normal (applies to non-numeric results) [facility] ID Date Data Source [id number] 04/11/2020 02:11:00 PM EST [facility] [address] [place] [address] PHONE: [phone] FAX: [phone] Name .................. : ARELY LECHUGA Acct Number.................. : [id number] ROOM. ................. : [address] Number ................... : [id number] Stay type ............. : E/R Discharge Date......... ... : 04/11/20 Admit Date ......... : 04/11/20 Admit Phys .................... : [facility] Date of ....... : 1995 Family Phys ................... : NONSTAFF Phone .................. : [phone] Age ................................ : 24 Film# .................. .:[id number] Sex ................................. : M Unsigned transcriptions are preliminary reports and do not represent a medical or legal document HAND COMPLETE-3 OR MORE VWS L [id number] COMPLETE:04/11/20 06:26 RLB 4826 Reason(s): fall, injury LEFT HAND, 04/11/20: FINDINGS: There is normal alignment and position of the bones of the left hand. No fracture or radiopaque foreign body is identified. IMPRESSION: Unremarkable left hand. Electronically Reviewed and Signed By HOLLY MARTINEZ MD , 04/11/20 14:11, MARCELA Transcribe Initials: SSR, Transcribe Date: 04/11/20 07:35, Dictation Date: Copy for: 710 MED REC DISCHARGED Page 1 of 1 Name Value Range Interpretation Code Description Data Anahi rce(s) Supporting Document(s) ID Date Data Source [id number] 04/11/2020 12:11:00 AM EST [facility] 1 OrderSheet [facility] Emergency Department [address] [place] [address] Phone #: ext- [phone] 04/11/2020 00:11 Patient: ANKUSH MCGEE Sex: M : 1995 Age: 24yWEIGHT:149.6 kg HEIGHT:78 inches BMI:38.1ALLERGIES: No Known Drug AllergyCHIEF COMPLAINT: Lt, handDIAGNOSIS: Fall, Sprain of jointLAB ORDERSOrder Description Priority Entered Acknowledged InitialedDIAGNOSTIC STUDY ORDERSOrder Description Priority Entered Acknowledged InitialedHand Complete Left STAT 00:21 04/11/2020 Ack'd: 00:34 00:36 La Driscoll(Oxygen?(No)) Сергей Emery Katelyn Hartley R.N. ; Reason for Study: fall, injuryMEDICATION/IV/DRIP/FLUID ORDERS Order Description Priority Entered Acknowledged InitialedMotrin 800 mg PO 00:22 04/11/2020 Ack'd: 00:31 Georgi Maldonado RNX1 dose: 800 mg Сергей Emery Initialed: 00:37 La Maldonado R.N.(NOW x1) ; Refused: 00:37 Motrin 800 mg PO X1 dose: 800 mg (NOW x1) was refused by patient.GENERAL ORDERSOrder Description Priority Entered Acknowledged Initialed[Electronically signed by Georgi Maldonado RN (01:02 04/11/2020)][Electronically signed by Сергей Emery (05:01 04/11/2020)][Electronically locked by Georgi Maldonado RN (01:02 04/11/2020)] Name Value Range Interpretation Code Description Data [facility](s) Supporting Document(s) ID Date Data Source [id number] 04/11/2020 12:11:00 AM [place] [address] Medication Reconciliation Report [facility] Emergency Department [address] [place] [address] Phone #: ext- [phone] 04/11/2020 00:11 Patient: ANKUSH MCGEE Sex: M : 1995 Age: 24yWeight: 149.6 kgHeight/Length: 78 in.BMI: 38.1ALLERGIES: No Known Drug AllergyThe patient's Home Medications are listed below:CONTINUE TAKING THE FOLLOWING MEDICATIONS: ZyPREXA Oral, prnThe source(s) of the original Home Medication information:Not obtained.The following Medications were given to the patient in the Emergency Department:None.The following Medications were prescribed to the patient:None. Name Value Range Interpretation Code Description Data [facility](s) Supporting Document(s) ID Date Data Source [id number] 04/11/2020 12:11:[address] [facility] 1 Medication Administration Record [facility] Emergency Department [address] [place] [address] Phone #: ext- [phone] 00:11 Patient: ANKUSH MCGEE Sex: M : 1995 Age: 24yWeight: 149.6 kgHeight/Length: 78 inBMI: 38.1ALLERGIES: No Known Drug AllergyDate/Time Medication Administered Medication Ordered Name Value Range Interpretation Code Description Data Anahi rce(s) Supporting Document(s) ID Date Data Source [id number] 04/11/2020 12:11:00 AM EST [facility] 1 General Instructions [facility] Emergency Department [address] [place] [address] Phone #: ext- [phone] 04/11/2020 00:11 Patient: ANKUSH MCGEE Sex: M : 1995 Age: 24ySprain of the metacarpophalangeal joint of the left middle finger, ring finger and little finger.Fall on the same level by slipping.INSTRUCTIONSApply ice. Elevate affected areas above chest level. Wear elastic wrap as directed.(xr of the left hand did not show any farcture or dislocation. take motrin for pain).Your Current Medications: Your current home medications have been reviewed.CONTINUE TAKING THE FOLLOWING MEDICATIONS:ZyPREXA Oral : prn.Follow-up:Follow up with your healthcare provider. Screening today revealed the patient's blood pressure to be inthe hypertensive stage 2 range. The patient should follow up with a primary care provider for bloodpressure management.Follow-up with: [facility], , , [address] [place] [address], [phone] Follow up in one week if not better. Reason for referral: evaluation. ADDITIONAL INFORMATIONMechanical FallYou have had a fall today. It appears that the cause is what is called mechanical. That means thatyou slipped, tripped, or lost your balance. If your fall had been because of fainting or a seizure, youmight need other tests.It is normal to feel sore and tight in your muscles and back the next day, and not just the muscles youinjured at first. Remember, all the parts of your body are connected, so while initially one area hurts,the next day another may hurt. Also, when you injure yourself, it causes inflammation, which thencauses the muscles to tighten up and hurt more. After the initial worsening, it should graduallyimprove over the next few days. Do report more severe pain.Even without a definite head injury, you can still get a concussion from your head suddenly jerkingforward, backward, or sideways when falling. Concussions and even bleeding can still happen, 2 General Instructions [facility] Emergency Department [address] [place] [address] Phone #: ext- [phone] 04/11/2020 00:11 Patient: ANKUSH MCGEE Sex: M : 1995 Age: 24yespecially if you have had a recent injury or take blood thinner medicine. It is not unusual to have amild headache and feel tired and even nauseous or dizzy.Home care Rest today and go back to your normal activities when you are feeling back to normal. If you were injured during the fall, follow the advice from your healthcare provider regarding care of your injury. At first, do not try to stretch out the sore spots. If there is a strain, stretching may make it worse. Massage may help relax the muscles without stretching them. You can use an ice pack or cold compress on and off to the sore spots 10 to 20 minutes at a time, as often as you feel comfortable. This may help reduce the inflammation, swelling and pain. If you have any scr apes or abrasions, they usually heal within 10 days. It is important to keep the abrasions clean while they initially start to heal. However, an infection may happen even with proper care, so watch for early signs of infection (such as warmth, redness, or swelling).Medicines Talk to your healthcare provider before taking new medicines, especially if you have other medical problems or are taking other medicines. If you need anything for pain, you can take acetaminophen or ibuprofen, unless you were given a different pain medicine to use. Talk with your healthcare provider before using these medicines if you have chronic liver or kidney disease, or ever had a stomach ulcer or gastrointestinal bleeding, or are taking blood thinner medicines. Be careful if you are given prescription pain medicines, narcotics, or medicine for muscle spasm. They can make you sleepy and dizzy, and can affect your coordination, reflexes, and judgment. Do not drive or do work where you can injure yourself when taking them.Fall prevention Fix, remove, or replace anything that caused your fall. Make your home safe by keeping walkways clear of objects you may trip over. Use nonslip pads under rugs. Don't use small area rugs or throw rugs. Don't walk in poorly lit areas. Don't stand on chairs or wobbly ladders. 3 General Instructions [facility] Emergency Department [address] [place] [address] Phone #: ext- [phone] 04/11/2020 00:11 Patient: ANKUSH MCGEE Sex: M : 1995 Age: 24y Use caution when reaching overhead or looking upward. This position can cause a loss of balance. Be sure your shoes fit properly, have nonslip bottoms and are in good condition. Be cautious when going up and down curbs, and walking on uneven sidewalks. If your balance is poor, consider using a cane or walker. Stay as active as you can. Balance, flexibility, strength, and endurance all come from exercise. They all play a role in preventing falls. If you have pets, know where they are before you stand up or walk so you don't trip over them. Limit alcohol intake. Alcohol can cause balance problems and increase the risk of falls. Use night lights. Have your eyes tested to be sure you are seeing well, even if you already wear glasses.Follow- upFollow up with your healthcare provider, or as advised. If X-rays or CT scans were done, you will benotified if there is a change in the reading, especially if it affects treatment.Call [phone] if any of these happen: Trouble breathing Confused or difficulty arousing Fainting or loss of consciousness Rapid or very slow heart rate Seizure Difficulty with speech or vision, weakness of an arm or leg Difficulty walking or talking, loss of balance, numbness or weakness in one side of your body, or facial droopWhen to seek medical adviceCall your healthcare provider right away if any of these happen: 4 General Instructions [facility] Emergency Department [address] [place] [address] Phone #: ext- [phone] 04/11/2020 00:11 Patient: ANKUSH MCGEE Sex: M : 1995 Age: 24y Repeated mechanical falls, or unexplained falls Dizziness Severe headache Blood in vomit, stools (black or red color) [id number] [employer] [place] [address]. All rights reserved. This information is not intended as asubstitute for professional medical care. Always follow your healthcare professional's instructions.Hand SprainA sprain is a stretching or tearing of the ligaments that hold a joint together. There are no brokenbones. Sprains take 3 to 6 weeks, or longer to heal. A sprained hand may be treated with a splint orelastic wrap for support.Home care Keep your arm elevated to reduce pain and swelling. Th is is most important during the first 48 hours. Apply an ice pack over the injured area for 15 to 20 minutes every 3 to 6 hours. You should do this for the first 24 to 48 hours. You can make an ice pack by filling a plastic bag that seals at the top with ice cubes and then wrapping it with a thin towel. Continue the use of ice packs for relief of pain and swelling as needed. As the ice melts, be careful to avoid getting any wrap or splint wet. After 48 hours, apply heat (warm shower or warm bath) for 15 to 20 minutes several times a day, or alternate ice and heat. You may use mspy-agi-iijuhfr pain medicine to control pain, unless another pain medicine was prescribed. If you have chronic liver or kidney disease or ever had a stomach ulcer or gastrointestinal bleeding, talk with your healthcare provider before using these medicines. If you were given a splint or elastic wrap, wear it until your pain improves.Follow-up careFollow up with your healthcare provider, or as advised. Sometimes fractures don't show up on thefirst X-ray. Bruises and sprains can sometimes hurt as much as a fracture. These injuries can taketime to heal completely. If your symptoms don't improve or they get worse, talk with your healthcareprovider. You may need a repeat X- ray or other tests.When to seek medical adviceCall your healthcare provider right away if any of these occur: 5 General Instructions [facility] Department [address] [place] [address] Phone #: ext- [phone] 04/11/2020 00:11 - Patient: ANKUSH MCGEE Sex: M : 1995 Age: 24y Pain or swelling increases Fingers or hand becomes cold, blue, numb, or tingly [id number] [employer]. [address] [place] [address]. All rights reserved. This information is not intended as asubstitute for professional medical care. Always follow your healthcare professional's instructions. You have been given the following additional information: Mechanical Fall Hand Sprain(Electronically signed by Сергей Emery 04/11/2020 05:01) Name Value Range Interpretation Code Description Data Anahi rce(s) Supporting Document(s) ID Date Data Source [id number] 04/11/2020 12:11:[address] [facility] 1 Clinical Report - Nurses [facility] [address] [place] [address] Phone #: ext- [phone] 04/11/2020 00:11 Patient: ANKUSH MCGEE Sex: M : 1995 Age: 24yTRIAGEArrived by EMS. Historian: patient.Acuity: LEVEL 4.Alert. No acute distress.( Patient states he fell on ice prior to arrival and landed on left hand, where he had a previous injury thatsevered 3 tendons. Since falling he complains of pain, denies new numbness or tingling.).SEPSIS SCREEN: SIRS SCREEN NEGATIVE. SEPSIS SCREEN NEGATIVE. No suspected or confirmedsigns of infection present.LORENZO COMA SCORE: 15- eyes open- spontaneous (4); best verbal response- oriented (5); bestmotor response- obeys commands (6). --00:19 04/11/20 Mariposa Godfrey00:12 04/11/20. BP: 185/91. HR: 92. RR: 16. O2 saturation: 99%. Temp: 97.3 F. Pain level now 6/10.--00:19 04/11/20 Karen Godfrey Complaint: (Hand Pain). --00:19 04/11/20 Mariposa Godfrey.Weight: 149.6 kg. Height/Length: 78 inches. BMI: 38.1. --00:17 04/11/20 Mariposa Godfrey.MedicationsZyPREXA Oral, as needed. --00:15 04/11/20 Mariposa Godfrey.AllergiesNo Known Drug Allergy. --00:15 04/11/20 Mariposa Godfrey.PROBLEMS:no known problems.ADDITIONAL SURGERIES:Nasal surgery.Testicular torsion repair. --00:16 04/11/20 Mariposa Godfrey.HistorySOCIAL HX: Heavy tobacco smoker (cigarette)- 1 pack per day. Drug use: marijuana. (Nichol earliertoday). No alcohol use. He was offered HIV testing but declined. Patient education was provided. Hewas offered hepatitis C testing but declined. Patient education was provided. He has not traveled [place]Infectious disease exposure: No infectious disease exposure. The patient was not exposed to Coronavirus. 2 Clinical Report - Nurses [facility] [address] [place] [address] Phone #: [phone] 04/11/2020 00:11 Patient: ANKUSH MCGEE Sex: M : 1995 Age: 24y Patient is a known carrier of MRSA. Precautions taken. Patient is not a known carrier of tuberculosis, hepatitis, HIV, VRE or CRE. SELF HARM ASSESSMENT: Self harm assessment was performed. The patient answered "no" to the question(s) "Have you recently felt down, depressed, or hopeless?" and "Do you have thoughts of harming or killing yourself?". ABUSE ASSESSMENT: Abuse assessment. The patient had positive responses to the question(s) "Do you feel safe in your home?" and "Are you afraid to go home?". Abuse denied. No suspicion of abuse. No report of abuse. NUTRITIONAL RISK ASSESSMENT: The nutritional risk assessment revealed no deficiencies. FUNCTIONAL ASSESSMENT: Functional assessment: no impairments noted. LEARNING NEEDS ASSESSMENT: The learning needs assessment revealed no barriers. FALL RISK ASSESSMENT: Fall risk assessment completed. No risk factors identified. SKIN INTEGRITY ASSESSMENT: Skin integrity risk assessment completed. No skin integrity risk identified. --00:19 04/11/20 Mariposa Godfrey.PHYSICAL ASSESSMENTAmbulatory to room.GENERAL / NEURO / PSYCH: Oriented X 4. Alert. Appears in no acute distress.EXTREMITIES: Extremities exhibit normal ROM. Neuro-vascular status intact to the extremity. No upperextremity edema. Left hand: tenderness (scar present from previous injury).SKIN: Skin intact. Skin is warm and dry. --00:34 04/11/20 Mariposa Godfrey.NURSING PROGRESS NOTESReassurance given. Two patient identifiers checked. Call light placed in reach. Side rails up x 2. Bedplaced in lowest position. Brakes of bed on. Patient ready for evaluation- ED physician notified. --00: Epifanio Mariposa 00:31 04/11/20. Patient walked back from radiology with radioisotope technologist. --00:36 04/11/20 La Maldonado R.N. 00:37 04/11/2020 Motrin 800 mg PO X1 dose: 800 mg (NOW x1) was refused by patient. --00:37 04/11/20 La Maldonado R.N.DISPOSITION / DISCHARGE Lorenzo Coma Scale: 15- eyes open- spontaneous (4); best verbal response- oriented (5); best motor response- obeys commands (6). Condition at departure: unchanged. No learning barriers present. Discharge instructions provided and reviewed with the patient. Reviewed ice and elevation instructions. 3 Clinical Report - Nurses [facility] [address] [place] [address] Phone #: ext- [phone] 04/11/2020 00:11 Patient: ANKUSH MCGEE Sex: M : 1995 Age: 24y Reviewed referral to family practice for followup. Patient verbalized understanding. Written instructions provided in C[place]. The patient was discharged home. He left ambulatory and via taxi. --01:02 04/11/20 Georgi Maldonado RN 01:00 04/11/20. BP: 152/102 (regular adult cuff) taken on the right arm, via an automated monitor, while lying. ED physician notified. MAP: 118. HR: 88 (regular, normal rate and strong). RR: 18 (regular, unlabored and normal). O2 saturation: 95% on room air. Temp: 97.4 F (oral). Pain level now: 03/30. --01:02 04/11/20 Georgi Maldonado RN Departure time: 01:02 04/11/2020. --01:02 04/11/20 Georgi Maldonado RN.Locked/Released at 04/11/2020 01:03 by Georgi Maldonado RN Name Value Range Interpretation Code Description Data Anahi rce(s) Supporting Document(s) ID Date Data Source [id number] 04/11/2020 12:11:[address] [facility] 1 Clinical Report - Physicians/Mid Levels [facility] [address] [place] [address] Phone #: ext- [phone] 04/11/2020 00:11 Patient: ANKUSH MCGEE Sex: M : 1995 Age: 24y Time Seen: 00:14 04/11/2020; initial patient contact, initial documentation. Arrived- By ambulance. Historian- patient and EMS personnel. Disposition decision: 00:52 04/11/2020.HISTORY OF PRESENT ILLNESS Chief Complaint: Injury to the left hand. The injury happened just prior to arrival. Fell: Occurred on a street. ( Patient states that he was walking on the side walk and he lost his balance and fell. he tried t brace his fall with the left hand. denies any other injury. he had tendon laceration on the right hand in January that was not repaired).REVIEW OF SYSTEMSNo swelling, tingling, numbness, weakness or foreign body. No skin laceration. All other systemsreviewed and are negative.PAST HISTORYSee nurses notes. Problems: no known problems. Medications: ZyPREXA Oral, as needed. Allergies: No Known Drug Allergy.SOCIAL HISTORYCurrent every day heavy tobacco smoker (cigarette)- 1 pack per day. Drug use: marijuana. Recently useddrugs just prior to arrival. No alcohol use.ADDITIONAL NOTESThe nursing notes have been reviewed.PHYSICAL EXAMVital Signs: 04/11/2020 00:12 BP: 185/91. MAP: 122. HR: 92. RR: 16. O2 saturation: 99%. Temp: 97.3 F.Oxygen saturation normal.Appearance: Alert. Oriented X3. No acute distress.Extremities: Dorsal left hand: mild tenderness of the distal aspect of the dorsal hand. Neurovascular intactdistally. No erythema, swelling, laceration, abrasion or ecchymosis. No puncture wound, foreign body ordeformity. No limitation of exten brian. No bony tenderness. No signs of infection present. (well healedscar on the dorsum of the left hand). No wrist injury. Extremities otherwise negative.Neuro, Vascular and Tendons: Vascular status intact. Sensation intact. Motor intact. Tendon function 2 Clinical Report - Physicians/Mid Levels [facility] [address] [place] [address] Phone #: ext- [phone] 04/11/2020 00:11 Patient: ANKUSH MCGEE Sex: M : 1995 Age: 24y intact.LABS, X-RAYS, AND EKGLt Hand X-ray: No fracture. Normal alignment. No bony lesion, air in the soft tissue or foreign body.Soft tissues normal. Joint spaces normal. Views: AP, lateral and oblique. Technique: good. TheX-rays were independently viewed by me and interpreted contemporaneously by me. Interpretation time:00:47 04/11/2020.PROGRESS AND PROCEDURESCourse of Care: 00:47 04/11/20. Patient refused tylenol. Xray of the left hand did not show any fracture.will discharge the patient home. Patient counseled in person regarding the patient's stable condition, test results, diagnosis and need for follow-up. Patient agrees with plan of care. 00:51. Disposition: Condition: good and stable.CLINICAL IMPRESSION Sprain of the metacarpophalangeal joint of the left middle finger, ring finger and little finger. Fall on the same level by slipping.INSTRUCTIONS Apply ice. Elevate affected areas above chest level. Wear elastic wrap as directed. (xr of the left hand did not show any farcture or dislocation. take motrin for pain). Your Current Medications: Your current home medications have been reviewed. CONTINUE TAKING THE FOLLOWING MEDICATIONS: ZyPREXA Oral : prn. Follow-up: Follow up with your healthcare provider. Screening today revealed the patient's blood pressure to be in the hypertensive stage 2 range. The patient should follow up with a primary care provider for blood pressure management. Follow-up with: [facility], , , [address] [place], [address] Follow up in one week if not better. Reason for referral: evaluation. 3 Clinical Report - Physicians/Mid Levels [facility] [address] [place] [address] Phone #: ext- [phone] 04/11/2020 00:11 Patient: ANKUSH MCGEE Sex: M : 1995 Age: 24y(Electronically signed by Сергей Emery 04/11/2020 05:01) Name Value Range Interpretation Code Description Data Anahi rce(s) Supporting Document(s) ID Date Data Source [id number] 03/30/2020 05:24:12 PM [facility] XR HAND 3 OR MORE VIEWS [id number] RESUL TInterpreted by:Tyrone Trevizo [facility] history: Left wrist and hand painViews: 4 views left wrist and 4 views left handIndication: Check for sources of pain at left wrist and handFindings: Patient has normal osseous anatomy of the distal radius and ulna. Ulnar variance is neutral. Proximal and distal carpal rows have normal osseous anatomy and alignment. CMC joints and metacarpals of digits 1 through 5 appear normal. The MCP joints of all 5 fingers are preserved. No acute bony trauma to the phalanges of all 5 digits is noted. There is good preservation of interphalangeal joint spaces. No evidence of soft tissue swelling.Impression: Normal-appearing left wrist and hand.This document has been electronically signed by Tyrone Trevizo MD on 03/30/2020 5:22 PM Name Value Range Interpretation Code Description Data Anahi rce(s) Supporting Document(s) ID Date Data Source [id number] 03/30/2020 05:23:42 PM [facility] XR WRIST 3 OR MORE VIEWS [id number] RESU LTInterpreted by:JAMIA Brookslinical history: Left wrist and hand painViews: 4 views left wrist and 4 views left handIndication: Check for sources of pain at left wrist and handFindings: Patient has normal osseous anatomy of the distal radius and ulna. Ulnar variance is neutral. Proximal and distal carpal rows have normal osseous anatomy and alignment. CMC joints and metacarpals of digits 1 through 5 appear normal. The MCP joints of all 5 fingers are preserved. No acute bony trauma to the phalanges of all 5 digits is noted. There is good preservation of interphalangeal joint spaces. No evidence of soft tissue swelling.Impression: Normal-appearing left wrist and hand.This document has been electronically signed by Tyrone Trevizo MD on 03/30/2020 5:21 PM Name Value Range Interpretation Code Description Data Anahi rce(s) Supporting Document(s) ID Date Data Source [id number] 03/30/2020 05:18:49 PM [facility] Name Value Range Interpretation Code Description Data Anahi rce(s) Supporting Document(s) Progress Note [facility] XFQYAp6dHcQOVhHg96/RIGotPLNlu5ReDUdlWUq7PPiuUAThT1PeWKZ2bN7dAZK3NPxRZaPrUwYaZsKq [facility] [file] GENpZw7vHXRTOq6+AEdpaZGqsSlfPBERYiA4YRNiPRzpBDEHIw2J ID Date Data Source [id number] 02/27/2020 01:26:00 AM EST [facility] Name Value Range Interpretation Code Description Data Anahi rce(s) Supporting Document(s) SARS-CoV-2 (COVID 19) NEGATIVE - SARS-CoV-2 (COVID19) [facility] This lab was ordered by [facility] a nd reported by [facility]. ID Date Data Source [id number] 02/17/2020 08:34:37 AM EST [facility] Name Value Range Interpretation Code Description Data Anahi rce(s) Supporting Document(s) Progress Note [facility] KZDQPp7nRkHHZnUc33/EMWgsMSHxk6YvGXrzILs7WUmcIMTuX8TcUCV8uK4iQSZ9WGlQHlNtItVkHdQn lbm [file] d1XTPyGSpyDBB1AxWgHSKiYGSbSW6oSKLJTz6+TAtuoUMguVdqUXLYYnawAjBCObExGN5WTDz= ID Date Data Source [id number] 02/16/2020 05:12:55 PM [facility] Name Value Range Interpretation Code Description Data Anahi rce(s) Supporting Document(s) Progress Note [facility] WHQGPl9lDuLAYcUk57/JMEfrOFOkx4CiEJtmPMm3AQsxSWQiB9AuJTC2aA2zGQT3PZnQRgOnJcRjKpD3 lbm [file] AgICAgICAgICAgICAgICAgICAgICAgICAgICAgICAgICAgICAgICAgICAgICAgICAgICAgICAgICAgIC NzFFYqEPWoWJBkIISrIJ3YQTNxCDDhMRDsKQYyFXMu ICAgICAgICAgICAgICAgICAgICAgICAgICAgICAgICAgICAgICAgICAgICAgICAgICAgICAgICAgICAg NQViJAHjOMXmUSRbWNDdVPSzAWDxHRNcLY4JFQPmRTCvNRPzXINxWJQdDTBsMEVpABEcQTObTUWjOYNd ICAgICAgICAgICAgICAgICAgICAgICAgICAgICAgIC ToOKBpWUHyXUMpFCBaNCVbCTSlDSTfETVfPMZwUHRpIBWiKR6VCTTkCBYoEGWqZMGgVFOtQAAuYFBqCY AgICAgICAgICAgICAgICAgICAgICAgICAgICAgICAgICAgICAgICAgICAgICAgICAgICAgICAgICAgIC AuHXRvPUCvZDJqBMZvHTUyQQ1XNAEhNFXuEDZvKXRz ICAgICAgICAgICAgICAgICAgICAgICAgICAgICAgICAgICAgICAgICAgICAgICAgICAgICAgICAgICAg RFNiKSViSHEfOMPeZCKaCKCiAWXfRYVsZOBxOB1SYGQhVQEnYTWcAEIzLJFwDYFcLHEjXROrAMAoTKRe ICAgICAgICAgICAgICAgICAgICAgICAgICAgICAgIC QxDWIyIBJkCAFjKNSjVFRcOTSwBGNjYWVrJRYuDIPkIBIdYJRuVZ2KLLKpLKGjWZGaFEKjKULyDVPhGO AgICAgICAgICAgICAgICAgICAgICAgICAgICAgICAgICAgICAgICAgICAgICAgICAgICAgICAgICAgIC XcWFNwXPXoWZQtLNCsZSOtBNJiYC0WEPNkWXDyTLTg ICAgICAgICAgICAgICAgICAgICAgICAgICAgICAgICAgICAgICAgICAgICAgICAgICAgICAgICAgICAg JWObGDZuFXQqHJBhAWCrPXZsOGWnIRVaRORvGVLzZL4KJDJzFGAxKHGnVGXcEQWfQTOkPDOxPWJmXTSf ICAgICAgICAgICAgICAgICAgICAgICAgICAgICAgIC YwCEDfSAGyTBVwHVCyVPBcUUWeVZNhUBWuCLMdVHZdNKCcUEMhJAUwDW7TZAUzMGJqUJEuGYCnBXUfDF AgICAgICAgICAgICAgICAgICAgICAgICAgICAgICAgICAgICAgICAgICAgICAgICAgICAgICAgICAgIC IdVRSuHKExLCQmTHPoDDXvXUNoPIDmHT9GTC13hAHv f4Y7DRIrTX5ruhl/Tg2VUXnyiaSzqUSuDE3OWzMsLB5qtq6DYnFrUI8erv2VDDzPZbGwJ5B2nPFmGEGz UVNXUkWwH97hLMrxBs73CKxzNWKuHbJlXDb1Bq5YXvCwL1cgWTRwAtE7UZHiEwFuEMzaUM1Gx7FneESf DQo+Kx5VFP0ie2BcGRniTOJdLP7mig8YIAjRTlYgZ3 PbxzF8SRM6KZNeMe8TFAOwWZAbkPRvENGrCPYWNmHlV8SxtR38FBJSJh0+JXqasxQpXeiOHrM1ZQPbm9 IqADz7PU6TDQHmUNb8xQLpIRAsM3Hnb1UcMh38QSLyYtbuHxVvOGFSNAQbbhLbU4GkUPYWGtIjsDZdMn 2aOC6kZDIoUDI7FrFaYLAEJE8IBBFxPJOpcCTxSDNt BLUBZB9WHOzkYOZ4LKIupjUabYFbGLseNG1ZZYVbtuEkDRLnGOLXGRc+Ve5JQQ0gr8SeKAniXcLvZD3d bh7PBEySNfNjB2O2aQCdC2G2ICivLg4HSRIhFDJpYXRwRVIZENbtLM3DJQ2yutV7JS3WoPMpFVTzQFUv rUAfESu3X82xeGUjUXsjXI3TKPE+Daniel+St3PQZOrJW DsPMPzHhIbZVURGeTmP9WgH9RYz2CqF9DuMV67kMslooUxLQkhZV8MXK4gETRcUYRDFP2RfWNqgI7oll VlDGYtRSIUVqBbD10iqFRlAIMyNKGiIBZtMw5FGZXgG0QcumQnyJeioiRaNIGvVEOANK3EFYcvaoJlvR KomRhcFR79iTrvZX2NLe0LEoXrSD7jfh8QuHTyQp0L OWVaWm2TEENeXKWjIICtICU4QDIjLzOzTLvzFVKqGAFcSQY2MKHrUKRmUU8FPcIgYSKsAFM6DhznZXCx PPOqze0HBDVtZHEnNfM6UOCfMRDlPRGdUHcfQPKeHKXwKTI7RBLnSTIoHK2CYtZyYVXaNSZ5LjcvGXRf CEUbbe9BMLWvNTYlYGh1IrYjAWDtCEKdIJluYVZgHB KqDSRdSYNnHWXuHB6ZSyUwYUGaRGYqKdbvIINsLYKcdz9EVTGyKNMtUkBsWSZuGGUpIEIzFNisRPHwAC Y6VbE3HJKeCJVcPW7DWvBxLOZhVGD2GkkaZEJmPEVtwk6XTPHgNUCyQKC4AEHbTSGfSJXzILilWRPcHW Y9FRF5XRWyARFoPA9PHaSjSXOxNHH8HWwgUOFpDWZc ob2NXBCrCDOgHcX4KDOfEQEgXFYoAAzmBPGeNDV7BfO4JILnSMWqWW8DUgIoJVnnEJHQZqk5UUmpB2n4 WQMfTr5GN0Agg6XeWUFfAFYCNAxnLT7wvhLcPYQyVg9YJ8bAIyomCjL1YwTpHvEoMPv1PDA6EzXpXzOm JDXuXyXcPHQhKH4bGFRnZXtzXKWwFAD9FUToMbOqPe MqKyM3BHSdOfC3ZbH5WxWqUX7FEm5ICoD6LAF3xDTqYt1CVnj5Ug9EEKNYJ1DKPf== ID Date Data Source [id number] 02/16/2020 08:15:00 AM EST [facility] Name Value Range Interpretation Code Description Data Anahi rce(s) Supporting Document(s) SARS coronavirus 2 RNA [Presence] in Res piratory specimen by TAISHA with probe detection [facility] This lab was ordered by [facility] a nd reported by [facility]. ID Date Data Source [id number] 02/09/2020 02:50:00 PM EST [facility] Name Value Range Interpretation Code Description Data Anahi rce(s) Supporting Document(s) SARS coronavirus 2 RNA [facility] This lab was ordered by [facility] and reported by [facility]. ID Date Data Source [id number] 02/09/2020 02:50:00 PM EST [facility]) Name Value Range Interpretation Code Description Data Anahi rce(s) Supporting Document(s) ID Date Data Source [id number] 01/15/2020 08:46:00 AM EST [facility] Name Value Range Interpretation Code Description Data Anahi rce(s) Supporting Document(s) Progress Note [facility] TUXRZz2zLhVAFtDn16/QSVrsHWCcg8InLMooRCa4DXwhBWVfC7DpNCA9iD7cMDG6APbHPqLdQhNpDMN5 [facility] [file] k0TCf5OZouAZIVOm8K ID Date Data Source [id number] 12/02/2019 04:44:07 PM EDT [facility] Name Value Range Interpretation Code Description Data Anahi rce(s) Supporting Document(s) Discharge Summary [facility] TAETAs8uDaGWCpIj40/HMKejFFIoq5HpIZjtLBe4FJakCPAcP7VrESJ7uU5rIKY9RQjNNoVmIrTiTMB3 lbm [file] pricing director+EHGeuTZzKVVeJqtCrpDa6bN7onCNvfV01HN7eU3TkeSYC8+sV4ck3AnBA+78ad3c9gWtO7kXLIrJ [file] AgICAgICAgICAgICAgICAgICAgICAgICAgICAgICAgICAgICAgICAgICAgICAgICAgICAgICAgICAgIC AgICAgICAgICANCiAgICAgICAgICAgICAgICAgICAg ICAgICAgICAgICAgICAgICAgICAgICAgICAgICAgICAgICAgICAgICAgICAgICAgICAgICAgICAgICAg ICAgICAgICAgICAgICAgICAgICANCiAgICAgICAgICAgICAgICAgICAgICAgICAgICAgICAgICAgICAg ICAgICAgICAgICAgICAgICAgICAgICAgICAgICAgIC AgICAgICAgICAgICAgICAgICAgICAgICAgICAgICANCiAgICAgICAgICAgICAgICAgICAgICAgICAgIC AgICAgICAgICAgICAgICAgICAgICAgICAgICAgICAgICAgICAgICAgICAgICAgICAgICAgICAgICAgIC AgICAgICAgICAgICANCiAgICAgICAgICAgICAgICAg ICAgICAgICAgICAgICAgICAgICAgICAgICAgICAgICAgICAgICAgICAgICAgICAgICAgICAgICAgICAg ICAgICAgICAgICAgICAgICAgICAgICANCiAgICAgICAgICAgICAgICAgICAgICAgICAgICAgICAgICAg ICAgICAgICAgICAgICAgICAgICAgICAgICAgICAgIC AgICAgICAgICAgICAgICAgICAgICAgICAgICAgICAgICANCiAgICAgICAgICAgICAgICAgICAgICAgIC AgICAgICAgICAgICAgICAgICAgICAgICAgICAgICAgICAgICAgICAgICAgICAgICAgICAgICAgICAgIC AgICAgICAgICAgICAgICANCiAgICAgICAgICAgICAg ICAgICAgICAgICAgICAgICAgICAgICAgICAgICAgICAgICAgICAgICAgICAgICAgICAgICAgICAgICAg ICAgICAgICAgICAgICAgICAgICAgICAgICANCiAgICAgICAgICAgICAgICAgICAgICAgICAgICAgICAg ICAgICAgICAgICAgICAgICAgICAgICAgICAgICAgIC AgICAgICAgICAgICAgICAgICAgICAgICAgICAgICAgICAgICANCiAgICAgICAgICAgICAgICAgICAgIC AgICAgICAgICAgICAgICAgICAgICAgICAgICAgICAgICAgICAgICAgICAgICAgICAgICAgICAgICAgIC AgICAgICAgICAgICAgICAgICANCjw/mNVxQ3cmwMFf ayO9C4zmWr1DTf0DAP7fj5SgALMaPZfxnlPvBfvBDiYuDYVhAgnWRxj7JHelYN5SwZZwI9XnV4XwYLhu MB3YDBYlQXDfgTZxGMUzMDHvIcH6NUYrTUseME1ZzXIvJQkrRCUqCKFnHpDlYLYcVLYvTBFiSEDrVRKH TJPlVZAeRmJsLGIyIAIeEAfpZQFRQOR8ESGyKrLwDR EoOOLtZqSgOIENEF3BWjXxR9BicF69XUUcUUz+Hf4PMK6zs7RlYAe1CYMrQY8yxq4INOsLAdAeQ7Pdym N2RGF0UEKsDw4SPLFtOGPzgIZ5RWUlQPVICmBlS7WplX75GDIMYa7+ALstatElIvpCShS9DMKmc0TqXX s1VO8CTQVoHSf6qKDxBOioB5mkrogeRZG9dI6djlcj VayrRSEovZzsAQzhQG6uKC7XHBD1ODSeCyW0HdNzSnFeFMz9SrPoZD1uXDelIB8KWWB5MQfgRMWxFVRw T0wDPuSqFUJzAgFjjNutMH5MLaWlB2JtkxWkgWH8DQZbQVFXHm2+XYxhmvHyXmgKRmL0ENSwr5IzGRq1 OX9EKKSvXHzjBP7QURWhmD0zXGypCA6ULiE2NxQbQR MVQjFkE73fbMWnTAc3Z9XrAkIgFEHuUtwlSCByMGrbGvUpKORkPkYrCSjpQU3+ID4+VOoxAJ9ONDuyze RcJXHgRy0MFLEhRFPjLP2iBTTySFSjL8W5bNtaBUXXNqAkW3ygyavnBP1aEPHoE879xPnnsbXpTQY1TM HoSn1DCZSrTPL9UZZgcYAeIEHmYWAESRfjML8DoMEm EJV0pN5tSNsyFODcITItR5aRAbDxzUflSJ87gOkersHwcMLfNLc+Xt9UJM0dv8PuTWs6bxIvQLelVOG6 JYfePBJrJDHmVFSjLPJ0JHV5PEZIYoHyNAQnIMGbPKsgPLUrWSSjes2JYEQtMXU2ZrJ6LRRtXXCvLTKu KVtiRPNqUAR9IuA4IUOmFOZmFC3TVmSlLQOeKEIyQF lbLRRpDYUxcj8NQYAaVEAyMFnyAXXkJLArKRCkSQdpDYTcSDJ5LOM7DFFgPOJhCE4UQzBsIJZlRIvmTa ZbNDEoAUGiny2QPQCjRWJrOZI7JBAoKSPyCYGuTGelLUWfPIXjYjYgAWNgTJRdLL2JSaJbPPHuCAH3PN GjQCHpCFAqrt9JRGDjUVLgXOf0ScDeBMJpIGImPBen UPRlPTN4PGRcFUXdKFBiUV3KQwFbXDVoBUx6MCCqQZMoTZWybg1QXODsWXDnZQA9HxCbZUMqBACqXCrj XQPnKEIdSWGkVXXvLSLqIW1BKrLzZWKtVrZzWAXoIBTdQVMywd9YQAYqEGSzIvz0VZOnSFKfVCLlWVlg MYFmXNA9ONt1SGFxDQPuYS7KUhTxDTKkUeX6ZZrbPH HaHGLnch1ADPUkBFJbPWr5JRYnFTUiJSTqOWdsKMElVCP7EHA0RBBfVPMnGJ9ZCkCiIXFeGbTwDeAhMU LgXDMpyi5ZDBLrCKZxHghlPYHeTZYjMRRxVVemFELwFGC4CLQnSJOrJFTtTQ7FYlYnTBAoWqkzHRRjTX MpLZPyiy2TYEIjTJNwYEU9VMObPIIxZXTfFXqgYJGb QHC0PZgtALWoHJTdRA9OQxImPFKhHcs8JxUnTJYwWMLxeg8GXKRzVKBeDVQhPyItHTGcFTFpENopVCZg BAQ9CLCsQRAaUZIhDX8AGqTiCMYpCFFrOIVeARCxOQUvrp7EHLOkEEL3HSDfVmZuUDJkMNIyTDtcCVWi WVIhRpWaDFEaNRYuYR6ASvPuNBTgTOL1MuSlRZCcRC Hxuh4EIPPjWQU2YsNsMqTkIGRuHWFaBMqhBNTxWKPrIDKhVKDqRRTlEQ5HSeShGGIrPJFfAYihRFTbSN Qgzr8JIFCtEXQ4HwOnNaJwJHBoIWAySJtcSYYeASO3DqkpBEYbKCNvHD3AItXsTBNvFIC9FqJsXWFaQD Uoxz4JCAOoVMC1QUt0VkLeAVAaFFJoORwgHOUfHVH6 UeGlZZOyIETyME4AMtZuLPVgQYk5KuEiOYTfBTJvsl4HZXJyVQV9PVJ6EZEvWECoEYJbHLpcURKzKIGb Fol9YUWtZMHpKJ5CQbMuJTFmQyI1LomlLGLwYIUjeu2BPAXnKAH8VMm7RXBlNBLtCSZlPCxtTJOlNUJe SShsXXOsTZGbGA5HQbTuFDDqWoVsDphmKSSxTLRizd 9JQYLoZOA5TvS5AVJoCZMhEWPaSJlmKYMaRVLsQqF9IAEmYSPaLH1HEgXqNGAnYeM4VCQoDWKtOQMogx 8SHUZwLTD7PkdwFgBlZXTsGKStLRsdWONxKUI9OIZ0RLViHQLwNQ4SUcKfGREaHhQ8XUbkTONzYAHmne 4WWZYwKWD2LEY4XNRuJUFcESQrDYt6lbJzySYxTTj4 ZE7ZE5PbvdCkKGfNZf9Dy075NXN5SYSwYq8CA8lmBu4mHENnIZFLQl6EMTr5CJnuBbnxTYU1WrLuLYV6 MWNqWSkcGSJ7JiD4VcSbDZA+HBrsN5TcEoGhRPucNHNdFDnxVaV4N8SqHCnrOXNhRbJ6QP2bVQUUKz7+ YWcbiVNljJluAOMZOoA3EStqJScvQFPJZe0C ID Date Data Source [id number] 12/01/2019 01:12:54 PM T [facility] Name Value Range Interpretation Code Description Data Anahi rce(s) Supporting Document(s) Albumin [Mass/volume] in Serum or Plasma by Bromocresol green (BCG) dye binding method 4.0 g/dL 3[facility] Bil[facility].total [Mass/volume] in Serum or Plasma 0.3 mg/dL <1.2 [facility] Calcium [Mass/volume] in Serum or Plasma 9.2 mg/dL 8.6-10.0 [facility] Chloride [Moles/volume] in Serum or Plasma 103 mmol/L 98-107 [facility] Creatinine [Mass/volume] in Serum or Plasma 0.82 mg/dL 0.70-1.20 [facility] Glucose [Mass/volume] in Serum or Plasma 97 mg/dL 70-140 [facility] Alkaline phosphatase [Enzymatic activity/volume] in Serum or Plasma 81 U/L 40-129 [facility] Potassium [Moles/volume] in Serum or Plasma 4.1 mmol/L 3.4-5.1 [facility] Protein [Mass/volume] in Serum or Plasma 6.9 g/dL 6.4-8.3 [facility] Sodium [Moles/volume] in Serum or Plasma 139 mmol/L 136-145 [facility] Aspartate aminotransferase [Enzymatic activity/volume] in Serum or Plasma 37 U/L <40 [facility] Urea nitrogen [Mass/volume] in Serum or Plasma 9 mg/dL 6-20 [facility] Osmolality of Serum or Plasma by calculation 287 mosm/kg 275-300 [facility] Creatinine/Urea nitrogen [Mass Ratio] in Serum or Plasma 11 [facility] Bicarbonate [Moles/volume] in Serum 25 mmol/L 22-29 [facility] Alanine aminotransferase [Enzymatic activity/volume] in Seru m or Plasma 55 U/L <41 H [facility] Anion gap 3 in Serum or Plasma 11 mmol/L 8-15 [facility] Glomerular filtration rate/1.73 sq M pre dicted among non-blacks [Volume Rate/Area] in Serum or Plasma by Creatinine-based formula (MDRD) >6 0 [facility] Glomerular filtration rate/1.73 sq M pre dicted among blacks [Volume Rate/Area] in Serum or Plasma by Creatinine-based formula (MDRD) >60 [facility] ID Date Data Source [id number] 12/01/2019 03:38:28 PM EDT [facility] Name Value Range Interpretation Code Description Data Anahi rce(s) Supporting Document(s) Calcidiol [Mass/volume] in Serum or Plasma 29 ng/mL >30 L [facility] ID Date Data Source [id number] 11/27/2019 02:51:57 PM EDT [facility] Name Value Range Interpretation Code Description Data Anahi rce(s) Supporting Document(s) History and Physical [facility] EUDPGw5fCuXHYuZj07/TDXtqSMOze6CdTPveJAa1FJsaSCUzG8QbEPI2cS8oOZK6TZfSHiKiZwOwBGO6 lbm [file] +SIidgDdZvrcptrMkq7RtlsRc8NkifZXfEa/OM/+WOOD PATTERNMAKER APPRENTICE [file] ICAgICAgICAgICAgICAgICAgICAgICAgICAgICAgIC AgICAgICAgICAgICAgICAgICAgICAgICAgICAgICAgICAgICAgICAgICAgICAgICAgICAgICAgICAgIC YmXMKbYQ9JHWFqEGEkVBCbVOMpQZSyCEXwFLCgKIHrJANvHCCaANVkTOQvTHXzONVlCUIpEAXsWOWlNZ AgICAgICAgICAgICAgICAgICAgICAgICAgICAgICAg JVLjQIUfDBItYTOlJCIhMW5NWBPhVAYdDCKyYXXvCMUzDMTrOMPeEQYxVTHxRVPoFFXfCEHcYPQjWYTv JHLwHQDkLKBoNJRmVGEsHGDhILNzDPFkDDPuSEUoKXZiFADmYLQnQKJvIXEqOEQdMIJdHGMnIJAwLK2S ICAgICAgICAgICAgICAgICAgICAgICAgICAgICAgIC AgICAgICAgICAgICAgICAgICAgICAgICAgICAgICAgICAgICAgICAgICAgICAgICAgICAgICAgICAgIC WwBOSaJPTsPK1KKFZtCSRbGLXxBAZxVVCbSGHmBARdLLFhCLAhQQToHLEaYLKnXGHePHPxGUZnQUJkBK AgICAgICAgICAgICAgICAgICAgICAgICAgICAgICAg EASrTLNsCRNuVAGrIRQyUHUkNM0HFNGeACReIBGuJTFhNSUuPDVpBWPdHYMzQPSvEZDkTQGiBJSnXGMo ICAgICAgICAgICAgICAgICAgICAgICAgICAgICAgICAgICAgICAgICAgICAgICAgICAgICAgICAgICAg YJ8WPBSfKZKvHBAlPWNjYRHpJSKsGLZmPIDeGPXqNM AgICAgICAgICAgICAgICAgICAgICAgICAgICAgICAgICAgICAgICAgICAgICAgICAgICAgICAgICAgIC AlHLVdEALrLNHnDO0FIAXiGEVbQJVeQAOzPDUqRVCoIIBpPVQjKRQvTBXiQIRnZEJsOZChUBVvDSWpGD AgICAgICAgICAgICAgICAgICAgICAgICAgICAgICAg LHCeKWUkYYItWCSbEYPiKJDdZUMcZX5JHVLpZNXpBZJaHTKfCSZqJXUwTONzDYAcSCEjPJAaSIAyPCGh ICAgICAgICAgICAgICAgICAgICAgICAgICAgICAgICAgICAgICAgICAgICAgICAgICAgICAgICAgICAg ZFFjLA6WNI50jIVok5G0ZMPqQM2mctl/Hv1JHHzkcc EbiBIoMV0PNeIvXQ8brd3IVlTbCB7lzi0QLEnNViKfT6Z2nEIwEOHfZVPFCsTdI73yEExlZw88ZPfxJQ EoVoRyMPo0Li1SRwNcY2zwQHVaLrG2BQJkGdM5FJIxMrJ4WQUaVmVwDSGdBFLqNZNaWQSLUXL6NYVdRc TfZzQkGATpASmdIMNJFPPfZIAgSpFcPJgyCG4Kr2Tt vCU5GOp+Qb0CFM2ub4OxUQo9DbRmSQ6ois7UFHjULmCvE1EtdxZ8SOAhURStCn8MWCUcQRCskCR1TsWm FFMOZnGtN3OhnA41ZWAPFb8+ZQbwbiYnRtcWGhXpLFHfx1FqVEq8LO8IZHVmUUz6gVCpJBYTTMA9JT93 q1yzvWFBbLCwMYKKAFQetOGrCM12RaFtHqMeIDB7Dv TzVW2dLCxrEV8XVAT7TYotGXNvPHZtP4aOEhDsEVMmPxClnLquUU3GTxUlE2YjlmSkyLM2XjQqZCBKHa 4+UOhqlxLuWesJSuP8QVElu0GqILm8FN4FXQIpZLzxMO2KZVUnaH7uTYcbHR9EUtZ4YXBvPLMTXcJiF9 0gjDJdZPn6Z4AkKfWwDQEvYblmRJOjRJnxDlGqOKFn WyBdDQogID4+ID4+GRowCM9QSIzzsuCmDWGmAb5GUTFpLGHsKM3wKESnGSSwX1Z6iCamLDEWFgZwS6en hoaoLV8wCUIkI446aNdngqCjZGAwRAMxVv2OLUQsYDA5ISYgyDEzOCKdAQSDOMndQD8BiSPoTVO6cZ0u FKgoUKXkNGGnP5cAVsExsBqhLQ35zEayawMgqSKbMP o+Eu4STF1wg1FoILn7zqTgXXuyUMT8YVqpJFBaUKMhWDHtFGM1DYG4VIXLSjZqSKXsYCAuQRgwNUNmED Elvx1CEDQwZPG5Jpo5DjNnSSZmAPOkPKagHAPjJFP4MOE7WAEqNHZdNJ2CFnFcWDYyUQBpZYjvMLJoUM Cldw5DRREzIUUbULA9VPSbFOPnARKuQQgjCIEyFDK1 MTnpNIXfMXPaGP1DSjJvLLDfJDkgAqByGXFgEBVhvl9EUGElNCVqIcRfLTBwCKOdMBPlLQybOZIdMQDt PrK3RTHnGJBnYA5EVeOmIZNlIXF7KGbcJTWvMSSfic6XJFXyGXUrYeBcCLPgGFJiCGVyZTbcOABkSMKl ETM3AJHrHSKjCP6JXsNnTWZzNQe4XVVaYFYlBPXqnd 9DFUHxPYRgPcm0VLIfARMsBCXaBQinUHZuUBJxPVL4CMMiGHZtWZ3BBsMdFIVjZdF8VXYdNTFoEWIcgt 0JZPIoZDQfJXBiVeEkCZEhCMUtGIuuOMGfMZW1RfIpFCIvTFXzNP0IHjBgGIUaUjdvHCIvIRCbHQMhof 8EYVRvJXKnCTTvWwJxHINgCZWyOBfiIFPzMWUnEyV0 MYFbEMAyVE0ZSdTzXUXrUrP9ChOeJWMcHWXjrf1SHHTePFAzVvY2MVAkUGGnCUBgSGftFSHiVKSwAIw2 VXDjYPSiET6UHjUzSIBqHgF4VsRsIWPuJQFdqc7GBWPgGEUxHJwoPJErPXEbCYZdZPobJHSpJCU5UAZq URNfCSBwCT8MMrTxBSUiHeYhUQvsFVGvGPRifp9UCP HoLHZ5VpI5IISxZVRaPRCpTNzgLARmVTX9DUFeRMEzIDScAB6FMjXmGKSnEImpUmVgPUUqFHMmbh7VAM ZsXYN2QqH0RSOfULFlWQXnQDpxBTFbZJO4SEK3YQSrVUNqWP4OJqPtASHfFGriFVWtRASgEWVfdj9VOF PdNIR0IWFwZNHyGPJqHWRxFOljQBNpWNR6VqV5UXYx MODvOH3BUjCpFZWgONk8XDebLSZuVXRtco6EEXAbFBK9PDm5VuBsTCTdFPZeLAuoKHFcYLUrNQM2JSHf RGQgMQ6NLtEkNLRwYSV9VJLnRQSiGDNwla1RMSStIWC6TWEgIzFdPGTpULJvDHyjDZFsMMS1QRMwQDMy MCDaLN3VGrMoSRMrOQX1MuToLBJnPEGbah3DEFXmDB F7FFuvDmXkVFHlUYVuAIqwQJTnPLC4DGJ1UFUdXJAtNL3QExYyUFEpAEOmQvbiNFXvMREidi4HUVEuAD S8CxLuTrSkOEBhAVJgANhqNZTlUIP4ZkY9ZMClGZTbBF7VOpQmXNJkSTx3CAZmGCYbYJEfgk1AMYHdXQ K9ZogbAANbHELnRLSkYUkrQXTySIO7SgH8QXRrMKAu MF4WAuElTRWvZNa2ZOnrIRHnRMLyyb7YBIReTJI3HRx9SJNbJKUtGDDtVIulOEKkTQP6PKG7OXVqXAVf HO4SRdTeSMuiKTZSEem9WVisH8t7XFD4XH3HS1Xli5GbREPcBBTJJUggRV6gyyFsPUKdVh7PH6pEDgrd FhB3CkO5DHPmDZsmZUHbTuxyBUUzJYDzCKC2PpOoXh 1jMDQjPVB0YBr2QlQgGYIoHOQ9RXLjJ8VmJAJmDgnjHCY1TnTwMA6CGw3ZLyQ6TYQ2dDGjHi5OUkKnYN lIDhPgQD5SKPr= ID Date Data Source [id number] 11/26/2019 04:32:50 PM EDT [facility] Name Value Range Interpretation Code Description Data Anahi e(s) Supporting Document(s) History and Physical [facility] NDTMTa5gVdRTSmJr83/LZDjfFLEvr6AdSGpaMIn7LYhiDKPkX6EhMHJ1cE8lLAA5SOyOHhCeBpQzDYV6 lbm DmVabJGiIbSANaSbsJTpLvQYtfXguvuAQeGP9GqAE6NZSeF99uSTOqQIBcS2GeFQNtMdR+Rb0QZPPyxL YuSF8GDjeQ8Mnrf0f52PfZ/BzDB7cOgJqtBLjNwvHvyucKkvDC0XBGrb+ukhIkUvvd6Sa599CYdf93+R bZlPtsPyQHknfHe/LzCMoj9h/ysJL1azUy/P/iVz8Q bHTLvv+OLadJsZi2/BVNAguEox2/IVI6Rln/TrlTsQQbNnvqgjATAprOuFeWivL3tXCqo/0jG/zFuA6y vDqVJoRjYjkwVUcbBYQgiXKrS1WtRwLhwJU6Ser5MZ1vsQfPyudd5ZRmhyTDlMJGhFqcmDTi4IoX1M8N Sw6kTTPIYYoQrPJhLZvpHJ12dRVFWpsz6twiybi3ng J6w+rUUYMCeDtVxGrGkWDd1r8Nu0qv7njTofBliGbJ5QZWgqvqxxguHTL7K0gmQs4rGFq84Ho8BDAPnH yyGrWooMExrkEH4wFmO5h+FDR7cBL8QrumnKlne5Q6y2iY0IMSNGy1FdbYznt22Kq9H8ljyEeMi7bez3 tIkaZ6rVniCF2sy8Pf87xohZ3HwKEWU/tIre7XvnYo 8+ZQCy2r42oggH0l2hbBT9wnTjwVAlOSMDi3hR1wyWU4RVMw+TA5ua6/8eva2NnSObtztSXdBMY3bZ4E b4n8O0vl8EOzu1YpVrk++U2srhye6hAlXfyaHIIpra8Tm4g4qQmRHTEiDacl7Auan1ah5pi71/g23DJ/ czeOJVZcqw9vVBBHbjGJXLArmRTELmXgEVVx6DmAQr [file] AgICAgICAgICAgICAgICAgICAgICAgICAgICAgICAg ICAgICAgICAgICAgICAgICAgICAgICAgICAgICANCiAgICAgICAgICAgICAgICAgICAgICAgICAgICAg ICAgICAgICAgICAgICAgICAgICAgICAgICAgICAgICAgICAgICAgICAgICAgICAgICAgICAgICAgICAg ICAgICAgICAgICANCiAgICAgICAgICAgICAgICAgIC AgICAgICAgICAgICAgICAgICAgICAgICAgICAgICAgICAgICAgICAgICAgICAgICAgICAgICAgICAgIC AgICAgICAgICAgICAgICAgICAgICANCiAgICAgICAgICAgICAgICAgICAgICAgICAgICAgICAgICAgIC AgICAgICAgICAgICAgICAgICAgICAgICAgICAgICAg ICAgICAgICAgICAgICAgICAgICAgICAgICAgICAgICANCiAgICAgICAgICAgICAgICAgICAgICAgICAg ICAgICAgICAgICAgICAgICAgICAgICAgICAgICAgICAgICAgICAgICAgICAgICAgICAgICAgICAgICAg ICAgICAgICAgICAgICANCiAgICAgICAgICAgICAgIC AgICAgICAgICAgICAgICAgICAgICAgICAgICAgICAgICAgICAgICAgICAgICAgICAgICAgICAgICAgIC AgICAgICAgICAgICAgICAgICAgICAgICANCiAgICAgICAgICAgICAgICAgICAgICAgICAgICAgICAgIC AgICAgICAgICAgICAgICAgICAgICAgICAgICAgICAg ICAgICAgICAgICAgICAgICAgICAgICAgICAgICAgICAgICANCiAgICAgICAgICAgICAgICAgICAgICAg ICAgICAgICAgICAgICAgICAgICAgICAgICAgICAgICAgICAgICAgICAgICAgICAgICAgICAgICAgICAg ICAgICAgICAgICAgICAgICANCiAgICAgICAgICAgIC AgICAgICAgICAgICAgICAgICAgICAgICAgICAgICAgICAgICAgICAgICAgICAgICAgICAgICAgICAgIC AgICAgICAgICAgICAgICAgICAgICAgICAgICANCiAgICAgICAgICAgICAgICAgICAgICAgICAgICAgIC AgICAgICAgICAgICAgICAgICAgICAgICAgICAgICAg ICAgICAgICAgICAgICAgICAgICAgICAgICAgICAgICAgICAgICANCjw/lYVvY3xjzYBcssB9B7pnHe0E Fo6WXS3km6AgMSBvVHeujlInTatVAjEfJNUxKegLBov2AHuiZX3ZvAXoJ9DiX2TkFDlhFA5UHBGcYHLo yVNpQUJjGZCcEvU0AYJhRLrePR7GlLZvHMzhKHFfNR YtNdWoRAAmWKUyKRZiWYSgRDDFPC5XCqXhS0QtwM54YAFKDv4+YOusqfIuDxaYMqHtOAFye7HlRDn4EY 1BDFUoJolbl5JhMsUeVNCVHRknVV7REMW9QLCiVOEwAe6DPBSgF924jkZeDS3EVj7OEvVbNZ4nvw8ITr MmWSJrOrnQWhk7LTemIB8KiKVvEYdHClRlRsjoAYJg mFCFNBZaDHMiiZpzOILnOFDwXHThAR9kSJYnYUGcGuJ1UXYRQH4DSHFhUCNxbEEsHCSoRFETRQ5YMBpa SOB1LFEvseXcwLFhDIjuCD4IZKAzapRzZkCdMEKZDWe+Fz1RRN8ov3XvIZmlPfHkQG2bzc1LMElHSsUw C3Q1zFEnC7E7MDomRs1ZYRSgGPIeSgvsEXSMTFpiAR 9ATU9hvsZ2OM4YeKAeHERvDRHquZSyMDu3L83tzKHvSAaoFV3KKSI+Daniel+Jy4RAXKbJXZrQCXfWiWkFS XVPbKnO3MjF2IWa5AaH3TaFB75gUdkjiOaPOfhCN4SYW3cVDZtZBIYAR0PrXSioP7arzExLBZbVJMXCy ThF71lhPIqOPDbVHJtMPLqYs6RUDPiF0FsukQabFjf aaGpMCYfJDVGFB0ZLKhxhrFatDRnbYvjMV44oXbnTC4LVc7QNoWtGZ5ysf2CoQJgCp7MYBZxUL8JWAJt LBNjYDKiMVO8FAIpEkJkNAhdNNIwZZEaWLQ2YPFxOBRkVR3FHyVdZWUqEzvzZtXrYIPuZOUruw1MWOOd LQDaZLo4NvJlTVAlTJJxPCsxLNPxCLInJWC1LZCgNH SyOM5GWhYcQXVwIVN8TTfcPZRzJWBxtc0OPCGuTYGfCwyeBsJrTUWkQTYrGKmxEYYpRNB2FaK2ISCzBN GqKL8ZFeFzYDSdNNO4EGDlQPRjONAydx7PWEZlTRUhNOxxGIOeQHGfEZUlQPngFPHgBRH1OYV3JAWsMI MyRI1WGePjLWFzOMKbSULsPGDzSPKpqg5ODADcMVTf WOG1RINgFQQlKUCbHKgaYQNjGLBlViV7AOTyYNWkZS1OJiDvDIKpRBJ5KGKaHSZzHGUldj5OWFJsEYCt FUU5TDAmRGOpAVVcNQueITEmHHYdEmN8KTDoIDYaWJ4MTwNhDRNeTIN6RQmdSFAzNBJagz4DVPYvMNQi WeY0RpHoLEDcQEFoBUpsLSQiQKY4VOJ6AYNsOEBsPX 7LHlOcCUZrWPNiDZEkJWMdKHAlbx1EIZVsOUNkDEZ9FoJfITRfVTRyYHdzCYWuIAU0JzimCEKzFRQcNO 1AMwXdXSKsMrJpJNSmJQKwGULjzw7DESVsJOUsCiR4XQWoQLRmMTMdJMmuAYSaBDR7OKX1UUVwHHSeLW 1YZeMaBSJnRnH5KQDwLYBtKKUmfv0BNEXuJJTsBtFt WvObLBXjWADkYSoiMCLzDXD0AQXnXVOzOXOuTA8ULdDwYHImPnxoTIIcCJVfMQBywf6CVXJhHTLeYRQt UxZxEFCzFVGpGWdbYZOqVKS3MCeaVOQmTZMwSB8ONyKhLKObJyy3SnAmIHWmTJXmab9ITMNyKQDqHDEs QQEtKEGvOQNeWKa8zlRweCYiATn2GS9RM3BublKoHs RJUx1Vf813RUAhOQEyGx3TQ2ngFq2gAZTaIUFVIw5HMNi5MJfqYkDiBqF4BIX7QYSpRKJkGKE2WZLxDH A7XOA2XCO+ZRolBlB9M0Q8UvVxTDC5EbCoUSVaRgU7ZpHhCSAsYNBmRs7dWSUNBx1+DQpzdGFydHhyZW SGGoXbIhL3UEsbYKAICx6W Procedure Social History Code Duration Value Status Description Data Source(s ) Smoking 09/20/2020 12:00:00 AM EDT Current Smoker completed Curre nt Smoker eCW1 ([facility]) Smoking 09/20/2020 12:00:00 AM EDT Current Smoker completed Curre nt Smoker eCW1 ([facility]) Smoking 09/20/2020 12:00:00 AM EDT Current Smoker completed Curre nt Smoker eCW1 ([facility]) Smoking 09/01/2020 12:00:00 AM EDT Unknown if ever smoked comp leted Unknown if ever smoked [facility] ([facility]) Smoking 08/09/2020 12:00:00 AM EDT Unknown if ever smoked comp leted Unknown if ever smoked [facility] ([facility]) Smoking 08/03/2020 12:00:00 AM EDT Unknown if ever smoked comp leted Unknown if ever smoked [facility] ([facility]) Smoking 07/28/2020 12:00:00 AM EDT Unknown if ever smoked comp leted Unknown if ever smoked [facility] ([facility]) Smoking 07/01/2020 12:00:00 AM EDT Unknown if ever smoked comp leted Unknown if ever smoked [facility] ([facility]) Smoking 06/30/2020 12:00:00 AM EDT Unknown if ever smoked comp leted Unknown if ever smoked [facility] ([facility]) Smoking 06/27/2020 12:00:00 AM EDT Current Smoker completed Curre nt Smoker eCW1 ([facility]) Smoking 06/16/2020 12:00:00 AM EDT Unknown if ever smoked comp leted Unknown if ever smoked [facility] ([facility]) Smoking 06/10/2020 12:00:00 AM EDT Unknown if ever smoked comp leted Unknown if ever smoked [facility] ([facility]) Smoking 06/03/2020 12:00:00 AM EDT Unknown if ever smoked comp leted Unknown if ever smoked [facility] ([facility]) Smoking 05/13/2020 12:00:00 AM EDT Current Smoker completed Curre nt Smoker eCW1 ([facility]) Smoking 05/13/2020 12:00:00 AM EDT Current Smoker completed Curre nt Smoker eCW1 ([facility]) Smoking 05/09/2020 12:00:00 AM EDT Unknown if ever smoked comp leted Unknown if ever smoked [facility] ([facility]) Smoking 04/21/2020 12:00:00 AM EST Current Smoker completed Curre nt Smoker eCW1 ([facility]) Smoking 04/21/2020 12:00:00 AM EST Current Smoker completed Curre nt Smoker eCW1 ([facility]) Smoking 04/12/2020 12:00:00 PM EST Smokes tobacco daily (findi ng) completed Current Every Day Smoker [facility] ([facility]) Smoking 03/31/2020 12:00:00 AM EST Unknown if ever smoked comp leted Unknown if ever smoked [facility] ([facility]) Smoking 03/30/2020 12:00:00 AM EST Unknown if ever smoked comp leted Unknown if ever smoked [facility] ([facility]) Smoking 03/14/2020 12:00:00 AM EST Unknown if ever smoked comp leted Unknown if ever smoked [facility] ([facility]) Smoking 03/09/2020 12:00:00 AM EST Unknown if ever smoked comp leted Unknown if ever smoked [facility] ([facility]) Smoking 02/22/2020 12:00:00 AM EST Unknown if ever smoked comp leted Unknown if ever smoked [facility] ([facility]) Smoking 02/16/2020 12:00:00 AM EST Unknown if ever smoked comp leted Unknown if ever smoked [facility] ([facility]) Smoking 02/08/2020 12:00:00 AM EST Unknown if ever smoked comp leted Unknown if ever smoked [facility] ([facility]) Smoking 02/05/2020 12:00:00 AM EST Unknown if ever smoked comp leted Unknown if ever smoked [facility] ([facility]) Smoking 02/01/2020 12:00:00 AM EST Unknown if ever smoked comp leted Unknown if ever smoked [facility] ([facility]) Smoking 01/25/2020 12:00:00 AM EST Unknown if ever smoked comp leted Unknown if ever smoked [facility] ([facility]) Smoking 11/26/2019 12:00:00 AM EDT Current every day smoker co mpleted Current every day smoker [facility] Alcohol intake 11/26/2019 12:00:00 AM EDT Ex-drinker (finding) comp leted Ex- drinker (finding) [facility] Vital Signs ID Date Data Source UNK Name Value Range Interpretation Code Description Data Source(s) Body height 0.00 in Normal (applies to non-numeric resu lts) 0.00 in [facility] ([facility]) Body weight Measured 0.00 lbs Normal (applies to n on-numeric results) 0.00 lbs [facility] ([facility]) Body mass index (BMI) [Ratio] 0.00 kg/m2 No rmal (applies to non-numeric results) 0.00 kg/m2 [facility] Systolic blood pressure 0 mm[Hg] Normal (applies t o non-numeric results) 0 mm[Hg] [facility] ([facility]) Diastolic blood pressure 0 mm[Hg] Normal (applies to non-numeric results) 0 mm[Hg] [facility] ([facility]) Body mass index (BMI) [Ratio] 54.35 kg/m2 54.35 kg/m2 eCW1 ([facility]) Body weight 400.8 [lb_av] 400.8 [lb_av] eCW1 ([facility]) Body height [in_i] eCW1 ([facility]) Heart rate 97 /min 97 /min W1 ([facility]) Respiratory rate 18 /min 18 /min W1 ([facility]) Body temperature 99.2 [degF] 99.2 [degF] eCW1 ( [facility]) Systolic blood pressure 124 mm[Hg] 124 mm[Hg] e CW1 ([facility]) Diastolic blood pressure 78 mm[Hg] 78 mm[Hg] eCW1 ([facility]) Body height 0.00 in Normal (applies to non-numeric resu lts) 0.00 in [facility] ([facility]) Body weight Measured 0.00 lbs Normal (applies to n on-numeric results) 0.00 lbs [facility] ([facility]) Body mass index (BMI) [Ratio] 0.00 kg/m2 No rmal (applies to non-numeric results) 0.00 kg/m2 [facility] ([facility]) Systolic blood pressure 0 mm[Hg] Normal (applies t o non-numeric results) 0 mm[Hg] [facility] ([facility]) Diastolic blood pressure 0 mm[Hg] Normal (applies to non-numeric results) 0 mm[Hg] [facility] ([facility]) Body height 0.00 in Normal (applies to non-numeric resu lts) 0.00 in [facility] ([facility]) Body weight Measured 0.00 lbs Normal (applies to n on-numeric results) 0.00 lbs [facility] ([facility]) Body mass index (BMI) [Ratio] 0.00 kg/m2 No rmal (applies to non-numeric results) 0.00 kg/m2 [facility] ([facility]) Systolic blood pressure 0 mm[Hg] Normal (applies t o non-numeric results) 0 mm[Hg] [facility] ([facility]) Diastolic blood pressure 0 mm[Hg] Normal (applies to non-numeric results) 0 mm[Hg] [facility] ([facility]) Respiratory rate 18 /min 18 /min eCW1 ([facility]) Body weight 385 [lb_av] 385 [lb_av] eCW1 (Count includes the [facility]) Body height [in_i] eCW1 ([facility]) Body mass index (BMI) [Ratio] 52.21 kg/m2 52.21 kg/m2 eCW1 ([facility]) Body temperature 97.2 [degF] 97.2 [degF] eCW1 ( [facility]) Heart rate 98 /min 98 /min eCW1 ([facility]) Systolic blood pressure 126 mm[Hg] 126 mm[Hg] e CW1 ([facility]) Diastolic blood pressure 78 mm[Hg] 78 mm[Hg] eCW1 ([facility]) Body weight 350.8 [lb_av] 350.8 [lb_av] eCW1 ([facility]) Body height [in_i] eCW1 ([facility]) Body mass index (BMI) [Ratio] 47.57 kg/m2 47.57 kg/m2 eCW1 ([facility]) Heart rate /min eCW1 ([facility]) Respiratory rate 17 /min 17 /min eCW1 ([facility]) Body temperature 97.6 [degF] 97.6 [degF] eCW1 ( [facility]) Systolic blood pressure 128 mm[Hg] 128 mm[Hg] e CW1 ([facility]) Diastolic blood pressure 80 mm[Hg] 80 mm[Hg] eCW1 ([facility]) Body temperature 97.5 [DEGF] 97.5 [DEGF] [facility] RT ([facility]) Diastolic blood pressure 70.0 MM[HG] 70.0 MM[HG ] [facility] ([facility]) Body temperature 36.4 ARIES 36.4 ARIES [facility] ([facility]) Respiratory rate 16.0 /MIN 16.0 /MIN [facility] ([facility]) Oxygen saturation in Arterial blood by Pulse oximetry 98.0 % 98.0 % [facility] ([facility]) Systolic blood pressure 109.0 MM[HG] 109.0 MM[H G] [facility] ([facility]) Heart rate 84.0 /MIN 84.0 /MIN [facility] ([facility]) Body temperature 97.7 [degF] 97.7 [degF] [facility]STEVE ([facility] ) ID Date Data Source [id number] 04/01/2020 08:46:40 AM [facility] Name Value Range Interpretation Code Description Data Source(s) WEIGHT RECORDED 330 lb 330 lb [facility] Body height Measured [address] [facility] ID Date Data Source [id number] 02/23/2020 01:40:[address] [facility] Value Range Interpretation Code Description Data Source(s) TRANSFER FROM [facility] ID Date Data Source [id number] 01/15/2020 08:46:00 AM [facility] Name Value Range Interpretation Code Description Data Source(s) TRANSFER FROM [facility] ID Date Data Source [id number] 12/02/2019 04:44:07 PM [facility] Hospital Name Value Range Interpretation Code Description Data Source(s) TRANSFER FROM [facility] Patient Treatment Plan of Care Planned Activity Planned Date Details Description Data Source (s) Nicotine 4 MG/ACTUAT Inhalant Solution 12/02/2019 12:00:00 AM [facility] olanzapine 5 MG Disintegrating Oral Tablet 12/02/2019 12:00:00 AM [facility] benztropine mesylate 0.5 MG Oral Tablet 12/02/2019 12:00:00 AM [facility] Melatonin 5 MG Oral Tablet 12/02/2019 12:00:00 AM [facility] Cholecalciferol 1000 UNT Oral Tablet 12/02/2019 12:00:00 AM [facility] olanzapine 5 MG Disintegrating Oral Tablet 11/26/2019 02:45:37 PM [facility] Acetaminophen 325 MG Oral Tablet 11/26/2019 02:45:21 AM [facility] Ondansetron 4 MG Disintegrating Oral Tablet 11/26/2019 02:45:21 AM [facility] Hydroxyzine Hydrochloride 50 MG Oral Tablet 11/26/2019 02:45:21 AM [facility] Aluminum Hydroxide 40 MG/ML / Magnesium Hydroxide 40 MG/ML / Simethicone 4 MG/ML Oral Suspension 11/26/2019 02:45:21 AM [facility] Magnesium Hydroxide 80 MG/ML Oral Suspension 11/26/2019 02:45:21 AM [facility]
[2020-12-21] MEDS ORDERED: BACT800T5 PO (15:51)
--- OUTSIDE RECORDS SUMMARY | 2020-12-21 15:56 | CCD ---
Author Author [facility] Organization [facility] Address Unknown Phone Unavailable Support Name Relationship Address Phone ANKUSH MCGEE Next Of Kin [address] [place] [address] ARC Next Of Kin [address] [place] [address] Jie England DMD Next Of Kin [address] [place] [address] RAHUL JONES Next Of Kin [address] [place] [address] ST Next Of Kin Unknown Unavailable NEO MCGEE Next Of Kin [address] [facility] [place] [address] [place] Next Of Kin [address] [place] [address] CONVERGYS Next Of Kin [address] [place] [id number] [facility] Next Of Kin [address] [place] [address] RAHUL HOLLINGSWORTH Next Of Kin [address] [place] [id number] JRC* [place] [address] CONVERGY'S Next Of Kin [address] [place] [address] BEST BUY Next Of Kin [address] [place] [address] REYES BEANS Next Of Kin [place] [phone] UE Next Of Kin Unknown Unavailable JONH VILLA Next Of Kin [address] [place] [id number] RAHUL VILLA Next Of Kin [address] [place] [address] [place] [address] [phone] Care Team Providers Care Inspector Rubber Stamp Die Name Role Phone SYSTEM IN, NOT IN PROVIDER Unavailable Unavailable Osullivan, R Ed CLIENT ENGAGEMENT SPECIALIST Unavailable Unavailable Osullivan, R Ed CLIENT ENGAGEMENT SPECIALIST Unavailable Unavailable Osullivan, R Ed CLIENT ENGAGEMENT SPECIALIST Unavailable Unavailable Mollison, Disha Black MD Unavailable [...] Unavailable Cierra Pagan Unavailable TREJO, R ADRIANE CLIENT ENGAGEMENT SPECIALIST Unavailable Unavailable TREJO, R ADRIANE CLIENT ENGAGEMENT SPECIALIST Unavailable Unavailable TREJO, R ADRIANE CLIENT ENGAGEMENT SPECIALIST Unavailable Unavailable TRJEO, R ADRIANE CLIENT ENGAGEMENT SPECIALIST Unavailable Unavailable TREJO, R ADRIANE CLIENT ENGAGEMENT SPECIALIST Unavailable Unavailable TREJO, R ADRIANE CLIENT ENGAGEMENT SPECIALIST Unavailable Unavailable TREJO, R ADRIANE CLIENT ENGAGEMENT SPECIALIST Unavailable Unavailable TREJO, R ADRIANE CLIENT ENGAGEMENT SPECIALIST Unavailable Unavailable TREJO, R ADRIANE CLIENT ENGAGEMENT SPECIALIST Unavailable Unavailable TREJO, R ADRIANE CLIENT ENGAGEMENT SPECIALIST Unavailable Unavailable TREJO, R ADRIANE CLIENT ENGAGEMENT SPECIALIST Unavailable Unavailable TREJO, R ADRIANE CLIENT ENGAGEMENT SPECIALIST Unavailable Unavailable TREJO, R ADRIANE CLIENT ENGAGEMENT SPECIALIST Unavailable Unavailable TREJO, R ADRIANE CLIENT ENGAGEMENT SPECIALIST Unavailable Unavailable TREJO, R ADRIANE CLIENT ENGAGEMENT SPECIALIST Unavailable Unavailable TREJO, R ADRIANE CLIENT ENGAGEMENT SPECIALIST Unavailable Unavailable TREJO, R ADRIANE CLIENT ENGAGEMENT SPECIALIST Unavailable Unavailable TREJO, R ADRIANE CLIENT ENGAGEMENT SPECIALIST Unavailable Unavailable TREJO, R ADRIANE CLIENT ENGAGEMENT SPECIALIST Unavailable Unavailable TREJO, R ADRIANE CLIENT ENGAGEMENT SPECIALIST Unavailable Unavailable TREJO, R ADRIANE CLIENT ENGAGEMENT SPECIALIST Unavailable Unavailable TREJO, R ADRIANE CLIENT ENGAGEMENT SPECIALIST Unavailable Unavailable TREJO, R ADRIANE CLIENT ENGAGEMENT SPECIALIST Unavailable Unavailable TREJO, R ADRIANE CLIENT ENGAGEMENT SPECIALIST Unavailable Unavailable TREJO, R ADRIANE CLIENT ENGAGEMENT SPECIALIST Unavailable Unavailable TREJO, R ADRIANE CLIENT ENGAGEMENT SPECIALIST Unavailable Unavailable TREJO, R ADRIANE CLIENT ENGAGEMENT SPECIALIST Unavailable Unavailable TREJO, R ADRIANE CLIENT ENGAGEMENT SPECIALIST Unavailable Unavailable TREJO, R ADRIANE CLIENT ENGAGEMENT SPECIALIST Unavailable Unavailable TREJO, R ADRIANE CLIENT ENGAGEMENT SPECIALIST Unavailable Unavailable TREJO, R ADRIANE CLIENT ENGAGEMENT SPECIALIST Unavailable Unavailable TREJO, R ADRIANE CLIENT ENGAGEMENT SPECIALIST Unavailable Unavailable TREJO, R ADRIANE CLIENT ENGAGEMENT SPECIALIST Unavailable Unavailable TREJO, R ADRIANE CLIENT ENGAGEMENT SPECIALIST Unavailable Unavailable TREJO, R ADRIANE CLIENT ENGAGEMENT SPECIALIST Unavailable Unavailable TREJO, R ADRIANE CLIENT ENGAGEMENT SPECIALIST Unavailable Unavailable TREJO, R ADRIANE CLIENT ENGAGEMENT SPECIALIST Unavailable Unavailable TREJO, R ADRIANE CLIENT ENGAGEMENT SPECIALIST Unavailable Unavailable TREJO, R ADRIANE CLIENT ENGAGEMENT SPECIALIST Unavailable Unavailable TREJO, R ADRIANE CLIENT ENGAGEMENT SPECIALIST Unavailable Unavailable TREJO, R ADRIANE CLIENT ENGAGEMENT SPECIALIST Unavailable Unavailable TREJO, R ADRIANE CLIENT ENGAGEMENT SPECIALIST Unavailable Unavailable TREJO, R ADRIANE CLIENT ENGAGEMENT SPECIALIST Unavailable Unavailable TREJO, R ADRIANE CLIENT ENGAGEMENT SPECIALIST Unavailable Unavailable Khadijah Amaya Unavailable NITA, Cora [...] NITA, Cora BULLARD MD Unavailable Unavailable NITA, S JUAN MIGUEL MD Unavailable Unavailable Rebecca TREVIZO MD Unavailable Unavailable Rebecca TREVIZO MD Unavailable Unavailable Rebecca TREVIZO MD Unavailable Unavailable Rebecca TREVIZO MD Unavailable Unavailable Rebecca TREVIZO MD Unavailable Unavailable Rebecca TREVIZO MD Unavailable Unavailable Rebecca TREVIZO MD Unavailable Unavailable Rebecca TREVIZO MD Unavailable Unavailable eRbecca TREVIZO MD Unavailable Unavailable Rebecca TREVIZO MD [...] Unavailable Unavailable Rebecca TREVZIO MD Unavailable Unavailable Rebecca TREVIZO MD Unavailable Unavailable Rebecca TREVIZO MD Unavailable Unavailable Rebecca TREVIZO MD Unavailable Unavailable Rebecca TREVIZO MD Unavailable Unavailable Rebecca TREVIZO MD Unavailable Unavailable Rebecca TREVIZO MD Unavailable Unavailable Rebecca TREVIZO MD Unavailable Unavailable NON-STAFF, PHYSICIAN Unavailable Unavailable Fish, Ronaldo Laureano MD Unavailable [...] Georgi FERNANDEZ Unavailable Unavailable Fish, B Georgi FERNANDZE Unavailable Unavailable Fish, B Georgi FERNANDEZ Unavailable Unavailable Fish, B Georgi FERNANDEZ Unavailable Unavailable Fish, B Georgi FERNANDEZ Unavailable Unavailable Fish, B Georgi FERNANDEZ Unavailable Unavailable Fish, B Georgi FERNANDEZ Unavailable Unavailable Fish, B Georgi FERNANDEZ Unavailable Unavailable Cheyenne Yang Unavailable [phone] ELIZABETH WRIGHT MD Unavailable Unavailable ELIZABETH WRIGHT [...] EDWARD RPA Unavailable Unavailable Kermit Blood Unavailable [phone] LarryFeliciano marqueson Unavailable [phone] Feliciano Bloodon Unavailable [phone] Feliciano Bloodon Unavailable [phone] Robertshaw, Kermit Unavailable [phone] Larryhaw, Kermit Unavailable [phone] SYSTEM, NOT IN PROVIDER Unavailable Unavailable Earl Hwang Unavailable Unavailable Silverio EMERY MD Unavailable Unavailable Silverio EMERY MD Unavailable Unavailable Silverio EMERY MD Unavailable Unavailable Silverio EMERY MD Unavailable Unavailable Silverio EMERY MD Unavailable Unavailable CHANLIECCO, Silverio RUSHING MD Unavailable Unavailable CHANLIDESTINYCO, C СЕРГЕЙ FERNANDEZ Unavailable Unavailable CHANLIECCO, C СЕРГЕЙ FERNANDEZ Unavailable Unavailable CHANLIECCO, C СЕРГЕЙ FERNANDEZ Unavailable Unavailable CHANLIECCO, C СЕРГЕЙ MD Unavailable Unavailable WAYNELIJOSE EDUARDO, Silverio RUSHING MD Unavailable Unavailable Re-disclosure Warning The records [...] is protected by Article 27-F of the [facility] Public Health law. If you continue you may have access to information: Regarding HIV / AIDS; Provided by facilities licensed or operated by the [facility] Office of Mental Health; or Provided by the [facility] Office for People With Developmental Disabilities. If such information is present, then the following [facility] mandated warning applies: This information has [...] law may result in a fine or long term sentence or both. A general authorization for the release of medical or other information is NOT sufficient authorization for further disc losure. Allergies and Adverse Reactions Type Description Substance Reaction Status Data Source(s ) Propensity to adverse reactions NO KNOWN ALLERGIES NO KNOWN ALLERGIES [facility] No Known Drug Allergies No Known Drug Allergies [facility] Allergy to substance Allergy to substance Allergy to substance [place] ([facility]) Family History Family Member Name Family Member Gender Family Member Status Date o f Status Description Data Source(s) Unknown Unknown Problem [facility] ([facility]) Encounters Encounter Providers Location Date Indications Data Source(s ) [facility]-billable [facility] 12/20/2020 12:00:00 AM EDT [facility] ([facility]) non-billable [facility] 11/18/2020 12:00:00 AM EDT [facility] ([facility]) non-billable [facility] 10/19/2020 12:00:00 AM EDT [facility] ([facility]) [place] [address] [facility] [address] 09/22/2020 12:00:00 AM EDT eC1 ([facility]) non-billable [facility] 09/19/2020 12:00:00 AM EDT [facility] ([facility]) Brief Individual Psychotherapy - 30 min Attender: Cierra mosley [facility] 09/01/2020 01:45:00 AM EDT - 09/01/2020 01:45:00 AM EDT [facility] ([facility]) Attender: Cierra Pagan 09/01/2020 12:00:00 AM EDT [facility] ([facility]) non-billable [facility] 08/19/2020 12:00:00 AM EDT [facility] ([facility]) Outpatient Attender: Ed Osullivan NP [facility] 08/09/2020 01:00:00 AM EDT - 08/09/2020 01:00:00 AM EDT [facility] ([facility]) Attender: Ed Osullivan NP 08/09/2020 12:00:00 AM EDT [facility] ([facility]) Outpatient Attender: Ed Osullivan NP [facility] 08/03/2020 01:30:00 AM EDT - 08/03/2020 01:30:00 AM EDT [facility] ([facility]) Attender: Ed Osullivan NP 08/03/2020 12:00:00 AM EDT [facility] ([facility]) Unknown [address] [facility] [address] 08/02/2020 12:00:00 AM EDT eCW1 ([facility]) Brief Individual Psychotherapy - 30 min Attender: Cierra mosley [facility] 07/28/2020 02:30:00 AM EDT - 07/28/2020 02:30:00 AM EDT [facility] ([facility]) Attender: Cierra Pagan 07/28/2020 12:00:00 AM EDT [facility] ([facility]) Outpatient Attender: KRISTA MCKEON RPA 07/19 01:19:27 PM EDT - 07/19/2020 02:02:46 PM EDT [facility] ([facility] ) non-billable Behavioral Health Clinic 07/19/2020 12:00:00 AM EDT [facility] ([facility]) Outpatient Attender: Ed Osullivan NP [facility] 07/01/2020 03:00:00 AM EDT - 07/01/2020 03:00:00 AM EDT [facility] ([facility]) Attender: Ed Osullivan NP 07/01/2020 12:00:00 AM EDT [facility] ([facility]) Brief Individual Psychotherapy - 30 min Attender: Cierra mosley [facility] 06/30/2020 02:30:00 AM EDT - 06/30/2020 02:30:00 AM EDT [facility] ([facility]) Attender: Cierra Pagan 06/30/2020 12:00:00 AM EDT [facility] ([facility]) Outpatient [address] [facility] [address] 06/27/2020 12:00:00 AM EDT eCW1 ([facility]) Extended Individual Psychotherapy - 45 min Attender: Vicki Pagan [facility] 06/16/2020 10:45:00 AM EDT - 06/16/2020 10:45:00 AM EDT [facility] ([facility]) Attender: Cierra Pagan 06/16/2020 12:00:00 AM EDT [facility] ([facility]) Outpatient Attender: Kermit Blood 06/13 07:19:06 PM EDT - 06/13/2020 07:33:35 PM EDT [facility] ([facility] ) Outpatient Attender: Ed Osullivan NP [facility] 06/10/2020 09:30:00 AM EDT - 06/10/2020 09:30:00 AM EDT [facility] ([facility]) Attender: Ed Osullivan NP 06/10/2020 12:00:00 AM EDT [facility] ([facility]) Telemed Diagnostic Eval Attender: Ed Osullivan NP [facility] 06/03/2020 02:00:00 AM EDT - 06/03/2020 02:00:00 AM EDT [facility] ([facility]) Attender: Ed Osullivan NP 06/03/2020 12:00:00 AM EDT [facility] ([facility]) ([facility]TH) [facility] Scheduled Visit [address] [place] [address] 05/24/2020 12:00:00 AM EDT eCW1 ([facility]) Outpatient [address] [facility] [address] 05/13/2020 12:00:00 AM EDT eCW1 ([facility]) Unknown [address] [facility], [facility] [address] 05/11/2020 12:00:00 AM EDT eCW1 ([facility]) Brief Individual Psychotherapy - 30 min Attender: Khadijah garcia [facility] 05/09/2020 10:30:00 AM EDT - 05/09/2020 10:30:00 AM EDT [facility] ([facility]) Attender: Khadijah Amaya 05/09/2020 12:00:00 A M EDT [facility] ([facility]) Outpatient Attender: HANG SANABRIA MD 05/06 12:09:17 PM EDT - 05/06/2020 12:51:55 PM EDT [facility] ([facility] ) Unknown [address] [facility] [address] 05/04/2020 12:00:00 AM EDT eCW1 ([facility]) Outpatient [address] [facility] [address] 04/21/2020 12:00:00 AM EST eCW1 ([facility]) Emergency ES1-ES1 04/20/2020 01:49:00 PM EST - 021 06:09:00 PM EST [facility] Patient discharged. Unlisted evaluation and management service Performer: Hong salinas 04/19/2020 03:11:00 PM EST - 04/20/2020 05:20:00 PM EST [facility] ([facility]) Unlisted evaluation and management service 04/12/2020 05:43:00 PM EST - 04/19/2020 03:07:00 PM EST [facility] ([facility]) Emergency Attender: СЕРГЕЙ EMERY MDConsultant: DIONNE CAREY NON-STAFF 04/11/2020 12:11:00 AM EST - 04/11/2020 02:42:00 AM EST [facility] Patient discharged. Extended Individual Psychotherapy - 45 min Attender: Vicki Pagan [facility] 03/31/2020 10:30:00 AM EST - 03/31/2020 10:30:00 AM EST [facility] ([facility]) Attender: Cierra Pagan 03/31/2020 12:00:00 AM EST [facility] ([facility]) Telemed Diagnostic Eval Attender: Ed Osullivan NP [facility] 03/30/2020 11:00:00 AM EST - 03/30/2020 11:00:00 AM EST [facility] ([facility]) Outpatient Attender: ADRIANE TREJO NPReferrer: Georgi ma MD [id number] 03/30/2020 12:00:00 AM EST Pain in left hand [facility] Pain in left hand Outpatient Referrer: ADRIANE TREJO NP 03/30/2020 1 2:00:00 AM EST Pain in left hand [facility] Pain in left hand Outpatient Referrer: ADRIANE TREJO CLIENT ENGAGEMENT SPECIALIST 03/30/2020 1 2:00:00 AM EST Pain in left hand [facility] Pain in left hand Attender: Ed Osullivan NP 03/30/2020 12:00:00 AM EST [facility] ([facility]) Outpatient Attender: Wayne Malhotra/Louis/Franco/Re indl 03/24/2020 08:45:00 AM EST [facility] ([facility]) Extended Individual Psychotherapy - 45 min Attender: Vicki Pagan [facility] 03/14/2020 12:00:00 PM EST - 03/14/2020 12:00:00 PM EST [facility] ([facility]) Attender: Cierra Pagan 03/14/2020 12:00:00 AM EST [facility] ([facility]) Cheyenne Yang, [facility]: [address] [place] [phone], Ph. Attender: Cheyenne Yang [facility] Medical 03/10/2020 12:00:00 AM EST [place] ([facility]) Extended Individual Psychotherapy - 45 min Attender: Vicki Pagan [facility] 03/09/2020 10:30:00 AM EST - 03/09/2020 10:30:00 AM EST [facility] ([facility]) Attender: Cierra Pagan 03/09/2020 12:00:00 AM EST [facility] ([facility]) Outpatient Attender: ADRIANE TREJO NP 02/26/2020 12:00:[address] [facility] [id number]"Psychotherapy Attender: Cierra Pagan [facility] 02/22/2020 03:00:00 AM EST - 02/22/2020 03:00:00 AM EST [facility] ([facility]) Attender: Cierra Pagan 02/22/2020 12:00:00 AM EST [facility] ([facility]) Outpatient Attender: TYRONE TREVIZO MD 02/22/2020 12:00:[address] [facility] Outpatient Referrer: PROVIDER SYSTEM IN [facility] 02/16/2020 1 1:53:00 AM EST left hand lac with cellulitis and lymphangitis with extensor tendon injury [facility] left hand lac with cellulitis and lympha ngitis with extensor tendon injury Psychiatric Diagnostic Evaluation with Medical Service s Attender: Ed Osullivan NP [facility] 02/16/2020 02:00:00 AM EST - 02/16/2020 02:00:00 AM EST [facility] ([facility]) Attender: Ed Osullivan NP 02/16/2020 12:00:00 AM EST [facility] ([facility]) [id number]"Psychotherapy Attender: Cierra Pagan [facility] 02/08/2020 02:00:00 AM EST - 02/08/2020 02:00:00 AM EST [facility] ([facility]) Attender: Cierra Pagan 02/08/2020 12:00:00 AM EST [facility] ([facility]) Psychiatric Diagnostic Evaluation (Non-Medical) Attender: Afia Pagan [facility] 02/05/2020 09:00:00 AM EST - 02/05/2020 09:00:00 AM EST [facility] ([facility]) Attender: Cierra Pagan 02/05/2020 12:00:00 AM EST [facility] ([facility]) Psychiatric Diagnostic Evaluation (Non-Medical) Attender: Afia Pagan [facility] 02/01/2020 01:00:00 AM EST - 02/01/2020 01:00:00 AM EST [facility] ([facility]) Attender: Cierra Pagan 02/01/2020 12:00:00 AM EST [facility] ([facility]) Psychiatric Diagnostic Evaluation (Non-Medical) Attender: Afia Pagan [facility] 01/25/2020 01:00:00 AM EST - 01/25/2020 01:00:00 AM EST [facility] ([facility]) Attender: Cierra Pagan 01/25/2020 12:00:00 AM EST [facility] ([facility]) Outpatient Referrer: PROVIDER SYSTEM [id number] 01/15/2020 08:3 0:00 AM EST unspecified psychosis [facility] unspecified psychosis Inpatient Attender: ELIZABETH Mata nder: JUAN MIGUEL MOYA MDAdmitter: JUAN MIGUEL MOYA MDReferrer: JUAN MIGUEL MOYA MD [id number] 11/26/2019 12:00:00 AM EDT - 12/02/2019 10:14:[address] [facility] psychosis Patient discharged. Functional Status Immunizations Vaccine Date Status Description Data Source(s) COVID-19 VACCINE Moderna 11/03/2020 12:00:00 AM EDT completed [facility] Vaccine Series Complete: NOThis Data was Submitted to [facility] Via [employer]. As of October 1998, a 2-dose hepatitis B schedule for adolescents (11-15 year olds) was FDA approved for [employer]'s Recombivax HB adult formulation. Use code 43 for the 2-dose. This code should be used for any use of standard adult formulation of hepatitis B vaccine. 09/20/2020 12:37:00 PM EDT completed eCW1 ([facility]) As of October 1998, a 2-dose hepatitis B schedule for adolescents (11-15 year olds) was FDA approved for [employer]'s Recombivax HB adult formulation. Use code 43 for the 2-dose. This code should be used for any use of standard adult formulation of hepatitis B vaccine. 09/20/2020 12:37:00 PM EDT completed eCW1 ([facility]) As of October 1998, a 2-dose hepatitis B schedule for adolescents (11-15 year olds) was FDA approved for [employer]ck's Recombivax HB adult formulation. Use code 43 for the 2-dose. This code should be used for any use of standard adult formulation of hepatitis B vaccine. 09/20/2020 12:37:00 PM EDT completed eCW1 ([facility]) Hep A, adult 05/13/2020 08:45:00 AM EDT completed e CW1 ([facility]) Hep A, adult 05/13/2020 08:45:00 AM EDT completed e CW1 ([facility]) Hep A, adult 05/13/2020 08:45:00 AM EDT completed e CW1 ([facility]) Hep A, adult 05/13/2020 08:45:00 AM EDT completed e CW1 ([facility]) Hep A, adult 05/13/2020 08:45:00 AM EDT completed e CW1 ([facility]) Medications Medication Brand Name Start Date Product Form Dose Route Admi nistrative Instructions Pharmacy Instructions Status Indications Reaction Description Data Source(s) ziprasidone 60 MG Oral Capsule ziprasidone HCl 08/24/2020 12:00:00 AM EDT 60 mg completed <td ID="Me dicationRxNorm_1">819511</td><td ID="MedicationMedication_1">ziprasidone HCl</td><td ID="MedicationRoute_1"></td><td ID="MedicationRouteConcept_1"></td><td ID="MedicationStartDate_1">08/24/2020</td><td ID="MedicationStopDate_1"></td><td ID="MedicationDosageFrequency_1"></td><td ID="MedicationDuration_1">30</td><td ID="MedicationFormulaStrength_1">60 mg</td><td ID="MedicationDosageForm_1">capsule</td><td ID="MedicationDosageFormCode_1"></td><td ID="MedicationDosageDescription_1"></td><td ID="MedicationMedicationId_1">[id number]</td><td ID="MedicationAccount_1">[id number]</td><td ID="MedicationNpid_1">[id number]</td><td ID="MedicationAuthorFirstName_1">Ed</td><td ID="MedicationAuthorLastName_1">Osullivan</td><td ID="MedicationTaxonomyCode_1">[id number]</td><td ID="MedicationTaxonomyDesc_1">Nurse Practitioner</td><td ID="MedicationPhoneNumber_1">[phone]</td> [facility] ([facility]) 4 mg 08/02/2020 12:00:00 AM EDT tablets,dose [...] 60 mg by mouth completed <td ID="Me dicationRxNorm_1">039597</td><td ID="MedicationMedication_1">ziprasidone HCl</td><td ID="MedicationRoute_1">by mouth</td><td ID="MedicationRouteConcept_1">S62909</td><td ID="MedicationStartDate_1">06/10/2020</td><td ID="MedicationStopDate_1">08/09/2020</td><td ID="MedicationDosageFrequency_1">twice a day</td><td ID="MedicationDuration_1">30</td><td ID="MedicationFormulaStrength_1">60 mg</td><td ID="MedicationDosageForm_1">capsule</td><td ID="MedicationDosageFormCode_1"></td><td ID="MedicationDosageDescription_1">with meals</td><td ID="MedicationMedicationId_1">[id number]</td><td ID="MedicationAccount_1">[id number]</td><td ID="MedicationNpid_1">[id number]</td><td ID="MedicationAuthorFirstName_1">Ed</td><td ID="MedicationAuthorLastName_1">Osullivan</td><td ID="MedicationTaxonomyCode_1">[id number]</td><td ID="MedicationTaxonomyDesc_1">Nurse Practitioner</td><td ID="MedicationPhoneNumber_1">[phone]</td> [facility] ([facility]) ziprasidone 40 MG Oral Capsule ziprasidone HCl 06/10/2020 12:00:00 AM EDT 40 mg by mouth completed <td ID="Me dicationRxNorm_3">676809</td><td ID="MedicationMedication_3">ziprasidone HCl</td><td ID="MedicationRoute_3">by mouth</td><td ID="MedicationRouteConcept_3">P58693</td><td ID="MedicationStartDate_3">06/10/2020</td><td ID="MedicationStopDate_3">08/09/2020</td><td ID="MedicationDosageFrequency_3">twice a day</td><td ID="MedicationDuration_3">30</td><td ID="MedicationFormulaStrength_3">40 mg</td><td ID="MedicationDosageForm_3">capsule</td><td ID="MedicationDosageFormCode_3"></td><td ID="MedicationDosageDescription_3">with meals</td><td ID="MedicationMedicationId_3">[id number]</td><td ID="MedicationAccount_3">[id number]</td><td ID="MedicationNpid_3">[id number]</td><td ID="MedicationAuthorFirstName_3">Ed</td><td ID="MedicationAuthorLastName_3">Osullivan</td><td ID="MedicationTaxonomyCode_3">[id number]</td><td ID="MedicationTaxonomyDesc_3">Nurse Practitioner</td><td ID="MedicationPhoneNumber_3">[phone]</td> [facility] ([facility]) Trazodone Hydrochloride 100 MG Oral Tablet trazodone 06/10 12:00:00 AM EDT 100 mg completed <td ID="Medica tionRxNorm_2">219928</td><td ID="MedicationMedication_2">trazodone</td><td ID="MedicationRoute_2"></td><td ID="MedicationRouteConcept_2"></td><td ID="MedicationStartDate_2">06/10/2020</td><td ID="MedicationStopDate_2">07/10/2020</td><td ID="MedicationDosageFrequency_2"></td><td ID="MedicationDuration_2">30</td><td ID="MedicationFormulaStrength_2">100 mg</td><td ID="MedicationDosageForm_2">tablet</td><td ID="MedicationDosageFormCode_2"></td><td ID="MedicationDosageDescription_2"></td><td ID="MedicationMedicationId_2">[id number]</td><td ID="MedicationAccount_2">[id number]</td><td ID="MedicationNpid_2">[id number]</td><td ID="MedicationAuthorFirstName_2">Ed</td><td ID="MedicationAuthorLastName_2">Osullivan</td><td ID="MedicationTaxonomyCode_2">[id number]</td><td ID="MedicationTaxonomyDesc_2">Nurse Practitioner</td><td ID="MedicationPhoneNumber_2">[phone]</td> [facility] ([facility]) olanzapine 5 MG Oral Tablet olanzapine 05/12/2020 12:00:00 AM EDT 5 mg by mouth completed <td ID="Medica tionRxNorm_1">[id number]</td><td ID="MedicationMedication_1">olanzapine</td><td ID="MedicationRoute_1">by mouth</td><td ID="MedicationRouteConcept_1">H94743</td><td ID="MedicationStartDate_1">05/12/2020</td><td ID="MedicationStopDate_1"></td><td ID="MedicationDosageFrequency_1">once a day</td><td ID="MedicationDuration_1">30</td><td ID="MedicationFormulaStrength_1">5 mg</td><td ID="MedicationDosageForm_1">tablet</td><td ID="MedicationDosageFormCode_1"></td><td ID="MedicationDosageDescription_1"></td><td ID="MedicationMedicationId_1">[id number]</td><td ID="MedicationAccount_1">[id number]</td><td ID="MedicationNpid_1">[id number]</td><td ID="MedicationAuthorFirstName_1">Ed</td><td ID="MedicationAuthorLastName_1">Osullivan</td><td ID="MedicationTaxonomyCode_1">[id number]</td><td ID="MedicationTaxonomyDesc_1">Nurse Practitioner</td><td ID="MedicationPhoneNumber_1">[phone]</td> [facility] ([facility]) olanzapine 10 MG Oral Tablet OLANZAPINE 05/09/2020 12:00:00 AM EDT tab let 30 TAKE ONE TABLET BY MOUTH EVERY DAY TAKE ONE TABLET BY MOUTH EVERY DAY SOLD: 05/09/2020 [facility] 10 mg 03/05/2020 12:00:00 AM EST tablet 7 TAKE ONE TABLET BY MOUTH EVERY DAY TAKE ONE TABLET BY MOUTH EVERY DAY SOLD: 03/05/2020 [email or web address] Nicotine 4 MG/ACTUAT Inhalant Solution N icotine 10 MG Inhalation Inhaler (NICOTROL) Nicotine 10 MG Inhalation Inhaler (NICOTROL) 0 12:00:00 AM EDT 1 {puff} Inhalation active Inha le 1 puff into the lungs every hour as needed for Smoking cessation (Craving; MDD 12) [facility] benztropine mesylate 0.5 MG Oral Tablet Benztropine Mesylate 0.5 MG Oral Tablet (COGENTIN) Benztropine Mesylate 0.5 MG Oral Tablet (COGENTIN) 12:00:00 AM EDT 0.5 mg Oral active Take 1 t ablet by mouth daily [facility] Melatonin 5 MG Oral Tablet Melatonin 5 MG Oral Tablet 2019 12:00:00 AM EDT 5 mg Oral active Take 1 tablet by mouth nightly [facility] olanzapine 5 MG Disintegrating Oral Tabl et OLANZapine 5 MG Oral Tablet Disintegrating (ZYPREXA) OLANZapine 5 MG Oral Tablet Disintegrating (ZYPREXA) 12/02/2019 12:00:00 AM EDT 5 mg Oral active Take 1 tablet by mouth nightly [facility] Cholecalciferol 1000 UNT Oral Tablet Vit forbes D3 25 MCG (1000 UT) Oral Tablet (CHOLECALCIFEROL) Vitamin D3 25 MCG (1000 UT) Oral Tablet (CHOLECALCIFER OL) 12/02/2019 12:00:00 AM EDT 1000 U Oral active Take 1 tablet by mouth daily [facility] Cholecalciferol 1000 UNT Oral Tablet vit forbes D3 (CHOLECALCIFEROL) tablet 1,000 Units vitamin D3 (CHOLECALCIFEROL) tablet 1,000 Units 2019 12:15:00 PM EDT 1000 U Oral active 1,000 Un its, Oral, Daily Standard, First dose on Sat12/01/19 at 1215, For 30 days
25 mcg vitamin D3 = 1,000 international units vitamin D3.
[facility] Medication administered onsite Melatonin 5 MG Oral Tablet melatonin tablet 5 mg melatonin t ablet 5 mg 11/30/2019 10:00:00 PM EDT 5 mg Oral active 5 mg, Oral, Nightly, First dose on 11/30/19 at 2200, For [address] [facility] Medication administered onsite benztropine mesylate 1 MG Oral Tablet benztropine (COG ENTIN) tablet 0.5 mg benztropine (COGENTIN) tablet 0.5 mg 11/29/2019 08:00:00 PM EDT 0.5 m g Oral active 0.5 mg, Oral, Da jenni Standard, First dose on 11/29/19 at 2000, For [address] [facility] Medication administered onsite olanzapine 5 MG Disintegrating Oral Tabl et OLANZapine zydis (ZYPREXA) disintegrating tablet 5 mg OLANZapine zydis (ZYPREXA) disintegratin g tablet 5 mg 11/26/2019 10:00:00 PM EDT 5 mg Oral active 5 mg, Oral, Nightly, First dose on Jeannie 11/26/19 at 2200, For [address] [facility] Medication administered onsite olanzapine 5 MG Disintegrating Oral Tabl et OLANZapine zydis (ZYPREXA) disintegrating tablet 5 mg OLANZapine zydis (ZYPREXA) disintegratin g tablet 5 mg 11/26/2019 02:45:37 PM EDT 5 mg Oral active 5 mg, Oral, Every 6 hours PRN, agitation, psychosis, Starting [facility] 11/26/19 at 1445, For [address] [facility] Medication administered onsite Trazodone Hydrochloride 100 MG Oral Tablet trazodone ( DESYREL) tablet 100 mg trazodone (DESYREL) tablet 100 mg 11/26/2019 02:45:21 AM EDT 100 mg Oral active 100 mg, Oral, Nightl y PRN, Sleep, Starting [facility] 11/26/19 at 0245, For [address] [facility] Medication administered onsite Nicotine 4 MG/ACTUAT Inhalant Solution nicotine (NICOT ROL) inhaler 1 puff nicotine (NICOTROL) inhaler 1 puff 11/26/2019 02:45:21 AM EDT 1 {puff} Inhalation active 1 puff, Inhala tion, Every 1 hour PRN, Smoking cessation, Craving; MDD 12, Starting [facility] 11/26/19 at 0245, For 30 days
Max of 12 doses per 24-hour period
[facility] Medication administered onsite Acetaminophen 325 MG [...]
Max of 4 doses per 24-hour period
[facility] Medication administered onsite Hydroxyzine Hydrochloride 50 MG Oral Tablet hydrOXYzin e (ATARAX) tablet 50 mg hydrOXYzine (ATARAX) tablet 50 mg 11/26/2019 02:45:21 AM EDT 50 mg Oral active 50 mg, Oral, Every 6 hours PRN, Anxiety, Sleep, Starting [facility] 11/26/19 at 0245, For [address] [facility] Medication administered onsite Ondansetron 4 MG Disintegrating Oral Tab let ondansetron (ZOFRAN-ODT) disintegrating tablet 4 mg ondansetron (ZOFRAN-ODT) disintegrating tablet 4 mg 11/26/2019 02:45:21 AM EDT 4 mg Oral active 4 mg, Oral, Every 6 hours PRN, Nausea, Starting [facility] 11/26/19 at 0245, For 30 days
Dissolve on tongue.
[facility] Medication administered onsite Magnesium Hydroxide 80 [...] > 2 notify provider before administering
[facility] Medication administered onsite Aluminum Hydroxide 40 [...]
Max of 4 doses per 24-hour period
[facility] Medication administered onsite Insurance Providers Payer name Policy type / Coverage type Policy ID Covered green party ID Covered green party's relationship to santoyo Policy Santoyo Plan Information [facility] [id number] [facility] [id number] [place] [id number] [id number] [place] 302/307 [id number] MEDICAID [id number] SP [id number] MEDICAID [id number] SP [id number] [facility] I [id number] Self [id number] [facility] I [id number] Self [id number] [facility] [id number] Self [id number] [facility] MEDICAID [id number] Ashley [id number] [employer] [facility] [employer] [id number] Self [id number] [place] 302/307 [id number] [place] LICENSE OF [facility] MANAGEMENT [id number] SP [id number] [place] 302/307 [id number] [employer] [id number] [employer] [id number] SP [id number] MEDICAID [id number] SP [id number] SELF PAY ONLY [id number] SP [id number] [employer] [id number] [id number] ANSI-Not a Secondary Insurance [id number] ANSI-Medicaid [id number] GROUP HEALTH INSURANCE [id number] SP [id number] MEDICAID [id number] SP [id number] SELF PAY ONLY [id number] SP [id number] MEDICAID M [id number] S [id number] UNHC COMMUNITY PLAN MCDHMO [id number] SP [id number] MEDICAID [id number] SP [id number] Medicaid Dental P UNAVAILABLE S UN AVAILABLE EMEDNY [id number] SP [id number] [facility] [id number] SP [id number] [facility] [id number] SP [id number] UNHC COMMUNITY PLAN MCDHMO [id number] SP [id number] [facility](MCAID) O [id number] S [id number] [facility] [id number] SP [id number] UNHC COMMUNITY PLAN XIX [id number] 18 [id number] UNHC COMMUNITY PLAN MCDHMO [id number] SP [id number] [place] P[place] 302/307 [id number] [place] [employer] [id number] Family Dependent BCBS/Excellus Medigap Part [id number] Family Dependent [employer] PPO O [id number] P [id number] [employer] [id number] SELF PAY [id number] [employer] [id number] Problems, Conditions, and Diagnoses Code Display Name Description Problem Type Effective Dates Data Source(s) [id number] Unspecified injury of left wrist, hand a nd finger(s), initial encounter Unspecified injury of left wrist, hand and finger(s), initial encounter Diagnosis 04/11/2020 12:11:00 AM [facility] [id number] Sprain of metacarpophalangea l joint of left middle finger, initial encounter Sprain of metacarpophalangeal joint of l eft middle finger, initial encounter Diagnosis 04/11/2020 12:11:00 AM [facility] [id number] Sprain of metacarpophalangea l joint of left ring finger, initial encounter Sprain of metacarpophalangeal joint of l eft ring finger, initial encounter Diagnosis 04/11/2020 12:11:00 AM [facility] A43568 Nicotine dependence, cigarettes, uncompl icated Nicotine dependence, cigarettes, uncomplicated Diagnosis 04/11/2020 12:11:00 AM [facility] S24344X Sprain of metacarpophalangea l joint of left little finger, initial encounter Sprain of metacarpophalangeal joint of l eft little finger, initial encounter Diagnosis 04/11/2020 12:11:00 AM [facility] [id number] Fall on same level from slip ping, tripping and stumbling without subsequent striking against object, initial encounter Fall on same level from slipping, tripping and stumbling without subsequent striking against object, initial encounter Diagnosis 04/11/2020 12:11:00 AM [facility] [id number] Unspecified street and highw ay as the place of occurrence of the external cause Unspecified street and highway as the pl toña of occurrence of the external cause Diagnosis 04/11/2020 12:11:00 AM [facility] M79.642 Pain in left hand Pain in left hand Diagnosis 03/30 02:02:[address] [facility] S61.412A Laceration without foreign body of left hand, initial encounter Laceration without foreign body of left hand, initial encounter Diagnosis 03/30/2020 02:02:[address] [facility] S66.922A Laceration of unspecified mu scle, fascia and tendon at wrist and hand level, left hand, initial encounter Laceration of unspecified muscle, fascia and tendon at wrist and hand level, left hand, initial encounter Diagnosis 03/30/2020 02:02:[address] [facility] left hand lac with cellulitis and lympha ngitis with extensor tendon injury left hand lac with cellulitis and lymphangitis with extensor tendon injury Diagnosis 02/16/2020 11:53:[address] [facility] depression depression Diagnosis 01/15/2020 08:30:00 AM [facility] unspecified psychosis unspecified psychosis Diagnosis 01/15/2020 08:30:[address] [facility] psychosis psychosis Diagnosis 11/26/2019 02:30:00 AM [facility] E66.01 [id number] Obesity, morbid, BMI 50 or higher Problem 10/09/2020 12:00:00 AM EDT eCW1 ([facility]) G47.30 [id number] Sleep apnea in adult Problem 09/27/2020 12:0 0:00 AM EDT eCW1 ([facility]) B17.10 [id number] Acute hepatitis C virus infection without hepatic coma Problem 09/20/2020 12:00:00 AM EDT eCW1 ([facility]) F12.10 Cannabis abuse, uncomplicated Cannabis Use Disorder, M ild Condition 09/01/2020 12:00:00 AM EDT [facility] ([facility]) Z72.0 Tobacco use Tobacco Use Disorder, Mild Condition 0 09/01/2020 12:00:00 AM EDT [facility] ([facility]) 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 stimulant dependence, uncomplicate d Stimulant Use Disorder, Severe: Other or unspecified stimulant Condition 09/01/2020 12:00:00 AM EDT [facility] ([facility]) F43.9 Reaction to severe stress, unspecified U nspecified Trauma- and Stressor- Related Disorder Condition 09/01/2020 12:00:00 AM EDT [facility] ([facility]) F29 Unspecified psychosis not du e to a substance or known physiological condition Unspecified Schizophrenia Spectrum and Other Psychotic Disorder Condition 09/01/2020 12:00:00 AM EDT [facility] ([facility]) B18.2 [id number] Chronic hepatitis C without hepatic coma Problem 05/03/2020 12:00:00 AM EDT eCW1 ([facility]) Z86.14 [id number] History of MRSA infection Problem 04/21/2020 12:00:00 AM EST eCW1 ([facility]) F19.11 [id number] History of intravenous drug abuse Pr oblem 04/21/2020 12:00:00 AM EST eCW1 ([facility]) F25.0 [id number] Schizoaffective disorder, bipolar type Pr oblem 04/21/2020 12:00:00 AM EST eCW1 ([facility]) Z68.42 500003306 BMI 45.0-49.9, adult Problem 04/21/2020 12:0 0:00 AM EST eCW1 ([facility]) F43.9 Reaction to severe stress, unspecified U nspecified Trauma- and Stressor- Related Disorder Condition 03/09/2020 12:00:00 AM EST [facility] ([facility]) 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 stimulant dependence, uncomplicate d Stimulant Use Disorder, Moderate: Other or unspecified stimulant Condition 03/09/2020 12:00:00 AM EST [facility] ([facility]) Z72.0 Tobacco use Tobacco Use Disorder, Mild Condition 0 03/09/2020 12:00:00 AM EST [facility] ([facility]) F29 Unspecified psychosis not du e to a substance or known physiological condition Unspecified Schizophrenia Spectrum and Other Psychotic Disorder Condition 03/09/2020 12:00:00 AM EST [facility] ([facility]) [id number] Tobacco use Tobacco use Condition 11/13/2019 12:00:00 AM EDT [facility] ([facility]) 00147214 Depressive episode, unspecified Depressive episo de, unspecified Condition 11/13/2019 12:00:00 AM EDT [facility] ([facility]) 51514746 Depressive episode, unspecified Depressive episo de, unspecified Condition 11/13/2019 12:00:00 AM EDT [facility] ([facility]) 317611854 Tobacco use Tobacco use Condition 11/13/2019 12:00:00 AM EDT [facility] ([facility]) 68024411 Depressive episode, unspecified Depressive episo de, unspecified Condition 11/13/2019 12:00:00 AM EDT [facility] ([facility]) 206386971 Tobacco use Tobacco use Condition 11/13/2019 12:00:00 AM EDT [facility] ([facility]) 27019772 Depressive episode, unspecified Depressive episo de, unspecified Condition 11/13/2019 12:00:00 AM EDT [facility] ([facility]) 621238371 Tobacco use Tobacco use Condition 11/13/2019 12:00:00 AM EDT [facility] ([facility]) 709796425 Tobacco use Tobacco use Condition 11/13/2019 12:00:00 AM EDT [facility] ([facility]) 44761573 Depressive episode, unspecified Depressive episo de, unspecified Condition 11/13/2019 12:00:00 AM EDT [facility] ([facility]) 37692316 Depressive episode, unspecified Depressive episo de, unspecified Condition 11/13/2019 12:00:00 AM EDT [facility] ([facility]) 300353597 Tobacco use Tobacco use Condition 11/13/2019 12:00:00 AM EDT [facility] ([facility]) 13620151 Depressive episode, unspecified Depressive episo de, unspecified Condition 11/13/2019 12:00:00 AM EDT [facility] ([facility]) 621355411 Tobacco use Tobacco use Condition 11/13/2019 12:00:00 AM EDT [facility] ([facility]) 62369592 Depressive episode, unspecified Depressive episo de, unspecified Condition 11/13/2019 12:00:00 AM EDT [facility] ([facility]) 178165321 Tobacco use Tobacco use Condition 11/13/2019 12:00:00 AM EDT [facility] ([facility]) 00238998 Depressive episode, unspecified Depressive episo de, unspecified Condition 11/13/2019 12:00:00 AM EDT [facility] ([facility]) 424583098 Tobacco use Tobacco use Condition 11/13/2019 12:00:00 AM EDT [facility] ([facility]) 275225268 Tobacco use Tobacco use Condition 11/13/2019 12:00:00 AM EDT [facility] ([facility]) 502362919 Tobacco use Tobacco use Condition 11/13/2019 12:00:00 AM EDT [facility] ([facility]) 548388847 Tobacco use Tobacco use Condition 11/13/2019 12:00:00 AM EDT [facility] ([facility]) 37304614 Depressive episode, unspecified Depressive episo de, unspecified Condition 11/13/2019 12:00:00 AM EDT [facility] ([facility]) 79596809 Depressive episode, unspecified Depressive episo de, unspecified Condition 11/13/2019 12:00:00 AM EDT [facility] ([facility]) 76901863 Depressive episode, unspecified Depressive episo de, unspecified Condition 11/13/2019 12:00:00 AM EDT [facility] ([facility]) 50004377 Depressive episode, unspecified Depressive episo de, unspecified Condition 11/13/2019 12:00:00 AM EDT [facility] ([facility]) 611809261 Tobacco use Tobacco use Condition 11/13/2019 12:00:00 AM EDT [facility] ([facility]) 54529764 Depressive episode, unspecified Depressive episo de, unspecified Condition 11/13/2019 12:00:00 AM EDT [facility] ([facility]) 639755348 Tobacco use Tobacco use Condition 11/13/2019 12:00:00 AM EDT [facility] ([facility]) 269830120 Tobacco use Tobacco use Condition 11/13/2019 12:00:00 AM EDT [facility] ([facility]) 219295975 Tobacco use Tobacco use Condition 11/13/2019 12:00:00 AM EDT [facility] ([facility]) 00466690 Depressive episode, unspecified Depressive episo de, unspecified Condition 11/13/2019 12:00:00 AM EDT [facility] ([facility]) 31511600 Depressive episode, unspecified Depressive episo de, unspecified Condition 11/13/2019 12:00:00 AM EDT [facility] ([facility]) 20945543 Depressive episode, unspecified Depressive episo de, unspecified Condition 11/13/2019 12:00:00 AM EDT [facility] ([facility]) 991466567 Tobacco use Tobacco use Condition 11/13/2019 12:00:00 AM [facility] 23991135 Depressive episode, unspecified Depressive episo de, unspecified Condition 11/13/2019 12:00:00 AM EDT [facility] ([facility]) 764682945 Tobacco use Tobacco use Condition 11/13/2019 12:00:00 AM EDT [facility] ([facility]) 376222821 Tobacco use Tobacco use Condition 11/13/2019 12:00:00 AM EDT [facility] ([facility]) 112035231 Tobacco use Tobacco use Condition 11/13/2019 12:00:00 AM EDT [facility] ([facility]) 14794679 Depressive episode, unspecified Depressive episo de, unspecified Condition 11/13/2019 12:00:00 AM EDT [facility] ([facility]) 72582165 Depressive episode, unspecified Depressive episo de, unspecified Condition 11/13/2019 12:00:00 AM EDT [facility] ([facility]) 20119467 Depressive episode, unspecified Depressive episo de, unspecified Condition 11/13/2019 12:00:00 AM EDT [facility] ([facility]) 429506646 Tobacco use Tobacco use Condition 11/13/2019 12:00:00 AM EDT [facility] ([facility]) 96749802 Depressive episode, unspecified Depressive episo de, unspecified Condition 11/13/2019 12:00:00 AM EDT [facility] ([facility]) 348052815 Tobacco use Tobacco use Condition 11/13/2019 12:00:00 AM EDT [facility] ([facility]) 52292257 Depressive episode, unspecified Depressive episo de, unspecified Condition 11/13/2019 12:00:00 AM EDT [facility] ([facility]) 455124382 Tobacco use Tobacco use Condition 11/13/2019 12:00:00 AM EDT [facility] ([facility]) 65766198 Depressive episode, unspecified Depressive episo de, unspecified Condition 11/13/2019 12:00:00 AM EDT [facility] ([facility] 143198667 Tobacco use Tobacco use Condition 11/13/2019 12:00:00 AM EDT [facility] ([facility]) Surgeries/Procedures Procedure Description Date Indications Data Source(s) Brief Individual Psychotherapy - 30 min 09/01/2020 12:00:00 AM EDT - 09/01/2020 12:00:00 AM EDT [facility] ([facility]) Brief Individual Psychotherapy - 30 min 09/01/2020 12: 00:00 AM EDT [facility] ([facility]) MHC Telemed E/M Lvl 3--Est pt 08/09/2020 12:00:00 AM EDT - 08/09/2020 12:00:00 AM EDT [facility] ([facility]) Telemed A/O 30" 08/09/2020 12:00:00 AM EDT [facility] ([facility]) MHC Telemed E/M Lvl 3--Est pt 08/09/2020 12:00:00 AM E DT [facility] ([facility]) MHC Telemed E/M Lvl 3--Est pt 08/03/2020 12:00:00 AM EDT - 08/03/2020 12:00:00 AM EDT [facility] ([facility]) MHC Telemed E/M Lvl 3--Est pt 08/03/2020 12:00:00 AM E DT [facility] ([facility]) Brief Individual Psychotherapy - 30 min 07/28/2020 12:00:00 AM EDT - 07/28/2020 12:00:00 AM EDT [facility] ([facility]) Brief Individual Psychotherapy - 30 min 07/28/2020 12: 00:00 AM EDT [facility] ([facility]) MHC Telemed E/M Lvl 3--Est pt 07/01/2020 12:00:00 AM EDT - 07/01/2020 12:00:00 AM EDT [facility] ([facility]) Telemed A/O 30" 07/01/2020 12:00:00 AM EDT [facility] ([facility]) MHC Telemed E/M Lvl 3--Est pt 07/01/2020 12:00:00 AM E DT [facility] ([facility]) Brief Individual Psychotherapy - 30 min 06/30/2020 12:00:00 AM EDT - 06/30/2020 12:00:00 AM EDT [facility] ([facility]) Brief Individual Psychotherapy - 30 min 06/30/2020 12: 00:00 AM EDT [facility] ([facility]) Extended Individual Psychotherapy - 45 min 06/16/2020 12:00:00 AM EDT - 06/16/2020 12:00:00 AM EDT [facility] ([facility]) Extended Individual Psychotherapy - 45 min 12:00:00 AM EDT [facility] ([facility]) MHC Telemed E/M Lvl 3--Est pt 06/10/2020 12:00:00 AM EDT - 06/10/2020 12:00:00 AM EDT [facility] ([facility]) Telemed A/O 30" 06/10/2020 12:00:00 AM EDT [facility] ([facility]) MHC Telemed E/M Lvl 3--Est pt 06/10/2020 12:00:00 AM E DT [facility] ([facility]) Telemed Diagnostic Eval 06/03/2020 12:00 :00 AM EDT - 06/03/2020 12:00:00 AM EDT [facility] ([facility]) Telemed Diagnostic Eval 06/03/2020 12:00:00 AM EDT [facility] ([facility]) HEPATITIS A VACCINE ADULT FOR INTRAMUSCULAR USE 2020 12:00:00 AM EDT eCW1 ([facility]) Brief Individual Psychotherapy - 30 min 05/09/2020 12:00:00 AM EDT - 05/09/2020 12:00:00 AM EDT [facility] ([facility]) Brief Individual Psychotherapy - 30 min 05/09/2020 12: 00:00 AM EDT [facility] ([facility]) Extended Individual Psychotherapy - 45 min 12:00:00 AM EST [facility] ([facility]) Extended Individual Psychotherapy - 45 min 03/31/2020 12:00:00 AM EST - 03/31/2020 12:00:00 AM EST [facility] ([facility]) Telemed Diagnostic Eval 03/30/2020 12:00:00 AM EST [facility] ([facility]) Telemed Diagnostic Eval 03/30/2020 12:00 :00 AM EST - 03/30/2020 12:00:00 AM EST [facility] ([facility]) Extended Individual Psychotherapy - 45 min 12:00:00 AM EST [facility] ([facility]) Extended Individual Psychotherapy - 45 min 03/14/2020 12:00:00 AM EST - 03/14/2020 12:00:00 AM EST [facility] ([facility]) Extended Individual Psychotherapy - 45 min 12:00:00 AM EST [facility] ([facility]) Extended Individual Psychotherapy - 45 min 03/09/2020 12:00:00 AM EST - 03/09/2020 12:00:00 AM EST [facility] ([facility]) [id number]Psychotherapy 02/22/2020 12:00:00 AM EST [facility] ([facility]) [id number]"Psychotherapy 12:00:00 AM EST - 02/22/2020 12:00:00 AM EST [facility] ([facility]) Psychiatric Diagnostic Evaluation with Medical Services 02/16/2020 12:00:00 AM EST [facility] ([facility]) Psychiatric Diagnostic Evaluation with Medical Services 02/16/2020 12:00:00 AM EST - 02/16/2020 12:00:00 AM EST [facility] ([facility]) [id number]"Psychotherapy 02/08/2020 12:00:00 AM EST [facility] ([facility]) [id number]"Psychotherapy 0 12:00:00 AM EST - 02/08/2020 12:00:00 AM EST [facility] ([facility]) Psychiatric Diagnostic Evaluation (Non-Medical) 2019 12:00:00 AM EST [facility] ([facility]) Psychiatric Diagnostic Evaluation (Non-Medical) 02/05/2020 12:00:00 AM EST - 02/05/2020 12:00:00 AM EST [facility] ([facility]) Psychiatric Diagnostic Evaluation (Non-Medical) 2019 12:00:00 AM EST [facility] ([facility]) Psychiatric Diagnostic Evaluation (Non-Medical) 02/01/2020 12:00:00 AM EST - 02/01/2020 12:00:00 AM EST [facility] ([facility]) Psychiatric Diagnostic Evaluation (Non-Medical) 2019 12:00:00 AM EST [facility] ([facility]) Psychiatric Diagnostic Evaluation (Non-Medical) 01/25/2020 12:00:00 AM EST - 01/25/2020 12:00:00 AM EST [facility] ([facility]) COMPREHENSIVE METABOLIC PANEL <td>COMPREHENSIVE METABO LIC PANEL</td><td>Routine</td><td>12/01/2019 12:15 PM EDT</td><td></td><td> </td> 12/01/2019 12:15:00 PM [facility] 25 HYDROXY INCLUDES FRACTIONS IF PERFORMED <td>VITAMIN D 25 HYDROXY, TOTAL</td><td>Routine</td><td>12/01/2019 12:15 PM EDT</td><td></td><td> </td> 12/01/2019 12:15:00 PM [facility] Diagnostic psychiatric interview (procedure) 0 12:00:00 AM EDT [facility]) Diagnostic psychiatric interview (procedure) 0 12:00:00 AM EDT [facility]) Diagnostic psychiatric interview (procedure) 0 12:00:00 AM EDT [facility]) Diagnostic psychiatric interview (procedure) 0 12:00:00 AM EDT [facility]) Diagnostic psychiatric interview (procedure) 0 12:00:00 AM EDT [facility]) Diagnostic psychiatric interview (procedure) 0 12:00:00 AM EDT [facility]) Results ID Date Data Source [id number] 05/11/2020 12:33:00 AM EDT [facility] Name Value Range Interpretation Code Description Data Anahi rce(s) Supporting Document(s) COVID-19 RT-PCR NASAL SWAB Not Detected Not Detected [facility] A not detected (negative) test [...] developed and its performance characteristics determined by [employer] and verified at [employer]. It has not been cleared or approved by the U.S. Food and Drug Administration for diagnostic use. This test has been authorized by FDA under an EUA for use by authorized laboratories. Results should be used in conjunction with clinical findings, and should not form the sole basis for a diagnosis or treatment decision. Methods: SARS-CoV-2 Multiplex RT-PCR Assay ID Date Data Source [id number] 05/06/2020 12:30:00 PM EDT [facility] Name Value Range Interpretation Code Description Data Anahi rce(s) Supporting Document(s) SARS-CoV-2 (COVID-19) N gene [Presence] in Respiratory specimen by TAISHA with probe detection NEGATIVE [facility] This lab was ordered by [facility] and reported by [employer]. ID Date Data Source [id number] 05/06/2020 12:00:00 AM EDT [facility] Name Value Range Interpretation Code Description Data Anahi rce(s) Supporting Document(s) Carestart Rapid COVID Antigen Test Negative [facility] This lab was reported by [facility]. ID Date Data Source [id number] 04/19/2020 05:00:00 AM EST [facility] Name Value Range Interpretation Code Description Data Anahi rce(s) Supporting Document(s) UREA NITROGEN (BUN) 19.0 mg/dL [facility] ([facility]) Creatinine [Interpretation] in Urine 0.95 mg/dL [facility] ([facility]) Glucose [Mass/volume] in Urine collected for unspecified duratio n 109.0 mg/dL [facility] ([facility]) Sodium [Moles/volume] in Serum, Plasma or Blood 139.0 mmol/L [facility] ([facility]) eGFR MITZI 127.0 mL/min/1.73m2 [facility] ([facility]) eGFR NON-AFR. SERBIAN 109.0 mL/min/1.73m2 [facility] ([facility]) BUN/CREATININE RATIO NOT APPLICABLE [facility] ([facility]) Potassium [Mass/volume] in Blood 4.3 mmol/L [facility] ([facility]) Carbon dioxide [VFr/PPres] in Gas delivery system 22.0 mmol/L [facility] ([facility]) Chloride [Moles/volume] in Serum, Plasma or Blood 106.0 mmol/L [facility] ([facility]) PROTEIN, TOTAL 7.0 g/dL [facility] ([facility]) Calcium [Moles/volume] in Urine collected for unspecified durati on 9.2 mg/dL [facility] ([facility]) Microalbumin [Mass/time] in Urine collected for unspecified dura tion 4.2 g/dL [facility] ([facility]) Globulin [Mass/time] in 24 hour Urine 2.8 g/dL (calc) [facility] ([facility]) ALBUMIN/GLOBULIN RATIO 1.5 (calc) NETSMA RT ([facility]) BILIRUBIN, TOTAL 0.3 mg/dL [facility]) Alkaline phosphatase [Enzymatic activity/volume] in Se rum, Plasma or Blood 86.0 U/L [facility] ([facility]) AST 34.0 U/L [facility]) Color of Peritoneal dialysis fluid YELLOW [facility] ([facility]) ALT 47.0 U/L [facility]) Appearance of Abdomen TURBID [facility] ([facility]) Specific gravity of Pericardial fluid by Refractometry 1.027 [facility] ([facility]) pH of Lower respiratory specimen 6.0 [facility] ([facility]) Glucose [Mass/volume] in Urine collected for unspecified duration N EGATIVE [facility] ([facility]) Ketones [Presence] in Blood by Tablet NEGATIVE [facility] ([facility]) OCCULT BLOOD NEGATIVE [facility] Protein [Mass/volume] in Lower respiratory specimen NEGATIVE [facility] ([facility]) Bilirubin [Presence] in Peritoneal fluid NEGATIVE [facility] ([facility]) Leukocyte esterase [Presence] in Body fluid by Automated test st rip NEGATIVE [facility] ([facility]) WBC NONE SEEN [facility] ([facility] ) Nitrite [Presence] in Urine by Test strip NEGATIVE [facility] ([facility]) RENAL EPITHELIAL CELLS DNR NETSMAR T ([facility]) TRANSITIONAL EPITHELIAL CELLS DNR [facility] ([facility]) RBC NONE SEEN [facility] ([facility] ) SQUAMOUS EPITHELIAL CELLS 0-5 [facility] ([facility]) Calcium oxalate crystals [Presence] in Urine sediment by Light m icroscopy DNR [facility] ([facility]) Bacteria [Presence] in Prostatic fluid by Light microscopy NONE SEEN [facility] ([facility]) Triple phosphate crystals [Presence] in Urine sediment by Li ght microscopy DNR [facility] ([facility]) URIC ACID CRYSTALS DNR [facility] ([facility]) HYALINE CAST NONE SEEN [facility]) Amorphous sediment [Presence] in Urine [...] Health) MCHC 34.8 g/dL [facility] ([facility] RDW 13.6 % [facility]) [...] Health) HCV RNA, QUANTITATIVE REAL TI [facility] ([facility]) Enhanced PDF Report [id number] [facility] ([facility]) Comment [Interpretation] Left eye Narrative Ophthalmometer [facility] ([facility]) HCV RNA, QUANTITATIVE REAL TI 2.67 Log IU/mL [facility] ([facility]) HCV RNA, QUANTITATIVE REAL TIME 470.0 IU/mL [facility] ([facility]) ID Date Data Source [id number] 04/27/2020 11:47:00 AM EST [facility] Received: 04/20/2020 at 05:42:00 QPT : [facility], [address], [address] [place] [address], [phone], Alek Echavarria MD Received: 04/20/2020 at 05:42:00 QPT : [facility], [address], [address] [place] [address], [phone], Alek Echavarria MD Received: 04/20/2020 at 05:42:00 QPT : [facility], [address], [address] [place] [address], [phone] MD Received: 04/20/2020 at 05:42:00 QPT : [facility], [address], [address] [place] [address], [phone] MD Received: 04/20/2020 at 05:42:00 QPT : [facility], [address], [address] [place] [address], [phone] MD Received: 04/20/2020 at 05:42:00 QPT : [facility], [address], [address] [facility], [place], [address], Alek Echavarria MD Name Value Range Interpretation [...] normal [facility] ID Date Data Source [id number] 04/27/2020 11:47:00 AM EST [facility] Received: 04/20/2020 at 05:42:00 QPT : [facility], [address], [address] [place] [address], [phone], Alek Echavarria MD Received: 04/20/2020 at 05:42:00 QPT : [facility], [address], [address] [place] [address], [phone] MD Received: 04/20/2020 at 05:42:00 QPT : [facility], [address], [address] [place] [address], [phone] MD Received: 04/20/2020 at 05:42:00 QPT : [facility], [address], [address] [place] [address], [phone] MD Received: 04/20/2020 at 05:42:00 QPT : [facility], [address], [address] [place], [phone], Alek Echavarria MD Received: 04/20/2020 at 05:42:00 QPT : [facility], [address], [address] [facility], [place], [address], Alek Echavarria MD Name Value Range Interpretation [...] [facility] ID Date Data Source [id number] 04/27/2020 11:47:00 AM EST [facility] Received: 04/20/2020 at 05:42:00 QPT : [facility], [address], [address] [place], [phone], Alek Echavarria MD Received: 04/20/2020 at 05:42:00 QPT : [facility], [address], [address] [place], [phone] MD Received: 04/20/2020 at 05:42:00 QPT : [facility], [address], [address] [place] [address], [phone] MD Received: 04/20/2020 at 05:42:00 QPT : [facility], [address], [address] [place] [address], [phone] MD Received: 04/20/2020 at 05:42:00 QPT : [facility], [address], [address] [place] [address], [phone] MD Received: 04/20/2020 at 05:42:00 QPT : [facility], [address], [address] [place] [address], [phone] MD Name Value Range Interpretation Code Description [...] in Blood by Automated count 2701 cells/uL [id number] Normal (applies to non-numeric results) [facility] [...] results) [facility] ID Date Data Source [id number] 04/27/2020 11:47:00 AM EST [facility] Received: 04/20/2020 at 05:42:00 QPT : [facility], [address], [address] [place], [phone], Alek Echavarria MD Received: 04/20/2020 at 05:42:00 QPT : [facility], [address], [address] [place] [address], [phone], Alek Echavraria MD Received: 04/20/2020 at 05:42:00 QPT : [facility], [address], [address] [place] [address], [phone], Alek Echavarria MD Received: 04/20/2020 at 05:42:00 QPT : [facility], [address], [address] [place] [address], [phone] MD Received: 04/20/2020 at 05:42:00 QPT : [facility], [address], [address] [place] [address], [phone] MD Received: 04/20/2020 at 05:42:00 QPT : [facility], [address], [address] [place] [address], [phone], Alek Echavarria MD Name Value Range Interpretation [...] a current activeinfection. ID Date Data Source [id number] 04/27/2020 11:47:00 AM EST [facility] Received: 04/20/2020 at 05:42:00 QPT : [facility], [address], [address] [place], [phone] MD Received: 04/20/2020 at 05:42:00 QPT : [facility], [address], [address] [place], [phone] MD Received: 04/20/2020 at 05:42:00 QPT : [facility], [address], [address] [place], [phone] MD Received: 04/20/2020 at 05:42:00 QPT : [facility], [address], [address] [place], [phone] MD Received: 04/20/2020 at 05:42:00 QPT : [facility], [address], [address] [place], [phone] MD Received: 04/20/2020 at 05:42:00 QPT : [facility], [address], [address] [place], [phone] MD Name Value Range Interpretation Code Description [...] of a current active HCV infection. COMMENT [facility] This test was performed using Real-Time Polymerase ChainReaction.Reportable Range: 15 IU/mL to 100,000,000 IU/mL(1.18 Log IU/mL to 8.00 Log IU/mL).The analytical performance characteristics of thisassay have been determined by [employer].The modifications have not been cleared or approved bythe FDA. This assay has been validated pursuant to theCLIA regulations and is used for clinical purposes.For more information on this test, go to:http://education.Wis.dm.Twinklr/faq/LQQ40l3(This link is being provided for informational/educational purposes only.)This assay is intended for use as an aid in thediagnosis of HCV infection and the management ofHCV infected patients undergoing anti-viral therapy. ID Date Data Source [id number] 04/27/2020 11:47:00 AM EST [facility] Received: 04/20/2020 at 05:42:00 QPT : [facility], [address], [address] [place] [address], [phone], Alek Echavarria MD Received: 04/20/2020 at 05:42:00 QPT : [facility], [address], [address] [place] [address], [phone] MD Received: 04/20/2020 at 05:42:00 QPT : [facility], [address], [address] [place] [address], [address] [place], [place] [address]Alek MD Received: 04/20/2020 at 05:42:00 QPT : [facility], [address], [address] [place] [address], [phone] MD Received: 04/20/2020 at 05:42:00 QPT : [facility], [address], [address] [place] [address], [phone] MD Received: 04/20/2020 at 05:42:00 QPT : [facility], [address], [address] [place] [address], [phone] MD Name Value Range Interpretation Code Description Data Anahi rce(s) Supporting Document(s) Reagin Ab [Presence] in Serum by RPR NON-REACTIVE NON-REACTIV E Normal (applies to non-numeric results) [facility] ID Date Data Source [id number] 04/11/2020 02:11:00 PM EST [facility] [address] [place] [address] PHONE: [phone] FAX: [phone] Name .................. : ARELY LECHUGA Acct Number.................. : [id number] ROOM. ................. : [facility] Number ................... : [id number] Stay type ............. : E/R Discharge Date......... ... : 04/11/20 Admit Date ......... : 04/11/20 Admit Phys .................... : [facility] Date of ....... : 1995 Family Phys ................... : NONSTAFF Phone .................. : [phone] Age ................................ : 24 Film# .................. .:[id number] Sex ................................. : M Unsigned transcriptions are preliminary reports and do not represent a medical or legal document HAND COMPLETE-3 OR MORE S L [id number] COMPLETE:04/11/20 06:26 RLB 4826 Reason(s): fall, injury [...] rce(s) Supporting Document(s) ID Date Data Source [id number] 04/11/2020 12:11:00 AM EST [facility] 1 OrderSheet [facility] Emergency Department [address] [place] [address] Phone #: ext- [phone] 04/11/2020 00:11 Patient: [...] Name Value Range Interpretation Code Description Data [facility]) Supporting Document(s) ID Date Data Source [id number] 04/11/2020 12:11:00 AM [place] [address] Medication Reconciliation Report [facility] Emergency Department [address] [place] [address] Phone #: ext- [phone] 04/11/2020 00:11 Patient: ANKUSH MCGEE Sex: M [...] Code Description Data Anahi e(s) Supporting Document(s) ID Date Data Source [id number] 04/11/2020 12:11:00 AM [facility] 1 Medication Administration Record [facility] Emergency Department [address] [place] [address] Phone #: ext- [phone] 00:11 Patient: ANKUSH MCGEE Sex: M : 1995 Age: 24yWeight: 149.6 kgHeight/Length: 78 inBMI: 38.1ALLERGIES: No Known Drug AllergyDate/Time Medication Administered Medication Ordered Name Value Range Interpretation Code Description Data Anahi rce(s) Supporting Document(s) ID Date Data Source [id number] 04/11/2020 12:11:00 AM EST [facility] 1 General Instructions [facility] Emergency Department [address] [place] [address] Phone #: ext- [phone] 04/11/2020 00:11 Patient: [...] primary care provider for bloodpressure management.Follow-up with: [facility], , , [address] [place], [address] Follow up in one week if not [...] bleeding can still happen, 2 General Instructions [facility] Emergency Department [address] [place] [address] Phone #: ext- [phone] 04/11/2020 00:11 Patient: [...] chairs or wobbly ladders. 3 General Instructions [facility] Emergency Department [address] [place] [address] Phone #: ext- [phone] 04/11/2020 00:11 Patient: [...] the reading, especially if it affects treatment.Call 445Dath 114 if any of these happen: Trouble breathing [...] any of these happen: 4 General Instructions [facility] Emergency Department [address] [place] [address] Phone #: ext- [phone] 04/11/2020 00:11 Patient: ANKUSH MCGEE Sex: M : 1995 Age: 24y Repeated mechanical falls, or unexplained falls Dizziness Severe headache Blood in vomit, stools (black or red color) [id number] [employer]. [address] [place] [address]. All rights reserved. This information is not [...] alternate ice and heat. You may use lacj-fjn-[id number] pain medicine to control pain, unless another [...] any of these occur: 5 General Instructions [facility] Emergency Department [address] [place] [address] Phone #: ext- [phone] 04/11/2020 00:11 - Patient: ANKUSH MCGEE Sex: M : 1995 Age: 24y Pain or swelling increases Fingers or hand becomes cold, blue, numb, or tingly [phone] [employer]. [address] [place] [address]. All rights reserved. This information is not intended as asubstitute for professional medical care. Always follow your healthcare professional's instructions. You have been given the following additional information: Mechanical Fall Hand Sprain(Electronically signed by Сергей Emery 04/11/2020 05:01) Name Value Range Interpretation Code Description Data Anahi rce(s) Supporting Document(s) ID Date Data Source [id number] 04/11/2020 12:11:00 AM EST [facility] 1 Clinical Report - Nurses [facility] Emergency Department [address] [place] [address] Phone #: ext- [phone] 04/11/2020 00:11 Patient: [...] NEGATIVE. No suspected or confirmedsigns of infection present.VIKRAM COMA SCORE: 15- eyes open- spontaneous (4); [...] to Coronavirus. 2 Clinical Report - Nurses [facility] Emergency Department [address] [place] [address] Phone #: [phone]- [phone] 04/11/2020 00:11 Patient: ANKUSH MCGEE Sex: M [...] 04/11/20. 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 --00:36 04/11/20 La Maldonado R.N. 00:37 04/11/2020 Motrin 800 mg PO X1 dose: 800 mg (NOW x1) was refused by patient. --00:37 04/11/20 La Maldonado R.N.DISPOSITION / DISCHARGE Gore Coma Scale: 15- eyes open- spontaneous (4); best verbal response- oriented (5); best motor response- obeys commands (6). Condition at departure: unchanged. No learning barriers present. Discharge instructions provided and reviewed with the patient. Reviewed ice and elevation instructions. 3 Clinical Report - Nurses [facility] Emergency Department [address] [place] [address] Phone #: ext- [phone] 04/11/2020 00:11 Patient: ANKUSH MCGEE Sex: M : 1995 Age: 24y Reviewed referral to family practice for followup. Patient verbalized understanding. Written instructions provided in Surinamese. The patient was discharged home. He left [...] rce(s) Supporting Document(s) ID Date Data Source [id number] 04/11/2020 12:11:00 AM EST [facility] 1 Clinical Report - Physicians/Mid Levels [facility] Emergency Department [address] [place] [address] Phone #: ext- [phone] 04/11/2020 00:11 Patient: [...] Tendon function 2 Clinical Report - Physicians/Mid [facility] Emergency Department [address] [place] [address] Phone #: ext- [phone] 04/11/2020 00:11 Patient: [...] provider for blood pressure management. Follow-up with: [facility], , , [address] [place], [address] Follow up in one week if not better. Reason for referral: evaluation. 3 Clinical Report - Physicians/Mid Levels [facility] Emergency Department [address] [place] [address] Phone #: ext- [phone] 04/11/2020 00:11 Patient: ANKUSH MCGEE Sex: M : 1995 Age: 24y(Electronically signed by Сергей Emery 04/11/2020 05:01) Name Value Range Interpretation Code Description Data Anahi rce(s) Supporting Document(s) ID Date Data Source [id number] 03/30/2020 05:24:12 PM [facility] XR HAND 3 OR MORE VIEWS [id number] RESUL TInterpreted by:Tyrone Trevizo [facility] ADAlinical history: Left wrist and hand painViews: 4 [...] rce(s) Supporting Document(s) ID Date Data Source [id number] 03/30/2020 05:23:42 PM [facility] XR WRIST 3 OR MORE VIEWS [id number] RESU LTInterpreted by:JAMIA Brookslinical history: Left wrist [...] rce(s) Supporting Document(s) ID Date Data Source [id number] 03/30/2020 05:18:49 PM [facility] Name Value Range Interpretation Code Description Data Anahi rce(s) Supporting Document(s) Progress Note [facility] QMOBYp2qAuKOCsCg45/RBUguBJCio2GhUZulYZo2UMssAQXwN6RzTZU3wH6cHNH2BImAMrTkQnSwUaQu [facility] [file] HULuUm9wWMKRBa7+YTiejEAewYkuZIYTOrY9GQMfRUpbDZEEDb3Q ID Date Data Source [id number] 02/27/2020 01:26:00 AM EST [facility] Name Value Range Interpretation Code Description Data Anahi rce(s) Supporting Document(s) SARS-CoV-2 (COVID 19) NEGATIVE - SARS-CoV-2 (COVID19) [facility] This lab was ordered by [facility] a nd reported by [facility]. ID Date Data Source [id number] 02/17/2020 08:34:37 AM EST [facility] Name Value Range Interpretation Code Description Data Anahi rce(s) Supporting Document(s) Progress Note [facility] GWIFOg3vZaDCDhGh68/TONulZIAeh6WbQWlyHHr0MJwxHYXoI7ZoVAV5wU9rIHV5ZDjQBpSnFnOxEnPo lbm [file] o2WHGyOFyiWSM1ThDbIJUuGOPzPT4sGAFBEu7+QPftvUNybNslCLKRVuqiNvRAQsRmJJ4WIZr= ID Date Data Source [id number] 02/16/2020 05:12:55 PM [facility] Name Value Range Interpretation Code Description Data Anahi rce(s) Supporting Document(s) Progress Note [facility] GVJGVv3xArQLSkQl49/VVJhzYEPjj2QpLNmfTXl3AQuwUTUyG0HlAKL5kR1uPYG0NQsPLmZwPxFsKcV9 lbm [file] AgICAgICAgICAgICAgICAgICAgICAgICAgICAgICAgICAgICAgICAgICAgICAgICAgICAgICAgICAgIC QlFXZiLCSjGTIsQYMkZX1NKEJpLIRfZSEdWTBuWIWw ICAgICAgICAgICAgICAgICAgICAgICAgICAgICAgICAgICAgICAgICAgICAgICAgICAgICAgICAgICAg FGKlOUSxOLWgRDDaSRVmDZJdBFYoKMIfQJ2UCWRkYACiGLVjDFLgVJEqLYWcWLIaJNVjHCRdMRTyISAs ICAgICAgICAgICAgICAgICAgICAgICAgICAgICAgIC TzBTSpQMXpFRMgJLKpPHWkEJXoSAVqQPUcUGCvUPVcPQCrNX9QAVJoEUOwRVQcTLRqMGEzVOQqPDFkOT AgICAgICAgICAgICAgICAgICAgICAgICAgICAgICAgICAgICAgICAgICAgICAgICAgICAgICAgICAgIC TiNVCzWLGjWPZaCCPaOXQaVQ0FABJtTOJoRTUeDWQq ICAgICAgICAgICAgICAgICAgICAgICAgICAgICAgICAgICAgICAgICAgICAgICAgICAgICAgICAgICAg DOBwQJNyZTOlFKYhQUQuHIQeACKgECPfQKDaIV4TUPTwKMCyTUPaVSTaINVmKVKmPDAuJMXjSPHaXJRg ICAgICAgICAgICAgICAgICAgICAgICAgICAgICAgIC OoIEBnMUBjODBrJTDcKAVnDXQiHIBqBXAkYYLiIZZvOHWsUAOwKC5MWODnUBPsNVEyPQUoILWaTJJqCY AgICAgICAgICAgICAgICAgICAgICAgICAgICAgICAgICAgICAgICAgICAgICAgICAgICAgICAgICAgIC HmTZZqSNCrJFRsLJQiVIYuQERmII8OTJClILRbVTLt ICAgICAgICAgICAgICAgICAgICAgICAgICAgICAgICAgICAgICAgICAgICAgICAgICAgICAgICAgICAg ICZtTOHfRHMcRWHvGBXtJYUrSXGzSGYoWSGnRASeIB4ROSYjGAOgBTPpHAOnJAFzAODdOYMpKFQrWDEu ICAgICAgICAgICAgICAgICAgICAgICAgICAgICAgIC OlPPLaNKEaNLVzZCBxSTHcDMAiZYDtOQQpHOUtUHVlRNRhSUShQXRaLR1KCNGcGVJdGAAnLXFfHVViIV AgICAgICAgICAgICAgICAgICAgICAgICAgICAgICAgICAgICAgICAgICAgICAgICAgICAgICAgICAgIC PtGWWmLIAoPBQuMETuLMVxXNRtVIWyMT4SLC50tPWk k3I1TMXzYU7aocp/Tw7DKGshakVnhMXbQO7RMlLtBT1rae9MOcXjKH5bce2AQHsIJaYkY0U4gRLgAIUz NOQZTcEqC30lQUpmMu59VKukUSPoLsIlHVv1Yg8UBuMyL7jpQKGiSsM5PFStJeZmEBvxMN4Vu7BaoLEn DQo+Sf1EEF2pj7DuRAaiRCVpVN2hbc4UQUoLDlIzM4 EorbU6WYX8ZYOdHq4ZQBKdNSCqiIZaLVWnULKZYzAqH1SjgE35TTLOAf6+LVhihqHjLoyQDaP6KZZaf5 HeCDv9MO1JIYPkHSq0mPNuGNCcZ4Pvg3PkLc71DDNsWctdKbEbVLZZCQBoheTeU6JvDQCIXpViyJTdQq 9lNF3mMPNiVCC1ErIxHNYDAG4CYPElQPImsGUyFSUk NLNPTW2LAMjbDID2GWUxzaErjUMzUZtcJC1IQEGdvcSiYZTfFTDGDJt+Mr0OHG5db9TzAYkjFfDpUF8s sx4TPCeBEmXkH6V1bMYhI3F2YCntCu1HSQMpDPZePUFaBTWMSEkcCR2CBL6yajZ2QH1HtMVgGKVaDKRt hNNnLUj5U79gnMNyJGzhZH0VFKN+Daniel+Su7NNTImTE IoKJGkZnNfOQXFHbVnL8LgP4NIs7NpX8FcET04iZgnviWyHFsfHH6VAJ1tEDRcQWCWTV6EiCOmlT2hki FrEEQgTWFLJnYoM09znALmGGHbBGUaPCQqNm7EASLhW1DgxcOmxKxtcgNvRNSiLDOOQO5DLHrjatFybJ GltBujPF95kPxwVY5JZd8KImFlQO4ghx7WvPXiAi2Q BRUxYq5UCVTcDQUbPDSmJFG9NNYeJtJqIHeqUBMcLTHfSVT7MNMfRSYsHZ9RGqZnJTAkXYJ7IvnoRNMv XNElda3EHQAsMKBbBhS4YWKsVAKtABXjAGgdPRXgKGQxRTI0WNUxSYTwAF8AZyGdJVIdYRV9HpbiJNGv YJFxhf6KRRYgAFUtYCl1LaIqWCOyBSGfFFyjBAXmIY RmVRPaMXOcHGMeWI6OMgOiKNFmXYNxAdzeMQBrDOPxdm6AHTWmJWQhGrZaOKJxYJNaTLJpRPkmGXGdAV H4HhM3PDFkZGKdFL5DOlEzYJBhXXP7MbxjUZOkJXAawm8KUZDqYXYoYYQ8PYSaEVXdUIDpQNxnGSEmPM S8DBQ4RDIbNUNwXH7XKoMyUVUkDXI8VVoaRDAiHFIu ld6NFFLhBSDjXjG6ZLWoYWAoAQQsQUkdSNOpIZW6FmS4VJAbTRGeVJ1AAePvGLjuYOFJSpq5AQmiB9i0 XFAaPh7VI7Duf7BhIHSkYTREBZeoKH8qeiDzHCZkKs7VW3uMHncbLdP6SjGdYlYyAOn9KSP4ZiDdLlVo PSFxGwDzZGZvWQ4wHZQuUGlpIEEbEGZ3INUuPbEvSv NxKpZ9DWXrTaH5DeO4ZxOsRC7FNc9YPvY3WHE3hOWqLm6OIhu3Dc2VOERRA9BTCc== ID Date Data Source [id number] 02/16/2020 08:15:00 AM EST [facility] Name Value Range Interpretation Code Description Data Anahi rce(s) Supporting Document(s) SARS coronavirus 2 RNA [Presence] in Res piratory specimen by TAISHA with probe detection [facility] This lab was ordered by [facility] a nd reported by [facility]. ID Date Data Source [id number] 02/09/2020 02:50:00 PM EST [facility] Name Value Range Interpretation Code Description Data Anahi rce(s) Supporting Document(s) SARS coronavirus 2 RNA [facility] This lab was ordered by [facility] and reported by [facility]. ID Date Data Source [id number] 02/09/2020 02:50:00 PM EST [facility] Name Value Range Interpretation Code Description Data Anahi rce(s) Supporting Document(s) ID Date Data Source [id number] 01/15/2020 08:46:00 AM EST [facility] Name Value Range Interpretation Code Description Data Anahi rce(s) Supporting Document(s) Progress Note [facility] LLKIVf2hRwHDBiAc35/PSMdcJVRgj6GrQIdwEPe3LPogOIWwE4TnRYF4fV7pJEU5VLrJPzBvBfXdXYV3 m [file] q0XEi7GLmbEDWAXh5Y ID Date Data Source [id number] 12/02/2019 04:44:07 PM EDT [facility] Name Value Range Interpretation Code Description Data Anahi rce(s) Supporting Document(s) Discharge Summary [facility] YVHPZp5oOyRBJvJf83/HWHmmPIPzd0CzPUukJYw1VQkpUJNhT6FyVMD8zO7lSSV1CVrXFnJtOqOfQQI9 lbm [file] hebrew teacher+IZFzqGPjAOTzPycQpzNs1lS7jkNHvpT54RA3jR0BvqIDL2+sJ5qi4EqJF+03qa5x1nBiJ6xAGOuH [file] AgICAgICAgICAgICAgICAgICAgICAgICAgICAgICAgICAgICAgICAgICAgICAgICAgICAgICAgICAgIC AgICAgICAgICANCiAgICAgICAgICAgICAgICAgICAg ICAgICAgICAgICAgICAgICAgICAgICAgICAgICAgICAgICAgICAgICAgICAgICAgICAgICAgICAgICAg ICAgICAgICAgICAgICAgICAgICANCiAgICAgICAgICAgICAgICAgICAgICAgICAgICAgICAgICAgICAg ICAgICAgICAgICAgICAgICAgICAgICAgICAgICAgIC AgICAgICAgICAgICAgICAgICAgICAgICAgICAgICANCiAgICAgICAgICAgICAgICAgICAgICAgICAgIC AgICAgICAgICAgICAgICAgICAgICAgICAgICAgICAgICAgICAgICAgICAgICAgICAgICAgICAgICAgIC AgICAgICAgICAgICANCiAgICAgICAgICAgICAgICAg ICAgICAgICAgICAgICAgICAgICAgICAgICAgICAgICAgICAgICAgICAgICAgICAgICAgICAgICAgICAg ICAgICAgICAgICAgICAgICAgICAgICANCiAgICAgICAgICAgICAgICAgICAgICAgICAgICAgICAgICAg ICAgICAgICAgICAgICAgICAgICAgICAgICAgICAgIC AgICAgICAgICAgICAgICAgICAgICAgICAgICAgICAgICANCiAgICAgICAgICAgICAgICAgICAgICAgIC AgICAgICAgICAgICAgICAgICAgICAgICAgICAgICAgICAgICAgICAgICAgICAgICAgICAgICAgICAgIC AgICAgICAgICAgICAgICANCiAgICAgICAgICAgICAg ICAgICAgICAgICAgICAgICAgICAgICAgICAgICAgICAgICAgICAgICAgICAgICAgICAgICAgICAgICAg ICAgICAgICAgICAgICAgICAgICAgICAgICANCiAgICAgICAgICAgICAgICAgICAgICAgICAgICAgICAg ICAgICAgICAgICAgICAgICAgICAgICAgICAgICAgIC AgICAgICAgICAgICAgICAgICAgICAgICAgICAgICAgICAgICANCiAgICAgICAgICAgICAgICAgICAgIC AgICAgICAgICAgICAgICAgICAgICAgICAgICAgICAgICAgICAgICAgICAgICAgICAgICAgICAgICAgIC AgICAgICAgICAgICAgICAgICANCjw/cCWwF9phyPCr jhM8O2ehNb5CQz2FBR2pv1IvNWTgRCqsptWbLtwUGnYpKKTxNzaLNpn2YJutKY2MoUVdL5VuZ5VsGVti BJ9UFJOkOPLyfDAoMPJhYDYiTfQ6NVXvESsxZZ5UaWRxTGnuOCGtKDUbRyHvDTUoGHErLCLxWULiGFIJ RBFvKEGbKzAnDIMxVSPrXFlxHVTRZZD6DJFxPaXiOB ByPJZvQdTqNBEYSG6YCxKqT6LlcL39ULByWCx+Ud4CCG1rd8QoHFs5XLGqWY0pxn3FAFyXBzOfW9Ooil T9AZJ4ZJZwAy6ERGNzPKFtsPQ2LZTxUIDOVvIfE9CypC40DDEQLn7+LLbivbMzEvyOXmJ3XBTxj5JmBF a7GK9KLSOmKKi0tTIdXVxzL3baoaiiAEJ5hK5vswdr NnexXHZytEnyGXlfTR5dUC6SFXK4JDNjUhO0IoPoVsTyEOb3TpXlKL4bAYbvAR8WJVE5IVwlABRtBAZx Q2rEIlOnCVThNmAfaEbwKQ2DIuDqL7MbtcCkxMK4TTRyNKYDPn2+WTpjrhOxMmoMSdO5NKUvs2YbMAp8 WD7OZUCzYDqxNE3YFYUhlA7tPBpzRL1JWwT4CeFsLO CHCxDnE43thQLdIEm7W1QfBeRaBUAlLwyjYDCbFAnxMcUsADQiPkUjXAalLA1+ID4+XGdhGE2IDCxsrt IdMFMnJp6MLGLmSMXrYR3pZOTtAZOcU9T9vBxmIEJGYrLeQ2lakonuBM1lLTYkQ953hNagreSzBTC5US WlNo1PPRJsNNI8PJPsbKLmKULbXRTWMJphOK4VlSOp TST0kC6nOCifBKFqUXLjD7xQEmYykAayQG30gTqekfLphEYwXUl+Mi9XGW4oc6CqQVb6obQhSCctVIA5 YXxkDMLyDILxZWFvPSA1PVH8FBQOWzWpCEDjXHOkGZyfPSAtWIGykx3CBHJeUUB1BgY5NDKhIQTlSKGy JLbaBIQpYQM4ZwN4EAYlKVKqHH1QElCrKAJlZVSeXH gvHUYmZDQvyg9HOCPuMNIeILlpCSPhJHTlWQGbHBhkZGJzLGB3CJH9RYRdXMMnRK6FMeUvIKPkXDjxXm IaCCDyRKFulh2PPNHxYKKpRLV7HJIlHIUyXHYyAShnGYPbDRIoVtYyULAaOVMbAN5DPjTsMHBtKOS2JF VaRPOuODMvly3RBNTrCOUvTDc2OuLfPWDiINJkVClu GCLvIFS9ZQPvYUQiWNAdXB4IFwSrPAYpRFi6NFSuMZShVEEskk7KVLBoCVXxOAG7FwZhZKKpAFTiKBog PYRuUWOtBCFsLVUfSZTxIB5KSrZkOPFcXiMuLFCoFUTmKYVdss0CCJVsIRUgOed4MVHjMVNaWPNnQZbd GGSoIKN9DGz1GSYcVZIqHL3KZqHrVMFcBgW8MAtjYC YmEMVyvs7EWOWqJGAqQWs7XPXnCYQtLXToPJjjUKFzCJE3LIA3KYYwKTWyQJ0OPgDjHLNcVcGwOyKkJL YpPONreu3ELUXrVKCoLdqcWGZpPAQzGGXqVPsxFIUbZAB8XPMsRFLiYEIqST5ZGgClAPVsTyzjDYXdVE ZlVYDtbv2ZICNtUMPvPLG1ECVuGZUhFKBkLFgwPLWz NIY1CTawQISmSCQuAW2DVgRiEDZzLaa4YmNaIFEjKSOqoc6UHDDtDCHxPNBpNpWsENAoIUIxNXjsMWYt ISR4IOEzPHAqOUHrEN2WPgVaSCIkGKJwRHBbTKGpLRDyeb1ETKLeWBF7UPWdAtAzRFEsTEPyGEwaWJOv YUAoDwHkZIUzPFDeRU0RFxTpMWSxUAJ4NeVlQKYrXJ Lobf8SVMKtSWI3YoWtQrNzARWpSNOuGJshJRHjZOSzIZPnKORyXCVdRT6VGfBgVDJcMHTyWWebYVZyLY Ddkl9BPAGaUOY3JpOtHoEgEBYdHEScFAbcPVMnXJB8UgqjAPHzKXHkRM4TNhJdAWMaSIF8NiBhZLQxLQ Fgly1SDNUrUOB1EBz4SoGsNTQvTNOeOGsbSTZgMZK4 LuZvOOLxQWAbDB7YHaTrFXScMFj2BhDoMEBqLXEanz6NAVXfTOY1KSH3TWTmKAEeSDQkHUmgBXNhIJPv Ppy4IAAvSEZfAU8MLyCzZLZvKiI9KsubRDLiFQNmce1NMCVlLMP0AZq4RKFoVZSmGTUuXFcaBKJnNHIf CTtiJXWaVGNqQR7TDgZmOZSzGtVnCzthNMTkWYPssb 6JXPApTFG8HgP9HKKaSQGcMINgAKtjMIOcINFcFwV6HEMdWWYgCN0XEbQjKZHbJlX9AEKzVUMcPYWozq 1IINHzLRV1AjodKyYkSMQvYBCfIItlQOOaCHM6ZIM8XADqEJRdZP2STeAdCVRhNwC9ZObzUDLgYMExcm 4CRKRdQBU9UFO4COJgONSgHYLtJOu1ixOgcKPbINa8 WG3MS7TsptFrLTqRHb5Ao826RCC7AHOpDp7EW4bsAe9iWMEqEKNIMq0SEYb2LMorBsblNFR2RaYtRNB0 DQHoGOsqZAL1ZnK4AnGxVAQ+IScoV8GtDzFoUSosFIXkVXmjVrW3F1JyEKpzKLQbSbM6RR7fZBULHe8+ IZcryBSusFrmDZKUBhJ1CEgzNZsmUREKCw8P ID Date Data Source [id number] 12/01/2019 01:12:54 PM EDT [facility] Name Value Range Interpretation Code Description Data Anahi rce(s) Supporting Document(s) Albumin [Mass/volume] in Serum or Plasma by Bromocresol green (BCG) dye binding method 4.0 g/[facility].5[facility]2 [facility] Bil[facility].total [Mass/volume] in Serum or Plasma 0.3 mg/dL <1.2 [facility] Calcium [Mass/volume] in Serum or Plasma 9.2 mg/dL 8.6-10.0 [facility] Chloride [Moles/volume] in Serum or Plasma 103 mmol/L 98-107 [facility] Creatinine [Mass/volume] in Serum or Plasma 0.82 mg/dL 0.70-1.20 [facility] Glucose [Mass/volume] in Serum or Plasma 97 mg/dL 70-140 [facility] Alkaline phosphatase [Enzymatic activity/volume] in Serum or Plasma 81 U/L 40-129 [facility] Potassium [Moles/volume] in Serum or Plasma 4.1 mmol/L 3.4-5.1 [facility] Protein [Mass/volume] in Serum or Plasma 6.9 g/dL 6.4-8.3 [facility] Sodium [Moles/volume] in Serum or Plasma 139 mmol/L 136-145 [facility] Aspartate aminotransferase [Enzymatic activity/volume] in Serum or Plasma 37 U/L <40 [facility] Urea nitrogen [Mass/volume] in Serum or Plasma 9 mg/dL 6-20 [facility] Osmolality of Serum or Plasma by calculation 287 mosm/kg 275-300 [facility] Creatinine/Urea nitrogen [Mass Ratio] in Serum or Plasma 11 [facility] Bicarbonate [Moles/volume] in Serum 25 mmol/L 22-29 [facility] Alanine aminotransferase [Enzymatic activity/volume] in Seru m or Plasma 55 U/L <[address] [facility] Anion gap 3 in Serum or Plasma 11 mmol/L 8-15 [facility] Glomerular filtration rate/1.73 sq M pre dicted among non-blacks [Volume Rate/Area] in Serum or Plasma by Creatinine-based formula (MDRD) >[address] [facility] Glomerular filtration rate/1.73 sq M pre dicted among blacks [Volume Rate/Area] in Serum or Plasma by Creatinine-based formula (MDRD) >60 [facility] ID Date Data Source [id number] 12/01/2019 03:38:28 PM EDT [facility] Name Value Range Interpretation Code Description Data Anahi rce(s) Supporting Document(s) Calcidiol [Mass/volume] in Serum or Plasma 29 ng/mL >[address] [facility] ID Date Data Source [id number] 11/27/2019 02:51:57 PM EDT [facility] Name Value Range Interpretation Code Description Data Anahi rce(s) Supporting Document(s) History and Physical [facility] ZDJZIt3xYbEEDiQu13/OPNwaRRCyz6TaJTqrOYj4QGaiMNAvF7WhLST4vI1fXDS3GXaJXhAhGwDnYIL3 lbm [file] +HAnjiCpLwlqughFas4EpgfWk4OqnaXPwBh/OM/+CLIENT ENGAGEMENT SPECIALIST [file] ICAgICAgICAgICAgICAgICAgICAgICAgICAgICAgIC AgICAgICAgICAgICAgICAgICAgICAgICAgICAgICAgICAgICAgICAgICAgICAgICAgICAgICAgICAgIC PuESAaNM5MYBYrKLLkDIJsITGuLOLyDIWeWUFsJKMzUYDjXJMeZSVyJRUuGYNvQJUeWRSqBFTkDTFbQS AgICAgICAgICAgICAgICAgICAgICAgICAgICAgICAg BKVrXDJkAFDyRGRxPNMuUP2MEDZcESWeQZCrJQChXZWhVUSdNRFmHJGqQUPeAQRmPDLrWLXhTRRhUPZf PBKoLAFzBCCgBTGeHEViASCjZUNbGKYfDHKwQWXqNZJrORWgUGPbBDZrMTOsNIOcANHgGNNjQIRuXO3R ICAgICAgICAgICAgICAgICAgICAgICAgICAgICAgIC AgICAgICAgICAgICAgICAgICAgICAgICAgICAgICAgICAgICAgICAgICAgICAgICAgICAgICAgICAgIC ZiKGMvASLdRN9KRJJpLGSuXERpDVKlWWXkOMBiDHNdJGOyNEJdHRXnWTMdEADwCPZbPICxZTKkOOZmGP AgICAgICAgICAgICAgICAgICAgICAgICAgICAgICAg YDHaZKOzHVRpZRNfCHPsKRIqYW8XZKQiQUNaXTKaUWRwTYNhSMCvLGDuTKYeRPYyFYVwMTGlTSVvJKPq ICAgICAgICAgICAgICAgICAgICAgICAgICAgICAgICAgICAgICAgICAgICAgICAgICAgICAgICAgICAg HO1FYGQiTVNlTOAaWAEdLTSqZNNjIHFkSXYsQZBgKH AgICAgICAgICAgICAgICAgICAgICAgICAgICAgICAgICAgICAgICAgICAgICAgICAgICAgICAgICAgIC PoKNVkMMFoEFVwFF7ZWNHkUVLqDBFdBXFuSIErCLUaWYYsRDDyIZAyASAtOQUlEFFtTQBoXJKuTCGwDD AgICAgICAgICAgICAgICAgICAgICAgICAgICAgICAg KPEdQMVkDSNxNMGhAGSdIMZjPLTgMT5CEJPdZRNlAVViHBJvRRBvLKLkGFZvUSWoXGUqEUFtGEDzDVAc ICAgICAgICAgICAgICAgICAgICAgICAgICAgICAgICAgICAgICAgICAgICAgICAgICAgICAgICAgICAg XZCmVX2MFN17dRUig9U8YUXlGR5xsaa/Ws3VIXgmac OveFAvOY7EDaOxBF2fzx2VIuWnII8ndn5YXLnQSzQkG2S2pYZoHEAlEHOHYtHgD92qVXwnAe74IBluQE VyUwUkBNi7Mr7LYkLkS1dlIVJkLrG5YEJeFzJ7RGMvYaQ5ASVsTqYyPQIyMQZvIOHwYQDMHLA4OVCjPt XyKgPoYMIfKThrPPJEDBMuWLZuVmEzGVemGC3Od1Tv kJX4HZf+Jx7RJM8uh2KoPFf3CcRiDF1ssz7OKJnYItXdK5QltqD0PZSzVVWmNs3NZEGfPJXawIX6OcPp ULXSEfWkD8JjpL54AOWRQx2+RSmcflRvMygWQzFcNJXix0RaHQn1AS2MGNEoHJv2hKGaTMUYRDB1XU61 i2fkhPONeRHiUNLUTHKhyZBeDD31ZtIuHmOkZLX2Gg JxEN2kMJroZZ9NVSC4AZonHMEgRYTcI2cNKpVqGCYoKiTyiLnpEA3GRuZhT8TcmrRfoET8YmRbIVOSXv 4+YErfriDrJvbVNmC4BNVif4WkDJl3YO8TOKNtSZdyYL5VWUNiwB6jEVuoTX5NGeE6AMFgYICNPnNbM6 9lzNAjEHe4K8JpSgDuHJQtExsbERSsLLkwWcHzKQQb WyBdDQogID4+ID4+RZqaVI7KLIzgaiMwOEWcNs3UXSIsYJPuCI4rBFSgVGOxW9I1tRhdBVRRDxKaA8tf gdwpQX6fABAkS787wNsquaEtSANnQXTkMo2TRTGyJCL4DNMdqLYiRERfHYJZAIzdLQ4LhULcOET9dW3n AEbxMSZwVUUpG4bIWzSdzAtdOS12wGsckzEacNGdME o+Qi0VSP3vq0MdGKx6tnHbMKbtHJZ8BUbmZSMfVJNsGFQgZVA0VAX6URNMIjOiSXAoHBTqJTysHMBaUF Mqcp2TNKLyLFI9Tfq7KcKvKIVkJSJaTFtqGROuDMH3KIX8SCHqUSVgDK6ADzZjVTWwSXDyGLabVIYmTU Gkuv9RESHiVQAnXQP5UGYjAPBcRQRmYPsyUTMmQJC8 LPftHONjGIDrMF0ERgReHNAlYFftZpPwTYIbQVWuql4MKPGlYOWnCtBwHELgQXEeOZOgFBcxMCGkHSLt GnJ4UNVtIEWvKZ7HLlGdYUYbEMY5MWnvXAAjHXPsgx3MNLAqMXDnAjNnXMQgGFLqYIHgENorABXsDKVh JFO9TPHkDOZmKH5FMrIvGDCyLKz6MOXkUTWoNKJibz 9JWQGvNCOvXdu2DGSoWIYdGZGzEJhbZTPkIVKyOSV1XEWfMUYhLU2QJnRpLVVpEuA8VTOfYSPzLYGajb 1NVHLiGBWoVIBgEdYnWHMkSLPpQKuxEZJnGRT6AaIiLHLjIMLoUS3TOwGsNMIhZysbTZFiWOLwXJRrdk 6AGVEkWOTrODKlQmTfQSJeQLRsGLovCDUkPSRlWdI2 YMMuDJMdUC9RPmOcNVUoQpZ6UcJwUIJxBSMqqn8SAWQhOZUoZhS9UBPiBAZlEWKaGMngZAOnHZSvIFu4 AYVpNCPlTC0CNuQjONUdTjY5RgHzCNWkUGNyvo6JZUMdQELfQCxuUNVsRQDyJVYfMRnqBGYlEKF0STZi HIUnVZVgTW6NNpNxKCYaBiRgWVsmVGBoWSAdmy7SUM AhYAR7FvZ6VAZvATSaFJAgKDcjAVFuYYR6MPHuMGFbXFOhUM2DLfLhAIVsLMnbFtJgHYMjYVIkwr0JKN GbFNV9EbT4VCOkBNVsNZVbBDilJXJxVLP8WNI9MHUwULMoOH6LVqPvDSDkLBanQBRcAZYdYFZkrf3GOH GnARA6CPYvAFZlHFAoESZpWZazNJZdDRA2OsX5CNBb SBClKR3PMwUdFDIyFQk5KNpjSELmVGFsqb3JYMEcIXU4SMu5OjBgEESpSLMjJAmsGSPcQKFcUDM6LDLu IZZqFY7KBsIdCRYvXTO6ZLNbJWUhMJGkjx2BXNOnSZS8RGRyZrArTBNyXXPaOZbsADDqUIP6FDAeHTDv UXMwPG1RSlCiHUTgMCV8ScLeAQNvJQZqpn7CNERpHT Q8YMglBnWgUNJrIPXqYNelMALcSET9VVV0PZOzDILyOC7IOuSjOYXhTDTyYgnnONYsXIOvcf1KULZoWC C1VvGkNzUiUNHuHSBpBMuoJKMpOCX0FdA1USWqNMEyDQ1CHeHfAKMdIMp6LYGcUSSvGRRjpf4SHWArRN M0FwidSAApEYQaPIAuDJpxXIQdNMP4EjT8VSKoYAGl NT0IAtEiXYUsREb1LGhqHHOfHMOtql7JIRTvXPU8VFa3ZSByZNMkWIUgYEwyLQMdGRK6JGR9YRJgNUVm DC0DRcDyWLoaYFACWen0QVawM8q7JSA0FC5YB1Obg7KcWXCrRQCRPPjuPS3kipVuJDWfEc6FA3nEVvsw ZoP1AgM5CLMdKYngTFWxAhchEFUyFUMrVUZ5JpDcWg 2qIASjIDK1BTa0OoUhWWOxCRG0SILoI6IzRIRsEnyhXAH6NiBiDK8CYd5LBxM4DMV1sQFtDf4HMqNhPT nWZsHjXL8MVLu= ID Date Data Source [id number] 11/26/2019 04:32:50 PM EDT [facility] Name Value Range Interpretation Code Description Data Anahi e(s) Supporting Document(s) History and Physical [facility] GOFRPu2dJsGFZqEc59/VTQuvEJBht0HeNTavOKh2BLswGWSsB2TyJCC4nP7zLXA3YViLBoUaUgVhDCP3 lbm TfBypVRnEwCJAeNkrIAwGhIGryCorlmHQwXM7BgLI5XQFeO49fDAPiJKIxY0EkWLQsZlE+Ha0PXCLgcB BwRG1OKyeT4Ioug4q07QtU/PiCC0rZlTpfWJqKtvMptjoZrcCK3XVIrt+owiPmUchk6Xt010ZEbj56+R bZlPtsPyQHknfHe/NwFGbv4v/rfGS5dfDb/P/iVz8Q bHTLvv+OLadJsZi2/BVNAguEox2/DUJ6Udp/IwmCgADlMsnfanRNYdvCbYnFduB8cXDhr/0jG/zFuA6y wVaEYrEzAogeFNwtGNPbqPSxF2VbJjFcuSP4Nmh0FA3udXvIiqly0DUteiZMsXZTmQivxAEx9BkP9I2C Tl5zHZRLLKiMqEQrVRyoDJ00qJKOItqn3obxxmx2fy J6w+dIBQWJoWvNsMdHgEAf3t7Cg9fa0jvNaxFohMjL9GUQorpgwbjcNDB2P7icGf0iCDn98Yj6XKVKiL swRcCroIWvanIY5nXiR8f+XRY9wGC5MxognDdvy4M0m0kT1EJKKLo9UnwGtxw30Bl2V4diqJlAy5xiu3 qZfdB7gRyiXW3nx1Ko17pfuX6EjSIQR/fHvv4IbbDy 8+PSUs0q83kalO0q2qcHE2lfPutSMaAFIEn0eN0alZE5UNYr+TA5ua6/2din2TdLWvtdqWRwZWD3tK2V i7p6D7ju5IMwn2UwYeu++G8cvunc8nPaDnnrWANhgf2Sw4g9dLmVGDQdOddr0Xttf9bi6si25/g23DJ/ ysuAQOJfgu0nBYBLurNECURttQPZKtPuLNVf3OpRJs [file] AgICAgICAgICAgICAgICAgICAgICAgICAgICAgICAg ICAgICAgICAgICAgICAgICAgICAgICAgICAgICANCiAgICAgICAgICAgICAgICAgICAgICAgICAgICAg ICAgICAgICAgICAgICAgICAgICAgICAgICAgICAgICAgICAgICAgICAgICAgICAgICAgICAgICAgICAg ICAgICAgICAgICANCiAgICAgICAgICAgICAgICAgIC AgICAgICAgICAgICAgICAgICAgICAgICAgICAgICAgICAgICAgICAgICAgICAgICAgICAgICAgICAgIC AgICAgICAgICAgICAgICAgICAgICANCiAgICAgICAgICAgICAgICAgICAgICAgICAgICAgICAgICAgIC AgICAgICAgICAgICAgICAgICAgICAgICAgICAgICAg ICAgICAgICAgICAgICAgICAgICAgICAgICAgICAgICANCiAgICAgICAgICAgICAgICAgICAgICAgICAg ICAgICAgICAgICAgICAgICAgICAgICAgICAgICAgICAgICAgICAgICAgICAgICAgICAgICAgICAgICAg ICAgICAgICAgICAgICANCiAgICAgICAgICAgICAgIC AgICAgICAgICAgICAgICAgICAgICAgICAgICAgICAgICAgICAgICAgICAgICAgICAgICAgICAgICAgIC AgICAgICAgICAgICAgICAgICAgICAgICANCiAgICAgICAgICAgICAgICAgICAgICAgICAgICAgICAgIC AgICAgICAgICAgICAgICAgICAgICAgICAgICAgICAg ICAgICAgICAgICAgICAgICAgICAgICAgICAgICAgICAgICANCiAgICAgICAgICAgICAgICAgICAgICAg ICAgICAgICAgICAgICAgICAgICAgICAgICAgICAgICAgICAgICAgICAgICAgICAgICAgICAgICAgICAg ICAgICAgICAgICAgICAgICANCiAgICAgICAgICAgIC AgICAgICAgICAgICAgICAgICAgICAgICAgICAgICAgICAgICAgICAgICAgICAgICAgICAgICAgICAgIC AgICAgICAgICAgICAgICAgICAgICAgICAgICANCiAgICAgICAgICAgICAgICAgICAgICAgICAgICAgIC AgICAgICAgICAgICAgICAgICAgICAgICAgICAgICAg ICAgICAgICAgICAgICAgICAgICAgICAgICAgICAgICAgICAgICANCjw/lGCyR1ubgJPmtvJ8R5lqFj5W Wp4ZKC7gs6HfUBCoTFxzuaGqVqcDLcArFZLjSevGBcx7RAeaPI9NqCMdL0NyG5DyKQccHG9HCMVdPYBq eOWhMKCgWWKpIiF0KGMqQMmtVJ0EpDOpQDpzKBSqVS HrObRtUJHjHUAqWEIpEDXoKKUEBB4KMhJpK8FerM76KVUUPh2+TOywpwCeTegFBjReWSZhd4GvBLa1FN 8EHCIhSjvkl5RzFpNiUHHPXTanBO7QDZA7IHCaEQVyHs4LANIrP789nqUnLE1LDf0RBySvBB8nuz2OUd KeGMVdWjnFCkn0BMhkUB8PgQLkVSbCToQjWssbSDJe oEBTNHPzDRAaoLwyIROgBBAhIQWsTZ2aMHQtRPBvKpR9EOOPJX7HSAZaFTSxeJPtMOXyQYIOYL9AZAnj DAX2EABwqnOviZClSGseWN8KXMQisuBgSvTtJMXUSYo+Tu6PVJ1gi9WqYWawNaMdZP0ymx9CAMsNKcBi W0L7sNQhS7X2JRmaEp1DIZRuPCNmUtqmIJQYVJdaVO 6NFR5ztgE7YL7GiZVlUBYeZPOwtWBhEQp7A94xbONyYCstLO8HOZY+Daniel+Jw1VAFKwKTChENJsEuWyGA WEJxDsW9VqW6MFl3SoA2YqHU70kYpiliUyYBzwGE9NQE9rFIYhGVEVIY0UmDSzrF4exbUnBCJdZUAJPr SoN80sjYTcEXIwOPYdHGBlKg2RKYRwC8ZwyxNsvGrg hjLkOKQpOEBKQE3MQWizbmWmeFIraMetRH00oTavUZ0GFp2ORcIeJN8fgr5GpIHsDr7NHLKoAL5NNGAm EUIvSDXvDPN5UVFzLhWkTSojEEAyGQGjYVI8WTDzNMHyJG5VTjHtCZXaPohwJwWyYCTgJVZrju7OBSXt NXXvJVn4SsEeHZVrXXBbCSbkWUWvXMCaAVI0YVBdTE IeZU1VPtPiEWZbBTS0HUpsUTNoPZFvpr9OZHWbRBWtFdogYrSxKHAhKXWbIKixNLCjBMU7DcO5USBePT GkKK9WLvZlDNFsKGK8FKDxPLUyGSEusn9PGMIrJTGiUIdjBVQgNNMtGPZfOXetRMCsTMH4HRO3SEHtGU NaOH0XPjTcCWVhUDAvPNRuGXIhNFCswb0FNYYdHRRt IZN1XTXnRCImMNLjVCfjPGSfGUOnKbW6QTJgZYAxOG9CSvQrFOGkONZ4GNQnZIBrSWZcfz2XDADcGLDz SYQ7GORqZYQfFLZuGDgnEIAiGQDoKaV4UKFqKICbRD8INzDtCMGsNVB0DKewBBCxGUFnsm9PBFKhXMKk IaP8HhFkOHGzGFYcZFhrEYAjJSG5YHI4UYIfAIQhIM 8FTbLnTXIgQKXaDBZrVQTzYQIvzv2KIKJeOBIeGBY9CaKjAJHsCZTaVDsbASKsJUA9EgcrKFRnVAAvWS 9WTlWxXHPmVgQvDLPiCKCnWSDyxi3HCFBnPLOyTfX1INEzKONiMTNgDUqpJDYlPVK2OYK6KRGcVZOhUZ 0BXkSvQVOtUdS7FVOwCUIoXTMarw1OKUIsGTIuKbSw JyAgIDVeTYXkHPbaMMHcSTR9APLaRDZrRYMiRB1FGbMdUFXoUgguQTFmHCLtZEKlem0IFEZnIJOgPEVs GpAsUEDpBDFpHMjyEXZvTQW3VYyiGXWvKVKjBI6BYvYdGEPmTik2PuFtQHLcZAJldv7ANJWgXAXaAWRu SWZmDPOqUEFtMGj7tjRvnJEwTMu4OT1GM0LgflCqWp QJMm2Zv911NMJbJXFfZo5SZ1owXx3jBOMgOSXKEi0IWAs3QZogDkCoHuJ2ZXL7OSVnIRQiQLM2SIQcJF W6LOP6RQE+SUnwMvX3P6F5JkEpMJA5BoQdFCOhOfA2RrVcKLVsHAQtUm1iTFJFKw6+DQpzdGFydHhyZW HPLkFnIuC0HYsaHTCFLt7P Procedure Social History Code Duration Value Status Description Data Source(s ) Smoking 09/20/2020 12:00:00 AM EDT Current Smoker completed Curre nt Smoker eCW1 ([facility]) Smoking 09/20/2020 12:00:00 AM EDT Current Smoker completed Curre nt Smoker eCW1 ([facility]) Smoking 09/20/2020 12:00:00 AM EDT Current Smoker completed Curre nt Smoker eCW1 ([facility]) Smoking 09/01/2020 12:00:00 AM EDT Unknown if ever smoked comp leted Unknown if ever smoked [facility] ([facility]) Smoking 08/09/2020 12:00:00 AM EDT Unknown if ever smoked comp leted Unknown if ever smoked [facility] ([facility]) Smoking 08/03/2020 12:00:00 AM EDT Unknown if ever smoked comp leted Unknown if ever smoked [facility] ([facility]) Smoking 07/28/2020 12:00:00 AM EDT Unknown if ever smoked comp leted Unknown if ever smoked [facility] ([facility]) Smoking 07/01/2020 12:00:00 AM EDT Unknown if ever smoked comp leted Unknown if ever smoked [facility] ([facility]) Smoking 06/30/2020 12:00:00 AM EDT Unknown if ever smoked comp leted Unknown if ever smoked [facility] ([facility]) Smoking 06/27/2020 12:00:00 AM EDT Current Smoker completed Curre nt Smoker eCW1 ([facility]) Smoking 06/16/2020 12:00:00 AM EDT Unknown if ever smoked comp leted Unknown if ever smoked [facility] ([facility]) Smoking 06/10/2020 12:00:00 AM EDT Unknown if ever smoked comp leted Unknown if ever smoked [facility] ([facility]) Smoking 06/03/2020 12:00:00 AM EDT Unknown if ever smoked comp leted Unknown if ever smoked [facility] ([facility]) Smoking 05/13/2020 12:00:00 AM EDT Current Smoker completed Curre nt Smoker eCW1 ([facility]) Smoking 05/13/2020 12:00:00 AM EDT Current Smoker completed Curre nt Smoker eCW1 ([facility]) Smoking 05/09/2020 12:00:00 AM EDT Unknown if ever smoked comp leted Unknown if ever smoked [facility] ([facility]) Smoking 04/21/2020 12:00:00 AM EST Current Smoker completed Curre nt Smoker eCW1 ([facility]) Smoking 04/21/2020 12:00:00 AM EST Current Smoker completed Curre nt Smoker eCW1 ([facility]) Smoking 04/12/2020 12:00:00 PM EST Smokes tobacco daily (findi ng) completed Current Every Day Smoker [employer] ([facility]) Smoking 03/31/2020 12:00:00 AM EST Unknown if ever smoked comp leted Unknown if ever smoked [facility] ([facility]) Smoking 03/30/2020 12:00:00 AM EST Unknown if ever smoked comp leted Unknown if ever smoked [facility] ([facility]) Smoking 03/14/2020 12:00:00 AM EST Unknown if ever smoked comp leted Unknown if ever smoked [facility] ([facility]) Smoking 03/09/2020 12:00:00 AM EST Unknown if ever smoked comp leted Unknown if ever smoked [facility] ([facility]) Smoking 02/22/2020 12:00:00 AM EST Unknown if ever smoked comp leted Unknown if ever smoked [facility] ([facility] Smoking 02/16/2020 12:00:00 AM EST Unknown if ever smoked comp leted Unknown if ever smoked [facility] ([facility] Smoking 02/08/2020 12:00:00 AM EST Unknown if ever smoked comp leted Unknown if ever smoked [facility] ([facility] Smoking 02/05/2020 12:00:00 AM EST Unknown if ever smoked comp leted Unknown if ever smoked [facility] ([facility] Smoking 02/01/2020 12:00:00 AM EST Unknown if ever smoked comp leted Unknown if ever smoked [facility] ([facility] Smoking 01/25/2020 12:00:00 AM EST Unknown if ever smoked comp leted Unknown if ever smoked [facility] ([facility]) Smoking 11/26/2019 12:00:00 AM EDT Current every day smoker co mpleted Current every day smoker [facility] Alcohol intake 11/26/2019 12:00:00 AM EDT Ex-drinker (finding) comp leted Ex- drinker (finding) [facility] Vital Signs ID Date Data Source UNK Name Value Range Interpretation Code Description Data Source(s) Body height 0.00 in Normal (applies to non-numeric resu lts) 0.00 in [facility] ([facility]) Body weight Measured 0.00 lbs Normal (applies to n on-numeric results) 0.00 lbs [facility] ([facility]) Body mass index (BMI) [Ratio] 0.00 kg/m2 No rmal (applies to non-numeric results) 0.00 kg/m2 [facility] Systolic blood pressure 0 mm[Hg] Normal (applies t o non-numeric results) 0 mm[Hg] [facility] ([facility]) Diastolic blood pressure 0 mm[Hg] Normal (applies to non-numeric results) 0 mm[Hg] [facility] ([facility]) Body height [in_i] eCW1 ([facility]) Body mass index (BMI) [Ratio] 54.35 kg/m2 54.35 kg/m2 W1 ([facility]) Heart rate 97 /min 97 /min W1 ([facility]) Respiratory rate 18 /min 18 /min W1 ([facility]) Body temperature 99.2 [degF] 99.2 [degF] W1 ( [facility]) Systolic blood pressure 124 mm[Hg] 124 mm[Hg] e CW1 ([facility]) Diastolic blood pressure 78 mm[Hg] 78 mm[Hg] eCW1 ([facility]) Body weight 400.8 [lb_av] 400.8 [lb_av] W1 ([facility]) Body height 0.00 in Normal (applies to non-numeric resu lts) 0.00 in [facility] ([facility]) Body weight Measured 0.00 lbs Normal (applies to n on-numeric results) 0.00 lbs [facility] ([facility]) Body mass index (BMI) [Ratio] 0.00 kg/m2 No rmal (applies to non-numeric results) 0.00 kg/m2 [facility] ([facility]) Systolic blood pressure 0 mm[Hg] Normal (applies t o non-numeric results) 0 mm[Hg] [facility] ([facility]) Diastolic blood pressure 0 mm[Hg] Normal (applies to non-numeric results) 0 mm[Hg] [facility] ([facility]) Body height 0.00 in Normal (applies to non-numeric resu lts) 0.00 in [facility] ([facility]) Body weight Measured 0.00 lbs Normal (applies to n on-numeric results) 0.00 lbs [facility] ([facility]) Body mass index (BMI) [Ratio] 0.00 kg/m2 No rmal (applies to non-numeric results) 0.00 kg/m2 [facility] ([facility]) Systolic blood pressure 0 mm[Hg] Normal (applies t o non-numeric results) 0 mm[Hg] [facility] ([facility]) Diastolic blood pressure 0 mm[Hg] Normal (applies to non-numeric results) 0 mm[Hg] [facility] ([facility]) Body weight 385 [lb_av] 385 [lb_av] eCW1 ([facility]) Body height [in_i] eCW1 ([facility]) Body mass index (BMI) [Ratio] 52.21 kg/m2 52.21 kg/m2 eCW1 ([facility]) Heart rate 98 /min 98 /min eCW1 ([facility]) Respiratory rate 18 /min 18 /min eCW1 ([facility]) Body temperature 97.2 [degF] 97.2 [degF] eCW1 ( [facility]) Systolic blood pressure 126 mm[Hg] 126 mm[Hg] e CW1 ([facility]) Diastolic blood pressure 78 mm[Hg] 78 mm[Hg] eCW1 ([facility]) Body weight 350.8 [lb_av] 350.8 [lb_av] eCW1 ([facility]) Body height [in_i] eCW1 ([facility]) Body mass index (BMI) [Ratio] 47.57 kg/m2 47.57 kg/m2 eCW1 ([facility]) Heart rate /min eCW1 ([facility]) Respiratory rate 17 /min 17 /min eCW1 ([facility]) Body temperature 97.6 [degF] 97.6 [degF] eCW1 ( [facility]) Systolic blood pressure 128 mm[Hg] 128 mm[Hg] e CW1 ([facility]) Diastolic blood pressure 80 mm[Hg] 80 mm[Hg] eCW1 ([facility]) Body temperature 97.5 [DEGF] 97.5 [DEGF] [...] [facility]) Body temperature 97.7 [degF] 97.7 [degF] [facility] ([facility], ) ID Date Data Source [id number] 04/01/2020 08:46:40 AM [facility] Value Range Interpretation Code Description Data Source(s) WEIGHT RECORDED 330 lb 330 lb [facility] Body height Measured [address] [facility] ID Date Data Source [id number] 02/23/2020 01:40:46 PM [facility] Value Range Interpretation Code Description Data Source(s) TRANSFER FROM [facility] ID Date Data Source [id number] 01/15/2020 08:46:00 AM [facility] Value Range Interpretation Code Description Data Source(s) TRANSFER FROM [facility] ID Date Data Source [id number] 12/02/2019 04:44:07 PM [facility] Name Value Range Interpretation Code Description Data Source(s) TRANSFER FROM [facility] Patient Treatment Plan of Care Planned Activity Planned Date Details Description Data Source (s) Nicotine 4 MG/ACTUAT Inhalant Solution 12/02/2019 12:00:00 AM [facility] olanzapine 5 MG Disintegrating Oral Tablet 12/02/2019 12:00:00 AM E [facility] benztropine mesylate 0.5 MG Oral Tablet 12/02/2019 12:00:00 AM [facility] Melatonin 5 MG Oral Tablet 12/02/2019 12:00:00 AM [facility] Cholecalciferol 1000 UNT Oral Tablet 12/02/2019 12:00:00 AM [facility] olanzapine 5 MG Disintegrating Oral Tablet 11/26/2019 02:45:37 PM E [facility] Acetaminophen 325 MG Oral Tablet 11/26/2019 02:45:21 AM [facility] Ondansetron 4 MG Disintegrating Oral Tablet 11/26/2019 02:45:21 AM [facility] Hydroxyzine Hydrochloride 50 MG Oral Tablet 11/26/2019 02:45:21 AM [facility] Aluminum Hydroxide 40 MG/ML / Magnesium Hydroxide 40 MG/ML / Simethicone 4 MG/ML Oral Suspension 11/26/2019 02:45:21 AM [facility] Magnesium Hydroxide 80 MG/ML Oral Suspension 11/26/2019 02:45:21 AM [facility]
[2020-12-21 16:10] VITALS: BP 131/82
== END 2020-12-21 16:12 | disposition home or self-care (01) ==
LOC: M ED 12:23
DX: H00.014 Hordeolum externum left upper eyelid (principal); F31.9 Bipolar disorder, unspecified

== ENCOUNTER 2022-05-09 13:05 | Emergency (ER) | payer MEDICAID, OTHER ==
[~2022-05-09 13:05] MED LIST changes: +BACT800T5 PO; -BENZ-52 PO; +BENZ1TAB5 PO; -D31000TA2 PO; +OMEP-173 PO; -OMEP-218 PO; +VITA100093 PO; +ZIPR60CA11
[2022-05-09 13:35] VITALS: BP 160/80
[2022-05-10] MEDS ORDERED: RISP-7 PO (06:06)
== END 2022-05-09 13:45 | disposition left against medical advice (07) ==
LOC: M ED 13:05 → EDBD 13:05 → M ED 13:45
DX: Z53.21 Procedure and treatment not carried out due to patient leaving prior to being seen by health care provider (principal)

== ENCOUNTER 2022-05-09 14:27 | Emergency (ER) | payer OTHER ==
[~2022-05-09] VITALS: Ht 193 cm; Wt 189.9 kg
[2022-05-09 14:28] VITALS: BP 154/91
[2022-05-10] MEDS ORDERED: RISP-7 PO (06:06)
== END 2022-05-09 16:15 | disposition left against medical advice (07) ==
LOC: M ED 14:27
DX: F19.10 Other psychoactive substance abuse, uncomplicated (principal); Z88.2 Allergy status to sulfonamides; Z79.899 Other long term (current) drug therapy; Z53.9 Procedure and treatment not carried out, unspecified reason

== ENCOUNTER 2022-05-10 06:00 | Emergency (ER) | payer OTHER, SELFPAY ==
[~2022-05-10] VITALS: Ht 190.5 cm; Wt 187.8 kg
[2022-05-10] MEDS ORDERED: RISP-7 PO (06:06)
[2022-05-10 08:52] LABS: BASO % 0.2 % (0.0-1.0); EOS # 0.1 10^3/uL (0.0-0.5); EOS % 1.1 % (0.0-3.0); HEMATOCRIT 40.6 % (42.0-52.0); HEMOGLOBIN 13.1 g/dl (13.5-17.5); LYMPH # 1.9 10^3/uL (1.5-5.0); MEAN CORPUSCULAR HEMOGLOBIN 28.2 pg (27.0-33.0); MEAN CORPUSCULAR HGB CONC 32.3 g/dl (32.0-36.5); MEAN CORPUSCULAR VOLUME 87.3 fl (80.0-96.0); MONO # 0.6 10^3/uL (0.0-0.8); MONO % 6.3 % (2.0-8.0); NEUTROPHILS # 6.8 10^3/uL (1.5-8.5); NEUTROPHILS % 72.2 % (36.0-66.0); PLATELET COUNT, AUTOMATED 270 10^3/uL (150-450); RED BLOOD COUNT 4.65 10^6/uL (4.30-6.10); WHITE BLOOD COUNT 9.4 10^3/uL (4.0-10.0)
[2022-05-10 09:19] LABS: LIPASE 23 U/L (12-53)
[2022-05-10 09:24] LABS: ALBUMIN 3.5 G/DL (3.2-5.2); ALKALINE PHOSPHATASE 69 U/L (46-116); ALT/SGPT 61 U/L (7.0-40); AST/SGOT 42 U/L (<34); BILIRUBIN,DIRECT 0.2 MG/DL (<0.4); BILIRUBIN,TOTAL 0.6 MG/DL (0.3-1.2); BLOOD UREA NITROGEN 10 MG/DL (9-23); CALCIUM LEVEL 8.5 MG/DL (8.5-10.1); CARBON DIOXIDE LEVEL 27 MMOL/L (20-31); CHLORIDE LEVEL 105 MMOL/L (98-107); CREATININE FOR GFR 0.87 MG/DL (0.70-1.30); GLOMERULAR FILTRATION RATE > 60.0 (>60); GLUCOSE, FASTING 85 MG/DL (60-100); POTASSIUM SERUM 4.3 MMOL/L (3.5-5.1); SODIUM LEVEL 140 MMOL/L (136-145); TOTAL PROTEIN 6.8 G/DL (5.7-8.2)
[2022-05-10 10:04] VITALS: BP 130/78
== END 2022-05-10 10:15 | disposition home or self-care (01) ==
LOC: EDBD 06:00 → M ED 06:00
DX: R10.9 Unspecified abdominal pain (principal); R19.7 Diarrhea, unspecified; F32.A Depression, unspecified; F41.9 Anxiety disorder, unspecified; K21.9 Gastro-esophageal reflux disease without esophagitis; J45.909 Unspecified asthma, uncomplicated; F16.10 Hallucinogen abuse, uncomplicated; F17.200 Nicotine dependence, unspecified, uncomplicated; E55.9 Vitamin D deficiency, unspecified; Z88.2 Allergy status to sulfonamides; Z79.899 Other long term (current) drug therapy

== ENCOUNTER 2022-05-14 03:15 | Inpatient (IN) | payer MEDICAID, SELFPAY ==
[~2022-05-14 03:15] MED LIST changes: +RISP-7 PO
[2022-05-14 04:21] LABS: HEMATOCRIT 44.8 % (42.0-52.0); HEMOGLOBIN 14.7 g/dl (13.5-17.5); MEAN CORPUSCULAR HEMOGLOBIN 28.1 pg (27.0-33.0); MEAN CORPUSCULAR HGB CONC 32.8 g/dl (32.0-36.5); MEAN CORPUSCULAR VOLUME 85.5 fl (80.0-96.0); PLATELET COUNT, AUTOMATED 326 10^3/uL (150-450); RED BLOOD COUNT 5.24 10^6/uL (4.30-6.10); WHITE BLOOD COUNT 10.1 10^3/uL (4.0-10.0)
[2022-05-14 04:34] LABS: BARBITURATES URINE NEGATIVE (NEGATIVE); BENZODIAZEPINES URINE NEGATIVE (NEGATIVE); COCAINE METABOLITE URINE NEGATIVE (NEGATIVE); PHENCYCLIDINE URINE NEGATIVE (NEGATIVE)
[2022-05-14 04:35] LABS: METHADONE URINE NEGATIVE (NEGATIVE); OPIATES URINE NEGATIVE (NEGATIVE)
[2022-05-14 04:44] LABS: ETHYL ALCOHOL (ETHANOL) 0.004 % (0.000-0.010)
[2022-05-14 04:46] LABS: ACETAMINOPHEN LEVEL < 2.0 UG/ML (10.0-20.0); SALICYLATE LEVEL < 3.0 MG/DL (<30)
[2022-05-14 04:46] LABS: AMPHETAMINES LEVEL URINE POSITIVE (NEGATIVE); CANNABINOIDS URINE POSITIVE (NEGATIVE)
[2022-05-14 04:50] LABS: ALBUMIN 4.3 G/DL (3.2-5.2); ALKALINE PHOSPHATASE 85 U/L (46-116); ALT/SGPT 49 U/L (7.0-40); AST/SGOT 38 U/L (<34); BILIRUBIN,DIRECT 0.3 MG/DL (<0.4); BILIRUBIN,TOTAL 0.8 MG/DL (0.3-1.2); BLOOD UREA NITROGEN 12 MG/DL (9-23); CALCIUM LEVEL 9.4 MG/DL (8.5-10.1); CARBON DIOXIDE LEVEL 26 MMOL/L (20-31); CHLORIDE LEVEL 102 MMOL/L (98-107); CREATININE FOR GFR 1.17 MG/DL (0.70-1.30); GLOMERULAR FILTRATION RATE > 60.0 (>60); GLUCOSE, FASTING 80 MG/DL (60-100); POTASSIUM SERUM 4.2 MMOL/L (3.5-5.1); SODIUM LEVEL 138 MMOL/L (136-145); THYROID STIMULATING HORMONE 3.946 uIU/ML (0.55-4.78); TOTAL PROTEIN 8.2 G/DL (5.7-8.2)
[2022-05-14] MEDS: NICOTINE 21MG/24HR 1 EA TRANSDERMAL TD SCH (09:00)
[2022-05-14] MEDS: OMEPRAZOLE 20MG CAP PO SCH (09:00)
[2022-05-14] MEDS: LORATADINE 10 MG TAB PO SCH (09:00)
[2022-05-14] MEDS ORDERED: OMEP-173 PO (10:16)
[2022-05-14] MEDS ORDERED: LORA-622 PO (10:16)
[2022-05-14] MEDS ORDERED: RISP-7 PO (10:16)
[2022-05-14] MEDS ORDERED: MED REC COMMENT (10:17)
[2022-05-14] MEDS ORDERED: HOME MED LIST COMPLETE! XX SCH (10:20)
[2022-05-14] MEDS ORDERED: diphenhydrAMINE 25MG CAP PO PRN (14:40)
[2022-05-14] MEDS ORDERED: MAALOX 30 ML SUSP *UDC PO PRN (14:40)
[2022-05-14] MEDS ORDERED: LORazepam 1 MG TAB PO PRN (14:40)
[2022-05-14] MEDS ORDERED: traZODone 50 MG TAB PO PRN (14:40)
[2022-05-14] MEDS ORDERED: IBUPROFEN 400MG TAB PO PRN (14:40)
[2022-05-14] MEDS ORDERED: MOM 30ML SUSPENSION UDC PO PRN (14:40)
[2022-05-14] MEDS: risperiDONE 1 MG TAB PO SCH (20:20)
[2022-05-15 00:16] VITALS: BP 124/72
[2022-05-15 06:43] VITALS: BP 130/84
[2022-05-15] MEDS: risperiDONE 1 MG TAB PO SCH ×2 (08:59→20:49)
[2022-05-15] MEDS: OMEPRAZOLE 20MG CAP PO SCH ×3 (08:59→09:08)
[2022-05-15] MEDS: NICOTINE 21MG/24HR 1 EA TRANSDERMAL TD SCH ×3 (08:59→09:08)
[2022-05-15] MEDS: LORATADINE 10 MG TAB PO SCH ×3 (08:59→09:08)
[2022-05-15 13:46] LABS: HEPATITIS B SURFACE ANTIGEN NEGATIVE (NEGATIVE)
[2022-05-15 14:08] LABS: HEPATITIS B CORE ANTIBODY IGM NEGATIVE (NEGATIVE)
[2022-05-15 15:18] LABS: HEPATITIS C VIRUS ABY INDEX > 11.0 INDEX (<0.8)
[2022-05-16 06:38] VITALS: BP 137/77
[2022-05-16 06:51] LABS: CHOLESTEROL RISK RATIO 4.51 (<5); HDL CHOLESTEROL 28.6 MG/DL (>40); LDL CHOLESTEROL 74.2 MG/DL (<100); NON-HDL-C 100.4 MG/DL
[2022-05-16] MEDS: NICOTINE 21MG/24HR 1 EA TRANSDERMAL TD SCH (09:18)
[2022-05-16] MEDS: LORATADINE 10 MG TAB PO SCH (09:18)
[2022-05-16] MEDS: OMEPRAZOLE 20MG CAP PO SCH (09:18)
[2022-05-16] MEDS: risperiDONE 1 MG TAB PO SCH ×2 (09:18→20:22)
[2022-05-16] MEDS ORDERED: ARIPiprazole 2 MG TAB PO SCH (21:00)
[2022-05-17 06:15] VITALS: BP 133/66
[2022-05-17] MEDS ORDERED: ARIPiprazole MONOHYDRATE 400 MG INJ (ABILIFY)(FREE PSY INPT ONLY) IM ONE (08:00)
[2022-05-17] MEDS: risperiDONE 1 MG TAB PO SCH ×2 (09:01→20:40)
[2022-05-17] MEDS: NICOTINE 21MG/24HR 1 EA TRANSDERMAL TD SCH (09:01)
[2022-05-17] MEDS: LORATADINE 10 MG TAB PO SCH (09:01)
[2022-05-17] MEDS: OMEPRAZOLE 20MG CAP PO SCH (09:01)
[2022-05-17 19:11] VITALS: BP 140/82
[2022-05-18 06:19] VITALS: BP 128/60
[2022-05-18] MEDS: OMEPRAZOLE 20MG CAP PO SCH (09:26)
[2022-05-18] MEDS: risperiDONE 1 MG TAB PO SCH (09:26)
[2022-05-18] MEDS: LORATADINE 10 MG TAB PO SCH (09:26)
[2022-05-18] MEDS: NICOTINE 21MG/24HR 1 EA TRANSDERMAL TD SCH (09:27)
[2022-05-18] MEDS ORDERED: ABIL1TAB11 PO (10:07)
[2022-05-18] MEDS ORDERED: NICO21PAT TD (10:07)
[2022-05-18] MEDS ORDERED: RISP-8 PO (10:07)
[2022-05-18] MEDS ORDERED: ABIL1INJ2 IM (10:07)
== END 2022-05-18 12:04 | disposition home or self-care (01) | DRG 750 ==
LOC: M ED 03:15 → M ED INP 14:38 → M PSY 23:41
PROVIDERS: ADMIT Student in an Organized Health Care Education/Training Program; ATTEND Student in an Organized Health Care Education/Training Program
DX: F25.0 Schizoaffective disorder, bipolar type (principal); R45.850 Homicidal ideations; R45.851 Suicidal ideations; R74.01 Elevation of levels of liver transaminase levels; F15.159 Other stimulant abuse with stimulant-induced psychotic disorder, unspecified; F12.10 Cannabis abuse, uncomplicated; F17.200 Nicotine dependence, unspecified, uncomplicated; Z20.822 Contact with and (suspected) exposure to COVID-19; Z79.899 Other long term (current) drug therapy; Z88.2 Allergy status to sulfonamides; Z81.8 Family history of other mental and behavioral disorders

== ENCOUNTER 2022-06-10 17:24 | Emergency (ER) | payer MEDICAID ==
[~2022-06-10] VITALS: Ht 190.5 cm; Wt 181.0 kg
[~2022-06-10 17:24] MED LIST changes: +ABIL1INJ2 IM; +ABIL1TAB11 PO; +LORA-622 PO; +MED REC COMMENT; +RISP-8 PO
[2022-06-10 18:21] LABS: HEMATOCRIT 47.3 % (42.0-52.0); HEMOGLOBIN 15.4 g/dl (13.5-17.5); MEAN CORPUSCULAR HEMOGLOBIN 27.7 pg (27.0-33.0); MEAN CORPUSCULAR HGB CONC 32.6 g/dl (32.0-36.5); MEAN CORPUSCULAR VOLUME 85.1 fl (80.0-96.0); PLATELET COUNT, AUTOMATED 320 10^3/uL (150-450); RED BLOOD COUNT 5.56 10^6/uL (4.30-6.10); WHITE BLOOD COUNT 10.6 10^3/uL (4.0-10.0)
[2022-06-10 18:40] LABS: BARBITURATES URINE NEGATIVE (NEGATIVE); BENZODIAZEPINES URINE NEGATIVE (NEGATIVE); COCAINE METABOLITE URINE NEGATIVE (NEGATIVE); METHADONE URINE NEGATIVE (NEGATIVE); OPIATES URINE NEGATIVE (NEGATIVE); PHENCYCLIDINE URINE NEGATIVE (NEGATIVE)
[2022-06-10 18:43] LABS: AMPHETAMINES LEVEL URINE POSITIVE (NEGATIVE); CANNABINOIDS URINE POSITIVE (NEGATIVE)
[2022-06-10 18:45] LABS: ETHYL ALCOHOL (ETHANOL) < 0.003 % (0.000-0.010)
[2022-06-10 18:47] LABS: ACETAMINOPHEN LEVEL < 2.0 UG/ML (10.0-20.0); ALKALINE PHOSPHATASE 85 U/L (46-116); ALT/SGPT 36 U/L (7.0-40); AST/SGOT 29 U/L (<34); BILIRUBIN,DIRECT 0.2 MG/DL (<0.4); BILIRUBIN,TOTAL 0.6 MG/DL (0.3-1.2); BLOOD UREA NITROGEN 12 MG/DL (9-23); CALCIUM LEVEL 9.3 MG/DL (8.5-10.1); CARBON DIOXIDE LEVEL 27 MMOL/L (20-31); CHLORIDE LEVEL 104 MMOL/L (98-107); CREATININE FOR GFR 1.05 MG/DL (0.70-1.30); GLOMERULAR FILTRATION RATE > 60.0 (>60); GLUCOSE, FASTING 81 MG/DL (60-100); POTASSIUM SERUM 3.9 MMOL/L (3.5-5.1); SALICYLATE LEVEL < 3.0 MG/DL (<30); SODIUM LEVEL 138 MMOL/L (136-145); TOTAL PROTEIN 8.2 G/DL (5.7-8.2)
[2022-06-10 18:50] LABS: THYROID STIMULATING HORMONE 2.368 uIU/ML (0.55-4.78)
[2022-06-10] MEDS ORDERED: ABIL1INJ2 IM (19:59)
[2022-06-10] MEDS ORDERED: RISP-8 PO (19:59)
[2022-06-10] MEDS ORDERED: HOME MED LIST COMPLETE! XX SCH (20:00)
[2022-06-11 12:15] VITALS: BP 120/70
[2022-06-11] MEDS ORDERED: ARIPiprazole MONOHYDRATE 400 MG INJ (ABILIFY)(FREE PSY INPT ONLY) IM ONE (14:00)
[2022-06-11] MEDS ORDERED: ARIPiprazole MONOHYDRATE 400 MG INJ (ABILIFY) PT CHG ONE IM (14:30)
== END 2022-06-11 16:03 | disposition home or self-care (01) ==
LOC: M ED 17:24
DX: F19.10 Other psychoactive substance abuse, uncomplicated (principal); F20.9 Schizophrenia, unspecified; F17.200 Nicotine dependence, unspecified, uncomplicated; F10.10 Alcohol abuse, uncomplicated; Z88.2 Allergy status to sulfonamides; Z79.899 Other long term (current) drug therapy
CPT/HCPCS: 80048; 80076; 80143; 80307; 82077; 84443; 85027; 87635; 96372; 99284; J0401

== ENCOUNTER 2023-03-17 19:31 | Emergency (ER) | payer MEDICAID, OTHER ==
[~2023-03-17] VITALS: Ht 195.6 cm; Wt 163.2 kg
[~2023-03-17 19:31] MED LIST changes: +BENZ0.5T2 PO; -BENZ0.5T23 PO; +RISP-105 PO; -RISP-8 PO
[2023-03-17 22:11] VITALS: BP 128/80; TEMP 97.2; O2SAT 97
[2023-03-18] MEDS ORDERED: AMOX875T PO (22:46)
== END 2023-03-17 23:00 | disposition home or self-care (01) ==
LOC: M ED 19:31
DX: L03.116 Cellulitis of left lower limb (principal); F41.9 Anxiety disorder, unspecified; F31.9 Bipolar disorder, unspecified; F19.10 Other psychoactive substance abuse, uncomplicated; Z79.2 Long term (current) use of antibiotics; Z79.83 Long term (current) use of bisphosphonates; Z79.899 Other long term (current) drug therapy; Z88.2 Allergy status to sulfonamides

== ENCOUNTER 2023-03-18 18:30 | Emergency (ER) | payer OTHER ==
[~2023-03-18] VITALS: Ht 193 cm; Wt 163.1 kg
[2023-03-18] MEDS ORDERED: AMOXICILLIN 500 MG CAP PO ONE (22:45)
[2023-03-18] MEDS ORDERED: AMOX875T PO (22:46)
[2023-03-18 22:55] VITALS: BP 158/74; TEMP 98; O2SAT 98
== END 2023-03-18 22:58 | disposition home or self-care (01) ==
LOC: M ED 18:30 → EDBD 18:30 → M ED 22:58
DX: J02.0 Streptococcal pharyngitis (principal); F17.200 Nicotine dependence, unspecified, uncomplicated; Z88.2 Allergy status to sulfonamides; Z79.2 Long term (current) use of antibiotics; Z79.83 Long term (current) use of bisphosphonates; Z79.899 Other long term (current) drug therapy

== ENCOUNTER 2023-03-21 03:33 | Emergency (ER) | payer OTHER, SELFPAY ==
[~2023-03-21] VITALS: Ht 195.6 cm; Wt 162.4 kg
[~2023-03-21 03:33] MED LIST changes: +AMOX875T PO
[2023-03-21] MEDS ORDERED: CIPR0.3S37 OU (06:38)
[2023-03-21] MEDS ORDERED: CIPROFLOXACIN 0.3% OPHTH SOLN 2.5ML OU ONE (06:40)
[2023-03-21 06:48] VITALS: BP 156/88; TEMP 98; O2SAT 99
== END 2023-03-21 07:30 | disposition home or self-care (01) ==
LOC: M ED 03:33 → EDBD 03:33 → M ED 07:30
DX: H10.33 Unspecified acute conjunctivitis, bilateral (principal); F19.10 Other psychoactive substance abuse, uncomplicated; K21.9 Gastro-esophageal reflux disease without esophagitis; F17.290 Nicotine dependence, other tobacco product, uncomplicated; Z88.2 Allergy status to sulfonamides; Z79.2 Long term (current) use of antibiotics; Z79.899 Other long term (current) drug therapy

== ENCOUNTER 2023-03-22 00:44 | Emergency (ER) | payer OTHER, SELFPAY ==
[~2023-03-22] VITALS: Ht 190.5 cm; Wt 161.3 kg
[~2023-03-22 00:44] MED LIST changes: +CIPR0.3S37 OU
[2023-03-22 01:05] VITALS: BP 144/94; TEMP 97.7; O2SAT 97
== END 2023-03-22 02:48 | disposition home or self-care (01) ==
LOC: M ED 00:44
DX: L84 Corns and callosities (principal); Z59.00 Homelessness unspecified; J45.909 Unspecified asthma, uncomplicated; F17.290 Nicotine dependence, other tobacco product, uncomplicated; Z88.2 Allergy status to sulfonamides; Z79.2 Long term (current) use of antibiotics; Z79.899 Other long term (current) drug therapy

== ENCOUNTER 2023-04-22 07:47 | Emergency (ER) | payer MEDICAID, SELFPAY ==
[~2023-04-22] VITALS: Ht 190.5 cm; Wt 158.2 kg
[~2023-04-22 07:47] MED LIST changes: -RISP-7 PO; +RISP0.5T82 PO
[2023-04-22 07:52] VITALS: BP 142/88; TEMP 98.2; O2SAT 99
[2023-04-22] MEDS ORDERED: NICOLOZ MT (08:02)
[2023-04-22] MEDS ORDERED: CLON0.5T2 (08:02)
== END 2023-04-22 10:49 | disposition left against medical advice (07) ==
LOC: M ED 07:47
DX: Z53.21 Procedure and treatment not carried out due to patient leaving prior to being seen by health care provider (principal)

== ENCOUNTER 2023-04-22 20:45 | Emergency (ER) | payer MEDICAID ==
[~2023-04-22] VITALS: Ht 190.5 cm; Wt 150.0 kg
[~2023-04-22 20:45] MED LIST changes: +CLON0.5T2; +NICOLOZ MT
[2023-04-22 22:49] VITALS: BP 145/76; TEMP 97.8; O2SAT 95
[2023-04-23 02:21] LABS: AMPHETAMINES LEVEL URINE NEGATIVE (NEGATIVE); BARBITURATES URINE NEGATIVE (NEGATIVE); BENZODIAZEPINES URINE NEGATIVE (NEGATIVE); COCAINE METABOLITE URINE NEGATIVE (NEGATIVE); METHADONE URINE NEGATIVE (NEGATIVE)
[2023-04-23 02:22] LABS: OPIATES URINE NEGATIVE (NEGATIVE); PHENCYCLIDINE URINE NEGATIVE (NEGATIVE)
[2023-04-23 02:47] LABS: CANNABINOIDS URINE POSITIVE (NEGATIVE)
[2023-04-23 02:57] LABS: BASO # 0.1 10^3/uL (0.0-0.2); BASO % 0.4 % (0.0-1.0); EOS # 0.5 10^3/uL (0.0-0.5); EOS % 4.1 % (0.0-3.0); HEMATOCRIT 40.9 % (42.0-52.0); HEMOGLOBIN 13.3 g/dl (13.5-17.5); LYMPH # 4.2 10^3/uL (1.5-5.0); LYMPH % 34.7 % (24.0-44.0); MEAN CORPUSCULAR HEMOGLOBIN 28.9 pg (27.0-33.0); MEAN CORPUSCULAR HGB CONC 32.5 g/dl (32.0-36.5); MEAN CORPUSCULAR VOLUME 88.9 fl (80.0-96.0); MONO # 1.1 10^3/uL (0.0-0.8); MONO % 9.5 % (2.0-8.0); NEUTROPHILS # 6.1 10^3/uL (1.5-8.5); NEUTROPHILS % 51.1 % (36.0-66.0); PLATELET COUNT, AUTOMATED 289 10^3/uL (150-450)
[2023-04-23 03:03] LABS: ETHYL ALCOHOL (ETHANOL) 0.012 % (0.000-0.010)
[2023-04-23 03:04] LABS: SALICYLATE LEVEL < 3.0 MG/DL (<30)
[2023-04-23 03:14] LABS: ALBUMIN 3.4 G/DL (3.2-5.2); ALKALINE PHOSPHATASE 81 U/L (46-116); ALT/SGPT 34 U/L (7.0-40); AST/SGOT 48 U/L (<34); BILIRUBIN,DIRECT 0.1 MG/DL (<0.4); BILIRUBIN,TOTAL 0.4 MG/DL (0.3-1.2); BLOOD UREA NITROGEN 15 MG/DL (9-23); CALCIUM LEVEL 8.6 MG/DL (8.5-10.1); CARBON DIOXIDE LEVEL 27 MMOL/L (20-31); CHLORIDE LEVEL 106 MMOL/L (98-107); CREATININE FOR GFR 0.89 MG/DL (0.70-1.30); GLOMERULAR FILTRATION RATE > 60.0 (>60); GLUCOSE, FASTING 100 MG/DL (60-100); SODIUM LEVEL 139 MMOL/L (136-145); THYROID STIMULATING HORMONE 6.076 uIU/ML (0.55-4.78); TOTAL PROTEIN 6.8 G/DL (5.7-8.2)
[2023-04-23 03:15] LABS: POTASSIUM SERUM 4.3 MMOL/L (3.5-5.1)
== END 2023-04-23 03:51 | disposition home or self-care (01) ==
LOC: EDBD 20:45 → M ED 20:45
DX: Z76.5 Malingerer [conscious simulation] (principal); Z59.00 Homelessness unspecified; F32.A Depression, unspecified; Z88.2 Allergy status to sulfonamides; Z79.2 Long term (current) use of antibiotics; Z79.899 Other long term (current) drug therapy

== ENCOUNTER 2023-10-11 04:01 | Emergency (ER) | payer OTHER, SELFPAY ==
[~2023-10-11] VITALS: Ht 182.9 cm; Wt 144.2 kg
[~2023-10-11 04:01] MED LIST changes: -NICOLOZ MT; +NICOLOZ4 MT
[2023-10-11] MEDS: ACETAMINOPHEN TAB 650MG DOSE (2X325MG) PO ONE (08:47)
[2023-10-11 08:49] VITALS: BP 131/65; TEMP 96.7; O2SAT 99
== END 2023-10-11 08:53 | disposition home or self-care (01) ==
LOC: M ED 04:01 → EDBD 04:01 → M ED 08:53
DX: S09.90XA Unspecified injury of head, initial encounter (principal); Y04.8XXA Assault by other bodily force, initial encounter; Y92.410 Unspecified street and highway as the place of occurrence of the external cause; Y93.9 Activity, unspecified; Y99.9 Unspecified external cause status; F31.9 Bipolar disorder, unspecified; F17.200 Nicotine dependence, unspecified, uncomplicated; Z88.2 Allergy status to sulfonamides; Z79.899 Other long term (current) drug therapy

== ENCOUNTER 2023-11-23 21:05 | Emergency (ER) | payer OTHER, SELFPAY ==
[~2023-11-23] VITALS: Ht 193 cm; Wt 146.0 kg
[2023-11-23 21:10] VITALS: BP 144/98; TEMP 98.2; O2SAT 96
[2023-11-23] MEDS ORDERED: MUCI1TAB16 PO (22:40)
[2023-11-24] MEDS ORDERED: BUSP10TA PO (07:20)
== END 2023-11-23 22:54 | disposition home or self-care (01) ==
LOC: M ED 21:05
DX: B34.1 Enterovirus infection, unspecified (principal); B34.8 Other viral infections of unspecified site; K21.9 Gastro-esophageal reflux disease without esophagitis; F31.9 Bipolar disorder, unspecified; F15.10 Other stimulant abuse, uncomplicated; F17.200 Nicotine dependence, unspecified, uncomplicated; Z88.2 Allergy status to sulfonamides; Z79.899 Other long term (current) drug therapy

== ENCOUNTER 2023-11-24 07:06 | Emergency (ER) | payer OTHER ==
[~2023-11-24] VITALS: Ht 193 cm; Wt 146.9 kg
[~2023-11-24 07:06] MED LIST changes: +MUCI1TAB16 PO
[2023-11-24] MEDS ORDERED: BUSP10TA PO (07:20)
[2023-11-24 08:48] VITALS: BP 144/89; TEMP 97.8; O2SAT 95
== END 2023-11-24 09:38 | disposition home or self-care (01) ==
LOC: M ED 07:06
DX: F43.0 Acute stress reaction (principal); S90.821A Blister (nonthermal), right foot, initial encounter; S90.822A Blister (nonthermal), left foot, initial encounter; K21.9 Gastro-esophageal reflux disease without esophagitis; F31.9 Bipolar disorder, unspecified; F20.9 Schizophrenia, unspecified; Z88.2 Allergy status to sulfonamides; Z59.00 Homelessness unspecified; Z79.899 Other long term (current) drug therapy; Y92.9 Unspecified place or not applicable; Y93.01 Activity, walking, marching and hiking; Y99.9 Unspecified external cause status

== ENCOUNTER 2023-12-30 10:06 | Emergency (ER) | payer OTHER ==
[~2023-12-30] VITALS: Ht 193 cm; Wt 147.9 kg
[~2023-12-30 10:06] MED LIST changes: +BUSP10TA PO; -ZIPR60CA11; +ZIPR60CA21
[2023-12-30 10:09] VITALS: BP 127/96; TEMP 97; O2SAT 100
[2023-12-30] MEDS: SIMETHICONE 80MG CHEW TAB PO ONE (11:16)
[2023-12-30] MEDS: ONDANSETRON 4MG ORAL DISINTEGRATING TAB PO ONE (11:16)
[2023-12-30 11:43] LABS: BASO % 0.6 % (0.0-1.0); EOS # 0.2 10^3/uL (0.0-0.5); EOS % 2.5 % (0.0-3.0); HEMATOCRIT 43.9 % (42.0-52.0); HEMOGLOBIN 13.8 g/dl (13.5-17.5); LYMPH # 2.1 10^3/uL (1.5-5.0); LYMPH % 31.7 % (24.0-44.0); MEAN CORPUSCULAR HEMOGLOBIN 28.8 pg (27.0-33.0); MEAN CORPUSCULAR HGB CONC 31.4 g/dl (32.0-36.5); MEAN CORPUSCULAR VOLUME 91.6 fl (80.0-96.0); MONO # 0.6 10^3/uL (0.0-0.8); MONO % 8.6 % (2.0-8.0); NEUTROPHILS # 3.8 10^3/uL (1.5-8.5); NEUTROPHILS % 56.3 % (36.0-66.0); PLATELET COUNT, AUTOMATED 264 10^3/uL (150-450); RED BLOOD COUNT 4.79 10^6/uL (4.30-6.10); WHITE BLOOD COUNT 6.8 10^3/uL (4.0-10.0)
[2023-12-30 12:04] LABS: APPEARANCE, URINE HAZY (CLEAR); BACTERIA, URINE AUTO NEGATIVE (NEGATIVE); BILIRUBIN, URINE AUTO NEGATIVE (NEGATIVE); BLOOD, URINE BLOOD NEGATIVE (NEGATIVE); CALCIUM OXALATE CRYSTALS SMALL; COLOR, URINE AMBER (YELLOW); GLUCOSE, URINE (UA) AUTO NEGATIVE (NEGATIVE); KETONE, URINE AUTO TRACE mg/dL (NEGATIVE); LEUKOCYTE ESTERASE, URINE AUTO NEGATIVE (NEGATIVE); MUCUS, URINE SMALL (NEGATIVE); NITRITE, URINE AUTO NEGATIVE (NEGATIVE); PROTEIN, URINE AUTO NEGATIVE (NEGATIVE); RBC, URINE AUTO 3 /HPF (0-3); SQUAMOUS EPITHELIAL CELL UR AU 2 /HPF (0-6); WBC, URINE AUTO 3 /HPF (0-3)
[2023-12-30 12:07] LABS: ALBUMIN 3.6 G/DL (3.2-5.2); ALKALINE PHOSPHATASE 91 U/L (40-129); ALT/SGPT 30 U/L (7.0-40); AST/SGOT 19 U/L (<34); BILIRUBIN,DIRECT 0.1 MG/DL (<0.4); BILIRUBIN,TOTAL 0.3 MG/DL (0.3-1.2); TOTAL PROTEIN 7.3 G/DL (5.7-8.2)
[2023-12-30 13:14] LABS: Trichomonas vaginalis (AMP) NOT DETECTED (NEGATIVE)
[2023-12-30 13:25] LABS: BLOOD UREA NITROGEN 16 MG/DL (9-23); CARBON DIOXIDE LEVEL 30 MMOL/L (20-31); CHLORIDE LEVEL 108 MMOL/L (98-107); CREATININE FOR GFR 1.03 MG/DL (0.70-1.30); GLOMERULAR FILTRATION RATE > 60.0 (>60); GLUCOSE, FASTING 65 MG/DL (60-100); POTASSIUM SERUM 4.5 MMOL/L (3.5-5.1); SODIUM LEVEL 141 MMOL/L (136-145)
[2023-12-30 13:39] LABS: GC DNA AMPLIFICATION NEGATIVE (NEGATIVE)
[2023-12-30] MEDS ORDERED: SIME80CH6 PO (14:16)
[2023-12-30] MEDS ORDERED: ONDA-282 PO (14:16)
== END 2023-12-30 14:39 | disposition home or self-care (01) ==
LOC: M ED 10:06
DX: K52.9 Noninfective gastroenteritis and colitis, unspecified (principal); R14.0 Abdominal distension (gaseous); F31.9 Bipolar disorder, unspecified; F41.9 Anxiety disorder, unspecified; Z88.2 Allergy status to sulfonamides; Z79.899 Other long term (current) drug therapy; Z79.83 Long term (current) use of bisphosphonates

== ENCOUNTER 2025-01-24 14:27 | Emergency (ER) | payer OTHER ==
[~2025-01-24] VITALS: Ht 195.6 cm; Wt 163.6 kg
[~2025-01-24 14:27] MED LIST changes: -BACTDSTA PO; +LORA-1164 PO; -LORA-622 PO; +ONDA-282 PO; +SIME80CH6 PO; +SULF-8 PO
[2025-01-24 16:33] VITALS: BP 128/69; TEMP 97.8; O2SAT 97
[2025-01-24] MEDS ORDERED: AMOX875T PO (16:56)
== END 2025-01-24 17:16 | disposition home or self-care (01) ==
LOC: M ED 14:27
DX: H66.91 Otitis media, unspecified, right ear (principal); K12.30 Oral mucositis (ulcerative), unspecified; K21.9 Gastro-esophageal reflux disease without esophagitis; F17.200 Nicotine dependence, unspecified, uncomplicated; Z88.2 Allergy status to sulfonamides; Z79.2 Long term (current) use of antibiotics; Z79.899 Other long term (current) drug therapy

== ENCOUNTER 2025-02-08 15:38 | Emergency (ER) | payer OTHER ==
[~2025-02-08] VITALS: Ht 198.1 cm; Wt 186.0 kg
[2025-02-08 17:42] LABS: BASO # 0.0 10^3/uL (0.0-0.2); BASO % 0.5 % (0.0-1.0); EOS # 0.3 10^3/uL (0.0-0.5); EOS % 4.8 % (0.0-3.0); LYMPH # 2.0 10^3/uL (1.5-5.0); LYMPH % 34.7 % (24.0-44.0); MONO # 0.5 10^3/uL (0.0-0.8); MONO % 9.3 % (2.0-8.0); NEUTROPHILS # 2.9 10^3/uL (1.5-8.5); NEUTROPHILS % 50.5 % (36.0-66.0); PLATELET COUNT, AUTOMATED 248 10^3/uL (150-450)
[2025-02-08 18:09] LABS: ALT/SGPT 28 U/L (7.0-40); AST/SGOT 43 U/L (<34); CALCIUM LEVEL 8.1 MG/DL (8.5-10.1); CARBON DIOXIDE LEVEL 28 MMOL/L (20-31); CHLORIDE LEVEL 109 MMOL/L (98-107); CREATININE FOR GFR 1.03 MG/DL (0.70-1.30); GLOMERULAR FILTRATION RATE > 90.0 (>60); POTASSIUM SERUM 4.4 MMOL/L (3.5-5.1); SODIUM LEVEL 143 MMOL/L (136-145)
[2025-02-08 18:56] VITALS: BP 141/86; TEMP 98.6; O2SAT 98
== END 2025-02-08 19:11 | disposition home or self-care (01) ==
LOC: M ED 17:18
DX: R19.7 Diarrhea, unspecified (principal); Z88.2 Allergy status to sulfonamides; Z79.1 Long term (current) use of non-steroidal anti-inflammatories (NSAID); Z79.899 Other long term (current) drug therapy

== ENCOUNTER 2025-02-17 11:31 | Emergency (ER) | payer OTHER ==
[~2025-02-17] VITALS: Ht 198.1 cm; Wt 186.6 kg
[2025-02-17] MEDS ORDERED: BUPR150T12 (11:49)
[2025-02-17] MEDS ORDERED: BUPR1FIL (11:49)
[2025-02-17] MEDS ORDERED: SILD100T (11:49)
[2025-02-17] MEDS ORDERED: DOCU100C16 (11:49)
[2025-02-17] MEDS ORDERED: RISP-105 (11:49)
[2025-02-17 13:24] LABS: KETONE, URINE AUTO RFX NEGATIVE (NEGATIVE); LEUKOCYTE ESTERASE UR AUTO RFX NEGATIVE (NEGATIVE); NITRITE, URINE AUTO RFX NEGATIVE (NEGATIVE); RBC, URINE AUTO RFX 0 /HPF (0-3); SQUAM EPITHELIAL CELL UR AURFX 0 /HPF (0-6); WBC, URINE AUTO RFX 0 /HPF (0-3)
[2025-02-17 15:41] LABS: BASO # 0.0 10^3/uL (0.0-0.2); BASO % 0.6 % (0.0-1.0); EOS # 0.3 10^3/uL (0.0-0.5); EOS % 4.0 % (0.0-3.0); LYMPH # 2.4 10^3/uL (1.5-5.0); LYMPH % 37.3 % (24.0-44.0); MONO # 0.5 10^3/uL (0.0-0.8); MONO % 8.2 % (2.0-8.0); NEUTROPHILS # 3.2 10^3/uL (1.5-8.5); NEUTROPHILS % 49.6 % (36.0-66.0); PLATELET COUNT, AUTOMATED 260 10^3/uL (150-450)
[2025-02-17 17:53] VITALS: BP 139/92; TEMP 98; O2SAT 98
== END 2025-02-17 17:54 | disposition home or self-care (01) ==
LOC: M ED 11:31
DX: R82.998 Other abnormal findings in urine (principal); N44.00 Torsion of testis, unspecified; Z88.2 Allergy status to sulfonamides; Z79.899 Other long term (current) drug therapy